=== PATIENT | male | born 1940 | race Caucasian/White ===

== ENCOUNTER → 2019-07-28 08:41 | Outpatient (BNVA) | payer MEDICARE, BC, SELFPAY | PROVIDERS: Family Provider Family Medicine; PCP Family Medicine; Visit Provider Internal Medicine Cardiovascular Disease | DX: I48.91 Unspecified atrial fibrillation (principal) | CPT/HCPCS: 85610 ==

== ENCOUNTER → 2019-08-08 10:01 | Outpatient (BNVA) | payer MEDICARE, BC, SELFPAY | PROVIDERS: Family Provider Family Medicine; PCP Family Medicine; Visit Provider Family Medicine | DX: E11.9 Type 2 diabetes mellitus without complications (principal); I10 Essential (primary) hypertension; R35.1 Nocturia; N18.9 Chronic kidney disease, unspecified | CPT/HCPCS: 80053; 80061; 84153; 85025 ==

== ENCOUNTER 2019-08-15 10:51 | Outpatient (CLI) | payer MEDICARE, BC, SELFPAY ==
[2019-08-15 13:39] VITALS: O2SAT 96
== END 2019-08-15 10:52 | disposition home or self-care (01) ==
LOC: RT 10:56
PROVIDERS: Family Provider Family Medicine; PCP Family Medicine; Visit Provider Internal Medicine Critical Care Medicine
DX: J44.9 Chronic obstructive pulmonary disease, unspecified (principal)
CPT/HCPCS: 94060; 94726; 94729

== ENCOUNTER → 2019-09-01 08:29 | Outpatient (BNVA) | payer MEDICARE, BC, SELFPAY | PROVIDERS: Family Provider Family Medicine; PCP Family Medicine; Visit Provider Internal Medicine Cardiovascular Disease | DX: I48.91 Unspecified atrial fibrillation (principal); Z79.01 Long term (current) use of anticoagulants | CPT/HCPCS: 85610 ==

== ENCOUNTER → 2019-09-08 08:39 | Outpatient (BNVA) | payer MEDICARE, BC, SELFPAY | PROVIDERS: Family Provider Family Medicine; PCP Family Medicine; Visit Provider Internal Medicine Cardiovascular Disease | DX: I48.91 Unspecified atrial fibrillation (principal) | CPT/HCPCS: 85610 ==

== ENCOUNTER → 2019-10-06 08:10 | Outpatient (BNVA) | payer MEDICARE, BC, SELFPAY | PROVIDERS: Family Provider Family Medicine; PCP Family Medicine; Visit Provider Internal Medicine Cardiovascular Disease | DX: I48.91 Unspecified atrial fibrillation (principal) | CPT/HCPCS: 85610 ==

== ENCOUNTER 2019-11-05 13:32 | Emergency (ER) | payer MEDICARE, BC, SELFPAY ==
[2019-11-05 13:42] VITALS: BP 138/90; PULSE 76; RESP 22; TEMP 36.6; O2SAT 93; BMI 28.5
--- NOTE | 2019-11-05 13:51 | XR_ITS ---
WS: [id number] PORTABLE CHEST HISTORY: dyspnea/cough COMPARISON: 05/22/2019 Improved aeration bilaterally. No residual pneumonia or atelectasis. Lungs are hyperinflated. No pleu ral effusion or pneumothorax. Cardiac size: Normal. Mediastinum/Aorta: Mild atherosclerosis aorta. No osseous abnormality seen. XR/XR chest 1V portable [id number] IMPRESSION: Resolved atelectasis in the lower lung. No pneumonia.
--- NOTE | 2019-11-05 13:54 | W.ED.SOB ---
HPI - SOB/Dyspnea General: Chief Complaint: Shortness of Breath/Dyspnea Stated Complaint: SOB Time Seen by Provider: 11/05/19 13:44 History of Present Illness: HPI Narrative: 79-year-old male comes in complaining of increased shortness of breath for the last 2 months. He normally is on oxygen at 2 L/min by nasal cannula at home is recently been increasing it up to 3 L/min. He is on oxygen due to his COPD. Additionally he has had intermittent atrial fibrillation in the past he denies any congestive heart failure. He denies any history of coronary artery disease. He does notice that the breathing becomes more difficult and wakes him up in the middle the night. He is noticed both orthopnea and PND he denies any fever. He has an increased cough with increased sputum production but no change in character of sputum. He has noted significantly improved with albuterol. He denies nausea vomiting diarrhea dysuria urgency or frequency denies hematochezia melena hematemesis coffee-ground emesis or chest pain. MD elicited complaint: shortness of breath Pertinent past history: COPD Onset (ago): day(s) (2) Timing: intermittent Severity: severe Exacerbating factors: lying flat, exertion and coughing Relieving factors: oxygen and rest Known history of: COPD Associated symptoms: Reports chest congestion, cough and orthopnea; Deny abdominal pain, chest pain, diaphoresis, dizziness, extremity pain, fever(s), hemoptysis, lightheadedness, myalgias, nausea, palpitations, paresthesias, polydipsia, polyuria, rash, sense of impending doom, syncope, vomiting or other Treatment prior to arrival: oxygen Review of Systems Const: Denies: fever or diaphoresis ENMT: Denies: throat pain, ear pain, nasal discharge or nasal congestion Card: Reports: shortness of breath when lying down; Denies: chest pain, palpitations, lightheadedness or syncope Resp: Reports: shortness of breath, productive cough (Increase in volume of sputum production but no change in character) and chest congestion; Denies: coughing up blood GI: Denies: abdominal pain, nausea or vomiting : Denies: flank pain, painful urination, urinary frequency or urinary urgency Musc: Denies: extremity pain Skin/Breast: Denies: rash or itching Neuro: Denies: dizziness Endo: Denies: excessive urination or excessive thirst PFSH ED PFSH: Medical History Atopic dermatitis, unspecified CAP (community acquired pneumonia) CKD (chronic kidney disease) COPD (chronic obstructive pulmonary disease) Dyslipidemia Edema leg Essential (primary) hypertension GERD (gastroesophageal reflux disease) Gout, unspecified Orthopnea Pain in left finger(s) Pain in right knee Type 2 diabetes mellitus without complications Unspecified atrial fibrillation Surgical History History of cholecystectomy History of prostate surgery History of total knee replacement Family History Other Cancer Social History Smoking and tobacco status: former smoker Quit status (tobacco): has quit using tobacco Year quit tobacco: 2009 - 1PPD x 50 Years Second hand smoke exposure: No Alcohol intake: current Lives independently: Yes Household members: spouse Marital status: Current occupational status: retired Current gender identity: Male Physical Exam Const: COMMON NORMALS: no apparent distress GENERAL APPEARANCE: cooperative and comfortable ORIENTATION/CONSCIOUSNESS: Yes awake, Yes oriented to person, Yes oriented to place and Yes oriented to time HENMT: COMMON NORMALS: normocephalic, head/scalp atraumatic, hearing grossly normal bilaterally, external ears normal, EAC's normal, TM's normal bilaterally, nasal mucous membranes and turbinates normal, moist oral mucous membranes and oropharynx normal HEAD & SCALP: normocephalic and atraumatic NOSE: nasal mucous membranes and turbinates normal EXTERNAL EAR: Yes external ears normal EXTERNAL AUDITORY CANAL: EAC's normal TYMPANIC MEMBRANE: TM's normal bilaterally Eye: COMMON NORMALS: PERRL, EOMs intact bilaterally, conjunctivae normal and no scleral icterus CONJUNCTIVA: Yes conjunctivae normal PUPIL: Yes PERRL Neck/C-Spine: COMMON NORMALS: full ROM, no lymphadenopathy, supple and no JVD Lymph: LYMPHATIC: no lymphadenopathy noted and no lymphedema noted Resp: AUSCULTATION: wheezes and diminished lung sounds Cardio: COMMON NORMALS: no JVD, regular rate, regular rhythm and no murmurs RATE: regular rate RHYTHM: regular rhythm GI: COMMON NORMALS: soft to palpation and no hepatosplenomegaly AUSCULTATION: Yes normoactive bowel sounds PALPATION: Yes soft, No tender, No guarding and Yes no hepatosplenomegaly Extremity: COMMON NORMALS: normal to inspection, normal capillary refill, no clubbing, cyanosis or edema, no calf tenderness and no pedal edema Neuro: SENSORIUM/ORIENTATION: Yes oriented to person, Yes oriented to place and Yes oriented to time Skin: COMMON NORMALS: no rashes or lesions noted GENERAL SKIN EXAM: no rashes or lesions noted Course Vital Signs: Vital signs: Vital Signs Temperature 97.8 F 11/05/19 13:42 Pulse Rate 78 11/05/19 16:52 Respiratory Rate 17 11/05/19 16:52 Blood Pressure 143/87 11/05/19 16:52 Pulse Oximetry 96 11/05/19 16:52 MDM - SOB/Dyspnea MDM Narrative: Medical decision making narrative: Recheck with primary care doctor within the next week. Start doxycycline and prednisone taper use albuterol as needed if worsens return Lab Data: Labs: Lab Results 11/05/19 11/05/19 11/05/19 Range/Units 14:00 14:00 14:00 WBC 16.4 H (4.0-10.0) 10^3/ uL RBC 5.52 H (4.1-5.3) 10^6/u L Hgb 16.4 (11.7-16.6) g/dL Hct 51.2 (42.0-52.0) % MCV 92.8 (80-94) fL MCH 29.7 (28.0-34.0) pg MCHC 32.0 (30.0-36.0) g/dL RDW 13.2 (12.1-15.1) % Plt Count 265 (130-400) 10^3/c mm MPV 9.5 (7.4-10.4) fL Neut % (Auto) 56.2 % Lymph % (Auto) 24.3 % [place] % (Auto) 6.9 % Eos % (Auto) 11.6 % Baso % (Auto) 0.4 % Neut # (Auto) 9.2 H (1.8-7.7) 10^3/u L Lymph # (Auto) 4.0 (0.8-4.8) 10^3/u L [place] # (Auto) 1.1 H (0.2-0.9) 10^3/u L Eos # (Auto) 1.9 H (0.0-0.8) 10^3/u L Baso # (Auto) 0.1 (0.0-0.1) 10^3/u L Nucleated RBC % (a uto) 0 % Nucleated RBCs # 0.0 /100WBC Sodium 137 (136-145) mmol/L Potassium 4.4 (3.5-5.1) mmol/L Chloride 100 (98-107) mmol/L Carbon Dioxide 25 (22-29) mmol/L Anion Gap 16.4 (5-19) BUN 21 (8-23) mg/dL Creatinine 1.3 H (0.7-1.2) mg/dL Glucose 189 H (65-115) mg/dL Calculated Osmolal ity 286 (285-295) mOsm/k g Calcium 10.1 (8.5-10.5) mg/dL Total Bilirubin 0.5 (0.15-1.2) mg/dL AST 20 (0-40) U/L ALT 25 (0-41) U/L Alkaline Phosphata se 132 H (40-130) IU/L Troponin T Baselin e 24 H (0-15) ng/mL Troponin T 120 Min [place] (0-15) ng/mL Delta Troponin T (0-10) ABS# NT-Pro-B Natriuret Pep 130 (0-450) pg/mL Total Protein 6.9 (6.6-8.7) g/dL Albumin 4.0 (3.5-5.2) g/dL Globulin 2.9 (1.3-4.6) g/dL Urine Color (Yellow) Urine Appearance (CLEAR) Urine pH (5-7) Ur Specific Gravit y (1.005-1.030) Urine Protein (Negative) Urine Glucose (UA) (Normal) Urine Ketones (Negative) Urine Blood (Negative) Urine Nitrate (Negative) Urine Bilirubin (NEGATIVE) Urine Urobilinogen (Negative) mg/dL Ur Leukocyte Joselyn ase (Negative) Urine RBC (0-2) /hpf Urine WBC (0-5) /hpf Ur Squamous Epith Cells (0-5) Urine Bacteria (NONE) 11/05/19 11/05/19 Range/Units 15:30 15:49 WBC (4.0-10.0) 10^3/ uL RBC (4.1-5.3) 10^6/u L Hgb (11.7-16.6) g/dL Hct (42.0-52.0) % MCV (80-94) fL MCH (28.0-34.0) pg MCHC (30.0-36.0) g/dL RDW (12.1-15.1) % Plt Count (130-400) 10^3/c mm MPV (7.4-10.4) fL Neut % (Auto) % Lymph % (Auto) % [place] % (Auto) % Eos % (Auto) % Baso % (Auto) % Neut # (Auto) (1.8-7.7) 10^3/u L Lymph # (Auto) (0.8-4.8) 10^3/u L [place] # (Auto) (0.2-0.9) 10^3/u L Eos # (Auto) (0.0-0.8) 10^3/u L Baso # (Auto) (0.0-0.1) 10^3/u L Nucleated RBC % (a uto) % Nucleated RBCs # /100WBC Sodium (136-145) mmol/L Potassium (3.5-5.1) mmol/L Chloride (98-107) mmol/L Carbon Dioxide (22-29) mmol/L Anion Gap (5-19) BUN (8-23) mg/dL Creatinine (0.7-1.2) mg/dL Glucose (65-115) mg/dL Calculated Osmolal ity (285-295) mOsm/k g Calcium (8.5-10.5) mg/dL Total Bilirubin (0.15-1.2) mg/dL AST (0-40) U/L ALT (0-41) U/L Alkaline Phosphata se (40-130) IU/L Troponin T Baselin e (0-15) ng/mL Troponin T 120 Min [place] 22.10 H (0-15) ng/mL Delta Troponin T -1.90 L (0-10) ABS# NT-Pro-B Natriuret Pep (0-450) pg/mL Total Protein (6.6-8.7) g/dL Albumin (3.5-5.2) g/dL Globulin (1.3-4.6) g/dL Urine Color Yellow (Yellow) Urine Appearance Clear (CLEAR) Urine pH 6 (5-7) Ur Specific Gravit y 1.010 (1.005-1.030) Urine Protein Trace (Negative) Urine Glucose (UA) Norm (Normal) Urine Ketones Negative (Negative) Urine Blood 2+ H (Negative) Urine Nitrate Negative (Negative) Urine Bilirubin Neg (NEGATIVE) Urine Urobilinogen Norm (Negative) mg/dL Ur Leukocyte Joselyn ase Negative (Negative) Urine RBC 10-15 H (0-2) /hpf Urine WBC None (0-5) /hpf Ur Squamous Epith Cells None (0-5) Urine Bacteria Trace (NONE) Discharge Plan Discharge Patient Disposition: Home, Self-Care Clinical Impression: COPD exacerbation Condition: Stable Prescriptions: New doxycycline hyclate 100 mg capsule 100 mg PO BID 10 Days Qty: 20 RF: 0 Medrol (Rashel) 4 mg tablets,dose pack See Rx Instructions .ROUTE .COMPLEX Qty: 21 RF: 0 albuterol sulfate 90 mcg/actuation HFA aerosol inhaler 2 inh INHALATION Q4H PRN (Reason: shortness of breath or wheezing) Qty: 18 RF: 0 No Action Proair Digihaler 90 mcg/actuation aero powdr breath act w/sensor 90 mcg INHALATION Q6H PRN (Reason: shortness of breath or wheezing) 90 Days Qty: 3 RF: 2 metoprolol tartrate 50 mg tablet 50 mg PO BID RF: 0 vit C,E,Zn,Wy-ydbep6-agb-zeax 250-2.5-0.5 mg capsule 1 cap PO DAILY RF: 0 hydrochlorothiazide 25 mg tablet 37.5 mg PO DAILY RF: 0 Incruse Ellipta 62.5 mcg/actuation blister with device 1 inh INHALATION DAILY Qty: 30 RF: 3 ipratropium-albuterol 0.5 mg-3 mg(2.5 mg base)/3 mL solution for nebulization 3 ml INHALATION Q6H PRN (Reason: wheezing) Qty: 360 RF: 3 allopurinol 300 mg tablet 150 mg PO DAILY Qty: 30 RF: 0 warfarin 4 mg tablet 4 mg PO DAILY 30 Days Qty: 30 RF: 6 atorvastatin [Lipitor] 20 mg tablet 20 mg PO DAILY Qty: 30 RF: 0 multivitamin Tablet 1 tab PO DAILY RF: 0 Benadryl 25 mg Capsule 25 mg PO BEDTIME RF: 0 loratadine 10 mg Tablet 10 mg PO DAILY RF: 0 amlodipine 5 mg tablet 5 mg PO DAILY RF: 0 Tradjenta 5 mg tablet 5 mg PO DAILY RF: 0 colchicine 0.6 mg Capsule 1.2 mg PO DAILY RF: 0 Discharge Orders: Discharge Order (Routine); Ordered 11/05/19 Ordered By: Tuan Cleveland Referrals: Autumn Pierre DO [Primary Care Provider] - Discharge Diet: Advance as tolerated Discharge Activity: Limit activity as instructed Activity Restrictions/Additional Instructions: Follow-up with your primary care doctor within a week. Discharge Date/Time: 11/05/19 16:54 Coding Level of Care Code ED Tipple Repairer for Clarig Fwd Exam Comprehensive
[2019-11-05 14:11] LABS: Basophils # 0.1 10^3/uL (0.0-0.1); Basophils % 0.4 %; Eosinophils # 1.9 10^3/uL (0.0-0.8); Eosinophils % 11.6 %; Hematocrit 51.2 % (42.0-52.0); Hemoglobin 16.4 g/dL (11.7-16.6); Lymphocytes % 24.3 %; Mean Corpuscular Hemoglobin 29.7 pg (28.0-34.0); Mean Corpuscular Volume 92.8 fL (80-94); Mean Platelet Volume 9.5 fL (7.4-10.4); Monocytes # 1.1 10^3/uL (0.2-0.9); Monocytes % 6.9 %; Neutrophils # 9.2 10^3/uL (1.8-7.7); Neutrophils % 56.2 %; Nucleated Red Blood Cells % 0 %; Platelet Count 265 10^3/cmm (130-400); Red Blood Count 5.52 10^6/uL (4.1-5.3); Red Cell Distribution Width 13.2 % (12.1-15.1); White Blood Count 16.4 10^3/uL (4.0-10.0)
[2019-11-05 14:45] LABS: Alanine Aminotransferase 25 U/L (0-41); Alkaline Phosphatase 132 IU/L (40-130); Anion Gap 16.4 (5-19); Aspartate Amino Transferase 20 U/L (0-40); Blood Urea Nitrogen 21 mg/dL (8-23); Calcium 10.1 mg/dL (8.5-10.5); Carbon Dioxide 25 mmol/L (22-29); Chloride 100 mmol/L (98-107); Globulin 2.9 g/dL (1.3-4.6); Glucose 189 mg/dL (65-115); NT Pro B Type Natriuretic Pept 130 pg/mL (0-450); Osmolality Calculated 286 mOsm/kg (285-295); Potassium 4.4 mmol/L (3.5-5.1); Sodium 137 mmol/L (136-145); Total Bilirubin 0.5 mg/dL (0.15-1.2); Total Protein 6.9 g/dL (6.6-8.7)
--- NOTE | 2019-11-05 15:16 | ECG_ITS ---
Measurements Intervals [place] Rate: 67 P: 80 MN: 146 QRS: 42 QRSD: 86 T: 85 QT: 355 QTc: 375 SINUS RHYTHM POSSIBLE RIGHT VENTRICULAR CONDUCTION DELAY [RSR (QR) IN V1/V2] ST DEVIATION AND MODERATE T-WAVE ABNORMALITY, CONSIDER LATERAL ISCHEMIA Compared to ECG 05/20/2019 01:22:07 Ventricular premature complex(es) no longer present Incomplete right bundle-branch block no longer present T-wave abnormality still present Possible ischemia still present Electronically Signed On 11-05-2019 19:28:41 CDT by Sparkle Paz M.D. [id number] goodman
[2019-11-05 16:12] LABS: Troponin(5th) Baseline 24 ng/mL (0-15)
[2019-11-05 16:47] LABS: Add Urine Microscopic? YES; Bilirubin Urine Neg (NEGATIVE); Blood Urine 2+ (Negative); Glucose Urine UA Norm (Normal); Ketones Urine Negative (Negative); Leukocyte Esterase Urine Negative (Negative); Nitrate Urine Negative (Negative); Protein Urine Trace (Negative); Urine Appearance Clear (CLEAR); Urine Color Yellow (Yellow); Urobilinogen Urine Norm (Negative); pH Urine 6 (5-7)
[2019-11-05 16:52] VITALS: BP 143/87; PULSE 78; RESP 17; O2SAT 96
[2019-11-05 16:52] LABS: Add Urine Culture? Yes; Bacteria Urine TRACE
--- NOTE | 2019-11-06 14:16 | DCPLANNER ---
land development project manager had message to schedule an out patient stress test for patient. land development project manager got order signed, and faxed order to centralized scheduling. land development project manager will call for appointment information.
--- NOTE | 2019-11-12 15:34 | DCPLANNER ---
Patients stress test has been cancelled.
== END 2019-11-05 16:54 | disposition home or self-care (01) ==
PROVIDERS: Emergency Provider Family Medicine; Family Provider Family Medicine; PCP Family Medicine
DX: J44.1 Chronic obstructive pulmonary disease with (acute) exacerbation (principal); Z79.01 Long term (current) use of anticoagulants; E78.5 Hyperlipidemia, unspecified; I10 Essential (primary) hypertension; K21.9 Gastro-esophageal reflux disease without esophagitis; E11.9 Type 2 diabetes mellitus without complications; I48.91 Unspecified atrial fibrillation; Z87.891 Personal history of nicotine dependence; Z79.899 Other long term (current) drug therapy
CPT/HCPCS: 12345; 36415; 71045; 80053; 81001; 83880; 84484; 85025; 87086; 93005; 99282; 99283

== ENCOUNTER → 2019-11-26 08:57 | Outpatient (BNVA) | payer MEDICARE, BC, SELFPAY | PROVIDERS: Family Provider Family Medicine; PCP Family Medicine; Visit Provider Family Medicine | DX: E78.5 Hyperlipidemia, unspecified (principal) | CPT/HCPCS: 80061 ==

== ENCOUNTER 2019-12-22 09:17 | Outpatient (CLI) | payer MEDICARE, BC, SELFPAY ==
[2019-12-22 09:59] LABS: Basophils # 0.1 10^3/uL (0.0-0.1); Basophils % 0.3 %; Eosinophils # 0.5 10^3/uL (0.0-0.8); Eosinophils % 2.7 %; Hematocrit 47.2 % (42.0-52.0); Hemoglobin 15.2 g/dL (11.7-16.6); Lymphocytes # 4.3 10^3/uL (0.8-4.8); Lymphocytes % 22.3 %; Mean Corpuscular HGB Conc 32.2 g/dL (30.0-36.0); Mean Corpuscular Hemoglobin 30.5 pg (28.0-34.0); Mean Corpuscular Volume 94.8 fL (80-94); Mean Platelet Volume 9.9 fL (7.4-10.4); Monocytes # 1.4 10^3/uL (0.2-0.9); Monocytes % 7.2 %; Neutrophils # 12.9 10^3/uL (1.8-7.7); Neutrophils % 66.6 %; Nucleated Red Blood Cells % 0 %; Platelet Count 243 10^3/cmm (130-400); Red Blood Count 4.98 10^6/uL (4.1-5.3); Red Cell Distribution Width 13.6 % (12.1-15.1); White Blood Count 19.3 10^3/uL (4.0-10.0)
[2019-12-22 10:12] LABS: Creatinine Urine, Random 108 mg/dL (39-259); Microalbumin Random Urine 12 ug/dL (0-20)
[2019-12-22 10:26] LABS: Microalbum Creatinine Ratio Ur 111 mg/dL (0-20)
[2019-12-22 10:28] LABS: 25 Hydroxy Vitamin D 26 ng/mL (30-100); Albumin Level 4.1 g/dL (3.5-5.2); Anion Gap 16.2 (5-19); Blood Urea Nitrogen 32 mg/dL (8-23); Calcium 9.8 mg/dL (8.5-10.5); Carbon Dioxide 28 mmol/L (22-29); Chloride 100 mmol/L (98-107); Glucose 137 mg/dL (65-115); Phosphorus 3.5 mg/dL (2.5-4.5); Potassium 5.2 mmol/L (3.5-5.1); Sodium 139 mmol/L (136-145)
[2019-12-22 10:45] LABS: Parathyroid Hormone 75.3 pg/mL (15-65)
== END 2019-12-22 09:18 | disposition home or self-care (01) ==
LOC: LAB 09:23
PROVIDERS: PCP Family Medicine; Visit Provider Internal Medicine Nephrology
DX: N18.3 Chronic kidney disease, stage 3 (moderate) (principal)
CPT/HCPCS: 36415; 80069; 82044; 82306; 82310; 83970; 85025

== ENCOUNTER 2020-01-25 13:41 | Emergency (ER) | payer MEDICARE, BC, SELFPAY ==
[2020-01-25] VITALS (8 sets, daily range): BP systolic 120–153; BP diastolic 75–100; PULSE 81–175; RESP 18–28; TEMP 37–37.1; O2SAT 92–97; BMI 27.9
--- NOTE | 2020-01-25 13:44 | ECG_ITS ---
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 Measurements Intervals [place] Rate: 174 P: [place]: -1 QRS: -47 QRSD: 147 T: -32 QT: 248 QTc: 423 Interpretive Statements ATRIAL FIBRILLATION WITH RAPID VENTRICULAR RESPONSE RIGHT BUNDLE BRANCH BLOCK [120+ ms QRS DURATION, UPRIGHT V1, 40+ ms S IN I/aVL/V4/V5/V6] LEFT ANTERIOR FASCICULAR BLOCK [QRS AXIS <= -45, QR IN I, RS IN II] CRITICAL TEST RESULT Compared to ECG 11/05/2019 16:22:50 Right bundle-branch block now present Left anterior fascicular block now present Sinus rhythm no longer present T-wave abnormality no longer present Possible ischemia no longer present Electronically Signed On 01-25-2020 22:03:38 CDT by Patsy Louis M.D. [id number]
--- NOTE | 2020-01-25 13:55 | XRR_ITS ---
PROCEDURE INFORMATION: Exam: XR Chest, 1 View Exam date and time: 01/25/2020 1:57 PM Age: 79 years old Clinical indication: Chest pain; Additional info: Afib TECHNIQUE: Imaging protocol: XR of the chest Views: 1 view. COMPARISON: CR XR chest 1V portable [id number] 11/05/2019 1:56 PM FINDINGS: Lungs: Unremarkable. No consolidation. Pleural space: Unremarkable. No pleural effusion. No pneumothorax. Heart/Mediastinum: Unremarkable. No cardiomegaly. Bones/joints: Unremarkable. XR/XR chest 1V portable [id number] IMPRESSION: No acute findings.
--- NOTE | 2020-01-25 13:55 | W.ED.ARRPALP ---
HPI - Arrhythmia/Palpitations General: Chief Complaint: Arrhythmia/Palpitations Stated Complaint: NECK PAIN; ELEVATED HEART RATE Time Seen by Provider: 01/25/20 13:43 Source: patient, family and old records reviewed History of Present Illness: HPI narrative: 79-year-old male with paroxysmal A. fib with neck pain for at least 24 hours he felt like there was a pop in his neck. He has had neck surgery earlier this year with a plate placed per his . He tells me he cannot move his neck from side to side and when his came home from the [place] today he was complaining of neck pain and fast heart rate. He did not take his medication including metoprolol this morning. He is also on warfarin I suspect because of his atrial fibrillation. No cough but he does feel short of breath with his racing heart. No chest pain. No known exposure to COVID-19 Associated symptoms: Deny nausea or vomiting Review of Systems General: Reports: 10 or more systems reviewed and unremarkable except in HPI and below Const: Denies: fever(s) or chills Eyes: Denies: change in vision ENMT: Reports: other (Neck pain); Denies: throat pain Card: Reports: palpitations, irregular heart rhythm, lightheadedness and dyspnea on exertion Resp: Reports: dyspnea; Denies: productive cough GI: Denies: abdominal pain, nausea, vomiting or change in bowel habits : Denies: flank pain Musc: Denies: muscle weakness Skin/Breast: Denies: rash Neuro: Denies: headache(s) Psych: Denies: hopelessness or suicidal ideation Endo: Denies: polyuria Fid[place]io/Lymph: Denies: easy bruising or easy bleeding All/Imm: Denies: urticaria PFSH ED PFSH: Medical History (Updated 01/25/20 @ 15:41 by Shruthi Tena MD) Atopic dermatitis, unspecified CAP (community acquired pneumonia) CKD (chronic kidney disease) COPD (chronic obstructive pulmonary disease) Dyslipidemia Edema leg Essential (primary) hypertension GERD (gastroesophageal reflux disease) Gout, unspecified Orthopnea Pain in left finger(s) Pain in right knee Type 2 diabetes mellitus without complications Unspecified atrial fibrillation Surgical History History of cholecystectomy History of prostate surgery History of total knee replacement Family History Other Cancer Social History Smoking and tobacco status: former smoker Quit status (tobacco): has quit using tobacco Year quit tobacco: 2009 - 1PPD x 50 Years Second hand smoke exposure: No Alcohol intake: current Lives independently: Yes Household members: spouse Marital status: Current occupational status: retired History of recent travel: No Current gender identity: Male Physical Exam Const: COMMON NORMALS: no acute distress, patient oriented x3, alert and well nourished HENMT: COMMON NORMALS: normocephalic and Normal external nose present HEAD & SCALP: normocephalic NOSE: Normal external nose present MOUTH: no trismus Eye: COMMON NORMALS: EOMs intact bilaterally and conjunctivae normal CONJUNCTIVA: Yes conjunctivae normal Neck/C-Spine: COMMON NORMALS: no lymphadenopathy and supple CERVICAL SPINE: Yes other (States he cannot move his neck from side to side and that it hurts when I touch the muscles on the sides of his neck. There is no bony tenderness midline.) Lymph: LYMPHATIC: no lymphadenopathy noted Resp: COMMON NORMALS: normal respiratory effort, No retractions, No use of accessory muscles and clear to auscultation bilaterally EFFORT & INSPECTION: Yes able to speak in complete sentences AUSCULTATION: clear to auscultation bilaterally Cardio: RATE: tachycardic OTHER: Irregularly irregular with a heart rate in the 170s GI: COMMON NORMALS: Normal to inspection, nondistended, normoactive bowel sounds present, Soft to palpation, non-tender and no masses INSPECTION: Yes normal to inspection AUSCULTATION: Yes normoactive bowel sounds PALPATION: Yes Soft to palpation, No Guarding due to palpation present (GI) and No Rigid due to palpation Back/Pelvis: OTHER: Normal range of motion Extremity: GENERAL: Yes normal exam except as noted OTHER: Trace pitting edema bilateral LE Neuro: COMMON NORMALS: patient oriented x3 and CN's II-XII intact bilaterally SENSORIUM/ORIENTATION: Yes alert SPEECH: speech normal Psych: COMMON NORMALS: mental status grossly normal Skin: COMMON NORMALS: no rashes or lesions noted GENERAL SKIN EXAM: no rashes or lesions noted Course Vital Signs: Vital signs: Vital Signs Temperature 98.7 F 01/25/20 15:16 Pulse Rate 82 01/25/20 15:41 Respiratory Rate 18 01/25/20 15:36 Blood Pressure 153/79 01/25/20 15:16 Pulse Oximetry 97 01/25/20 15:36 MDM - Arrhythmia/Palpitations MDM Narrative: Medical decision making narrative: Atrial fib with rate in the 170s now rate controlled after 2 doses of IV metoprolol 5 mg each. He is maintained a normal pulse while in the ER after that was done. I did give him Valium for muscle relaxer which only minimally helped he still had a lot of pain on the sides of his neck and was tender to touch on the sternocleidomastoids bilaterally. After IV morphine and a [place] his pain is down to a 4 out of 5. He is to call Dr. Mirza who performed his spinal surgery tomorrow for further evaluation and follow-up. Told him to return to the ER if numbness weakness or tingling in his upper extremities. But currently he has muscle spasm in his neck and this may or may not be related to herniated disc and we do not have capability to do non-emergent MRI. Lab Data: Attestation: I reviewed the patient's lab results. Labs: Lab Results 01/25/20 01/25/20 01/25/20 Range/Units 13:49 13:49 13:49 WBC 19.1 H (4.0-10.0) 10^3/ uL RBC 5.54 H (4.1-5.3) 10^6/u L Hgb 17.3 H (11.7-16.6) g/dL Hct 51.7 (42.0-52.0) % MCV 93.3 (80-94) fL MCH 31.2 (28.0-34.0) pg MCHC 33.5 (30.0-36.0) g/dL RDW 13.5 (12.1-15.1) % Plt Count 265 (130-400) 10^3/c mm MPV 9.9 (7.4-10.4) fL Neut % (Auto) 60.5 % Lymph % (Auto) 24.5 % [place] % (Auto) 11.8 % Eos % (Auto) 2.2 % Baso % (Auto) 0.3 % Neut # (Auto) 11.56 H (1.8-7.7) 10^3/u L Lymph # (Auto) 4.7 (0.8-4.8) 10^3/u L [place] # (Auto) 2.3 H (0.2-0.9) 10^3/u L Eos # (Auto) 0.4 (0.0-0.8) 10^3/u L Baso # (Auto) 0.1 (0.0-0.1) 10^3/u L Nucleated RBC % (a uto) 0 % Nucleated RBCs # 0.0 /100WBC PT 24.70 H (10.5-13.3) SECO NDS INR 2.14 H (0.8-1.2) Sodium 137 (136-145) mmol/L Potassium 4.7 (3.5-5.1) mmol/L Chloride 98 (98-107) mmol/L Carbon Dioxide 27 (22-29) mmol/L Anion Gap 16.7 (5-19) BUN 27 H (8-23) mg/dL Creatinine 1.5 H (0.7-1.2) mg/dL Glucose 157 H (65-115) mg/dL Calculated Osmolal ity 284 L (285-295) mOsm/k g Calcium 9.7 (8.5-10.5) mg/dL Total Bilirubin 0.9 (0.15-1.2) mg/dL AST 13 (0-40) U/L ALT 20 (0-41) U/L Alkaline Phosphata se 112 (40-130) IU/L Total Protein 7.0 (6.6-8.7) g/dL Albumin 4.2 (3.5-5.2) g/dL Globulin 2.8 (1.3-4.6) g/dL EKG Data^: EKG 1: Attestation: I personally reviewed and interpreted this EKG as follows: EKG interpretation date: 01/25/20 EKG interpretation time: 13:58 Interpretation: A. fib with rate of 174 left axis deviation. Other EKG comments: Chest X-Ray 01/25/20 13:55 IMPRESSION: No acute findings. Discharge Plan Discharge Patient Disposition: Home, Self-Care Clinical Impression: Neck pain, Atrial fibrillation with rapid ventricular response Condition: Stable Prescriptions: [place] 5-325 mg tablet 1 tab PO Q6H PRN (Reason: pain) Qty: 10 RF: 0 cyclobenzaprine 5 mg tablet 5 mg PO BID PRN (Reason: muscle spasm) Qty: 10 RF: 0 No Action Proair Digihaler 90 mcg/actuation aero powdr breath act w/sensor 90 mcg INHALATION Q6H PRN (Reason: shortness of breath or wheezing) 90 Days Qty: 3 RF: 2 vit C,E,Zn,Pj--wyj-zeax 250-2.5-0.5 mg capsule 1 cap PO DAILY RF: 0 hydrochlorothiazide 25 mg tablet 37.5 mg PO DAILY RF: 0 Incruse Ellipta 62.5 mcg/actuation blister with device 1 inh INHALATION DAILY Qty: 30 RF: 3 metoprolol tartrate 50 mg tablet 50 mg PO BID Qty: 60 RF: 5 atorvastatin [Lipitor] 20 mg tablet 20 mg PO DAILY Qty: 30 RF: 3 Tradjenta 5 mg tablet 5 mg PO DAILY Qty: 90 RF: 0 ipratropium-albuterol 0.5 mg-3 mg(2.5 mg base)/3 mL solution for nebulization See Rx Instructions .ROUTE .COMPLEX Qty: 360 RF: 6 fluticasone propion-salmeterol [Advair Diskus] 500-50 mcg/dose blister with device 1 inh INHALATION BID Qty: 60 RF: 3 allopurinol 300 mg tablet 150 mg PO DAILY Qty: 30 RF: 1 loratadine 10 mg Tablet 20 mg PO DAILY RF: 0 amlodipine 5 mg tablet 5 mg PO DAILY RF: 0 warfarin 4 mg tablet See Rx Instructions .ROUTE .COMPLEX RF: 0 Referrals: Autumn Pierre DO [Primary Care Provider] - Patient Instructions: Atrial Fibrillation (ED), Cervical Sprain (ED) Activity Restrictions/Additional Instructions: Be sure to take all your prescribed medications so that you do not have a recurrence of your atrial fibrillation. Ice on and off to your neck/sides of your neck for comfort today. Call Dr. Mirza's office tomorrow for follow-up and further advice on plan for neck pain. Return to the ER if numbness weakness or tingling in her upper extremities that is associated with the neck pain. Discharge Date/Time: 01/25/20 15:59 Coding Level of Care Code ED [place] Former Machine Operator for Chg Fwd Exam Comprehensive
[2020-01-25] MEDS: diazePAM 5 mg Tablet PO (14:01)
[2020-01-25] MEDS: metoprolol tartrate 1 mg/1 mL SDV 5 mL 5 MG IV ×2 (14:01→14:04)
[2020-01-25] MEDS: ondansetron 2 mg/ML SDV 2 mL 4 MG IVP (14:01)
[2020-01-25 14:18] LABS: INR 2.14 (0.8-1.2)
[2020-01-25 14:22] LABS: Alanine Aminotransferase 20 U/L (0-41); Albumin Level 4.2 g/dL (3.5-5.2); Alkaline Phosphatase 112 IU/L (40-130); Anion Gap 16.7 (5-19); Aspartate Amino Transferase 13 U/L (0-40); Blood Urea Nitrogen 27 mg/dL (8-23); Calcium 9.7 mg/dL (8.5-10.5); Carbon Dioxide 27 mmol/L (22-29); Chloride 98 mmol/L (98-107); Globulin 2.8 g/dL (1.3-4.6); Glucose 157 mg/dL (65-115); Osmolality Calculated 284 mOsm/kg (285-295); Potassium 4.7 mmol/L (3.5-5.1); Sodium 137 mmol/L (136-145); Total Bilirubin 0.9 mg/dL (0.15-1.2)
[2020-01-25 14:26] LABS: Basophils # 0.1 10^3/uL (0.0-0.1); Basophils % 0.3 %; Eosinophils # 0.4 10^3/uL (0.0-0.8); Eosinophils % 2.2 %; Hematocrit 51.7 % (42.0-52.0); Hemoglobin 17.3 g/dL (11.7-16.6); Lymphocytes # 4.7 10^3/uL (0.8-4.8); Lymphocytes % 24.5 %; Mean Corpuscular HGB Conc 33.5 g/dL (30.0-36.0); Mean Corpuscular Hemoglobin 31.2 pg (28.0-34.0); Mean Corpuscular Volume 93.3 fL (80-94); Mean Platelet Volume 9.9 fL (7.4-10.4); Monocytes # 2.3 10^3/uL (0.2-0.9); Monocytes % 11.8 %; Neutrophils # 11.56 10^3/uL (1.8-7.7); Neutrophils % 60.5 %; Nucleated Red Blood Cells % 0 %; Platelet Count 265 10^3/cmm (130-400); Red Blood Count 5.54 10^6/uL (4.1-5.3); Red Cell Distribution Width 13.5 % (12.1-15.1); White Blood Count 19.1 10^3/uL (4.0-10.0)
[2020-01-25] MEDS: HYDROcodone-acetaminophen 5-325 mg Tablet 1 TAB PO (14:47)
[2020-01-25] MEDS: morphine 4 mg/mL SDV 1 mL IVP (14:48)
[2020-01-25] MEDS: ipratropium-albuterol 3 mL Neb INHALATION (15:32)
--- NOTE | 2020-01-25 15:37 | PC.NURSE ---
RT IN ROOM FOR BREATHING TX
== END 2020-01-25 15:59 | disposition home or self-care (01) ==
PROVIDERS: Emergency Provider Emergency Medicine; PCP Family Medicine
DX: M54.2 Cervicalgia (principal); I48.20 Chronic atrial fibrillation, unspecified; Z79.01 Long term (current) use of anticoagulants; J44.9 Chronic obstructive pulmonary disease, unspecified; E78.5 Hyperlipidemia, unspecified; I10 Essential (primary) hypertension; E11.9 Type 2 diabetes mellitus without complications; Z87.891 Personal history of nicotine dependence
CPT/HCPCS: 12345; 71045; 80053; 85025; 85610; 93005; 94640; 94660; 96374; 96375; 99282; 99284; J2270; J2405; J3490

== ENCOUNTER → 2020-04-06 14:22 | Outpatient (BNVA) | payer MEDICARE, BC, SELFPAY | PROVIDERS: PCP Family Medicine; Visit Provider Family Medicine | DX: E11.9 Type 2 diabetes mellitus without complications (principal) | CPT/HCPCS: 83036 ==

== ENCOUNTER 2020-06-01 09:01 | Outpatient (CLI) | payer MEDICARE, BC, SELFPAY ==
[2020-06-01 09:40] LABS: Basophils # 0.1 10^3/uL (0.0-0.1); Basophils % 0.3 %; Eosinophils # 1.1 10^3/uL (0.0-0.8); Eosinophils % 6.3 %; Hematocrit 49.6 % (42.0-52.0); Hemoglobin 16.1 g/dL (11.7-16.6); Lymphocytes # 5.3 10^3/uL (0.8-4.8); Lymphocytes % 30.6 %; Mean Corpuscular HGB Conc 32.5 g/dL (30.0-36.0); Mean Corpuscular Hemoglobin 30.5 pg (28.0-34.0); Mean Corpuscular Volume 93.9 fL (80-94); Mean Platelet Volume 9.7 fL (7.4-10.4); Monocytes # 1.2 10^3/uL (0.2-0.9); Neutrophils # 9.47 10^3/uL (1.8-7.7); Neutrophils % 55.2 %; Nucleated Red Blood Cells % 0 %; Platelet Count 252 10^3/cmm (130-400); Red Blood Count 5.28 10^6/uL (4.1-5.3); Red Cell Distribution Width 12.6 % (12.1-15.1); White Blood Count 17.2 10^3/uL (4.0-10.0)
[2020-06-01 10:07] LABS: Creatinine Urine, Random 126 mg/dL (39-259); Microalbumin Random Urine 17 ug/dL (0-20)
[2020-06-01 10:08] LABS: Albumin Level 4.5 g/dL (3.5-5.2); Anion Gap 14.9 (5-19); Blood Urea Nitrogen 31 mg/dL (8-23); Calcium 9.9 mg/dL (8.5-10.5); Carbon Dioxide 28 mmol/L (22-29); Chloride 99 mmol/L (98-107); Glucose 142 mg/dL (65-115); Phosphorus 2.8 mg/dL (2.5-4.5); Potassium 3.9 mmol/L (3.5-5.1); Sodium 138 mmol/L (136-145)
[2020-06-01 10:12] LABS: Microalbum Creatinine Ratio Ur 135 mg/dL (0-20)
[2020-06-01 10:32] LABS: Calcium 9.8 mg/dL (8.5-10.5); Parathyroid Hormone 57.5 pg/mL (15-65)
== END 2020-06-01 09:02 | disposition home or self-care (01) ==
LOC: LAB 09:05
PROVIDERS: PCP Family Medicine; Visit Provider Internal Medicine Nephrology
DX: N18.30 Chronic kidney disease, stage 3 unspecified (principal)
CPT/HCPCS: 36415; 80069; 82044; 82310; 83970; 85025

== ENCOUNTER 2020-06-09 12:24 | Outpatient (CLI) | payer MEDICARE, BC, SELFPAY ==
--- NOTE | 2020-06-09 12:29 | XR_ITS ---
WS: [id number] Chest 2 views, 06/09/2020 Clinical Data: Shortness of breath Comparison: Portable chest, 01/25/2020. Findings: No nodules, masses or effusions are seen. The heart is normal. The pulmonary vascularity is not increased. No pneumonia or pneumothorax is seen. The diaphragms are flattened. The aortic arch a nd descending aorta show mild calcification and tortuosity. The patient has had an anterior cervical disc fusion. XR/XR chest 2V* [id number] Impression: Atherosclerosis and hyperinflation.
== END 2020-06-09 12:25 | disposition home or self-care (01) ==
PROVIDERS: PCP Family Medicine; Visit Provider Internal Medicine Critical Care Medicine
DX: J44.1 Chronic obstructive pulmonary disease with (acute) exacerbation (principal); R06.02 Shortness of breath
CPT/HCPCS: 71046

== ENCOUNTER 2020-06-29 08:00 | Outpatient (CLI) | payer MEDICARE, BC, SELFPAY ==
[2020-06-29 08:59] LABS: Albumin Level 4.1 g/dL (3.5-5.2); Anion Gap 14.4 (5-19); Blood Urea Nitrogen 32 mg/dL (8-23); Calcium 9.6 mg/dL (8.5-10.5); Carbon Dioxide 29 mmol/L (22-29); Chloride 100 mmol/L (98-107); Glucose 176 mg/dL (65-115); Phosphorus 2.5 mg/dL (2.5-4.5); Potassium 4.4 mmol/L (3.5-5.1); Sodium 139 mmol/L (136-145)
== END 2020-06-29 08:01 | disposition home or self-care (01) ==
LOC: LAB 08:06
PROVIDERS: PCP Family Medicine; Visit Provider Internal Medicine Nephrology
DX: I12.9 Hypertensive chronic kidney disease with stage 1 through stage 4 chronic kidney disease, or unspecified chronic kidney disease (principal); E11.29 Type 2 diabetes mellitus with other diabetic kidney complication; N18.32 Chronic kidney disease, stage 3b
CPT/HCPCS: 80069

== ENCOUNTER 2020-09-21 07:53 | Outpatient (CLI) | payer MEDICARE, BC, SELFPAY ==
[2020-09-21 08:33] LABS: Albumin Level 3.9 g/dL (3.5-5.2); Blood Urea Nitrogen 29 mg/dL (8-23); Calcium 9.4 mg/dL (8.5-10.5); Carbon Dioxide 27 mmol/L (22-29); Chloride 102 mmol/L (98-107); Glucose 140 mg/dL (65-115); Phosphorus 3.2 mg/dL (2.5-4.5); Sodium 140 mmol/L (136-145)
[2020-09-22 00:40] LABS: Creatinine Urine, Random 54 mg/dL (39-259); Microalbumin Random Urine 17 ug/dL (0-20)
[2020-09-22 00:42] LABS: Microalbum Creatinine Ratio Ur 315 mg/dL (0-20)
== END 2020-09-21 07:54 | disposition home or self-care (01) ==
PROVIDERS: PCP Family Medicine; Visit Provider Internal Medicine Nephrology
DX: I10 Essential (primary) hypertension (principal); E11.29 Type 2 diabetes mellitus with other diabetic kidney complication; N18.32 Chronic kidney disease, stage 3b
CPT/HCPCS: 80069; 82044

== ENCOUNTER → 2020-10-15 08:48 | Outpatient (BNVA) | payer MEDICARE, BC, SELFPAY | PROVIDERS: PCP Family Medicine; Visit Provider Family Medicine | DX: E11.9 Type 2 diabetes mellitus without complications (principal); E78.5 Hyperlipidemia, unspecified; F41.1 Generalized anxiety disorder; R45.4 Irritability and anger | CPT/HCPCS: 80061; 83036 ==

== ENCOUNTER → 2021-05-11 08:35 | Outpatient (BNVA) | payer MEDICARE, BC, SELFPAY | PROVIDERS: PCP Family Medicine; Visit Provider Family Medicine | DX: E78.5 Hyperlipidemia, unspecified (principal); N18.9 Chronic kidney disease, unspecified; E11.22 Type 2 diabetes mellitus with diabetic chronic kidney disease; Z79.899 Other long term (current) drug therapy | CPT/HCPCS: 80053; 80061; 83036; 84443; 85025 ==

== ENCOUNTER → 2021-05-16 09:19 | Outpatient (BNVA) | payer MEDICARE, BC, SELFPAY | PROVIDERS: PCP Family Medicine; Visit Provider Internal Medicine Cardiovascular Disease | DX: I48.0 Paroxysmal atrial fibrillation (principal); N18.9 Chronic kidney disease, unspecified | CPT/HCPCS: 80053; 84443 ==

== ENCOUNTER → 2021-08-26 09:12 | Outpatient (BNVA) | payer MEDICARE, BC, SELFPAY | PROVIDERS: PCP Family Medicine; Visit Provider Family Medicine | DX: R33.9 Retention of urine, unspecified (principal) | CPT/HCPCS: 81000 ==

== ENCOUNTER → 2021-09-15 09:06 | Outpatient (BNVA) | payer MEDICARE, BC, SELFPAY | PROVIDERS: PCP Family Medicine; Visit Provider Internal Medicine Cardiovascular Disease | DX: Z79.01 Long term (current) use of anticoagulants (principal) ==

== ENCOUNTER → 2021-09-20 12:16 | Outpatient (BNVA) | payer MEDICARE, BC, SELFPAY | PROVIDERS: PCP Family Medicine; Visit Provider Internal Medicine Cardiovascular Disease | DX: Z79.01 Long term (current) use of anticoagulants (principal) ==

== ENCOUNTER 2021-09-28 11:15 | Outpatient (CLI) | payer MEDICARE, BC, SELFPAY ==
[2021-09-28 11:55] LABS: Basophils # 0.1 10^3/uL (0.0-0.1); Basophils % 0.3 %; Eosinophils # 0.8 10^3/uL (0.0-0.8); Eosinophils % 4.8 %; Hematocrit 46.6 % (42.0-52.0); Hemoglobin 15.2 g/dL (11.7-16.6); Lymphocytes # 6.9 10^3/uL (0.8-4.8); Lymphocytes % 39.5 %; Mean Corpuscular HGB Conc 32.6 g/dL (30.0-36.0); Mean Corpuscular Hemoglobin 31.1 pg (28.0-34.0); Mean Corpuscular Volume 95.3 fl (80-94); Monocytes # 1.1 10^3/uL (0.2-0.9); Monocytes % 6.6 %; Neutrophils # 8.39 10^3/uL (1.8-7.7); Neutrophils % 48.2 %; Nucleated Red Blood Cells % 0 %; Platelet Count 189 10^3/cmm (130-400); Red Blood Count 4.89 10^6/uL (4.1-5.3); Red Cell Distribution Width 14.6 % (12.1-15.1); White Blood Count 17.4 10^3/uL (4.0-10.0)
[2021-09-28 12:08] LABS: Albumin Level 3.9 g/dL (3.5-5.2); Anion Gap 14.3 (5-19); Blood Urea Nitrogen 28 mg/dL (8-23); Calcium 9.5 mg/dL (8.5-10.5); Carbon Dioxide 24 mmol/L (22-29); Chloride 104 mmol/L (98-107); Glucose 78 mg/dL (65-115); Phosphorus 2.5 mg/dL (2.5-4.5); Potassium 4.3 mmol/L (3.5-5.1); Sodium 138 mmol/L (136-145)
[2021-09-28 12:24] LABS: Calcium 9.6 mg/dL (8.5-10.5)
[2021-09-28 12:31] LABS: Parathyroid Hormone 77.2 pg/mL (15-65)
[2021-09-28 12:33] LABS: Creatinine Urine, Random 118 mg/dL (39-259); Microalbumin Random Urine 26 ug/dL (0-20)
[2021-09-28 12:35] LABS: Microalbum Creatinine Ratio Ur 220 mg/dL (0-20)
== END 2021-09-28 11:16 | disposition home or self-care (01) ==
PROVIDERS: PCP Family Medicine; Visit Provider Internal Medicine Nephrology
DX: N18.31 Chronic kidney disease, stage 3a (principal)
CPT/HCPCS: 80069; 82044; 82310; 83970; 85025

== ENCOUNTER → 2021-10-04 09:21 | Outpatient (BNVA) | payer MEDICARE, BC, SELFPAY | PROVIDERS: PCP Family Medicine; Visit Provider Internal Medicine Cardiovascular Disease | DX: I48.91 Unspecified atrial fibrillation (principal); Z79.01 Long term (current) use of anticoagulants ==

== ENCOUNTER → 2021-10-14 08:41 | Outpatient (BNVA) | payer MEDICARE, BC, SELFPAY | PROVIDERS: PCP Family Medicine; Visit Provider Internal Medicine Cardiovascular Disease | DX: Z79.01 Long term (current) use of anticoagulants (principal) ==

== ENCOUNTER → 2021-10-21 13:26 | Outpatient (BNVA) | payer MEDICARE, BC, SELFPAY | PROVIDERS: PCP Family Medicine; Visit Provider Internal Medicine Cardiovascular Disease | DX: Z79.01 Long term (current) use of anticoagulants (principal) ==

== ENCOUNTER → 2021-10-25 15:12 | Outpatient (BNVA) | payer MEDICARE, BC, SELFPAY | PROVIDERS: PCP Family Medicine; Visit Provider Internal Medicine Cardiovascular Disease | DX: Z79.01 Long term (current) use of anticoagulants (principal) ==

== ENCOUNTER 2021-10-26 09:15 | Emergency (ER) | payer MEDICARE, BC, SELFPAY ==
[2021-10-26] VITALS (8 sets, daily range): BP systolic 127–146; BP diastolic 56–102; PULSE 67–93; RESP 16–24; TEMP 37.4; O2SAT 91–93; BMI 25.8
--- NOTE | 2021-10-26 09:41 | W.ED.SOB ---
HPI - SOB/Dyspnea General: Chief Complaint: Shortness of Breath/Dyspnea Stated Complaint: Sore throat, cough, fevor, throwing up Time Seen by Provider: 10/26/21 09:34 Source: patient Mode of arrival: ambulatory Limitations: no limitations History of Present Illness: HPI Narrative: 81-year-old male who presents to the emergency room complaining of cough and shortness of breath for the last 4 days. Patient has COPD uses oxygen intermittently but lately has been using it continuously. Normally he uses 2-1/2 L at night presents here with oxygen saturation around 90% on room air. He has a low-grade fever and reports increase of productive cough. He denies any hemoptysis. No chest pain. MD elicited complaint: shortness of breath and cough Pertinent past history: COPD Onset (ago): day(s) (4) Timing: constant Severity: moderate Exacerbating factors: exertion and coughing Relieving factors: oxygen, rest and bronchodilators Known history of: COPD Associated symptoms: Reports chest congestion and cough; Deny abdominal pain, chest pain, diaphoresis, dizziness, extremity pain, fever(s), hemoptysis, lightheadedness, myalgias, nausea, orthopnea, palpitations, paresthesias, polydipsia, polyuria, rash, sense of impending doom, syncope or vomiting Treatment prior to arrival: oxygen and bronchodilator Review of Systems Const: Denies: fever(s) or diaphoresis ENMT: Denies: throat pain, ear or mastoid pain, nasal discharge or nasal congestion Card: Denies: chest pain, palpitations, lightheadedness, syncope or orthopnea Resp: Reports: dyspnea, productive cough, wheezing, change in phlegm color and chest congestion; Denies: hemoptysis GI: Denies: abdominal pain, nausea or vomiting : Denies: flank pain, dysuria, urinary frequency or urinary urgency Musc: Denies: extremity pain Skin/Breast: Denies: rash or pruritus Neuro: Denies: dizziness Endo: Denies: polyuria or polydipsia PFSH ED PFSH: Medical History Atopic dermatitis, unspecified CAP (community acquired pneumonia) CKD (chronic kidney disease) COPD (chronic obstructive pulmonary disease) Dyslipidemia Edema leg Essential (primary) hypertension GERD (gastroesophageal reflux disease) Gout, unspecified Long-term (current) use of anticoagulants, INR goal 2.0-3.0 Orthopnea Pain in left finger(s) Pain in right knee Type 2 diabetes mellitus without complications Unspecified atrial fibrillation Surgical History History of cholecystectomy History of prostate surgery History of total knee replacement Family History Other Cancer Social History Smoking and tobacco status: former smoker Quit status (tobacco): has quit using tobacco Year quit tobacco: 2009 - 1PPD x 50 Years Second hand smoke exposure: No Alcohol intake: current Lives independently: Yes Household members: spouse Marital status: Current occupational status: retired History of recent travel: No Current gender identity: Male Physical Exam Const: COMMON NORMALS: no acute distress GENERAL APPEARANCE: cooperative and comfortable ORIENTATION/CONSCIOUSNESS: Yes awake, Yes oriented to person, Yes oriented to place and Yes oriented to time HENMT: COMMON NORMALS: normocephalic, atraumatic and hearing grossly normal bilaterally HEAD & SCALP: normocephalic and atraumatic Neck/C-Spine: COMMON NORMALS: no JVD Resp: COMMON NORMALS: normal respiratory effort, No retractions and No use of accessory muscles AUSCULTATION: rhonchi and wheezes Cardio: COMMON NORMALS: no JVD, regular rate, regular rhythm and No murmurs present (Cardio) RATE: regular rate RHYTHM: regular rhythm GI: COMMON NORMALS: Soft to palpation and No hepatosplenomegaly present AUSCULTATION: Yes normoactive bowel sounds PALPATION: Yes Soft to palpation, No Tenderness to palpation present (GI), No Guarding due to palpation present (GI) and Yes No hepatosplenomegaly present Extremity: COMMON NORMALS: normal to inspection, capillary refill normal, no clubbing, cyanosis or edema, no calf tenderness and no pedal edema Neuro: SENSORIUM/ORIENTATION: Yes oriented to person, Yes oriented to place and Yes oriented to time Skin: COMMON NORMALS: no rashes or lesions noted GENERAL SKIN EXAM: no rashes or lesions noted Course Vital Signs: Vital signs: Vital Signs Temperature 99.4 F 10/26/21 09:41 Pulse Rate 77 10/26/21 14:10 Respiratory Rate 20 H 10/26/21 14:10 Blood Pressure 142/72 10/26/21 12:40 Pulse Oximetry 93 10/26/21 14:10 MDM - SOB/Dyspnea Medical Decision Making Moderate exacerbation of COPD with nebulizers patient is improved. He is still requiring oxygen. We will discharge him home on antibiotics steroid taper aggressive use of beta agonist. To follow-up with his primary care doctor within the next few days return if has further problems. Medical Records I reviewed the patient's medical records. Lab Data I reviewed the patient's lab results. : 10/26/21 09:57 10/26/21 11:57 Labs/Radiology: Radiology Impressions Chest X-Ray 10/26/21 09:42 IMPRESSION: 1. Pulmonary hyperinflation and emphysematous changes. 2. No acute cardiopulmonary finding. Laboratory Results WBC 28.3 10^3/uL (4.0-10.0) H 10/26/21 09:57 RBC 4.87 10^6/uL (4.1-5.3) 10/26/21 09:57 Hgb 15.4 g/dL (11.7-16.6) 10/26/21 09:57 Hct 45.9 % (42.0-52.0) 10/26/21 09:57 MCV 94.3 fl (80-94) H 10/26/21 09:57 MCH 31.6 pg (28.0-34.0) 10/26/21 09:57 MCHC 33.6 g/dL (30.0-36.0) 10/26/21 09:57 RDW 14.6 % (12.1-15.1) 10/26/21 09:57 Plt Count 190 10^3/cmm (130-400) 10/26/21 09:57 MPV 10.0 fL (7.4-10.4) 10/26/21 09:57 Neut % (Auto) 66.1 % 10/26/21 09:57 Lymph % (Auto) 27.7 % 10/26/21 09:57 [place] % (Auto) 5.0 % 10/26/21 09:57 Eos % (Auto) 0.5 % 10/26/21 09:57 Baso % (Auto) 0.2 % 10/26/21 09:57 Neut # (Auto) 18.64 10^3/uL (1.8-7.7) H 10/26/21 09:57 Lymph # (Auto) 7.8 10^3/uL (0.8-4.8) H 10/26/21 09:57 [place] # (Auto) 1.4 10^3/uL (0.2-0.9) H 10/26/21 09:57 Eos # (Auto) 0.2 10^3/uL (0.0-0.8) 10/26/21 09:57 Baso # (Auto) 0.1 10^3/uL (0.0-0.1) 10/26/21 09:57 Nucleated RBC % (auto) 0 % 10/26/21 09:57 Nucleated RBCs # 0.0 /100WBC 10/26/21 09:57 PT 245.00 SECONDS (12.1-14.9) H 10/26/21 11:57 INR 2.10 (0.8-1.2) H 10/26/21 11:57 Specimen Type Arterial 10/26/21 09:50 Sample Site Radial, right 10/26/21 09:50 ABG pH 7.47 (7.35-7.45) H 10/26/21 09:50 ABG pCO2 32.2 mmHg (35-45) L 10/26/21 09:50 ABG pO2 62.2 mmHg (80.0-100.0) L 10/26/21 09:50 ABG HCO3 23.2 mmol/L (22-26) 10/26/21 09:50 ABG O2 Saturation 93.9 10/26/21 09:50 ABG Base Excess 0.2 mmol/L (-2.0-2.0) 10/26/21 09:50 Hema Test Pos 10/26/21 09:50 A-a O2 Gradient 14.4 mmHg (5-10) H 10/26/21 09:50 Hematocrit 47.4 % (42-52) 10/26/21 09:50 Hgb O2 Saturation 91.9 % (95-100) L 10/26/21 09:50 Carboxyhemoglobin 1.1 %THgb (0.4-20.1) 10/26/21 09:50 Methemoglobin 0.9 % (0.4-1.5) 10/26/21 09:50 Total Hemoglobin 15.5 g/dL (14-18) 10/26/21 09:50 Sodium 138.0 mmol/L (131-143) 10/26/21 09:50 Potassium 4.0 mmol/L (3.5-5.0) 10/26/21 09:50 Glucose 144.0 mg/dL (70-115) H 10/26/21 09:50 Ionized Calcium 1.2 mmol/L (1.1-1.4) 10/26/21 09:50 O2 Delivery Device Nc 10/26/21 09:50 O2 Liters/Min 2.5 % 10/26/21 09:50 FiO2 30.0 % 10/26/21 09:50 Clay Grinder ID [place] 10/26/21 09:50 Sodium 135 mmol/L (136-145) L 10/26/21 11:57 Potassium 4.1 mmol/L (3.5-5.1) 10/26/21 11:57 Chloride 100 mmol/L (98-107) 10/26/21 11:57 Carbon Dioxide 23 mmol/L (22-29) 10/26/21 11:57 Anion Gap 16.1 (5-19) 10/26/21 11:57 BUN 27 mg/dL (8-23) H 10/26/21 11:57 Creatinine 1.5 mg/dL (0.7-1.2) H 10/26/21 11:57 GFR Calculation Not Reportable 10/26/21 11:57 Glucose 159 mg/dL (65-115) H 10/26/21 11:57 Calculated Osmolality 288 mOsm/kg (285-295) 10/26/21 11:57 Calcium 9.1 mg/dL (8.5-10.5) 10/26/21 11:57 Total Bilirubin 1.4 mg/dL (0.15-1.2) H 10/26/21 11:57 AST 14 U/L (0-40) 10/26/21 11:57 ALT 23 U/L (0-41) 10/26/21 11:57 Alkaline Phosphatase 92 IU/L (40-130) 10/26/21 11:57 Total Protein 6.0 g/dL (6.6-8.7) L 10/26/21 11:57 Albumin 3.9 g/dL (3.5-5.2) 10/26/21 11:57 Globulin 2.1 g/dL (1.3-4.6) 10/26/21 11:57 Discharge Plan Discharge Patient Disposition: Home Clinical Impression: Acute exacerbation of chronic obstructive airways disease Condition: Stable Prescriptions: New ondansetron HCl 4 mg tablet 4 mg PO Q6H PRN (Reason: nausea and vomiting) Qty: 20 0RF levofloxacin 750 mg tablet 750 mg PO DAILY 10 Days 0RF albuterol sulfate 90 mcg/actuation HFA aerosol inhaler 2 inh INHALATION Q4H PRN (Reason: shortness of breath or wheezing) Qty: 18 0RF No Action PreserVision AREDS-2 250-90-40-1 mg capsule 1 tab PO DAILY 0RF metoprolol tartrate 25 mg tablet 25 mg PO DAILY PRN (Reason: tachycardia) Qty: 30 3RF Rx Instructions: For HR> 120 bpm Lipitor 20 mg tablet 20 mg PO BEDTIME 0RF amiodarone 200 mg tablet 200 mg PO BEDTIME 0RF citalopram 20 mg tablet 20 mg PO QAM 0RF Advair Diskus 500-50 mcg/dose blister with device 1 inh inhalation BID 0RF Rx Instructions: 340 B allopurinol 300 mg tablet 150 mg PO QAM 0RF hydrochlorothiazide 25 mg tablet 25 mg PO QAM 0RF albuterol sulfate 90 mcg/actuation HFA aerosol inhaler 1 puff inhalation QID PRN (Reason: Shortness Of Breath) 0RF ipratropium-albuterol 0.5 mg-3 mg(2.5 mg base)/3 mL solution for nebulization 3 ml inhalation Q6H PRN (Reason: Wheezing) 0RF tamsulosin 0.4 mg capsule 0.4 mg PO QPM 0RF Tradjenta 5 mg tablet 5 mg PO BEDTIME 0RF Incruse Ellipta 62.5 mcg/actuation blister with device 1 inh inhalation DAILY 0RF hydrocodone-acetaminophen 5-325 mg tablet 1 tab PO Q6H PRN (Reason: Pain) 0RF warfarin 3 mg tablet See Rx Instructions mg .ROUTE .COMPLEX 0RF Protocol: Dose Management Condition: Sunday Dose/Route: 3 mg Instruction: 1 x 3 mg tablet Condition: Sunday Dose/Route: 2 mg Instruction: 2 x 1 mg tablets Condition: Sunday Dose/Route: 3 mg Instruction: 1 x 3 mg tablet Condition: Sunday Dose/Route: 2 mg Instruction: 2 x 1 mg tablets Condition: Dose/Route: 3 mg Instruction: 1 x 3 mg tablet Condition: Sunday Dose/Route: 2 mg Instruction: 2 x 1 mg tablets Condition: Sunday Dose/Route: 3 mg Instruction: 1 x 3 mg tablet Protocol Text: Adjustment Start Date: Sunday10/25/21 INR Value: 2.5 INR Date: 10/24/21 Recheck Date: 11/01/21 Rx Instructions: 2mg po qam on sun,sun, and sun and 3mg po on sun,,,and sun Discharge Orders: Discharge ED (Routine); Ordered 10/26/21 Ordered By: Tuan Cleveland Referrals: Autumn Pierre DO [Primary Care Provider] - Discharge Diet: Usual diet Discharge Activity: Increase activity as tolerated Patient Instructions: Opioid Safety Activity Restrictions/Additional Instructions: Recheck with your primary care doctor within the next 2 days return if you have further problems. Coding Level of Care Code ED Engineering Inspection Assistant for 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
--- NOTE | 2021-10-26 09:42 | XR_ITS ---
WS: [id number] Exam: XR chest 1V portable [id number] Date/Time of Exam: 10/26/2021 9:43 AM Reason For Exam: dyspnea/cough Comparison 06/09/2020. The lungs are hyperinflated and clear. Cardiomediastinal silhouette is unremarkable. No pleural effus ions. Regional bony elements are intact. Fusion hardware partially visualized in the lower C-spine. XR/XR chest 1V portable [id number] IMPRESSION: 1. Pulmonary hyperinflation and emphysematous changes. 2. No acute cardiopulmonary finding.
--- NOTE | 2021-10-26 09:42 | ECG_ITS ---
[facility] Test Date: 2021-10-26 Pat Name: Jesús Cole Department: Room: Gender: Male Price Analyst: : 1940 Requested By: Tuan Sanchez Order Number: [id number] Gloria MD: Cameron Lopez M.D. Measurements Intervals [place] Rate: 93 P: 75 WV: 160 QRS: 42 QRSD: 85 T: 68 QT: 364 QTc: 455 Interpretive Statements SINUS RHYTHM WITH FREQUENT SUPRAVENTRICULAR PREMATURE COMPLEXES POSSIBLE RIGHT ATRIAL ENLARGEMENT [0.25mV P-WAVE] POSSIBLE LEFT ATRIAL ENLARGEMENT [-0.1mV P-WAVE IN V1/V2] POSSIBLE RIGHT VENTRICULAR CONDUCTION DELAY [RSR (QR) IN V1/V2] MINIMAL ST DEPRESSION [0.025+ mV ST DEPRESSION] ABNORMAL RHYTHM ECG Compared to ECG 01/25/2020 14:01:34 ST (T wave) deviation now present Atrial fibrillation no longer present Right bundle-branch block no longer present Left anterior fascicular block no longer present Electronically Signed On 10-26-2021 22:16:00 CDT by Cameron Lopez M.D. [id number]
[2021-10-26 10:02] LABS: ABG PCO2 32.2 mmHg (35-45); ABG PH Result 7.47 (7.35-7.45); Arterial Blood Gas Hematocrit 47.4 % (42-52); Base Excess ABG 0.2 mmol/L (-2.0-2.0); Blood Gas Allen Test Pos; Blood Gas Sample Type Arterial; Carboxyhemoglobin 1.1 %THgb (0.4-20.1); HCO3 ABG 23.2 mmol/L (22-26); HGB O2 Sat 91.9 % (95-100); Ionized Calcium Level - ABG 1.2 mmol/L (1.1-1.4); Methemoglobin 0.9 % (0.4-1.5); Oxygen Saturation ABG 93.9; PO2 ABG 62.2 mmHg (80.0-100.0); Total Hemoglobin 15.5 g/dL (14-18)
[2021-10-26 10:03] LABS: Alveolar-Arterial Oxygen Gradi 14.4 mmHg (5-10); Blood Gas LPM 2.5 %; Blood Gas Operator Identificat MONRO; Blood Gas Sample Site Radial, right; Oxygen Device NC
[2021-10-26] MEDS: ipratropium-albuterol 3 mL Neb INHALATION (10:05)
--- NOTE | 2021-10-26 10:11 | PC.NURSE ---
PT placed on continuous NIBP, SpO2, and CM
--- NOTE | 2021-10-26 10:12 | PC.NURSE ---
PT presented to ED with shortness of breath. Family states PT has had a fever the last few days. Pt placed on 2L/min O2 by NC. upon auscultation left lower lobe diminished with Rhonchi present. Right lower lobes and upper lobes bilat diminished.
[2021-10-26 10:28] LABS: Basophils # 0.1 10^3/uL (0.0-0.1); Basophils % 0.2 %; Eosinophils # 0.2 10^3/uL (0.0-0.8); Eosinophils % 0.5 %; Hematocrit 45.9 % (42.0-52.0); Hemoglobin 15.4 g/dL (11.7-16.6); Lymphocytes # 7.8 10^3/uL (0.8-4.8); Lymphocytes % 27.7 %; Mean Corpuscular HGB Conc 33.6 g/dL (30.0-36.0); Mean Corpuscular Hemoglobin 31.6 pg (28.0-34.0); Mean Corpuscular Volume 94.3 fl (80-94); Monocytes # 1.4 10^3/uL (0.2-0.9); Neutrophils # 18.64 10^3/uL (1.8-7.7); Neutrophils % 66.1 %; Nucleated Red Blood Cells % 0 %; Platelet Count 190 10^3/cmm (130-400); Red Blood Count 4.87 10^6/uL (4.1-5.3); Red Cell Distribution Width 14.6 % (12.1-15.1); White Blood Count 28.3 10^3/uL (4.0-10.0)
[2021-10-26 12:50] LABS: Alanine Aminotransferase 23 U/L (0-41); Albumin Level 3.9 g/dL (3.5-5.2); Alkaline Phosphatase 92 IU/L (40-130); Anion Gap 16.1 (5-19); Aspartate Amino Transferase 14 U/L (0-40); Blood Urea Nitrogen 27 mg/dL (8-23); Calcium 9.1 mg/dL (8.5-10.5); Carbon Dioxide 23 mmol/L (22-29); Chloride 100 mmol/L (98-107); Globulin 2.1 g/dL (1.3-4.6); Glucose 159 mg/dL (65-115); Osmolality Calculated 288 mOsm/kg (285-295); Potassium 4.1 mmol/L (3.5-5.1); Sodium 135 mmol/L (136-145); Total Bilirubin 1.4 mg/dL (0.15-1.2)
== END 2021-10-26 14:11 | disposition home or self-care (01) ==
PROVIDERS: Emergency Provider Family Medicine; PCP Family Medicine
DX: J44.1 Chronic obstructive pulmonary disease with (acute) exacerbation (principal); Z99.81 Dependence on supplemental oxygen; Z87.891 Personal history of nicotine dependence
CPT/HCPCS: 36415; 36600; 71045; 80051; 80053; 82330; 82805; 85025; 85610; 93005; 94640; 96374; 99284; J2930

== ENCOUNTER → 2021-11-01 10:06 | Outpatient (BNVA) | payer MEDICARE, BC, SELFPAY | PROVIDERS: PCP Family Medicine; Visit Provider Family Medicine | DX: E11.9 Type 2 diabetes mellitus without complications (principal); J44.1 Chronic obstructive pulmonary disease with (acute) exacerbation | CPT/HCPCS: 83036; 85025 ==

== ENCOUNTER → 2021-11-02 09:18 | Outpatient (BNVA) | payer MEDICARE, BC, SELFPAY | PROVIDERS: PCP Family Medicine; Visit Provider Internal Medicine Cardiovascular Disease | DX: Z79.01 Long term (current) use of anticoagulants (principal) ==

== ENCOUNTER → 2021-11-09 12:50 | Outpatient (BNVA) | payer MEDICARE, BC, SELFPAY | PROVIDERS: PCP Family Medicine; Visit Provider Internal Medicine Cardiovascular Disease | DX: Z79.01 Long term (current) use of anticoagulants (principal) ==

== ENCOUNTER 2021-11-14 09:23 | Oncology outpatient (recurring) (ONCR) | payer MEDICARE, BC, SELFPAY ==
[2021-11-14 13:15] LABS: LAB Peripheral Smear Sent for Review
[2021-11-17 09:18] LABS: Leukemia Profile (BBPL) See Report; Lymphoma Profile (BBPL) See Report
== END 2021-12-06 23:59 | disposition home or self-care (01) ==
LOC: ONCMED 09:25
PROVIDERS: PCP Family Medicine; Visit Provider Internal Medicine Hematology & Oncology
DX: D72.820 Lymphocytosis (symptomatic) (principal); J44.9 Chronic obstructive pulmonary disease, unspecified; I12.9 Hypertensive chronic kidney disease with stage 1 through stage 4 chronic kidney disease, or unspecified chronic kidney disease; E11.22 Type 2 diabetes mellitus with diabetic chronic kidney disease; N18.9 Chronic kidney disease, unspecified; K21.9 Gastro-esophageal reflux disease without esophagitis; Z79.899 Other long term (current) drug therapy; Z87.891 Personal history of nicotine dependence
CPT/HCPCS: 85025; 88184; 88185; 99204; 99999

== ENCOUNTER → 2021-11-17 08:39 | Outpatient (BNVA) | payer MEDICARE, BC, SELFPAY | PROVIDERS: PCP Family Medicine; Visit Provider Internal Medicine Cardiovascular Disease | DX: Z79.01 Long term (current) use of anticoagulants (principal) ==

== ENCOUNTER 2021-11-21 22:11 | Inpatient (IN) | payer MEDICARE, BC, SELFPAY ==
[2021-11-21 22:28] VITALS: BP 165/78; PULSE 59; RESP 16; TEMP 36.9; O2SAT 97; BMI 25.8
--- NOTE | 2021-11-21 23:34 | ED_ITS ---
Documented by User: JOAN Spears 11/22/21 15:31 HPI - Back Pain/Injury General: Chief Complaint: Back Pain/Injury Stated Complaint: FALL Time Seen by Provider: 11/21/21 23:23 History of Present Illness: Patient is a 81-year-old male that comes to the ED via EMS with left hip pain. Past medical history of type 2 diabetes, hypertension, COPD and A. fib. Patient does take warfarin. Injury occurred just prior to arrival. Patient says he was getting off his 4 vaughan today and noticed that his shoe was untied. He bent over to tie his shoe and fell forward landing on left hip. Denies any head injury, loss of consciousness, headache or neuro symptoms. He has been unable to bear any weight on left leg since injury. His had to to help him get into the house and then they called EMS out to house to bring him to the ED. Pain rated a 8 out of 10 pain. Pain worsens with any movement of left leg. Associated symptoms: Deny abdominal pain, chills, dysuria, fatigue, fever(s), hematuria, nausea or vomiting Review of Systems Const: Denies: fever(s), chills or fatigue Eyes: Denies: change in vision or eye discomfort ENMT: Denies: throat pain, odynophagia, nasal discharge or nasal congestion Card: Denies: chest pain, palpitations, edema, swelling of feet/ankles, dyspnea on exertion or orthopnea Resp: Denies: dyspnea, productive cough or non-productive cough GI: Denies: abdominal pain, nausea, vomiting, diarrhea, constipation or hematochezia : Denies: flank pain, difficulty urinating, dysuria or hematuria Musc: Reports: extremity pain (Left hip pain) and limited range of motion (Left hip); Denies: neck pain, back pain or extremity swelling Skin/Breast: Denies: rash or new lesions Neuro: Denies: headache(s), numbness in extremities or weakness in extremities PFS ED PFSH: Medical History Atopic dermatitis, unspecified CAP (community acquired pneumonia) CKD (chronic kidney disease) COPD (chronic obstructive pulmonary disease) Dyslipidemia Edema leg Essential (primary) hypertension GERD (gastroesophageal reflux disease) Gout, unspecified Long-term (current) use of anticoagulants, INR goal 2.0-3.0 Lymphocytosis Orthopnea Pain in left finger(s) Pain in right knee Type 2 diabetes mellitus without complications Unspecified atrial fibrillation Surgical History History of cholecystectomy History of prostate surgery History of total knee replacement Family History Other Cancer Social History Smoking and tobacco status: former smoker Quit status (tobacco): has quit using tobacco Year quit tobacco: 2009 1PPD x 50 Years Second hand smoke exposure: No Alcohol intake: current Lives independently: Yes Household members: spouse Marital status: Current occupational status: retired History of recent travel: No Current gender identity: Male Physical Exam Const: COMMON NORMALS: patient oriented x3 and alert GENERAL APPEARANCE: cooperative; not comfortable (Patient appears comfortable and in some pain while sitting on exam bed.) HENMT: COMMON NORMALS: normocephalic HEAD & SCALP: normocephalic MOUTH: Normal oral and palatal mucosa present THROAT: posterior oropharynx normal and uvula midline Neck/C-Spine: COMMON NORMALS: supple GENERAL: Yes normal visual inspection Resp: COMMON NORMALS: normal respiratory effort, No retractions, No use of accessory muscles and clear to auscultation bilaterally AUSCULTATION: clear to auscultation bilaterally Cardio: COMMON NORMALS: regular rate, regular rhythm, S1 normal heart sound present, S2 normal heart sound present, No gallops present (Cardio), No clicks present (Cardio), No murmurs present (Cardio) and Peripheral pulses 2+ throughout RATE: regular rate RHYTHM: regular rhythm HEART SOUNDS: S1 normal heart sound present and S2 normal heart sound present PERIPHERAL PULSES: Peripheral pulses 2+ throughout GI: COMMON NORMALS: Normal to inspection, nondistended, normoactive bowel sounds present, Soft to palpation, non-tender and no masses PALPATION: Yes Soft to palpation : COMMON NORMALS: Yes no CVA tenderness BLADDER/KIDNEY EXAM: Yes no CVA tenderness Back/Pelvis: COMMON NORMALS: no CVA tenderness Extremity: NARRATIVE EXTREMITY EXAM: Left hip?tenderness over greater trochanter. Patient's left leg does appear to be shortened but not externally rotated. Range of motion limited due to pain. Neurovascular tact. Neuro: COMMON NORMALS: patient oriented x3 and moves all extremities SENSORIUM/ORIENTATION: Yes alert Skin: GENERAL SKIN EXAM: dry skin Course Vital Signs: Vital signs: Vital Signs Temperature 95.6 F L 11/23/21 11:12 Pulse Rate 76 11/23/21 11:12 Respiratory Rate 12 11/23/21 11:12 Blood Pressure 147/55 11/23/21 11:12 Pulse Oximetry 95 11/23/21 11:12 MDM - Back Pain/Injury Medical Decision Making Patient is a 81-year-old male comes to the ED with left hip pain after fall. Patient tripped over denies any head injury, loss of consciousness, headache or any neuro symptoms. Vitals are stable. Patient appears in some pain while sitting on exam bed. Left leg appears a little shortened but not externally rotated. Neurovascular intact distally and patient has tenderness over the greater trochanter left hip. Limited range of motion due to pain. X-ray of left hip showed possible impacted femoral neck fracture, but radiologist recommended doing a CT a for further correlation. Hip CT was done and it did confirmacute impacted left femoral neck fracture. Spoke with Dr. Mckeon about patient's hip fracture and his need for admission. I contacted Dr. Harrell and left him a message about having patient admitted. Patient care was handed over to Dr. Mckeon he got patient admitted to hospital with Ortho consult. Labs I reviewed the patient's lab results. : 11/23/21 05:32 11/23/21 05:32 Radiology Impressions Hip/Pelvis X-Ray 11/21/21 23:42 IMPRESSION: Possible impacted femoral neck fracture. Correlation with CT may be helpful. Hip CT 11/22/21 01:43 IMPRESSION: 1. Acute impacted left femoral neck fracture with impaction laterally and posteriorly and some distraction medially and anteriorly. 2. Anterior and medial angulation of the impacted femoral neck fracture. Chest X-Ray 11/22/21 06:09 IMPRESSION: Chronic emphysema. No acute cardiopulmonary disease. Pelvis X-Ray 11/22/21 17:53 Impression: Left hip arthroplasty. Laboratory Results WBC 18.1 10^3/uL (4.0-10.0) H 11/22/21 03:40 RBC 4.71 10^6/uL (4.1-5.3) 11/22/21 03:40 Hgb 14.6 g/dL (11.7-16.6) 11/22/21 03:40 Hct 44.7 % (42.0-52.0) 11/22/21 03:40 MCV 94.9 fl (80-94) H 11/22/21 03:40 MCH 31.0 pg (28.0-34.0) 11/22/21 03:40 MCHC 32.7 g/dL (30.0-36.0) 11/22/21 03:40 RDW 13.3 % (12.1-15.1) 11/22/21 03:40 Plt Count 202 10^3/cmm (130-400) 11/22/21 03:40 MPV 9.9 fL (7.4-10.4) 11/22/21 03:40 Lymph % (Auto) Not Reportable 11/22/21 03:40 Terrell % (Auto) Not Reportable 11/22/21 03:40 Lymph # (Auto) Not Reportable 11/22/21 03:40 Terrell # (Auto) Not Reportable 11/22/21 03:40 Total Counted 100 (0-100) 11/22/21 03:40 Atypical Lymphs % 6.0 % (0-5) H 11/22/21 03:40 Absolute Neutrophils 9.6 10^3/cmm (1.4-6.5) H 11/22/21 03:40 Segmented Neutrophils 53 % 11/22/21 03:40 Abs Segm Neuts (Man) 9.6 10/cmm (1.6-7.1) H 11/22/21 03:40 Band Neutrophils 0.0 % 11/22/21 03:40 Abs Band Neuts (Man) 0.0 10^3/cmm (0.0-1.2) 11/22/21 03:40 Absolute Lymphocytes 7.6 10^3/cmm (1.2-3.4) H 11/22/21 03:40 Lymphocytes (Manual) 36 % 11/22/21 03:40 Monocytes (Manual) 4.0 % 11/22/21 03:40 Absolute Monocytes 0.7 10^3/cmm (0.1-0.6) H 11/22/21 03:40 Eosinophils (Manual) 1 % 11/22/21 03:40 Absolute Eosinophils 0.1 10^3/cmm (0.0-0.7) 11/22/21 03:40 Basophils (Manual) 0.0 % 11/22/21 03:40 Absolute Basophils 0.0 10^3/cmm (0.0-0.2) 11/22/21 03:40 Pathologist Review Yes 11/22/21 03:40 Smudge Cells 1+ H 11/22/21 03:40 Platelet Estimate Normal (Normal) 11/22/21 03:40 PT 28.50 SECONDS (12.1-14.9) H 11/22/21 03:40 INR 2.64 (0.8-1.2) H 11/22/21 03:40 APTT 39.7 SECONDS (23.9-36.7) H 11/22/21 03:40 Sodium 138 mmol/L (136-145) 11/22/21 03:40 Potassium 4.3 mmol/L (3.5-5.1) 11/22/21 03:40 Chloride 102 mmol/L (98-107) 11/22/21 03:40 Carbon Dioxide 25 mmol/L (22-29) 11/22/21 03:40 Anion Gap 15.3 (5-19) 11/22/21 03:40 BUN 33 mg/dL (8-23) H 11/22/21 03:40 Creatinine 1.4 mg/dL (0.7-1.2) H 11/22/21 03:40 GFR Calculation Not Reportable 11/22/21 03:40 Glucose 125 mg/dL (65-115) H 11/22/21 03:40 Calculated Osmolality 295 mOsm/kg (285-295) 11/22/21 03:40 Calcium 9.3 mg/dL (8.5-10.5) 11/22/21 03:40 Total Bilirubin 0.6 mg/dL (0.15-1.2) 11/22/21 03:40 AST 27 U/L (0-40) 11/22/21 03:40 ALT 35 U/L (0-41) 11/22/21 03:40 Alkaline Phosphatase 111 IU/L (40-130) 11/22/21 03:40 Total Protein 6.7 g/dL (6.6-8.7) 11/22/21 03:40 Albumin 4.2 g/dL (3.5-5.2) 11/22/21 03:40 Globulin 2.5 g/dL (1.3-4.6) 11/22/21 03:40 Discharge Plan Discharge Patient Disposition: Admitted As Inpatient Admit Provider: Anila Weber Clinical Impression: Closed fracture of left hip Condition: Stable Discharge Diet: Usual diet Discharge Activity: Limit activity as instructed, Use walker/crutches as instructed and As per PT/OT instructions Sign Out Sign Out Data: Patient Sign Out occurred on 11/22/21 at 03:37. Patient's care was discussed, and care was transferred from to Finesse Mckeon MD. Coding Level of Care Code ED Surgical Instrument Mechanic for Chg Fwd Exam Comprehensive Documented by User: Fniesse Mckeon MD 11/27/21 02:45 HPI - Back Pain/Injury General: Chief Complaint: Back Pain/Injury Stated Complaint: FALL Time Seen by Provider: 11/21/21 23:23 [facility] ED PFSH: Medical History Atopic dermatitis, unspecified CAP (community acquired pneumonia) CKD (chronic kidney disease) COPD (chronic obstructive pulmonary disease) Dyslipidemia Edema leg Essential (primary) hypertension GERD (gastroesophageal reflux disease) Gout, unspecified Long-term (current) use of anticoagulants, INR goal 2.0-3.0 Lymphocytosis Orthopnea Pain in left finger(s) Pain in right knee Type 2 diabetes mellitus without complications Unspecified atrial fibrillation Surgical History History of cholecystectomy History of prostate surgery History of total knee replacement Family History Other Cancer Social History Smoking and tobacco status: former smoker Quit status (tobacco): has quit using tobacco Year quit tobacco: 2010 - 1PPD x 50 Years Second hand smoke exposure: No Alcohol intake: current Lives independently: Yes Household members: spouse Marital status: Current occupational status: retired History of recent travel: No Current gender identity: Male Course Vital Signs: Vital signs: Vital Signs Temperature 95.6 F L 11/23/21 11:12 Pulse Rate 76 11/23/21 11:12 Respiratory Rate 12 11/23/21 11:12 Blood Pressure 147/55 11/23/21 11:12 Pulse Oximetry 95 11/23/21 11:12 MDM - Back Pain/Injury Medical Decision Making Patient is a 81-year-old male comes to the ED with left hip pain after fall. Patient tripped over denies any head injury, loss of consciousness, headache or any neuro symptoms. Vitals are stable. Patient appears in some pain while sitting on exam bed. Left leg appears a little shortened but not externally rotated. Neurovascular intact distally and patient has tenderness over the greater trochanter left hip. Limited range of motion due to pain. X-ray of left hip showed possible impacted femoral neck fracture, but radiologist recommended doing a CT a for further correlation. Hip CT was done and it did confirmacute impacted left femoral neck fracture. Spoke with Dr. Mckeon about patient's hip fracture and his need for admission. I contacted Dr. Harrell and left him a message about having patient admitted. Patient care was handed over to Dr. Mckeon he got patient admitted to hospital with Ortho consult. I discussed this case with JOAN Spears. I have reviewed documentation. I personally saw and evaluated the patient, I reperformed canales portions of E/M. Patient admitted for management of hip fracture. Finesse Mckeon MD Emergency Medicine Labs : 11/23/21 05:32 11/23/21 05:32 Radiology Impressions Hip/Pelvis X-Ray 11/21/21 23:42 IMPRESSION: Possible impacted femoral neck fracture. Correlation with CT may be helpful. Hip CT 11/22/21 01:43 IMPRESSION: 1. Acute impacted left femoral neck fracture with impaction laterally and posteriorly and some distraction medially and anteriorly. 2. Anterior and medial angulation of the impacted femoral neck fracture. Chest X-Ray 11/22/21 06:09
--- NOTE | 2021-11-21 23:42 | XRR_ITS ---
PROCEDURE INFORMATION: Exam: XR Left Hip Exam date and time: 11/22/2021 12:06 AM Age: 81 years old Clinical indication: Injury or trauma; Fall; Blunt trauma (contusions or hematomas); Left; Hip; Additional info: Fall injury with hip pain TECHNIQUE: Imaging protocol: XR Left hip. Views: 2 or 3 views hip with pelvis when performed. COMPARISON: US Renal Kidney Structu* [id number] 04/14/2019 8:54 AM FINDINGS: Bones/joints: Possible impacted femoral neck fracture. Correlation with CT may be helpful. Soft tissues: Unremarkable. XR/XR hip LT 2-3V wo/w pel* [id number] IMPRESSION: Possible impacted femoral neck fracture. Correlation with CT may be helpful.
[2021-11-21 23:55] VITALS: RESP 16; O2SAT 96
[2021-11-21] MEDS: morphine 4 mg/mL SDV 1 mL IM (23:55)
[2021-11-21 23:59] VITALS: BP 189/81; PULSE 78; RESP 16; O2SAT 96
[2021-11-22] VITALS (25 sets, daily range): BP systolic 95–193; BP diastolic 55–104; PULSE 61–102; RESP 10–20; TEMP 36.2–37.1; O2SAT 90–98; BMI 26.9
--- NOTE | 2021-11-22 01:43 | CTR_ITS ---
PROCEDURE INFORMATION: Exam: CT Left Lower Extremity Without Contrast, Hip Exam date and time: 11/22/2021 2:32 AM Age: 81 years old Clinical indication: Injury or trauma; Fall; Blunt trauma; Hip; Left; Additional info: Possible impacted femoral neck fracture TECHNIQUE: Imaging protocol: CT of the Left lower extremity without contrast was performed. Exam focused on the hip. Radiation optimization: All CT scans at this facility use at least one of these dose optimization techniques: automated exposure control; mA and/or kV adjustment per patient size (includes targeted exams where dose is matched to clinical indication); or iterative reconstruction. COMPARISON: CR (PELVIS, ) 11/22/2021 12:06 AM RADIATION DOSE METRICS: Total DLP (mGy-cm): 518.29 FINDINGS: Bones/joints: Acute impacted left femoral neck fracture with impaction laterally and posteriorly and some distraction medially and anteriorly. Anterior and medial angulation of the impacted femoral neck fracture. Soft tissues: Normal. Vasculature: Moderate calcified peripheral vascular disease. One or more calcified pelvic phleboliths. Bowel: Moderate descending and/or sigmoid colon diverticulosis without diverticulitis. CT/CT hip LT wo con* [id number] IMPRESSION: 1. Acute impacted left femoral neck fracture with impaction laterally and posteriorly and some distraction medially and anteriorly. 2. Anterior and medial angulation of the impacted femoral neck fracture.
[2021-11-22] MEDS: morphine 4 mg/mL SDV 1 mL IVP (03:50)
[2021-11-22] MEDS: ondansetron 2 mg/ML SDV 2 mL 4 MG IVP ×2 (03:52→07:48)
[2021-11-22 03:55] LABS: Hematocrit 44.7 % (42.0-52.0); Hemoglobin 14.6 g/dL (11.7-16.6); Mean Corpuscular HGB Conc 32.7 g/dL (30.0-36.0); Mean Corpuscular Volume 94.9 fl (80-94); Mean Platelet Volume 9.9 fL (7.4-10.4); Platelet Count 202 10^3/cmm (130-400); Red Blood Count 4.71 10^6/uL (4.1-5.3); Red Cell Distribution Width 13.3 % (12.1-15.1); White Blood Count 18.1 10^3/uL (4.0-10.0)
[2021-11-22 04:17] LABS: Alanine Aminotransferase 35 U/L (0-41); Albumin Level 4.2 g/dL (3.5-5.2); Alkaline Phosphatase 111 IU/L (40-130); Anion Gap 15.3 (5-19); Aspartate Amino Transferase 27 U/L (0-40); Blood Urea Nitrogen 33 mg/dL (8-23); Calcium 9.3 mg/dL (8.5-10.5); Carbon Dioxide 25 mmol/L (22-29); Chloride 102 mmol/L (98-107); Globulin 2.5 g/dL (1.3-4.6); Glucose 125 mg/dL (65-115); Osmolality Calculated 295 mOsm/kg (285-295); Potassium 4.3 mmol/L (3.5-5.1); Sodium 138 mmol/L (136-145); Total Bilirubin 0.6 mg/dL (0.15-1.2); Total Protein 6.7 g/dL (6.6-8.7)
[2021-11-22 04:19] LABS: INR 2.64 (0.8-1.2)
[2021-11-22 04:20] LABS: Partial Thromboplastin Time 39.7 SECONDS (23.9-36.7)
--- NOTE | 2021-11-22 05:12 | P.HP_ITS ---
Providers/Chief Complaint Primary Care Provider: Autumn Pierre DO Chief Complaint: FALL History of Present Illness the patient is a 81-year-old male who presents with chief [place] of left hip pain. He indicates that he was driving a 4 vaughan and he knows that if she was untied. He placed his foot up on the running board of the 4 vaughan to tie his shoe lost his balance and fell on his left side. He denies head trauma or loss of consciousness. He offers no other complaints at this time. He presents for further evaluation Review of Systems General: Reports: 10 or more systems reviewed and unremarkable except in HPI and below Medications/Allergies Home Medications Medication Instructions Recorded Confirmed Last Taken Type vit C 250 mg-vit E 90 mg-zinc 40 1 tab PO DAILY cap 08/19/21 11/14/21 Unknown History mg-copper 1 [id number] capsule (PreserVision AREDS-2) albuterol sulfate 90 mcg/actuation 1 puff INHALATION QID PRN 10/26/21 11/14/21 Unknown History aerosol inhaler amiodarone 200 mg tablet 200 mg PO BEDTIME 10/26/21 11/14/21 10/25/21 History atorvastatin 20 mg tablet (Lipitor) 20 mg PO BEDTIME 10/26/21 11/14/21 10/25/21 History fluticasone 500 mcg-salmeterol 50 1 inh INHALATION BID 10/26/21 11/14/21 Unknown History mcg/dose blistr powdr for inhalation (Advair Diskus) linagliptin 5 mg tablet (Tradjenta) 5 mg PO BEDTIME 10/26/21 11/14/21 10/25/21 History ondansetron HCl 4 mg tablet 4 mg PO Q6H PRN #20 tab 10/26/21 11/14/21 Unknown Rx umeclidinium 62.5 mcg/actuation 1 inh INHALATION DAILY 10/26/21 11/14/21 Unknown History blister powder for inhalation (Incruse Ellipta) warfarin 3 mg tablet See Rx Instructions .ROUTE .COMPLEX 10/26/21 11/17/21 10/25/21 History hydrochlorothiazide 25 mg tablet 25 mg PO QAM #90 tab 11/14/21 Unknown Rx ipratropium 0.5 mg-albuterol 3 mg 3 ml INHALATION Q6H PRN 11/14/21 11/14/21 Unknown History (2.5 mg base)/3 mL nebulization soln warfarin 2 mg tablet 2 mg PO DAILY tab 11/14/21 11/17/21 Unknown History citalopram 20 mg tablet 20 mg PO QAM #90 tab 11/17/21 Unknown Rx Allergies Allergy/AdvReac Type Severity Reaction Status Date / Time No Known Allergies Allergy Verified 11/14/21 11:22 PFSH Acute PFSH: Medical History Atopic dermatitis, unspecified CAP (community acquired pneumonia) CKD (chronic kidney disease) COPD (chronic obstructive pulmonary disease) Dyslipidemia Edema leg Essential (primary) hypertension GERD (gastroesophageal reflux disease) Gout, unspecified Long-term (current) use of anticoagulants, INR goal 2.0-3.0 Lymphocytosis Orthopnea Pain in left finger(s) Pain in right knee Type 2 diabetes mellitus without complications Unspecified atrial fibrillation Surgical History History of cholecystectomy History of prostate surgery History of total knee replacement Family History Other Cancer Social History Smoking and tobacco status: former smoker Quit status (tobacco): has quit using tobacco Year quit tobacco: 2009 - 1PPD x 50 Years Second hand smoke exposure: No Alcohol intake: current Lives independently: Yes Household members: spouse Marital status: Current occupational status: retired History of recent travel: No Current gender identity: Male Vitals/I&O/Wt Last Vital Signs Temp 98.5 F 11/21/21 22:28 Pulse 78 11/21/21 23:59 Resp 19 H 11/22/21 03:50 BP 189/81 11/21/21 23:59 Pulse Ox 96 11/22/21 03:50 Weight last 48 hrs Weight 81.647 kg Physical Exam Narrative: General: -Alert -No acute distress -No dyspnea -No tachypnea Head: -Atraumatic -Normocephalic Eyes: -Pupils equally round and reactive to light and accommodation -Extraocular muscles intact Neurological: -Cranial nerves II-XII intact Neck: -No jugular venous distention -No thyromegaly -No cervical lymphadenopathy Heart: -Regular rate -Regular rhythm -No murmurs -No gallops -No rubs Lungs: -No wheeze -No rhonchi -No rales ? Abdomen: -Normal bowel sounds in all four quadrants -No rebound -No guarding -No tenderness Extremities: -2/4 pulse in all four extremities -No clubbing -No cyanosis -No edema -No calf tenderness present bilaterally -Negative Carlyle?s sign bilaterally Musculoskeletal: -5/5 bilateral upper extremity strength -5/5 bilateral lower extremity strength -Sensorium of bilateral upper extremities are equal and intact -Sensorium of bilateral lower extremities are equal and intact ? Additional Details / Additional Findings / Exceptions / Miscellaneous: Data : 11/22/21 03:40 11/22/21 03:40 A&P Assessment and plan (1) Closed fracture of left hip: Status: Acute Plan left impacted femoral neck fracture. She by orthopedic surgery pending. Chest x-ray?portable pending. EKG pending. PTT pending. Nothing by mouth. IV normal sinus 75 ML's per hour. Urine analgesia. From a risk stratification standpoint, from a cardiac standpoint, the patient has known history atrial fibrillation for which she is currently being anticoagulated with an elevated INR of 2.64. He denies a history of myocardial infarction, cardiac stenting, CHF. From pulmonary standpoint, the patient has known history of COPD for which she is O2 dependent 2 L for his former smoking history. The patient denies a history of bleeding diathesis however he is on Coumadin for anticoagulation. He denies a history of adverse reaction to anesthesia. Given the after mentioned factors, the patient is great is moderate risk for surgical intervention however there appears to be no contraindications to proceeding however we will need to await the results of the after mentioned test to verify this History of vitamin D deficiency Hyperparathyroidism Chronic leukocytosis, uncertain etiology Chronic kidney disease, baseline creatinine of approximate 1.5. Will monitor creatinine intermittently. IV normal saline at 75 ML's per hour Atrial for ablation Depression COPD, O2 dependent 2 L Diabetes. Will check fasting glucose every before meals and at bedtime and provide insulin sliding scale GERD Hyper lipemia Hypertension Gout DVT Proflex is. Bilateral SCD Attestations Medical Necessity Statement*: the patient's anticipate length of stay is greater than 2 midnights for treatment of his left hip fracture Coding Level of Care Code Acute Wastewater Treatment Operator for Clarig Fwd Diagnoses Closed fracture of left hip S72.002A
[2021-11-22 05:58] LABS: Total Cells Counted 100 (0-100)
[2021-11-22 05:59] LABS: Absolute Segmented Neutrophil 9.6 10/cmm (1.6-7.1); Segmented Neutrophils 53 %
[2021-11-22 06:00] LABS: Absolute Eosinophils 0.1 10^3/cmm (0.0-0.7); Eosinophils 1 %; Lymphocytes 36 %; Lymphocytes Absolute 7.6 10^3/cmm (1.2-3.4); Monocytes Absolute 0.7 10^3/cmm (0.1-0.6)
[2021-11-22 06:01] LABS: Absolute Neutrophil 9.6 10^3/cmm (1.4-6.5); Platelet Estimate Normal (Normal)
[2021-11-22 06:02] LABS: Pathology Refferal Yes; Smudge Cells 1+
--- NOTE | 2021-11-22 06:09 | XR_ITS ---
WS: [id number] PORTABLE CHEST HISTORY: preop COMPARISON: 10/26/2021 Mild pulmonary hyperinflation from emphysema. No mass or nodule. No pneumonia. No pleural effusion or pneumothorax. Cardiac size: Normal. Mediastinum/Aorta: Normal mediastinum. Prior anterior cervical fusion. XR/XR chest 1V portable [id number] IMPRESSION: Chronic emphysema. No acute cardiopulmonary disease.
--- NOTE | 2021-11-22 06:09 | ECG_ITS ---
[facility] Test Date: 2021-11-22 Pat Name: Jesús Cole Department: Room: 278 Gender: Male Senior Advisory: : 1940 Requested By: Anila Weber Order Number: [id number] Gloria MD: Cameron Lopez M.D. Measurements Intervals [place] Rate: 61 P: 82 FL: 157 QRS: 0 QRSD: 93 T: 72 QT: 331 QTc: 336 Interpretive Statements SINUS RHYTHM POSSIBLE LEFT ATRIAL ENLARGEMENT [-0.1mV P-WAVE IN V1/V2] INCOMPLETE RIGHT BUNDLE BRANCH BLOCK [90+ ms QRS DURATION, TERMINAL R IN V1/V2, 40+ ms S IN I/aVL/V4/V5/V6] NONSPECIFIC T-WAVE ABNORMALITY Compared to ECG 10/26/2021 09:56:46 Incomplete right bundle-branch block now present T-wave abnormality now present ST (T wave) deviation no longer present Electronically Signed On 11-22-2021 17:16:40 CDT by Cameron Lopez M.D. [email or web address]
[2021-11-22] MEDS: sodium chloride 0.9% 1,000 ML 75 ML IV ×2 (07:49→20:21)
[2021-11-22] MEDS: phytonadione (ADULT) 10 MG in sodium chloride 0.9% 50 ML 153 MG IV (08:12)
--- NOTE | 2021-11-22 10:18 | P.CONIM_ITS ---
Providers/Reason For Consult Consulting Physician/Specialty*: Judi Bennett MD Reason for Consult*: Left Hip Fracture Requesting Physician: Dr. Finesse Mckeon Attending Physician: Patsy Christopher MD Primary Care Provider: Autumn Pierre DO History of Present Illness History of Present Illness Jesús Cole is a 81 year old male who presented to the emergency department late last evening. The patient was ready to get onto his tractor when he noticed that his shoe was untied. He bent over to tie his shoe and fell forward landing on his left side. Primarily, he landed on his hip and was unable to weight-bear from that period of time. His got him to the house, and they called EMS to bring him to the emergency room. Upon presentation to the emergency department, the patient was found to have a displaced subcapital left hip fracture. He was unable to weight-bear and was admitted for definitive care. He has pain with any movement of the leg. Today, he is seen prior to his surgery. Benefits and risks of each appropriate intervention are discussed including cannulated screws versus bipolar hip arthroplasty. The patient, his family, and I agree that bipolar hip arthroplasty is the best option for him. Review of Systems General: Reports: 10 or more systems reviewed and unremarkable except in HPI and below Const: Denies: fever(s), chills or fatigue Eyes: Denies: change in vision or eye discomfort ENMT: Denies: throat pain, odynophagia, nasal discharge or nasal congestion Card: Denies: chest pain, palpitations, edema, swelling of feet/ankles, dyspnea on exertion or orthopnea Resp: Denies: dyspnea, productive cough or non-productive cough GI: Denies: abdominal pain, nausea, vomiting, diarrhea, constipation or hematochezia : Denies: flank pain, difficulty urinating, dysuria or hematuria Musc: Reports: extremity pain (Left hip pain) and limited range of motion (Left hip); Denies: neck pain, back pain or extremity swelling Skin/Breast: Denies: rash or new lesions Neuro: Denies: headache(s), numbness in extremities or weakness in extremities Medications/Allergies Home Medications Medication Instructions Recorded Confirmed Last Taken Type vit C 250 mg-vit E 90 mg-zinc 40 1 tab PO DAILY cap 08/19/21 11/22/21 Unknown History mg-copper 1 [id number] capsule (PreserVision AREDS-2) albuterol sulfate 90 mcg/actuation 2 puff INHALATION Q4H PRN 10/26/21 11/22/21 Unknown History aerosol inhaler amiodarone 200 mg tablet 200 mg PO BEDTIME 10/26/21 11/22/21 10/25/21 History atorvastatin 20 mg tablet (Lipitor) 20 mg PO BEDTIME 10/26/21 11/22/21 10/25/21 History fluticasone 500 mcg-salmeterol 50 1 inh INHALATION BID 10/26/21 11/22/21 Unknown History mcg/dose blistr powdr for inhalation (Advair Diskus) linagliptin 5 mg tablet (Tradjenta) 5 mg PO BEDTIME 10/26/21 11/22/21 10/25/21 History ondansetron HCl 4 mg tablet 4 mg PO Q6H PRN #20 tab 10/26/21 11/22/21 Unknown Rx umeclidinium 62.5 mcg/actuation 1 inh INHALATION DAILY 10/26/21 11/22/21 Unknown History blister powder for inhalation (Incruse Ellipta) warfarin 3 mg tablet See Rx Instructions .ROUTE .COMPLEX 10/26/21 11/22/21 History hydrochlorothiazide 25 mg tablet 25 mg PO QAM #90 tab 11/14/21 11/22/21 Unknown Rx ipratropium 0.5 mg-albuterol 3 mg 3 ml INHALATION Q6H PRN 11/14/21 11/22/21 Unknown History (2.5 mg base)/3 mL nebulization soln citalopram 20 mg tablet 20 mg PO QAM #90 tab 11/17/21 11/22/21 Unknown Rx allopurinol 300 mg tablet 150 mg PO QAM 11/22/21 11/22/21 Unknown History metoprolol tartrate 25 mg tablet 25 mg PO DAILY PRN 11/22/21 11/22/21 Unknown History tamsulosin 0.4 mg capsule 0.4 mg PO BEDTIME 11/22/21 11/22/21 Unknown History warfarin 2 mg tablet 2 mg PO DAILY #90 tab 11/22/21 11/22/21 Unknown Rx Allergies Allergy/AdvReac Type Severity Reaction Status Date / Time No Known Allergies Allergy Verified 05/17/22 09:38 Current Medications Generic Name Dose Route Start Last Admin Trade Name Freq PRN Reason Stop Dose Admin Sodium Chloride 1,000 mls @ 75 mls/hr 11/22/21 06:09 11/22/21 07:49 Sodium Chloride 0.9% IV 75 mls/hr .[id number] MARCOS Administration Insulin Human Lispro 0 unit 11/22/21 08:00 11/22/21 08:15 Insulin Lispro 100 Unit/1 Ml SUBCUT Not Given WM&BEDTIME MARCOS Protocol Ondansetron HCl 4 mg 11/22/21 06:09 11/22/21 07:48 Ondansetron 2 Mg/Ml Sdv 2 Ml IVP 4 mg Q8H PRN Administration vomiting, or N/V if npo PFSH Acute PFSH: Medical History Atopic dermatitis, unspecified CAP (community acquired pneumonia) CKD (chronic kidney disease) COPD (chronic obstructive pulmonary disease) Dyslipidemia Edema leg Essential (primary) hypertension GERD (gastroesophageal reflux disease) Gout, unspecified Long-term (current) use of anticoagulants, INR goal 2.0-3.0 Lymphocytosis Orthopnea Pain in left finger(s) Pain in right knee Type 2 diabetes mellitus without complications Unspecified atrial fibrillation Surgical History History of cholecystectomy History of prostate surgery History of total knee replacement Family History Other Cancer Social History Smoking and tobacco status: former smoker Quit status (tobacco): has quit using tobacco Year quit tobacco: 2009 - 1PPD x 50 Years Second hand smoke exposure: No Alcohol intake: current Lives independently: Yes Household members: spouse Marital status: Current occupational status: retired History of recent travel: No Current gender identity: Male Dietary Habits: Current diet type/program: regular Caffeine: Yes Caffeine intake frequency: coffee Vitals/I&O/Wt Last Vital Signs Temp 98.1 F 11/22/21 10:05 Pulse 64 11/22/21 10:05 Resp 18 11/22/21 10:05 BP 158/71 11/22/21 10:05 Pulse Ox 90 05/17/22 08:00 11/21/21 11/22/21 11/22/21 22:59 06:59 14:59 Intake Total 0 / 0 Balance 0 / 0 Weight last 48 hrs Weight 188 lb Weight 180 lb Physical Exam Const: COMMON NORMALS: no acute distress, average body habitus, patient oriented x3 and alert GENERAL APPEARANCE: cooperative and comfortable ORIENTATION/CONSCIOUSNESS: Yes awake HENMT: COMMON NORMALS: normocephalic and atraumatic HEAD & SCALP: normocephalic and atraumatic Eye: GENERAL EYE: appearance normal, both eyes and all related structures Chest: COMMONS NORMALS: normal inspection of the chest Resp: COMMON NORMALS: normal respiratory effort EFFORT & INSPECTION: Yes able to speak in complete sentences and Yes symmetric chest movement Extremity: NARRATIVE EXTREMITY EXAM: Patient denies other lower extremity injury, but he does complain of pain in his right knee as well as pain in his left fingers. LEFT LOWER EXTREMITY: Yes hip joint (The leg is externally rotated.) Left hip: Yes inspection (No evidence of bruising.), Yes palpation (Minimal tenderness about the hip.), Yes ROM (Painful to any range of motion.) and Yes neurovascular exam (Intact distally.) Neuro: COMMON NORMALS: patient oriented x3 SENSORIUM/ORIENTATION: Yes alert Psych: COMMON NORMALS: mental status grossly normal APPEARANCE: Yes grossly normal ATTITUDE: Yes calm and Yes engaged ATTENTION/CONCENTRATION: Yes attention grossly intact Skin: COMMON NORMALS: no rashes or lesions noted GENERAL SKIN EXAM: no rashes or lesions noted Data : 11/22/21 03:40 11/22/21 03:40 Xray Ortho: My impression: I have personally reviewed imaging of the patient's left hip. Plain film demonstrates there is a subcapital hip fracture, and the lateral demonstrates significant angulation. This is difficult to see secondary to the patient's body habitus. AP demonstrates what appears to be impaction of the fracture. Other CT: My impression: My personal review of the patient's hip CT demonstrates angulation of the fracture significant enough that I do not feel cannulated screws of the vinny ropriate treatment. There is angulation with opening anteriorly and inferiorly. There is no evidence of other abnormality than the subcapital hip fracture. A&P Assessment and plan (1) Subcapital fracture of left hip: This 81-year-old gentleman was in his usual state of health when he realized his shoe was untied. His plan was to get onto his tractor, but he put his foot up on the tractor to tie his shoe at which point he fell forward and landed on his left side. This resulted in a subcapital hip fracture which is angulated. He presented to the emergency department unable to ambulate. Imaging studies including plain film and CT demonstrated the angulation at the fracture site. Discussion was had with the patient and his family regarding the benefits of bipolar hip replacement over cannulated screws. We all agree that that was the direction to go and consents were signed. Questions were further answered. The patient understood the increased risk of dislocation and infection, but agreed with the plan. The patient is chronically on Coumadin, but he was able to be appropriately reversed with a normalized INR to allow us to proceed with the surgery. Status: Acute Qualifiers: Encounter type: initial encounter Fracture type: closed Qualified Code(s): S72.012A - Unspecified intracapsular fracture of left femur, initial encounter for closed fracture Consult Attestations Medical Necessity Statement: Patient requires inpatient status for treatment of subcapital left hip fracture. Coding Level of Care Code Acute [facility] for [facility] Fwd Exam Comprehensive Diagnoses Subcapital fracture of left hip S72.012A Encounter type: initial encounter Fracture type: closed
[2021-11-22] MEDS: morphine 4 mg/mL SDV 1 mL 2 MG IVP (10:44)
[2021-11-22 11:05] LABS: INR 1.66 (0.8-1.2)
[2021-11-22 11:57] LABS: Glucose Point of Care 101 mg/dL (70-110)
--- NOTE | 2021-11-22 12:33 | PM.MISC ---
Miscellaneous Note Note: INR has been reversed with vitamin K and FFP I have talked with Dr. Vizcarra as well who is planning to take him to the OR for hip intervention Patient is not complaining after pain Very pleasant and cooperative Laying supine No active pain No signs of vascular compromise of lower extremities Abdomen soft however distended S1, S2 variable EOMI, PERRLA INR has been reversed, After his surgery he does not need bridging therapy, We can start anticoagulating agent 6 to 8 hours after the surgery N.p.o. We will follow-up with Dr. Vizcarra Plan is to take him to the OR for surgical intervention
[2021-11-22] MEDS: sodium chloride 0.9% 1,000 ML 30 ML IV (13:05)
--- NOTE | 2021-11-22 13:22 | ANES.PREANE2 ---
Pre-Anesthetic Assessment Height/Weight: Height 1.78 m Weight 85.275 kg Temp Pulse Resp BP Pulse Ox 98.7 F 69 17 175/83 94 11/22/21 12:55 11/22/21 12:55 11/22/21 12:55 11/22/21 12:55 11/22/21 12:55 Preop Diagnosis: Left subcapital hip fracture Operation Date: 11/22/21 13:25 Proposed Procedures p Hemiarthroplasty Hip(Left) - Judi Bennett MD Familial anesthetic complications: PONV Was Beta Austin taken within 24 hours: Yes Was Clonidine taken within 24 hours: N/A Social No alcohol and No tobacco (h/o smoking) Exam alert, oriented x 3 and clear to auscultation bilaterally Airway Submandibular: within normal limits Cervical ROM: within normal limits Mallampati: Class II Pulmonary Chronic Obstructive Pulmonary Disease CV/HEM Atrial Fibrillation and Hypertension Chronic Renal Insufficiency GI Gastroesophageal Reflux Disease Anesthetic Plan ASA status: 3 Anesthesia: General Medications/Allergies Home Medications Medication Instructions Recorded Confirmed Last Taken Type vit C 250 mg-vit E 90 mg-zinc 40 1 tab PO DAILY cap 08/19/21 11/22/21 Unknown History mg-copper 1 [id number] capsule (PreserVision AREDS-2) albuterol sulfate 90 mcg/actuation 2 puff INHALATION Q4H PRN 10/26/21 11/22/21 Unknown History aerosol inhaler amiodarone 200 mg tablet 200 mg PO BEDTIME 10/26/21 11/22/21 10/25/21 History atorvastatin 20 mg tablet (Lipitor) 20 mg PO BEDTIME 10/26/21 11/22/21 10/25/21 History fluticasone 500 mcg-salmeterol 50 1 inh INHALATION BID 10/26/21 11/22/21 Unknown History mcg/dose blistr powdr for inhalation (Advair Diskus) linagliptin 5 mg tablet (Tradjenta) 5 mg PO BEDTIME 10/26/21 11/22/21 10/25/21 History ondansetron HCl 4 mg tablet 4 mg PO Q6H PRN #20 tab 10/26/21 11/22/21 Unknown Rx umeclidinium 62.5 mcg/actuation 1 inh INHALATION DAILY 10/26/21 11/22/21 Unknown History blister powder for inhalation (Incruse Ellipta) warfarin 3 mg tablet See Rx Instructions .ROUTE .COMPLEX 10/26/21 11/22/21 10/25/21 History hydrochlorothiazide 25 mg tablet 25 mg PO QAM #90 tab 11/14/21 11/22/21 Unknown Rx ipratropium 0.5 mg-albuterol 3 mg 3 ml INHALATION Q6H PRN 11/14/21 11/22/21 Unknown History (2.5 mg base)/3 mL nebulization soln citalopram 20 mg tablet 20 mg PO QAM #90 tab 11/17/21 11/22/21 Unknown Rx allopurinol 300 mg tablet 150 mg PO QAM 11/22/21 11/22/21 Unknown History metoprolol tartrate 25 mg tablet 25 mg PO DAILY PRN 11/22/21 11/22/21 Unknown History tamsulosin 0.4 mg capsule 0.4 mg PO BEDTIME 11/22/21 11/22/21 Unknown History Allergies Allergy/AdvReac Type Severity Reaction Status Date / Time No Known Allergies Allergy Verified 11/22/21 09:38 Current Medications Generic Name Dose Route Start Last Admin Trade Name Freq PRN Reason Stop Dose Admin Sodium Chloride 1,000 mls @ 75 mls/hr 11/22/21 06:09 11/22/21 07:49 Sodium Chloride 0.9% IV 75 mls/hr .[id number] MARCOS Administration Sodium Chloride 1,000 mls @ 30 mls/hr 11/22/21 13:00 11/22/21 13:05 Sodium Chloride 0.9% IV 11/23/21 12:59 30 mls/hr .Q24H MARCOS Administration Insulin Human Lispro 0 unit 11/22/21 08:00 11/22/21 08:15 Insulin Lispro 100 Unit/1 Ml SUBCUT Not Given WM&BEDTIME MARCOS Protocol Morphine Sulfate 2 mg 11/22/21 06:09 11/22/21 10:44 Morphine 4 Mg/Ml Sdv 1 Ml IVP 2 mg Q4H PRN Administration SEVERE PAIN Ondansetron HCl 4 mg 11/22/21 06:09 11/22/21 07:48 Ondansetron 2 Mg/Ml Sdv 2 Ml IVP 4 mg Q8H PRN Administration vomiting, or N/V if npo PFSH Anesthesia Medical History Atopic dermatitis, unspecified CAP (community acquired pneumonia) CKD (chronic kidney disease) COPD (chronic obstructive pulmonary disease) Dyslipidemia Edema leg Essential (primary) hypertension GERD (gastroesophageal reflux disease) Gout, unspecified Long-term (current) use of anticoagulants, INR goal 2.0-3.0 Lymphocytosis Orthopnea Pain in left finger(s) Pain in right knee Type 2 diabetes mellitus without complications Unspecified atrial fibrillation Surgical History History of cholecystectomy History of prostate surgery History of total knee replacement Family History Other Cancer Social History Smoking and tobacco status: former smoker Quit status (tobacco): has quit using tobacco Year quit tobacco: 2009 - 1PPD x 50 Years Second hand smoke exposure: No Alcohol intake: current Lives independently: Yes Household members: spouse Marital status: Current occupational status: retired History of recent travel: No Current gender identity: Male Data Anesthesia : 11/22/21 03:40 11/22/21 03:40 Short CBC 11/22/21 Range/Units 03:40 WBC 18.1 H (4.0-10.0) 10^3/uL Hgb 14.6 (11.7-16.6) g/dL Hct 44.7 (42.0-52.0) % MCV 94.9 H (80-94) fl Plt Count 202 (130-400) 10^3/cmm BMP 11/22/21 03:40 Sodium 138 Potassium 4.3 Chloride 102 Carbon Dioxide 25 BUN 33 H Creatinine 1.4 H Glucose 125 H Calcium 9.3 Liver Function 11/22/21 Range/Units 03:40 Total Bilirubin 0.6 (0.15-1.2) mg/dL AST 27 (0-40) U/L ALT 35 (0-41) U/L Alkaline Phosphatase 111 (40-130) IU/L Albumin 4.2 (3.5-5.2) g/dL Blood Bank 11/22/21 08:18 Blood Type O Negative Rho(D) Type Negative Coags 11/22/21 11/22/21 03:40 10:39 PT 28.50 H INR 2.64 H 1.66 H APTT 39.7 H Cardiac Studies: No Data to Display
[2021-11-22] MEDS: CELEcoxib 200 mg Capsule 400 MG PO (13:29)
[2021-11-22] MEDS: acetaminophen 1,000 MG/100 ML PIGGYBACK 400 MG IV ×2 (13:29→20:21)
[2021-11-22] MEDS: HYDROmorphone 1 mg/mL INJ 1 mL 0.5 MG IVP (14:01)
[2021-11-22] MEDS: ceFAZolin 1,000 mg SDV 1000 MG IRRIGATION (16:22)
[2021-11-22] MEDS: vancomycin 1,000 MG SDV 1000 MG XX (16:24)
--- NOTE | 2021-11-22 17:53 | XR_ITS ---
WS: [id number] Pelvis, AP portable supine, 11/22/2021, 0619 hours Clinical Data: Status post bipolar hip arthroplasty Comparison: Left hip, 11/22/2021, 2407 hours Findings: There is a left hip arthroplasty in good position. The femoral portion of the arthroplasty is within the proximal left femoral medullary canal. XR/XR pelvis 1-2V* [id number] Impression: Left hip arthroplasty.
--- NOTE | 2021-11-22 17:55 | P.OP_ITS ---
Operative Report Date of procedure: November 22, 2021 Pre-op diagnosis: Left subcapital hip fracture Post-op diagnosis: Left subcapital hip fracture Post-op findings: Subcapital hip fracture demonstrated significant comminution. There was also displacement and instability. Procedure done: Left bipolar hip arthroplasty Implants: The Karlee total hip system with the following implants: Accolade II size 6 with 127 degree neck angle hip stem with a Columbia Bipolar Head Component size 50 mm outer diameter by 28 mm with a 28 mm V40 Femoral Head with +4 mm offset Specimens removed/disposition: Femoral head, disposed of Pathology: none sent Surgeon: Judi Bennett Lead Rider[facility] Anesthesia: General (Intubated, ASA 3) Estimated blood loss (mL): 250 IV fluids (mL): 1,300 Urine output (mL): 550 Complications: None Findings: Stable at 80 degrees of flexion with 70 degrees of internal rotation and 20 degrees of adduction, toe hang and external rotation Condition: stable Disposition: PACU (Then return to floor) Brief History: Jesús Cole is a 81 year old male who presented to the emergency department late last evening. The patient was ready to get onto his tractor when he noticed that his shoe was untied.? He bent over to tie his shoe and fell forward landing on his left side.? Primarily, he landed on his hip and was unable to weight-bear from that period of time.? His got him to the house, and they called EMS to bring him to the emergency room.? Upon presentation to the emergency department, the patient was found to have a displaced subcapital left hip fracture.? He was unable to weight-bear and was admitted for definitive care.? He has pain with any movement of the leg.? Preoperatively, the patient was on Coumadin, but we were able to effectively correct his INR to an appropriate level for surgical intervention today. Benefits and risks of each appropriate intervention are discussed including cannulated screws versus bipolar hip arthroplasty.? The patient, his family, and I agree that bipolar hip arthroplasty is the best option for him. Further questions are answered, and consents were signed preoperatively. Procedure: Patient was brought to the operating theater.? He was transferred to the operating room table and subsequently administered a general anesthetic intubated, ASA 3.? Following administration of adequate anesthesia, the patient was placed in full lateral position and held in position with a pegboard.? The patient's left lower extremity was then prepped and draped in usual fashion utilizing DuraPrep.? It was draped free.? Following prepping and draping, a surgical pause was performed. At the time of surgical pause, we identified the site and side of surgery.? We also identified the patient and preoperative surgical markings.? Confirmation was made of equipment availability.? Additionally, the patient's preoperative IV antibiotic, Ancef 2 g, was confirmed as being given in a timely fashion and being the appropriate antibiotic.? He received TXA 1 g preoperatively as well 1 g postoperatively. Following the surgical pause, an incision was made centering over the patient's greater trochanter continuing proximally and distally as necessary to allow access to the hip joint.? Dissection continued through skin and soft tissues using a scalpel, and hemostasis was obtained using electrocautery. The tensor fascia pari was identified and incised longitudinally.? Sciatic nerve was identified and protected throughout the surgical procedure.? A Charnley U retractor was placed after the tensor fascia pari had been incised longitudinally, and the sciatic nerve had been identified.? The piriformis muscle was identified and tagged. Piriformis muscle along with the remaining short external rotators were then incised from the posterior aspect of the hip joint. These were retracted posteriorly. ? The capsule was entered in a T-type fashion with the edges being tagged.? Proximal femoral osteotomy was accomplished as the construct of the fracture prohibited removal of the femoral head prior to this osteotomy. The femoral head was removed and was measured.? The acetabulum was evaluated, and the labrum was partially debrided.? Loose bony fragments were removed from it the acetabulum.? Trial femoral heads were then placed into position to determine the appropriate bipolar head size.? This was determined to be a size 50 mm outer diameter. Attention was directed to the proximal femur.? The proximal femur was lifted out of the wound with difficulty.? A canal finder was passed, and we then used the reamer to lateralize.? We then began broaching. We broached sequentially and had excellent fit and fill with the size 6 Accolade II 127 degree femoral component.? A trial reduction was accomplished with a +0 mm offset femoral head with the 50 mm universal bipolar head component once the size 6 broach was placed in position.? We then increased the femoral head offset to a +4 mm. The patient was stable with this construct, and it was not felt that we had increased his leg length.? With this in place, we had the above stabilities, and at that time, we felt that we had restored leg lengths.? We also felt that we had excellent stability noted above. Therefore, trial components were removed after the hip was dislocated.? The size 6 Accolade II 127 degree neck angle hip stem was impacted into position without difficulty and onto this was placed a 50 mm bipolar universal head component with a internal femoral head size 28 mm +4 mm offset.? With this construct, we had the above-noted stability.? The stem was noted to seat nicely prior to placement of the femoral head.? The wound was copiously irrigated with Betadine.? At this time, with all components in appropriate position, the hip was reduced.? Following reduction of the prosthesis once again, we confirmed the stability of the hip.? Leg lengths were also felt to be satisfactory. Being satisfied with the prosthesis, attention was directed to closure.? Closure was accomplished with 0 Vicryl in the capsular tissues.? Piriformis was reattached with 0 Vicryl as well.? Tensor fascia pari was closed with 0 Vicryl in an interrupted fashion.? The subcutaneous tissues were closed with 1 deeper 0 Vicryl suture followed by 2-0 Monocryl.? Vancomycin powder and a Gelfoam thrombin mixture was placed into the wound as well.? The skin was closed with 3- 0 Monocryl followed by Dermabond, Prineo, and OpSite.? The patient was placed in an abduction pillow.? He was returned the Recovery Room in a satisfactory condition and will be discharged to the floor for postoperative rehabilitation and pain management.? There were no complications. Related Problem List Diagnoses (1) Subcapital fracture of left hip:
[2021-11-22] MEDS: mupirocin oint 22 gm 1 APPLIC NASAL (20:19)
[2021-11-22] MEDS: calcium carbonate 500 mg Chew Tablet 1000 MG PO (20:19)
[2021-11-22] MEDS: chlorhexidine gluconate 0.12% Btl 473 mL 30 ML MUCOUS MEM (20:20)
[2021-11-22] MEDS: sennosides-docusate Tablet 2 TAB PO (20:20)
[2021-11-22] MEDS: iron polysaccharide complex 150 mg Capsule PO (20:20)
[2021-11-22 20:36] LABS: Glucose Point of Care 128 mg/dL (70-110)
[2021-11-23] MEDS: acetaminophen 1,000 MG/100 ML PIGGYBACK 400 MG IV ×2 (03:16→12:48)
[2021-11-23 04:00] VITALS: BP 136/63; PULSE 67; RESP 18; TEMP 36.6; O2SAT 96
[2021-11-23 05:38] VITALS: PULSE 63
[2021-11-23 05:50] LABS: Basophils % 0.3 %; Eosinophils # 0.6 10^3/uL (0.0-0.8); Eosinophils % 4.1 %; Hemoglobin 12.4 g/dL (11.7-16.6); Lymphocytes # 6.7 10^3/uL (0.8-4.8); Lymphocytes % 45.5 %; Mean Corpuscular HGB Conc 31.8 g/dL (30.0-36.0); Mean Corpuscular Hemoglobin 31.4 pg (28.0-34.0); Mean Corpuscular Volume 98.7 fl (80-94); Mean Platelet Volume 9.6 fL (7.4-10.4); Monocytes # 0.9 10^3/uL (0.2-0.9); Neutrophils # 6.42 10^3/uL (1.8-7.7); Neutrophils % 43.6 %; Nucleated Red Blood Cells % 0 %; Platelet Count 146 10^3/cmm (130-400); Red Blood Count 3.95 10^6/uL (4.1-5.3); Red Cell Distribution Width 13.3 % (12.1-15.1); White Blood Count 14.7 10^3/uL (4.0-10.0)
[2021-11-23] MEDS: sodium chloride 0.9% 1,000 ML 75 ML IV (05:56)
[2021-11-23 06:16] LABS: INR 1.16 (0.8-1.2)
[2021-11-23 06:20] LABS: Glucose Point of Care 105 mg/dL (70-110)
[2021-11-23 06:24] LABS: Anion Gap 12.5 (5-19); Blood Urea Nitrogen 36 mg/dL (8-23); Carbon Dioxide 25 mmol/L (22-29); Chloride 105 mmol/L (98-107); Glucose 101 mg/dL (65-115); Osmolality Calculated 294 mOsm/kg (285-295); Potassium 4.5 mmol/L (3.5-5.1); Sodium 138 mmol/L (136-145)
[2021-11-23 06:46] LABS: Slide Review Slide Review Perform
--- NOTE | 2021-11-23 07:51 | ANE.PACU2 ---
Inpatient post-anesthesia follow up: Airway intact: Yes Vital signs: Temperature 97.9 F Pulse Rate 63 Respiratory Rate 18 Blood Pressure 136/63 Pulse Oximetry 96 Oxygen Delivery Me thod Nasal Cannula Oxygen Flow Rate 3 Fraction of Inspir ed Oxygen Hydration adequate: Yes Nausea and vomiting: No Pain level: 2 Mental status: Baseline
[2021-11-23 08:00] VITALS: BP 143/66; PULSE 66; RESP 13; TEMP 36.6; O2SAT 96
[2021-11-23] MEDS: sennosides-docusate Tablet 2 TAB PO (08:00)
[2021-11-23] MEDS: calcium carbonate 500 mg Chew Tablet 1000 MG PO (08:00)
[2021-11-23] MEDS: multivitamin therapeutic Tablet 1 TAB PO (08:00)
[2021-11-23] MEDS: cholecalciferol (vitamin D3) 1,000 unit Tablet 1000 UNIT PO (08:00)
[2021-11-23] MEDS: iron polysaccharide complex 150 mg Capsule PO (08:00)
[2021-11-23] MEDS: CELEcoxib 200 mg Capsule PO (08:01)
[2021-11-23] MEDS: mupirocin oint 22 gm 1 APPLIC NASAL (08:01)
[2021-11-23 09:20] VITALS: PULSE 70; RESP 16; O2SAT 95
[2021-11-23] MEDS: HYDROcodone-acetaminophen 5-325 mg Tablet 1 TAB PO (09:36)
--- NOTE | 2021-11-23 11:08 | PC.CHAP ---
Pastoral Care Encounter/Spiritual Assessment Type of Contact [] Declined internal audit consultant visit [] Patient/Family/Request visit [] Outpatient visit [] Follow-up visit [] Physician referral [] Code/Alert [x] Routine visit [] Staff referral [] Actively dying [] Patient sleeping [] Family support [] [] Out of room [] Palliative care [] [] Receiving care in room [] Pre-surgical visit [] Trauma [] Long length of stay [] ICU visit [] Other: Relational/Emotional Strength x[] Patient feels connected with others/family/visitors/staff [] Distress [] Loneliness/isolation [] Abandonment Spirituality of Patient [x] Person of Shefali [] Attends Jehovah'S Witness of their Shefali [x] Believes in Prayer [] Reads Bible or Zoroastrianism materials [] There are Spiritual issues to be addressed Lead Network Engineer Interventions [x] Prayer [x] Active listening [] Non-anxious presence [] Spiritual/emotional support [] Crisis/trauma care [] Spiritual counseling [] Bereavement support [] Provided bereavement packet [] Provided Bible/devotional materials [] Provided toy/stuffed animal, coloring book to patient or family member [] Provided Communion [] Anointing/[place]ts [] Salvation [x] Completed spiritual assessment [] Other: Impact on Illness or Injury [] Angry [] Fearful [] Anxious [] Often cries [] Exhaustion [] Unable to work [] Unable to attend methodist [] Unable to walk/stand [] Unable to read [] Unable to drive [] Unable to eat/drink [] Unable to sleep [] Unable to be with family [] Patient intubated [] Other: Summary Time spent with patient
[2021-11-23 11:12] VITALS: BP 147/55; PULSE 76; RESP 12; TEMP 35.3; O2SAT 95
--- NOTE | 2021-11-23 11:15 | PM.DCS ---
Discharge Providers Date of Admission: 11/22/21 04:48 Date of Discharge: November 23, 2021 Attending Provider at Admission: Anila Weber DO Attending Provider at Discharge: Patsy Christopher MD Primary Care Provider: Autumn Pierre DO Diagnoses at Discharge Discharge Diagnosis (1) Subcapital fracture of left hip: Status: Acute Qualifiers: Encounter type: initial encounter Fracture type: closed Qualified Code(s): S72.012A - Unspecified intracapsular fracture of left femur, initial encounter for closed fracture Reason for Visit Reason for Visit: FALL Hospital Course Hospital Course Jesús Cole is a 81 year old male who presented to the emergency department late last evening. The patient was ready to get onto his tractor when he noticed that his shoe was untied.? He bent over to tie his shoe and fell forward landing on his left side.? Primarily, he landed on his hip and was unable to weight-bear from that period of time.? His got him to the house, and they called EMS to bring him to the emergency room.? Upon presentation to the emergency department, the patient was found to have a displaced subcapital left hip fracture.? He was unable to weight-bear and was admitted for definitive care. Preoperatively his INR was reversed with use of vitamin K and FFP. Dr. 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 fib, he can continue his Coumadin check INR at home, he can be safely discharged from the hospital, for his DVT prophylaxis continue Coumadin Will prescribe opioids and bowel regimen Patient and family refused SNF. Physical Exam Narrative: Patient is not complaining of pain Very pleasant and cooperative Laying supine No active pain No signs of vascular compromise of lower extremities Abdomen soft however distended S1, S2 variable EOMI, PERRLA Currently on 2 L of oxygen which is his home requirement Family at the bedside Urinary Catheter Management: Yu: Cath Placed During This Visit: yes, but has since been removed by the nurse Reason for Continuing Indwelling Catheter: Perioperative Use in Selected Surgeries Urinary Catheter Date of Insertion: 11/22/21 Urinary Catheter Time of Insertion: 15:45 Date Urinary Catheter Removed: 11/23/21 Time Urinary Catheter Discontinued: 05:38 Discharge Data Studies Completed and Pending Completed Studies During Hospitalization Category Date Time Status CT hip LT wo con* [id number] Urgent Cat Scan 11/22/21 01:43 Completed XR chest 1V portable [id number] Routine Exams 11/22/21 06:09 Completed XR hip LT 2-3V wo/w pel* [id number] Stat Exams 11/21/21 23:42 Completed XR pelvis 1-2V* [id number] Urgent Exams 11/22/21 17:53 Completed Pending at discharge Category Date Time Status Drug Screen, Urine Stat Lab 11/22/21 05:12 Uncollected Prothrombin Time INR AM LABS Lab 11/24/21 04:00 Ordered Prothrombin Time INR AM LABS Lab 11/25/21 04:00 Ordered Prothrombin Time INR AM LABS Lab 11/26/21 04:00 Ordered Radiology Impressions Hip/Pelvis X-Ray 11/21/21 23:42 IMPRESSION: Possible impacted femoral neck fracture. Correlation with CT may be helpful. Hip CT 11/22/21 01:43 IMPRESSION: 1. Acute impacted left femoral neck fracture with impaction laterally and posteriorly and some distraction medially and anteriorly. 2. Anterior and medial angulation of the impacted femoral neck fracture. Chest X-Ray 11/22/21 06:09 IMPRESSION: Chronic emphysema. No acute cardiopulmonary disease. Pelvis X-Ray 11/22/21 17:53 Impression: Left hip arthroplasty. Laboratory Results WBC 14.7 10^3/uL (4.0-10.0) H 11/23/21 05:32 RBC 3.95 10^6/uL (4.1-5.3) L 11/23/21 05:32 Hgb 12.4 g/dL (11.7-16.6) 11/23/21 05:32 Hct 39.0 % (42.0-52.0) L 11/23/21 05:32 MCV 98.7 fl (80-94) H 11/23/21 05:32 MCH 31.4 pg (28.0-34.0) 11/23/21 05:32 MCHC 31.8 g/dL (30.0-36.0) 11/23/21 05:32 RDW 13.3 % (12.1-15.1) 11/23/21 05:32 Plt Count 146 10^3/cmm (130-400) 11/23/21 05:32 MPV 9.6 fL (7.4-10.4) 11/23/21 05:32 Neut % (Auto) 43.6 % 11/23/21 05:32 Lymph % (Auto) 45.5 % 11/23/21 05:32 [place] % (Auto) 6.0 % 11/23/21 05:32 Eos % (Auto) 4.1 % 11/23/21 05:32 Baso % (Auto) 0.3 % 11/23/21 05:32 Neut # (Auto) 6.42 10^3/uL (1.8-7.7) 11/23/21 05:32 Lymph # (Auto) 6.7 10^3/uL (0.8-4.8) H 11/23/21 05:32 [place] # (Auto) 0.9 10^3/uL (0.2-0.9) 11/23/21 05:32 Eos # (Auto) 0.6 10^3/uL (0.0-0.8) 11/23/21 05:32 Baso # (Auto) 0.0 10^3/uL (0.0-0.1) 11/23/21 05:32 Nucleated RBC % (auto) 0 % 11/23/21 05:32 Total Counted 100 (0-100) 11/22/21 03:40 Atypical Lymphs % 6.0 % (0-5) H 11/22/21 03:40 Absolute Neutrophils 9.6 10^3/cmm (1.4-6.5) H 11/22/21 03:40 Segmented Neutrophils 53 % 11/22/21 03:40 Abs Segm Neuts (Man) 9.6 10/cmm (1.6-7.1) H 11/22/21 03:40 Band Neutrophils 0.0 % 11/22/21 03:40 Abs Band Neuts (Man) 0.0 10^3/cmm (0.0-1.2) 11/22/21 03:40 Absolute Lymphocytes 7.6 10^3/cmm (1.2-3.4) H 11/22/21 03:40 Lymphocytes (Manual) 36 % 11/22/21 03:40 Monocytes (Manual) 4.0 % 11/22/21 03:40 Absolute Monocytes 0.7 10^3/cmm (0.1-0.6) H 11/22/21 03:40 Eosinophils (Manual) 1 % 11/22/21 03:40 Absolute Eosinophils 0.1 10^3/cmm (0.0-0.7) 11/22/21 03:40 Basophils (Manual) 0.0 % 11/22/21 03:40 Absolute Basophils 0.0 10^3/cmm (0.0-0.2) 11/22/21 03:40 Nucleated RBCs # 0.0 /100WBC 11/23/21 05:32 Pathologist Review Yes 11/22/21 03:40 Smudge Cells 1+ H 11/22/21 03:40 Platelet Estimate Normal (Normal) 11/22/21 03:40 PT 15.10 SECONDS (12.1-14.9) H 11/23/21 05:32 INR 1.16 (0.8-1.2) 11/23/21 05:32 APTT 39.7 SECONDS (23.9-36.7) H 11/22/21 03:40 Sodium 138 mmol/L (136-145) 11/23/21 05:32 Potassium 4.5 mmol/L (3.5-5.1) 11/23/21 05:32 Chloride 105 mmol/L (98-107) 11/23/21 05:32 Carbon Dioxide 25 mmol/L (22-29) 11/23/21 05:32 Anion Gap 12.5 (5-19) 11/23/21 05:32 BUN 36 mg/dL (8-23) H 11/23/21 05:32 Creatinine 1.6 mg/dL (0.7-1.2) H 11/23/21 05:32 GFR Calculation Not Reportable 11/23/21 05:32 Glucose 101 mg/dL (65-115) 11/23/21 05:32 POC Glucose 105 mg/dL (70-110) 11/23/21 06:14 Calculated Osmolality 294 mOsm/kg (285-295) 11/23/21 05:32 Calcium 8.0 mg/dL (8.5-10.5) L 11/23/21 05:32 Total Bilirubin 0.6 mg/dL (0.15-1.2) 11/22/21 03:40 AST 27 U/L (0-40) 11/22/21 03:40 ALT 35 U/L (0-41) 11/22/21 03:40 Alkaline Phosphatase 111 IU/L (40-130) 11/22/21 03:40 Total Protein 6.7 g/dL (6.6-8.7) 11/22/21 03:40 Albumin 4.2 g/dL (3.5-5.2) 11/22/21 03:40 Globulin 2.5 g/dL (1.3-4.6) 11/22/21 03:40 Blood Type O Negative 11/22/21 08:18 Rho(D) Type Negative 11/22/21 08:18 Vitals Last Vital Signs Temp 95.6 F L 11/23/21 11:12 Pulse 76 11/23/21 11:12 Resp 12 11/23/21 11:12 BP 147/55 11/23/21 11:12 Pulse Ox 95 11/23/21 11:12 Discharge Plan Discharge Patient Disposition: Home Condition: Stable Prescriptions: New oxycodone 10 mg tablet 10 mg PO Q8H Qty: 20 0RF Senna-S 8.6-50 mg tablet 1 tab-cap PO BID Qty: 60 0RF Continued PreserVision AREDS-2 250-90-40-1 mg capsule 1 tab PO DAILY 0RF ipratropium-albuterol 0.5 mg-3 mg(2.5 mg base)/3 mL solution for nebulization 3 ml inhalation Q6H PRN (Reason: Shortness Of Breath) 0RF warfarin 2 mg tablet 2 mg PO DAILY Qty: 90 2RF Protocol: Dose Management Condition: Sunday Dose/Route: 3 mg Instruction: 1 x 3 mg tablet Condition: Sunday Dose/Route: 2 mg Instruction: 1 x 2 mg tablet Condition: Sunday Dose/Route: 3 mg Instruction: 1 x 3 mg tablet Condition: Sunday Dose/Route: 2 mg Instruction: 1 x 2 mg tablet Condition: Dose/Route: 3 mg Instruction: 1 x 3 mg tablet Condition: Sunday Dose/Route: 2 mg Instruction: 1 x 2 mg tablet Condition: Sunday Dose/Route: 3 mg Instruction: 1 x 3 mg tablet Protocol Text: Adjustment Start Date: Sunday11/22/21 INR Value: 19.90 SECONDS INR Date: 11/22/21 Recheck Date: 11/29/21 hydrochlorothiazide 25 mg tablet 25 mg PO QAM Qty: 90 0RF citalopram 20 mg tablet 20 mg PO QAM Qty: 90 1RF atorvastatin [Lipitor] 20 mg tablet 20 mg PO BEDTIME 0RF amiodarone 200 mg tablet 200 mg PO BEDTIME 0RF fluticasone propion-salmeterol [Advair Diskus] 500-50 mcg/dose blister with device 1 inh inhalation BID 0RF Rx Instructions: 340 B albuterol sulfate 90 mcg/actuation HFA aerosol inhaler 2 puff inhalation Q4H PRN (Reason: Shortness Of Breath) 0RF Tradjenta 5 mg tablet 5 mg PO BEDTIME 0RF Incruse Ellipta 62.5 mcg/actuation blister with device 1 inh inhalation DAILY 0RF warfarin 3 mg tablet See Rx Instructions mg .ROUTE .COMPLEX 0RF Protocol: Dose Management Condition: Sunday Dose/Route: 3 mg Instruction: 1 x 3 mg tablet Condition: Sunday Dose/Route: 2 mg Instruction: 1 x 2 mg tablet Condition: Sunday Dose/Route: 3 mg Instruction: 1 x 3 mg tablet Condition: Sunday Dose/Route: 2 mg Instruction: 1 x 2 mg tablet Condition: Dose/Route: 3 mg Instruction: 1 x 3 mg tablet Condition: Sunday Dose/Route: 2 mg Instruction: 1 x 2 mg tablet Condition: Sunday Dose/Route: 3 mg Instruction: 1 x 3 mg tablet Protocol Text: Adjustment Start Date: Sunday11/22/21 INR Value: 19.90 SECONDS INR Date: 11/22/21 Recheck Date: 11/29/21 Rx Instructions: 2mg po qam on sun,sun, and sun and 3mg po on sun,,,and sun ondansetron HCl 4 mg tablet 4 mg PO Q6H PRN (Reason: nausea and vomiting) Qty: 20 0RF tamsulosin 0.4 mg capsule 0.4 mg PO BEDTIME 0RF allopurinol 300 mg tablet 150 mg PO QAM 0RF metoprolol tartrate 25 mg tablet 25 mg PO DAILY PRN (Reason: heartrate) 0RF Discharge Orders: Discharge Order (Routine); Ordered 11/23/21 Ordered By: Patsy Christopher Other Ambulatory Orders: Prothrombin Time INR (Routine) Timeframe: 3 Days Facility: [facility] - Location: Lab - Main Lab Ordered By: Patsy Christopher Referrals: lab [Other] - 1-3 days (Please go to main lab located inside the hospital at the [facility] 3 days after discharge to have labs drawn. ) [facility] [place] [facility] Care ([facility]) [Outside] Judi Bennett MD [Physician] - 12/07/21 1:45 pm Autumn Pierre DO [Primary Care Provider] - 11/29/21 2:30 pm Discharge Diet: Usual diet Discharge Activity: Limit activity as instructed, Use walker/crutches as instructed and As per PT/OT instructions Patient Instructions: Hip Fracture (ED), Opioid Safety Activity Restrictions/Additional Instructions: Posterior hip precautions. Ice to left hip. Ambulate weight bearing as tolerated. Follow instructions per physical therapy for gait training and ambulation. Use a walker or crutches at all times. You may shower, but leave dressing in place. Maintain dressing until it peels off on its own. Discharge Attestations Time Spent in Discharge Care*: less than 30 min Quality Metrics Clinical Quality Measures [ No reported AMI, CVA or VTE this stay] Coding Level of Care Code Acute [facility] note Diagnoses Subcapital fracture of left hip S72.012A Encounter type: initial encounter Fracture type: closed
[2021-11-23 11:40] LABS: Glucose Point of Care 109 mg/dL (70-110)
--- NOTE | 2021-11-23 13:02 | P.PN_ITS ---
Subjective Subjective: Patient was seen earlier this morning. Patient underwent bipolar hip arthroplasty last evening. The surgery was well-tolerated. He is doing well this morning. He will work with physical therapy today. Medications: Reviewed: Yes Vitals/I&O/Wt Last Vital Signs Temp 95.6 F L 11/23/21 11:12 Pulse 76 11/23/21 11:12 Resp 12 11/23/21 11:12 BP 147/55 11/23/21 11:12 Pulse Ox 95 11/23/21 11:12 11/22/21 11/23/21 11/23/21 22:59 06:59 14:59 Intake Total 1650 / 1801 878.75 / 2679.75 300 / 300 Output Total 1150 / 1350 620 / 1970 Balance 500 / 451 258.75 / 709.75 300 / 300 Weight last 48 hrs Weight 188 lb Weight 180 lb Physical Exam Const: COMMON NORMALS: no acute distress, average body habitus, patient oriented x3 and alert GENERAL APPEARANCE: cooperative and comfortable LUISITO ENTATION/CONSCIOUSNESS: Yes awake HENMT: COMMON NORMALS: normocephalic and atraumatic HEAD & SCALP: normoce phalic and atraumatic Eye: GENERAL EYE: appearance normal, both eyes and all related structures Chest: COMMONS NORMALS: normal inspection of the chest Resp: COMMON NORMALS: normal respiratory effort EFFORT & INSPECTION: Yes able to speak in complete sentences and Yes symmetric chest movement Extremity: NARRATIVE EXTREMITY EXAM: Patient denies other lower extremity injury, but he does complain of pain in his right knee as well as pain in his left fingers. LEFT LOWER EXTREMITY: Yes hip joint (Dressing is dry and intact without drainage.) Left hip: Yes inspection (Minimal to no ecchymosis.), Yes palpation (Minimal tenderness), Yes ROM (Not evaluated.) and Yes neurovascular exam (Intact with no evidence of DVT) Neuro: COMMON NORMALS: patient oriented x3 SENSORIUM/ORIENTATION: Yes alert Psych: COMMON NORMALS: mental status grossly normal APPEARANCE: Yes grossly normal ATTITUDE: Yes calm and Yes engaged ATTENTION/CONCENTRATION: Yes attention grossly intact Skin: COMMON NORMALS: no rashes or lesions noted GENERAL SKIN EXAM: no rashes or lesions noted Urinary Catheter Management: Yu: Cath Placed During This Visit: yes, but has since been removed by the nurse Reason for Continuing Indwelling Catheter: Perioperative Use in Selected Surgeries Urinary Catheter Date of Insertion: 11/22/21 Urinary Catheter Time of Insertion: 15:45 Date Urinary Catheter Removed: 11/23/21 Time Urinary Catheter Discontinued: 05:38 Data : 11/23/21 05:32 11/23/21 05:32 A&P Assessment and plan (1) Subcapital fracture of left hip: Patient underwent uneventful bipolar hip arthroplasty late yesterday afternoon. Today, he was doing well and is ready to participate with physical therapy. Plans were made for his discharge to home unless he has issues with his physical therapy. He is comfortable with this plan. He may be weightbearing as tolerated with posterior hip precautions. He will follow-up with me in approximately 2 weeks. Status: Acute Qualifiers: Encounter type: initial encounter Fracture type: closed Qualified Code(s): S72.012A - Unspecified intracapsular fracture of left femur, initial encounter for closed fracture Attestations Medical Necessity Statement*: Patient requires hospitalization which was anticipated to be greater than 2 midnights for treatment of left hip fracture. Coding Level of Care Code Acute Clerical Manager for 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 Diagnoses Subcapital fracture of left hip S72.012A Encounter type: initial encounter Fracture type: closed
[2021-11-23] MEDS: warfarin 2 mg Tablet PO ×2 (14:00)
== END 2021-11-23 14:25 | disposition home health service (06) | DRG 522 ==
LOC: ER 11-22 04:47 → MEDSURG 11-22 05:15
PROVIDERS: Physician Assistant; Specialist; Admitting Provider Internal Medicine; Emergency Provider Emergency Medicine; PCP Family Medicine; Visit Provider Internal Medicine
PROC: 0SRS0JZ Replacement of Left Hip Joint, Femoral Surface with Synthetic Substitute, Open Approach (ICD-10-PCS; CPT 27125; principal; 2021-11-22 13:05)
DX: S72.012A Unspecified intracapsular fracture of left femur, initial encounter for closed fracture (principal); W01.0XXA Fall on same level from slipping, tripping and stumbling without subsequent striking against object, initial encounter; E11.22 Type 2 diabetes mellitus with diabetic chronic kidney disease; I12.9 Hypertensive chronic kidney disease with stage 1 through stage 4 chronic kidney disease, or unspecified chronic kidney disease; N18.9 Chronic kidney disease, unspecified; J43.9 Emphysema, unspecified; I48.91 Unspecified atrial fibrillation; Z79.01 Long term (current) use of anticoagulants; K21.9 Gastro-esophageal reflux disease without esophagitis; Z87.891 Personal history of nicotine dependence; E21.3 Hyperparathyroidism, unspecified; M10.9 Gout, unspecified; E78.5 Hyperlipidemia, unspecified; Z79.51 Long term (current) use of inhaled steroids; Z79.84 Long term (current) use of oral hypoglycemic drugs
CPT/HCPCS: 36415; 36416; 36430; 51702; 71045; 72170; 73502; 73700; 80048; 80053; 80503; 82962; 85007; 85025; 85610; 85730; 86900; 86927; 93005; 96372; 96374; 96375; 97110; 97116; 97161; 97165; 99285; C1776; J0690; J1170; J2270; J2370; J2405; J2704; J2710; J3010; J3370; J3430; J3490; J7030; P9017

== ENCOUNTER 2021-11-25 08:07 | Outpatient (CLI) | payer MEDICARE, BC, SELFPAY ==
[2021-11-25 08:27] LABS: Basophils % 0.1 %; Eosinophils # 0.4 10^3/uL (0.0-0.8); Eosinophils % 2.4 %; Hematocrit 38.4 % (42.0-52.0); Lymphocytes # 5.6 10^3/uL (0.8-4.8); Lymphocytes % 36.4 %; Mean Corpuscular HGB Conc 31.3 g/dL (30.0-36.0); Mean Corpuscular Hemoglobin 31.2 pg (28.0-34.0); Mean Corpuscular Volume 99.7 fl (80-94); Mean Platelet Volume 9.8 fL (7.4-10.4); Monocytes # 1.1 10^3/uL (0.2-0.9); Monocytes % 7.3 %; Neutrophils # 8.15 10^3/uL (1.8-7.7); Neutrophils % 53.3 %; Nucleated Red Blood Cells % 0 %; Platelet Count 144 10^3/cmm (130-400); Red Blood Count 3.85 10^6/uL (4.1-5.3); Red Cell Distribution Width 13.4 % (12.1-15.1); White Blood Count 15.3 10^3/uL (4.0-10.0)
[2021-11-25 08:44] LABS: INR 1.14 (0.8-1.2)
[2021-11-25 08:52] LABS: Slide Review Slide Review Perform
== END 2021-11-25 08:08 | disposition home or self-care (01) ==
LOC: RAD 08:09 → LAB 08:11
PROVIDERS: Internal Medicine Hematology & Oncology; PCP Family Medicine; Visit Provider Internal Medicine
DX: S72.002A Fracture of unspecified part of neck of left femur, initial encounter for closed fracture (principal); S72.012A Unspecified intracapsular fracture of left femur, initial encounter for closed fracture; D72.829 Elevated white blood cell count, unspecified
CPT/HCPCS: 85025; 85610

== ENCOUNTER → 2021-12-01 12:48 | Outpatient (BNVA) | payer MEDICARE, BC, SELFPAY | PROVIDERS: PCP Family Medicine; Visit Provider Internal Medicine Cardiovascular Disease | DX: Z79.01 Long term (current) use of anticoagulants (principal) ==

== ENCOUNTER → 2021-12-07 13:18 | Outpatient (BNVA) | payer MEDICARE, BC, SELFPAY | PROVIDERS: PCP Family Medicine; Visit Provider Specialist | DX: Z96.642 Presence of left artificial hip joint (principal); X58.XXXA Exposure to other specified factors, initial encounter; S72.012A Unspecified intracapsular fracture of left femur, initial encounter for closed fracture | CPT/HCPCS: 73502 ==

== ENCOUNTER → 2021-12-09 09:33 | Outpatient (BNVA) | payer MEDICARE, BC, SELFPAY | PROVIDERS: PCP Family Medicine; Visit Provider Internal Medicine Cardiovascular Disease | DX: Z79.01 Long term (current) use of anticoagulants (principal) ==

== ENCOUNTER → 2021-12-14 08:06 | Outpatient (BNVA) | payer MEDICARE, BC, SELFPAY | PROVIDERS: PCP Family Medicine; Visit Provider Internal Medicine Cardiovascular Disease | DX: Z79.01 Long term (current) use of anticoagulants (principal) ==

== ENCOUNTER → 2021-12-21 09:36 | Outpatient (BNVA) | payer MEDICARE, BC, SELFPAY | PROVIDERS: PCP Family Medicine; Visit Provider Internal Medicine Cardiovascular Disease | DX: Z79.01 Long term (current) use of anticoagulants (principal) ==

== ENCOUNTER → 2021-12-26 11:21 | Outpatient (BNVA) | payer MEDICARE, BC, SELFPAY | PROVIDERS: PCP Family Medicine; Visit Provider Family Medicine | DX: Z53.9 Procedure and treatment not carried out, unspecified reason (principal) | CPT/HCPCS: 99999 ==

== ENCOUNTER → 2021-12-28 10:56 | Outpatient (BNVA) | payer MEDICARE, BC, SELFPAY | PROVIDERS: PCP Family Medicine; Visit Provider Internal Medicine Cardiovascular Disease | DX: Z79.01 Long term (current) use of anticoagulants (principal) ==

== ENCOUNTER → 2022-01-05 10:38 | Outpatient (BNVA) | payer MEDICARE, BC, SELFPAY | PROVIDERS: PCP Family Medicine; Visit Provider Internal Medicine Cardiovascular Disease | DX: Z79.01 Long term (current) use of anticoagulants (principal) ==

== ENCOUNTER → 2022-01-12 08:18 | Outpatient (BNVA) | payer MEDICARE, BC, SELFPAY | PROVIDERS: PCP Family Medicine; Visit Provider Internal Medicine Cardiovascular Disease | DX: Z79.01 Long term (current) use of anticoagulants (principal) ==

== ENCOUNTER → 2022-01-18 08:57 | Outpatient (BNVA) | payer MEDICARE, BC, SELFPAY | PROVIDERS: PCP Family Medicine; Visit Provider Internal Medicine Cardiovascular Disease | DX: Z79.01 Long term (current) use of anticoagulants (principal) ==

== ENCOUNTER → 2022-01-25 09:15 | Outpatient (BNVA) | payer MEDICARE, BC, SELFPAY | PROVIDERS: PCP Family Medicine; Visit Provider Internal Medicine Cardiovascular Disease | DX: Z79.01 Long term (current) use of anticoagulants (principal) ==

== ENCOUNTER 2022-01-29 08:57 | Inpatient (IN) | payer MEDICARE, BC, SELFPAY ==
[2022-01-29] VITALS (16 sets, daily range): BP systolic 109–129; BP diastolic 50–72; PULSE 67–124; RESP 16–24; TEMP 36.8–37.7; O2SAT 91–100; BMI 25.7; BMI 26.2
--- NOTE | 2022-01-29 09:53 | ECG_ITS ---
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 Measurements Intervals Roundup Rate: 120 P: SD: QRS: -16 QRSD: 91 T: 65 QT: 341 QTc: 482 Interpretive Statements ATRIAL FLUTTER/TACHYCARDIA WITH RAPID VENTRICULAR RESPONSE INCOMPLETE RIGHT BUNDLE BRANCH BLOCK [90+ ms QRS DURATION, TERMINAL R IN V1/V2, 40+ ms S IN I/aVL/V4/V5/V6] ABNORMAL RHYTHM ECG Compared to ECG 11/22/2021 07:32:50 Sinus rhythm no longer present T-wave abnormality no longer present Electronically Signed On 01-29-2022 20:59:45 CDT by Rudi Briscoe M.D. [email or web address]
--- NOTE | 2022-01-29 09:53 | CTR_ITS ---
PROCEDURE INFORMATION: Exam: CT Head Without Contrast Exam date and time: 01/29/2022 11:04 AM Age: 81 years old Clinical indication: Altered mental status/memory loss; Confusion or disorientation; Additional info: Stroke symptoms TECHNIQUE: Imaging protocol: Computed tomography of the head without contrast. Radiation optimization: All CT scans at this facility use at least one of these dose optimization techniques: automated exposure control; mA and/or kV adjustment per patient size (includes targeted exams where dose is matched to clinical indication); or iterative reconstruction. COMPARISON: No relevant prior studies available. RADIATION DOSE METRICS: Total DLP (mGy-cm): 1053.88 FINDINGS: Brain: Mild central and cortical atrophy and small vessel ischemic disease. No evidence of intracranial blood. Cerebral ventricles: No ventriculomegaly. Paranasal sinuses: Minimal sinus disease with possible prior ethmoidal air cell surgery. Mastoid air cells: Visualized mastoid air cells are well aerated. Bones/joints: Unremarkable. No acute fracture. Soft tissues: Unremarkable. CT/CT head wo con* [id number] IMPRESSION: No acute intracranial abnormality.
--- NOTE | 2022-01-29 09:55 | XRR_ITS ---
PROCEDURE INFORMATION: Exam: XR Chest Exam date and time: 01/29/2022 10:53 AM Age: 81 years old Clinical indication: Cough and shortness of breath TECHNIQUE: Imaging protocol: Radiologic exam of the chest. Views: 2 views. COMPARISON: CR XR chest 1V portable [id number] 11/22/2021 6:17 AM FINDINGS: Lungs: Bibasilar infiltrates. Increased in the left new on the right. Pleural spaces: Unremarkable. No pleural effusion. No pneumothorax. Heart/Mediastinum: Unremarkable. No cardiomegaly. Bones/joints: Stable spinal fixation. XR/XR chest 2V* [id number] IMPRESSION: Bibasilar infiltrates.
--- NOTE | 2022-01-29 09:57 | W.ED.WEAKNES ---
HPI - Weakness General: Chief complaint: Weakness Stated complaint: having problems with lungs and walking Time Seen by Provider: 01/29/22 09:45 History of Present Illness: Patient comes in with multiple concerns including increased phlegm production and shortness of breath over the past couple of days. Also states for the past few days he has been unsteady on his feet with nausea. States this came on suddenly. Denies fever, vomiting, or diarrhea. States that he does not feel dizzy he just feels unsteady and when he walks he wobbles. Associated symptoms: Reports nausea; Denies chest pain, dysuria, fever(s), headache(s) or vomiting Review of Systems Const: Reports: body aches; Denies: fever(s) Eyes: Denies: change in vision or blurry vision ENMT: Denies: throat pain or odynophagia Card: Denies: chest pain or palpitations Resp: Reports: productive cough; Denies: dyspnea GI: Reports: nausea; Denies: abdominal pain or vomiting : Denies: flank pain or dysuria Musc: Denies: neck pain or back pain Skin/Breast: Denies: rash or pruritus Neuro: Denies: headache(s) or numbness in extremities Psych: Denies: anxiety or change in appetite Endo: Denies: polyuria or excessive sweating PFSH ED PFSH: Medical History Atopic dermatitis, unspecified CAP (community acquired pneumonia) CKD (chronic kidney disease) COPD (chronic obstructive pulmonary disease) Dyslipidemia Edema leg Essential (primary) hypertension GERD (gastroesophageal reflux disease) Gout, unspecified Long-term (current) use of anticoagulants, INR goal 2.0-3.0 Lymphocytosis Orthopnea Pain in left finger(s) Pain in right knee Type 2 diabetes mellitus without complications Unspecified atrial fibrillation Surgical History History of cholecystectomy History of prostate surgery History of total knee replacement Family History Other Cancer Social History Smoking and tobacco status: former smoker Quit status (tobacco): has quit using tobacco Year quit tobacco: 2010 - 1PPD x 50 Years Second hand smoke exposure: No Alcohol intake: current Lives independently: Yes Household members: spouse Marital status: Current occupational status: retired History of recent travel: No Current gender identity: Male Physical Exam Const: COMMON NORMALS: no acute distress, patient oriented x3, healthy appearing and alert HENMT: COMMON NORMALS: normocephalic and atraumatic HEAD & SCALP: normocephalic and atraumatic Eye: COMMON NORMALS: Equal, round and reactive pupils present and EOMs intact bilaterally PUPIL: Yes Equal, round and reactive pupils present Neck/C-Spine: COMMON NORMALS: full ROM and supple Resp: COMMON NORMALS: normal respiratory effort, No retractions and No use of accessory muscles Cardio: OTHER: Tachycardia with an irregular rhythm GI: COMMON NORMALS: Normal to inspection, nondistended, normoactive bowel sounds present, Soft to palpation and non-tender PALPATION: Yes Soft to palpation Back/Pelvis: COMMON NORMALS: thoracic and lumbar spine normal to inspection and no thoracic nor lumbar tenderness Extremity: COMMON NORMALS: normal to inspection and full ROM Neuro: COMMON NORMALS: patient oriented x3 SENSORIUM/ORIENTATION: Yes alert OTHER: Abnormal gait Psych: COMMON NORMALS: mental status grossly normal and cooperative Skin: COMMON NORMALS: no rashes or lesions noted and no wounds GENERAL SKIN EXAM: no rashes or lesions noted Course Vital Signs: Vital signs: Vital Signs Temperature 98.5 F 01/29/22 09:18 Pulse Rate 119 H 01/29/22 12:30 Respiratory Rate 16 01/29/22 12:30 Blood Pressure 128/68 01/29/22 12:30 Pulse Oximetry 96 01/29/22 12:00 MDM - Weakness Medical Decision Making Patient comes in with multiple concerns including increased phlegm production and shortness of breath over the past couple of days. Also states for the past few days he has been unsteady on his feet with nausea. States this came on suddenly. Denies fever, vomiting, or diarrhea. States that he does not feel dizzy he just feels unsteady and when he walks he wobbles. On physical exam his neuro exam is grossly normal except his gait which is off. Will check labs, x-ray, CT, EKG, and reassess. On reassessment I talked to the patient about the test results. I did get the patient up to walk him and he is unsteady on his feet. I discussed the case with the hospitalist. We will start antibiotics for pneumonia, and admit for further work-up and treatment. His heart rate has improved significantly on the diltiazem drip. Lab Data : 01/29/22 10:40 01/29/22 12:[address] 01/29/22 09:53 IMPRESSION: No acute intracranial abnormality. Laboratory Results WBC 37.2 10^3/uL (4.0-10.0) H* 01/29/22 10:40 RBC 4.37 10^6/uL (4.1-5.3) 01/29/22 10:40 Hgb 13.4 g/dL (11.7-16.6) 01/29/22 10:40 Hct 41.7 % (42.0-52.0) L 01/29/22 10:40 MCV 95.4 fl (80-94) H 01/29/22 10:40 MCH 30.7 pg (28.0-34.0) 01/29/22 10:40 MCHC 32.1 g/dL (30.0-36.0) 01/29/22 10:40 RDW 13.9 % (12.1-15.1) 01/29/22 10:40 Plt Count 234 10^3/cmm (130-400) 01/29/22 10:40 MPV 10.8 fL (7.4-10.4) H 01/29/22 10:40 Neut % (Auto) 66.8 % 01/29/22 10:40 Lymph % (Auto) 27.3 % 01/29/22 10:40 Rice % (Auto) 4.3 % 01/29/22 10:40 Eos % (Auto) 0.5 % 01/29/22 10:40 Baso % (Auto) 0.2 % 01/29/22 10:40 Neut # (Auto) 24.89 10^3/uL (1.8-7.7) H 01/29/22 10:40 Lymph # (Auto) 10.1 10^3/uL (0.8-4.8) H 01/29/22 10:40 Rice # (Auto) 1.6 10^3/uL (0.2-0.9) H 01/29/22 10:40 Eos # (Auto) 0.2 10^3/uL (0.0-0.8) 01/29/22 10:40 Baso # (Auto) 0.1 10^3/uL (0.0-0.1) 01/29/22 10:40 Nucleated RBC % (auto) 0 % 01/29/22 10:40 Nucleated RBCs # 0.0 /100WBC 01/29/22 10:40 PT 20.90 SECONDS (12.1-14.9) H 01/29/22 10:40 INR 1.76 (0.8-1.2) H 01/29/22 10:40 Specimen Type Arterial 01/29/22 10:01 Sample Site Radial, left 01/29/22 10:01 ABG pH 7.46 (7.35-7.45) H 01/29/22 10:01 ABG pCO2 37.1 mmHg (35-45) 01/29/22 10:01 ABG pO2 66.7 mmHg (80.0-100.0) L 01/29/22 10:01 ABG HCO3 26.1 mmol/L (22-26) H 01/29/22 10:01 ABG Base Excess 2.2 mmol/L (-2.0-2.0) H 01/29/22 10:01 Hema Test Pos 01/29/22 10:01 Hematocrit 42.3 % (42-52) 01/29/22 10:01 O2 Delivery Device Nc 01/29/22 10:01 O2 Liters/Min 2.0 % 01/29/22 10:01 FiO2 28.0 % 01/29/22 10:01 Packaging Inspector ID Ed 01/29/22 10:01 Sodium Cancelled 01/29/22 10:40 Potassium Cancelled 01/29/22 10:40 Chloride Cancelled 01/29/22 10:40 Carbon Dioxide Cancelled 01/29/22 10:40 Anion Gap Cancelled 01/29/22 10:40 BUN Cancelled 01/29/22 10:40 Creatinine Cancelled 01/29/22 10:40 GFR Calculation Cancelled 01/29/22 10:40 Glucose Cancelled 01/29/22 10:40 Calculated Osmolality Cancelled 01/29/22 10:40 Lactate 0.8 mmol/L (0.5-2.2) 01/29/22 12:34 Calcium Cancelled 01/29/22 10:40 Magnesium Cancelled 01/29/22 10:40 Total Bilirubin Cancelled 01/29/22 10:40 AST Cancelled 01/29/22 10:40 ALT Cancelled 01/29/22 10:40 Alkaline Phosphatase Cancelled 01/29/22 10:40 Troponin T Baseline Cancelled 01/29/22 10:40 NT-Pro-B Natriuret Pep Cancelled 01/29/22 10:40 Total Protein Cancelled 01/29/22 10:40 Albumin Cancelled 01/29/22 10:40 Globulin Cancelled 01/29/22 10:40 Ethyl Alcohol Cancelled 01/29/22 10:40 Discharge Plan Discharge Patient Disposition: Admitted As Inpatient Clinical Impression: Atrial flutter with rapid ventricular response, Pneumonia Condition: Stable Prescriptions: No Action PreserVision AREDS-2 250-90-40-1 mg capsule 1 tab PO DAILY 0RF ipratropium-albuterol 0.5 mg-3 mg(2.5 mg base)/3 mL solution for nebulization 3 ml inhalation Q6H PRN (Reason: Shortness Of Breath) 0RF warfarin 2 mg tablet 2 mg PO DAILY Qty: 90 2RF Protocol: Dose Management Condition: Sunday Dose/Route: 3 mg Instruction: 1 x 3 mg tablet Condition: Sunday Dose/Route: 2 mg Instruction: 1 x 2 mg tablet Condition: Sunday Dose/Route: 3 mg Instruction: 1 x 3 mg tablet Condition: Sunday Dose/Route: 2 mg Instruction: 1 x 2 mg tablet Condition: Dose/Route: 3 mg Instruction: 1 x 3 mg tablet Condition: Sunday Dose/Route: 2 mg Instruction: 1 x 2 mg tablet Condition: Sunday Dose/Route: 3 mg Instruction: 1 x 3 mg tablet Protocol Text: Adjustment Start Date: Sunday01/25/22 INR Value: 2.4 INR Date: 01/23/22 Recheck Date: 02/01/22 hydrochlorothiazide 25 mg tablet 25 mg PO QAM Qty: 90 0RF citalopram 20 mg tablet 20 mg PO QAM Qty: 90 1RF allopurinol 300 mg tablet 150 mg PO QAM Qty: 90 0RF (DME) front wheeled walker See Rx Instructions .Route .MEDSUPPLY Qty: 1 0RF Rx Instructions: As directed Incruse Ellipta 62.5 mcg/actuation blister with device 1 inh inhalation DAILY Qty: 30 0RF atorvastatin [Lipitor] 20 mg tablet 20 mg PO BEDTIME 0RF amiodarone 200 mg tablet 200 mg PO BEDTIME 0RF fluticasone propion-salmeterol [Advair Diskus] 500-50 mcg/dose blister with device 1 inh inhalation BID 0RF Rx Instructions: 340 B albuterol sulfate 90 mcg/actuation HFA aerosol inhaler 2 puff inhalation Q4H PRN (Reason: Shortness Of Breath) 0RF Tradjenta 5 mg tablet 5 mg PO BEDTIME 0RF warfarin 3 mg tablet See Rx Instructions mg .ROUTE .COMPLEX 0RF Protocol: Dose Management Condition: Sunday Dose/Route: 3 mg Instruction: 1 x 3 mg tablet Condition: Sunday Dose/Route: 2 mg Instruction: 1 x 2 mg tablet Condition: Sunday Dose/Route: 3 mg Instruction: 1 x 3 mg tablet Condition: Sunday Dose/Route: 2 mg Instruction: 1 x 2 mg tablet Condition: Dose/Route: 3 mg Instruction: 1 x 3 mg tablet Condition: Sunday Dose/Route: 2 mg Instruction: 1 x 2 mg tablet Condition: Sunday Dose/Route: 3 mg Instruction: 1 x 3 mg tablet Protocol Text: Adjustment Start Date: Sunday01/25/22 INR Value: 2.4 INR Date: 01/23/22 Recheck Date: 02/01/22 Rx Instructions: 2mg po qam on sun,sun, and sun and 3mg po on sun,,,and sun ondansetron HCl 4 mg tablet 4 mg PO Q6H PRN (Reason: nausea and vomiting) Qty: 20 0RF tamsulosin 0.4 mg capsule 0.4 mg PO BEDTIME 0RF metoprolol tartrate 25 mg tablet 25 mg PO DAILY PRN (Reason: heartrate) 0RF oxycodone 10 mg tablet 10 mg PO Q8H Qty: 20 0RF Senna-S 8.6-50 mg tablet 1 tab-cap PO BID Qty: 60 0RF Referrals: Autumn Pierre DO [Primary Care Provider] - Coding Level of Care Code ED Field Adjuster for Chg Fwd Exam Comprehensive
[2022-01-29 10:11] LABS: ABG PCO2 37.1 mmHg (35-45); ABG PH Result 7.46 (7.35-7.45); Arterial Blood Gas Hematocrit 42.3 % (42-52); Base Excess ABG 2.2 mmol/L (-2.0-2.0); Blood Gas Allen Test Pos; Blood Gas Operator Identificat ED; Blood Gas Sample Site Radial, left; Blood Gas Sample Type Arterial; HCO3 ABG 26.1 mmol/L (22-26); Oxygen Device NC; PO2 ABG 66.7 mmHg (80.0-100.0)
[2022-01-29 10:50] LABS: Basophils # 0.1 10^3/uL (0.0-0.1); Basophils % 0.2 %; Eosinophils # 0.2 10^3/uL (0.0-0.8); Eosinophils % 0.5 %; Hematocrit 41.7 % (42.0-52.0); Hemoglobin 13.4 g/dL (11.7-16.6); Lymphocytes # 10.1 10^3/uL (0.8-4.8); Lymphocytes % 27.3 %; Mean Corpuscular HGB Conc 32.1 g/dL (30.0-36.0); Mean Corpuscular Hemoglobin 30.7 pg (28.0-34.0); Mean Corpuscular Volume 95.4 fl (80-94); Mean Platelet Volume 10.8 fL (7.4-10.4); Monocytes # 1.6 10^3/uL (0.2-0.9); Monocytes % 4.3 %; Neutrophils # 24.89 10^3/uL (1.8-7.7); Neutrophils % 66.8 %; Nucleated Red Blood Cells % 0 %; Platelet Count 234 10^3/cmm (130-400); Red Blood Count 4.37 10^6/uL (4.1-5.3); Red Cell Distribution Width 13.9 % (12.1-15.1)
[2022-01-29 11:15] LABS: Slide Review Slide Review Perform
[2022-01-29 11:17] LABS: White Blood Count 37.2 10^3/uL (4.0-10.0)
[2022-01-29] MEDS: dilTIAZem 5 mg/mL SDV 5 mL 10 MG IVP (11:28)
[2022-01-29] MEDS: calcium gluconate 0.9% NaCL 1 GM/50 ML PREMIX IV (11:30)
[2022-01-29] MEDS: sodium chloride 0.9% 500 ML 999 ML IV (11:31)
[2022-01-29 11:50] LABS: INR 1.76 (0.8-1.2)
--- NOTE | 2022-01-29 12:52 | P.HP_ITS ---
Providers/Chief Complaint Primary Care Provider: Autumn Pierre DO Chief Complaint: having problems with lungs and walking History of Present Illness Jesús Cole is a 81 year old male Medications/Allergies Home Medications Medication Instructions Recorded Confirmed Last Taken Type vit C 250 mg-vit E 90 mg-zinc 40 1 tab PO DAILY cap 08/19/21 12/07/21 Unknown History mg-copper 1 [id number] capsule (PreserVision AREDS-2) albuterol sulfate 90 mcg/actuation 2 puff INHALATION Q4H PRN 10/26/21 12/07/21 Unknown History aerosol inhaler amiodarone 200 mg tablet 200 mg PO BEDTIME 10/26/21 12/07/21 10/25/21 History atorvastatin 20 mg tablet (Lipitor) 20 mg PO BEDTIME 10/26/21 12/07/21 10/25/21 History fluticasone 500 mcg-salmeterol 50 1 inh INHALATION BID 10/26/21 12/07/21 Unknown History mcg/dose blistr powdr for inhalation (Advair Diskus) linagliptin 5 mg tablet (Tradjenta) 5 mg PO BEDTIME 10/26/21 12/07/21 10/25/21 History ondansetron HCl 4 mg tablet 4 mg PO Q6H PRN #20 tab 10/26/21 12/07/21 Unknown Rx warfarin 3 mg tablet See Rx Instructions .ROUTE .COMPLEX 10/26/21 01/25/22 10/25/21 History hydrochlorothiazide 25 mg tablet 25 mg PO QAM #90 tab 11/14/21 12/07/21 Unknown Rx ipratropium 0.5 mg-albuterol 3 mg 3 ml INHALATION Q6H PRN 11/14/21 12/07/21 Unknown History (2.5 mg base)/3 mL nebulization soln citalopram 20 mg tablet 20 mg PO QAM #90 tab 11/17/21 12/07/21 Unknown Rx metoprolol tartrate 25 mg tablet 25 mg PO DAILY PRN 11/22/21 12/07/21 Unknown History tamsulosin 0.4 mg capsule 0.4 mg PO BEDTIME 11/22/21 12/07/21 Unknown History warfarin 2 mg tablet 2 mg PO DAILY #90 tab 11/22/21 01/25/22 Unknown Rx oxycodone 10 mg tablet 10 mg PO Q8H #20 tab 11/23/21 12/07/21 Unknown Rx sennosides 8.6 mg-docusate sodium 1 tab-cap PO BID #60 tab 11/23/21 12/07/21 Unknown Rx 50 mg tablet (Senna-S) allopurinol 300 mg tablet 150 mg PO QAM #90 tab 11/25/21 12/07/21 Unknown Rx front wheeled walker #1 ea 11/25/21 12/07/21 Unknown Rx umeclidinium 62.5 mcg/actuation 1 inh INHALATION DAILY #30 ea 01/26/22 Unknown Rx blister powder for inhalation (Incruse Ellipta) Allergies Allergy/AdvReac Type Severity Reaction Status Date / Time No Known Allergies Allergy Verified 12/07/21 13:37 PFSH Acute PFSH: Medical History Atopic dermatitis, unspecified CAP (community acquired pneumonia) CKD (chronic kidney disease) COPD (chronic obstructive pulmonary disease) Dyslipidemia Edema leg Essential (primary) hypertension GERD (gastroesophageal reflux disease) Gout, unspecified Long-term (current) use of anticoagulants, INR goal 2.0-3.0 Lymphocytosis Orthopnea Pain in left finger(s) Pain in right knee Type 2 diabetes mellitus without complications Unspecified atrial fibrillation Surgical History History of cholecystectomy History of prostate surgery History of total knee replacement Family History Other Cancer Social History Smoking and tobacco status: former smoker Quit status (tobacco): has quit using tobacco Year quit tobacco: 2009 - 1PPD x 50 Years Second hand smoke exposure: No Alcohol intake: current Lives independently: Yes Household members: spouse Marital status: Current occupational status: retired History of recent travel: No Current gender identity: Male Vitals/I&O/Wt Last Vital Signs Temp 98.5 F 01/29/22 09:18 Pulse 119 H 01/29/22 12:30 Resp 16 01/29/22 12:30 BP 128/68 01/29/22 12:30 Pulse Ox 96 01/29/22 12:00 Weight last 48 hrs Weight 81.193 kg Data : 01/29/22 10:40 01/29/22 12:34 Coding Level of Care Code Acute Social Research Assistant for Clarig Amadeo
[2022-01-29 12:58] LABS: Lactate (Lactic Acid level) 0.8 mmol/L (0.5-2.2)
[2022-01-29 13:06] LABS: Troponin(5th) Baseline 30 ng/L (0-15)
[2022-01-29 13:13] LABS: Alanine Aminotransferase 23 U/L (0-41); Albumin Level 3.3 g/dL (3.5-5.2); Alkaline Phosphatase 112 IU/L (40-130); Anion Gap 14.4 (5-19); Aspartate Amino Transferase 17 U/L (0-40); Blood Urea Nitrogen 32 mg/dL (8-23); Calcium 9.1 mg/dL (8.5-10.5); Carbon Dioxide 25 mmol/L (22-29); Chloride 99 mmol/L (98-107); Globulin 2.6 g/dL (1.3-4.6); Glucose 112 mg/dL (65-115); Magnesium 1.7 mg/dL (1.7-2.3); NT Pro B Type Natriuretic Pept 1201 pg/mL (0-450); Osmolality Calculated 286 mOsm/kg (285-295); Potassium 4.4 mmol/L (3.5-5.1); Sodium 134 mmol/L (136-145); Total Bilirubin 0.7 mg/dL (0.15-1.2); Total Protein 5.9 g/dL (6.6-8.7)
[2022-01-29 13:23] LABS: Alcohol Level < 10 mg/dL (0-10)
--- NOTE | 2022-01-29 14:18 | USCV_ITS ---
Jesús Cole Age: 81 Gender: M : 1940 Exam Date: 01/29/2022 20:58 Ordering Phys: Jeni Garcia MD Technologist: Hayes Hollis Exam Location: [facility] – [place] Indication: congestive heart failure BP: 126 / 63 HR: 81 Rhythm: Other Technical Quality: Adequate MEASUREMENTS (Male / Female) Normal Values 2D ECHO LV Diastolic Diameter PLAX 3.9 cm 4.2 - 5.9 / 3.9 - 5.3 cm LV Systolic Diameter PLAX 2.8 cm IVS Diastolic Thickness 1.6 cm 0.6 - 1.0 / 0.6 - 0.9 cm IVS Systolic Thickness 1.6 cm LVPW Diastolic Thickness 1.3 cm 0.6 - 1.0 / 0.6 - 0.9 cm LVPW Systolic Thickness 1.8 cm LVOT Diameter 2.2 cm LV Ejection Fraction 2D Teich 47.3 % LV Ejection Fraction MOD 2C 28.7 % LV Ejection Fraction 2C AL 25.9 % LA Diameter 3.5 cm LA Width 5.4 cm LA Height 5.1 cm RA Width 5.2 cm RA Height 5.0 cm Aorta at Sinotubular Diameter 2.6 cm IVC Diameter 1.6 cm M-MODE Aortic Annulus Diameter 3.3 cm LA Ao Ratio MM 1.2 MV E Point Septal Separation 0.4 cm DOPPLER AV Peak Velocity 139.4 cm/s LVOT Peak Velocity 87.0 cm/s AV Area Cont Eq vti 2.2 cm squared AV Area Cont Eq pk 2.3 cm squared MV Area PHT 5.0 cm squared Mitral E to A Ratio 0.8 MV E' Velocity 34.0 cm/s Mitral E to MV E' Ratio 8.7 Mitral E to LV E' Lateral Ratio 8.6 Mitral E to LV E' Septal Ratio 8.8 TR Peak Velocity 114.9 cm/s TR Peak Gradient 5.3 mmHg TR Mean Velocity 68.0 cm/s TR Mean Gradient 2.3 mmHg TR Velocity Time Integral 19.3 cm Right Atrial Pressure 8.0 mmHg Pulmonary Artery Systolic Pressu 13.3 mmHg PV Peak Velocity 105.7 cm/s FINDINGS Left Ventricle Normal left ventricular size and systolic function, EF 50 %. Diffuse hypokinesis of the septum and anteroseptal segments. Because of the frequent supraventricular ectopics in the form of bigeminy, segmental wall motion is somewhat difficult Right Ventricle The right ventricle is normal in size and function. Right Atrium The right atrium is normal in size. Left Atrium The left atrium is normal in size. Mitral Valve Thickened mitral valve. Aortic Valve Thickened aortic valve. Tricuspid Valve No gross abnormalities noted Pulmonic Valve Pulmonic valve not well visualized. Pericardium Normal pericardium without effusion. Aorta Normal aortic annulus size. IVC Normal inferior vena cava. CONCLUSIONS Normal left ventricular size and systolic function, EF around 50 %. Diffuse hypokinesis of the septum and anteroseptal segments. Because of the frequent supraventricular ectopics in the form of bigeminy, segmental wall motion is somewhat difficult. Thickened aortic and mitral valves. There is no pericardial effusion. There are no intracardiac masses. Compared to the study from 02/04/2019, the ejection fraction appears to have decreased. This could be misleading because of the frequent arrhythmia Dr Rudi Briscoe MD FACC (Electronically Signed) Final Date: 30 January 2022 13:30 S
[2022-01-29] MEDS: famotidine 20 mg/2 mL INJ IVP (14:44)
[2022-01-29] MEDS: vancomycin 1,000 MG in sodium chloride 0.9% 250 ML 250 MG IV (14:44)
[2022-01-29 15:03] LABS: Chol HDL Ratio 2.15 mg/dL (1.0-5.00); Cholesterol 99 mg/dL (0-200); HDL Cholesterol 46 mg/dL (60-100); LDL Cholesterol Calculated 39 mg/dL (50-129); LDL HDL Ratio 0.85 RATIO (0.00-3.22); Thyroid Stimulating Hormone 1.74 uIU/mL (0.27-4.20); Triglycerides 70 mg/dL (0-150)
--- NOTE | 2022-01-29 15:09 | PM.HP ---
Providers/Chief Complaint Admitting Physician: Jeni Garcia MD Primary Care Provider: Autumn Pierre DO Chief Complaint: having problems with lungs and walking History of Present Illness Jesús Cole is a 81 year old male who was discharged on 11/23 after left bipolar hip arthroplasty by Dr. Bennett when he fell from his tractor presented to the hospital with chief complaint of worsening shortness of breath. At baseline he uses 3 L of oxygen for his underlying COPD. For last 2 weeks he has been experiencing productive cough, yellow sputum production, he has not noticed any fever, diarrhea, chest pain, orthopnea or PND however shortness of breath has worsened in the last 2 weeks. He is vaccinated for COVID-19. The main concern for today's ER visit was worsening shortness of breath. He is extremely weak and unstable on his feet. Patient is stating that he is very fidgety he does not take anything for his restless leg syndrome or akathisia. He has not noticed any strokelike features, no aspiration or choking on food. No extremity weakness or numbness. Diagnostic work-up in the ER revealed severe leukocytosis white count 37,000, please note Dr. Mahoney has evaluated him in the past for chronic leukocytosis peripheral smear did not show any malignant cells as per the pathology report, patient is stating that Dr. Mahoney wanted to manage him conservatively and told him to not worry about his leukocytosis. He has bilateral infiltrate right middle lobe pneumonia he is afebrile no signs of sepsis he is currently saturating 97% on 2 L nasal cannula He is very fidgety, endorsing akathisia We have started him on vancomycin and Zosyn, requested CT chest abdomen pelvis to rule out etiology for severe leukocytosis other than pneumonia Propanolol added, reduce the dose of amiodarone, metoprolol discontinued In the ER he has received ceftriaxone, azithromycin and diltiazem for A. fib RVR. He is on chronic anticoagulation with Coumadin and takes amiodarone, metoprolol for his A. fib. Review of Systems Const: Reports: chills, body aches and change in appetite Eyes: Denies: change in vision ENMT: Denies: throat pain Card: Reports: palpitations, irregular heart rhythm and dyspnea on exertion Resp: Reports: dyspnea, productive cough and change in phlegm color GI: Reports: abdominal pain, nausea, bloating and GI cramping : Denies: flank pain Musc: Denies: neck pain Skin/Breast: Denies: rash Neuro: Denies: headache(s) Psych: Reports: anxiety Endo: Denies: polyuria Fidencio/Lymph: Denies: easy bruising All/Imm: Denies: urticaria Medications/Allergies Home Medications Medication Instructions Recorded Confirmed Last Taken Type vit C 250 mg-vit E 90 mg-zinc 40 1 tab PO DAILY cap 08/19/21 01/29/22 01/28/22 History mg-copper 1 [id number] capsule (PreserVision AREDS-2) albuterol sulfate 90 mcg/actuation 2 puff INHALATION Q4H PRN 10/26/21 01/29/22 Unknown History aerosol inhaler amiodarone 200 mg tablet 200 mg PO BEDTIME 10/26/21 01/29/22 01/28/22 History atorvastatin 20 mg tablet (Lipitor) 20 mg PO BEDTIME 10/26/21 01/29/22 01/28/22 History fluticasone 500 mcg-salmeterol 50 1 inh INHALATION BID 10/26/21 01/29/22 01/28/22 History mcg/dose blistr powdr for inhalation (Advair Diskus) linagliptin 5 mg tablet (Tradjenta) 5 mg PO BEDTIME 10/26/21 01/29/22 01/28/22 History warfarin 3 mg tablet See Rx Instructions .ROUTE .COMPLEX 10/26/21 01/29/22 01/28/22 History hydrochlorothiazide 25 mg tablet 25 mg PO QAM #90 tab 11/14/21 01/29/22 01/28/22 Rx ipratropium 0.5 mg-albuterol 3 mg 3 ml INHALATION Q6H PRN 11/14/21 01/29/22 Unknown History (2.5 mg base)/3 mL nebulization soln citalopram 20 mg tablet 20 mg PO QAM #90 tab 11/17/21 01/29/22 01/28/22 Rx metoprolol tartrate 25 mg tablet 25 mg PO DAILY PRN 11/22/21 01/29/22 Unknown History tamsulosin 0.4 mg capsule 0.4 mg PO BEDTIME 11/22/21 01/29/22 01/28/22 History warfarin 2 mg tablet 2 mg PO DAILY #90 tab 11/22/21 01/29/22 01/27/22 Rx sennosides 8.6 mg-docusate sodium 1 tab-cap PO BID #60 tab 11/23/21 01/29/22 01/28/22 Rx 50 mg tablet (Senna-S) allopurinol 300 mg tablet 150 mg PO QAM #90 tab 11/25/21 01/29/22 01/28/22 Rx front wheeled walker #1 ea 11/25/21 01/29/22 Unknown Rx umeclidinium 62.5 mcg/actuation 1 inh INHALATION DAILY #30 ea 01/26/22 01/29/22 01/28/22 Rx blister powder for inhalation (Incruse Ellipta) oxycodone 10 mg tablet 10 mg PO Q8H PRN 01/29/22 01/29/22 Unknown History Allergies Allergy/AdvReac Type Severity Reaction Status Date / Time No Known Allergies Allergy Verified 12/07/21 13:37 PFSH Acute PFSH: Medical History Atopic dermatitis, unspecified CAP (community acquired pneumonia) CKD (chronic kidney disease) COPD (chronic obstructive pulmonary disease) Dyslipidemia Edema leg Essential (primary) hypertension GERD (gastroesophageal reflux disease) Gout, unspecified Long-term (current) use of anticoagulants, INR goal 2.0-3.0 Lymphocytosis Orthopnea Pain in left finger(s) Pain in right knee Type 2 diabetes mellitus without complications Unspecified atrial fibrillation Surgical History History of cholecystectomy History of prostate surgery History of total knee replacement Family History Other Cancer Social History Smoking and tobacco status: former smoker Quit status (tobacco): has quit using tobacco Year quit tobacco: 2009 - 1PPD x 50 Years Second hand smoke exposure: No Alcohol intake: current Lives independently: Yes Household members: spouse Marital status: Current occupational status: retired History of recent travel: No Current gender identity: Male Vitals/I&O/Wt Last Vital Signs Temp 98.5 F 01/29/22 09:18 Pulse 99 01/29/22 14:00 Resp 17 01/29/22 14:00 BP 119/71 01/29/22 14:00 Pulse Ox 92 01/29/22 14:22 Weight last 48 hrs Weight 81.193 kg Physical Exam Narrative: Very pleasant elderly male Currently looks euvolemic Mildly tachypneic Currently saturating well at 90% on 2 L nasal cannula I did not appreciate any adventitious rhonchi or crackles on anterior auscultation however posterior lung auscultation did reveal crackles bibasilar Abdomen soft No signs of edema EOMI, PERRLA Nonfocal neuro exam Nonpurposeful movement of arms and legs Akathisia is at the bedside Data : 01/29/22 10:40 01/29/22 12:34 A&P Assessment and plan (1) Atrial flutter with rapid ventricular response: Status: Acute (2) Pneumonia: Status: Acute (3) Behavior-irritability: Status: Acute (4) Dyslipidemia: Status: Chronic (5) COPD exacerbation: Status: Acute (6) Type 2 diabetes mellitus without complications: Status: Chronic Qualifiers: Diabetes mellitus intermediate manager insulin use: without long-term use Qualified Code(s): E11.9 - Type 2 diabetes mellitus without complications (7) Nocturia: Status: Chronic (8) COPD (chronic obstructive pulmonary disease): Status: Chronic (9) Acute kidney injury superimposed on chronic kidney disease: Status: Acute Plan Community-acquired pneumonia Considering leukocytosis he will be given vancomycin and Zosyn Requested a culture, urine antigen for Will request CT chest abdomen pelvis to rule out any underlying cancer Previous visit also showed persistent leukocytosis he has seen Dr. Mahoney outpatient as well, no signs of blast cells on peripheral smear He is afebrile Currently doing well on 2 L nasal cannula I will give him as needed BiPAP for tonight Budesonide twice a day DuoNeb every 4 as needed I would avoid IV steroids because of his persistent leukocytosis Acute on chronic kidney disease Baseline creatinine seems from around 1. 4-1.6 Clinically does not look fluid overloaded Check BNP Avoid IV fluids for now Akathisia restless I have added propanolol 10 mg twice daily low-dose as he is elderly, I have reduced the dose of amiodarone and discontinue metoprolol A. fib without RVR Continue Coumadin Check INR Continue amiodarone Patient is full code Cardiac diet He follows up with Dr. Zhong outpatient for his COPD and Dr. Mendoza for A. 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
[2022-01-29 15:12] LABS: Estmated Average Glucose 111; Hemoglobin A1C 5.5 % (4.0-6.0)
--- NOTE | 2022-01-29 15:12 | CTR_ITS ---
PROCEDURE INFORMATION: Exam: CT Chest Without Contrast; Diagnostic Exam date and time: 01/29/2022 4:59 PM Age: 81 years old Clinical indication: Other: Weakness; Shortness of breath; Prior surgery; Surgery type: Gb; Additional info: Wbc [id number], R/O infection TECHNIQUE: Imaging protocol: Diagnostic computed tomography of the chest without contrast. Radiation optimization: All CT scans at this facility use at least one of these dose optimization techniques: automated exposure control; mA and/or kV adjustment per patient size (includes targeted exams where dose is matched to clinical indication); or iterative reconstruction. COMPARISON: CT chest w con* [id number] 09/28/2018 5:27 AM RADIATION DOSE METRICS: Total DLP (mGy-cm): 133 FINDINGS: Lungs: Mild centrilobular emphysema. [id number] bilateral lower lobe pneumonia with some airspace disease. Pleural spaces: Unremarkable. No pneumothorax. No pleural effusion. Heart: Unremarkable. No cardiomegaly. No pericardial effusion. Lymph nodes: Unremarkable. No enlarged lymph nodes. Vasculature: Unremarkable. No aortic aneurysm. Bones/joints: Severe thoracic spondylosis. Soft tissues: Unremarkable. PROCEDURE INFORMATION: Exam: CT Abdomen And Pelvis Without Contrast Exam date and time: 01/29/2022 4:59 PM Age: 81 years old Clinical indication: Other: Weakness; Shortness of breath; Prior surgery; Surgery type: Gb; Additional info: Wbc [id number], R/O infection TECHNIQUE: Imaging protocol: Computed tomography of the abdomen and pelvis without contrast. Radiation optimization: All CT scans at this facility use at least one of these dose optimization techniques: automated exposure control; mA and/or kV adjustment per patient size (includes targeted exams where dose is matched to clinical indication); or iterative reconstruction. COMPARISON: CR XR hip LT 2-3V wo/w pel* [id number] 12/07/2021 1:26 PM RADIATION DOSE METRICS: Total DLP (mGy-cm): 1339.69 FINDINGS: Liver: Normal. No mass. Gallbladder and bile ducts: Stable cholecystectomy. Pancreas: Normal. No ductal dilation. Spleen: Normal. No splenomegaly. Adrenal glands: Normal. No mass. Kidneys and ureters: Normal. No hydronephrosis. Stomach and bowel: Mild descending and/or sigmoid colon diverticulosis without diverticulitis. Appendix: No evidence of appendicitis. Intraperitoneal space: Unremarkable. No free air. No significant fluid collection. Vasculature: Calcification of the abdominal aorta and/or iliac arteries consistent with atherosclerotic vessel disease. Lymph nodes: Unremarkable. No enlarged lymph nodes. Urinary bladder: Unremarkable as visualized. Reproductive: Unremarkable as visualized. Bones/joints: Left total hip replacement with metallic artifact partially obscuring the pelvic anatomy. Moderate to severe multilevel spine degenerative changes including degenerative disc disease, spondylosis and facet degenerative changes. Soft tissues: Unremarkable. CT/[place] [id number] IMPRESSION: 1. Mild centrilobular emphysema. 2. [id number] bilateral lower lobe pneumonia with some airspace disease. IMPRESSION: No acute findings.
[2022-01-29 15:16] LABS: Procalcitonin 0.78 ng/mL (0-0.5)
[2022-01-29] MEDS: propranolol 20 mg Tablet 10 MG PO (15:18)
[2022-01-29] MEDS: warfarin 3 mg Tablet PO (15:19)
[2022-01-29 16:06] LABS: Lactic Sepsis W/Reflex 0.9 mmol/L (0.5-2.2)
--- NOTE | 2022-01-29 16:10 | PC.NURSE ---
received into room 277-2 from er via stretcher.report received.pt is alert and awake x 4.denies pain at present.on cardizem drip for afib/flutter w/rvr.rate controlled.oriented to room environment.instructed to notify staff for any sob,cp or for any concerns at all.pt verb understanding of instructions
[2022-01-29 16:17] LABS: Troponin 5 2HR 9.67 ng/L (0-15)
[2022-01-29] MEDS: ipratropium-albuterol 3 mL Neb INHALATION ×2 (16:36→20:02)
[2022-01-29] MEDS: piperacillin-tazobactam 3.375 GM in sodium chloride 0.9% (plus) 50 ML IV ×2 (16:38→23:33)
[2022-01-29 16:57] LABS: Amphetamines Screen Urine Negative (Negative); Barbiturates Screen Urine Negative (Negative); Benzodiazepines Screen Urine Negative (Negative); Cocaine Screen Urine Negative (Negative); Opiate Screen Urine Positive (Negative); PCP Screen Urine Negative (Negative); THC Screen Urine Negative (Negative)
[2022-01-29] MEDS: sennosides-docusate Tablet 1 TAB PO (17:33)
[2022-01-29 17:53] LABS: Glucose Point of Care 134 mg/dL (70-110)
[2022-01-29 19:05] LABS: Troponin 5 6HR 27.77 ng/L (0-15)
[2022-01-29 19:07] LABS: Troponin 5 6HR Delta -2.23 ng/L (0-12)
[2022-01-29] MEDS: budesonide 0.5 mg/2 mL Neb INHALATION (20:01)
[2022-01-29] MEDS: atorvastatin 40 mg Tablet 20 MG PO (20:19)
[2022-01-29] MEDS: ALPRAZolam 0.5 mg Tablet PO (20:19)
[2022-01-29] MEDS: tamsulosin 0.4 mg Capsule PO (20:21)
[2022-01-29] MEDS: amiodarone 200 mg Tablet 100 MG PO (20:21)
[2022-01-29 20:46] LABS: Glucose Point of Care 122 mg/dL (70-110)
[2022-01-30] VITALS (16 sets, daily range): BP systolic 110–127; BP diastolic 58–81; PULSE 44–83; RESP 16–22; TEMP 36.1–37.1; O2SAT 93–99
[2022-01-30] MEDS: famotidine 20 mg/2 mL INJ IVP ×2 (01:50→15:31)
[2022-01-30 04:46] LABS: Hematocrit 38.6 % (42.0-52.0); Hemoglobin 12.2 g/dL (11.7-16.6); Mean Corpuscular HGB Conc 31.6 g/dL (30.0-36.0); Mean Corpuscular Hemoglobin 30.7 pg (28.0-34.0); Mean Corpuscular Volume 97.2 fl (80-94); Mean Platelet Volume 9.8 fL (7.4-10.4); Platelet Count 207 10^3/cmm (130-400); Red Blood Count 3.97 10^6/uL (4.1-5.3); Red Cell Distribution Width 13.5 % (12.1-15.1); White Blood Count 27.9 10^3/uL (4.0-10.0)
[2022-01-30 04:54] LABS: INR 1.97 (0.8-1.2)
[2022-01-30 05:11] LABS: Anion Gap 12.3 (5-19); Blood Urea Nitrogen 38 mg/dL (8-23); Calcium 8.4 mg/dL (8.5-10.5); Carbon Dioxide 27 mmol/L (22-29); Chloride 102 mmol/L (98-107); Glucose 130 mg/dL (65-115); Magnesium 1.8 mg/dL (1.7-2.3); Osmolality Calculated 295 mOsm/kg (285-295); Phosphorus 2.9 mg/dL (2.5-4.5); Potassium 4.3 mmol/L (3.5-5.1); Sodium 137 mmol/L (136-145)
[2022-01-30] MEDS: allopurinol 300 mg Tablet 150 MG PO (05:16)
[2022-01-30] MEDS: citalopram 20 mg Tablet PO (05:17)
[2022-01-30 05:58] LABS: Absolute Eosinophils 1.3 10^3/cmm (0.0-0.7); Absolute Neutrophil 16.2 10^3/cmm (1.4-6.5); Absolute Segmented Neutrophil 16.2 10/cmm (1.6-7.1); Eosinophils 5 %; Lymphocytes 30 %; Lymphocytes Absolute 9.5 10^3/cmm (1.2-3.4); Monocytes Absolute 0.8 10^3/cmm (0.1-0.6); Platelet Estimate Normal (Normal); Segmented Neutrophils 58 %; Smudge Cells Trace; Total Cells Counted 100 (0-100)
[2022-01-30 06:28] LABS: Glucose Point of Care 105 mg/dL (70-110)
[2022-01-30] MEDS: budesonide 0.5 mg/2 mL Neb INHALATION ×2 (07:57→20:32)
[2022-01-30] MEDS: ipratropium-albuterol 3 mL Neb INHALATION ×4 (07:57→20:32)
[2022-01-30] MEDS: piperacillin-tazobactam 3.375 GM in sodium chloride 0.9% (plus) 50 ML IV ×3 (08:15→23:37)
[2022-01-30] MEDS: propranolol 20 mg Tablet 10 MG PO ×2 (08:22→17:29)
[2022-01-30] MEDS: sennosides-docusate Tablet 1 TAB PO ×2 (08:22→17:27)
--- NOTE | 2022-01-30 09:56 | PC.CHAP ---
Pastoral Care Encounter/Spiritual Assessment Type of Contact [] Declined finance analyst visit [] Patient/Family/Request visit [] Outpatient visit [] Follow-up visit [] Physician referral [] Code/Alert [x] Routine visit [] Staff referral [] Actively dying [x] Patient sleeping [] Family support [] [] Out of room [] Palliative care [] [] Receiving care in room [] Pre-surgical visit [] Trauma [] Long length of stay [] ICU visit [] Other: Relational/Emotional Strength [] Patient feels connected with others/family/visitors/staff [] Distress [] Loneliness/isolation [] Abandonment Spirituality of Patient [] Person of Shefali [] Attends Synagogue of their Shefali [] Believes in Prayer [] Reads Bible or Cheondoism materials [] There are Spiritual issues to be addressed Malted Milk Mixer Interventions [] Prayer [] Active listening [] Non-anxious presence [] Spiritual/emotional support [] Crisis/trauma care [] Spiritual counseling [] Bereavement support [] Provided bereavement packet [] Provided Bible/devotional materials [] Provided toy/stuffed animal, coloring book to patient or family member [] Provided Communion [] Anointing/Bells [] Salvation [] Completed spiritual assessment [] Other: Impact on Illness or Injury [] Angry [] Fearful [] Anxious [] Often cries [] Exhaustion [] Unable to work [] Unable to attend methodist [] Unable to walk/stand [] Unable to read [] Unable to drive [] Unable to eat/drink [] Unable to sleep [] Unable to be with family [] Patient intubated [] Other: Summary Time spent with patient
--- NOTE | 2022-01-30 10:31 | USCV_ITS ---
Jesús Cole Age: 81 Gender: M : 1940 Exam Date: 01/30/2022 11:21 Ordering Phys: Je Rodriguez MD Technologist: Bayron Lobato [place]am [place] [facility] [place] Indication: bilat edema PROCEDURES: The venous duplex Doppler examination of both lower extremities was performed in the standard fashion. The following venous structures were evaluated: common femoral vein, profunda vein, proximal portion of the greater saphenous vein, superficial femoral vein, and the popliteal vein. In addition, the posterior tibial and peroneal trunk were evaluated. FINDINGS: Normal 2-D Doppler and augmentation and compressibility throughout the lower extremity venous structures. Additional imaging through the proximal calf veins also reveals no thrombus. Limited evaluation of the greater saphenous vein is patent with no thrombus. CONCLUSIONS No DVT bilateral lower extremities. Dr. Ana Chen DO (Electronically Signed) Final Date: 30 January 2022 13:15 S
[2022-01-30] MEDS: insulin lispro 100 unit/1 mL SUBCUT ×3 (12:01→20:34)
[2022-01-30 12:35] LABS: Add Urine Microscopic? NO; Charge for UA Resulting for Rev
[2022-01-30 12:54] LABS: Bilirubin Urine Neg (Negative); Blood Urine Neg (Negative); Glucose Urine UA Norm (Normal); Ketones Urine Negative (Negative); Leukocyte Esterase Urine Negative (Negative); Nitrate Urine Negative (Negative); Protein Urine Neg (Negative); Specific Gravity, Urine 1.005 (1.005-1.030); Urine Appearance Clear (CLEAR); Urine Color Colorless (Yellow); Urobilinogen Urine Norm (Negative); pH Urine 7 (5-7)
--- NOTE | 2022-01-30 13:05 | P.PN_ITS ---
Subjective Subjective: Patient was seen this morning at bedside, he does complain of persistent wheezing, shortness of breath, no fevers overnight, has a cough, Vitals/I&O/Wt Last Vital Signs Temp 97.7 F 01/30/22 04:00 Pulse 71 01/30/22 11:19 Resp 20 H 01/30/22 11:15 BP 127/81 01/30/22 08:00 Pulse Ox 94 01/30/22 11:15 01/29/22 01/30/22 01/30/22 22:59 06:59 14:59 Intake Total 1476.875 / 1476.875 50 / 1526.875 410 / 410 Output Total 100 / 100 350 / 450 Balance 1376.875 / 1376.875 -300 / 1076.875 410 / 410 Weight last 48 hrs Weight 82.809 kg Weight 81.193 kg Physical Exam Const: COMMON NORMALS: no acute distress and patient oriented x3 Resp: COMMON NORMALS: normal respiratory effort, No retractions and No use of accessory muscles AUSCULTATION: wheezes Cardio: COMMON NORMALS: regular rate, regular rhythm, S1 normal heart sound present and S2 normal heart sound present RATE: regular rate RHYTHM: r egular rhythm HEART SOUNDS: S1 normal heart sound present and S2 normal heart sound present GI: COMMON NORMALS: Normal to inspection, nondistended, normoactive bowel sounds present, Soft to palpation and non-tender PALPATION: Yes Soft to palpation Extremity: COMMON NORMALS: no pedal edema Neuro: COMMON NORMALS: patient oriented x3 Data : 01/30/22 04:20 01/30/22 04:20 Micro: Microbiology 01/29/22 16:30 Legionella Urinary Antigen - Final Urine,Voided Bacterial Antigens - Final 01/29/22 15:29 Blood Culture - Preliminary Blood SPECIMEN COLLECTED 01/29/22 15:25 Blood Culture - Preliminary Blood SPECIMEN COLLECTED A&P Assessment and plan (1) Atrial flutter with rapid ventricular response: Status: Acute (2) Pneumonia: Status: Acute (3) Behavior-irritability: Status: Acute (4) Dyslipidemia: Status: Chronic (5) COPD exacerbation: Status: Acute (6) Type 2 diabetes mellitus without complications: Status: Chronic Qualifiers: Diabetes mellitus care home insulin use: without principal automation engineer use Qualified Code(s): E11.9 - Type 2 diabetes mellitus without complications (7) Nocturia: Status: Chronic (8) COPD (chronic obstructive pulmonary disease): Status: Chronic (9) Acute kidney injury superimposed on chronic kidney disease: Status: Acute Plan Community-acquired pneumonia Continue vancomycin and Zosyn Requested a culture, urine bacterial antigens CT chest shows mild to moderate bilateral lower lobe pneumonia with some airspace disease Previous visit also showed persistent leukocytosis he has seen Dr. Mahoney outpatient as well, no signs of blast cells on peripheral smear He is afebrile Currently on 1 L nasal cannula I will give him as needed BiPAP for tonight Budesonide twice a day DuoNeb every 4 as needed Given persistent wheezing, will give him 1 dose of steroids today Order venous ultrasound for possible DVT, although is on anticoagulation, current INR 1.97 Acute on chronic kidney disease Baseline creatinine seems from around 1. 4-1.6 Clinically does not look fluid overloaded BNP 1201 Avoid IV fluids for now Akathisia restless I have added propanolol 10 mg twice daily low-dose as he is elderly, I have reduced the dose of amiodarone and discontinue metoprolol A. fib without RVR, resolved Continue Coumadin 1.97 Continue amiodarone Patient is full code Cardiac diet He follows up with Dr. Zhong outpatient for his COPD and Dr. Mendoza for A. fib Attestations Medical Necessity Statement*: Patient requires hospitalization for community- acquired pneumonia, requiring IV antibiotics, and also central lobar emphysema, will give steroids Coding Level of Care Code Acute Spring Former Hand for [facility] Fwd Diagnoses Atrial flutter with rapid ventricular response I48.92 Pneumonia J18.9 Behavior-irritability R45.4 Dyslipidemia E78.5 COPD exacerbation J44.1 Type 2 diabetes mellitus without complications E11.9 Diabetes mellitus care home insulin use: without care home use Nocturia R35.1 COPD (chronic obstructive pulmonary disease) J44.9 Acute kidney injury superimposed on chronic kidney disease N17.9; N18.9
[2022-01-30 13:11] LABS: Glucose Point of Care 161 mg/dL (70-110)
[2022-01-30] MEDS: warfarin 2 mg Tablet PO (15:25)
[2022-01-30] MEDS: vancomycin 1,000 MG in sodium chloride 0.9% 250 ML 250 MG IV (15:27)
[2022-01-30 16:14] LABS: ABG PCO2 40.9 mmHg (35-45); ABG PH Result 7.38 (7.35-7.45); Arterial Blood Gas Hematocrit 37.8 % (42-52); Base Excess ABG -0.7 mmol/L (-2.0-2.0); Blood Gas Allen Test Pos; Blood Gas Operator Identificat MONRO; Blood Gas Sample Site Radial, left; Blood Gas Sample Type Arterial; HCO3 ABG 24.4 mmol/L (22-26); Oxygen Device NC; PO2 ABG 89.9 mmHg (80.0-100.0)
[2022-01-30 17:09] LABS: Glucose Point of Care 167 mg/dL (70-110)
[2022-01-30] MEDS: aspirin 81 mg EC Tablet PO (17:27)
[2022-01-30 20:15] LABS: Glucose Point of Care 276 mg/dL (70-110)
[2022-01-30] MEDS: amiodarone 200 mg Tablet 100 MG PO (20:34)
[2022-01-30] MEDS: atorvastatin 40 mg Tablet 20 MG PO (20:35)
[2022-01-30] MEDS: tamsulosin 0.4 mg Capsule PO (20:35)
[2022-01-31] VITALS (16 sets, daily range): BP systolic 123–140; BP diastolic 64–92; PULSE 47–82; RESP 14–23; TEMP 36.3–36.7; O2SAT 92–98
[2022-01-31] MEDS: citalopram 20 mg Tablet PO (03:43)
[2022-01-31] MEDS: allopurinol 300 mg Tablet 150 MG PO (03:43)
[2022-01-31] MEDS: famotidine 20 mg/2 mL INJ IVP ×2 (03:43→14:42)
[2022-01-31] MEDS: ipratropium-albuterol 3 mL Neb INHALATION ×6 (04:22→23:38)
[2022-01-31] MEDS: budesonide 0.5 mg/2 mL Neb INHALATION ×2 (08:12→20:28)
[2022-01-31] MEDS: propranolol 20 mg Tablet 10 MG PO ×2 (09:06→18:08)
[2022-01-31] MEDS: piperacillin-tazobactam 3.375 GM in sodium chloride 0.9% (plus) 50 ML IV ×3 (09:06→23:37)
[2022-01-31] MEDS: aspirin 81 mg EC Tablet PO (09:07)
[2022-01-31] MEDS: sennosides-docusate Tablet 1 TAB PO ×2 (09:07→18:08)
[2022-01-31] MEDS: ALPRAZolam 0.5 mg Tablet PO (10:19)
[2022-01-31 10:37] LABS: Hemoglobin 13.2 g/dL (11.7-16.6); Mean Corpuscular Hemoglobin 30.7 pg (28.0-34.0); Mean Platelet Volume 10.1 fL (7.4-10.4); Platelet Count 240 10^3/cmm (130-400); Red Cell Distribution Width 13.2 % (12.1-15.1); White Blood Count 28.9 10^3/uL (4.0-10.0)
[2022-01-31 10:46] LABS: INR 2.36 (0.8-1.2)
[2022-01-31 10:54] LABS: Anion Gap 16.5 (5-19); Blood Urea Nitrogen 53 mg/dL (8-23); Calcium 9.1 mg/dL (8.5-10.5); Carbon Dioxide 22 mmol/L (22-29); Chloride 101 mmol/L (98-107); Glucose 226 mg/dL (65-115); Osmolality Calculated 301 mOsm/kg (285-295); Potassium 4.5 mmol/L (3.5-5.1); Sodium 135 mmol/L (136-145)
[2022-01-31 11:08] LABS: Absolute Segmented Neutrophil 16.8 10/cmm (1.6-7.1); Band Neutrophils Absolute 0.3 10^3/cmm (0.0-1.2); Segmented Neutrophils 58 %; Total Cells Counted 100 (0-100)
[2022-01-31 11:09] LABS: Absolute Neutrophil 17.1 10^3/cmm (1.4-6.5); Lymphocytes 40 %; Microcytosis Trace; Monocytes Absolute 0.3 10^3/cmm (0.1-0.6); Platelet Estimate Normal (Normal); Smudge Cells Trace
[2022-01-31] MEDS: vancomycin 1,000 MG in sodium chloride 0.9% 250 ML 250 MG IV (14:40)
[2022-01-31] MEDS: warfarin 3 mg Tablet PO (14:42)
--- NOTE | 2022-01-31 16:31 | PM.PN ---
Subjective Subjective: Patient was seen this morning, he tells me that his wheezing has improved, he still remains quite sleepy during the day but overall improved, he is wondering if physical therapy will get up and walk him because he is only got up to the side of the bed or into a chair, no fevers overnight Vitals/I&O/Wt Last Vital Signs Temp 97.5 F L 01/31/22 16:00 Pulse 82 01/31/22 16:00 Resp 16 01/31/22 16:00 BP 129/92 01/31/22 16:00 Pulse Ox 98 01/31/22 16:00 01/31/22 01/31/22 01/31/22 06:59 14:59 22:59 Intake Total 170 / 1300 290 / 290 250 / 540 Balance 170 / 1100 290 / 290 250 / 540 Physical Exam Const: COMMON NORMALS: no acute distress and patient oriented x3 Resp: COMMON NORMALS: normal respiratory effort, No retractions, No use of accessory muscles and clear to auscultation bilaterally AUSCULTATION: clear to auscultation bilaterally Cardio: COMMON NORMALS: regular rate, regular rhythm, S1 normal heart sound present and S2 normal heart sound present RATE: regular rate RHYTHM: regular rhythm HEART SOUNDS: S1 normal heart sound present and S2 normal heart sound present GI: COMMON NORMALS: Normal to inspection, nondistended, normoactive bowel sounds present, Soft to palpation and non-tender PALPATION: Yes Soft to palpation Extremity: COMMON NORMALS: no pedal edema Neuro: COMMON NORMALS: patient oriented x3 Psych: COMMON NORMALS: mental status grossly normal Data : 01/31/22 10:15 01/31/22 10:15 Micro: Microbiology 01/31/22 08:35 Gram Stain - Final Sputum - Expectorated Sputum 01/29/22 15:29 Blood Culture - Preliminary Blood NEGATIVE TO DATE 01/29/22 15:25 Blood Culture - Preliminary Blood NEGATIVE TO DATE 01/29/22 15:45 MRSA Culture - Final Nose A&P Assessment and plan (1) Atrial flutter with rapid ventricular response: Status: Acute (2) Pneumonia: Status: Acute (3) Behavior-irritability: Status: Acute (4) Dyslipidemia: Status: Chronic (5) COPD exacerbation: Status: Acute (6) Type 2 diabetes mellitus without complications: Status: Chronic Qualifiers: Diabetes mellitus ferry terminal supervisor insulin use: without ferry terminal supervisor use Qualified Code(s): E11.9 - Type 2 diabetes mellitus without complications (7) Nocturia: Status: Chronic (8) COPD (chronic obstructive pulmonary disease): Status: Chronic (9) Acute kidney injury superimposed on chronic kidney disease: Status: Acute Plan Community-acquired pneumonia Continue vancomycin and Zosyn Requested a culture, urine bacterial antigens CT chest shows mild to moderate bilateral lower lobe pneumonia with some airspace disease Previous visit also showed persistent leukocytosis he has seen Dr. Mahoney outpatient as well, no signs of blast cells on peripheral smear He is afebrile Currently on 1 L nasal cannula I will give him as needed BiPAP Budesonide twice a day DuoNeb every 4 as needed Given persistent wheezing, continue steroids Venous ultrasound negative for DVT, although is on anticoagulation, monitor INR Acute on chronic kidney disease Baseline creatinine seems from around 1. 4-1.6 Clinically does not look fluid overloaded Avoid IV fluids for now Akathisia restless I have added propanolol 10 mg twice daily low-dose as he is elderly, I have reduced the dose of amiodarone and discontinue metoprolol A. fib without RVR, resolved Continue Coumadin Continue amiodarone Patient is full code Cardiac diet He follows up with Dr. Zhong outpatient for his COPD and Dr. Mendoza for A. 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
[2022-01-31] MEDS: insulin lispro 100 unit/1 mL SUBCUT ×2 (18:08→21:01)
[2022-01-31] MEDS: amiodarone 200 mg Tablet 100 MG PO (21:00)
[2022-01-31] MEDS: tamsulosin 0.4 mg Capsule PO (21:00)
[2022-01-31] MEDS: atorvastatin 40 mg Tablet 20 MG PO (21:00)
[2022-02-01] VITALS (11 sets, daily range): BP systolic 118–141; BP diastolic 79–87; PULSE 63–81; RESP 13–18; TEMP 36.4–36.7; O2SAT 93–97
[2022-02-01] MEDS: allopurinol 300 mg Tablet 150 MG PO (02:42)
[2022-02-01] MEDS: citalopram 20 mg Tablet PO (02:42)
[2022-02-01] MEDS: famotidine 20 mg/2 mL INJ IVP (02:42)
[2022-02-01 02:52] LABS: Basophils % 0.1 %; Hematocrit 38.8 % (42.0-52.0); Hemoglobin 12.4 g/dL (11.7-16.6); Lymphocytes # 8.3 10^3/uL (0.8-4.8); Lymphocytes % 30.1 %; Mean Corpuscular Hemoglobin 30.5 pg (28.0-34.0); Mean Corpuscular Volume 95.3 fl (80-94); Mean Platelet Volume 10.2 fL (7.4-10.4); Monocytes # 0.7 10^3/uL (0.2-0.9); Monocytes % 2.6 %; Neutrophils # 18.21 10^3/uL (1.8-7.7); Neutrophils % 66.4 %; Nucleated Red Blood Cells % 0 %; Platelet Count 247 10^3/cmm (130-400); Red Blood Count 4.07 10^6/uL (4.1-5.3); Red Cell Distribution Width 13.1 % (12.1-15.1); White Blood Count 27.4 10^3/uL (4.0-10.0)
[2022-02-01 04:32] LABS: INR 2.98 (0.8-1.2)
[2022-02-01 04:37] LABS: Anion Gap 13.7 (5-19); Blood Urea Nitrogen 51 mg/dL (8-23); Calcium 8.9 mg/dL (8.5-10.5); Carbon Dioxide 25 mmol/L (22-29); Chloride 101 mmol/L (98-107); Glucose 151 mg/dL (65-115); Osmolality Calculated 297 mOsm/kg (285-295); Potassium 4.7 mmol/L (3.5-5.1); Sodium 135 mmol/L (136-145)
[2022-02-01 05:47] LABS: Slide Review Slide Review Perform
[2022-02-01 07:16] LABS: Glucose Point of Care 233 mg/dL (70-110)
[2022-02-01 07:16] LABS: Glucose Point of Care 203 mg/dL (70-110)
[2022-02-01 07:16] LABS: Glucose Point of Care 267 mg/dL (70-110)
[2022-02-01 07:16] LABS: Glucose Point of Care 157 mg/dL (70-110)
[2022-02-01 07:16] LABS: Glucose Point of Care 221 mg/dL (70-110)
[2022-02-01] MEDS: budesonide 0.5 mg/2 mL Neb INHALATION (07:57)
[2022-02-01] MEDS: ipratropium-albuterol 3 mL Neb INHALATION ×2 (07:57→11:26)
[2022-02-01] MEDS: piperacillin-tazobactam 3.375 GM in sodium chloride 0.9% (plus) 50 ML IV (09:13)
[2022-02-01] MEDS: aspirin 81 mg EC Tablet PO (09:13)
[2022-02-01] MEDS: propranolol 20 mg Tablet 10 MG PO (09:13)
[2022-02-01] MEDS: sennosides-docusate Tablet 1 TAB PO (09:14)
[2022-02-01] MEDS: insulin lispro 100 unit/1 mL SUBCUT ×2 (09:14→12:49)
[2022-02-01 11:25] LABS: Glucose Point of Care 239 mg/dL (70-110)
--- NOTE | 2022-02-01 12:28 | PC.SOCIAL ---
IMM UPdate Copy of page 2 updated with patient and left at bedside. Patient verbalized understanding. Chart updated, initialed, dated and timed.
--- NOTE | 2022-02-01 12:46 | P.DS_ITS ---
Discharge Providers Date of Admission: 01/29/22 12:53 Date of Discharge: February 01, 2022 Attending Provider at Admission: Jeni Garcia MD Attending Provider at Discharge: Je Rodriguez MD Primary Care Provider: Autumn Pierre DO Diagnoses at Discharge Discharge Diagnosis (1) Atrial flutter with rapid ventricular response: Status: Acute (2) Pneumonia: Status: Acute (3) Behavior-irritability: Status: Acute (4) Dyslipidemia: Status: Chronic (5) COPD exacerbation: Status: Acute (6) Type 2 diabetes mellitus without complications: Status: Chronic Qualifiers: Diabetes mellitus correction insulin use: without correction use Qualified Code(s): E11.9 - Type 2 diabetes mellitus without complications (7) Nocturia: Status: Chronic (8) COPD (chronic obstructive pulmonary disease): Status: Chronic (9) Acute kidney injury superimposed on chronic kidney disease: Status: Acute Reason for Visit Reason for Visit: having problems with lungs and walking Hospital Course Hospital Course This is a 81-year-old male with a history of recent left bipolar hip arthroplasty, COPD, who presents [facility] due to complaints for shortness of breath Patient was noted to [facility] for community-acquired pneumonia, COPD exacerbation treated with broad-spectrum antibiotic therapy, steroid therapy, inhaler therapy, clinically monitored. Patient clinically improved, discharged with doxycycline, prednisone burst, with close follow-up with primary care provider as outpatient Patient INR on discharge 2.8, follow-up with primary care provider on Sunday for recheck INR Physical Exam Const: COMMON NORMALS: no acute distress and patient oriented x3 Resp: COMMON NORMALS: normal respiratory effort, No retractions, No use of accessory muscles and clear to auscultation bilaterally AUSCULTATION: clear to auscultation bilaterally Cardio: COMMON NORMALS: regular rate, regular rhythm, S1 normal heart sound present and S2 normal heart sound present RATE: regular rate RHYTHM: regular rhythm HEART SOUNDS: S1 normal heart sound present and S2 normal heart sound present GI: COMMON NORMALS: Normal to inspection, nondistended, normoactive bowel sounds present, Soft to palpation and non-tender PALPATION: Yes Soft to palpation Extremity: COMMON NORMALS: no pedal edema Neuro: COMMON NORMALS: patient oriented x3 Psych: COMMON NORMALS: mental status grossly normal Discharge Data Studies Completed and Pending Completed Studies During Hospitalization Category Date Time Status CT chest abdomen pelvis [[place] [id number] Cat Scan 01/29/22 15:12 Completed ] Urgent CT head wo con* [id number] Urgent Cat Scan 01/29/22 09:53 Completed XR chest 2V* [id number] Urgent Exams 01/29/22 09:55 [place] [id number] Stat Ultrasound 01/30/22 10:31 Completed CV. echo complete* [id number] Routine Ultrasound 01/29/22 14:18 Completed Pending at discharge Category Date Time Status Blood Culture Routine Lab 01/29/22 15:29 Results Sputum Culture and Gram Stain Stat Lab 01/31/22 08:35 Results Vancomycin Trough Timed Lab 02/01/22 14:00 Ordered Radiology Impressions Head CT 01/29/22 09:53 IMPRESSION: No acute intracranial abnormality. Chest X-Ray 01/29/22 09:55 IMPRESSION: Bibasilar infiltrates. Chest/Abdomen/Pelvis CT 01/29/22 15:12 IMPRESSION: 1. Mild centrilobular emphysema. 2. Dynm-hm-wmfftyoa bilateral lower lobe pneumonia with some airspace disease. IMPRESSION: No acute findings. Laboratory Results WBC 27.4 10^3/uL (4.0-10.0) H 02/01/22 02:22 RBC 4.07 10^6/uL (4.1-5.3) L 02/01/22 02:22 Hgb 12.4 g/dL (11.7-16.6) 02/01/22 02:22 Hct 38.8 % (42.0-52.0) L 02/01/22 02:22 MCV 95.3 fl (80-94) H 02/01/22 02:22 MCH 30.5 pg (28.0-34.0) 02/01/22 02:22 MCHC 32.0 g/dL (30.0-36.0) 02/01/22 02:22 RDW 13.1 % (12.1-15.1) 02/01/22 02:22 Plt Count 247 10^3/cmm (130-400) 02/01/22 02:22 MPV 10.2 fL (7.4-10.4) 02/01/22 02:22 Neut % (Auto) 66.4 % 02/01/22 02:22 Lymph % (Auto) 30.1 % 02/01/22 02:22 [place] % (Auto) 2.6 % 02/01/22 02:22 Eos % (Auto) 0.0 % 02/01/22 02:22 Baso % (Auto) 0.1 % 02/01/22 02:22 Neut # (Auto) 18.21 10^3/uL (1.8-7.7) H 02/01/22 02:22 Lymph # (Auto) 8.3 10^3/uL (0.8-4.8) H 02/01/22 02:22 [place] # (Auto) 0.7 10^3/uL (0.2-0.9) 02/01/22 02:22 Eos # (Auto) 0.0 10^3/uL (0.0-0.8) 02/01/22 02:22 Baso # (Auto) 0.0 10^3/uL (0.0-0.1) 02/01/22 02:22 Nucleated RBC % (auto) 0 % 02/01/22 02:22 Total Counted 100 (0-100) 01/31/22 10:15 Atypical Lymphs % Not Reportable 01/31/22 10:15 Absolute Neutrophils 17.1 10^3/cmm (1.4-6.5) H 01/31/22 10:15 Segmented Neutrophils 58 % 01/31/22 10:15 Abs Segm Neuts (Man) 16.8 10/cmm (1.6-7.1) H 01/31/22 10:15 Band Neutrophils 1.0 % 01/31/22 10:15 Abs Band Neuts (Man) 0.3 10^3/cmm (0.0-1.2) 01/31/22 10:15 Absolute Lymphocytes 9.5 10^3/cmm (1.2-3.4) H 01/30/22 04:20 Lymphocytes (Manual) 40 % 01/31/22 10:15 Monocytes (Manual) 1.0 % 01/31/22 10:15 Absolute Monocytes 0.3 10^3/cmm (0.1-0.6) 01/31/22 10:15 Eosinophils (Manual) Not Reportable 01/31/22 10:15 Absolute Eosinophils 1.3 10^3/cmm (0.0-0.7) H 01/30/22 04:20 Basophils (Manual) Not Reportable 01/31/22 10:15 Absolute Basophils 0.0 10^3/cmm (0.0-0.2) 01/30/22 04:20 Nucleated RBCs # 0.0 /100WBC 02/01/22 02:22 Smudge Cells Trace 01/31/22 10:15 Platelet Estimate Normal (Normal) 01/31/22 10:15 Microcytosis Trace 01/31/22 10:15 PT 31.30 SECONDS (12.1-14.9) H 02/01/22 02:22 INR 2.98 (0.8-1.2) H 02/01/22 02:22 Specimen Type Arterial 01/30/22 16:02 Sample Site Radial, left 01/30/22 16:02 ABG pH 7.38 (7.35-7.45) 01/30/22 16:02 ABG pCO2 40.9 mmHg (35-45) 01/30/22 16:02 ABG pO2 89.9 mmHg (80.0-100.0) 01/30/22 16:02 ABG HCO3 24.4 mmol/L (22-26) 01/30/22 16:02 ABG Base Excess -0.7 mmol/L (-2.0-2.0) 01/30/22 16:02 Hema Test Pos 01/30/22 16:02 Hematocrit 37.8 % (42-52) L 01/30/22 16:02 O2 Delivery Device Nc 01/30/22 16:02 O2 Liters/Min 3.0 % 01/30/22 16:02 FiO2 32.0 % 01/30/22 16:02 Inbound Customer Service Representative ID Haroonro 01/30/22 16:02 Sodium 135 mmol/L (136-145) L 02/01/22 02:22 Potassium 4.7 mmol/L (3.5-5.1) 02/01/22 02:22 Chloride 101 mmol/L (98-107) 02/01/22 02:22 Carbon Dioxide 25 mmol/L (22-29) 02/01/22 02:22 Anion Gap 13.7 (5-19) 02/01/22 02:22 BUN 51 mg/dL (8-23) H 02/01/22 02:22 Creatinine 1.5 mg/dL (0.7-1.2) H 02/01/22 02:22 GFR Calculation Not Reportable 02/01/22 02:22 Glucose 151 mg/dL (65-115) H 02/01/22 02:22 POC Glucose 239 mg/dL (70-110) H 02/01/22 11:17 Estimat Average Glucose 111 01/29/22 10:40 Hemoglobin A1c 5.5 % (4.0-6.0) 01/29/22 10:40 Calculated Osmolality 297 mOsm/kg (285-295) H 02/01/22 02:22 Lactic Acid 0.9 mmol/L (0.5-2.2) 01/29/22 15:25 Lactate 0.8 mmol/L (0.5-2.2) 01/29/22 12:34 Calcium 8.9 mg/dL (8.5-10.5) 02/01/22 02:22 Phosphorus 2.9 mg/dL (2.5-4.5) 01/30/22 04:20 Magnesium 2.0 mg/dL (1.7-2.3) 02/01/22 02:22 Total Bilirubin 0.7 mg/dL (0.15-1.2) 01/29/22 12:34 AST 17 U/L (0-40) 01/29/22 12:34 ALT 23 U/L (0-41) 01/29/22 12:34 Alkaline Phosphatase 112 IU/L (40-130) 01/29/22 12:34 Troponin T Baseline 30 ng/L (0-15) H 01/29/22 12:34 Troponin T 120 Minute 9.67 ng/L (0-15) 01/29/22 15:25 Delta Troponin T -20.33 ABS# (0-10) L 01/29/22 15:25 Troponin T Hi Sens 6Hr 27.77 ng/L (0-15) H 01/29/22 18:29 Troponin T Hi Sens 6Hr Delta -2.23 ng/L (0-12) L 01/29/22 18:29 NT-Pro-B Natriuret Pep 1201 pg/mL (0-450) H 01/29/22 12:34 NT-Pro-B Natriuret Pep Cancelled 01/29/22 12:34 Total Protein 5.9 g/dL (6.6-8.7) L 01/29/22 12:34 Albumin 3.3 g/dL (3.5-5.2) L 01/29/22 12:34 Globulin 2.6 g/dL (1.3-4.6) 01/29/22 12:34 Triglycerides 70 mg/dL (0-150) 01/29/22 12:34 Cholesterol 99 mg/dL (0-200) 01/29/22 12:34 LDL Cholesterol, Calc 39 mg/dL (50-129) L 01/29/22 12:34 HDL Cholesterol 46 mg/dL (60-100) L 01/29/22 12:34 LDL/HDL Ratio 0.85 RATIO (0.00-3.22) 01/29/22 12:34 Cholesterol/HDL Ratio 2.15 mg/dL (1.0-5.00) 01/29/22 12:34 Procalcitonin 0.78 ng/mL (0-0.5) H 01/29/22 12:34 TSH 1.74 uIU/mL (0.27-4.20) 01/29/22 12:34 Urine Color Colorless (Yellow) 01/30/22 12:10 Urine Appearance Clear (CLEAR) 01/30/22 12:10 Urine pH 7 (5-7) 01/30/22 12:10 Ur Specific [place] 1.005 (1.005-1.030) 01/30/22 12:10 Urine Protein Neg (Negative) 01/30/22 12:10 Urine Glucose (UA) Norm (Normal) 01/30/22 12:10 Urine Ketones Negative (Negative) 01/30/22 12:10 Urine Blood Neg (Negative) 01/30/22 12:10 Urine Nitrate Negative (Negative) 01/30/22 12:10 Urine Bilirubin Neg (Negative) 01/30/22 12:10 Urine Urobilinogen Norm mg/dL (Negative) 01/30/22 12:10 Ur Leukocyte Esterase Negative (Negative) 01/30/22 12:10 Urine Opiates Screen Positive ng/mL (Negative) H 01/29/22 16:30 Ur Barbiturates Screen Negative ng/mL (Negative) 01/29/22 16:30 Ur Phencyclidine Scrn Negative ng/mL (Negative) 01/29/22 16:30 Ur Amphetamines Screen Negative ng/mL (Negative) 01/29/22 16:30 U Benzodiazepines Scrn Negative ng/mL (Negative) 01/29/22 16:30 Urine Cocaine Screen Negative ng/mL (Negative) 01/29/22 16:30 U Marijuana (THC) Screen Negative ng/mL (Negative) 01/29/22 16:30 Ethyl Alcohol < 10 mg/dL (0-10) 01/29/22 12:34 Vitals Last Vital Signs Temp 98.1 F 02/01/22 07:33 Pulse 76 02/01/22 11:33 Resp 18 02/01/22 11:29 BP 141/85 02/01/22 11:29 Pulse Ox 94 02/01/22 11:29 O2 Del Method 02/01/22 11:26 O2 Flow Rate 3 01/30/22 15:04 Discharge Plan Discharge Patient Disposition: Home Condition: Stable Prescriptions: New doxycycline hyclate 100 mg tablet 100 mg PO BID 7 Days Qty: 14 0RF prednisone 20 mg tablet 20 mg PO BID 5 Days Qty: 10 0RF Continued PreserVision AREDS-2 250-90-40-1 mg capsule 1 tab PO DAILY ipratropium-albuterol 0.5 mg-3 mg(2.5 mg base)/3 mL solution for nebulization 3 ml inhalation Q6H PRN (Reason: Shortness Of Breath) warfarin 2 mg tablet 2 mg PO DAILY Qty: 90 2RF Protocol: Dose Management Condition: Sunday Dose/Route: 3 mg Instruction: 1 x 3 mg tablet Condition: Sunday Dose/Route: 2 mg Instruction: 1 x 2 mg tablet Condition: Sunday Dose/Route: 3 mg Instruction: 1 x 3 mg tablet Condition: Sunday Dose/Route: 2 mg Instruction: 1 x 2 mg tablet Condition: Dose/Route: 3 mg Instruction: 1 x 3 mg tablet Condition: Sunday Dose/Route: 2 mg Instruction: 1 x 2 mg tablet Condition: Sunday Dose/Route: 3 mg Instruction: 1 x 3 mg tablet Protocol Text: Adjustment Start Date: Sunday01/25/22 INR Value: 2.4 INR Date: 01/23/22 Recheck Date: 02/01/22 citalopram 20 mg tablet 20 mg PO QAM Qty: 90 1RF allopurinol 300 mg tablet 150 mg PO QAM Qty: 90 0RF (DME) front wheeled walker See Rx Instructions .Route .MEDSUPPLY Qty: 1 0RF Rx Instructions: As directed Incruse Ellipta 62.5 mcg/actuation blister with device 1 inh inhalation DAILY Qty: 30 0RF atorvastatin [Lipitor] 20 mg tablet 20 mg PO BEDTIME fluticasone propion-salmeterol [Advair Diskus] 500-50 mcg/dose blister with device 1 inh inhalation BID Rx Instructions: 340 B albuterol sulfate 90 mcg/actuation HFA aerosol inhaler 2 puff inhalation Q4H PRN (Reason: Shortness Of Breath) Tradjenta 5 mg tablet 5 mg PO BEDTIME warfarin 3 mg tablet See Rx Instructions .ROUTE .COMPLEX Protocol: Dose Management Condition: Sunday Dose/Route: 3 mg Instruction: 1 x 3 mg tablet Condition: Sunday Dose/Route: 2 mg Instruction: 1 x 2 mg tablet Condition: Sunday Dose/Route: 3 mg Instruction: 1 x 3 mg tablet Condition: Sunday Dose/Route: 2 mg Instruction: 1 x 2 mg tablet Condition: Dose/Route: 3 mg Instruction: 1 x 3 mg tablet Condition: Sunday Dose/Route: 2 mg Instruction: 1 x 2 mg tablet Condition: Sunday Dose/Route: 3 mg Instruction: 1 x 3 mg tablet Protocol Text: Adjustment Start Date: Sunday01/25/22 INR Value: 2.4 INR Date: 01/23/22 Recheck Date: 02/01/22 Rx Instructions: 2mg po qam on sun,sun, and sun and 3mg po on sun,,,and sun tamsulosin 0.4 mg capsule 0.4 mg PO BEDTIME metoprolol tartrate 25 mg tablet 25 mg PO DAILY PRN (Reason: heartrate) sennosides-docusate sodium [Senna-S] 8.6-50 mg tablet 1 tab-cap PO BID Qty: 60 0RF oxycodone 10 mg tablet 10 mg PO Q8H PRN (Reason: Pain) Changed amiodarone 200 mg tablet 100 mg PO BEDTIME 30 Days Qty: 0 0RF Discontinued hydrochlorothiazide 25 mg tablet 25 mg PO QAM Qty: 90 0RF Discharge Orders: Discharge Order (Routine); Ordered 02/01/22 Ordered By: Je Rodriguez Other Ambulatory Orders: DME: Karl (Order) Location: None Selected Ordered By: Je Rodriguez Referrals: Autumn Pierre DO [Primary Care Provider] - 1-3 days (Recheck INR) Patient Instructions: Opioid Safety Activity Restrictions/Additional Instructions: - Please take steroids and antibiotics as prescribed -Please follow-up with primary care on Sunday -Please continue to ambulate -Please have Dr. Pierre recheck your INR in on Sunday Discharge Attestations Time Spent in Discharge Care*: less than 30 min Quality Metrics Clinical Quality Measures [ No reported AMI, CVA or VTE this stay] Coding Level of Care Code Acute Chg FW DC note Diagnoses Atrial flutter with rapid ventricular response I48.92 Pneumonia J18.9 Behavior-irritability R45.4 Dyslipidemia E78.5 COPD exacerbation J44.1 Type 2 diabetes mellitus without complications E11.9 Diabetes mellitus correction insulin use: without special services agent use Nocturia R35.1 COPD (chronic obstructive pulmonary disease) J44.9 Acute kidney injury superimposed on chronic kidney disease N17.9; N18.9
--- NOTE | 2022-02-01 14:49 | PC.NURSE ---
dc'd pts piv and tele. discharge instructions given to pt and spouse. verbalized understanding. medications waiting at the [facility] pharmacy. no further questions. pt left via wc to private vehicle. walker delivered to bedside and taken with patient
[2022-02-01 15:27] LABS: Vancomycin Trough 10.2 ug/mL (10-15)
== END 2022-02-01 14:49 | disposition home health service (06) | DRG 190 ==
LOC: ER 13:04 → MEDSURG 13:13
PROVIDERS: Physician Assistant; Admitting Provider Internal Medicine; Emergency Provider Emergency Medicine; PCP Family Medicine; Visit Provider Family Medicine
DX: J44.0 Chronic obstructive pulmonary disease with (acute) lower respiratory infection (principal); J18.9 Pneumonia, unspecified organism; N17.9 Acute kidney failure, unspecified; J44.1 Chronic obstructive pulmonary disease with (acute) exacerbation; Z99.81 Dependence on supplemental oxygen; I48.91 Unspecified atrial fibrillation; E11.22 Type 2 diabetes mellitus with diabetic chronic kidney disease; I12.9 Hypertensive chronic kidney disease with stage 1 through stage 4 chronic kidney disease, or unspecified chronic kidney disease; N18.9 Chronic kidney disease, unspecified; E78.5 Hyperlipidemia, unspecified; K21.9 Gastro-esophageal reflux disease without esophagitis; M10.9 Gout, unspecified; Z87.891 Personal history of nicotine dependence; R45.4 Irritability and anger; R35.1 Nocturia; Z96.642 Presence of left artificial hip joint; Z79.01 Long term (current) use of anticoagulants; Z79.51 Long term (current) use of inhaled steroids; Z79.891 Long term (current) use of opiate analgesic; Z79.84 Long term (current) use of oral hypoglycemic drugs
CPT/HCPCS: 36415; 36416; 36600; 70450; 71046; 71250; 74176; 80048; 80053; 80061; 80202; 80306; 80307; 81003; 82803; 82962; 83036; 83605; 83735; 83880; 84100; 84145; 84443; 84484; 85007; 85025; 85610; 86403; 87040; 87070; 87205; 87449; 87641; 93005; 93306; 93970; 94640; 94664; 96365; 96367; 96372; 96375; 97110; 97116; 97161; 97165; 99285; J0610; J1815; J2543; J2920; J2930; J3370; J3490; J7040; J7050; J7626

== ENCOUNTER → 2022-02-03 09:49 | Outpatient (BNVA) | payer MEDICARE, BC, SELFPAY | PROVIDERS: PCP Family Medicine; Visit Provider Internal Medicine Critical Care Medicine | DX: J44.9 Chronic obstructive pulmonary disease, unspecified (principal); I50.30 Unspecified diastolic (congestive) heart failure; I48.0 Paroxysmal atrial fibrillation; Z79.01 Long term (current) use of anticoagulants; N18.9 Chronic kidney disease, unspecified; Z87.891 Personal history of nicotine dependence; I13.0 Hypertensive heart and chronic kidney disease with heart failure and stage 1 through stage 4 chronic kidney disease, or unspecified chronic kidney disease | CPT/HCPCS: 99214 ==

== ENCOUNTER 2022-02-06 12:51 | Oncology outpatient (recurring) (ONCR) | payer MEDICARE, BC, SELFPAY ==
[2022-02-06 13:35] LABS: Basophils # 0.1 10^3/uL (0.0-0.1); Basophils % 0.2 %; Eosinophils % 0.1 %; Hematocrit 43.4 % (42.0-52.0); Hemoglobin 13.9 g/dL (11.7-16.6); Lymphocytes # 12.7 10^3/uL (0.8-4.8); Lymphocytes % 34.8 %; Mean Corpuscular Hemoglobin 30.4 pg (28.0-34.0); Mean Platelet Volume 9.8 fL (7.4-10.4); Monocytes # 1.3 10^3/uL (0.2-0.9); Monocytes % 3.5 %; Neutrophils # 21.28 10^3/uL (1.8-7.7); Neutrophils % 58.3 %; Nucleated Red Blood Cells % 0 %; Platelet Count 375 10^3/cmm (130-400); Red Blood Count 4.57 10^6/uL (4.1-5.3); Red Cell Distribution Width 13.9 % (12.1-15.1)
[2022-02-06 13:40] LABS: INR 4.61 (0.83-1.21); Prothrombin Time (Patient) 43.8 Seconds (12.0-15.1)
[2022-02-06 14:31] LABS: Slide Review Slide Review Perform
[2022-02-06 14:33] LABS: White Blood Count 36.5 10^3/uL (4.0-10.0)
[2022-02-07 13:14] LABS: Alanine Aminotransferase 27 U/L (0-41); Albumin Level 3.3 g/dL (3.5-5.2); Alkaline Phosphatase 114 IU/L (40-130); Anion Gap 13.8 (5-19); Aspartate Amino Transferase 11 U/L (0-40); Blood Urea Nitrogen 43 mg/dL (8-23); Calcium 9.1 mg/dL (8.5-10.5); Carbon Dioxide 30 mmol/L (22-29); Chloride 98 mmol/L (98-107); Globulin 2.4 g/dL (1.3-4.6); Glucose 201 mg/dL (65-115); Lactate Dehydrogenase 188 U/L (135-225); Magnesium 1.9 mg/dL (1.7-2.3); NT Pro B Type Natriuretic Pept 1004 pg/mL (0-450); Osmolality Calculated 301 mOsm/kg (285-295); Potassium 4.8 mmol/L (3.5-5.1); Sodium 137 mmol/L (136-145); Total Bilirubin 0.4 mg/dL (0.15-1.2); Total Protein 5.7 g/dL (6.6-8.7)
== END 2022-03-08 23:59 | disposition home or self-care (01) ==
PROVIDERS: Internal Medicine Cardiovascular Disease; PCP Family Medicine; Visit Provider Internal Medicine Hematology & Oncology
DX: D72.820 Lymphocytosis (symptomatic) (principal); J44.9 Chronic obstructive pulmonary disease, unspecified; J18.9 Pneumonia, unspecified organism; Z79.52 Long term (current) use of systemic steroids; Z87.891 Personal history of nicotine dependence; Z79.01 Long term (current) use of anticoagulants; I48.0 Paroxysmal atrial fibrillation
CPT/HCPCS: 36415; 80048; 80053; 83615; 83735; 83880; 85025; 85610; 99214

== ENCOUNTER → 2022-02-21 15:15 | Outpatient (BNVA) | payer MEDICARE, BC, SELFPAY | PROVIDERS: PCP Family Medicine; Visit Provider Podiatrist Foot & Ankle Surgery | DX: M19.071 Primary osteoarthritis, right ankle and foot (principal); M25.571 Pain in right ankle and joints of right foot | CPT/HCPCS: 20600; 73610; 99204; J1100; J3301; J3490 ==

== ENCOUNTER 2022-03-09 11:55 | Oncology outpatient (recurring) (ONCR) | payer MEDICARE, BC, SELFPAY ==
[2022-03-09 12:40] LABS: Basophils # 0.1 10^3/uL (0.0-0.1); Basophils % 0.3 %; Eosinophils # 0.8 10^3/uL (0.0-0.8); Eosinophils % 4.5 %; Hematocrit 44.3 % (42.0-52.0); Hemoglobin 13.8 g/dL (11.7-16.6); Lymphocytes # 7.1 10^3/uL (0.8-4.8); Lymphocytes % 39.5 %; Mean Corpuscular HGB Conc 31.2 g/dL (30.0-36.0); Mean Corpuscular Hemoglobin 30.2 pg (28.0-34.0); Mean Corpuscular Volume 96.9 fl (80-94); Mean Platelet Volume 9.6 fL (7.4-10.4); Monocytes # 1.1 10^3/uL (0.2-0.9); Monocytes % 6.1 %; Neutrophils # 8.86 10^3/uL (1.8-7.7); Neutrophils % 48.9 %; Nucleated Red Blood Cells % 0 %; Platelet Count 245 10^3/cmm (130-400); Red Blood Count 4.57 10^6/uL (4.1-5.3); Red Cell Distribution Width 14.4 % (12.1-15.1); White Blood Count 18.1 10^3/uL (4.0-10.0)
[2022-03-09 13:03] LABS: Alanine Aminotransferase 19 U/L (0-41); Albumin Level 3.7 g/dL (3.5-5.2); Alkaline Phosphatase 122 U/L (40-130); Anion Gap 12.5 (5-19); Aspartate Amino Transferase 13 U/L (0-40); Blood Urea Nitrogen 31 mg/dL (8-23); Carbon Dioxide 29 mmol/L (22-29); Chloride 104 mmol/L (98-107); Globulin 2.4 g/dL (1.3-4.6); Glucose 123 mg/dL (65-115); Lactate Dehydrogenase 170 U/L (135-225); Osmolality Calculated 300 mOsm/kg (285-295); Potassium 4.5 mmol/L (3.5-5.1); Sodium 141 mmol/L (136-145); Total Bilirubin 0.4 mg/dL (0.15-1.2); Total Protein 6.1 g/dL (6.6-8.7)
[2022-03-09 13:19] LABS: Slide Review Slide Review Perform
[2022-03-21 10:04] LABS: CLL Prognostic Panel (BBPL) See Report
== END 2022-04-07 23:59 | disposition home or self-care (01) ==
PROVIDERS: PCP Family Medicine; Visit Provider Internal Medicine Hematology & Oncology
DX: C91.10 Chronic lymphocytic leukemia of B-cell type not having achieved remission (principal); J44.1 Chronic obstructive pulmonary disease with (acute) exacerbation; Z87.891 Personal history of nicotine dependence; Z86.16 Personal history of COVID-19; Z79.2 Long term (current) use of antibiotics
CPT/HCPCS: 80053; 81263; 82232; 83615; 85025; 88185; 88264; 88271; 88367; 88374; 99214

== ENCOUNTER → 2022-03-17 09:45 | Outpatient (BNVA) | payer MEDICARE, BC, SELFPAY | PROVIDERS: PCP Family Medicine; Visit Provider Nurse Practitioner Family | DX: I13.0 Hypertensive heart and chronic kidney disease with heart failure and stage 1 through stage 4 chronic kidney disease, or unspecified chronic kidney disease (principal); I50.30 Unspecified diastolic (congestive) heart failure; E11.22 Type 2 diabetes mellitus with diabetic chronic kidney disease; N18.9 Chronic kidney disease, unspecified; Z87.891 Personal history of nicotine dependence; Z79.84 Long term (current) use of oral hypoglycemic drugs; I48.92 Unspecified atrial flutter | CPT/HCPCS: 99214 ==

== ENCOUNTER → 2022-03-22 13:19 | Outpatient (BNVA) | payer MEDICARE, BC, SELFPAY | PROVIDERS: PCP Family Medicine; Visit Provider Nurse Practitioner Family | DX: Z96.642 Presence of left artificial hip joint (principal); X58.XXXA Exposure to other specified factors, initial encounter; S72.002A Fracture of unspecified part of neck of left femur, initial encounter for closed fracture | CPT/HCPCS: 73502; 99214 ==

== ENCOUNTER → 2022-04-06 08:22 | Outpatient (BNVA) | payer MEDICARE, BC, SELFPAY | PROVIDERS: PCP Family Medicine; Visit Provider Internal Medicine Critical Care Medicine | DX: J44.9 Chronic obstructive pulmonary disease, unspecified (principal); I50.30 Unspecified diastolic (congestive) heart failure; Z87.891 Personal history of nicotine dependence; N18.9 Chronic kidney disease, unspecified; I48.0 Paroxysmal atrial fibrillation; Z79.01 Long term (current) use of anticoagulants | CPT/HCPCS: 99214 ==

== ENCOUNTER 2022-05-17 15:12 | Inpatient (IN) | payer MEDICARE, BC, SELFPAY ==
[2022-05-17] VITALS (26 sets, daily range): BP systolic 96–196; BP diastolic 64–107; PULSE 74–144; RESP 12–38; TEMP 36.8–37.7; O2SAT 89–98
--- NOTE | 2022-05-17 15:14 | ECG_ITS ---
[facility] Test Date: 2022-05-17 Pat Name: Jesús Cole Department: Room: Gender: Male Defect Cutter: : 1940 Requested By: Finesse Mckeon Order Number: [id number] Gloria MD: Sparkle Paz M.D. Measurements Intervals [place] Rate: 137 P: [place]: QRS: -68 QRSD: 79 T: 65 QT: 296 QTc: 447 Interpretive Statements ATRIAL FLUTTER WITH RAPID VENTRICULAR RESPONSE LEFT AXIS DEVIATION [QRS AXIS < -30] POSSIBLE RIGHT VENTRICULAR CONDUCTION DELAY [RSR (QR) IN V1/V2] ST DEPRESSION, CONSIDER SUBENDOCARDIAL INJURY [0.1+ mV ST DEPRESSION] Compared to ECG 01/29/2022 10:03:15 Left-axis deviation now present ST (T wave) deviation now present Incomplete right bundle-branch block no longer present Electronically Signed On 05-18-2022 5:28:48 UKE OPERATOR by Sparkle Paz M.D. [id number]
--- NOTE | 2022-05-17 15:18 | W.ED.SOB ---
HPI - SOB/Dyspnea General: Chief Complaint: Shortness of Breath/Dyspnea Stated Complaint: SOB Time Seen by Provider: 05/17/22 15:18 History of Present Illness: HPI Narrative: Mr. Cole is an 82-year-old gentleman with significant past medical history of CLL, CKD, hypertension, diabetes, COPD, heart failure, anticoagulation with warfarin presenting to the emergency department due to shortness of breath. Onset of symptoms was 2 to 3 days ago and gradual. He endorses associated shortness of breath with worsening cough and concerned that he has pneumonia. Symptoms are worse with exertion and have become severe. No other specific changes in health, exacerbating, or alleviating factors identified. Onset (ago): day(s) Timing: progressively worsening Severity: severe Exacerbating factors: exertion and coughing Known history of: COPD, congestive heart failure and diabetes Associated symptoms: Reports cough and other Review of Systems General: Reports: 10 or more systems reviewed and unremarkable except in HPI and below PFSH ED PFSH: Medical History Atopic dermatitis, unspecified CAP (community acquired pneumonia) CKD (chronic kidney disease) CLL (chronic lymphocytic leukemia) COPD (chronic obstructive pulmonary disease) Dyslipidemia Edema leg Essential (primary) hypertension GERD (gastroesophageal reflux disease) Gout, unspecified Long-term (current) use of anticoagulants, INR goal 2.0-3.0 Lymphocytosis Orthopnea Pain in left finger(s) Pain in right knee Type 2 diabetes mellitus without complications Unspecified atrial fibrillation Surgical History History of cholecystectomy History of prostate surgery History of total knee replacement Family History Other Cancer Hypertension Lung disease Denies family history of Diabetes CAD (coronary artery disease) Clotting disorder Dementia Hyperlipidemia Psychiatric illness Chronic kidney disease (CKD) Suicide Anesthesia complication Bleeding disorder Stroke Social History Smoking and tobacco status: former smoker (13 years ago) Quit status (tobacco): has quit using tobacco Year quit tobacco: 2009 - 1PPD x 50 Years Second hand smoke exposure: No Alcohol intake: current Lives independently: Yes Household members: spouse Marital status: Current occupational status: retired History of recent travel: No Current gender identity: Male Physical Exam Const: COMMON NORMALS: alert GENERAL APPEARANCE: cooperative, well developed and ill appearing (Somewhat) HENMT: COMMON NORMALS: normocephalic and atraumatic HEAD & SCALP: normocephalic and atraumatic THROAT: posterior oropharynx normal Eye: COMMON NORMALS: conjunctivae normal CONJUNCTIVA: Yes conjunctivae normal SCLERA: sclerae normal Neck/C-Spine: COMMON NORMALS: supple GENERAL: Yes trachea midline Resp: EFFORT & INSPECTION: Yes tachypneic AUSCULTATION: diminished lung sounds Cardio: COMMON NORMALS: regular rhythm RATE: tachycardic RHYTHM: regular rhythm GI: COMMON NORMALS: Soft to palpation PALPATION: Yes Soft to palpation and No Tenderness to palpation present (GI) Extremity: GENERAL: Yes normal exam except as noted and No edema Neuro: COMMON NORMALS: moves all extremities SENSORIUM/ORIENTATION: Yes alert and No Orientation impaired Psych: COMMON NORMALS: mental status grossly normal and Normal thought process present THOUGHT PROCESS: Normal thought process present Course Vital Signs: Vital signs: Vital Signs Temperature 97.8 F 05/20/22 04:28 Pulse Rate 90 05/20/22 15:42 Respiratory Rate 18 05/20/22 14:00 Blood Pressure 123/62 05/20/22 15:42 Pulse Oximetry 92 05/20/22 14:00 Oxygen Delivery Me thod 05/20/22 09:00 Oxygen Flow Rate 3 05/20/22 13:05 Fraction of Inspir ed Oxygen 40 05/18/22 20:00 MDM - SOB/Dyspnea Medical Decision Making 82-year-old gentleman presenting with respiratory symptoms and shortness of breath found to be in A. fib with RVR. Patient somewhat ill in appearance and required supplemental oxygen. BiPAP ordered. EKG shows atrial fibrillation with RVR, nonspecific ST segment abnormalities, no STEMI. Labs notable for leukocytosis, normal hemoglobin. Metabolic panel with normal electrolytes with exception magnesium which is low. BNP mildly elevated. Urinalysis pending. Chest x-ray concerning for right-sided pneumonia, no pneumothorax. Patient treated with albuterol treatment, Cardizem, small fluid bolus, and antibiotics. Upon reassessment patient somewhat improved though still requiring BiPAP. Most likely etiology of patient's symptoms is pneumonia complicated by atrial fibrillation with rapid ventricular response. The results of ED evaluation were discussed with the patient including plan for admission due to requirement for level of care not available if discharged to prevent significant worsening/deterioration. Patient agreeable with plan. Discussed with hospitalist service who was agreeable to admit patient. Medical Records I reviewed the patient's medical records. Lab Data I reviewed the patient's lab results. 05/20/22 04:25 05/20/22 04:25 Labs/Radiology: Radiology Impressions Chest X-Ray 05/17/22 15:23 IMPRESSION: Increase in pneumonia at the right lung base compared with 01/29/[address] 05/19/22 09:46 IMPRESSION: Worsening bilateral basilar infiltrates with small bilateral pleural effusions. Bronchiectasis and emphysema. Laboratory Results WBC 27.3 10^3/uL (4.0-10.0) H 05/17/22 15:45 RBC 4.85 10^6/uL (4.1-5.3) 05/17/22 15:45 Hgb 14.8 g/dL (11.7-16.6) 05/17/22 15:45 Hct 45.8 % (42.0-52.0) 05/17/22 15:45 MCV 94.4 fl (80-94) H 05/17/22 15:45 MCH 30.5 pg (28.0-34.0) 05/17/22 15:45 MCHC 32.3 g/dL (30.0-36.0) 05/17/22 15:45 RDW 14.0 % (12.1-15.1) 05/17/22 15:45 Plt Count 242 10^3/cmm (130-400) 05/17/22 15:45 MPV 9.9 fL (7.4-10.4) 05/17/22 15:45 Neut % (Auto) 69.0 % 05/17/22 15:45 Lymph % (Auto) 25.0 % 05/17/22 15:45 [place] % (Auto) 4.9 % 05/17/22 15:45 Eos % (Auto) 0.3 % 05/17/22 15:45 Baso % (Auto) 0.3 % 05/17/22 15:45 Neut # (Auto) 18.87 10^3/uL (1.8-7.7) H 05/17/22 15:45 Lymph # (Auto) 6.8 10^3/uL (0.8-4.8) H 05/17/22 15:45 [place] # (Auto) 1.3 10^3/uL (0.2-0.9) H 05/17/22 15:45 Eos # (Auto) 0.1 10^3/uL (0.0-0.8) 05/17/22 15:45 Baso # (Auto) 0.1 10^3/uL (0.0-0.1) 05/17/22 15:45 Nucleated RBC % (auto) 0 % 05/17/22 15:45 Nucleated RBCs # 0.0 /100WBC 05/17/22 15:45 PT 29.20 SECONDS (12.1-14.9) H 05/17/22 15:45 INR 2.73 (0.8-1.2) H 05/17/22 15:45 APTT 40.2 SECONDS (23.9-36.7) H 05/17/22 15:45 Specimen Type Arterial 05/17/22 15:35 Sample Site Brachial, left 05/17/22 15:35 ABG pH 7.47 (7.35-7.45) H 05/17/22 15:35 ABG pCO2 33.2 mmHg (35-45) L 05/17/22 15:35 ABG pO2 50.3 mmHg (80.0-100.0) L 05/17/22 15:35 ABG HCO3 24.1 mmol/L (22-26) 05/17/22 15:35 ABG Base Excess 1.1 mmol/L (-2.0-2.0) 05/17/22 15:35 Hema Test N/a 05/17/22 15:35 Hematocrit 46.5 % (42-52) 05/17/22 15:35 O2 Delivery Device Nc 05/17/22 15:35 O2 Liters/Min 4.0 % 05/17/22 15:35 FiO2 36.0 % 05/17/22 15:35 Dental Therapist ID Amh 05/17/22 15:35 Sodium 137 mmol/L (136-145) 05/17/22 15:45 Potassium 4.2 mmol/L (3.5-5.1) 05/17/22 15:45 Chloride 100 mmol/L (98-107) 05/17/22 15:45 Carbon Dioxide 23 mmol/L (22-29) 05/17/22 15:45 Anion Gap 18.2 (5-19) 05/17/22 15:45 BUN 22 mg/dL (8-23) 05/17/22 15:45 Creatinine 1.3 mg/dL (0.7-1.2) H 05/17/22 15:45 GFR Calculation Not Reportable 05/17/22 15:45 Glucose 117 mg/dL (65-115) H 05/17/22 15:45 Calculated Osmolality 288 mOsm/kg (285-295) 05/17/22 15:45 Lactic Acid 1.2 mmol/L (0.5-2.2) 05/17/22 15:45 Calcium 9.1 mg/dL (8.5-10.5) 05/17/22 15:45 Magnesium 1.4 mg/dL (1.7-2.3) L 05/17/22 15:45 Total Bilirubin 1.0 mg/dL (0.15-1.2) 05/17/22 15:45 AST 18 U/L (0-40) 05/17/22 15:45 ALT 24 U/L (0-41) 05/17/22 15:45 Alkaline Phosphatase 115 U/L (40-130) 05/17/22 15:45 C-Reactive Protein 113.8 mg/L (0.0-4.9) H 05/17/22 15:45 NT-Pro-B Natriuret Pep 1143 pg/mL (0-450) H 05/17/22 15:45 Total Protein 6.7 g/dL (6.6-8.7) 05/17/22 15:45 Albumin 3.9 g/dL (3.5-5.2) 05/17/22 15:45 Globulin 2.8 g/dL (1.3-4.6) 05/17/22 15:45 Procalcitonin 0.26 ng/mL (0-0.5) 05/17/22 15:45 TSH 1.38 uIU/mL (0.27-4.20) 05/17/22 15:45 Critical Care Time Critical Care Time: Critical Care Time: Yes Total Critical Care Time: 45 Attestation: Due to a high probability of clinically significant, possibly life threatening deterioration, the patient required my highest level of attention and preparedness to intervene emergently and I personally spent this critical care time directly and personally managing the patient. This critical care time included obtaining a history; examining the patient; pulse oximetry; ordering and review of laboratory and imaging studies; arranging urgent treatment with development of a management plan; evaluation of patient's response to treatment; frequent reassessment; and, discussions with other providers as applicable. It was exclusive of separately billable procedures. Primary system involved is cardiopulmonary Discharge Plan Discharge Patient Disposition: Admitted As Inpatient Admit Provider: Patsy Christopher Clinical Impression: Pneumonia, Atrial fibrillation with rapid ventricular response, Acute and chronic respiratory failure with hypoxia Condition: Stable Discharge Diet: Cardiac Discharge Activity: Increase activity as tolerated Coding Level of Care Code ED Wealth Management Manager for Dorene Fwd Exam Comprehensive
--- NOTE | 2022-05-17 15:23 | XRR_ITS ---
PROCEDURE INFORMATION: Exam: XR Chest Exam date and time: 05/17/2022 5:11 PM Age: 82 years old Clinical indication: Shortness of breath; Prior surgery; Surgery type: Gb; Additional info: SOB TECHNIQUE: Imaging protocol: Radiologic exam of the chest. Views: 1 view. COMPARISON: 1. [place] [id number] 01/29/2022 4:59 PM 2. CR XR chest 2V* [id number] 01/29/2022 10:53 AM FINDINGS: Lungs: There is increasing infiltrate at the right lung base worrisome for pneumonia. Infiltrate at the left lung base is improved compared with 01/29/2022. Pleural spaces: Unremarkable. No pleural effusion. No pneumothorax. Heart/Mediastinum: Heart is within normal limits of size. Bones/joints: There are degenerative changes in the thoracic spine. XR/XR chest 1V portable [id number] IMPRESSION: Increase in pneumonia at the right lung base compared with 01/29/2022
[2022-05-17] MEDS: ipratropium-albuterol 3 mL Neb INHALATION (15:32)
[2022-05-17 15:47] LABS: ABG PCO2 33.2 mmHg (35-45); ABG PH Result 7.47 (7.35-7.45); Arterial Blood Gas Hematocrit 46.5 % (42-52); Base Excess ABG 1.1 mmol/L (-2.0-2.0); Blood Gas Operator Identificat AMH; Blood Gas Sample Site Brachial, left; Blood Gas Sample Type Arterial; HCO3 ABG 24.1 mmol/L (22-26); Oxygen Device NC; PO2 ABG 50.3 mmHg (80.0-100.0)
[2022-05-17] MEDS: dilTIAZem 5 mg/mL SDV 5 mL 20 MG IVP ×2 (15:48→16:07)
[2022-05-17] MEDS: sodium chloride 0.9% 500 ML IV (15:48)
[2022-05-17 16:19] LABS: Basophils # 0.1 10^3/uL (0.0-0.1); Basophils % 0.3 %; Eosinophils # 0.1 10^3/uL (0.0-0.8); Eosinophils % 0.3 %; Hematocrit 45.8 % (42.0-52.0); Hemoglobin 14.8 g/dL (11.7-16.6); Lymphocytes # 6.8 10^3/uL (0.8-4.8); Mean Corpuscular HGB Conc 32.3 g/dL (30.0-36.0); Mean Corpuscular Hemoglobin 30.5 pg (28.0-34.0); Mean Corpuscular Volume 94.4 fl (80-94); Mean Platelet Volume 9.9 fL (7.4-10.4); Monocytes # 1.3 10^3/uL (0.2-0.9); Monocytes % 4.9 %; Neutrophils # 18.87 10^3/uL (1.8-7.7); Nucleated Red Blood Cells % 0 %; Platelet Count 242 10^3/cmm (130-400); Red Blood Count 4.85 10^6/uL (4.1-5.3); White Blood Count 27.3 10^3/uL (4.0-10.0)
[2022-05-17] MEDS: dilTIAZem 100 MG in sodium chloride 0.9% (add-van) 100 ML IV (16:21)
--- NOTE | 2022-05-17 16:41 | PC.NURSE ---
Pt is jerking his arms, says this is common for him, it makes it very hard to get a blood pressure on him, he can not sit still long enough to get one/hear one
[2022-05-17 16:42] LABS: INR 2.73 (0.8-1.2); Lactic Sepsis W/Reflex 1.2 mmol/L (0.5-2.2); Partial Thromboplastin Time 40.2 SECONDS (23.9-36.7)
--- NOTE | 2022-05-17 16:56 | PC.NURSE ---
Pts took him off the bipap and hooked up to medical air, when i entered the room pt was PO was 75%, i asked her why she took it off and she said he did not want it on anymore. RT was called to place bipap back on and pt was taken off the medical air
[2022-05-17 17:01] LABS: NT Pro B Type Natriuretic Pept 1143 pg/mL (0-450); Procalcitonin 0.26 ng/mL (0-0.5); Thyroid Stimulating Hormone 1.38 uIU/mL (0.27-4.20)
[2022-05-17 17:12] LABS: Alanine Aminotransferase 24 U/L (0-41); Albumin Level 3.9 g/dL (3.5-5.2); Alkaline Phosphatase 115 U/L (40-130); Anion Gap 18.2 (5-19); Aspartate Amino Transferase 18 U/L (0-40); Blood Urea Nitrogen 22 mg/dL (8-23); C Reactive Protein 113.8 mg/L (0.0-4.9); Calcium 9.1 mg/dL (8.5-10.5); Carbon Dioxide 23 mmol/L (22-29); Chloride 100 mmol/L (98-107); Globulin 2.8 g/dL (1.3-4.6); Glucose 117 mg/dL (65-115); Magnesium 1.4 mg/dL (1.7-2.3); Osmolality Calculated 288 mOsm/kg (285-295); Potassium 4.2 mmol/L (3.5-5.1); Sodium 137 mmol/L (136-145); Total Protein 6.7 g/dL (6.6-8.7)
--- NOTE | 2022-05-17 17:42 | PM.HP ---
Providers/Chief Complaint Primary Care Provider: Autumn Pierre DO Chief Complaint: SOB History of Present Illness Jesús Cole is a 82 year old male who carries history of CLL presented today for worsening of shortness of breath. is at the bedside stating that whenever he gets sick he gets very anxious and restless. is stating that for last 3 days he has been very fatigued and lethargic and today he was drowsy that prompted her visit to the ER. At baseline uses 3 L, she noticed fever 100.1, he has been experiencing productive cough with yellow sputum In the ER he has been diagnosed with pneumonia, his leukocytosis 27,000 with underlying CLL he is hypoxic requiring 4 L of oxygen, chronic kidney disease without acute worsening He is in A. fib RVR with tachypnea Review of Systems Const: Reports: chills, body aches and fatigue Eyes: Denies: change in vision ENMT: Denies: throat pain Card: Reports: irregular heart rhythm, swelling of feet/ankles, dyspnea on exertion and orthopnea; Denies: chest pain Resp: Reports: dyspnea GI: Denies: abdominal pain : Denies: flank pain Musc: Denies: neck pain Skin/Breast: Denies: rash Neuro: Denies: headache(s) Psych: Reports: anxiety Endo: Denies: polyuria Fidencio/Lymph: Denies: easy bruising All/Imm: Denies: urticaria Medications/Allergies Home Medications Medication Instructions Recorded Confirmed Last Taken Type vit C 250 mg-vit E 90 mg-zinc 40 1 tab PO DAILY 08/19/21 05/17/22 05/16/22 History mg-copper 1 [id number] capsule (PreserVision AREDS-2) citalopram 20 mg tablet 20 mg PO QAM #90 tabs 11/17/21 05/17/22 05/16/22 Rx metoprolol tartrate 25 mg tablet 25 mg PO DAILY PRN heartrate 11/22/21 05/17/22 Unknown History sennosides 8.6 mg-docusate sodium 1 tab-cap PO BID constipation #60 11/23/21 05/17/22 05/16/22 Rx 50 mg tablet (Senna-S) tabs front wheeled walker #1 ea 11/25/21 05/17/22 Unknown Rx potassium chloride 10 mEq 10 meq PO DAILY PRN Take with 02/03/22 05/17/22 Unknown Rx tablet,extended release fureosemide as needed #90 tabs amiodarone 200 mg tablet 100 mg PO BEDTIME #45 tabs 02/20/22 05/17/22 05/16/22 Rx furosemide 20 mg tablet 10 mg PO DAILY #90 tabs 03/17/22 05/17/22 05/16/22 Rx albuterol sulfate 90 mcg/actuation 2 puff inhalation Q4H PRN 04/06/22 05/17/22 05/17/22 Rx aerosol inhaler Shortness Of Breath #8.5 grams fluticasone 500 mcg-salmeterol 50 1 inh inhalation BID #60 ea 04/06/22 05/17/22 05/16/22 Rx mcg/dose blistr powdr for inhalation (Advair Diskus) umeclidinium 62.5 mcg/actuation 1 inh inhalation DAILY #30 ea 04/06/22 05/17/22 05/17/22 Rx blister powder for inhalation (Incruse Ellipta) linagliptin 5 mg tablet (Tradjenta) 5 mg PO BEDTIME #90 tabs 04/12/22 05/17/22 05/16/22 Rx ipratropium 0.5 mg-albuterol 3 mg 3 ml inhalation Q6H PRN Shortness 05/16/22 05/17/22 05/17/22 Rx (2.5 mg base)/3 mL nebulization Of Breath #180 mL soln allopurinol 300 mg tablet 150 mg PO DAILY 05/17/22 05/17/22 05/16/22 History atorvastatin 20 mg tablet 20 mg PO DAILY 05/17/22 05/17/22 05/16/22 History tamsulosin 0.4 mg capsule 0.4 mg PO BEDTIME 05/17/22 05/17/22 05/16/22 History warfarin 2 mg tablet See Rx Instructions .Route .COMPLEX 05/17/22 05/17/22 05/14/22 History warfarin 3 mg tablet See Rx Instructions .Route .COMPLEX 05/17/22 05/17/22 05/16/22 History Allergies Allergy/AdvReac Type Severity Reaction Status Date / Time No Known Allergies Allergy Verified 05/17/22 16:26 PFSH Acute PFSH: Medical History Atopic dermatitis, unspecified CAP (community acquired pneumonia) CKD (chronic kidney disease) CLL (chronic lymphocytic leukemia) COPD (chronic obstructive pulmonary disease) Dyslipidemia Edema leg Essential (primary) hypertension GERD (gastroesophageal reflux disease) Gout, unspecified Long-term (current) use of anticoagulants, INR goal 2.0-3.0 Lymphocytosis Orthopnea Pain in left finger(s) Pain in right knee Type 2 diabetes mellitus without complications Unspecified atrial fibrillation Surgical History History of cholecystectomy History of prostate surgery History of total knee replacement Family History Other Cancer Hypertension Lung disease Denies family history of Diabetes CAD (coronary artery disease) Clotting disorder Dementia Hyperlipidemia Psychiatric illness Chronic kidney disease (CKD) Suicide Anesthesia complication Bleeding disorder Stroke Social History Smoking and tobacco status: former smoker (13 years ago) Quit status (tobacco): has quit using tobacco Year quit tobacco: 2009 - 1PPD x 50 Years Second hand smoke exposure: No Alcohol intake: current Lives independently: Yes Household members: spouse Marital status: Current occupational status: retired History of recent travel: No Current gender identity: Male Vitals/I&O/Wt Last Vital Signs Temp 98.2 F 05/17/22 15:23 Pulse 139 H 05/17/22 15:52 Resp 26 H 05/17/22 15:52 BP 160/101 05/17/22 15:28 Pulse Ox 93 05/17/22 15:52 O2 Del Method 05/17/22 15:52 O2 Flow Rate 4 05/17/22 15:23 FiO2 40 05/17/22 15:52 Weight last 48 hrs Weight 80.286 kg Physical Exam Narrative: Patient is very restless 40% FiO2 Nonpurposeful movements of arms Answer my question appropriately Nonfocal neuro exam Currently on BiPAP Abdomen soft No signs of edema of legs EOMI, PERRLA Nonfocal neuro exam S1, S2 rate A. fib RVR Data : 05/18/22 04:16 05/18/22 04:16 Micro: Microbiology 05/17/22 15:45 Blood Culture - Preliminary Blood SPECIMEN COLLECTED 05/17/22 16:00 Blood Culture - Preliminary Blood SPECIMEN COLLECTED A&P Assessment and plan (1) Pneumonia: (2) Atrial fibrillation with rapid ventricular response: (3) Acute and chronic respiratory failure with hypoxia: (4) CLL (chronic lymphocytic leukemia): (5) CAP (community acquired pneumonia): Plan History of CLL Tardive dyskinesia Restless Acute on chronic hypoxia related to community-acquired pneumonia Patient does not meet sepsis criteria I will start him on ceftriaxone and azithromycin I do believe his infiltrates are chronic which are being read as pneumonia he had similar admission in the past as well I will put him on BiPAP He might need Precedex for his agitation For now I will give him a dose of morphine Is full code Cardiac diet DVT prophylaxis advised with Coumadin A. fib RVR continue Cardizem drip resume home meds along anticoagulating agent Attestations Medical Necessity Statement*: anticipating more than 2 midnights Time Spent in Patient Care: 40 Coding Level of Care Code Acute Screen And Cyclone Repairer for [facility] Fwd Diagnoses Pneumonia J18.9 Atrial fibrillation with rapid ventricular response I48.91 Acute and chronic respiratory failure with hypoxia J96.21 CLL (chronic lymphocytic leukemia) C91.10 CAP (community acquired pneumonia) J18.9
--- NOTE | 2022-05-17 18:39 | ECG_ITS ---
[facility] Test Date: 2022-05-17 Pat Name: Jesús Cole Department: Room: 101 Gender: Male Telecasting Technician: : 1940 Requested By: Finesse Mckeon Order Number: [id number] Gloria MD: Sparkle Paz M.D. Measurements Intervals [place] Rate: 128 P: GA: QRS: 36 QRSD: 87 T: 76 QT: 344 QTc: 503 Interpretive Statements ATRIAL FLUTTER WITH RAPID VENTRICULAR RESPONSE INDETERMINATE AXIS POSSIBLE RIGHT VENTRICULAR CONDUCTION DELAY [RSR (QR) IN V1/V2] MINIMAL ST DEPRESSION [0.025+ mV ST DEPRESSION] Compared to ECG 05/17/2022 15:19:24 Indeterminate axis now present Left-axis deviation no longer present ST (T wave) deviation still present Electronically Signed On 05-18-2022 11:40:39 SPECIAL POLICE OFFICER by Sparkle Paz M.D. [id number]
[2022-05-17 20:08] LABS: Adenovirus Not Detected (NOT DETECT); Chlamydia Pneumoniae Not Detected (NOT DETECT); Coronavirus 229E,HKU1,NL63,OC4 Not Detected (NOT DETECT); Human Metapneumovirus Not Detected (NOT DETECT); Human Rhinovirus/Enterovirus Not Detected (NOT DETECT); Influenza A Not Detected (NOT DETECT); Influenza A H1 Not Detected (NOT DETECT); Influenza A H1-2009 Not Detected (NOT DETECT); Influenza A H3 Not Detected (NOT DETECT); Influenza B Not Detected (NOT DETECT); Mycoplasma Pneumoniae Not Detected (NOT DETECT); Parainfluenza Virus Type 1 Not Detected (NOT DETECT); Parainfluenza Virus Type 2 Not Detected (NOT DETECT); Parainfluenza Virus Type 3 Not Detected (NOT DETECT); Parainfluenza Virus Type 4 Not Detected (NOT DETECT); Respiratory Syncytial Virus A Not Detected (NOT DETECT); Respiratory Syncytial Virus B Not Detected (NOT DETECT); SARS-COV-2 Not Detected (NOT DETECT)
[2022-05-17] MEDS: diphenhydrAMINE 50 mg/mL SDV 1mL 12.5 MG IVP (20:24)
[2022-05-17] MEDS: amiodarone 200 mg Tablet 100 MG PO (20:25)
[2022-05-17] MEDS: tamsulosin 0.4 mg Capsule PO (20:25)
[2022-05-17] MEDS: sennosides-docusate Tablet 1 TAB PO (20:26)
[2022-05-17 21:03] LABS: Glucose Point of Care 112 mg/dL (70-110)
--- NOTE | 2022-05-17 21:14 | ECG_ITS ---
[facility] Test Date: 2022-05-17 Pat Name: Jesús Cole Department: Room: 101 Gender: Male Freelance Copywriter: : 1940 Requested By: Finesse Mckeon Order Number: [id number] Gloria MD: Andrew Antonio M.D. Measurements Intervals [place] Rate: 120 P: DE: QRS: -43 QRSD: 86 T: 7 QT: 379 QTc: 536 Interpretive Statements Atrial fibrillation or flutter with significant baseline artifact LEFT AXIS DEVIATION [QRS AXIS < -30] POSSIBLE RIGHT VENTRICULAR CONDUCTION DELAY [RSR (QR) IN V1/V2] MODERATE T-WAVE ABNORMALITY, CONSIDER INFERIOR ISCHEMIA [-0.1+ mV T-WAVE IN II/aVF] Compared to ECG 05/17/2022 18:39:39 Aberrant conduction of supraventricular beat(s) now present Left-axis deviation now present Indeterminate axis no longer present ST (T wave) deviation no longer present Electronically Signed On 05-18-2022 15:04:55 WATER TREATMENT OPERATOR by Andrew Antonio M.D. [id number]
[2022-05-17] MEDS: warfarin 3 mg Tablet PO (21:28)
[2022-05-17 22:19] LABS: Add Urine Microscopic? YES; Bilirubin Urine 1+ (Negative); Blood Urine 3+ (Negative); Glucose Urine UA Norm (Normal); Ketones Urine 1+ (Negative); Leukocyte Esterase Urine Negative (Negative); Nitrate Urine Negative (Negative); Protein Urine 3+ (Negative); Urine Appearance Clear (CLEAR); Urine Color Amber (Yellow); Urobilinogen Urine Norm (Negative); pH Urine 5 (5-7)
[2022-05-17 22:21] LABS: Add Urine Culture? No; Amorphous Sediment Urine 1+ /hpf; Bacteria Urine TRACE /hpf; Coarse Granular Casts Urine 0-2 /lpf; Hyaline Casts Urine 0-4 /lpf; Mucus Urine 1+ /hpf; RBC Urine 80-100 /hpf (0-2); Squamous Epithelial Cell Urine 0-4 /hpf (0-5); WBC Urine 0-4 /hpf (0-5)
[2022-05-18] VITALS (63 sets, daily range): BP systolic 109–160; BP diastolic 53–83; PULSE 62–123; RESP 17–32; TEMP 37.1–38.9; O2SAT 82–97
[2022-05-18] MEDS: acetaminophen 325 mg Tablet 650 MG PO (00:06)
[2022-05-18] MEDS: magnesium sulfate premix 2 GM/50 ML PIGGYBACK IV (00:07)
[2022-05-18] MEDS: dilTIAZem 100 MG in sodium chloride 0.9% (add-van) 100 ML 15 MG IV (00:32)
--- NOTE | 2022-05-18 03:51 | PC.NURSE ---
converted from atrial flutter, to NSR around 0050. Cardizem drip was titrated down per SEP and initially continued. Discussed use with hospitalist, placed on hold at 0325. Patient continues to be NSR rate 67 at this time.
[2022-05-18 05:22] LABS: Basophils # 0.1 10^3/uL (0.0-0.1); Basophils % 0.2 %; Hemoglobin 13.8 g/dL (11.7-16.6); Lymphocytes # 7.9 10^3/uL (0.8-4.8); Lymphocytes % 31.7 %; Mean Corpuscular HGB Conc 31.4 g/dL (30.0-36.0); Mean Corpuscular Hemoglobin 30.2 pg (28.0-34.0); Mean Corpuscular Volume 96.3 fl (80-94); Mean Platelet Volume 9.7 fL (7.4-10.4); Monocytes # 1.5 10^3/uL (0.2-0.9); Neutrophils # 15.23 10^3/uL (1.8-7.7); Neutrophils % 61.5 %; Nucleated Red Blood Cells % 0 %; Platelet Count 220 10^3/cmm (130-400); Red Blood Count 4.57 10^6/uL (4.1-5.3); White Blood Count 24.8 10^3/uL (4.0-10.0)
[2022-05-18 05:36] LABS: INR 2.65 (0.8-1.2)
[2022-05-18] MEDS: citalopram 20 mg Tablet PO (05:45)
[2022-05-18 05:47] LABS: Anion Gap 16.3 (5-19); Blood Urea Nitrogen 26 mg/dL (8-23); C Reactive Protein 194.2 mg/L (0.0-4.9); Calcium 8.8 mg/dL (8.5-10.5); Carbon Dioxide 21 mmol/L (22-29); Chloride 103 mmol/L (98-107); Glucose 99 mg/dL (65-115); Osmolality Calculated 287 mOsm/kg (285-295); Potassium 4.3 mmol/L (3.5-5.1); Sodium 136 mmol/L (136-145)
[2022-05-18 05:52] LABS: Creatinine Clr Calc Pharmacy 42.1747
[2022-05-18 06:47] LABS: Glucose Point of Care 102 mg/dL (70-110)
[2022-05-18] MEDS: FUROsemide 20 mg Tablet 10 MG PO (08:41)
[2022-05-18] MEDS: dilTIAZem 30 mg Tablet PO ×4 (08:41→20:35)
[2022-05-18] MEDS: allopurinol 100 mg Tablet 150 MG PO (08:41)
[2022-05-18] MEDS: sennosides-docusate Tablet 1 TAB PO ×2 (08:41→17:57)
[2022-05-18] MEDS: cefTRIAXone 1,000 MG in sodium chloride 0.9% (plus) 50 ML 100 MG IV (08:42)
[2022-05-18] MEDS: azithromycin 250 mg Tablet 500 MG PO (08:42)
[2022-05-18] MEDS: ipratropium-albuterol 3 mL Neb INHALATION ×2 (08:46→14:07)
--- NOTE | 2022-05-18 10:12 | PC.CHAP ---
Pastoral Care Encounter/Spiritual Assessment Type of Contact [] Declined agriscience technology instructor visit [] Patient/Family/Request visit [] Outpatient visit [] Follow-up visit [] Physician referral [] Code/Alert [x] Routine visit [] Staff referral [] Actively dying [] Patient sleeping [] Family support [] [] Out of room [] Palliative care [] [x] Receiving care in room [] Pre-surgical visit [] Trauma [x] Long length of stay [] ICU visit [] Other: Relational/Emotional Strength [x] Patient feels connected with others/family/visitors/staff [] Distress [] Loneliness/isolation [] Abandonment Spirituality of Patient [x] Person of Shefali [] Attends Caodaism of their Shefali [x] Believes in Prayer [] Reads Bible or Mandaen materials [] There are Spiritual issues to be addressed Food Service Agent Interventions [x] Prayer [x] Active listening [x] Non-anxious presence [x] Spiritual/emotional support [] Crisis/trauma care [x] Spiritual counseling [] Bereavement support [] Provided bereavement packet [] Provided Bible/devotional materials [] Provided toy/stuffed animal, coloring book to patient or family member [] Provided Communion [] Anointing/[facility] [] Salvation [x] Completed spiritual assessment [] Other: Impact on Illness or Injury [] Angry [] Fearful [x] Anxious [] Often cries [] Exhaustion [] Unable to work [] Unable to attend scientology [] Unable to walk/stand [] Unable to read [] Unable to drive [] Unable to eat/drink [] Unable to sleep [] Unable to be with family [] Patient intubated [] Other: Summary SOS heart negative not sure when he will be able to go home at some point Time spent with patient 10 mins
--- NOTE | 2022-05-18 11:54 | PM.PN ---
Subjective Subjective: Patient is endorsing feeling slightly better Happy with his progress Patient started having fever last night around midnight Vitals/I&O/Wt Last Vital Signs Temp 99.3 F 05/18/22 05:00 Pulse 78 05/18/22 11:31 Resp 22 H 05/18/22 11:31 BP 133/64 05/18/22 05:00 Pulse Ox 93 05/18/22 11:31 O2 Del Method 05/18/22 11:31 O2 Flow Rate 6 05/18/22 11:31 FiO2 40 05/18/22 07:15 05/17/22 05/18/22 05/18/22 22:59 06:59 14:59 Intake Total 1169.5 / 1169.5 242.333 / 1411.833 50 / 50 Output Total 300 / 300 Balance 869.5 / 869.5 242.333 / 1111.833 50 / 50 Weight last 48 hrs Weight 80.286 kg Physical Exam Narrative: Patient is awake and alert Feeling better Currently on 6 L nasal cannula Bilateral breath sound with rhonchi and in mild crackles Wheezing improved Abdomen soft Awake and alert Less restless today at the bedside Nonfocal neuro exam Data : 05/18/22 04:16 05/18/22 04:16 Micro: Microbiology 05/17/22 15:45 Blood Culture - Preliminary Blood SPECIMEN COLLECTED 05/17/22 16:00 Blood Culture - Preliminary Blood SPECIMEN COLLECTED A&P Assessment and plan (1) Pneumonia: (2) Atrial fibrillation with rapid ventricular response: (3) Acute and chronic respiratory failure with hypoxia: (4) CLL (chronic lymphocytic leukemia): Plan Febrile event related to pneumonia I have escalated antibiotics to vancomycin and Zosyn Requested urine and sputum cultures Acute on chronic hypoxia patient currently doing well 6 L A. fib RVR: Improved switch to p.o. regimen Persistent leukocytosis with underlying CLL For tardive dyskinesia I gave him Benadryl and continued clonazepam Full code DVT prophylaxis sufficed with Coumadin Congestive heart failure without acute exacerbation continue low-dose Lasix Attestations Medical Necessity Statement*: Continue medical management Time Spent in Patient Care: 30 Coding Level of Care Code Acute Electrical Accessories Ii Assembler for [facility] Fwd Diagnoses Pneumonia J18.9 Atrial fibrillation with rapid ventricular response I48.91 Acute and chronic respiratory failure with hypoxia J96.21 CLL (chronic lymphocytic leukemia) C91.10
[2022-05-18 12:10] LABS: Glucose Point of Care 137 mg/dL (70-110)
[2022-05-18] MEDS: piperacillin-tazobactam 3.375 GM in sodium chloride 0.9% (plus) 50 ML IV ×2 (13:50→20:01)
[2022-05-18] MEDS: ondansetron 2 mg/ML SDV 2 mL 4 MG IVP (14:27)
[2022-05-18] MEDS: CLONazepam 0.5 mg Tablet 0.25 MG PO ×2 (16:02→21:19)
[2022-05-18] MEDS: vancomycin 1,000 MG in sodium chloride 0.9% 250 ML 250 MG IV (16:26)
[2022-05-18 17:06] LABS: Glucose Point of Care 154 mg/dL (70-110)
[2022-05-18] MEDS: insulin lispro 100 unit/1 mL SUBCUT (17:51)
[2022-05-18] MEDS: warfarin 3 mg Tablet PO (20:01)
[2022-05-18 20:11] LABS: Glucose Point of Care 95 mg/dL (70-110)
[2022-05-18] MEDS: tamsulosin 0.4 mg Capsule PO (20:35)
[2022-05-18] MEDS: amiodarone 200 mg Tablet 100 MG PO (20:35)
[2022-05-19] VITALS (9 sets, daily range): BP systolic 103–136; BP diastolic 56–61; PULSE 60–112; RESP 16–32; TEMP 37–37.5; O2SAT 86–100
[2022-05-19 02:09] LABS: Basophils % 0.2 %; Eosinophils # 0.2 10^3/uL (0.0-0.8); Eosinophils % 1.2 %; Hematocrit 39.5 % (42.0-52.0); Hemoglobin 12.5 g/dL (11.7-16.6); Lymphocytes # 6.2 10^3/uL (0.8-4.8); Mean Corpuscular HGB Conc 31.6 g/dL (30.0-36.0); Mean Corpuscular Hemoglobin 30.3 pg (28.0-34.0); Mean Corpuscular Volume 95.6 fl (80-94); Monocytes # 1.4 10^3/uL (0.2-0.9); Monocytes % 7.2 %; Neutrophils # 10.69 10^3/uL (1.8-7.7); Neutrophils % 57.4 %; Nucleated Red Blood Cells % 0 %; Platelet Count 204 10^3/cmm (130-400); Red Blood Count 4.13 10^6/uL (4.1-5.3); Red Cell Distribution Width 13.8 % (12.1-15.1); White Blood Count 18.7 10^3/uL (4.0-10.0)
[2022-05-19 02:24] LABS: INR 3.36 (0.8-1.2)
[2022-05-19 02:31] LABS: Anion Gap 13.1 (5-19); Blood Urea Nitrogen 37 mg/dL (8-23); Calcium 8.6 mg/dL (8.5-10.5); Carbon Dioxide 25 mmol/L (22-29); Chloride 101 mmol/L (98-107); Glucose 129 mg/dL (65-115); Osmolality Calculated 290 mOsm/kg (285-295); Potassium 4.1 mmol/L (3.5-5.1); Sodium 135 mmol/L (136-145)
--- NOTE | 2022-05-19 02:42 | PC.NURSE ---
Patient attempted to urinate a second time this evening without success. Patient c/o lower abdominal discomfort with palpation. Performed bladder scan with retained urine volumes of [id number].Contacted night hospitalist regarding patient's urinary retention. Order received for mckeon catheter with the provision that if the immediate return is 200ml or greater to leave mckeon in place.
[2022-05-19] MEDS: piperacillin-tazobactam 3.375 GM in sodium chloride 0.9% (plus) 50 ML IV ×3 (04:18→23:05)
[2022-05-19] MEDS: citalopram 20 mg Tablet PO (05:44)
[2022-05-19 06:36] LABS: Glucose Point of Care 115 mg/dL (70-110)
[2022-05-19] MEDS: dilTIAZem 30 mg Tablet PO (08:55)
[2022-05-19] MEDS: allopurinol 100 mg Tablet 150 MG PO (08:55)
[2022-05-19] MEDS: sennosides-docusate Tablet 1 TAB PO ×2 (08:55→18:46)
--- NOTE | 2022-05-19 09:16 | PC.NURSE ---
Bedside report received from Sharon Peck RN. Patient stable.
--- NOTE | 2022-05-19 09:46 | PM.PN ---
Subjective Subjective: Patient is stating that he is feeling better Afebrile Leukocytosis trending down he is almost at baseline as compared to his CLL Vitals/I&O/Wt Last Vital Signs Temp 99.4 F 05/19/22 04:30 Pulse 74 05/19/22 09:14 Resp 23 H 05/19/22 09:14 BP 110/58 05/19/22 04:30 Pulse Ox 93 05/19/22 09:14 O2 Del Method 05/19/22 00:00 O2 Flow Rate 5 05/19/22 00:00 FiO2 40 05/18/22 20:00 05/18/22 05/19/22 05/19/22 22:59 06:59 14:59 Intake Total 780 / 1070 290 / 1360 530 / 530 Output Total 520 / 520 Balance 780 / 1070 -230 / 840 530 / 530 Weight last 48 hrs Weight 80.286 kg Physical Exam Narrative: Patient is resting comfortably No respite distress He is not restless Awake and alert S1, S2 variable Currently on 5 L nasal cannula Abdomen soft Productive cough Nonfocal neuro exam Urinary Catheter Management: Yu: Cath Placed During This Visit: yes Reason for Continuing Indwelling Catheter: Acute Urinary Retention or Obstruction Urinary Catheter Date of Insertion: 05/19/22 Urinary Catheter Time of Insertion: 03:30 Data : 05/19/22 01:46 05/19/22 01:46 Micro: Microbiology 05/17/22 16:00 Blood Culture - Preliminary Blood NEGATIVE TO DATE 05/17/22 15:45 Blood Culture - Preliminary Blood NEGATIVE TO DATE 05/18/22 13:45 Legionella Urinary Antigen - Final Urine,Voided A&P Assessment and plan (1) Pneumonia: (2) Atrial fibrillation with rapid ventricular response: (3) Acute and chronic respiratory failure with hypoxia: (4) CLL (chronic lymphocytic leukemia): (5) CAP (community acquired pneumonia): Plan Acute on chronic hypoxia related to pneumonia Patient clinically is doing better Currently on 5 L nasal cannula He is not restless No respiratory distress Dyskinesia improved with Klonopin A. fib without RVR switched to Cardizem 120 mg daily, continue anticoagulating agent Continue amiodarone along metoprolol Continue IV antibiotics Coumadin on board Currently patient is euvolemic No active CHF exacerbation Plan to discharge him over the weekend Attestations Medical Necessity Statement*: Discharge over the weekend Time Spent in Patient Care: 30 Coding Level of Care Code Acute Mechanical Engineering Specialist for [facility] Fwd Diagnoses Pneumonia J18.9 Atrial fibrillation with rapid ventricular response I48.91 Acute and chronic respiratory failure with hypoxia J96.21 CLL (chronic lymphocytic leukemia) C91.10 CAP (community acquired pneumonia) J18.9
--- NOTE | 2022-05-19 09:46 | CTR_ITS ---
PROCEDURE INFORMATION: Exam: CT Chest Without Contrast; Diagnostic Exam date and time: 05/19/2022 12:57 PM Age: 82 years old Clinical indication: Condition or disease; Lung condition and disease; Pneumonia; Viral; Additional info: Pna TECHNIQUE: Imaging protocol: Diagnostic computed tomography of the chest without contrast. Radiation optimization: All CT scans at this facility use at least one of these dose optimization techniques: automated exposure control; mA and/or kV adjustment per patient size (includes targeted exams where dose is matched to clinical indication); or iterative reconstruction. COMPARISON: [place] [id number] 01/29/2022 4:59 PM RADIATION DOSE METRICS: Total DLP (mGy-cm): 480.81 FINDINGS: Lungs: Bilateral basilar infiltrates have increased. Stable bibasilar bronchiectasis. Pleural spaces: Small bilateral pleural effusions. This is new on the right and slightly increased on the left. Heart: Extensive stable coronary artery calcifications. Lymph nodes: Unremarkable. No enlarged lymph nodes. Vasculature: Unremarkable. No aortic aneurysm. Gallbladder and bile ducts: Stable cholecystectomy clips. Bones/joints: Stable spinal spurring. Stable spinal fixation. Soft tissues: Unremarkable. Other findings: Stable emphysema. CT/CT chest wo con [id number] IMPRESSION: Worsening bilateral basilar infiltrates with small bilateral pleural effusions. Bronchiectasis and emphysema.
[2022-05-19] MEDS: acetaminophen 325 mg Tablet 650 MG PO (09:55)
[2022-05-19 11:38] LABS: Glucose Point of Care 173 mg/dL (70-110)
[2022-05-19] MEDS: insulin lispro 100 unit/1 mL SUBCUT ×2 (12:00→18:46)
[2022-05-19] MEDS: vancomycin 1,000 MG in sodium chloride 0.9% 250 ML 250 MG IV (18:22)
[2022-05-19 18:36] LABS: Glucose Point of Care 158 mg/dL (70-110)
[2022-05-19 20:08] LABS: Glucose Point of Care 150 mg/dL (70-110)
[2022-05-19] MEDS: amiodarone 200 mg Tablet 100 MG PO (20:27)
[2022-05-19] MEDS: tamsulosin 0.4 mg Capsule PO (20:27)
[2022-05-19] MEDS: warfarin 3 mg Tablet PO (20:28)
[2022-05-20] VITALS (8 sets, daily range): BP systolic 111–123; BP diastolic 58–62; PULSE 64–90; RESP 18–22; TEMP 36.6; O2SAT 88–97
[2022-05-20] MEDS: guaiFENesin 100 mg/5 mL UDC 10 mL 200 MG PO (03:16)
[2022-05-20] MEDS: piperacillin-tazobactam 3.375 GM in sodium chloride 0.9% (plus) 50 ML IV (03:59)
[2022-05-20] MEDS: citalopram 20 mg Tablet PO (05:09)
[2022-05-20 05:56] LABS: Basophils % 0.1 %; Eosinophils # 0.5 10^3/uL (0.0-0.8); Eosinophils % 2.9 %; Hematocrit 37.2 % (42.0-52.0); Hemoglobin 11.8 g/dL (11.7-16.6); Lymphocytes # 4.3 10^3/uL (0.8-4.8); Lymphocytes % 27.4 %; Mean Corpuscular HGB Conc 31.7 g/dL (30.0-36.0); Mean Corpuscular Hemoglobin 30.4 pg (28.0-34.0); Mean Corpuscular Volume 95.9 fl (80-94); Mean Platelet Volume 10.1 fL (7.4-10.4); Monocytes # 1.1 10^3/uL (0.2-0.9); Monocytes % 7.2 %; Neutrophils # 9.63 10^3/uL (1.8-7.7); Neutrophils % 61.9 %; Nucleated Red Blood Cells % 0 %; Platelet Count 198 10^3/cmm (130-400); Red Blood Count 3.88 10^6/uL (4.1-5.3); Red Cell Distribution Width 13.9 % (12.1-15.1); White Blood Count 15.6 10^3/uL (4.0-10.0)
[2022-05-20 06:13] LABS: INR 3.79 (0.8-1.2)
[2022-05-20 06:18] LABS: Anion Gap 12.2 (5-19); Blood Urea Nitrogen 41 mg/dL (8-23); Calcium 8.3 mg/dL (8.5-10.5); Carbon Dioxide 25 mmol/L (22-29); Chloride 101 mmol/L (98-107); Glucose 144 mg/dL (65-115); Osmolality Calculated 291 mOsm/kg (285-295); Potassium 4.2 mmol/L (3.5-5.1); Sodium 134 mmol/L (136-145)
[2022-05-20 06:40] LABS: Glucose Point of Care 130 mg/dL (70-110)
[2022-05-20] MEDS: sennosides-docusate Tablet 1 TAB PO (09:15)
[2022-05-20] MEDS: dilTIAZem ER (24HR) 120 mg Capsule PO (09:15)
[2022-05-20] MEDS: allopurinol 100 mg Tablet 150 MG PO (09:15)
--- NOTE | 2022-05-20 09:36 | PM.DCS ---
Discharge Providers Date of Admission: 05/17/22 17:44 Date of Discharge: May 20, 2022 Attending Provider at Admission: Patsy Christopher MD Attending Provider at Discharge: Patsy Christopher MD Primary Care Provider: Autumn Pierre DO Diagnoses at Discharge Discharge Diagnosis (1) Pneumonia: Status: Acute (2) Atrial fibrillation with rapid ventricular response: Status: Acute (3) Acute and chronic respiratory failure with hypoxia: Status: Acute (4) CLL (chronic lymphocytic leukemia): Status: Acute (5) CAP (community acquired pneumonia): Status: Acute Reason for Visit Reason for Visit: SOB Hospital Course Hospital Course 82-year-old male who has history of CLL presented to the hospital for worsening of shortness of breath at home requires 3 L of oxygen, he has history of A. fib uses Coumadin, he was admitted and put on BiPAP to decrease work of breathing, akathisia improved when I started him on Klonopin, his leukocytosis improved, he remained afebrile after initial antibiotic regimen, now requiring 4 to 5 L of oxygen, patient is stating that he feels improved and much better he wants to go home, she had has been made to discharge him home after new home oxygen evaluation and give him Augmentin and doxycycline 10-day regimen CT scan does show bilateral infiltrate, COVID-19 negative, I have asked him to continue his Lasix along potassium supplement and hold Coumadin because his INR is above 3.5, hold Coumadin until Sunday. Previous MRSA nares negative. Patient is eating breakfast, happy with his progress. Blood cultures negative. He remains full code Physical Exam Narrative: Awake and alert Currently on 4 L Eating breakfast Wheezing and crackles improved Clinically looks euvolemic S1, S2 variable Hemodynamically stable Nonfocal neuro exam Urinary Catheter Management: Yu: Cath Placed During This Visit: yes Reason for Continuing Indwelling Catheter: Acute Urinary Retention or Obstruction Urinary Catheter Date of Insertion: 05/19/22 Urinary Catheter Time of Insertion: 03:30 Discharge Data Studies Completed and Pending Completed Studies During Hospitalization Category Date Time Status CT chest wo con [id number] Routine Cat Scan 05/19/22 09:46 Completed XR chest 1V portable [id number] Stat Exams 05/17/22 15:23 Completed Pending at discharge Category Date Time Status Blood Culture Stat Lab 05/17/22 15:45 Results Sputum Culture and Gram Stain Routine Lab 05/18/22 17:39 Ordered Radiology Impressions Chest X-Ray 05/17/22 15:23 IMPRESSION: Increase in pneumonia at the right lung base compared with 01/29/[address] 05/19/22 09:46 IMPRESSION: Worsening bilateral basilar infiltrates with small bilateral pleural effusions. Bronchiectasis and emphysema. Laboratory Results WBC 15.6 10^3/uL (4.0-10.0) H 05/20/22 04:25 RBC 3.88 10^6/uL (4.1-5.3) L 05/20/22 04:25 Hgb 11.8 g/dL (11.7-16.6) 05/20/22 04:25 Hct 37.2 % (42.0-52.0) L 05/20/22 04:25 MCV 95.9 fl (80-94) H 05/20/22 04:25 MCH 30.4 pg (28.0-34.0) 05/20/22 04:25 MCHC 31.7 g/dL (30.0-36.0) 05/20/22 04:25 RDW 13.9 % (12.1-15.1) 05/20/22 04:25 Plt Count 198 10^3/cmm (130-400) 05/20/22 04:25 MPV 10.1 fL (7.4-10.4) 05/20/22 04:25 Neut % (Auto) 61.9 % 05/20/22 04:25 Lymph % (Auto) 27.4 % 05/20/22 04:25 [place] % (Auto) 7.2 % 05/20/22 04:25 Eos % (Auto) 2.9 % 05/20/22 04:25 Baso % (Auto) 0.1 % 05/20/22 04:25 Neut # (Auto) 9.63 10^3/uL (1.8-7.7) H 05/20/22 04:25 Lymph # (Auto) 4.3 10^3/uL (0.8-4.8) 05/20/22 04:25 [place] # (Auto) 1.1 10^3/uL (0.2-0.9) H 05/20/22 04:25 Eos # (Auto) 0.5 10^3/uL (0.0-0.8) 05/20/22 04:25 Baso # (Auto) 0.0 10^3/uL (0.0-0.1) 05/20/22 04:25 Nucleated RBC % (auto) 0 % 05/20/22 04:25 Nucleated RBCs # 0.0 /100WBC 05/20/22 04:25 PT 37.60 SECONDS (12.1-14.9) H 05/20/22 04:25 INR 3.79 (0.8-1.2) H 05/20/22 04:25 APTT 40.2 SECONDS (23.9-36.7) H 05/17/22 15:45 Specimen Type Arterial 05/17/22 15:35 Sample Site Brachial, left 05/17/22 15:35 ABG pH 7.47 (7.35-7.45) H 05/17/22 15:35 ABG pCO2 33.2 mmHg (35-45) L 05/17/22 15:35 ABG pO2 50.3 mmHg (80.0-100.0) L 05/17/22 15:35 ABG HCO3 24.1 mmol/L (22-26) 05/17/22 15:35 ABG Base Excess 1.1 mmol/L (-2.0-2.0) 05/17/22 15:35 Hema Test N/a 05/17/22 15:35 Hematocrit 46.5 % (42-52) 05/17/22 15:35 O2 Delivery Device Nc 05/17/22 15:35 O2 Liters/Min 4.0 % 05/17/22 15:35 FiO2 36.0 % 05/17/22 15:35 Requirements Engineer ID [email or web address] 05/17/22 15:35 Sodium 134 mmol/L (136-145) L 05/20/22 04:25 Potassium 4.2 mmol/L (3.5-5.1) 05/20/22 04:25 Chloride 101 mmol/L (98-107) 05/20/22 04:25 Carbon Dioxide 25 mmol/L (22-29) 05/20/22 04:25 Anion Gap 12.2 (5-19) 05/20/22 04:25 BUN 41 mg/dL (8-23) H 05/20/22 04:25 Creatinine 2.0 mg/dL (0.7-1.2) H 05/20/22 04:25 GFR Calculation Not Reportable 05/20/22 04:25 Glucose 144 mg/dL (65-115) H 05/20/22 04:25 POC Glucose 130 mg/dL (70-110) H 05/20/22 06:26 Calculated Osmolality 291 mOsm/kg (285-295) 05/20/22 04:25 Lactic Acid 1.2 mmol/L (0.5-2.2) 05/17/22 15:45 Calcium 8.3 mg/dL (8.5-10.5) L 05/20/22 04:25 Magnesium 2.0 mg/dL (1.7-2.3) 05/18/22 04:16 Total Bilirubin 1.0 mg/dL (0.15-1.2) 05/17/22 15:45 AST 18 U/L (0-40) 05/17/22 15:45 ALT 24 U/L (0-41) 05/17/22 15:45 Alkaline Phosphatase 115 U/L (40-130) 05/17/22 15:45 C-Reactive Protein 194.2 mg/L (0.0-4.9) H 05/18/22 04:16 NT-Pro-B Natriuret Pep 1143 pg/mL (0-450) H 05/17/22 15:45 Total Protein 6.7 g/dL (6.6-8.7) 05/17/22 15:45 Albumin 3.9 g/dL (3.5-5.2) 05/17/22 15:45 Globulin 2.8 g/dL (1.3-4.6) 05/17/22 15:45 Procalcitonin 0.26 ng/mL (0-0.5) 05/17/22 15:45 TSH 1.38 uIU/mL (0.27-4.20) 05/17/22 15:45 Urine Color Fidelia (Yellow) 05/17/22 21:20 Urine Appearance Clear (CLEAR) 05/17/22 21:20 Urine pH 5 (5-7) 05/17/22 21:20 Ur Specific [place] 1.020 (1.005-1.030) 05/17/22 21:20 Urine Protein 3+ (Negative) H 11/09/22 21:20 Urine Glucose (UA) Norm (Normal) 05/17/22 21:20 Urine Ketones 1+ (Negative) H 05/17/22 21:20 Urine Blood 3+ (Negative) H 05/17/22 21:20 Urine Nitrate Negative (Negative) 05/17/22 21:20 Urine Bilirubin 1+ (Negative) H 05/17/22 21:20 Urine Urobilinogen Norm mg/dL (Negative) 05/17/22 21:20 Ur Leukocyte Esterase Negative (Negative) 05/17/22 21:20 Urine RBC 80-100 /hpf (0-2) H 05/17/22 21:20 Urine WBC 0-4 /hpf (0-5) H 05/17/22 21:20 Ur Squamous Epith Cells 0-4 /hpf (0-5) H 05/17/22 21:20 Amorphous Sediment 1+ /hpf 05/17/22 21:20 Urine Bacteria Trace /hpf (NONE) 05/17/22 21:20 Hyaline Casts 0-4 /lpf H 05/17/22 21:20 Coarse Granular Casts 0-2 /lpf 05/17/22 21:20 Urine Mucus 1+ /hpf 05/17/22 21:20 Coronavirus 229E (PCR) Not detected (NOT DETECT) 05/17/22 18:01 SARS-CoV-2 (PCR) Not detected (NOT DETECT) 05/17/22 18:01 Vitals Last Vital Signs Temp 97.8 F 05/20/22 04:28 Pulse 75 05/20/22 09:00 Resp 18 05/20/22 09:00 BP 111/58 05/20/22 04:28 Pulse Ox 92 05/20/22 09:00 O2 Del Method 05/20/22 09:00 O2 Flow Rate 5 05/20/22 09:00 FiO2 40 05/18/22 20:00 Discharge Plan Discharge Patient Disposition: Home Condition: Stable Prescriptions: New clonazepam 0.5 mg Tablet 0.25 mg PO TID PRN (Reason: agitation) Qty: 30 0RF diltiazem HCl 120 mg Capsule,Extended Release 24hr 120 mg PO DAILY Qty: 60 2RF amoxicillin-pot clavulanate 875-125 mg tablet 1 tab PO BID Qty: 20 0RF doxycycline hyclate 100 mg tablet 100 mg PO BID 10 Days Qty: 20 0RF Continued PreserVision AREDS-2 250-90-40-1 mg capsule 1 tab PO DAILY potassium chloride 10 mEq tablet extended release 10 meq PO DAILY PRN (Reason: Take with fureosemide as needed) Qty: 90 1RF albuterol sulfate 90 mcg/actuation HFA aerosol inhaler 2 puff inhalation Q4H PRN (Reason: Shortness Of Breath) Qty: 8.5 6RF fluticasone propion-salmeterol [Advair Diskus] 500-50 mcg/dose blister with device 1 inh inhalation BID Qty: 60 6RF Rx Instructions: 340 B Incruse Ellipta 62.5 mcg/actuation blister with device 1 inh inhalation DAILY Qty: 30 6RF furosemide 20 mg tablet 10 mg PO DAILY Qty: 90 1RF citalopram 20 mg tablet 20 mg PO QAM Qty: 90 1RF (DME) front wheeled walker See Rx Instructions .Route .MEDSUPPLY Qty: 1 0RF Rx Instructions: As directed amiodarone 200 mg tablet 100 mg PO BEDTIME Qty: 45 1RF Tradjenta 5 mg tablet 5 mg PO BEDTIME Qty: 90 1RF ipratropium-albuterol 0.5 mg-3 mg(2.5 mg base)/3 mL solution for nebulization 3 ml inhalation Q6H PRN (Reason: Shortness Of Breath) Qty: 180 3RF metoprolol tartrate 25 mg tablet 25 mg PO DAILY PRN (Reason: heartrate) sennosides-docusate sodium [Senna-S] 8.6-50 mg tablet 1 tab-cap PO BID Qty: 60 0RF atorvastatin 20 mg tablet 20 mg PO DAILY tamsulosin 0.4 mg capsule 0.4 mg PO BEDTIME allopurinol 300 mg tablet 150 mg PO DAILY Held warfarin 3 mg tablet See Rx Instructions .ROUTE .COMPLEX Hold Instructions: Resume on 05/22/22. Rx Instructions: 3 mg orally SUNDAY - SUNDAY warfarin 2 mg tablet See Rx Instructions .ROUTE .COMPLEX Hold Instructions: Resume on 05/22/22. Rx Instructions: 2 mg PO ON SUNDAY AND SUNDAY Discharge Orders: Discharge Order (Routine); Ordered 05/20/22 Ordered By: Patsy Christopher Referrals: Autumn Pierre DO [Primary Care Provider] - 4-7 days Discharge Diet: Cardiac Discharge Activity: Increase activity as tolerated Patient Instructions: Opioid Safety Discharge Attestations Time Spent in Discharge Care*: less than 30 min Quality Metrics Clinical Quality Measures [ No reported AMI, CVA or VTE this stay] Coding Level of Care Code Acute Chg FW DC note Diagnoses Pneumonia J18.9 Atrial fibrillation with rapid ventricular response I48.91 Acute and chronic respiratory failure with hypoxia J96.21 CLL (chronic lymphocytic leukemia) C91.10 CAP (community acquired pneumonia) J18.9
--- NOTE | 2022-05-20 10:20 | PC.SOCIAL ---
IMM update IMM updated with patient and at bedside. Verbalized an understanding. Copy Pg 2 provided. Initialled, dated, timed, and placed in chart.
--- NOTE | 2022-05-20 13:00 | PC.NURSE ---
Pt ambulated down hallways with RT Pt use walker. Pt tolerated very good the walk down hallways.
--- NOTE | 2022-05-20 14:00 | PC.NURSE ---
Discharge to home pt and stated they don't need any services at home. brought pt's portable tank in their car. pt was up w/walker and walking down hallways this morning. discharge papers provided to pt and .
== END 2022-05-20 14:19 | disposition home or self-care (01) | DRG 193 ==
LOC: ER 18:03 → CSU 18:12
PROVIDERS: Admitting Provider Internal Medicine; Emergency Provider Emergency Medicine; PCP Family Medicine; Visit Provider Internal Medicine
DX: J18.9 Pneumonia, unspecified organism (principal); J96.21 Acute and chronic respiratory failure with hypoxia; C91.10 Chronic lymphocytic leukemia of B-cell type not having achieved remission; I13.0 Hypertensive heart and chronic kidney disease with heart failure and stage 1 through stage 4 chronic kidney disease, or unspecified chronic kidney disease; J43.9 Emphysema, unspecified; E11.22 Type 2 diabetes mellitus with diabetic chronic kidney disease; N18.9 Chronic kidney disease, unspecified; I50.9 Heart failure, unspecified; I48.91 Unspecified atrial fibrillation; E78.5 Hyperlipidemia, unspecified; K21.9 Gastro-esophageal reflux disease without esophagitis; Z87.891 Personal history of nicotine dependence; G24.01 Drug induced subacute dyskinesia; R45.1 Restlessness and agitation; Z79.51 Long term (current) use of inhaled steroids; Z79.84 Long term (current) use of oral hypoglycemic drugs
CPT/HCPCS: 36415; 36416; 36600; 51702; 71045; 71250; 80048; 80053; 81001; 82803; 82962; 83605; 83735; 83880; 84145; 84443; 85025; 85610; 85730; 86140; 86403; 87040; 87449; 87635; 93005; 94640; 94660; 94760; 96365; 96367; 96372; 96375; 99291; J0696; J1200; J1815; J2405; J2543; J3370; J3475; J3490; J7040; J7050; Q0144

== ENCOUNTER → 2022-08-24 12:00 | Outpatient (BNVA) | payer MEDICARE, BC, SELFPAY | PROVIDERS: PCP Family Medicine; Visit Provider Internal Medicine Cardiovascular Disease | DX: I13.0 Hypertensive heart and chronic kidney disease with heart failure and stage 1 through stage 4 chronic kidney disease, or unspecified chronic kidney disease (principal); E11.22 Type 2 diabetes mellitus with diabetic chronic kidney disease; N18.9 Chronic kidney disease, unspecified; I50.30 Unspecified diastolic (congestive) heart failure; Z87.891 Personal history of nicotine dependence; Z79.84 Long term (current) use of oral hypoglycemic drugs; I48.92 Unspecified atrial flutter; J44.9 Chronic obstructive pulmonary disease, unspecified; Z79.01 Long term (current) use of anticoagulants | CPT/HCPCS: 99213 ==

== ENCOUNTER → 2022-08-28 12:15 | Outpatient (BNVA) | payer MEDICARE, BC, SELFPAY | PROVIDERS: PCP Family Medicine; Visit Provider Family Medicine | DX: E11.9 Type 2 diabetes mellitus without complications (principal) | CPT/HCPCS: 20605; 80053; 83036 ==

== ENCOUNTER 2022-08-31 12:05 | Oncology outpatient (recurring) (ONCR) | payer MEDICARE, BC, SELFPAY ==
[2022-08-31 12:32] LABS: Basophils % 0.1 %; Eosinophils % 0.1 %; Hematocrit 47.3 % (42.0-52.0); Hemoglobin 14.8 g/dL (11.7-16.6); Lymphocytes # 5.7 10^3/uL (0.8-4.8); Lymphocytes % 29.5 %; Mean Corpuscular HGB Conc 31.3 g/dL (30.0-36.0); Mean Corpuscular Hemoglobin 30.1 pg (28.0-34.0); Mean Corpuscular Volume 96.1 fl (80-94); Mean Platelet Volume 9.6 fL (7.4-10.4); Monocytes # 0.8 10^3/uL (0.2-0.9); Monocytes % 3.9 %; Neutrophils # 12.73 10^3/uL (1.8-7.7); Neutrophils % 65.5 %; Nucleated Red Blood Cells % 0 %; Platelet Count 247 10^3/cmm (130-400); Red Blood Count 4.92 10^6/uL (4.1-5.3); Red Cell Distribution Width 14.3 % (12.1-15.1); White Blood Count 19.4 10^3/uL (4.0-10.0)
[2022-08-31 12:54] LABS: Alanine Aminotransferase 17 U/L (0-41); Albumin Level 4.1 g/dL (3.5-5.2); Alkaline Phosphatase 114 U/L (40-130); Anion Gap 16.3 (5-19); Aspartate Amino Transferase 15 U/L (0-40); Blood Urea Nitrogen 46 mg/dL (8-23); Calcium 9.4 mg/dL (8.5-10.5); Carbon Dioxide 24 mmol/L (22-29); Chloride 103 mmol/L (98-107); Globulin 2.7 g/dL (1.3-4.6); Glucose 173 mg/dL (65-115); Lactate Dehydrogenase 184 U/L (135-225); Osmolality Calculated 304 mOsm/kg (285-295); Potassium 4.3 mmol/L (3.5-5.1); Sodium 139 mmol/L (136-145); Total Bilirubin 0.3 mg/dL (0.15-1.2); Total Protein 6.8 g/dL (6.6-8.7)
[2022-08-31 13:39] LABS: Slide Review Slide Review Perform
== END 2022-09-05 23:59 | disposition home or self-care (01) ==
PROVIDERS: PCP Family Medicine; Visit Provider Internal Medicine Hematology & Oncology
DX: C91.10 Chronic lymphocytic leukemia of B-cell type not having achieved remission (principal); N28.89 Other specified disorders of kidney and ureter; Z87.891 Personal history of nicotine dependence
CPT/HCPCS: 36415; 80053; 83615; 85025

== ENCOUNTER 2022-09-21 04:02 | Inpatient (IN) | payer MEDICARE, BC, SELFPAY ==
[2022-09-21] VITALS (32 sets, daily range): BP systolic 107–187; BP diastolic 69–81; PULSE 60–77; RESP 16–30; TEMP 36.5–37; O2SAT 91–99; BMI 25.8
--- NOTE | 2022-09-21 04:07 | XRR_ITS ---
PROCEDURE INFORMATION: Exam: XR Chest Exam date and time: 09/21/2022 4:12 AM Age: 82 years old Clinical indication: Cough and shortness of breath; Prior surgery; Surgery type: Cervical fusion. Gb; Patient HX: Cough with SOB. Copd. TECHNIQUE: Imaging protocol: Radiologic exam of the chest. Views: 1 view. COMPARISON: CT chest wo con [id number] 05/19/2022 12:57 PM FINDINGS: Lungs: The lungs are somewhat hyperinflated with increased interstitial markings, likely representing COPD. There is streaky airspace opacities in the lower lungs, right greater than left, concerning for superimposed pneumonia. Pleural spaces: Unremarkable. No pleural effusion. No pneumothorax. Heart/Mediastinum: Stable cardiomediastinal silhouette. Bones/joints: Cervical spine fusion hardware noted. Degenerative changes of the spine seen. XR/XR chest 1V portable [id number] IMPRESSION: Imaging findings concerning for bilateral lower lobe pneumonia, involving mainly the right lower lobe. Clinical correlation is recommended. COPD changes.
--- NOTE | 2022-09-21 04:08 | W.ED.SOB ---
HPI - SOB/Dyspnea General: Chief Complaint: Shortness of Breath/Dyspnea Stated Complaint: SOB Time Seen by Provider: 09/21/22 04:05 Source: patient and EMS Mode of arrival: EMS Limitations: no limitations History of Present Illness: HPI Narrative: 82-year-old male has a history of COPD along with CHF he states over the last 2 to 3 days he has had cough along with low-grade fever. He wears 2 to 3 L of oxygen at baseline EMS states they have had him on 4 L does have some wheezing here he did not receive any steroids or breathing treatments he denies any pain denies any worsening proving factors. Associated symptoms: Reports fever(s); Deny abdominal pain, chest pain, nausea or vomiting Review of Systems Const: Reports: fever(s) Eyes: Denies: blurry vision or eye discomfort ENMT: Denies: throat pain or dental pain Card: Denies: chest pain Resp: Reports: dyspnea and productive cough GI: Denies: abdominal pain, nausea, vomiting or diarrhea : Denies: dysuria Musc: Denies: neck pain or back pain Skin/Breast: Denies: rash Neuro: Denies: headache(s) Psych: Denies: depression Fidencio/Lymph: Denies: easy bruising All/Imm: Denies: urticaria PFSH ED PFSH: Medical History Acute and chronic respiratory failure with hypoxia Atopic dermatitis, unspecified Atrial fibrillation with rapid ventricular response CAP (community acquired pneumonia) CKD (chronic kidney disease) CKD (chronic kidney disease), stage IV CLL (chronic lymphocytic leukemia) COPD (chronic obstructive pulmonary disease) Dyslipidemia Edema leg Essential (primary) hypertension GERD (gastroesophageal reflux disease) Gout, unspecified Long-term (current) use of anticoagulants, INR goal 2.0-3.0 Lymphocytosis Orthopnea Pain in left finger(s) Pain in right knee Pneumonia Type 2 diabetes mellitus without complications Unspecified atrial fibrillation Surgical History History of cholecystectomy History of left hip replacement Dr. Bennett - 11/2021 at [place], [place] History of prostate surgery History of total knee replacement Family History Other Cancer Hypertension Lung disease Denies family history of Diabetes CAD (coronary artery disease) Clotting disorder Dementia Hyperlipidemia Psychiatric illness Chronic kidney disease (CKD) Suicide Anesthesia complication Bleeding disorder Stroke Social History Smoking and tobacco status: former smoker Quit status (tobacco): has quit using tobacco Year quit tobacco: 2009 - 1PPD x 50 Years Second hand smoke exposure: No Alcohol intake: current Lives independently: Yes Household members: spouse Marital status: Current occupational status: retired Current gender identity: Male Physical Exam Const: COMMON NORMALS: patient oriented x3 HENMT: COMMON NORMALS: normocephalic and atraumatic HEAD & SCALP: normocephalic and atraumatic Eye: COMMON NORMALS: Equal, round and reactive pupils present and EOMs intact bilaterally PUPIL: Yes Equal, round and reactive pupils present Neck/C-Spine: COMMON NORMALS: full ROM and supple Chest: COMMONS NORMALS: normal inspection of the chest and normal palpation of entire chest wall Resp: COMMON NORMALS: No retractions and No use of accessory muscles AUSCULTATION: wheezes Cardio: COMMON NORMALS: regular rate, regular rhythm and No murmurs present (Cardio) RATE: regular rate RHYTHM: regular rhythm GI: COMMON NORMALS: Normal to inspection, nondistended, normoactive bowel sounds present, Soft to palpation, non-tender and no masses PALPATION: Yes Soft to palpation Extremity: COMMON NORMALS: normal to inspection and full ROM Neuro: COMMON NORMALS: patient oriented x3, moves all extremities and no focal motor deficits Psych: COMMON NORMALS: mental status grossly normal, Normal thought process present and cooperative THOUGHT PROCESS: Normal thought process present Skin: COMMON NORMALS: no rashes or lesions noted and no wounds GENERAL SKIN EXAM: no rashes or lesions noted Course Vital Signs: Vital signs: Vital Signs Temperature 98.6 F 09/21/22 04:03 Pulse Rate 66 09/21/22 04:45 Respiratory Rate 21 H 09/21/22 04:45 Blood Pressure 107/81 09/21/22 04:32 Pulse Oximetry 95 09/21/22 04:45 Oxygen Delivery Me thod 09/21/22 04:03 Oxygen Flow Rate 4 09/21/22 04:03 MDM - SOB/Dyspnea Medical Decision Making Patient presents here with cough dyspnea along with low-grade fever patient have a slight right lower lobe pneumonia he is requiring 4 L of oxygen here he typically wears 2 spoke to the hospitalist and will admit at this time. Lab Data 09/21/22 04:45 09/21/22 04:45 Labs/Radiology: Laboratory Results WBC 20.3 10^3/uL (4.0-10.0) H 09/21/22 04:45 RBC 4.65 10^6/uL (4.1-5.3) 09/21/22 04:45 Hgb 14.5 g/dL (11.7-16.6) 09/21/22 04:45 Hct 44.4 % (42.0-52.0) 09/21/22 04:45 MCV 95.5 fl (80-94) H 09/21/22 04:45 MCH 31.2 pg (28.0-34.0) 09/21/22 04:45 MCHC 32.7 g/dL (30.0-36.0) 09/21/22 04:45 RDW 13.9 % (12.1-15.1) 09/21/22 04:45 Plt Count 169 10^3/cmm (130-400) 09/21/22 04:45 MPV 9.7 fL (7.4-10.4) 09/21/22 04:45 Lymph % (Auto) Not Reportable 09/21/22 04:45 [place] % (Auto) Not Reportable 09/21/22 04:45 Lymph # (Auto) Not Reportable 09/21/22 04:45 [place] # (Auto) Not Reportable 09/21/22 04:45 Total Counted 100 (0-100) 09/21/22 04:45 Atypical Lymphs % 2.0 % (0-5) 09/21/22 04:45 Absolute Neutrophils 10.2 10^3/cmm (1.4-6.5) H 09/21/22 04:45 Segmented Neutrophils 49 % 09/21/22 04:45 Abs Segm Neuts (Man) 9.9 10/cmm (1.6-7.1) H 09/21/22 04:45 Band Neutrophils 1.0 % 09/21/22 04:45 Abs Band Neuts (Man) 0.2 10^3/cmm (0.0-1.2) 09/21/22 04:45 Absolute Lymphocytes 9.1 10^3/cmm (1.2-3.4) H 09/21/22 04:45 Lymphocytes (Manual) 43 % 09/21/22 04:45 Monocytes (Manual) 4.0 % 09/21/22 04:45 Absolute Monocytes 0.8 10^3/cmm (0.1-0.6) H 09/21/22 04:45 Eosinophils (Manual) 0 % 09/21/22 04:45 Absolute Eosinophils 0.0 10^3/cmm (0.0-0.7) 09/21/22 04:45 Basophils (Manual) 0.0 % 09/21/22 04:45 Absolute Basophils 0.0 10^3/cmm (0.0-0.2) 09/21/22 04:45 Metamyelocytes 1.0 % 09/21/22 04:45 Platelet Estimate Normal (Normal) 09/21/22 04:45 Macrocytosis 2+ H 09/21/22 04:45 PT 29.80 SECONDS (12.1-14.9) H 09/21/22 04:45 INR 2.71 (0.8-1.2) H 09/21/22 04:45 Specimen Type Arterial 09/21/22 04:32 Sample Site Radial, left 09/21/22 04:32 ABG pH 7.44 (7.35-7.45) 09/21/22 04:32 ABG pCO2 39.9 mmHg (35-45) 09/21/22 04:32 ABG pO2 77.0 mmHg (80.0-100.0) L 09/21/22 04:32 ABG HCO3 26.8 mmol/L (22-26) H 09/21/22 04:32 ABG Base Excess 2.4 mmol/L (-2.0-2.0) H 09/21/22 04:32 Hema Test Pos 09/21/22 04:32 Hematocrit 46.3 % (42-52) 09/21/22 04:32 Hgb O2 Saturation 94.9 % (95-100) L 09/21/22 04:32 Carboxyhemoglobin 1.3 %THgb (0.4-20.1) 09/21/22 04:32 Methemoglobin 0.3 % (0.4-1.5) L 09/21/22 04:32 Total Hemoglobin 15.1 g/dL (14-18) 09/21/22 04:32 O2 Delivery Device Nc 09/21/22 04:32 O2 Liters/Min 4.0 % 09/21/22 04:32 Trauma Doctor ID [email or web address] 09/21/22 04:32 Sodium 138 mmol/L (136-145) 09/21/22 04:45 Potassium 4.6 mmol/L (3.5-5.1) 09/21/22 04:45 Chloride 102 mmol/L (98-107) 09/21/22 04:45 Carbon Dioxide 28 mmol/L (22-29) 09/21/22 04:45 Anion Gap 12.6 (5-19) 09/21/22 04:45 BUN 28 mg/dL (8-23) H 09/21/22 04:45 Creatinine 1.3 mg/dL (0.7-1.2) H 09/21/22 04:45 GFR Calculation Not Reportable 09/21/22 04:45 Glucose 115 mg/dL (65-115) 09/21/22 04:45 Calculated Osmolality 292 mOsm/kg (285-295) 09/21/22 04:45 Calcium 8.9 mg/dL (8.5-10.5) 09/21/22 04:45 Total Bilirubin 0.7 mg/dL (0.15-1.2) 09/21/22 04:45 AST 12 U/L (0-40) 09/21/22 04:45 ALT 19 U/L (0-41) 09/21/22 04:45 Alkaline Phosphatase 99 U/L (40-130) 09/21/22 04:45 NT-Pro-B Natriuret Pep 1037 pg/mL (0-450) H 09/21/22 04:45 Total Protein 6.5 g/dL (6.6-8.7) L 09/21/22 04:45 Albumin 3.8 g/dL (3.5-5.2) 09/21/22 04:45 Globulin 2.7 g/dL (1.3-4.6) 09/21/22 04:45 Influenza Type A Ag negative (Negative) 09/21/22 04:20 Influenza Type B Ag negative (Negative) 09/21/22 04:20 SARS-CoV-2 Ag (Rapid) negative (Negative) 09/21/22 04:20 EKG Data EKG 1: I personally reviewed and interpreted this EKG as follows: EKG Interpretation Date: 09/21/22 EKG interpretation time: 04:25 Interpretation: nsr hr [address] or t wave abnormalities qrs 88 qtc 410 Discharge Plan Discharge Patient Disposition: Admitted As Inpatient Clinical Impression: Acute exacerbation of chronic obstructive airways disease, Community acquired pneumonia Condition: Stable Coding Level of Care Code ED Business Intelligence Consultant for 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
--- NOTE | 2022-09-21 04:25 | ECG_ITS ---
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1940 Requested By: Selene Bryson Order Number: [id number] Reading MD: RAAD STANLEY Measurements Intervals [place] Rate: 66 P: 73 SD: 156 QRS: -19 QRSD: 88 T: 67 QT: 397 QTc: 416 Interpretive Statements SINUS RHYTHM POSSIBLE LEFT ATRIAL ENLARGEMENT [-0.1mV P-WAVE IN V1/V2] POSSIBLE RIGHT VENTRICULAR CONDUCTION DELAY [RSR (QR) IN V1/V2] SEPTAL MYOCARDIAL INFARCTION , OF INDETERMINATE AGE [40+ ms Q WAVE IN V1/V2] Compared to ECG 05/17/2022 22:01:25 Myocardial infarct finding now present Atrial fibrillation no longer present Left-axis deviation no longer present T-wave abnormality no longer present Possible ischemia no longer present Electronically Signed On 09-23-2022 23:41:25 CDT by RAAD STANLEY [id number]
[2022-09-21 04:44] LABS: Blood Gas Allen Test Pos; Blood Gas Sample Site Radial, left; Blood Gas Sample Type Arterial
[2022-09-21 04:48] LABS: Influenza A by IFA negative (Negative); Influenza B by IFA negative (Negative); SARS Covid-2 Antigen negative (Negative)
[2022-09-21 04:49] LABS: Hematocrit 44.4 % (42.0-52.0); Hemoglobin 14.5 g/dL (11.7-16.6); Mean Corpuscular HGB Conc 32.7 g/dL (30.0-36.0); Mean Corpuscular Hemoglobin 31.2 pg (28.0-34.0); Mean Corpuscular Volume 95.5 fl (80-94); Mean Platelet Volume 9.7 fL (7.4-10.4); Platelet Count 169 10^3/cmm (130-400); Red Blood Count 4.65 10^6/uL (4.1-5.3); Red Cell Distribution Width 13.9 % (12.1-15.1); White Blood Count 20.3 10^3/uL (4.0-10.0)
[2022-09-21 04:59] LABS: INR 2.71 (0.8-1.2)
[2022-09-21 05:00] LABS: Total Cells Counted 100 (0-100)
[2022-09-21 05:04] LABS: Absolute Segmented Neutrophil 9.9 10/cmm (1.6-7.1); Band Neutrophils Absolute 0.2 10^3/cmm (0.0-1.2); Lymphocytes 43 %; Monocytes Absolute 0.8 10^3/cmm (0.1-0.6); Segmented Neutrophils 49 %
[2022-09-21 05:05] LABS: Absolute Neutrophil 10.2 10^3/cmm (1.4-6.5); Eosinophils 0 %; Lymphocytes Absolute 9.1 10^3/cmm (1.2-3.4); Platelet Estimate Normal (Normal)
[2022-09-21 05:06] LABS: Macrocytosis 2+
[2022-09-21 05:14] LABS: Alanine Aminotransferase 19 U/L (0-41); Albumin Level 3.8 g/dL (3.5-5.2); Alkaline Phosphatase 99 U/L (40-130); Anion Gap 12.6 (5-19); Aspartate Amino Transferase 12 U/L (0-40); Blood Urea Nitrogen 28 mg/dL (8-23); Calcium 8.9 mg/dL (8.5-10.5); Carbon Dioxide 28 mmol/L (22-29); Chloride 102 mmol/L (98-107); Globulin 2.7 g/dL (1.3-4.6); Glucose 115 mg/dL (65-115); NT Pro B Type Natriuretic Pept 1037 pg/mL (0-450); Osmolality Calculated 292 mOsm/kg (285-295); Potassium 4.6 mmol/L (3.5-5.1); Sodium 138 mmol/L (136-145); Total Bilirubin 0.7 mg/dL (0.15-1.2); Total Protein 6.5 g/dL (6.6-8.7)
[2022-09-21] MEDS: cefTRIAXone 1,000 MG in sodium chloride 0.9% (plus) 50 ML 100 MG IV (05:42)
[2022-09-21] MEDS: albuterol 2.5 mg/3 mL Neb INHALATION (06:03)
[2022-09-21] MEDS: ipratropium 0.5 mg/2.5 mL Neb INHALATION (06:03)
[2022-09-21] MEDS: azithromycin 500 MG in sodium chloride 0.9% 250 ML 250 MG IV (06:18)
--- NOTE | 2022-09-21 06:40 | P.HP_ITS ---
Providers/Chief Complaint Admitting Physician: Aamir Silverio Primary Care Provider: Autumn Pierre DO Chief Complaint: SOB History of Present Illness Pleasant 82-year-old gentleman with history of COPD, normally on 2 L of oxygen, has a nebulizer at home, last 2 3 days has been significantly more short of breath, coughing up copious yellow phlegm. States I could fill buckets with it . In ER he is found to have findings concerning for bilateral lower lobe pneumonia, mainly right lower lobe. Review of Systems Const: Denies: fever(s), chills, body aches or malaise Eyes: Denies: change in vision, eye discomfort or eye redness ENMT: Denies: throat pain, oral sores or ear or mastoid pain Card: Denies: chest pain, edema, pre-syncope or dyspnea on exertion Resp: Reports: dyspnea, productive cough and change in phlegm color; Denies: hemoptysis GI: Denies: abdominal pain, nausea, vomiting, diarrhea, constipation, hematochezia or melena : Denies: flank pain, difficulty urinating, urinary frequency or hematuria Musc: Denies: back pain, joint swelling or joint redness Skin/Breast: Denies: rash or new lesions Neuro: Denies: headache(s), numbness in extremities, weakness in extremities, dizziness, confusion or seizure-like activity Endo: Denies: polyuria or polydipsia Fidencio/Lymph: Denies: easy bleeding or tender lymph nodes All/Imm: Denies: urticaria or tongue swelling Medications/Allergies Home Medications Medication Instructions Recorded Confirmed Last Taken Type vit C 250 mg-vit E 90 mg-zinc 40 1 tab PO DAILY 08/19/21 09/01/22 05/16/22 History mg-copper 1 [id number] capsule (PreserVision AREDS-2) metoprolol tartrate 25 mg tablet 25 mg PO DAILY PRN heartrate 11/22/21 09/01/22 Unknown History sennosides 8.6 mg-docusate sodium 1 tab-cap PO BID constipation #60 11/23/21 09/01/22 05/16/22 Rx 50 mg tablet (Senna-S) tabs potassium chloride 10 mEq 10 meq PO DAILY PRN Take with 02/03/22 09/01/22 Unknown Rx tablet,extended release fureosemide as needed #90 tabs fluticasone 500 mcg-salmeterol 50 1 inh inhalation BID #60 ea 04/06/22 09/01/22 05/16/22 Rx mcg/dose blistr powdr for inhalation (Advair Diskus) umeclidinium 62.5 mcg/actuation 1 inh inhalation DAILY #30 ea 04/06/22 09/01/22 05/17/22 Rx blister powder for inhalation (Incruse Ellipta) ipratropium 0.5 mg-albuterol 3 mg 3 ml inhalation Q6H PRN Shortness 05/16/22 09/01/22 05/17/22 Rx (2.5 mg base)/3 mL nebulization Of Breath #180 mL soln allopurinol 300 mg tablet 150 mg PO DAILY 05/17/22 09/01/22 05/16/22 History warfarin 2 mg tablet See Rx Instructions .Route .COMPLEX 05/17/22 09/13/22 05/14/22 History warfarin 3 mg tablet See Rx Instructions .Route .COMPLEX 05/17/22 09/13/22 05/16/22 History clonazepam 0.5 mg tablet 0.25 mg PO TID PRN agitation #30 05/20/22 09/01/22 Unknown Rx tabs amiodarone 200 mg tablet 100 mg PO BEDTIME #45 tabs 07/17/22 09/01/22 Unknown Rx albuterol sulfate 90 mcg/actuation 2 puff inhalation Q4H PRN 07/21/22 09/01/22 Unknown Rx aerosol inhaler Shortness Of Breath #8.5 grams furosemide 20 mg tablet 10 mg PO DAILY #45 tabs 07/24/22 09/01/22 Unknown Rx tamsulosin 0.4 mg capsule See Rx Instructions .Route 08/04/22 09/01/22 Unknown Rx .COMPLEX #90 caps atorvastatin 20 mg tablet See Rx Instructions .Route 08/14/22 09/01/22 Unknown Rx .COMPLEX #90 tabs levofloxacin 500 mg tablet 500 mg PO DAILY 7 days #7 tabs 08/28/22 09/01/22 Unknown Rx linagliptin 5 mg tablet (Tradjenta) 5 mg PO DAILY #90 tabs 08/28/22 09/01/22 Unknown Rx prednisone 20 mg tablet 40 mg PO DAILY #10 tabs 08/28/22 09/01/22 Unknown Rx citalopram 20 mg tablet See Rx Instructions .Route 09/04/22 Unknown Rx .COMPLEX #90 tabs albuterol sulfate 2.5 mg/3 mL 2.5 mg (3 mL) inhalation Q6H PRN 09/06/22 Unknown Rx (0.083 %) solution for nebulization shortness of breath or wheezing #360 mL Allergies Allergy/AdvReac Type Severity Reaction Status Date / Time No Known Allergies Allergy Verified 08/31/22 13:30 PFSH Acute PFSH: Medical History Acute and chronic respiratory failure with hypoxia Atopic dermatitis, unspecified Atrial fibrillation with rapid ventricular response CAP (community acquired pneumonia) CKD (chronic kidney disease) CKD (chronic kidney disease), stage IV CLL (chronic lymphocytic leukemia) COPD (chronic obstructive pulmonary disease) Dyslipidemia Edema leg Essential (primary) hypertension GERD (gastroesophageal reflux disease) Gout, unspecified Long-term (current) use of anticoagulants, INR goal 2.0-3.0 Lymphocytosis Orthopnea Pain in left finger(s) Pain in right knee Pneumonia Type 2 diabetes mellitus without complications Unspecified atrial fibrillation Surgical History History of cholecystectomy History of left hip replacement Dr. Bennett - 11/2021 at [place], [place] History of prostate surgery History of total knee replacement Family History Other Cancer Hypertension Lung disease Denies family history of Diabetes CAD (coronary artery disease) Clotting disorder Dementia Hyperlipidemia Psychiatric illness Chronic kidney disease (CKD) Suicide Anesthesia complication Bleeding disorder Stroke Social History Smoking and tobacco status: former smoker Quit status (tobacco): has quit using tobacco Year quit tobacco: 2009 - 1PPD x 50 Years Second hand smoke exposure: No Alcohol intake: current Lives independently: Yes Household members: spouse Marital status: Current occupational status: retired Current gender identity: Male Vitals/I&O/Wt Last Vital Signs Temp 98.6 F 09/21/22 04:03 Pulse 67 03/16/23 06:19 Resp 20 H 09/21/22 06:19 BP 166/76 09/21/22 06:19 Pulse Ox 92 09/21/22 06:19 O2 Del Method 09/21/22 06:04 O2 Flow Rate 4 09/21/22 06:04 09/20/22 09/20/22 09/21/22 14:59 22:59 06:59 Intake Total 50 / 50 Balance 50 / 50 Weight last 48 hrs Weight 81.647 kg Physical Exam Narrative: Accompanied by his Const: COMMON NORMALS: patient oriented x3 and alert GENERAL APPEARANCE: cooperative ORIENTATION/CONSCIOUSNESS: Yes awake HENMT: COMMON NORMALS: oropharynx normal Neck/C-Spine: COMMON NORMALS: no JVD Resp: COMMON NORMALS: normal respiratory effort and clear to auscultation bilaterally AUSCULTATION: rhonchi, wheezes (L) and diminished lung sounds Cardio: COMMON NORMALS: no JVD, regular rhythm, S1 normal heart sound present, S2 normal heart sound present and No murmurs present (Cardio) RHYTHM: regular rhythm HEART SOUNDS: S1 normal heart sound present and S2 normal heart sound present GI: COMMON NORMALS: Normal to inspection, nondistended, normoactive bowel sounds present, Soft to palpation and non-tender PALPATION: Yes Soft to palpation Extremity: COMMON NORMALS: no joint enlargement and no pedal edema Neuro: COMMON NORMALS: patient oriented x3 and moves all extremities SENSORIUM/ORIENTATION: Yes alert Skin: COMMON NORMALS: no rashes or lesions noted GENERAL SKIN EXAM: no rashes or lesions noted Data 09/21/22 04:45 09/21/22 04:45 Micro: Microbiology 09/21/22 06:03 Blood Culture - Preliminary Blood SPECIMEN COLLECTED 09/21/22 06:00 Blood Culture - Preliminary Blood SPECIMEN COLLECTED A&P Assessment and plan (1) Community acquired pneumonia: Worsening hypoxia, requiring 4 L as opposed to usual 2, not improving respirato ry symptoms with cough, productive of yellow sputum. Noted possible bilateral pneumonia worse in the right lower lobe. Chest x-ray results appreciated. Collect sputum culture. Continue oxygen support, wean down as tolerating. RT to assess and treat. Ceftriaxone, azithromycin. Flutter valve, I-S. Moderate risk group by curb 65, risk class IV by PSI, manage in the hospital. (2) Acute exacerbation of chronic obstructive airways disease: Severe COPD exacerbation with dyspnea, worsening hypoxia, productive cough of purulent yellow sputum. As above. Additionally continue Solu-Medrol, antibiotics as above, DuoNebs Plan CLL, under expectant management A-fib, on warfarin INR noted therapeutic. Follow up INR requested. CKD: Creatinine appears at baseline HLD HTN GERD Gout DM2: SSI, Accu-Cheks requested. CC diet. Other medical problems. Please reconcile medications once they are confirmed. Discussed with ER physician, ER documentation reviewed. Attestations 2 Medical Necessity Statement*: Admission of over 2 midnights is anticipated for assessment of management of community-acquired pneumonia, moderate risk for, ris k class for PSI, severe COPD exacerbation with underlying CLL, CKD, DM2 and additional comorbidities as above. Diagnoses Community acquired pneumonia J18.9 Acute exacerbation of chronic obstructive airways disease J44.1
[2022-09-21 07:09] LABS: Methemoglobin 0.3 % (0.4-1.5)
[2022-09-21 08:03] LABS: Glucose Point of Care 178 mg/dL (70-110)
[2022-09-21] MEDS: insulin lispro 100 unit/1 mL SUBCUT ×3 (08:03→17:21)
[2022-09-21] MEDS: citalopram 20 mg Tablet PO (08:03)
[2022-09-21] MEDS: allopurinol 300 mg Tablet 150 MG PO (08:03)
[2022-09-21] MEDS: sennosides-docusate Tablet 1 TAB PO ×2 (08:03→17:21)
[2022-09-21] MEDS: FUROsemide 20 mg Tablet 10 MG PO (08:04)
[2022-09-21] MEDS: ipratropium-albuterol 3 mL Neb INHALATION ×2 (08:12→14:00)
[2022-09-21 10:23] LABS: ABG PCO2 39.9 mmHg (35-45); ABG PH Result 7.44 (7.35-7.45); Arterial Blood Gas Hematocrit 46.3 % (42-52); Base Excess ABG 2.4 mmol/L (-2.0-2.0); Carboxyhemoglobin 1.3 %THgb (0.4-20.1); HCO3 ABG 26.8 mmol/L (22-26); HGB O2 Sat 94.9 % (95-100); Oxygen Device NC; Total Hemoglobin 15.1 g/dL (14-18)
[2022-09-21 10:32] LABS: Glucose Point of Care 193 mg/dL (70-110)
[2022-09-21] MEDS: warfarin 3 mg Tablet PO (14:21)
[2022-09-21 17:15] LABS: Glucose Point of Care 225 mg/dL (70-110)
[2022-09-21] MEDS: atorvastatin 40 mg Tablet 20 MG PO (21:08)
[2022-09-21] MEDS: tamsulosin 0.4 mg Capsule PO (21:09)
[2022-09-21 23:28] LABS: Glucose Point of Care 170 mg/dL (70-110)
[2022-09-22] VITALS (11 sets, daily range): BP systolic 150–176; BP diastolic 68–78; PULSE 55–88; RESP 16–28; TEMP 36.4–36.7; O2SAT 94–98
[2022-09-22 05:07] LABS: Basophils % 0.1 %; Hemoglobin 14.2 g/dL (11.7-16.6); Lymphocytes # 7.2 10^3/uL (0.8-4.8); Lymphocytes % 33.7 %; Mean Corpuscular HGB Conc 32.3 g/dL (30.0-36.0); Mean Corpuscular Hemoglobin 30.6 pg (28.0-34.0); Mean Corpuscular Volume 94.8 fl (80-94); Mean Platelet Volume 9.8 fL (7.4-10.4); Monocytes # 0.6 10^3/uL (0.2-0.9); Monocytes % 2.7 %; Neutrophils # 13.47 10^3/uL (1.8-7.7); Neutrophils % 62.9 %; Nucleated Red Blood Cells % 0 %; Platelet Count 174 10^3/cmm (130-400); Red Blood Count 4.64 10^6/uL (4.1-5.3); Red Cell Distribution Width 13.4 % (12.1-15.1); White Blood Count 21.4 10^3/uL (4.0-10.0)
[2022-09-22 05:19] LABS: INR 2.74 (0.8-1.2)
[2022-09-22] MEDS: azithromycin 500 MG in sodium chloride 0.9% 250 ML 250 MG IV (05:31)
[2022-09-22 05:38] LABS: Slide Review Slide Review Perform
[2022-09-22 05:43] LABS: Alanine Aminotransferase 16 U/L (0-41); Albumin Level 3.3 g/dL (3.5-5.2); Alkaline Phosphatase 85 U/L (40-130); Anion Gap 14.8 (5-19); Aspartate Amino Transferase 9 U/L (0-40); Blood Urea Nitrogen 37 mg/dL (8-23); Calcium 9.1 mg/dL (8.5-10.5); Carbon Dioxide 24 mmol/L (22-29); Chloride 106 mmol/L (98-107); Globulin 2.6 g/dL (1.3-4.6); Glucose 162 mg/dL (65-115); Osmolality Calculated 302 mOsm/kg (285-295); Potassium 4.8 mmol/L (3.5-5.1); Sodium 140 mmol/L (136-145); Total Bilirubin 0.4 mg/dL (0.15-1.2); Total Protein 5.9 g/dL (6.6-8.7)
[2022-09-22 06:43] LABS: Glucose Point of Care 245 mg/dL (70-110)
[2022-09-22] MEDS: cefTRIAXone 1,000 MG in sodium chloride 0.9% (plus) 50 ML 100 MG IV (07:00)
--- NOTE | 2022-09-22 11:35 | CTR_ITS ---
PROCEDURE INFORMATION: Exam: CT Chest Without Contrast; Diagnostic Exam date and time: 09/22/2022 12:09 PM Age: 82 years old Clinical indication: Shortness of breath; Additional info: SOB TECHNIQUE: Imaging protocol: Diagnostic computed tomography of the chest without contrast. Radiation optimization: All CT scans at this facility use at least one of these dose optimization techniques: automated exposure control; mA and/or kV adjustment per patient size (includes targeted exams where dose is matched to clinical indication); or iterative reconstruction. REPORTING DATA: Count of CT and Cardiac NM exams in prior 12 months: This patient has received 4 known CTs and 0 known cardiac nuclear medicine studies in the 12 months prior to the current study. COMPARISON: CT chest wo con [id number] 05/19/2022 12:57 PM RADIATION DOSE METRICS: Total DLP (mGy-cm): 501.34 FINDINGS: Lungs: Lingular and bibasilar right greater and left subsegmental atelectasis versus minimal infiltrate which appears somewhat localized in the right lower lobe, short-term 1 month follow-up exam advised to assess for resolution. Emphysematous changes. Bibasilar bronchiectasis. Pleural spaces: Trace right pleural effusion. Heart: Unremarkable. No cardiomegaly. No pericardial effusion. Coronary arteries: Coronary artery atherosclerotic calcifications. Lymph nodes: Scattered prominent subcentimeter short axis mediastinal lymph nodes, nonspecific. Vasculature: Ascending thoracic aorta somewhat prominent at 3.5 cm. Gallbladder and bile ducts: Cholecystectomy. Stomach and bowel: Constipation. Bones/joints: Unremarkable. No acute fracture. Soft tissues: Right kidney cyst suspected. CT/CT chest wo con [id number] IMPRESSION: 1. Lingular and bibasilar right greater than left subsegmental atelectasis versus minimal infiltrate which appears somewhat localized in the right lower lobe, short-term 1 month follow-up exam advised to assess for resolution. 2. Scattered prominent subcentimeter short axis mediastinal lymph nodes, nonspecific. 3. Constipation. 4. Ascending thoracic aorta somewhat prominent at 3.5 cm. 5. Coronary artery atherosclerotic calcifications. 6. Cholecystectomy. 7. Emphysematous changes. 8. Trace right pleural effusion. 9. Right kidney cyst suspected. 10. Bibasilar bronchiectasis.
[2022-09-22] MEDS: sennosides-docusate Tablet 1 TAB PO ×2 (12:31→18:43)
[2022-09-22] MEDS: citalopram 20 mg Tablet PO (12:32)
[2022-09-22] MEDS: allopurinol 300 mg Tablet 150 MG PO (12:32)
[2022-09-22] MEDS: FUROsemide 20 mg Tablet 10 MG PO (12:32)
[2022-09-22 12:46] LABS: Glucose Point of Care 242 mg/dL (70-110)
[2022-09-22] MEDS: ipratropium-albuterol 3 mL Neb INHALATION ×2 (13:16→20:40)
[2022-09-22] MEDS: insulin lispro 100 unit/1 mL SUBCUT ×3 (13:18→22:43)
[2022-09-22] MEDS: warfarin 3 mg Tablet PO (15:49)
--- NOTE | 2022-09-22 16:46 | P.PN_ITS ---
Subjective Subjective: Patient was seen this morning, continues to complain of shortness of breath with exertion, denies any fevers or chills Vitals/I&O/Wt Last Vital Signs Temp 98.0 F 09/22/22 12:00 Pulse 76 09/22/22 13:19 Resp 16 09/22/22 13:18 BP 158/74 09/22/22 12:00 Pulse Ox 94 09/22/22 13:18 O2 Del Method 09/22/22 13:18 O2 Flow Rate 2 09/22/22 04:00 09/22/22 09/22/22 09/22/22 06:59 14:59 22:59 Intake Total 350 / 1100 50 / 50 Balance 350 / 1100 50 / 50 Weight last 48 hrs Weight 81.647 kg Physical Exam Const: COMMON NORMALS: no acute distress and patient oriented x3 Resp: COMMON NORMALS: normal respiratory effort, No retractions and No use of accessory muscles AUSCULTATION: wheezes Cardio: COMMON NORMALS: regular rate, regular rhythm, S1 normal heart sound present and S2 normal heart sound present RATE: regular rate RHYTHM: regular rhythm HEART SOUNDS: S1 normal heart sound present and S2 normal heart sound present GI: COMMON NORMALS: Normal to inspection, nondistended, normoactive bowel so unds present and non-tender Extremity: COMMON NORMALS: no pedal edema Neuro: COMMON NORMALS: patient oriented x3 Psych: COMMON NORMALS: mental status grossly normal Data 09/22/22 04:28 09/22/22 04:28 Micro: Microbiology 09/21/22 10:25 Gram Stain - Final Sputum - Expectorated Sputum Sputum Culture - Preliminary 09/21/22 06:03 Blood Culture - Preliminary Blood NEGATIVE TO DATE 09/21/22 06:00 Blood Culture - Preliminary Blood NEGATIVE TO DATE A&P Assessment and plan (1) Community acquired pneumonia: Chest CT 1. ? Lingular and bibasilar right greater than left subsegmental atelectasis versus minimal infiltrate which appears somewhat localized in the right lower lobe, short-term 1 month follow-up exam advised to assess for resolution. 2. ? Scattered prominent subcentimeter short axis mediastinal lymph nodes, nonspecific. 3. ? Constipation. 4. ? Ascending thoracic aorta somewhat prominent at 3.5 cm. 5. ? Coronary artery atherosclerotic calcifications. 6. ? Cholecystectomy. 7. ? Emphysematous changes. 8.? Trace right pleural effusion. 9.? Right kidney cyst suspected. 10.? Bibasilar bronchiectasis.? -Continue Rocephin -Continue azithromycin (2) Acute exacerbation of chronic obstructive airways disease: Severe COPD exacerbation with dyspnea, worsening hypoxia, productive cough of purulent yellow sputum. As above. -Continue Solu-Medrol -Continue DuoNeb Plan CLL, under expectant management A-fib, on warfarin INR noted therapeutic. Follow up INR requested. CKD: Creatinine appears at baseline HLD HTN GERD Gout DM2: SSI, Accu-Cheks requested. CC diet. Other medical problems. Please reconcile medications once they are confirmed. Discussed with ER physician, ER documentation reviewed. Attestations Medical Necessity Statement*: Patient requires hospitalization for pneumonia Diagnoses Community acquired pneumonia J18.9 Acute exacerbation of chronic obstructive airways disease J44.1
[2022-09-22 17:19] LABS: Glucose Point of Care 189 mg/dL (70-110)
[2022-09-22] MEDS: guaiFENesin 600 mg Tablet PO (18:43)
[2022-09-22] MEDS: budesonide 0.5 mg/2 mL Neb INHALATION (20:40)
[2022-09-22] MEDS: tamsulosin 0.4 mg Capsule PO (21:11)
[2022-09-22] MEDS: atorvastatin 40 mg Tablet 20 MG PO (21:11)
[2022-09-22 21:20] LABS: Glucose Point of Care 219 mg/dL (70-110)
[2022-09-23] VITALS: BP 166/77; PULSE 64; RESP 19; TEMP 36.6; O2SAT 97
[2022-09-23 02:00] VITALS: PULSE 67; RESP 18; O2SAT 97
[2022-09-23 04:00] VITALS: BP 160/66; PULSE 68; RESP 15; TEMP 36.8; O2SAT 95
[2022-09-23 04:25] LABS: Basophils % 0.2 %; Hematocrit 43.4 % (42.0-52.0); Lymphocytes # 7.1 10^3/uL (0.8-4.8); Lymphocytes % 29.7 %; Mean Corpuscular HGB Conc 32.3 g/dL (30.0-36.0); Mean Corpuscular Hemoglobin 30.5 pg (28.0-34.0); Mean Corpuscular Volume 94.6 fl (80-94); Mean Platelet Volume 10.5 fL (7.4-10.4); Monocytes # 0.6 10^3/uL (0.2-0.9); Monocytes % 2.6 %; Neutrophils # 15.88 10^3/uL (1.8-7.7); Neutrophils % 66.6 %; Nucleated Red Blood Cells % 0 %; Platelet Count 195 10^3/cmm (130-400); Red Blood Count 4.59 10^6/uL (4.1-5.3); Red Cell Distribution Width 13.3 % (12.1-15.1); White Blood Count 23.8 10^3/uL (4.0-10.0)
[2022-09-23 04:54] LABS: NT Pro B Type Natriuretic Pept 1051 pg/mL (0-450); Procalcitonin 0.14 ng/mL (0-0.5)
[2022-09-23 04:56] LABS: Slide Review Slide Review Perform
[2022-09-23 05:07] LABS: Alanine Aminotransferase 15 U/L (0-41); Albumin Level 3.4 g/dL (3.5-5.2); Alkaline Phosphatase 93 U/L (40-130); Anion Gap 15.7 (5-19); Aspartate Amino Transferase 9 U/L (0-40); Blood Urea Nitrogen 52 mg/dL (8-23); C Reactive Protein 42.2 mg/L (0.0-4.9); Carbon Dioxide 24 mmol/L (22-29); Chloride 104 mmol/L (98-107); Globulin 2.5 g/dL (1.3-4.6); Glucose 156 mg/dL (65-115); Osmolality Calculated 305 mOsm/kg (285-295); Potassium 4.7 mmol/L (3.5-5.1); Sodium 139 mmol/L (136-145); Total Bilirubin 0.3 mg/dL (0.15-1.2); Total Protein 5.9 g/dL (6.6-8.7)
[2022-09-23 06:23] LABS: Glucose Point of Care 225 mg/dL (70-110)
[2022-09-23] MEDS: azithromycin 500 MG in sodium chloride 0.9% 250 ML 250 MG IV (06:35)
[2022-09-23 08:00] VITALS: BP 175/74; PULSE 64; PULSE 65; RESP 16; RESP 18; O2SAT 95; O2SAT 96
[2022-09-23] MEDS: budesonide 0.5 mg/2 mL Neb INHALATION (08:35)
[2022-09-23] MEDS: ipratropium-albuterol 3 mL Neb INHALATION (08:35)
[2022-09-23] MEDS: guaiFENesin 600 mg Tablet PO (08:51)
[2022-09-23] MEDS: sennosides-docusate Tablet 1 TAB PO (08:51)
[2022-09-23] MEDS: allopurinol 300 mg Tablet 150 MG PO (08:51)
[2022-09-23] MEDS: insulin lispro 100 unit/1 mL SUBCUT (08:51)
[2022-09-23] MEDS: citalopram 20 mg Tablet PO (08:51)
[2022-09-23] MEDS: FUROsemide 20 mg Tablet 10 MG PO (08:52)
--- NOTE | 2022-09-23 09:40 | PM.DCS ---
Discharge Providers Date of Admission: 09/21/22 05:21 Date of Discharge: September 23, 2022 Attending Provider at Admission: Aamir Silverio Attending Provider at Discharge: Je Rodriguez MD Primary Care Provider: Autumn Pierre DO Diagnoses at Discharge Discharge Diagnosis (1) Community acquired pneumonia: Status: Acute (2) Acute exacerbation of chronic obstructive airways disease: Status: Acute Reason for Visit Reason for Visit: SOB Hospital Course Hospital Course Pleasant 82-year-old gentleman with history of COPD, normally on 2 L of oxygen, has a nebulizer at home, last 2 3 days has been significantly more short of breath, coughing up copious yellow phlegm. This is a 82-year-old male who presents [facility] for complaints of shortness of breath, admitted to [facility] for COPD exacerbation, pneumonia. Received broad-spectrum antibiotic therapy, oxygen therapy, steroid therapy, clinically monitored. Overall patient clinically improved, discharged home on the present burst, with Levaquin with close follow-up with primary care provider as outpatient. Recheck INR on Sunday In terms of his chest CT 1. ? Lingular and bibasilar right greater than left subsegmental atelectasis versus minimal infiltrate which appears somewhat localized in the right lower lobe, short-term 1 month follow-up exam advised to assess for resolution. 2. ? Scattered prominent subcentimeter short axis mediastinal lymph nodes, -Patient was advised to follow-up with pulmonary in 1 month, he does have a history of smoking, quit over 14 years ago, this is his third episode of pneumonia in the last 6 months, Physical Exam Const: COMMON NORMALS: no acute distress and patient oriented x3 Resp: COMMON NORMALS: normal respiratory effort, No retractions, No use of accessory muscles and clear to auscultation bilaterally AUSCULTATION: clear to auscultation bilaterally Cardio: COMMON NORMALS: regular rate, regular rhythm, S1 normal heart sound present and S2 normal heart sound present RATE: regular rate RHYTHM: regular rhythm HEART SOUNDS: S1 normal heart sound present and S2 normal heart sound present GI: COMMON NORMALS: Normal to inspection, nondistended, normoactive bowel sounds present and non-tender Extremity: COMMON NORMALS: no pedal edema Neuro: COMMON NORMALS: patient oriented x3 Psych: COMMON NORMALS: mental status grossly normal Discharge Data Studies Completed and Pending Completed Studies During Hospitalization Category Date Time Status CT chest wo con [id number] Routine Cat Scan 09/22/22 11:35 Completed XR chest 1V portable [id number] Stat Exams 09/21/22 04:07 Completed Pending at discharge Category Date Time Status Bacterial Antigen Stat Lab 09/22/22 11:35 Ordered Blood Culture Stat Lab 09/21/22 06:03 Results C Reactive Protein AM LABS Lab 09/24/22 04:00 Ordered C Reactive Protein AM LABS Lab 09/25/22 04:00 Ordered Complete Blood Count w/Auto AM LABS Lab 09/24/22 04:00 Ordered Comprehensive Metabolic Panel AM LABS Lab 09/24/22 04:00 Ordered NT Pro B Type Natriuretic Pept QAM Lab 09/24/22 06:00 Ordered NT Pro B Type Natriuretic Pept QAM Lab 09/25/22 06:00 Ordered Procalcitonin AM LABS Lab 09/24/22 04:00 Ordered Procalcitonin AM LABS Lab 09/25/22 04:00 Ordered Sputum Culture and Gram Stain Routine Lab 09/21/22 10:25 Results Sputum Culture and Gram Stain Stat Lab 09/22/22 11:35 Ordered Radiology Impressions Chest X-Ray 09/21/22 04:07 IMPRESSION: Imaging findings concerning for bilateral lower lobe pneumonia, involving mainly the right lower lobe. Clinical correlation is recommended. COPD changes. Chest CT 09/22/22 11:35 IMPRESSION: 1. Lingular and bibasilar right greater than left subsegmental atelectasis versus minimal infiltrate which appears somewhat localized in the right lower lobe, short-term 1 month follow-up exam advised to assess for resolution. 2. Scattered prominent subcentimeter short axis mediastinal lymph nodes, nonspecific. 3. Constipation. 4. Ascending thoracic aorta somewhat prominent at 3.5 cm. 5. Coronary artery atherosclerotic calcifications. 6. Cholecystectomy. 7. Emphysematous changes. 8. Trace right pleural effusion. 9. Right kidney cyst suspected. 10. Bibasilar bronchiectasis. Laboratory Results WBC 23.8 10^3/uL (4.0-10.0) H 09/23/22 03:22 RBC 4.59 10^6/uL (4.1-5.3) 09/23/22 03:22 Hgb 14.0 g/dL (11.7-16.6) 09/23/22 03:22 Hct 43.4 % (42.0-52.0) 09/23/22 03:22 MCV 94.6 fl (80-94) H 09/23/22 03:22 MCH 30.5 pg (28.0-34.0) 09/23/22 03:22 MCHC 32.3 g/dL (30.0-36.0) 09/23/22 03:22 RDW 13.3 % (12.1-15.1) 09/23/22 03:22 Plt Count 195 10^3/cmm (130-400) 09/23/22 03:22 MPV 10.5 fL (7.4-10.4) H 09/23/22 03:22 Neut % (Auto) 66.6 % 09/23/22 03:22 Lymph % (Auto) 29.7 % 09/23/22 03:22 Sharkey % (Auto) 2.6 % 09/23/22 03:22 Eos % (Auto) 0.0 % 09/23/22 03:22 Baso % (Auto) 0.2 % 09/23/22 03:22 Neut # (Auto) 15.88 10^3/uL (1.8-7.7) H 09/23/22 03:22 Lymph # (Auto) 7.1 10^3/uL (0.8-4.8) H 09/23/22 03:22 Sharkey # (Auto) 0.6 10^3/uL (0.2-0.9) 09/23/22 03:22 Eos # (Auto) 0.0 10^3/uL (0.0-0.8) 09/23/22 03:22 Baso # (Auto) 0.0 10^3/uL (0.0-0.1) 09/23/22 03:22 Nucleated RBC % (auto) 0 % 09/23/22 03:22 Total Counted 100 (0-100) 09/21/22 04:45 Atypical Lymphs % 2.0 % (0-5) 09/21/22 04:45 Absolute Neutrophils 10.2 10^3/cmm (1.4-6.5) H 09/21/22 04:45 Segmented Neutrophils 49 % 09/21/22 04:45 Abs Segm Neuts (Man) 9.9 10/cmm (1.6-7.1) H 09/21/22 04:45 Band Neutrophils 1.0 % 09/21/22 04:45 Abs Band Neuts (Man) 0.2 10^3/cmm (0.0-1.2) 09/21/22 04:45 Absolute Lymphocytes 9.1 10^3/cmm (1.2-3.4) H 09/21/22 04:45 Lymphocytes (Manual) 43 % 09/21/22 04:45 Monocytes (Manual) 4.0 % 09/21/22 04:45 Absolute Monocytes 0.8 10^3/cmm (0.1-0.6) H 09/21/22 04:45 Eosinophils (Manual) 0 % 09/21/22 04:45 Absolute Eosinophils 0.0 10^3/cmm (0.0-0.7) 09/21/22 04:45 Basophils (Manual) 0.0 % 09/21/22 04:45 Absolute Basophils 0.0 10^3/cmm (0.0-0.2) 09/21/22 04:45 Metamyelocytes 1.0 % 09/21/22 04:45 Nucleated RBCs # 0.0 /100WBC 09/23/22 03:22 Platelet Estimate Normal (Normal) 09/21/22 04:45 Macrocytosis 2+ H 09/21/22 04:45 PT 30.00 SECONDS (12.1-14.9) H 09/22/22 04:28 INR 2.74 (0.8-1.2) H 09/22/22 04:28 Specimen Type Arterial 09/21/22 04:32 Sample Site Radial, left 09/21/22 04:32 ABG pH 7.44 (7.35-7.45) 09/21/22 04:32 ABG pCO2 39.9 mmHg (35-45) 09/21/22 04:32 ABG pO2 77.0 mmHg (80.0-100.0) L 09/21/22 04:32 ABG HCO3 26.8 mmol/L (22-26) H 09/21/22 04:32 ABG Base Excess 2.4 mmol/L (-2.0-2.0) H 09/21/22 04:32 Hema Test Pos 09/21/22 04:32 Hematocrit 46.3 % (42-52) 09/21/22 04:32 Hgb O2 Saturation 94.9 % (95-100) L 09/21/22 04:32 Carboxyhemoglobin 1.3 %THgb (0.4-20.1) 09/21/22 04:32 Methemoglobin 0.3 % (0.4-1.5) L 09/21/22 04:32 Total Hemoglobin 15.1 g/dL (14-18) 09/21/22 04:32 O2 Delivery Device Nc 09/21/22 04:32 O2 Liters/Min 4.0 % 09/21/22 04:32 Sap Hana Developer ID [email or web address] 09/21/22 04:32 Sodium 139 mmol/L (136-145) 09/23/22 03:22 Potassium 4.7 mmol/L (3.5-5.1) 09/23/22 03:22 Chloride 104 mmol/L (98-107) 09/23/22 03:22 Carbon Dioxide 24 mmol/L (22-29) 09/23/22 03:22 Anion Gap 15.7 (5-19) 09/23/22 03:22 BUN 52 mg/dL (8-23) H 09/23/22 03:22 Creatinine 1.4 mg/dL (0.7-1.2) H 09/23/22 03:22 GFR Calculation Not Reportable 09/23/22 03:22 Glucose 156 mg/dL (65-115) H 09/23/22 03:22 POC Glucose 225 mg/dL (70-110) H 09/23/22 06:05 Calculated Osmolality 305 mOsm/kg (285-295) H 09/23/22 03:22 Calcium 9.0 mg/dL (8.5-10.5) 09/23/22 03:22 Total Bilirubin 0.3 mg/dL (0.15-1.2) 09/23/22 03:22 AST 9 U/L (0-40) 09/23/22 03:22 ALT 15 U/L (0-41) 09/23/22 03:22 Alkaline Phosphatase 93 U/L (40-130) 09/23/22 03:22 C-Reactive Protein 42.2 mg/L (0.0-4.9) H 09/23/22 03:22 NT-Pro-B Natriuret Pep 1051 pg/mL (0-450) H 09/23/22 03:22 Total Protein 5.9 g/dL (6.6-8.7) L 09/23/22 03:22 Albumin 3.4 g/dL (3.5-5.2) L 09/23/22 03:22 Globulin 2.5 g/dL (1.3-4.6) 09/23/22 03:22 Procalcitonin 0.14 ng/mL (0-0.5) 09/23/22 03:22 Influenza Type A Ag negative (Negative) 09/21/22 04:20 Influenza Type B Ag negative (Negative) 09/21/22 04:20 SARS-CoV-2 Ag (Rapid) negative (Negative) 09/21/22 04:20 Vitals Last Vital Signs Temp 98.3 F 09/23/22 04:00 Pulse 64 09/23/22 08:00 Resp 16 09/23/22 08:00 BP 175/74 09/23/22 08:00 Pulse Ox 96 09/23/22 08:00 O2 Del Method 09/23/22 08:00 O2 Flow Rate 0 09/23/22 08:00 Discharge Plan Discharge Patient Disposition: Home Condition: Stable Prescriptions: New warfarin 2 mg Tablet 2 mg PO SuSa@1400 30 Days Qty: 9 0RF warfarin [Jantoven] 3 mg Tablet 3 mg PO MoTuWeThFr@1400 30 Days Qty: 22 0RF prednisone 20 mg tablet 20 mg PO BID 5 Days Qty: 10 0RF guaifenesin [Mucinex] 600 mg Tablet Extended Release 12hr 600 mg PO BID PRN (Reason: congestion) 30 Days Qty: 30 0RF levofloxacin 750 mg tablet 750 mg PO DAILY 5 Days Qty: 5 0RF Continued PreserVision AREDS-2 250-90-40-1 mg capsule 1 tab PO DAILY potassium chloride 10 mEq tablet extended release 10 meq PO DAILY PRN (Reason: Take with fureosemide as needed) Qty: 90 1RF Tradjenta 5 mg tablet 5 mg PO DAILY Qty: 90 1RF fluticasone propion-salmeterol [Advair Diskus] 500-50 mcg/dose blister with device 1 inh inhalation BID Qty: 60 6RF Rx Instructions: 340 B Incruse Ellipta 62.5 mcg/actuation blister with device 1 inh inhalation DAILY Qty: 30 6RF ipratropium-albuterol 0.5 mg-3 mg(2.5 mg base)/3 mL solution for nebulization 3 ml inhalation Q6H PRN (Reason: Shortness Of Breath) Qty: 180 3RF amiodarone 200 mg tablet 100 mg PO BEDTIME Qty: 45 1RF albuterol sulfate 90 mcg/actuation HFA aerosol inhaler 2 puff inhalation Q4H PRN (Reason: Shortness Of Breath) Qty: 8.5 6RF furosemide 20 mg tablet 10 mg PO DAILY Qty: 45 1RF tamsulosin 0.4 mg capsule See Rx Instructions .ROUTE .COMPLEX Qty: 90 0RF Dose Instruction: TAKE 1 CAPSULE BY MOUTH IN THE EVENING Rx Instructions: TAKE 1 CAPSULE BY MOUTH IN THE EVENING atorvastatin 20 mg tablet See Rx Instructions .ROUTE .COMPLEX Qty: 90 0RF Dose Instruction: Take 1 tablet by mouth once daily Rx Instructions: Take 1 tablet by mouth once daily citalopram 20 mg tablet See Rx Instructions .ROUTE .COMPLEX Qty: 90 0RF Dose Instruction: TAKE 1 TABLET BY MOUTH ONCE DAILY IN THE MORNING Rx Instructions: TAKE 1 TABLET BY MOUTH ONCE DAILY IN THE MORNING albuterol sulfate 2.5 mg /3 mL (0.083 %) solution for nebulization 2.5 mg inhalation Q6H PRN (Reason: shortness of breath or wheezing) Qty: 360 1RF metoprolol tartrate 25 mg tablet 25 mg PO DAILY PRN (Reason: heartrate) sennosides-docusate sodium [Senna-S] 8.6-50 mg tablet 1 tab-cap PO BID Qty: 60 0RF allopurinol 300 mg tablet 150 mg PO DAILY Discontinued warfarin 3 mg tablet 3 mg PO DAILY Protocol: Dose Management Condition: Sunday Dose/Route: 3 mg Instruction: 1 x 3 mg tablet Condition: Sunday Dose/Route: 3 mg Instruction: 1 x 3 mg tablet Condition: Sunday Dose/Route: 3 mg Instruction: 1 x 3 mg tablet Condition: Sunday Dose/Route: 3 mg Instruction: 1 x 3 mg tablet Condition: Dose/Route: 3 mg Instruction: 1 x 3 mg tablet Condition: Sunday Dose/Route: 3 mg Instruction: 1 x 3 mg tablet Condition: Sunday Dose/Route: 3 mg Instruction: 1 x 3 mg tablet Protocol Text: Adjustment Start Date: 09/21/22 INR Value: 29.80 SECONDS INR Date: 09/21/22 Recheck Date: 09/28/22 Discharge Orders: Discharge Order (Routine); Ordered 09/23/22 Ordered By: Je Rodriguez Referrals: Fredrick Asif MD [Physician] - 1 month Autumn Pierre DO [Primary Care Provider] - 1-3 days Discharge Diet: Cardiac Discharge Activity: Resume usual activity Patient Instructions: Opioid Safety Activity Restrictions/Additional Instructions: - Please see your [facility] care provider, on Sunday, for recheck INR -Take antibiotics as prescribed -Take steroids as prescribed -Follow-up with pulmonary in 1 month Discharge Attestations Time Spent in Discharge Care*: greater than 30 min Quality Metrics Clinical Quality Measures [ No reported AMI, CVA or VTE this stay] Coding Level of Care Code 30584 Total time (in minutes) for Discharge: 40 Diagnoses Community acquired pneumonia J18.9 Acute exacerbation of chronic obstructive airways disease J44.1
[2022-09-23 11:09] VITALS: BP 175/74; PULSE 64; RESP 16; O2SAT 96
== END 2022-09-23 10:30 | disposition home or self-care (01) | DRG 190 ==
LOC: ER 05:21 → MEDSURG 06:14
PROVIDERS: Internal Medicine; Admitting Provider Internal Medicine; Emergency Provider Emergency Medicine; PCP Family Medicine; Visit Provider Family Medicine
DX: J44.1 Chronic obstructive pulmonary disease with (acute) exacerbation (principal); J18.9 Pneumonia, unspecified organism; J96.11 Chronic respiratory failure with hypoxia; N18.4 Chronic kidney disease, stage 4 (severe); C91.10 Chronic lymphocytic leukemia of B-cell type not having achieved remission; J44.0 Chronic obstructive pulmonary disease with (acute) lower respiratory infection; Z99.81 Dependence on supplemental oxygen; I48.91 Unspecified atrial fibrillation; I12.9 Hypertensive chronic kidney disease with stage 1 through stage 4 chronic kidney disease, or unspecified chronic kidney disease; E78.5 Hyperlipidemia, unspecified; K21.9 Gastro-esophageal reflux disease without esophagitis; M10.9 Gout, unspecified; Z96.642 Presence of left artificial hip joint; Z87.891 Personal history of nicotine dependence; E11.22 Type 2 diabetes mellitus with diabetic chronic kidney disease
CPT/HCPCS: 36415; 36416; 36600; 71045; 71250; 80048; 80053; 82805; 82962; 83880; 84145; 85007; 85025; 85610; 86140; 87040; 87070; 87205; 87426; 87804; 93005; 94640; 94664; 96365; 96367; 96372; 96375; 99285; J0456; J0696; J1815; J2920; J2930; J7050; J7613; J7626; J7644

== ENCOUNTER → 2022-10-16 15:42 | Outpatient (BNVA) | payer MEDICARE, BC, SELFPAY | PROVIDERS: PCP Family Medicine; Visit Provider Internal Medicine Pulmonary Disease | DX: J44.9 Chronic obstructive pulmonary disease, unspecified (principal); Z87.891 Personal history of nicotine dependence; I50.30 Unspecified diastolic (congestive) heart failure; N18.9 Chronic kidney disease, unspecified; I48.0 Paroxysmal atrial fibrillation; Z79.01 Long term (current) use of anticoagulants | CPT/HCPCS: 99214 ==

== ENCOUNTER 2022-10-24 09:02 | Outpatient (CLI) | payer MEDICARE, BC, SELFPAY ==
[2022-10-24 10:24] LABS: Hematocrit 46.5 % (42.0-52.0); Hemoglobin 15.1 g/dL (11.7-16.6); Mean Corpuscular HGB Conc 32.5 g/dL (30.0-36.0); Mean Corpuscular Hemoglobin 31.3 pg (28.0-34.0); Mean Corpuscular Volume 96.5 fl (80-94); Mean Platelet Volume 9.1 fL (7.4-10.4); Platelet Count 169 10^3/cmm (130-400); Red Blood Count 4.82 10^6/uL (4.1-5.3); Red Cell Distribution Width 13.2 % (12.1-15.1); White Blood Count 15.6 10^3/uL (4.0-10.0)
[2022-10-24 10:46] LABS: Albumin Level 3.9 g/dL (3.5-5.2); Anion Gap 11.7 (5-19); Blood Urea Nitrogen 30 mg/dL (8-23); Calcium 8.7 mg/dL (8.5-10.5); Carbon Dioxide 27 mmol/L (22-29); Chloride 104 mmol/L (98-107); Glucose 117 mg/dL (65-115); Phosphorus 2.9 mg/dL (2.5-4.5); Potassium 4.7 mmol/L (3.5-5.1); Sodium 138 mmol/L (136-145)
[2022-10-24 10:50] LABS: Creatinine Urine, Random 148 mg/dL (39-259)
[2022-10-24 10:53] LABS: Calcium 8.8 mg/dL (8.5-10.5)
[2022-10-24 11:01] LABS: Parathyroid Hormone 69.2 pg/mL (15-65); Slide Review Slide Review Perform
[2022-10-24 11:02] LABS: Absolute Eosinophils 0.3 10^3/cmm (0.0-0.7); Absolute Neutrophil 8.1 10^3/cmm (1.4-6.5); Absolute Segmented Neutrophil 7.8 10/cmm (1.6-7.1); Band Neutrophils Absolute 0.3 10^3/cmm (0.0-1.2); Eosinophils 2 %; Lymphocytes 28 %; Lymphocytes Absolute 6.2 10^3/cmm (1.2-3.4); Monocytes Absolute 0.9 10^3/cmm (0.1-0.6); Platelet Estimate Decreased (Normal); Segmented Neutrophils 50 %; Total Cells Counted 100 (0-100)
[2022-10-24 11:05] LABS: Microalbum Creatinine Ratio Ur 385 mg/dL (0-20); Microalbumin Random Urine 57 ug/dL (0-20)
== END 2022-10-24 09:03 | disposition home or self-care (01) ==
PROVIDERS: PCP Family Medicine; Visit Provider Internal Medicine Nephrology
DX: N18.31 Chronic kidney disease, stage 3a (principal)
CPT/HCPCS: 36415; 80069; 82044; 82310; 83970; 85007; 85025

== ENCOUNTER 2022-11-07 09:41 | Outpatient (CLI) | payer MEDICARE, BC, SELFPAY ==
[2022-11-07 10:24] LABS: Basophils # 0.1 10^3/uL (0.0-0.1); Basophils % 0.3 %; Eosinophils # 0.6 10^3/uL (0.0-0.8); Eosinophils % 3.8 %; Hematocrit 45.3 % (42.0-52.0); Hemoglobin 14.7 g/dL (11.7-16.6); Lymphocytes # 7.1 10^3/uL (0.8-4.8); Lymphocytes % 46.6 %; Mean Corpuscular HGB Conc 32.5 g/dL (30.0-36.0); Mean Corpuscular Hemoglobin 31.4 pg (28.0-34.0); Mean Corpuscular Volume 96.8 fl (80-94); Mean Platelet Volume 9.2 fL (7.4-10.4); Monocytes # 0.7 10^3/uL (0.2-0.9); Monocytes % 4.4 %; Neutrophils # 6.74 10^3/uL (1.8-7.7); Neutrophils % 44.3 %; Nucleated Red Blood Cells % 0 %; Platelet Count 178 10^3/cmm (130-400); Red Blood Count 4.68 10^6/uL (4.1-5.3); Red Cell Distribution Width 13.4 % (12.1-15.1); White Blood Count 15.2 10^3/uL (4.0-10.0)
[2022-11-07 10:43] LABS: Albumin Level 3.7 g/dL (3.5-5.2); Anion Gap 13.7 (5-19); Blood Urea Nitrogen 37 mg/dL (8-23); Carbon Dioxide 27 mmol/L (22-29); Chloride 104 mmol/L (98-107); Glucose 171 mg/dL (65-115); Potassium 4.7 mmol/L (3.5-5.1); Sodium 140 mmol/L (136-145)
[2022-11-07 11:02] LABS: Creatinine Urine, Random 169 mg/dL (39-259)
[2022-11-07 11:17] LABS: Microalbum Creatinine Ratio Ur 260 mg/dL (0-20); Microalbumin Random Urine 44 ug/dL (0-20)
[2022-11-07 16:45] LABS: Calcium 9.1 mg/dL (8.5-10.5)
[2022-11-07 16:50] LABS: Parathyroid Hormone 71.5 pg/mL (15-65)
== END 2022-11-07 09:42 | disposition home or self-care (01) ==
LOC: LAB 09:45
PROVIDERS: PCP Family Medicine; Visit Provider Registered Nurse
DX: N18.31 Chronic kidney disease, stage 3a (principal)
CPT/HCPCS: 36415; 80069; 82044; 82310; 83970; 85025

== ENCOUNTER 2022-11-11 09:20 | Outpatient (CLI) | payer MEDICARE, BC, SELFPAY ==
--- NOTE | 2022-11-11 09:45 | CT_ITS ---
WS: [id number] CT CHEST TECHNIQUE: Noncontrast CT of the chest with coronal and sagittal reformatted images. CLINICAL INFORMATION: Follow Up COMPARISON: CT chest September 22, 2022 DLP: 305.[address] scans at [facility] use at least one of these dose optimization techniques: automated e xposure control; mA and/or kV adjustment per patient size (includes targeted exams where dose is matc hed to clinical indication); or iterative reconstruction. FINDINGS: Moderate chronic emphysematous changes. No acute pulmonary infiltrates. Subsegmental atelectasis in t he lingula. No focal pneumonia or pleural fluid. Previously described patchy infiltrate in RIGHT lowe r lobe has resolved. Slight bilateral lower lobe bronchiectasis unchanged. Tiny noncalcified nodule R IGHT lower lobe laterally measuring 4 mm unchanged. Ascending thoracic aorta measures 3.4 cm unchanged. Normal caliber descending thoracic aorta. Aortic calcification. Coronary calcification. No mediastinal or hilar lymphadenopathy. No axillary lymphaden opathy. Cholecystectomy clips. Adrenal glands are normal. Fatty atrophy of the pancreas. Tiny esophageal hiat al hernia. Noncontrast spleen is normal. Hypertrophic changes thoracic spine. CT/CT chest wo con [id number] IMPRESSION: 1. Previously described infiltrate RIGHT lower lobe has resolved. Trace residu al subsegmental atelectasis in the RIGHT lower lobe and lingula. 2. No new or progressed or infiltrates. No pleural fluid. 3. Stable bibasilar bronchiectasis. 4. Stable ascending thoracic aorta measuring 3.4 CCM. 5. Mild aortic and coronary calcification. 6. No mediastinal or hilar lymphadenopathy. 7. Prior cholecystectomy.
== END 2022-11-11 09:21 | disposition home or self-care (01) ==
LOC: RAD 09:23
PROVIDERS: PCP Family Medicine; Visit Provider Internal Medicine Pulmonary Disease
DX: J44.9 Chronic obstructive pulmonary disease, unspecified (principal); Z87.891 Personal history of nicotine dependence
CPT/HCPCS: 71250

== ENCOUNTER 2023-01-01 18:58 | Inpatient (IN) | payer MEDICARE, BC, SELFPAY ==
[2023-01-01] VITALS (7 sets, daily range): BP systolic 130–173; BP diastolic 70–88; PULSE 58–76; RESP 16–18; TEMP 36.5–37.3; O2SAT 88–93; BMI 25.8
--- NOTE | 2023-01-01 19:07 | XRR_ITS ---
PROCEDURE INFORMATION: Exam: XR Chest Exam date and time: 01/01/2023 7:11 PM Age: 82 years old Clinical indication: Injury or trauma; Fall; Blunt trauma (contusions or hematomas); Patient HX: PT fell today; C/O pain RT hip; FX RT hip TECHNIQUE: Imaging protocol: Radiologic exam of the chest. Views: 1 view. COMPARISON: CT chest con [id number] 11/11/2022 9:31 AM FINDINGS: Lungs: Unremarkable. No consolidation. Pleural spaces: Unremarkable. No pleural effusion. No pneumothorax. Heart/Mediastinum: Unremarkable. No cardiomegaly. Bones/joints: Stable postoperative metallic fixation of the cervical spine with or without metallic artifact. Mild dextroscoliosis. XR/XR chest 1V portable [id number] IMPRESSION: No acute findings.
--- NOTE | 2023-01-01 19:07 | ECG_ITS ---
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 Measurements Intervals [place] Rate: 57 P: 74 DE: 161 QRS: -9 QRSD: 91 T: 76 QT: 435 QTc: 424 Interpretive Statements SINUS BRADYCARDIA POSSIBLE LEFT ATRIAL ENLARGEMENT [-0.1mV P-WAVE IN V1/V2] INCOMPLETE RIGHT BUNDLE BRANCH BLOCK [90+ ms QRS DURATION, TERMINAL R IN V1/V2, 40+ ms S IN I/aVL/V4/V5/V6] NONSPECIFIC T-WAVE ABNORMALITY Compared to ECG 09/21/2022 04:25:02 Incomplete right bundle-branch block now present T-wave abnormality now present Sinus rhythm no longer present Myocardial infarct finding no longer present Electronically Signed On 01-01-2023 23:18:57 CDT by Cameron Lopez M.D. [email or web address]
--- NOTE | 2023-01-01 19:07 | XRR_ITS ---
PROCEDURE INFORMATION: Exam: XR Right Hip Exam date and time: 01/01/2023 7:13 PM Age: 82 years old Clinical indication: Injury or trauma; Blunt trauma (contusions or hematomas); Right; Patient HX: Fall today; C/O RT hip pain and RT foot is externally rotated TECHNIQUE: Imaging protocol: Radiologic exam of the right hip. Views: 1 view hip with pelvis when performed. COMPARISON: [place] [id number] 01/29/2022 4:59 PM FINDINGS: Bones/joints: Interval impacted right femoral neck fracture with angulation. Soft tissues: Unremarkable. Vasculature: Mild calcified peripheral vascular disease. XR/XR hip RT 2-3V wo/w pel* [id number] IMPRESSION: Interval impacted right femoral neck fracture with angulation.
--- NOTE | 2023-01-01 19:08 | W.ED.FALL ---
HPI - Fall General: Chief Complaint: Fall Stated Complaint: fall Time Seen by Provider: 01/01/23 18:59 Source: patient and EMS Mode of arrival: EMS Limitations: no limitations History of Present Illness: 82-year-old male states that his horse knocked him over roughly 30 minutes ago he states he landed on his buttocks and right side he had right hip pain since fall unable to stand on that hip rates pain 8 out of 10 he denies any other injuries denies any his head denies any chest or abdominal pain. Associated symptoms-after fall: Denies abdominal pain, chest pain, headache(s) or neck pain Review of Systems Const: Denies: fever(s) or chills ENMT: Denies: throat pain or dental pain Card: Denies: chest pain Resp: Denies: dyspnea GI: Denies: abdominal pain, nausea, vomiting or diarrhea : Denies: dysuria Musc: Reports: extremity pain; Denies: neck pain or back pain Skin/Breast: Denies: rash Neuro: Denies: headache(s) PFSH ED PFSH: Medical History Acute and chronic respiratory failure with hypoxia Atopic dermatitis, unspecified Atrial fibrillation with rapid ventricular response CAP (community acquired pneumonia) CKD (chronic kidney disease) CKD (chronic kidney disease), stage IV CLL (chronic lymphocytic leukemia) COPD (chronic obstructive pulmonary disease) Dyslipidemia Edema leg Essential (primary) hypertension GERD (gastroesophageal reflux disease) Gout, unspecified Long-term (current) use of anticoagulants, INR goal 2.0-3.0 Lymphocytosis Orthopnea Pain in left finger(s) Pain in right knee Pneumonia Type 2 diabetes mellitus without complications Unspecified atrial fibrillation Surgical History History of cholecystectomy History of left hip replacement Dr. Bennett - 11/2021 at [place], [place] History of prostate surgery History of total knee replacement Family History Other Cancer Hypertension Lung disease Denies family history of Diabetes CAD (coronary artery disease) Clotting disorder Dementia Hyperlipidemia Psychiatric illness Chronic kidney disease (CKD) Suicide Anesthesia complication Bleeding disorder Stroke Social History Smoking and tobacco status: former smoker Quit status (tobacco): has quit using tobacco Year quit tobacco: 2010 - 1PPD x 50 Years Second hand smoke exposure: No Alcohol intake: current Substance/Drug Use: never Lives independently: Yes Household members: spouse Marital status: Current occupational status: retired Do you think of yourself as: Straight/Heterosexual Current gender identity: Male Physical Exam Const: COMMON NORMALS: patient oriented x3 HENMT: COMMON NORMALS: normocephalic and atraumatic HEAD & SCALP: normocephalic and atraumatic Eye: COMMON NORMALS: EOMs intact bilaterally and conjunctivae normal CONJUNCTIVA: Yes conjunctivae normal Neck/C-Spine: COMMON NORMALS: supple CERVICAL SPINE: Yes cervical ROM normal and No Cervical spine tenderness Chest: COMMONS NORMALS: normal inspection of the chest and normal palpation of entire chest wall Resp: COMMON NORMALS: normal respiratory effort and clear to auscultation bilaterally AUSCULTATION: clear to auscultation bilaterally Cardio: COMMON NORMALS: regular rate and regular rhythm RATE: regular rate RHYTHM: regular rhythm GI: COMMON NORMALS: Normal to inspection, nondistended, normoactive bowel sounds present, Soft to palpation and non-tender PALPATION: Yes Soft to palpation Extremity: OTHER: Tenderness to right hip Neuro: COMMON NORMALS: patient oriented x3 Psych: COMMON NORMALS: mental status grossly normal Skin: COMMON NORMALS: no rashes or lesions noted GENERAL SKIN EXAM: no rashes or lesions noted Course Vital Signs: Vital signs: Vital Signs Temperature 98.4 F 01/01/23 19:00 Pulse Rate 58 L 01/01/23 19:31 Respiratory Rate 16 01/01/23 19:42 Blood Pressure 130/88 01/01/23 19:31 Pulse Oximetry 93 01/01/23 19:31 Oxygen Delivery Me thod Nasal Cannula 01/01/23 19:31 Oxygen Flow Rate 2 01/01/23 19:31 MDM - Fall Medical Decision Making Patient presents here with a right hip fracture he has no other injuries noted I spoke to the hospitalist along with orthopedist and will admit at this time. Medical Records I reviewed the patient's medical records. Lab Data I reviewed the patient's lab results. 01/01/23 19:08 01/01/23 19:08 Laboratory Results WBC 16.3 10^3/uL (4.0-10.0) H 01/01/23 19:08 RBC 4.85 10^6/uL (4.1-5.3) 01/01/23 19:08 Hgb 14.8 g/dL (11.7-16.6) 01/01/23 19:08 Hct 46.4 % (42.0-52.0) 01/01/23 19:08 MCV 95.7 fl (80-94) H 01/01/23 19:08 MCH 30.5 pg (28.0-34.0) 01/01/23 19:08 MCHC 31.9 g/dL (30.0-36.0) 01/01/23 19:08 RDW 13.2 % (12.1-15.1) 01/01/23 19:08 Plt Count 179 10^3/cmm (130-400) 01/01/23 19:08 MPV 9.5 fL (7.4-10.4) 01/01/23 19:08 Neut % (Auto) 48.2 % 01/01/23 19:08 Lymph % (Auto) 41.7 % 01/01/23 19:08 [place] % (Auto) 5.2 % 01/01/23 19:08 Eos % (Auto) 3.3 % 01/01/23 19:08 Baso % (Auto) 0.3 % 01/01/23 19:08 Neut # (Auto) 7.87 10^3/uL (1.8-7.7) H 01/01/23 19:08 Lymph # (Auto) 6.8 10^3/uL (0.8-4.8) H 01/01/23 19:08 [place] # (Auto) 0.9 10^3/uL (0.2-0.9) 01/01/23 19:08 Eos # (Auto) 0.5 10^3/uL (0.0-0.8) 01/01/23 19:08 Baso # (Auto) 0.1 10^3/uL (0.0-0.1) 01/01/23 19:08 Nucleated RBC % (auto) 0 % 01/01/23 19:08 Nucleated RBCs # 0.0 /100WBC 01/01/23 19:08 PT 30.60 SECONDS (12.1-14.9) H 01/01/23 19:08 INR 2.80 (0.8-1.2) H 01/01/23 19:08 Sodium 141 mmol/L (136-145) 01/01/23 19:08 Potassium 4.9 mmol/L (3.5-5.1) 01/01/23 19:08 Chloride 105 mmol/L (98-107) 01/01/23 19:08 Carbon Dioxide 25 mmol/L (22-29) 01/01/23 19:08 Anion Gap 15.9 (5-19) 01/01/23 19:08 BUN 27 mg/dL (8-23) H 01/01/23 19:08 Creatinine 1.5 mg/dL (0.7-1.2) H 01/01/23 19:08 GFR Calculation Not Reportable 01/01/23 19:08 Glucose 109 mg/dL (65-115) 01/01/23 19:08 Calculated Osmolality 298 mOsm/kg (285-295) H 01/01/23 19:08 Calcium 8.7 mg/dL (8.5-10.5) 01/01/23 19:08 Total Bilirubin 0.3 mg/dL (0.15-1.2) 01/01/23 19:08 AST 29 U/L (0-40) 01/01/23 19:08 ALT 36 U/L (0-41) 01/01/23 19:08 Alkaline Phosphatase 98 U/L (40-130) 01/01/23 19:08 Total Protein 6.0 g/dL (6.6-8.7) L 01/01/23 19:08 Albumin 3.9 g/dL (3.5-5.2) 01/01/23 19:08 Globulin 2.1 g/dL (1.3-4.6) 01/01/23 19:08 Discharge Plan Discharge Patient Disposition: Admitted As Inpatient Clinical Impression: Closed fracture of right hip Condition: Stable Prescriptions: No Action PreserVision AREDS-2 250-90-40-1 mg capsule 1 tab PO DAILY potassium chloride 10 mEq tablet extended release 10 meq PO DAILY PRN (Reason: Take with fureosemide as needed) Qty: 90 1RF Tradjenta 5 mg tablet 5 mg PO DAILY Qty: 90 1RF fluticasone propion-salmeterol [Advair Diskus] 500-50 mcg/dose blister with device 1 inh inhalation BID Qty: 60 6RF Rx Instructions: 340 B Incruse Ellipta 62.5 mcg/actuation blister with device 1 inh inhalation DAILY Qty: 30 6RF warfarin 3 mg tablet 3 mg PO DIRECTED Qty: 90 0RF Protocol: Dose Management Condition: Sunday Dose/Route: 3 mg Instruction: 1 x 3 mg tablet Condition: Sunday Dose/Route: 3 mg Instruction: 1 x 3 mg tablet Condition: Sunday Dose/Route: 3 mg Instruction: 1 x 3 mg tablet Condition: Sunday Dose/Route: 3 mg Instruction: 1 x 3 mg tablet Condition: Dose/Route: 3 mg Instruction: 1 x 3 mg tablet Condition: Sunday Dose/Route: 3 mg Instruction: 1 x 3 mg tablet Condition: Sunday Dose/Route: 3 mg Instruction: 1 x 3 mg tablet Protocol Text: Adjustment Start Date: Sunday01/01/23 INR Value: 2.4 INR Date: 01/01/23 Recheck Date: 01/08/23 Rx Instructions: Take 1 tab on Sun, , Sun and Sun amiodarone 200 mg tablet 100 mg PO BEDTIME Qty: 45 1RF albuterol sulfate 90 mcg/actuation HFA aerosol inhaler 2 puff inhalation Q4H PRN (Reason: Shortness Of Breath) Qty: 8.5 6RF furosemide 20 mg tablet 10 mg PO DAILY Qty: 45 1RF albuterol sulfate 2.5 mg /3 mL (0.083 %) solution for nebulization 2.5 mg inhalation Q6H PRN (Reason: shortness of breath or wheezing) Qty: 360 1RF citalopram 20 mg tablet See Rx Instructions .ROUTE .COMPLEX Qty: 90 1RF Dose Instruction: TAKE 1 TABLET BY MOUTH ONCE DAILY IN THE MORNING Rx Instructions: TAKE 1 TABLET BY MOUTH ONCE DAILY IN THE MORNING metoprolol tartrate 25 mg tablet 25 mg PO BID PRN (Reason: heartrate) Qty: 180 3RF atorvastatin 20 mg tablet See Rx Instructions .ROUTE .COMPLEX Qty: 90 0RF Dose Instruction: Take 1 tablet by mouth once daily Rx Instructions: Take 1 tablet by mouth once daily tamsulosin 0.4 mg capsule See Rx Instructions .ROUTE .COMPLEX Qty: 90 0RF Dose Instruction: TAKE 1 CAPSULE BY MOUTH IN THE EVENING Rx Instructions: TAKE 1 CAPSULE BY MOUTH IN THE EVENING citalopram 10 mg tablet See Rx Instructions .ROUTE .COMPLEX Qty: 90 0RF Dose Instruction: TAKE 1 TABLET BY MOUTH ONCE DAILY ( TAKE WITH 20 MG) Rx Instructions: TAKE 1 TABLET BY MOUTH ONCE DAILY ( TAKE WITH 20 MG) warfarin 2 mg tablet 2 mg PO DIRECTED Qty: 90 0RF Protocol: Dose Management Condition: Sunday Dose/Route: 3 mg Instruction: 1 x 3 mg tablet Condition: Sunday Dose/Route: 3 mg Instruction: 1 x 3 mg tablet Condition: Sunday Dose/Route: 3 mg Instruction: 1 x 3 mg tablet Condition: Sunday Dose/Route: 3 mg Instruction: 1 x 3 mg tablet Condition: Dose/Route: 3 mg Instruction: 1 x 3 mg tablet Condition: Sunday Dose/Route: 3 mg Instruction: 1 x 3 mg tablet Condition: Sunday Dose/Route: 3 mg Instruction: 1 x 3 mg tablet Protocol Text: Adjustment Start Date: Sunday01/01/23 INR Value: 2.4 INR Date: 01/01/23 Recheck Date: 01/08/23 Rx Instructions: take 1 tab on Sunday, Sun, and Sunday ipratropium-albuterol 0.5 mg-3 mg(2.5 mg base)/3 mL solution for nebulization 3 ml inhalation Q6H PRN (Reason: Shortness Of Breath) Qty: 180 3RF sennosides-docusate sodium [Senna-S] 8.6-50 mg tablet 1 tab-cap PO BID Qty: 60 0RF allopurinol 300 mg tablet 150 mg PO DAILY Referrals: Autumn Pierre DO [Primary Care Provider] - Coding Level of Care Code ED Teacher [employer]oc[employer] for 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
[2023-01-01 19:13] LABS: Basophils # 0.1 10^3/uL (0.0-0.1); Basophils % 0.3 %; Eosinophils # 0.5 10^3/uL (0.0-0.8); Eosinophils % 3.3 %; Hematocrit 46.4 % (42.0-52.0); Hemoglobin 14.8 g/dL (11.7-16.6); Lymphocytes # 6.8 10^3/uL (0.8-4.8); Lymphocytes % 41.7 %; Mean Corpuscular HGB Conc 31.9 g/dL (30.0-36.0); Mean Corpuscular Hemoglobin 30.5 pg (28.0-34.0); Mean Corpuscular Volume 95.7 fl (80-94); Mean Platelet Volume 9.5 fL (7.4-10.4); Monocytes # 0.9 10^3/uL (0.2-0.9); Monocytes % 5.2 %; Neutrophils # 7.87 10^3/uL (1.8-7.7); Neutrophils % 48.2 %; Nucleated Red Blood Cells % 0 %; Platelet Count 179 10^3/cmm (130-400); Red Blood Count 4.85 10^6/uL (4.1-5.3); Red Cell Distribution Width 13.2 % (12.1-15.1); White Blood Count 16.3 10^3/uL (4.0-10.0)
--- NOTE | 2023-01-01 19:31 | XRR_ITS ---
PROCEDURE INFORMATION: Exam: XR Right Knee Exam date and time: 01/01/2023 7:56 PM Age: 82 years old Clinical indication: Injury or trauma; Fall; Blunt trauma; Knee; Right; Patient HX: PT fell today; C/O RT hip pain-rt hip FX TECHNIQUE: Imaging protocol: Radiologic exam of the right knee. Views: 3 views. COMPARISON: No relevant prior studies available. FINDINGS: Bones/joints: Right total knee replacement. Soft tissues: Normal. Vasculature: [id number] calcified peripheral vascular disease. XR/XR knee RT 3V* [id number] IMPRESSION: Right total knee replacement.
--- NOTE | 2023-01-01 19:31 | XRR_ITS ---
PROCEDURE INFORMATION: Exam: XR Pelvis Exam date and time: 01/01/2023 7:56 PM Age: 82 years old Clinical indication: Injury or trauma; Fall; Blunt trauma (contusions or hematomas); Right; Prior surgery; Surgery date: 6+ months; Surgery type: Lt hip replacement; Patient HX: PT fell today; C/O RT hip pain-rt hip FX TECHNIQUE: Imaging protocol: Radiologic exam of the pelvis. Views: 1 or 2 view. COMPARISON: CR (PELVIS, ) 01/01/2023 7:13 PM FINDINGS: Bones/joints: Total left hip replacement. Impacted angulated right femoral neck fracture. Soft tissues: Unremarkable. XR/XR pelvis 1-2V* [id number] IMPRESSION: Impacted angulated right femoral neck fracture.
--- NOTE | 2023-01-01 19:31 | XRR_ITS ---
PROCEDURE INFORMATION: Exam: XR Right Femur Exam date and time: 01/01/2023 7:56 PM Age: 82 years old Clinical indication: Injury or trauma; Fall; Blunt trauma; Thigh or upper leg; Right; Patient HX: PT fell today; C/O RT hip pain; RT hip FX TECHNIQUE: Imaging protocol: Radiologic exam of the right femur. Views: 2 views. COMPARISON: CR (PELVIS, ) 01/01/2023 7:13 PM FINDINGS: Bones/joints: Impacted angulated right femoral neck fracture with impaction inferior medially and distraction superior laterally. Right total knee replacement. Soft tissues: Unremarkable. Vasculature: Mild calcified peripheral vascular disease. XR/XR femur RT min 2V* [id number] IMPRESSION: Impacted angulated right femoral neck fracture with impaction inferior medially and distraction superior laterally.
[2023-01-01 19:36] LABS: Alanine Aminotransferase 36 U/L (0-41); Albumin Level 3.9 g/dL (3.5-5.2); Alkaline Phosphatase 98 U/L (40-130); Anion Gap 15.9 (5-19); Aspartate Amino Transferase 29 U/L (0-40); Blood Urea Nitrogen 27 mg/dL (8-23); Calcium 8.7 mg/dL (8.5-10.5); Carbon Dioxide 25 mmol/L (22-29); Chloride 105 mmol/L (98-107); Globulin 2.1 g/dL (1.3-4.6); Glucose 109 mg/dL (65-115); Osmolality Calculated 298 mOsm/kg (285-295); Potassium 4.9 mmol/L (3.5-5.1); Sodium 141 mmol/L (136-145); Total Bilirubin 0.3 mg/dL (0.15-1.2)
[2023-01-01] MEDS: morphine 4 mg/mL SDV 1 mL IVP ×2 (19:42→22:19)
[2023-01-01] MEDS: ondansetron 2 mg/ML SDV 2 mL 4 MG IVP (19:42)
[2023-01-01 19:45] LABS: Slide Review Slide Review Perform
[2023-01-01] MEDS: phytonadione (ADULT) 10 MG in sodium chloride 0.9% 50 ML 153 MG IV (19:46)
[2023-01-01 20:41] LABS: Glucose Point of Care 117 mg/dL (70-110)
--- NOTE | 2023-01-01 22:12 | P.HP_ITS ---
Providers/Chief Complaint Admitting Physician: [facility] DO Primary Care Provider: Autumn Pierre DO Chief Complaint: fall History of Present Illness Jesús Cole is a 82 year old male who was placing his 3-year-old grandson on the horse when the horse moved and knocked him over on accident. Unfortunately, he fell onto his right hip and was unable to move. He was found to have a right hip fracture. Interestingly, this happened approximately 1 year ago to his left hip when he was trying to tie his shoes. Review of Systems Const: Denies: fever(s) or chills Eyes: Denies: change in vision ENMT: Denies: throat pain or nasal congestion Card: Denies: chest pain or palpitations Resp: Denies: productive cough GI: Denies: abdominal pain, nausea, vomiting or change in stool character : Denies: difficulty urinating or dysuria Musc: Denies: back pain or extremity pain Skin/Breast: Denies: rash or lesions Neuro: Denies: headache(s) or dizziness Psych: Denies: anxiety or depression Fidencio/Lymph: Denies: easy bruising or easy bleeding Medications/Allergies Home Medications Medication Instructions Recorded Confirmed Last Taken Type vit C 250 mg-vit E 90 mg-zinc 40 1 tab PO DAILY 08/19/21 10/16/22 05/16/22 History mg-copper 1 [id number] capsule (PreserVision AREDS-2) sennosides 8.6 mg-docusate sodium 1 tab-cap PO BID constipation #60 11/23/21 10/16/22 05/16/22 Rx 50 mg tablet (Senna-S) tabs potassium chloride 10 mEq 10 meq PO DAILY PRN Take with 02/03/22 09/28/22 Unknown Rx tablet,extended release fureosemide as needed #90 tabs fluticasone 500 mcg-salmeterol 50 1 inh inhalation BID #60 ea 04/06/22 10/16/22 05/16/22 Rx mcg/dose blistr powdr for inhalation (Advair Diskus) umeclidinium 62.5 mcg/actuation 1 inh inhalation DAILY #30 ea 04/06/22 10/16/22 05/17/22 Rx blister powder for inhalation (Incruse Ellipta) allopurinol 300 mg tablet 150 mg PO DAILY 05/17/22 10/16/22 05/16/22 History amiodarone 200 mg tablet 100 mg PO BEDTIME #45 tabs 07/17/22 10/16/22 Unknown Rx albuterol sulfate 90 mcg/actuation 2 puff inhalation Q4H PRN 07/21/22 10/16/22 Unknown Rx aerosol inhaler Shortness Of Breath #8.5 grams furosemide 20 mg tablet 10 mg PO DAILY #45 tabs 07/24/22 10/16/22 Unknown Rx linagliptin 5 mg tablet (Tradjenta) 5 mg PO DAILY #90 tabs 08/28/22 10/16/22 Unknown Rx albuterol sulfate 2.5 mg/3 mL 2.5 mg (3 mL) inhalation Q6H PRN 09/06/22 10/16/22 Unknown Rx (0.083 %) solution for nebulization shortness of breath or wheezing #360 mL citalopram 20 mg tablet See Rx Instructions .Route 09/28/22 10/16/22 Unknown Rx .COMPLEX #90 tabs metoprolol tartrate 25 mg tablet 25 mg PO BID PRN heartrate #180 10/06/22 10/16/22 Unknown Rx tabs warfarin 3 mg tablet 3 mg PO DIRECTED #90 tabs 10/25/22 01/01/23 Unknown Rx atorvastatin 20 mg tablet See Rx Instructions .Route 11/06/22 Unknown Rx .COMPLEX #90 tabs tamsulosin 0.4 mg capsule See Rx Instructions .Route 11/06/22 Unknown Rx .COMPLEX #90 caps citalopram 10 mg tablet See Rx Instructions .Route 12/20/22 Unknown Rx .COMPLEX #90 tabs warfarin 2 mg tablet 2 mg PO DIRECTED #90 tabs 12/25/22 01/01/23 Unknown Rx ipratropium 0.5 mg-albuterol 3 mg 3 ml inhalation Q6H PRN Shortness 12/28/22 Unknown Rx (2.5 mg base)/3 mL nebulization Of Breath #180 mL soln Allergies Allergy/AdvReac Type Severity Reaction Status Date / Time No Known Allergies Allergy Verified 01/01/23 19:09 PFSH Acute PFSH: Medical History Acute and chronic respiratory failure with hypoxia Atopic dermatitis, unspecified Atrial fibrillation with rapid ventricular response CAP (community acquired pneumonia) CKD (chronic kidney disease) CKD (chronic kidney disease), stage IV CLL (chronic lymphocytic leukemia) COPD (chronic obstructive pulmonary disease) Dyslipidemia Edema leg Essential (primary) hypertension GERD (gastroesophageal reflux disease) Gout, unspecified Long-term (current) use of anticoagulants, INR goal 2.0-3.0 Lymphocytosis Orthopnea Pain in left finger(s) Pain in right knee Pneumonia Type 2 diabetes mellitus without complications Unspecified atrial fibrillation Surgical History History of cholecystectomy History of left hip replacement Dr. Bennett - 11/2021 at [place], [place] History of prostate surgery History of total knee replacement Family History Other Cancer Hypertension Lung disease Denies family history of Diabetes CAD (coronary artery disease) Clotting disorder Dementia Hyperlipidemia Psychiatric illness Chronic kidney disease (CKD) Suicide Anesthesia complication Bleeding disorder Stroke Social History Smoking and tobacco status: former smoker Quit status (tobacco): has quit using tobacco Year quit tobacco: 2009 - 1PPD x 50 Years Second hand smoke exposure: No Alcohol intake: current Substance/Drug Use: never Lives independently: Yes Household members: spouse Marital status: Current occupational status: retired Do you think of yourself as: Straight/Heterosexual Current gender identity: Male Vitals/I&O/Wt Last Vital Signs Temp 97.7 F 01/01/23 21:04 Pulse 66 01/01/23 21:04 Resp 18 01/01/23 21:04 BP 163/72 01/01/23 21:04 Pulse Ox 90 01/01/23 21:04 O2 Del Method Nasal Cannula 01/01/23 19:31 O2 Flow Rate 2 01/01/23 19:31 01/01/23 01/01/23 01/01/23 06:59 14:59 22:59 Intake Total Balance / Weight last 48 hrs Weight 81.647 kg Physical Exam Narrative: Patient is alert and oriented x3. No focal deficit other than inability to move the right leg. Constitution: Patient is well-developed well-nourished well-hydrated. HEENT ENT: Head is normocephalic atraumatic goals round reactive to light and accommodation extraocular muscles are intact. Nasopharyngeal mucosa moist and pink. Neck: Supple no JVD carotid bruits or lymphadenopathy. Lungs. Expiratory wheezing noted anteriorly as a posterior exam was unable to be accomplished due to pain. Heart: Regular rate and rhythm normal S1-S2 without loud murmur auscultated. Abdomen: Soft nontender nondistended positive bowel sounds no hepatosplenomegaly. Skin: No lesions or rashes noted. extremities: No clubbing cyanosis or edema. The right lower extremity has a external rotation at rest. Data 01/01/23 19:08 01/01/23 19:08 Xray Ortho: My impression: Right hip fracture Radiologist's impression: FINDINGS: Bones/joints: Total left hip replacement. Impacted angulated right femoral neck fracture. Soft tissues: Unremarkable. CXR: My impression: Hyperinflated lungs Radiologist's impression: No acute finding. EKG 1: My Interpretation: Sinus bradycardia Logistics Research Engineer Interpretation: Sinus bradycardia, possible left atrial enlargement, incomplete right bundle branch block, nonspecific T wave abnormality A&P Assessment and plan (1) Closed fracture of right hip: Per ER physician, the orthopedic surgeon was hopeful to complete surgery tomorrow. It was requested that the patient's Coumadin be reversed with vitamin K. This was administered in the ER. (2) CKD (chronic kidney disease), stage IV: Stable (3) Bradycardia: Stable (4) Type 2 diabetes mellitus without complications: Qualifiers: Diabetes mellitus rodent exterminator insulin use: without rodent exterminator use Qualified Code(s): E11.9 - Type 2 diabetes mellitus without complications (5) COPD (chronic obstructive pulmonary disease): (6) Acute exacerbation of chronic obstructive airways disease: Patient with current active wheezing on exam. Plan Patient is admitted for surgical intervention of the right hip fracture. Patient is on Coumadin which will need to be reversed prior to this intervention. Also patient appears to have acute exacerbation of COPD. We will start steroids and nebs. Attestations Medical Necessity Statement*: Patient is unable to walk, requiring IV pain medications and requiring surgical intervention for a right hip fracture. Care is expected to cross 2 midnights Coding Level of Care Code 13657 Diagnoses Closed fracture of right hip S72.001A CKD (chronic kidney disease), stage IV N18.4 Bradycardia R00.1 Type 2 diabetes mellitus without complications E11.9 Diabetes mellitus long-term insulin use: without rodent exterminator use COPD (chronic obstructive pulmonary disease) J44.9 Acute exacerbation of chronic obstructive airways disease J44.1
--- NOTE | 2023-01-01 22:14 | PC.NURSE ---
Patient is unknown of when his last pneumonia vaccine was, he states he would like to receive one but will confirm with his in the morning when the last dose was.
[2023-01-01] MEDS: dextrose 5%-sod chloride 0.45% 1,000 ML 75 ML IV (23:11)
[2023-01-01] MEDS: amiodarone 200 mg Tablet 100 MG PO (23:12)
[2023-01-01] MEDS: atorvastatin 40 mg Tablet PO (23:12)
[2023-01-01] MEDS: docusate sodium 100 mg Capsule PO (23:13)
--- NOTE | 2023-01-01 23:48 | PM.CONSULT ---
Providers/Reason For Consult Consulting Physician/Specialty*: Yonas Chairez DO/orthopedic surgery Reason for Consult*: Right displaced femoral neck fracture Requesting Physician: Dr. Selene Bryson Attending Physician: Orion House DO Primary Care Provider: Autumn Pierre DO History of Present Illness History of Present Illness Jesús Cole is a 82 year old male who was placing his 3-year-old grandson on the horse when the horse moved and knocked him over on accident.? Unfortunately, he fell onto his right hip and was unable to move.? He was found to have a right hip fracture. Brought to the emergency department and findings consistent with right femoral neck fracture internal medicine was consulted and admitted patient as primary orthopedics consulted for treatment recommendations. History reveals has had a left hip hemiarthroplasty by my partner Dr. Bennett on 11/22/2021. Patient denies any chest pain or shortness of breath, denies any fevers or chills. History of A-fib and on Coumadin INR upon admission was 2.8 After vitamin K reversal by internal medicine team down to 1.45 Internal medicine submitted patient and patient is now medically optimized for surgical intervention. Review of Systems General: Reports: 10 or more systems reviewed and unremarkable except in HPI and below Medications/Allergies Home Medications Medication Instructions Recorded Confirmed Last Taken Type vit C 250 mg-vit E 90 mg-zinc 40 1 tab PO DAILY 08/19/21 01/02/23 05/16/22 History mg-copper 1 [id number] capsule (PreserVision AREDS-2) sennosides 8.6 mg-docusate sodium 1 tab-cap PO BID constipation #60 11/23/21 01/02/23 05/16/22 Rx 50 mg tablet (Senna-S) tabs potassium chloride 10 mEq 10 meq PO DAILY PRN Take with 02/03/22 01/02/23 Unknown Rx tablet,extended release fureosemide as needed #90 tabs fluticasone 500 mcg-salmeterol 50 1 inh inhalation BID #60 ea 04/06/22 01/02/23 05/16/22 Rx mcg/dose blistr powdr for inhalation (Advair Diskus) umeclidinium 62.5 mcg/actuation 1 inh inhalation DAILY #30 ea 04/06/22 01/02/23 05/17/22 Rx blister powder for inhalation (Incruse Ellipta) allopurinol 300 mg tablet 150 mg PO DAILY 05/17/22 01/02/23 05/16/22 History amiodarone 200 mg tablet 100 mg PO BEDTIME #45 tabs 07/17/22 01/02/23 Unknown Rx albuterol sulfate 90 mcg/actuation 2 puff inhalation Q4H PRN 07/21/22 01/02/23 Unknown Rx aerosol inhaler Shortness Of Breath #8.5 grams furosemide 20 mg tablet 10 mg PO DAILY #45 tabs 07/24/22 01/02/23 Unknown Rx linagliptin 5 mg tablet (Tradjenta) 5 mg PO DAILY #90 tabs 08/28/22 01/02/23 Unknown Rx albuterol sulfate 2.5 mg/3 mL 2.5 mg (3 mL) inhalation Q6H PRN 09/06/22 01/02/23 Unknown Rx (0.083 %) solution for nebulization shortness of breath or wheezing #360 mL citalopram 20 mg tablet See Rx Instructions .Route 09/28/22 01/02/23 Unknown Rx .COMPLEX #90 tabs metoprolol tartrate 25 mg tablet 25 mg PO BID PRN heartrate #180 10/06/22 01/02/23 Unknown Rx tabs warfarin 3 mg tablet 3 mg PO DIRECTED #90 tabs 10/25/22 01/02/23 Unknown Rx atorvastatin 20 mg tablet See Rx Instructions .Route 11/06/22 01/02/23 Unknown Rx .COMPLEX #90 tabs tamsulosin 0.4 mg capsule See Rx Instructions .Route 11/06/22 01/02/23 Unknown Rx .COMPLEX #90 caps citalopram 10 mg tablet See Rx Instructions .Route 12/20/22 01/02/23 Unknown Rx .COMPLEX #90 tabs warfarin 2 mg tablet 2 mg PO DIRECTED #90 tabs 12/25/22 01/02/23 Unknown Rx ipratropium 0.5 mg-albuterol 3 mg 3 ml inhalation Q6H PRN Shortness 12/28/22 01/02/23 Unknown Rx (2.5 mg base)/3 mL nebulization Of Breath #180 mL soln olmesartan 5 mg tablet 5 mg PO DAILY 01/02/23 01/02/23 Unknown History Allergies Allergy/AdvReac Type Severity Reaction Status Date / Time No Known Allergies Allergy Verified 01/01/23 19:09 Current Medications Generic Name Dose Route Start Last Admin Trade Name Sundayq PRN Reason Stop Dose Admin Amiodarone HCl 100 mg 01/01/23 22:45 01/01/23 23:12 Amiodarone 200 Mg Tablet PO 100 mg BEDTIME MARCOS Administration Atorvastatin Calcium 40 mg 01/01/23 23:00 01/01/23 23:12 Atorvastatin 40 Mg Tablet PO 40 mg BEDTIME MARCOS Administration Docusate Sodium 100 mg 01/01/23 22:35 01/01/23 23:13 Docusate Sodium 100 Mg Capsule PO 100 mg BID MARCOS Administration Dextrose/Sodium Chloride 1,000 mls @ 75 mls/hr 01/01/23 22:30 01/01/23 23:11 Dextrose 5%-Sod Chloride 0.45% IV 75 mls/hr .[id number] MARCOS Administration Morphine Sulfate 4 mg 01/01/23 22:00 01/01/23 22:19 Morphine 4 Mg/Ml Sdv 1 Ml IVP 4 mg Q3H PRN Administration SEVERE PAIN PFSH Acute PFSH: Medical History Acute and chronic respiratory failure with hypoxia Atopic dermatitis, unspecified Atrial fibrillation with rapid ventricular response CAP (community acquired pneumonia) CKD (chronic kidney disease) CKD (chronic kidney disease), stage IV CLL (chronic lymphocytic leukemia) COPD (chronic obstructive pulmonary disease) Dyslipidemia Edema leg Essential (primary) hypertension GERD (gastroesophageal reflux disease) Gout, unspecified Long-term (current) use of anticoagulants, INR goal 2.0-3.0 Lymphocytosis Orthopnea Pain in left finger(s) Pain in right knee Pneumonia Type 2 diabetes mellitus without complications Unspecified atrial fibrillation Surgical History History of cholecystectomy History of left hip replacement Dr. Bennett - 11/2021 at [place], [place] History of prostate surgery History of total knee replacement Family History Other Cancer Hypertension Lung disease Denies family history of Diabetes CAD (coronary artery disease) Clotting disorder Dementia Hyperlipidemia Psychiatric illness Chronic kidney disease (CKD) Suicide Anesthesia complication Bleeding disorder Stroke Social History Smoking and tobacco status: former smoker Quit status (tobacco): has quit using tobacco Year quit tobacco: 2009 - 1PPD x 50 Years Second hand smoke exposure: No Alcohol intake: current Substance/Drug Use: never Lives independently: Yes Household members: spouse Marital status: Current occupational status: retired Do you think of yourself as: Straight/Heterosexual Current gender identity: Male Vitals/I&O/Wt Last Vital Signs Temp 97.7 F 01/01/23 21:04 Pulse 66 01/01/23 21:04 Resp 16 01/01/23 22:19 BP 163/72 01/01/23 21:04 Pulse Ox 90 01/01/23 21:04 O2 Del Method Nasal Cannula 01/01/23 20:47 O2 Flow Rate 2 01/01/23 19:31 01/01/23 01/01/23 01/02/23 14:59 22:59 06:59 Intake Total 51 / 51 Balance 51 / 51 Weight last 48 hrs Weight 180 lb Physical Exam Narrative: Orthopedic examination: Examination of the right hip demonstrates right lower extremity shortened and externally rotated. Patient's distal pulses are palpable toes warm well-perfused brisk cap refill less than 2 seconds. Patient has pain with logroll examination unable to perform Stinchfield secondary to pain and discomfort. Patient has tenderness palpation about the right hip with mild swelling noted. Patient sensations intact to light touch to the right lower extremity. Patient is able to plantarflex and dorsiflex ankle as well as wiggle toes to the right lower extremity. Secondary survey examination: No pain on pelvic compression, no tenderness to palpation of the bilateral upper extremity joints of the shoulders elbows wrist and hands with normal range of motion and no pain or discomfort. Distal pulses are palpable gross motor and sensory intact. Left lower extremity has a negative logroll examination healed postoperative left hip incision. Patient is able to wiggle toes to the left lower extremity plantarflex and dorsiflex ankle. Const: COMMON NORMALS: no acute distress, average body habitus, patient oriented x3 and alert HENMT: COMMON NORMALS: normocephalic and atraumatic HEAD & SCALP: normocephalic and atraumatic Resp: COMMON NORMALS: normal respiratory effort and No retractions Cardio: COMMON NORMALS: Peripheral pulses 2+ throughout PERIPHERAL PULSES: Peripheral pulses 2+ throughout Neuro: COMMON NORMALS: patient oriented x3 SENSORIUM/ORIENTATION: Yes alert Data 01/02/23 03:36 01/02/23 13:15 Xray Ortho: My impression: X-rays multiple views of the pelvis right knee as well as right femur and right hip demonstrate a displaced and impacted right femoral neck fracture. No other periprosthetic fracture or dislocation patient does have a history and stable hardware of a left hip hemiarthroplasty on the left side. Stable right total knee arthroplasty to the right knee. A&P Assessment and plan (1) Displaced fracture of right femoral neck: (2) Hyperkalemia: Plan N.p.o. since midnight imaging reviewed Labs reviewed INR this morning after vitamin K reversal down to 1.45 okay for surgery Hyperkalemia this morning treated by medicine and down to 4.8 prior to surgery Discussed with internal medicine patient has been medically optimized and is cleared to proceed with surgical intervention of the right hip hemiarthroplasty Plan to proceed with right hip hemiarthroplasty today Patient will return to the floor postoperatively MDM: Jesús is a pleasant 82-year-old gentleman who presents yesterday from a ground-level fall and was hit by a horse and patient was landed on his right hip and had inability to bear weight. He was brought to emergency department found to have a right hip displaced femoral neck fracture. History reveals in 2021 he had a left hip femoral neck fracture as well as treated by my partner with a left hip hemiarthroplasty and he has done well postoperatively from that. At this point time we talked about his treatment options as far as nonoperative and operative intervention. At this point time would recommend surgical intervention of the right hip hemiarthroplasty for earlier mobilization as well as for pain control. They understand the risk benefits complication alternatives with surgery the ins and outs of the procedure. Risk of surgery include not limited to make it better, make it worse, injury to nerves vessels or tendons, instability/dislocation, infection, leg length discrepancies, blood clot, heart attack, stroke, on table. Understanding these risks with surgery patient elects to proceed with surgical intervention all questions answered we will proceed with right hip hemiarthroplasty. Patient has been medically optimized as his INR is 1.45 and patient's hyperkalemia has been corrected by internal medicine and cleared to proceed with surgical intervention. Questions answered. Consult Attestations Medical Necessity Statement: Ongoing care for right displaced femoral neck fracture with plan for right hip hemiarthroplasty Coding Level of Care Code Acute Code for Chg Fwd Diagnoses Displaced fracture of right femoral neck S72.001A Hyperkalemia E87.5 Time Spent (min) 45
[2023-01-02] VITALS (31 sets, daily range): BP systolic 108–192; BP diastolic 57–85; PULSE 74–98; RESP 14–26; TEMP 35.9–37.1; O2SAT 91–99
[2023-01-02] MEDS: morphine 4 mg/mL SDV 1 mL IVP ×4 (01:28→16:03)
[2023-01-02] MEDS: albuterol 2.5 mg/3 mL Neb INHALATION (01:49)
[2023-01-02] MEDS: ondansetron 2 mg/ML SDV 2 mL 4 MG IVP ×2 (01:50→09:44)
[2023-01-02 04:11] LABS: Anion Gap 11.8 (5-19); Blood Urea Nitrogen 31 mg/dL (8-23); Calcium 8.8 mg/dL (8.5-10.5); Carbon Dioxide 29 mmol/L (22-29); Chloride 104 mmol/L (98-107); Glucose 161 mg/dL (65-115); Osmolality Calculated 298 mOsm/kg (285-295); Potassium 5.8 mmol/L (3.5-5.1); Sodium 139 mmol/L (136-145)
[2023-01-02 04:27] LABS: 25 Hydroxy Vitamin D 21 ng/mL (30-100)
[2023-01-02 04:44] LABS: INR 1.45 (0.8-1.2)
[2023-01-02 06:40] LABS: Glucose Point of Care 154 mg/dL (70-110)
[2023-01-02] MEDS: ipratropium-albuterol 3 mL Neb INHALATION ×3 (08:05→16:47)
[2023-01-02] MEDS: budesonide 0.5 mg/2 mL Neb INHALATION (08:05)
[2023-01-02] MEDS: calcium gluconate 0.1 gm/mL 10% SDV 10mL 1 GM IVP (08:50)
[2023-01-02] MEDS: docusate sodium 100 mg Capsule PO (08:51)
[2023-01-02] MEDS: pneumococcal (23 valent) SDV 0.5 mL IM (08:51)
[2023-01-02] MEDS: citalopram 20 mg Tablet PO (08:51)
--- NOTE | 2023-01-02 09:25 | PC.PHAR ---
PTS STS PT IS CURRENTLY TAKING 3 MG OF WARFARIN EVERYDAY
--- NOTE | 2023-01-02 10:01 | PC.CHAP ---
Pastoral Care Encounter/Spiritual Assessment Type of Contact [] Declined line service attendant visit [] Patient/Family/Request visit [] Outpatient visit [] Follow-up visit [] Physician referral [] Code/Alert [x] Routine visit [] Staff referral [] Actively dying [] Patient sleeping [] Family support [] [] Out of room [] Palliative care [] [] Receiving care in room [] Pre-surgical visit [] Trauma [] Long length of stay [] ICU visit [] Other: Relational/Emotional Strength [x] Patient feels connected with others/family/visitors/staff [] Distress [] Loneliness/isolation [] Abandonment Spirituality of Patient [x] Person of Shefali [] Attends Buddhist of their Shefali [x] Believes in Prayer [] Reads Bible or Mormon materials [] There are Spiritual issues to be addressed Credit Product Analyst Interventions [x] Prayer [x] Active listening [] Non-anxious presence [x] Spiritual/emotional support [] Crisis/trauma care [] Spiritual counseling [] Bereavement support [] Provided bereavement packet [] Provided Bible/devotional materials [] Provided toy/stuffed animal, coloring book to patient or family member [] Provided Communion [] Anointing/Harvey [] Salvation [] Completed spiritual assessment [] Other: Impact on Illness or Injury [] Angry [] Fearful [] Anxious [] Often cries [] Exhaustion [] Unable to work [] Unable to attend orthodoxy [] Unable to walk/stand [] Unable to read [] Unable to drive [] Unable to eat/drink [] Unable to sleep [] Unable to be with family [] Patient intubated [] Other: Summary Time spent with patient 5 min
--- NOTE | 2023-01-02 10:02 | CTR_ITS ---
PROCEDURE INFORMATION: Exam: CT Chest Without Contrast; Diagnostic Exam date and time: 01/02/2023 11:40 AM Age: 82 years old Clinical indication: Vomiting; Fever; Prior surgery; Surgery date: 6+ months; Surgery type: RT hip, gb; Additional info: Hematemesis. TECHNIQUE: Imaging protocol: Diagnostic computed tomography of the chest without contrast. Radiation optimization: All CT scans at this facility use at least one of these dose optimization techniques: automated exposure control; mA and/or kV adjustment per patient size (includes targeted exams where dose is matched to clinical indication); or iterative reconstruction. Other technique: Axial images are available with sagittal and coronal reconstruction views. Automated dose exposure control is utilized. The DLP is 901.56. REPORTING DATA: Count of CT and Cardiac NM exams in prior 12 months: This patient has received 5 known CTs and 0 known cardiac nuclear medicine studies in the 12 months prior to the current study. COMPARISON: 1. CT chest wo con [id number] 11/11/2022 9:31 AM 2. CR (CHEST, ) 01/01/2023 7:11 PM RADIATION DOSE METRICS: Total DLP (mGy-cm): 901.56 FINDINGS: Trachea: There appear to be some minimal secretions at the carinal level with the central airways overall grossly patent. Lungs: There is chronic air trapping and centrilobular emphysematous type appearance similar overall along with some fissure thickening and subpleural scarring.No lobar consolidation is appreciated. There also appear to be some secretions for example subsegmental left lower lobe and could also be seen with some mucoid or aspiration related sequela. There are some minimal blebs present. There is some patchy ground-glass attenuation left upper lobe. Pleural spaces: No significant pleural effusion is appreciated. No interval pneumothorax is appreciated. Heart: No significant pericardial fluid collection is appreciated. Mediastinal space: There is some overall esophageal wall thickening and stranding demonstrated throughout the thoracic esophagus extending to the GE junction with some luminal air and fluid. No definite adjacent extraluminal air or pneumomediastinum is currently appreciated. There is however some stranding demonstrated for example at the right lateral distal esophageal margin. There is some coronary arterial calcifications present as well as at the aortic root. Lymph nodes: There are some borderline reactive appearing mediastinal and hilar lymph nodes relatively similar overall. Vasculature: No aneurysmal dilatation is appreciated. Intraperitoneal space: The intraperitoneal space abdominal findings correlates with the dedicated CT abdomen description same day. Bones/joints: There is some flowing thoracic spondylosis similar overall. Soft tissues: No radiopaque foreign body or subcutaneous emphysema is appreciated. Other findings: There is some motion artifact present. No other significant interval changes are appreciated. PROCEDURE INFORMATION: Exam: CT Abdomen And Pelvis Without Contrast Exam date and time: 01/02/2023 11:40 AM Age: 82 years old Clinical indication: Vomiting; Fever; Prior surgery; Surgery date: 6+ months; Surgery type: RT hip, gb; Additional info: Hematemesis. TECHNIQUE: Imaging protocol: Computed tomography of the abdomen and pelvis without contrast. 500image(s) are provided. Radiation optimization: All CT scans at this facility use at least one of these dose optimization techniques: automated exposure control; mA and/or kV adjustment per patient size (includes targeted exams where dose is matched to clinical indication); or iterative reconstruction. Other technique: Axial images are available with sagittal and coronal reconstruction views. Automated dose exposure control is utilized. The DLP is 901.56. REPORTING DATA: Count of CT and Cardiac NM exams in prior 12 months: This patient has received 5 known CTs and 0 known cardiac nuclear medicine studies in the 12 months prior to the current study. COMPARISON: [place] [id number] 01/29/2022 4:59 PM 2. CR (PELVIS, ) 01/01/2023 7:56 PM RADIATION DOSE METRICS: Total DLP (mGy-cm): 901.56 FINDINGS: Tubes, catheters and devices: There is a bladder catheter present. Liver: There appears to be some marginal hepatic steatosis. Gallbladder and bile ducts: Cholecystectomy clips are present. Pancreas: No interval pancreatic ductal dilatation or calcification is appreciated with some fatty replacement appearance similar overall. Spleen: Unremarkable. Adrenal glands: There is some slight adrenal hypertrophy similar. Kidneys and ureters: No interval radiopaque obstructive renal calculus or hydronephrosis is appreciated with some nonspecific perinephric stranding similar overall. There is some fluid dense renal cystic type appearance similar for example right posteriorly. Stomach and bowel: There is thickening and stranding of the GE junction corresponding with the CT chest description. There is a small sliding-type hiatal hernia demonstrated with slight gastroesophageal fold thickening. There is some duodenal C-loop diverticular change present similar overall. There appears to be some ingested calcific type debris within the stomach. Some aspects of the colon are undistended. This may also be peristaltic related.There is abundant stool present limiting mucosal detail evaluation.The bowel gas pattern appears nonobstructive.There are subcentimeter predominant para-aortic and mesenteric lymph nodes overall present. Appendix: No evidence of appendicitis. Intraperitoneal space: No free air or free fluid collections are appreciated. Vasculature: There is similar atherosclerotic and marginally ectatic appearance of the infrarenal aorta similar overall. Lymph nodes: There are subcentimeter predominant para-aortic and mesenteric lymph nodes overall present. Urinary bladder: The bladder is incompletely fluid filled for evaluation which may exagerate the wall thickness. This can also be seen with post inflammation sequela. There is some bladder air. Reproductive: There is some prostate hypertrophy. Bones/joints: There is slightly decreased bone mineralization overall. There is similar alignment of the left hip hardware. There is history of a right femoral neck fracture similar overall with maintained acetabular alignment currently. There is some lumbar spondylosis and posterior element hypertrophy present contributing to some osseous neural foraminal narrowing with lumbosacral junction predominance. Soft tissues: No radiopaque foreign body or subcutaneous emphysema is appreciated. There is some periumbilical omental level soft tissue and calcific appearance unchanged significantly overall. Other findings: There is some motion artifact present. No other significant interval changes are appreciated. CT/[place] [id number] IMPRESSION: 1. In the interval there is diffuse esophageal wall thickening along with stranding of the adjacent. This could be seen with processes including esophagitis as well as esophageal injury. No free air is currently appreciated. Direct visualization is recommended. 2. There is some patchy subsegmental atelectasis versus early inflammation of the lung bases left more so than right with otherwise chronic air trapping appearance. IMPRESSION: 1. There is history of a complete right femoral neck fracture similar overall. 2. There is gastroesophageal wall thickening corresponding with the CT chest description. Direct visualization is recommended. 3. No interval abdominal fluid collections or acute interval inflammatory stranding changes are appreciated. COMMENTS: Consistent with the [employer]'s Incidental Findings Committee white paper (J Am Ethan Radiol 2018): Any incidental renal lesion less than 1 cm or classified as too small to characterize, or any incidental cystic renal lesion characterized as simple-appearing, is likely benign. No follow-up imaging is recommended for these lesions per consensus recommendations based on imaging criteria.
--- NOTE | 2023-01-02 10:05 | PC.NURSE ---
Pt had blood tinged emesis, notified Ashwin. CT of abdomen ordered. Pt and aware.
[2023-01-02] MEDS: pantoprazole 40 mg SDV IVP ×2 (10:09→22:59)
--- NOTE | 2023-01-02 11:27 | P.PN_ITS ---
Subjective Subjective: is stating that her heart rate has been in low 40s sometimes especially in the morning when he wakes up I will put patient on nitriles lab technician For hyperkalemia given insulin D50 and bicarb repeat BMP before procedure Afebrile patient is endorsing feeling hot Vitals/I&O/Wt Last Vital Signs Temp 98.3 F 01/02/23 11:16 Pulse 79 01/02/23 11:16 Resp 18 01/02/23 11:16 BP 190/85 01/02/23 11:16 Pulse Ox 91 01/02/23 11:16 O2 Del Method Nasal Cannula 01/02/23 11:16 O2 Flow Rate 2 01/02/23 08:02 01/01/23 01/02/23 01/02/23 22:59 06:59 14:59 Intake Total Output Total 325 / 325 Balance -325 / -274 Weight last 48 hrs Weight 81.647 kg Physical Exam Narrative: GCS 15 Nonfocal neuro exam Skin flushed No signs of meningitis Awake and alert Conjunctivitis is chronic as per the Abdomen soft Right leg rotated outwards and short Yu catheter in place concentrated urine S1, S2 Urinary Catheter Management: Yu: Cath Placed During This Visit: yes Reason for Continuing Indwelling Catheter: Perioperative Use in Selected Surgeries Urinary Catheter Date of Insertion: 01/02/23 Urinary Catheter Time of Insertion: 01:30 Data 01/01/23 19:08 01/02/23 03:36 A&P Assessment and plan (1) Closed fracture of right hip: (2) CKD (chronic kidney disease), stage IV: (3) Viral upper respiratory infection: (4) Bradycardia: (5) CKD (chronic kidney disease): Qualifiers: Chronic kidney disease stage: unspecified stage Qualified Code(s): N18.9 - Chronic kidney disease, unspecified (6) Type 2 diabetes mellitus without complications: Qualifiers: Diabetes mellitus marine oil terminal superintendent insulin use: without marine oil terminal superintendent use Qualified Code(s): E11.9 - Type 2 diabetes mellitus without complications (7) COPD (chronic obstructive pulmonary disease): (8) Hyperkalemia: Plan Hyperkalemia Received bicarb, insulin and D50 along calcium gluconate Repeat BMP before procedure History of bradycardia, underlying A-fib Currently heart rate is okay We will treat patient on diagnostic cardiac sonographer Coumadin on hold INR reversed with FFP Right hip fracture after sustaining a mechanical fall N.p.o. Planning for surgery today after correction of hyperkalemia Nausea, vomiting Blood-tinged emesis Hemoglobin stable No hemodynamic instability Start patient on Protonix Requested CT abdomen pelvis on stat basis Patient lives with his N.p.o. She was taking Coumadin at home which is on hold Full code Patient wanting to go home with home health after surgery We will request PT after surgery Continue IV fluids Spoke with anesthesiologist about high potassium Attestations Medical Necessity Statement*: Surgery today Diagnoses Closed fracture of right hip S72.001A CKD (chronic kidney disease), stage IV N18.4 Viral upper respiratory infection J06.9 Bradycardia R00.1 CKD (chronic kidney disease) N18.9 Chronic kidney disease stage: unspecified stage Type 2 diabetes mellitus without complications E11.9 Diabetes mellitus marine oil terminal superintendent insulin use: without marine oil terminal superintendent use COPD (chronic obstructive pulmonary disease) J44.9 Hyperkalemia E87.5
[2023-01-02] MEDS: dextrose 5%-sod chloride 0.45% 1,000 ML 75 ML IV (11:56)
[2023-01-02 12:03] LABS: Glucose Point of Care 163 mg/dL (70-110)
[2023-01-02] MEDS: insulin regular-human 10 UNIT in SYRINGE 1 EACH IVP (13:31)
[2023-01-02] MEDS: sodium bicarbonate 1 mEq/mL SDV 50mL 100 MEQ IVP (13:32)
[2023-01-02 13:50] LABS: Anion Gap 12.8 (5-19); Blood Urea Nitrogen 31 mg/dL (8-23); Calcium 8.7 mg/dL (8.5-10.5); Carbon Dioxide 27 mmol/L (22-29); Chloride 105 mmol/L (98-107); Glucose 142 mg/dL (65-115); Osmolality Calculated 299 mOsm/kg (285-295); Potassium 4.8 mmol/L (3.5-5.1); Sodium 140 mmol/L (136-145)
--- NOTE | 2023-01-02 14:31 | P.ANESASSM_ITS ---
Pre-Anesthetic Assessment Height/Weight: Height 1.78 m Weight 81.647 kg Temp Pulse Resp BP Pulse Ox O2 Del Method O2 Flow Rate 98.3 F 74 16 190/85 94 Nasal Cannula 2 01/02/23 11:16 01/02/23 12:43 01/02/23 12:43 01/02/23 11:16 01/02/23 12:43 01/02/23 12:43 01/02/23 12:43 Operation Date: 01/02/23 14:00 Proposed Procedures p Hemiarthroplasty Hip(Right) - Yonas Chairez, Last intake: Intake Last Liquid Date 01/01/23 Last Liquid Time 23:00 Last Solid Date 12/31/22 Last Solid Time 20:00 Social No alcohol and No tobacco Exam alert, oriented x 3, clear to auscultation bilaterally and regular rate & rhythm Airway Mallampati: Class II Dentition: other (missing) Pulmonary Chronic Obstructive Pulmonary Disease CV/HEM Atrial Fibrillation and Hypertension Ef 50%, hypokinesis of septum and anteralateral semgents Chronic Renal Insufficiency GI Gastroesophageal Reflux Disease Metabolic Diabetes Mellitus CLL Anesthetic Plan ASA status: 3 Anesthesia: General Other: Previous anesthesia record states DL w/ MAC 3.5 revealed grade III view d/t limited neck extension. A glidescope 4 was used with a grade II view and patient was intubated with ease. Risk of > 500 ml blood loss (7ml/kg in children): No Medications/Allergies Home Medications Medication Instructions Recorded Confirmed Last Taken Type vit C 250 mg-vit E 90 mg-zinc 40 1 tab PO DAILY 08/19/21 01/02/23 05/16/22 History mg-copper 1 [id number] capsule (PreserVision AREDS-2) sennosides 8.6 mg-docusate sodium 1 tab-cap PO BID constipation #60 11/23/21 01/02/23 05/16/22 Rx 50 mg tablet (Senna-S) tabs potassium chloride 10 mEq 10 meq PO DAILY PRN Take with 02/03/22 01/02/23 Unknown Rx tablet,extended release fureosemide as needed #90 tabs fluticasone 500 mcg-salmeterol 50 1 inh inhalation BID #60 ea 04/06/22 01/02/23 05/16/22 Rx mcg/dose blistr powdr for inhalation (Advair Diskus) umeclidinium 62.5 mcg/actuation 1 inh inhalation DAILY #30 ea 04/06/22 01/02/23 05/17/22 Rx blister powder for inhalation (Incruse Ellipta) allopurinol 300 mg tablet 150 mg PO DAILY 05/17/22 01/02/23 05/16/22 History amiodarone 200 mg tablet 100 mg PO BEDTIME #45 tabs 07/17/22 01/02/23 Unknown Rx albuterol sulfate 90 mcg/actuation 2 puff inhalation Q4H PRN 07/21/22 01/02/23 Unknown Rx aerosol inhaler Shortness Of Breath #8.5 grams furosemide 20 mg tablet 10 mg PO DAILY #45 tabs 07/24/22 01/02/23 Unknown Rx linagliptin 5 mg tablet (Tradjenta) 5 mg PO DAILY #90 tabs 08/28/22 01/02/23 Unknown Rx albuterol sulfate 2.5 mg/3 mL 2.5 mg (3 mL) inhalation Q6H PRN 09/06/22 01/02/23 Unknown Rx (0.083 %) solution for nebulization shortness of breath or wheezing #360 mL citalopram 20 mg tablet See Rx Instructions .Route 09/28/22 01/02/23 Unknown Rx .COMPLEX #90 tabs metoprolol tartrate 25 mg tablet 25 mg PO BID PRN heartrate #180 10/06/22 01/02/23 Unknown Rx tabs warfarin 3 mg tablet 3 mg PO DIRECTED #90 tabs 10/25/22 01/02/23 Unknown Rx atorvastatin 20 mg tablet See Rx Instructions .Route 11/06/22 01/02/23 Unknown Rx .COMPLEX #90 tabs tamsulosin 0.4 mg capsule See Rx Instructions .Route 11/06/22 01/02/23 Unknown Rx .COMPLEX #90 caps citalopram 10 mg tablet See Rx Instructions .Route 12/20/22 01/02/23 Unknown Rx .COMPLEX #90 tabs warfarin 2 mg tablet 2 mg PO DIRECTED #90 tabs 12/25/22 01/02/23 Unknown Rx ipratropium 0.5 mg-albuterol 3 mg 3 ml inhalation Q6H PRN Shortness 12/28/22 01/02/23 Unknown Rx (2.5 mg base)/3 mL nebulization Of Breath #180 mL soln olmesartan 5 mg tablet 5 mg PO DAILY 01/02/23 01/02/23 Unknown History Allergies Allergy/AdvReac Type Severity Reaction Status Date / Time No Known Allergies Allergy Verified 01/01/23 19:09 Current Medications Generic Name Dose Route Start Last Admin Trade Name Freq PRN Reason Stop Dose Admin Albuterol/Ipratropium 3 ml 01/02/23 08:00 01/02/23 11:08 Ipratropium-Albuterol 3 Ml Neb INHALATION 3 ml QID.RESPIRATORY MARCOS Administration Amiodarone HCl 100 mg 01/01/23 22:45 01/01/23 23:12 Amiodarone 200 Mg Tablet PO 100 mg BEDTIME MARCOS Administration Atorvastatin Calcium 40 mg 01/01/23 23:00 01/01/23 23:12 Atorvastatin 40 Mg Tablet PO 40 mg BEDTIME MARCOS Administration Budesonide 0.5 mg 01/02/23 08:00 01/02/23 08:05 Budesonide 0.5 Mg/2 Ml Neb INHALATION 0.5 mg BID.RESPIRATORY MARCOS Administration Citalopram Hydrobromide 20 mg 01/02/23 09:00 01/02/23 08:51 Citalopram 20 Mg Tablet PO 20 mg DAILY MARCOS Administration Docusate Sodium 100 mg 01/01/23 22:35 01/02/23 08:51 Docusate Sodium 100 Mg Capsule PO 100 mg BID MARCOS Administration Dextrose/Sodium Chloride 1,000 mls @ 75 mls/hr 01/01/23 22:30 01/02/23 11:56 Dextrose 5%-Sod Chloride 0.45% IV 75 mls/hr .[id number] MARCOS Administration Morphine Sulfate 4 mg 01/01/23 22:00 01/02/23 11:54 Morphine 4 Mg/Ml Sdv 1 Ml IVP 4 mg Q3H PRN Administration SEVERE PAIN Ondansetron HCl 4 mg 01/01/23 22:28 01/02/23 09:44 Ondansetron 2 Mg/Ml Sdv 2 Ml IVP 4 mg Q8H PRN Administration vomiting, or N/V if npo Pantoprazole Sodium 40 mg 01/02/23 10:30 01/02/23 10:09 Pantoprazole 40 Mg Sdv IVP 40 mg Q12H MARCOS Administration PFSH Anesthesia Medical History Acute and chronic respiratory failure with hypoxia Atopic dermatitis, unspecified Atrial fibrillation with rapid ventricular response CAP (community acquired pneumonia) CKD (chronic kidney disease) CKD (chronic kidney disease), stage IV CLL (chronic lymphocytic leukemia) COPD (chronic obstructive pulmonary disease) Dyslipidemia Edema leg Essential (primary) hypertension GERD (gastroesophageal reflux disease) Gout, unspecified Long-term (current) use of anticoagulants, INR goal 2.0-3.0 Lymphocytosis Orthopnea Pain in left finger(s) Pain in right knee Pneumonia Type 2 diabetes mellitus without complications Unspecified atrial fibrillation Surgical History History of cholecystectomy History of left hip replacement Dr. Bennett - 11/2021 at [place], [place] History of prostate surgery History of total knee replacement Family History Other Cancer Hypertension Lung disease Denies family history of Diabetes CAD (coronary artery disease) Clotting disorder Dementia Hyperlipidemia Psychiatric illness Chronic kidney disease (CKD) Suicide Anesthesia complication Bleeding disorder Stroke Social History Smoking and tobacco status: former smoker Quit status (tobacco): has quit using tobacco Year quit tobacco: 2009 - 1PPD x 50 Years Second hand smoke exposure: No Alcohol intake: current Substance/Drug Use: never Lives independently: Yes Household members: spouse Marital status: Current occupational status: retired Do you think of yourself as: Straight/Heterosexual Current gender identity: Male Data Anesthesia 01/02/23 03:36 01/02/23 13:15 Short CBC 01/01/23 Range/Units 19:08 WBC 16.3 H (4.0-10.0) 10^3/uL Hgb 14.8 (11.7-16.6) g/dL Hct 46.4 (42.0-52.0) % MCV 95.7 H (80-94) fl Plt Count 179 (130-400) 10^3/cmm Neut % (Auto) 48.2 % Neut # (Auto) 7.87 H (1.8-7.7) 10^3/uL BMP 01/01/23 01/02/23 01/02/23 19:08 03:36 12:29 Sodium 141 139 Cancelled Potassium 4.9 5.8 H Cancelled Chloride 105 104 Cancelled Carbon Dioxide 25 29 Cancelled BUN 27 H 31 H Cancelled Creatinine 1.5 H 1.7 H Cancelled Glucose 109 161 H Cancelled Calcium 8.7 8.8 Cancelled 01/02/23 13:15 Sodium 140 Potassium 4.8 Chloride 105 Carbon Dioxide 27 BUN 31 H Creatinine 1.4 H Glucose 142 H Calcium 8.7 Liver Function 01/01/23 Range/Units 19:08 Total Bilirubin 0.3 (0.15-1.2) mg/dL AST 29 (0-40) U/L ALT 36 (0-41) U/L Alkaline Phosphatase 98 (40-130) U/L Albumin 3.9 (3.5-5.2) g/dL Coags 01/01/23 01/02/23 19:08 03:36 PT 30.60 H 18.10 H D INR 2.80 H 1.45 H Cardiac Studies: Echocardiogram 01/29/22
[2023-01-02] MEDS: hyDRALAzine 20 mg/mL INJ 1 mL 5 MG IVP (15:10)
[2023-01-02 15:23] LABS: Hematocrit 48.8 % (42.0-52.0); Hemoglobin 15.4 g/dL (11.7-16.6)
[2023-01-02] MEDS: scopolamine 1.5 Patch 1 PATCH TRANSDERMA (18:28)
[2023-01-02] MEDS: ketorolac 30 mg/mL INJ IVP (18:31)
[2023-01-02] MEDS: acetaminophen 1,000 MG/100 ML PIGGYBACK 400 MG IV ×2 (18:35→23:05)
[2023-01-02] MEDS: ceFAZolin 2,000 MG in sodium chloride 0.9% (plus) 50 ML 100 MG IV ×2 (19:15→23:03)
--- NOTE | 2023-01-02 19:23 | W.PM.OPSUD ---
Surgery/Procedure H&P Update DATE OF PROCEDURE: January 02, 2023 DATE H&P PERFORMED: 01/02/23 CHANGES TO PREVIOUS DOCUMENTATION: None. Plan to proceed with right hip hemiarthroplasty. Patient's been medically optimized per primary team. PREOP DIAGNOSIS: Right femoral neck fracture PRIMARY INDICATION FOR PROCEDURE: Right displaced femoral neck fracture PLANNED PROCEDURE: Operation Date: 01/02/23 14:00 Proposed Procedures p Hemiarthroplasty Hip(Right) - Yonas Chairez DO
[2023-01-02] MEDS: tranexamic acid 1,000 mg/10mL SDV 1000 MG IV (19:54)
[2023-01-02] MEDS: vancomycin 1,000 MG SDV 1000 MG XX (20:10)
--- NOTE | 2023-01-02 21:22 | XRR_ITS ---
PROCEDURE INFORMATION: Exam: XR Right Hip Exam date and time: 01/02/2023 8:27 PM Age: 82 years old Clinical indication: Device placement; Prior surgery; Surgery date: Post-operative (0-2 days); Surgery type: Total RT hip; Additional info: Post op gilles, do in pacu TECHNIQUE: Imaging protocol: Radiologic exam of the right hip. Views: 1 view hip with pelvis when performed. COMPARISON: [place] [id number] 01/02/2023 11:40 AM FINDINGS: Bones/joints: Left hip arthroplasty changes in place. Soft tissues: Right hip arthroplasty changes with postsurgical soft tissue findings. XR/XR hip RT 2-3V wo/w pel* [id number] IMPRESSION: 1. Right hip arthroplasty changes with postsurgical soft tissue findings. 2. Left hip arthroplasty changes in place.
--- NOTE | 2023-01-02 21:23 | PM.OP2 ---
Brief Operative Note Date of procedure: 01/02/23 Pre-op diagnosis: Right hip displaced femoral neck fracture Post-op diagnosis: same Procedure Done: Right hip hemiarthroplasty Surgeon: Yonas Chairez Estimated blood loss (mL): 125 Complications: None Post-op Plan: Patient taken to PACU in stable condition, recovering well. Will be returning back to the floor. Patient tolerated the procedure without complications. Patient will be weightbearing as tolerated to the right lower extremity. Posterior hip precautions. Change Silverlon dressing as needed if becomes saturated. Internal medicine on board as primary. Postoperative pain control DVT prophylaxis postoperative TXA and postoperative antibiotics. Orthopedics will continue to follow on the floor. PT/OT. Condition: stable Disposition: floor Coding Level of Care Code Acute Code for 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
--- NOTE | 2023-01-02 21:25 | PM.PACU ---
PACU note Narrative: Patient taken to PACU in stable condition. Abduction pillow on in place. Distal pulses are palpable. Toes warm well-perfused brisk capillary refill less than 2 seconds. Dressings on in place and is clean dry and intact. Patient is able to wiggle toes, plantarflex and dorsiflex ankle. Sensation intact to light touch distally Exam: awake Disposition: back to floor
--- NOTE | 2023-01-02 21:26 | PM.OP ---
Operative Report Date of procedure: January 02, 2023 Pre-op diagnosis: Preop Diagnosis Right femoral neck fracture Procedure: Post-op diagnosis: Same Procedure done: Right hip hemiarthroplasty, cemented Implants: Franklin Accolade C 127 degree femoral stem size 5 Bipolar head 50 mm Femoral head +0 mm offset 8mm distal cement spacer Surgeon: Yonas Chairez DO Estimated blood loss: 125 mL IV fluids: See anesthesia record Urine output: See anesthesia record Complications: None Findings: See operative report Condition: stable Disposition: floor Brief History: Patient was seen in the emergency department and subsequently admitted after fall.? Patient sustained a right displaced femoral neck fracture.? Patient was subsequently admitted by the hospitalist team for medical management and preoperative clearance and optimization and the orthopedic surgery team was consulted for evaluation and treatment recommendations.? At that point time discussed with patient? treatment options.? We talked about nonoperative versus operative intervention talked about the risk benefits complication alternatives to surgical nonsurgical treatment options.? Risks of surgery were discussed and she understands and agrees to proceed with procedure.? At this point time would recommend a right hip hemiarthroplasty.? This will offer patient pain control as well as early weightbearing.? Patient was medically optimized and cleared by the primary team she was then taken to the OR.? Patient understands risk benefits complication alternatives with surgical nonsurgical treatment options.? At this point time elects to proceed with right hip hemiarthroplasty.? All questions answered.? Patient understands agrees with current plan.? All questions answered. Procedure: Patient seen evaluated the preoperative holding area.? Consent was reviewed and signed with patient.?? Pt was seen evaluated by the anesthesia department.? Once cleared for surgery patient patient was taken back to the operative suite.? Patient was then transported onto the OR table.? pt underwent anesthesia per the anesthesia department.? Once appropriately anesthetized patient was then positioned in lateral decubitus position with the right hip up.? Patient was placed on a pegboard appropriately secured to the bed all bony prominences well-padded.? Next the right lower extremity was then prepped and draped in sterile orthopedic fashion.? Final timeout performed.? Patient received appropriate preoperative antibiotics. A standard posterolateral approach was then made over the lateral aspect of the hip.? Sharp scalpel incision was made through skin and subcutaneous tissue I then utilized a Mayes elevator to mobilize over the fascia.? The fascia was then split longitudinally with electrocautery.? Next a bursectomy was then performed.? I then placed Hohmann underneath the abductors.? The hip was placed under tension with internal rotation.? I then utilizing electrocautery performed a full-thickness release of the short external rotators and capsule in 1 full thick sleeve for lateral repair.? This was then taken down to the lesser trochanter.? Immediately on capsulotomy hematoma was noticed and displaced femoral neck fracture appreciated.? I then placed a Hohmann above and below the neck.? I then utilized an oscillating saw to freshen the cut this was roughly half of a fingerbreadth above the lesser as patient did fracture slightly lower on the neck.? Once this was performed this access was removed with rongeur.? I then utilized a corkscrew to remove the head.? This was then subsequently sized and measured to be a 50 mm head size.? I then thoroughly irrigated the acetabulum.? A Hohmann was placed anteriorly and thorough inspection of the acetabulum no significant arthritic changes were noted.? I then utilized a rongeur and Bovie to remove the pulvinar.? Once this was performed I then subsequently took my trial 50 mm head and trialed this which had excellent fit and appropriate suction fit noted. This was then subsequently removed. Once this was performed I irrigated the socket and then turned my attention towards the femoral preparation.? I utilized Bovie and rongeur to remove the soft tissue off of the saddle.? Once this was done a box osteotome followed by a canal finder and lateralizing rattail rasp was used to appropriately lateralized in the canal.? Next I then subsequently broached to a size 5 Accolade C. Franklin femoral stem which had appropriate fixation.? I was able to trial with this and this appeared to be appropriate length with ability to add slight offset if needed once cemented.? Once this was done I then removed the size 5femoral stem and then subsequently proceeded with standard cementation technique.? Cement was mixed on the back table the final implant was opened and appropriately measurement on distal cement plug to accommodate the cement mantle and femoral stem.? This was set and impacted in place to appropriate depth.? Next I utilized the cement brush thoroughly irrigated the canal and then dry the canal tampon.? Once cement was appropriately mixed and ready for cementation informed anesthesia and they optimize patient's oxygenation cement was then impacted using cement gun and then was subsequently pressurized.? The femoral stem size 5 was then impacted in place with appropriate anteversion and held into place and all excess cement was removed and allowed to cure once cured I then trialed a standard size head which at that point there was which had excellent leg lengths as well as appropriate shuck, and excellent stability in all planes of motion with no evidence of instability.? At this point this was determined to being my final femoral head size.? This was subsequently dislocated the trial head was then removed the final implant of bipolar head 50 mm with a +0 mm offset was then opened.? The trunnion was then cleaned and dried and this was impacted in place with excellent fixation.? I then reduced the hip this had excellent stability and appropriate leg lengths.? The wound bed was then thoroughly irrigated.? I then utilizing #5 Ethibond suture performed my repair of the capsule and short external rotators through bone tunnels. ? Wound bed was then thoroughly irrigated,1 gram vanco powder placed in wound bed. IT band was closed with strata fix suture and the deep subcutaneous and subcutaneous layers were closed with 0 strata fix and 2-0 strata fix.? Skin was then closed reapproximated with [place].? Silverlon dressing applied.? Patient placed in abduction pillow posterior hip precautions.? pt? was awakened from anesthesia and taken to PACU in stable condition Disposition: Patient taken to PACU in stable condition will receive appropriate discharge directions as well as pain medication DVT prophylaxis postoperatively.? Patient will return to the floor postoperatively.? Patient will be weightbearing as tolerated to the right lower extremity.? Posterior hip precautions. Abduction pillow in place.? DVT prophylaxis, pain medication, postoperative antibiotics and TXA.? Patient will work with PT/OT and discharge services for discharge planning.? Patient understands agrees with current plan.? All questions answered.?? patient will? see me in the office in 2 weeks.
--- NOTE | 2023-01-02 21:45 | ANE.PACU2 ---
Inpatient post-anesthesia follow up: Airway intact: Yes Vital signs: Temperature 98 F Pulse Rate 66 Respiratory Rate 16 Blood Pressure 159/61 Pulse Oximetry 95 Oxygen Delivery Me thod Nasal Cannula Oxygen Flow Rate 3 Fraction of Inspir ed Oxygen Hydration adequate: Yes Nausea and vomiting: No Pain level: 1 Mental status: Baseline
[2023-01-03] VITALS (20 sets, daily range): BP systolic 117–159; BP diastolic 50–78; PULSE 60–144; RESP 16–22; TEMP 36.6–37.2; O2SAT 87–98
[2023-01-03 04:45] LABS: Basophils % 0.2 %; Hemoglobin 13.9 g/dL (11.7-16.6); Lymphocytes # 7.4 10^3/uL (0.8-4.8); Lymphocytes % 31.3 %; Mean Corpuscular HGB Conc 30.9 g/dL (30.0-36.0); Mean Corpuscular Hemoglobin 30.5 pg (28.0-34.0); Mean Corpuscular Volume 98.9 fl (80-94); Mean Platelet Volume 9.8 fL (7.4-10.4); Monocytes # 0.7 10^3/uL (0.2-0.9); Monocytes % 2.8 %; Neutrophils # 15.34 10^3/uL (1.8-7.7); Neutrophils % 65.2 %; Nucleated Red Blood Cells % 0 %; Platelet Count 136 10^3/cmm (130-400); Red Blood Count 4.55 10^6/uL (4.1-5.3); Red Cell Distribution Width 13.1 % (12.1-15.1); White Blood Count 23.5 10^3/uL (4.0-10.0)
[2023-01-03 04:57] LABS: INR 1.09 (0.8-1.2)
[2023-01-03 05:05] LABS: Slide Review Slide Review Perform
[2023-01-03 05:07] LABS: Anion Gap 12.6 (5-19); Blood Urea Nitrogen 34 mg/dL (8-23); Calcium 8.3 mg/dL (8.5-10.5); Carbon Dioxide 26 mmol/L (22-29); Chloride 104 mmol/L (98-107); Glucose 213 mg/dL (65-115); Osmolality Calculated 298 mOsm/kg (285-295); Potassium 5.6 mmol/L (3.5-5.1); Sodium 137 mmol/L (136-145)
[2023-01-03 05:41] LABS: Glucose Point of Care 119 mg/dL (70-110)
[2023-01-03] MEDS: acetaminophen 1,000 MG/100 ML PIGGYBACK 400 MG IV ×2 (05:46→15:39)
[2023-01-03] MEDS: ceFAZolin 2,000 MG in sodium chloride 0.9% (plus) 50 ML 100 MG IV ×2 (05:46→16:20)
[2023-01-03] MEDS: dextrose 5%-sod chloride 0.45% 1,000 ML 75 ML IV (05:47)
[2023-01-03] MEDS: sodium polystyrene sulfonate 15 gm/60 mL Btl PO (06:38)
[2023-01-03] MEDS: ipratropium-albuterol 3 mL Neb INHALATION ×3 (07:50→16:24)
[2023-01-03] MEDS: budesonide 0.5 mg/2 mL Neb INHALATION (07:50)
[2023-01-03] MEDS: chlorhexidine gluconate 0.12% UDC 15 mL 30 ML MUCOUS MEM ×4 (09:28→21:48)
[2023-01-03] MEDS: docusate sodium 100 mg Capsule PO ×2 (09:28→17:32)
[2023-01-03] MEDS: calcium carb-vit d 600mg/400unit 1 Tablet 1 EACH PO ×2 (09:28→17:32)
[2023-01-03] MEDS: multivitamin therapeutic Tablet 1 TAB PO (09:28)
[2023-01-03] MEDS: iron polysaccharide complex 150 mg Capsule PO ×2 (09:28→17:32)
[2023-01-03] MEDS: apixaban 5 mg Tablet PO (09:28)
[2023-01-03] MEDS: citalopram 20 mg Tablet PO (09:28)
[2023-01-03] MEDS: mupirocin oint 22 gm 1 APPLIC NASAL ×2 (09:31→17:32)
[2023-01-03] MEDS: pantoprazole 40 mg SDV IVP ×2 (09:31→23:10)
[2023-01-03] MEDS: morphine 4 mg/mL SDV 1 mL IVP (10:51)
[2023-01-03 13:06] LABS: ABG PCO2 47.8 mmHg (35-45); ABG PH Result 7.33 (7.35-7.45); Arterial Blood Gas Hematocrit 42.7 % (42-52); Base Excess ABG -0.9 mmol/L (-2.0-2.0); Blood Gas Allen Test Pos; Blood Gas Operator Identificat AMH; Blood Gas Sample Site Radial, left; Blood Gas Sample Type Arterial; Carboxyhemoglobin 1.9 %THgb (0.4-20.1); HCO3 ABG 25.5 mmol/L (22-26); HGB O2 Sat 85.7 % (95-100); Ionized Calcium Level - ABG 1.2 mmol/L (1.1-1.4); Methemoglobin 0.6 % (0.4-1.5); Oxygen Device ROOM AIR; Oxygen Saturation ABG 87.9; PO2 ABG 52.5 mmHg (80.0-100.0); Potassium Level - ABG 4.5 mmol/L (3.5-5.0); Total Hemoglobin 13.9 g/dL (14-18)
[2023-01-03] MEDS: lactulose oral liq 20 gm/30 mL UDC PO (13:13)
[2023-01-03 13:20] LABS: Add Urine Microscopic? YES; Bilirubin Urine Neg (Negative); Blood Urine 2+ (Negative); Glucose Urine UA Norm (Normal); Ketones Urine 1+ (Negative); Leukocyte Esterase Urine Negative (Negative); Nitrate Urine Negative (Negative); Protein Urine Trace (Negative); Specific Gravity, Urine 1.025 (1.005-1.030); Urine Appearance Clear (CLEAR); Urine Color Amber (Yellow); Urobilinogen Urine Norm (Negative); pH Urine 5 (5-7)
[2023-01-03 13:33] LABS: Add Urine Culture? Yes; Bacteria Urine 3+ /hpf; Mucus Urine TRACE /hpf; RBC Urine 0-4 /hpf (0-2); Squamous Epithelial Cell Urine 0-4 /hpf (0-5); WBC Urine 0-4 /hpf (0-5)
--- NOTE | 2023-01-03 14:00 | PM.PN ---
Subjective Subjective: Patient seen and examined. Patient just returned from CT as per patient was having some difficulty in finding words and appeared slightly confused from his baseline. This is noted on my evaluation. He is able to follow simple commands. He was sitting in wheelchair after he returned from CT scan. Vitals/I&O/Wt Last Vital Signs Temp 98.4 F 01/03/23 11:32 Pulse 78 01/03/23 13:11 Resp 20 H 01/03/23 13:11 BP 117/50 01/03/23 11:32 Pulse Ox 95 01/03/23 13:11 O2 Del Method Nasal Cannula 01/03/23 13:11 O2 Flow Rate 3 01/03/23 13:11 01/02/23 01/03/23 01/03/23 22:59 06:59 14:59 Intake Total 1075 / 2081.35 1410 / 3491.35 600 / 600 Output Total 525 / 525 200 / 725 Balance 550 / 1556.35 1210 / 2766.35 600 / 600 Weight last 48 hrs Weight 180 lb Physical Exam Narrative: Patient the right hip: Examination of the right hip demonstrates Silverlon dressings on in place is clean dry and intact. Normal postoperative swelling and ecchymosis around the right hip. No appreciable drainage. Thigh compartments are soft and compressible. He is able to wiggle toes plantarflex and dorsiflex ankle patient endorses sensations intact light touch distally. Distal pulses are palpable lower right lower extremity is warm well perfused Urinary Catheter Management: Yu: Cath Placed During This Visit: yes, but has since been removed by the nurse Reason for Continuing Indwelling Catheter: Decision to DC Catheter Urinary Catheter Date of Insertion: 01/02/23 Urinary Catheter Time of Insertion: 01:30 Date Urinary Catheter Removed: 01/03/23 Time Urinary Catheter Discontinued: 06:00 Data 01/05/23 04:26 01/05/23 04:26 Other Labs: Labs a.m. 01/03/2023-WBC 23.5, hemoglobin 13.9 Xray Ortho: My impression: X-rays of the right demonstrate stable right hip hemiarthroplasty cemented with appropriate cement mantle appropriate leg lengths. No periprosthetic fracture or dislocation noted. A&P Assessment and plan (1) Displaced fracture of right femoral neck: (2) Word finding difficulty: Plan Weightbearing as tolerated right lower extremity PT/OT Resume DVT prophylaxis at home Coumadin-defer to primary for resuming Coumadin Posterior hip precautions Postoperative antibiotics Internal medicine on board as primary Patient returning from CT scan for word finding difficulty and confusion?defer to primary for management Encourage incentive spirometry Maintain dressing as needed, change if saturated Follow-up in the orthopedic office in 2 weeks orthopedics Orthopedics will follow along tomorrow A.m. labs reviewed Postoperative x-rays reviewed Attestations Medical Necessity Statement*: Operative ongoing care of right hip hemiarthroplasty Coding Level of Care Code Acute Code for Chg Fwd Diagnoses Displaced fracture of right femoral neck S72.001A Word finding difficulty R47.89 Time Spent (min) 20
--- NOTE | 2023-01-03 14:05 | CT_ITS ---
WS: [id number] CT HEAD TECHNIQUE: Noncontrast CT of the head obtained from the skullbase to the vertex. CLINICAL INFORMATION: confusion COMPARISON: CT January 29, 2022 DLP: 1114.[address] scans at [facility] use at least one of these dose optimization techniques: automated e xposure control; mA and/or kV adjustment per patient size (includes targeted exams where dose is matc hed to clinical indication); or iterative reconstruction. FINDINGS: No evidence of intracranial hemorrhage or mass effect. Ventricular system and basal cisterns are smith nt. Moderate small vessel changes with moderate parenchymal volume loss. No extra-axial fluid collect ions. No evidence of mass or mass effect. Mild mucosal thickening in the paranasal sinuses. Mastoid air cells well aerated. Normal posterior na sopharynx. Intracranial vascular calcification. CT/CT head wo con* [id number] IMPRESSION: 1. No evidence of intracranial hemorrhage or mass effect. 2. Moderate small vessel changes with moderate parenchymal volume loss worse i n the frontal lobes. 3. Intracranial vascular calcification. 4. Mild mucosal thickening in the paranasal sinuses. 5. No acute intracranial findings.
--- NOTE | 2023-01-03 14:47 | P.PN_ITS ---
Subjective Subjective: As per the patient experiencing word finding difficulty Patient is able to communicate very well Answer my question appropriate Nonfocal neuro exam He is not endorsing any pain He is able to void urine Requested ABG urinalysis and CT head Plan is to discharge home with home PT personal service workers updated Nurse notified No more episode of emesis or drop in hemoglobin noted Vitals/I&O/Wt Last Vital Signs Temp 98.4 F 01/03/23 11:32 Pulse 78 01/03/23 13:11 Resp 20 H 01/03/23 13:11 BP 117/50 01/03/23 11:32 Pulse Ox 95 01/03/23 13:11 O2 Del Method Nasal Cannula 01/03/23 13:11 O2 Flow Rate 3 01/03/23 13:11 01/02/23 01/03/23 01/03/23 22:59 06:59 14:59 Intake Total 1075 / 2081.35 1410 / 3491.35 600 / 600 Output Total 525 / 525 200 / 725 Balance 550 / 1556.35 1210 / 2766.35 600 / 600 Weight last 48 hrs Weight 81.647 kg Physical Exam Narrative: Patient sitting in a recliner GCS 15 Nonfocal neuro exam Answer my question appropriately I do not appreciate any word finding difficulty S1, S2 Currently patient is on room air Abdomen distended however soft flushed skin appearance has improved Urinary Catheter Management: Yu: Cath Placed During This Visit: yes, but has since been removed by the nurse Reason for Continuing Indwelling Catheter: Decision to DC Catheter Urinary Catheter Date of Insertion: 01/02/23 Urinary Catheter Time of Insertion: 01:30 Date Urinary Catheter Removed: 01/03/23 Time Urinary Catheter Discontinued: 06:00 Data 01/03/23 03:50 01/03/23 03:50 A&P Assessment and plan (1) Displaced fracture of right femoral neck: (2) Hyperkalemia: (3) Acute exacerbation of chronic obstructive airways disease: (4) Depression: Qualifiers: Depression Type: reactive depression Qualified Code(s): F32.9 - Major depressive disorder, single episode, unspecified (5) CKD (chronic kidney disease), stage IV: (6) GERD (gastroesophageal reflux disease): (7) Word finding difficulty: Plan Word finding difficulty Requested CT head without contrast no signs of stroke Requested UA and ABG Hip fracture status post intervention Plan to discharge home with home health History of GERD: Esophagitis noted continue Protonix No more episode of hematemesis Hemoglobin stable A-fib Patient does not want to use Eliquis, transition back to Coumadin Full code Cardiac diet Continue PT Attestations Medical Necessity Statement*: Discharge in next 24 hours if stable Diagnoses Displaced fracture of right femoral neck S72.001A Hyperkalemia E87.5 Acute exacerbation of chronic obstructive airways disease J44.1 Depression F32.9 Depression Type: reactive depression CKD (chronic kidney disease), stage IV N18.4 GERD (gastroesophageal reflux disease) K21.9 Word finding difficulty R47.89
[2023-01-03] MEDS: warfarin 3 mg Tablet PO (16:23)
[2023-01-03] MEDS: tamsulosin 0.4 mg Capsule PO (17:32)
[2023-01-03] MEDS: HYDROmorphone 1 mg/mL INJ 1 mL 0.2 MG IVP (20:02)
[2023-01-03] MEDS: amiodarone 200 mg Tablet 100 MG PO (20:54)
[2023-01-03] MEDS: atorvastatin 40 mg Tablet PO (20:54)
[2023-01-03] MEDS: TRAMadol 50 mg Tablet PO (20:56)
[2023-01-04] VITALS (17 sets, daily range): BP systolic 95–143; BP diastolic 55–75; PULSE 52–146; RESP 16–24; TEMP 36.6–37.2; O2SAT 84–96
[2023-01-04] MEDS: metoprolol tartrate 25 mg Tablet PO ×3 (00:35→20:45)
[2023-01-04] MEDS: oxyCODONE 5 mg IR Tab/Cap PO ×3 (04:13→13:00)
--- NOTE | 2023-01-04 04:42 | PC.NURSE ---
pt hr remains elevated despite metoprolot at 0035, Dr. Paul notified and order received to give Cardizem 10 mg IVP once, change metoprolol times to 6Am and 6Pm, order to insert mckeon receieved due to pt having difficulty voiding, last bladder scan showed 380ml but pt only voided 100 ml
--- NOTE | 2023-01-04 04:58 | PC.NURSE ---
mckeon inserted, 300 ml out
[2023-01-04] MEDS: dilTIAZem 5 mg/mL SDV 5 mL 10 MG IVP (05:17)
[2023-01-04 05:31] LABS: Basophils % 0.1 %; Eosinophils # 0.1 10^3/uL (0.0-0.8); Eosinophils % 0.6 %; Hemoglobin 13.2 g/dL (11.7-16.6); Lymphocytes # 5.7 10^3/uL (0.8-4.8); Lymphocytes % 26.1 %; Mean Corpuscular HGB Conc 32.2 g/dL (30.0-36.0); Mean Corpuscular Hemoglobin 31.3 pg (28.0-34.0); Mean Corpuscular Volume 97.2 fl (80-94); Monocytes # 1.5 10^3/uL (0.2-0.9); Neutrophils # 14.28 10^3/uL (1.8-7.7); Neutrophils % 65.6 %; Nucleated Red Blood Cells % 0 %; Platelet Count 141 10^3/cmm (130-400); Red Blood Count 4.22 10^6/uL (4.1-5.3); Red Cell Distribution Width 13.2 % (12.1-15.1); White Blood Count 21.8 10^3/uL (4.0-10.0)
[2023-01-04 05:45] LABS: INR 1.15 (0.8-1.2)
[2023-01-04 05:48] LABS: Anion Gap 14.2 (5-19); Blood Urea Nitrogen 44 mg/dL (8-23); Calcium 8.6 mg/dL (8.5-10.5); Carbon Dioxide 27 mmol/L (22-29); Chloride 104 mmol/L (98-107); Glucose 161 mg/dL (65-115); Osmolality Calculated 307 mOsm/kg (285-295); Potassium 4.2 mmol/L (3.5-5.1); Sodium 141 mmol/L (136-145)
[2023-01-04 05:50] LABS: Slide Review Slide Review Perform
[2023-01-04 06:40] LABS: Glucose Point of Care 158 mg/dL (70-110)
[2023-01-04] MEDS: cefTRIAXone 1,000 MG in sodium chloride 0.9% (plus) 50 ML 100 MG IV (08:36)
[2023-01-04] MEDS: chlorhexidine gluconate 0.12% UDC 15 mL 30 ML MUCOUS MEM ×2 (08:37→13:00)
[2023-01-04] MEDS: citalopram 20 mg Tablet PO (08:37)
[2023-01-04] MEDS: multivitamin therapeutic Tablet 1 TAB PO (08:38)
[2023-01-04] MEDS: iron polysaccharide complex 150 mg Capsule PO (08:38)
[2023-01-04] MEDS: docusate sodium 100 mg Capsule PO (08:38)
[2023-01-04] MEDS: calcium carb-vit d 600mg/400unit 1 Tablet 1 EACH PO (08:38)
[2023-01-04] MEDS: mupirocin oint 22 gm 1 APPLIC NASAL ×2 (08:44→17:52)
--- NOTE | 2023-01-04 08:54 | PM.PN ---
Subjective Subjective: Bacteriuria, urine retention, patient is delirious Agitated Irritable However answer question appropriate Short attention span Akathisia Afebrile Had a bowel movement, Vitals/I&O/Wt Last Vital Signs Temp 98.2 F 01/04/23 08:00 Pulse 136 H 01/04/23 08:00 Resp 18 01/04/23 08:37 BP 143/74 01/04/23 08:00 Pulse Ox 94 01/04/23 08:00 O2 Del Method Nasal Cannula 01/04/23 08:00 O2 Flow Rate 2 01/04/23 08:00 01/03/23 01/04/23 01/04/23 22:59 06:59 14:59 Intake Total 1492.5 / 2092.5 Balance 1492.5 / 2092.5 Physical Exam Narrative: Patient on 2 L Abdomen soft Pleasant and cooperative Short attention span Able to move extremities GCS 15 Akathisia A-fib RVR Hypertensive Abdomen soft Urinary Catheter Management: Yu: Cath Placed During This Visit: yes, but has since been removed by the nurse Reason for Continuing Indwelling Catheter: Acute Urinary Retention or Obstruction Urinary Catheter Date of Insertion: 01/04/23 Urinary Catheter Time of Insertion: 04:58 Date Urinary Catheter Removed: 01/03/23 Time Urinary Catheter Discontinued: 06:00 Data 01/04/23 04:43 01/04/23 04:43 A&P Assessment and plan (1) Word finding difficulty: (2) Displaced fracture of right femoral neck: (3) Hyperkalemia: (4) CKD (chronic kidney disease), stage IV: (5) Frontal lobe dementia: (6) Delirium: Plan Acute delirium related to hospitalization and possible UTI Bacteriuria noted Started patient antibiotics Leukocytosis trending down Afebrile Head CT showing frontal lobe dementia Urine retention: Yu catheter in place Voiding trial before discharge Hip fracture status post intervention A-fib RVR started metoprolol continue amiodarone Patient to get Coumadin INR target 2-3 Chronic hypoxia required 2 L Full code Cardiac diet Continue PT Discharge tomorrow with home health Attestations Medical Necessity Statement*: Possibly tomorrow with home health Diagnoses Word finding difficulty R47.89 Displaced fracture of right femoral neck S72.001A Hyperkalemia E87.5 CKD (chronic kidney disease), stage IV N18.4 Frontal lobe dementia G31.09; F02.80 Delirium R41.0
[2023-01-04] MEDS: ipratropium-albuterol 3 mL Neb INHALATION ×3 (09:52→20:30)
[2023-01-04] MEDS: budesonide 0.5 mg/2 mL Neb INHALATION ×2 (09:52→20:30)
[2023-01-04 09:57] LABS: Vitamin B12 408 pg/mL (232-1245)
--- NOTE | 2023-01-04 10:31 | PC.SOCIAL ---
IMM UPDATED IMM dated and initialed and copy put in chart and given to patient
[2023-01-04 10:59] LABS: Glucose Point of Care 159 mg/dL (70-110)
[2023-01-04] MEDS: OLANZapine 10 mg VIAL IM (11:18)
[2023-01-04] MEDS: pantoprazole 40 mg SDV IVP ×2 (11:18→23:52)
--- NOTE | 2023-01-04 12:15 | PM.PN ---
Subjective Subjective: Patient seen and examined. Patient still has some confusion. He is able to however to follow simple commands. No other issues overnight. CT shows frontal lobe dementia. Internal medicine on board and managing as primary appreciate their management. Vitals/I&O/Wt Last Vital Signs Temp 98.4 F 01/05/23 07:34 Pulse 64 01/05/23 11:03 Resp 18 01/05/23 11:03 BP 144/80 01/05/23 07:34 Pulse Ox 93 01/05/23 11:03 O2 Del Method Nasal Cannula 01/05/23 11:03 O2 Flow Rate 3 01/05/23 11:03 01/04/23 01/05/23 01/05/23 22:59 06:59 14:59 Intake Total 50 / 50 Output Total 600 / 600 300 / 900 Balance -600 / -310 -300 / -610 50 / 50 Physical Exam Narrative: Patient the right hip: Examination of the right hip demonstrates Silverlon dressings on in place is clean dry and intact. Normal postoperative swelling and ecchymosis around the right hip. No appreciable drainage. Thigh compartments are soft and compressible. He is able to wiggle toes plantarflex and dorsiflex ankle patient endorses sensations intact light touch distally. Distal pulses are palpable lower right lower extremity is warm well perfused Urinary Catheter Management: Yu: Cath Placed During This Visit: yes, but has since been removed by the nurse Reason for Continuing Indwelling Catheter: Decision to DC Catheter Urinary Catheter Date of Insertion: 01/04/23 Urinary Catheter Time of Insertion: 04:58 Date Urinary Catheter Removed: 01/05/23 Time Urinary Catheter Discontinued: 09:45 Data 01/05/23 04:26 01/05/23 04:26 Other Labs: A.m. labs 01/04/2023: WBC downtrending 21.8, hemoglobin 13.2 Micro: Microbiology 01/03/23 13:07 Urine Culture - Preliminary Urine,Clean Catch A&P Assessment and plan (1) Displaced fracture of right femoral neck: (2) Word finding difficulty: Plan Weightbearing as tolerated right lower extremity PT/OT Resume DVT prophylaxis at home Coumadin-defer to primary for resuming Coumadin Posterior hip precautions Internal medicine on board as primary CT scan shows frontal lobe dementia?internal medicine on board and managing Encourage incentive spirometry Maintain dressing as needed, change if saturated Follow-up in the orthopedic office in 2 weeks orthopedics A.m. labs reviewed Patient stable from orthopedic standpoint. No further orthopedic surgical intervention required at this time. Patient's discharge instructions as well as pain medication and chart we will defer to primary for resuming home Coumadin as this will be patient's DVT prophylaxis. No further intervention required at this time orthopedic surgery team will sign off patient and follow peripherally. If there is any questions pertaining to patient's care for free to contact myself Dr. Chairez for any questions or concerns. We will have him follow-up with us in the office in 2 weeks. Appreciate allow me to partake in the care of this patient. Attestations Medical Necessity Statement*: Ongoing care postop right hip hemiarthroplasty Coding Level of Care Code Acute Code for Chg Fwd Diagnoses Displaced fracture of right femoral neck S72.001A Word finding difficulty R47.89 Time Spent (min) 25
[2023-01-04] MEDS: warfarin 3 mg Tablet PO (13:00)
--- NOTE | 2023-01-04 16:09 | PC.OT ---
OT tx attempted at this time. Pt was sleeping soundly and nursing requested pt not be disturbed. OT tx to be withheld today and reattempted again tomorrow.
[2023-01-04 16:42] LABS: Glucose Point of Care 141 mg/dL (70-110)
[2023-01-04] MEDS: amiodarone 200 mg Tablet 100 MG PO (20:44)
[2023-01-04] MEDS: atorvastatin 40 mg Tablet PO (20:45)
[2023-01-04] MEDS: quetiapine 25 mg Tablet 50 MG PO (20:46)
[2023-01-04 22:06] LABS: Glucose Point of Care 114 mg/dL (70-110)
[2023-01-05] VITALS (8 sets, daily range): BP systolic 122–144; BP diastolic 66–80; PULSE 58–90; RESP 16–22; TEMP 36.7–36.9; O2SAT 93–96
[2023-01-05 04:46] LABS: Basophils % 0.1 %; Eosinophils # 1.1 10^3/uL (0.0-0.8); Eosinophils % 6.5 %; Hematocrit 38.5 % (42.0-52.0); Hemoglobin 12.2 g/dL (11.7-16.6); Lymphocytes # 5.1 10^3/uL (0.8-4.8); Lymphocytes % 31.4 %; Mean Corpuscular HGB Conc 31.7 g/dL (30.0-36.0); Mean Corpuscular Hemoglobin 31.4 pg (28.0-34.0); Mean Corpuscular Volume 99.2 fl (80-94); Monocytes # 1.3 10^3/uL (0.2-0.9); Monocytes % 8.2 %; Neutrophils # 8.61 10^3/uL (1.8-7.7); Neutrophils % 53.2 %; Nucleated Red Blood Cells % 0 %; Platelet Count 126 10^3/cmm (130-400); Red Blood Count 3.88 10^6/uL (4.1-5.3); Red Cell Distribution Width 13.2 % (12.1-15.1); White Blood Count 16.2 10^3/uL (4.0-10.0)
[2023-01-05 05:02] LABS: INR 1.36 (0.8-1.2)
[2023-01-05 05:09] LABS: Anion Gap 11.7 (5-19); Blood Urea Nitrogen 50 mg/dL (8-23); Calcium 8.3 mg/dL (8.5-10.5); Carbon Dioxide 29 mmol/L (22-29); Chloride 107 mmol/L (98-107); Glucose 114 mg/dL (65-115); Osmolality Calculated 310 mOsm/kg (285-295); Potassium 4.7 mmol/L (3.5-5.1); Sodium 143 mmol/L (136-145)
[2023-01-05 06:31] LABS: Glucose Point of Care 119 mg/dL (70-110)
[2023-01-05] MEDS: budesonide 0.5 mg/2 mL Neb INHALATION (08:22)
[2023-01-05] MEDS: ipratropium-albuterol 3 mL Neb INHALATION ×2 (08:22→11:03)
[2023-01-05] MEDS: multivitamin therapeutic Tablet 1 TAB PO (08:36)
[2023-01-05] MEDS: iron polysaccharide complex 150 mg Capsule PO (08:36)
[2023-01-05] MEDS: calcium carb-vit d 600mg/400unit 1 Tablet 1 EACH PO (08:36)
[2023-01-05] MEDS: metoprolol tartrate 25 mg Tablet PO (08:37)
[2023-01-05] MEDS: citalopram 20 mg Tablet PO (08:37)
[2023-01-05] MEDS: docusate sodium 100 mg Capsule PO (08:37)
[2023-01-05] MEDS: mupirocin oint 22 gm 1 APPLIC NASAL (08:38)
[2023-01-05] MEDS: chlorhexidine gluconate 0.12% UDC 15 mL 30 ML MUCOUS MEM (08:38)
[2023-01-05] MEDS: cefTRIAXone 1,000 MG in sodium chloride 0.9% (plus) 50 ML 100 MG IV (08:38)
[2023-01-05] MEDS: pantoprazole DR 40 mg Tablet PO (10:10)
--- NOTE | 2023-01-05 10:16 | PM.DCS ---
Discharge Providers Date of Admission: 01/01/23 20:00 Date of Discharge: January 05, 2023 Attending Provider at Admission: Orion House DO Attending Provider at Discharge: Patsy Christopher MD Primary Care Provider: Autumn Pierre DO Diagnoses at Discharge Discharge Diagnosis (1) Word finding difficulty: Status: Acute (2) Displaced fracture of right femoral neck: Status: Acute (3) Hyperkalemia: Status: Acute (4) CKD (chronic kidney disease), stage IV: Status: Chronic (5) Frontal lobe dementia: Status: Acute (6) Delirium: Status: Acute Reason for Visit Reason for Visit: fall Hospital Course Hospital Course 82-year-old male, with history of A-fib, takes Coumadin, presented after 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 Chairez 01/02, postoperatively patient became confused, CT head was requested which is showing frontal lobe dementia, patient suffered with UTI as well however remained afebrile, requires 2 to 4 L of oxygen on ambulation, of note patient experienced 1 episode of hematemesis before the procedure which was related to diffuse esophagitis he was put on Protonix 40 mg IV twice daily, he never experienced recurrence of symptoms, hemoglobin remained stable he remained hemodynamically stable. He will need outpatient EGD. Cultures remain negative. Patient will resume his Coumadin, family does not want to use Eliquis because of the cost and financial aspect. Patient is agreeable to go to SNF for short-term rehab. I did tell the family that with frontal lobe dementia you might see a change in personality and agitation which is anticipated with this subtype of dementia. Physical Exam Narrative: Awake and alert GCS 15 Abdomen soft Able to answer simple questions Short attention span Inner restlessness/akathisia Currently on 4 L No active wheezing Urinary Catheter Management: Yu: Cath Placed During This Visit: yes, but has since been removed by the nurse Reason for Continuing Indwelling Catheter: Decision to DC Catheter Urinary Catheter Date of Insertion: 01/04/23 Urinary Catheter Time of Insertion: 04:58 Date Urinary Catheter Removed: 01/05/23 Time Urinary Catheter Discontinued: 09:45 Discharge Data Studies Completed and Pending Completed Studies During Hospitalization Category Date Time Status CT chest abdomen pelvis [[place] [id number] Cat Scan 01/02/23 10:02 Completed ] Stat CT head wo con* [id number] Routine Cat Scan 01/03/23 14:05 Completed XR chest 1V portable [id number] Stat Exams 01/01/23 19:07 Completed XR femur RT min 2V* [id number] Stat Exams 01/01/23 19:31 Completed XR hip RT 2-3V wo/w pel* [id number] Routine Exams 01/02/23 21:22 Completed XR hip RT 2-3V wo/w pel* [id number] Stat Exams 01/01/23 19:07 Completed XR knee RT 3V* [id number] Stat Exams 01/01/23 19:31 Completed XR pelvis 1-2V* [id number] Stat Exams 01/01/23 19:31 Completed Pending at discharge Category Date Time Status Urine Culture Routine Lab 01/03/23 13:07 Results Radiology Impressions Chest X-Ray 01/01/23 19:07 IMPRESSION: No acute findings. Femur X-Ray 01/01/23 19:31 IMPRESSION: Impacted angulated right femoral neck fracture with impaction inferior medially and distraction superior laterally. Knee X-Ray 01/01/23 19:31 IMPRESSION: Right total knee replacement. Pelvis X-Ray 01/01/23 19:31 IMPRESSION: Impacted angulated right femoral neck fracture. Chest/Abdomen/Pelvis CT 01/02/23 10:02 IMPRESSION: 1. In the interval there is diffuse esophageal wall thickening along with stranding of the adjacent. This could be seen with processes including esophagitis as well as esophageal injury. No free air is currently appreciated. Direct visualization is recommended. 2. There is some patchy subsegmental atelectasis versus early inflammation of the lung bases left more so than right with otherwise chronic air trapping appearance. IMPRESSION: 1. There is history of a complete right femoral neck fracture similar overall. 2. There is gastroesophageal wall thickening corresponding with the CT chest description. Direct visualization is recommended. 3. No interval abdominal fluid collections or acute interval inflammatory stranding changes are appreciated. COMMENTS: Consistent with the [employer]'s Incidental Findings Committee white paper (J Am Ethan Radiol 2018): Any incidental renal lesion less than 1 cm or classified as too small to characterize, or any incidental cystic renal lesion characterized as simple-appearing, is likely benign. No follow-up imaging is recommended for these lesions per consensus recommendations based on imaging criteria. Hip/Pelvis X-Ray 01/02/23 21:22 IMPRESSION: 1. Right hip arthroplasty changes with postsurgical soft tissue findings. 2. Left hip arthroplasty changes in place. Head CT 01/03/23 14:05 IMPRESSION: 1. No evidence of intracranial hemorrhage or mass effect. 2. Moderate small vessel changes with moderate parenchymal volume loss worse in the frontal lobes. 3. Intracranial vascular calcification. 4. Mild mucosal thickening in the paranasal sinuses. 5. No acute intracranial findings. Laboratory Results WBC 16.2 10^3/uL (4.0-10.0) H 01/05/23 04:26 RBC 3.88 10^6/uL (4.1-5.3) L 01/05/23 04:26 Hgb 12.2 g/dL (11.7-16.6) 01/05/23 04:26 Hct 38.5 % (42.0-52.0) L 01/05/23 04:26 MCV 99.2 fl (80-94) H 01/05/23 04:26 MCH 31.4 pg (28.0-34.0) 01/05/23 04:26 MCHC 31.7 g/dL (30.0-36.0) 01/05/23 04:26 RDW 13.2 % (12.1-15.1) 01/05/23 04:26 Plt Count 126 10^3/cmm (130-400) L 01/05/23 04:26 MPV 10.0 fL (7.4-10.4) 01/05/23 04:26 Neut % (Auto) 53.2 % 01/05/23 04:26 Lymph % (Auto) 31.4 % 01/05/23 04:26 [place] % (Auto) 8.2 % 01/05/23 04:26 Eos % (Auto) 6.5 % 01/05/23 04:26 Baso % (Auto) 0.1 % 01/05/23 04:26 Neut # (Auto) 8.61 10^3/uL (1.8-7.7) H 01/05/23 04:26 Lymph # (Auto) 5.1 10^3/uL (0.8-4.8) H 01/05/23 04:26 [place] # (Auto) 1.3 10^3/uL (0.2-0.9) H 01/05/23 04:26 Eos # (Auto) 1.1 10^3/uL (0.0-0.8) H 01/05/23 04:26 Baso # (Auto) 0.0 10^3/uL (0.0-0.1) 01/05/23 04:26 Nucleated RBC % (auto) 0 % 01/05/23 04:26 Nucleated RBCs # 0.0 /100WBC 01/05/23 04:26 PT 17.20 SECONDS (12.1-14.9) H 01/05/23 04:26 INR 1.36 (0.8-1.2) H 01/05/23 04:26 Specimen Type Arterial 01/03/23 12:55 Sample Site Radial, left 01/03/23 12:55 ABG pH 7.33 (7.35-7.45) L 01/03/23 12:55 ABG pCO2 47.8 mmHg (35-45) H 01/03/23 12:55 ABG pO2 52.5 mmHg (80.0-100.0) L 01/03/23 12:55 ABG HCO3 25.5 mmol/L (22-26) 01/03/23 12:55 ABG O2 Saturation 87.9 01/03/23 12:55 ABG Base Excess -0.9 mmol/L (-2.0-2.0) 01/03/23 12:55 Hema Test Pos 01/03/23 12:55 A-a O2 Gradient 5.0 mmHg (5-10) 01/03/23 12:55 Hematocrit 42.7 % (42-52) 01/03/23 12:55 Hgb O2 Saturation 85.7 % (95-100) L 01/03/23 12:55 Carboxyhemoglobin 1.9 %THgb (0.4-20.1) 01/03/23 12:55 Methemoglobin 0.6 % (0.4-1.5) 01/03/23 12:55 Total Hemoglobin 13.9 g/dL (14-18) L 01/03/23 12:55 Sodium 138.0 mmol/L (131-143) 01/03/23 12:55 Potassium 4.5 mmol/L (3.5-5.0) 01/03/23 12:55 Glucose 195.0 mg/dL (70-115) H 01/03/23 12:55 Ionized Calcium 1.2 mmol/L (1.1-1.4) 01/03/23 12:55 O2 Delivery Device Room air 01/03/23 12:55 FiO2 21.0 % 01/03/23 12:55 Preparole Counseling Aide ID Amh 01/03/23 12:55 Sodium 143 mmol/L (136-145) 01/05/23 04:26 Potassium 4.7 mmol/L (3.5-5.1) 01/05/23 04:26 Chloride 107 mmol/L (98-107) 01/05/23 04:26 Carbon Dioxide 29 mmol/L (22-29) 01/05/23 04:26 Anion Gap 11.7 (5-19) 01/05/23 04:26 BUN 50 mg/dL (8-23) H 01/05/23 04:26 Creatinine 1.5 mg/dL (0.7-1.2) H 01/05/23 04:26 GFR Calculation Not Reportable 01/05/23 04:26 Glucose 114 mg/dL (65-115) 01/05/23 04:26 POC Glucose 119 mg/dL (70-110) H 01/05/23 06:26 Calculated Osmolality 310 mOsm/kg (285-295) H 01/05/23 04:26 Calcium 8.3 mg/dL (8.5-10.5) L 01/05/23 04:26 Total Bilirubin 0.3 mg/dL (0.15-1.2) 01/01/23 19:08 AST 29 U/L (0-40) 01/01/23 19:08 ALT 36 U/L (0-41) 01/01/23 19:08 Alkaline Phosphatase 98 U/L (40-130) 01/01/23 19:08 Total Protein 6.0 g/dL (6.6-8.7) L 01/01/23 19:08 Albumin 3.9 g/dL (3.5-5.2) 01/01/23 19:08 Globulin 2.1 g/dL (1.3-4.6) 01/01/23 19:08 Vitamin B12 408 pg/mL (232-1245) 01/04/23 04:43 25-OH Vitamin D Total 21 ng/mL (30-100) L 01/02/23 03:36 Urine Color Fidelia (Yellow) 01/03/23 13:07 Urine Appearance Clear (CLEAR) 01/03/23 13:07 Urine pH 5 (5-7) 01/03/23 13:07 Ur Specific [place] 1.025 (1.005-1.030) 01/03/23 13:07 Urine Protein Trace (Negative) 01/03/23 13:07 Urine Glucose (UA) Norm (Normal) 01/03/23 13:07 Urine Ketones 1+ (Negative) H 01/03/23 13:07 Urine Blood 2+ (Negative) H 01/03/23 13:07 Urine Nitrate Negative (Negative) 01/03/23 13:07 Urine Bilirubin Neg (Negative) 01/03/23 13:07 Urine Urobilinogen Norm mg/dL (Negative) 01/03/23 13:07 Ur Leukocyte Esterase Negative (Negative) 01/03/23 13:07 Urine RBC 0-4 /hpf (0-2) H 01/03/23 13:07 Urine WBC 0-4 /hpf (0-5) H 01/03/23 13:07 Ur Squamous Epith Cells 0-4 /hpf (0-5) H 01/03/23 13:07 Amorphous Sediment Not Reportable 01/03/23 13:07 Urine Bacteria 3+ /hpf (NONE) H 01/03/23 13:07 Urine Mucus Trace /hpf 01/03/23 13:07 Blood Type O Negative 01/02/23 17:38 Rho(D) Type Negative 01/02/23 17:38 Antibody Screen Negative 01/02/23 17:38 Vitals Last Vital Signs Temp 98.4 F 01/05/23 07:34 Pulse 90 01/05/23 08:33 Resp 22 H 01/05/23 08:24 BP 144/80 01/05/23 07:34 Pulse Ox 93 01/05/23 08:24 O2 Del Method Nasal Cannula 01/05/23 08:24 O2 Flow Rate 3 01/05/23 08:24 Discharge Plan Discharge Patient Disposition: Xfer SNF Condition: Stable Prescriptions: New oxycodone 5 mg tablet 5 mg PO Q6H PRN (Reason: pain) 7 Days Qty: 28 0RF calcium carbonate-vitamin D3 600 mg-10 mcg (400 unit) Tablet 1 tab PO BID 30 Days Qty: 60 0RF levofloxacin 750 mg tablet 750 mg PO DAILY 7 Days Qty: 7 0RF quetiapine [Seroquel] 25 mg tablet 25 mg PO BEDTIME PRN (Reason: insomnia) Qty: 14 0RF ondansetron 4 mg tablet,disintegrating 4 mg PO DAILY 5 Days Qty: 5 0RF Continued PreserVision AREDS-2 250-90-40-1 mg capsule 1 tab PO DAILY Tradjenta 5 mg tablet 5 mg PO DAILY Qty: 90 1RF fluticasone propion-salmeterol [Advair Diskus] 500-50 mcg/dose blister with device 1 inh inhalation BID Qty: 60 6RF Rx Instructions: 340 B Incruse Ellipta 62.5 mcg/actuation blister with device 1 inh inhalation DAILY Qty: 30 6RF warfarin 3 mg tablet 3 mg PO DIRECTED Qty: 90 0RF Protocol: Dose Management Condition: Sunday Dose/Route: 3 mg Instruction: 1 x 3 mg tablet Condition: Sunday Dose/Route: 3 mg Instruction: 1 x 3 mg tablet Condition: Sunday Dose/Route: 3 mg Instruction: 1 x 3 mg tablet Condition: Sunday Dose/Route: 3 mg Instruction: 1 x 3 mg tablet Condition: Dose/Route: 3 mg Instruction: 1 x 3 mg tablet Condition: Sunday Dose/Route: 3 mg Instruction: 1 x 3 mg tablet Condition: Sunday Dose/Route: 3 mg Instruction: 1 x 3 mg tablet Protocol Text: Adjustment Start Date: Sunday01/01/23 INR Value: 2.4 INR Date: 01/01/23 Recheck Date: 01/08/23 Rx Instructions: 3 MG DAILY amiodarone 200 mg tablet 100 mg PO BEDTIME Qty: 45 1RF albuterol sulfate 90 mcg/actuation HFA aerosol inhaler 2 puff inhalation Q4H PRN (Reason: Shortness Of Breath) Qty: 8.5 6RF albuterol sulfate 2.5 mg /3 mL (0.083 %) solution for nebulization 2.5 mg inhalation Q6H PRN (Reason: shortness of breath or wheezing) Qty: 360 1RF citalopram 20 mg tablet See Rx Instructions .ROUTE .COMPLEX Qty: 90 1RF Dose Instruction: TAKE 1 TABLET BY MOUTH ONCE DAILY IN THE MORNING Rx Instructions: TAKE 1 TABLET BY MOUTH ONCE DAILY IN THE MORNING metoprolol tartrate 25 mg tablet 25 mg PO BID PRN (Reason: heartrate) Qty: 180 3RF atorvastatin 20 mg tablet See Rx Instructions .ROUTE .COMPLEX Qty: 90 0RF Dose Instruction: Take 1 tablet by mouth once daily Rx Instructions: Take 1 tablet by mouth once daily tamsulosin 0.4 mg capsule See Rx Instructions .ROUTE .COMPLEX Qty: 90 0RF Dose Instruction: TAKE 1 CAPSULE BY MOUTH IN THE EVENING Rx Instructions: TAKE 1 CAPSULE BY MOUTH IN THE EVENING citalopram 10 mg tablet See Rx Instructions .ROUTE .COMPLEX Qty: 90 0RF Dose Instruction: TAKE 1 TABLET BY MOUTH ONCE DAILY ( TAKE WITH 20 MG) Rx Instructions: TAKE 1 TABLET BY MOUTH ONCE DAILY ( TAKE WITH 20 MG) warfarin 2 mg tablet 2 mg PO DIRECTED Qty: 90 0RF Protocol: Dose Management Condition: Sunday Dose/Route: 3 mg Instruction: 1 x 3 mg tablet Condition: Sunday Dose/Route: 3 mg Instruction: 1 x 3 mg tablet Condition: Sunday Dose/Route: 3 mg Instruction: 1 x 3 mg tablet Condition: Sunday Dose/Route: 3 mg Instruction: 1 x 3 mg tablet Condition: Dose/Route: 3 mg Instruction: 1 x 3 mg tablet Condition: Sunday Dose/Route: 3 mg Instruction: 1 x 3 mg tablet Condition: Sunday Dose/Route: 3 mg Instruction: 1 x 3 mg tablet Protocol Text: Adjustment Start Date: Sunday01/01/23 INR Value: 2.4 INR Date: 01/01/23 Recheck Date: 01/08/23 Rx Instructions: take 1 tab on Sunday, Sun, and Sunday ipratropium-albuterol 0.5 mg-3 mg(2.5 mg base)/3 mL solution for nebulization 3 ml inhalation Q6H PRN (Reason: Shortness Of Breath) Qty: 180 3RF sennosides-docusate sodium [Senna-S] 8.6-50 mg tablet 1 tab-cap PO BID Qty: 60 0RF allopurinol 300 mg tablet 150 mg PO DAILY olmesartan 5 mg tablet 5 mg PO DAILY Held potassium chloride 10 mEq tablet extended release 10 meq PO DAILY PRN (Reason: Take with fureosemide as needed) Qty: 90 1RF Hold Instructions: Resume on 01/12/23. furosemide 20 mg tablet 10 mg PO DAILY Qty: 45 1RF Hold Instructions: Resume on 01/12/23. Discharge Orders: Discharge Order (Routine); Ordered 01/05/23 Ordered By: Patsy Christopher Referrals: [facility] [place] Home Care ([facility]) [Outside] Autumn Pierre DO [Primary Care Provider] - Yonas Chairez DO [Physician] - 2 weeks Discharge Diet: Advance as tolerated Discharge Activity: Increase activity as tolerated, Use walker/crutches as instructed and As per PT/OT instructions Activity Restrictions/Additional Instructions: Orthopedic discharge instructions: Patient may weight-bear as tolerated to the operative lower extremity Posterior hip precautions (avoid excess excessive hip flexion past 90 degrees and internal rotation) Resume home Coumadin for DVT prophylaxis Take pain medication as prescribed Take antinausea medication as needed Supplement with Citracal vitamin D for bone health and healing Ice as needed for pain and swelling Leave Silverlon bandage dressing on for 7 days after that may remove, rinse incision with warm soapy water/shower pat dry keep clean dry and intact and redress with a clean dry dressing. No baths or soap Follow-up in the orthopedic office in 2 weeks from date of surgery Contact the office for any questions or concerns per (fevers, increased drainage or redness around the incision site etc.) Discharge Attestations Time Spent in Discharge Care*: greater than 30 min Quality Metrics Clinical Quality Measures [ No reported AMI, CVA or VTE this stay] Coding Level of Care Code Acute Code for Chg Fwd Diagnoses Word finding difficulty R47.89 Displaced fracture of right femoral neck S72.001A Hyperkalemia E87.5 CKD (chronic kidney disease), stage IV N18.4 Frontal lobe dementia G31.09; F02.80 Delirium R41.0
--- NOTE | 2023-01-05 10:24 | PM.PN ---
Subjective Subjective: Patient is feeling better today Yu catheter can be removed Currently on 3 L nasal cannula GCS 15 No overnight significant event Patient was able to sleep better last night Vitals/I&O/Wt Last Vital Signs Temp 98.4 F 01/05/23 07:34 Pulse 90 01/05/23 08:33 Resp 22 H 01/05/23 08:24 BP 144/80 01/05/23 07:34 Pulse Ox 93 01/05/23 08:24 O2 Del Method Nasal Cannula 01/05/23 08:24 O2 Flow Rate 3 01/05/23 08:24 01/04/23 01/05/23 01/05/23 22:59 06:59 14:59 Intake Total 50 / 50 Output Total 600 / 600 300 / 900 Balance -600 / -310 -300 / -610 50 / 50 Physical Exam Narrative: GCS 15 NIH 0 Awake and alert Short attention span Disorganized thinking No active signs of stroke Family at the bedside Patient looks dehydrated S1, S2 variable Abdomen soft Urinary Catheter Management: Yu: Cath Placed During This Visit: yes, but has since been removed by the nurse Reason for Continuing Indwelling Catheter: Decision to DC Catheter Urinary Catheter Date of Insertion: 01/04/23 Urinary Catheter Time of Insertion: 04:58 Date Urinary Catheter Removed: 01/05/23 Time Urinary Catheter Discontinued: 09:45 Data 01/05/23 04:26 01/05/23 04:26 Micro: Microbiology 01/03/23 13:07 Urine Culture - Preliminary Urine,Clean Catch A&P Assessment and plan (1) Delirium: (2) Frontal lobe dementia: (3) Word finding difficulty: (4) Displaced fracture of right femoral neck: (5) Hyperkalemia: (6) Acute exacerbation of chronic obstructive airways disease: (7) Depression: Qualifiers: Depression Type: reactive depression Qualified Code(s): F32.9 - Major depressive disorder, single episode, unspecified Plan Discontinue Yu catheter Patient slept well last night with Seroquel Continue ceftriaxone Continue Protonix Hemoglobin stable Hemodynamically stable COPD exacerbation requiring 3 to 4 L of oxygen, no active wheeze Awaiting placement Full code Agitation improving No signs of stroke Frontal lobe dementia evident on CT head Attestations Medical Necessity Statement*: Awaiting placement Coding Diagnoses Delirium R41.0 Frontal lobe dementia G31.09; F02.80 Word finding difficulty R47.89 Displaced fracture of right femoral neck S72.001A Hyperkalemia E87.5 Acute exacerbation of chronic obstructive airways disease J44.1 Depression F32.9 Depression Type: reactive depression
[2023-01-05 10:57] LABS: Glucose Point of Care 206 mg/dL (70-110)
[2023-01-05] MEDS: TRAMadol 50 mg Tablet PO (12:57)
[2023-01-05] MEDS: chlorhexidine gluconate 0.12% Btl 473 mL 30 ML MUCOUS MEM (14:02)
[2023-01-05] MEDS: warfarin 5 mg Tablet PO (14:02)
[2023-01-05 14:46] LABS: SARS Covid-2 Antigen negative (Negative)
== END 2023-01-05 15:45 | disposition skilled nursing facility (03) | DRG 522 ==
LOC: ER 19:49 → MEDSURG 20:00
PROVIDERS: Student in an Organized Health Care Education/Training Program; Admitting Provider Internal Medicine; Emergency Provider Emergency Medicine; PCP Family Medicine; Visit Provider Internal Medicine
PROC: 0SRR0J9 Replacement of Right Hip Joint, Femoral Surface with Synthetic Substitute, Cemented, Open Approach (ICD-10-PCS; CPT 27125; principal; 2023-01-02 14:00)
DX: S72.001A Fracture of unspecified part of neck of right femur, initial encounter for closed fracture (principal); C91.10 Chronic lymphocytic leukemia of B-cell type not having achieved remission; F05 Delirium due to known physiological condition; J44.1 Chronic obstructive pulmonary disease with (acute) exacerbation; N18.4 Chronic kidney disease, stage 4 (severe); N39.0 Urinary tract infection, site not specified; E11.22 Type 2 diabetes mellitus with diabetic chronic kidney disease; I12.9 Hypertensive chronic kidney disease with stage 1 through stage 4 chronic kidney disease, or unspecified chronic kidney disease; Z87.891 Personal history of nicotine dependence; E78.5 Hyperlipidemia, unspecified; K21.00 Gastro-esophageal reflux disease with esophagitis, without bleeding; I48.91 Unspecified atrial fibrillation; Z79.01 Long term (current) use of anticoagulants; Z96.642 Presence of left artificial hip joint; Z96.651 Presence of right artificial knee joint; R00.1 Bradycardia, unspecified; E87.5 Hyperkalemia; J06.9 Acute upper respiratory infection, unspecified; F32.9 Major depressive disorder, single episode, unspecified; G31.09 Other frontotemporal neurocognitive disorder; F02.80 Dementia in other diseases classified elsewhere, unspecified severity, without behavioral disturbance, psychotic disturbance, mood disturbance, and anxiety; R33.9 Retention of urine, unspecified; Y93.52 Activity, horseback riding; Y92.89 Other specified places as the place of occurrence of the external cause; W55.12XA Struck by horse, initial encounter; R47.89 Other speech disturbances
CPT/HCPCS: 36415; 36416; 36600; 51702; 70450; 71045; 71250; 72170; 73502; 73552; 73562; 74176; 80048; 80051; 80053; 81001; 82306; 82330; 82607; 82805; 82962; 85014; 85018; 85025; 85610; 86850; 86900; 87086; 87426; 90471; 90732; 93005; 94640; 94664; 96372; 96374; 97110; 97116; 97161; 97167; 97530; 97535; 99285; A9281; C1713; C1776; C9113; J0131; J0360; J0612; J0690; J0696; J1100; J1170; J1815; J1885; J2270; J2405; J2704; J2710; J3010; J3370; J3430; J3490; J7613; J7626; J7799

== ENCOUNTER → 2023-01-25 15:34 | Outpatient (BNVA) | payer MEDICARE, BC, SELFPAY | PROVIDERS: PCP Family Medicine; Visit Provider Student in an Organized Health Care Education/Training Program | DX: S72.012A Unspecified intracapsular fracture of left femur, initial encounter for closed fracture (principal); X58.XXXA Exposure to other specified factors, initial encounter; Z96.641 Presence of right artificial hip joint | CPT/HCPCS: 73502; 99024 ==

== ENCOUNTER 2023-02-01 12:01 | Outpatient (CLI) | payer MEDICARE, BC, SELFPAY ==
[2023-02-01 12:22] LABS: Bilirubin Urine Neg (Negative); Blood Urine Neg (Negative); Glucose Urine UA Norm (Normal); Ketones Urine Negative (Negative); Nitrate Urine Negative (Negative); Protein Urine 1+ (Negative); Specific Gravity, Urine 1.015 (1.005-1.030); Urine Appearance Clear (CLEAR); Urine Color Yellow (Yellow); Urobilinogen Urine 1 mg/dL (Negative); pH Urine 6.5 (5-7)
[2023-02-01 12:23] LABS: Add Urine Culture? No; Add Urine Microscopic? YES; Bacteria Urine TRACE /hpf; Leukocyte Esterase Urine Trace (Negative); Mucus Urine 2+ /hpf; RBC Urine 0-4 /hpf (0-2); Squamous Epithelial Cell Urine 0-4 /hpf (0-5)
== END 2023-02-01 12:02 | disposition home or self-care (01) ==
PROVIDERS: PCP Family Medicine; Visit Provider Family Medicine
DX: R33.9 Retention of urine, unspecified (principal); R35.0 Frequency of micturition
CPT/HCPCS: 81001; 87086

== ENCOUNTER → 2023-02-08 07:48 | Outpatient (BNVA) | payer MEDICARE, BC, SELFPAY | PROVIDERS: PCP Family Medicine; Visit Provider Student in an Organized Health Care Education/Training Program | DX: Z96.641 Presence of right artificial hip joint (principal) | CPT/HCPCS: 73502; 99024 ==

== ENCOUNTER → 2023-02-22 10:43 | Outpatient (BNVA) | payer MEDICARE, BC, SELFPAY | PROVIDERS: PCP Family Medicine; Visit Provider Internal Medicine Cardiovascular Disease | DX: I48.92 Unspecified atrial flutter (principal); E78.5 Hyperlipidemia, unspecified; I12.9 Hypertensive chronic kidney disease with stage 1 through stage 4 chronic kidney disease, or unspecified chronic kidney disease; E11.22 Type 2 diabetes mellitus with diabetic chronic kidney disease; N18.4 Chronic kidney disease, stage 4 (severe); Z87.891 Personal history of nicotine dependence; Z79.84 Long term (current) use of oral hypoglycemic drugs; Z79.01 Long term (current) use of anticoagulants | CPT/HCPCS: 99213 ==

== ENCOUNTER 2023-04-05 10:53 | Oncology outpatient (recurring) (ONCR) | payer MEDICARE, BC, SELFPAY ==
[2023-04-05 11:05] VITALS: PULSE 60; RESP 16; TEMP 36; O2SAT 94
[2023-04-05 11:12] LABS: Basophils # 0.1 10^3/uL (0.0-0.1); Basophils % 0.3 %; Hematocrit 42.6 % (37-53); Lymphocytes # 7.7 10^3/uL (0.8-4.8); Lymphocytes % 39.8 %; Mean Corpuscular HGB Conc 32.4 g/dL (30-55); Mean Corpuscular Hemoglobin 30.5 pg (27-33); Mean Platelet Volume 8.9 fL (7.4-10.4); Monocytes % 5.1 %; Neutrophils # 9.52 10^3/uL (1.8-7.7); Neutrophils % 49.4 %; Nucleated Red Blood Cells % 0 %; Platelet Count 208 10^3/cmm (157-399); Red Blood Count 4.53 10^6/uL (3.85-5.65); Red Cell Distribution Width 14.7 % (12.1-15.1)
[2023-04-05 11:34] LABS: Alanine Aminotransferase 10 U/L (0-41); Albumin Level 3.9 g/dL (3.5-5.2); Alkaline Phosphatase 134 U/L (40-130); Anion Gap 15.2 (5-19); Aspartate Amino Transferase 16 U/L (0-40); Blood Urea Nitrogen 22 mg/dL (8-23); Calcium 9.3 mg/dL (8.5-10.5); Carbon Dioxide 27 mmol/L (22-29); Chloride 103 mmol/L (98-107); Glucose 131 mg/dL (65-115); Lactate Dehydrogenase 192 U/L (135-225); Osmolality Calculated 295 mOsm/kg (285-295); Potassium 5.2 mmol/L (3.5-5.1); Sodium 140 mmol/L (136-145); Total Bilirubin 0.4 mg/dL (0.15-1.2); Total Protein 6.9 g/dL (6.6-8.7)
== END 2023-04-07 23:59 | disposition home or self-care (01) ==
PROVIDERS: Internal Medicine Medical Oncology; PCP Family Medicine; Visit Provider Internal Medicine Hematology & Oncology
DX: C91.10 Chronic lymphocytic leukemia of B-cell type not having achieved remission (principal); Z79.899 Other long term (current) drug therapy; Z53.9 Procedure and treatment not carried out, unspecified reason
CPT/HCPCS: 36415; 73502; 80053; 83615; 85025; 99213; 99214

== ENCOUNTER → 2023-04-18 13:17 | Outpatient (BNVA) | payer MEDICARE, BC, SELFPAY | PROVIDERS: PCP Family Medicine; Visit Provider Internal Medicine Pulmonary Disease | DX: R06.09 Other forms of dyspnea (principal); I10 Essential (primary) hypertension; Z09 Encounter for follow-up examination after completed treatment for conditions other than malignant neoplasm; J44.9 Chronic obstructive pulmonary disease, unspecified; I50.30 Unspecified diastolic (congestive) heart failure; Z87.891 Personal history of nicotine dependence; Z99.3 Dependence on wheelchair; Z79.01 Long term (current) use of anticoagulants | CPT/HCPCS: 36415; 71046; 83880; 85378; 99214 ==

== ENCOUNTER 2023-05-16 18:36 | Inpatient (IN) | payer MEDICARE, BC, SELFPAY ==
[2023-05-16] VITALS (14 sets, daily range): BP systolic 96–129; BP diastolic 51–81; PULSE 76–154; RESP 16–20; TEMP 36.8; O2SAT 92–100; BMI 25.8
--- NOTE | 2023-05-16 18:46 | XRR_ITS ---
PROCEDURE INFORMATION: Exam: XR Chest Exam date and time: 05/16/2023 6:48 PM Age: 83 years old Clinical indication: Dyspnea and tachypnea; Additional info: Tachycardia dyspnea TECHNIQUE: Imaging protocol: Radiologic exam of the chest. Views: 1 view. COMPARISON: CR XR chest 2V* [id number] 04/18/2023 1:36 PM FINDINGS: Lungs: Unremarkable. No consolidation. Pleural spaces: Unremarkable. No pleural effusion. No pneumothorax. Heart/Mediastinum: Unremarkable. No cardiomegaly. Bones/joints: Partially visualized ACDF hardware in the cervical spine. XR/XR chest 1V portable [id number] IMPRESSION: No acute findings.
--- NOTE | 2023-05-16 18:46 | ECG_ITS ---
[facility] Test Date: 2023-05-16 Pat Name: Jesús Cole Department: Room: [facility] Gender: Male Inspector Multifocal Lens: : 1940 Requested By: Bk Perez Order Number: [id number] Gloria MD: Rudi Briscoe M.D. Measurements Intervals [place] Rate: 150 P: 0 TN: 0 QRS: -52 QRSD: 130 T: 24 QT: 255 QTc: 403 Interpretive Statements ATRIAL FLUTTER/TACHYCARDIA WITH RAPID VENTRICULAR RESPONSE LEFT AXIS DEVIATION [QRS AXIS < -30] RIGHT BUNDLE BRANCH BLOCK [120+ ms QRS DURATION, UPRIGHT V1, 40+ ms S IN I/aVL/V4/V5/V6] CRITICAL TEST RESULT Compared to ECG 01/01/2023 19:38:15 Left-axis deviation now present Right bundle-branch block now present Sinus bradycardia no longer present Incomplete right bundle-branch block no longer present T-wave abnormality no longer present Electronically Signed On 05-17-2023 0:45:22 EVALUATION ANALYST by Rudi Briscoe M.D. [id number] goodman
--- NOTE | 2023-05-16 18:49 | ED_ITS ---
HPI - Arrhythmia/Palpitations General: Chief Complaint: Arrhythmia/Palpitations Stated Complaint: Resp Distress Time Seen by Provider: 05/16/23 18:46 History of Present Illness: Patient presents to the ER with respiratory distress and tachycardia. Patient has a history of COPD and A-fib. Patient wears 3 L of oxygen at home at all times. Patient states he this is been getting worse for last 3 weeks and his finally made him come in today patient is on Coumadin and has a history of CLL Review of Systems General: Reports: 10 or more systems reviewed and unremarkable except in HPI and below PFSH ED PFSH: Medical History Acute and chronic respiratory failure with hypoxia Acute exacerbation of chronic obstructive airways disease Atopic dermatitis, unspecified Atrial fibrillation with rapid ventricular response Bradycardia CAP (community acquired pneumonia) CKD (chronic kidney disease) CKD (chronic kidney disease), stage IV CLL (chronic lymphocytic leukemia) Closed fracture of right hip COPD (chronic obstructive pulmonary disease) Delirium Depression Displaced fracture of right femoral neck Dyslipidemia Edema leg Essential (primary) hypertension Frontal lobe dementia GERD (gastroesophageal reflux disease) Gout, unspecified Hyperkalemia Long-term (current) use of anticoagulants, INR goal 2.0-3.0 Lymphocytosis Orthopnea Pain in left finger(s) Pain in right knee Pneumonia Type 2 diabetes mellitus without complications Unspecified atrial fibrillation Viral upper respiratory infection Word finding difficulty Surgical History History of cholecystectomy History of left hip replacement Dr. Bennett - 11/2021 at [place], [place] History of prostate surgery History of total knee replacement Family History Other Cancer Hypertension Lung disease Denies family history of Diabetes CAD (coronary artery disease) Clotting disorder Dementia Hyperlipidemia Psychiatric illness Chronic kidney disease (CKD) Suicide Anesthesia complication Bleeding disorder Stroke Social History Smoking and tobacco/nicotine status: former use of tobacco/nicotine Quit status (tobacco/nicotine): has quit using Year quit tobacco: 2009 - 1PPD x 50 Years Second hand smoke exposure: No Alcohol intake: current Substance/Drug Use: never Lives independently: Yes Household members: spouse Marital status: Current occupational status: retired Do you think of yourself as: Straight/Heterosexual Current gender identity: Male Physical Exam Const: COMMON NORMALS: no acute distress, average body habitus, patient orien kiko x3, no limitations, healthy appearing, alert and well nourished HENMT: COMMON NORMALS: normocephalic, atraumatic, hearing grossly normal bilat erally, external ears normal, Normal external nose present, moist oral mucous membranes and oropharynx normal HEAD & SCALP: normocephalic and atraumatic NOSE: Normal external nose present EXTERNAL EAR: Yes external ears normal Neck/C-Spine: COMMON NORMALS: full ROM, no lymphadenopathy, supple, no meningeal signs, no JVD and Thyroid normal THYROID: Thyroid normal Chest: COMMONS NORMALS: normal inspection of the chest and normal palpation of entire chest wall Resp: COMMON NORMALS: normal respiratory effort, No retractions and No use of accessory muscles; negative for clear to auscultation bilaterally (Diffuse wheezing) AUSCULTATION: not clear to auscultation bilaterally (Diffuse wheezing) Cardio: COMMON NORMALS: no JVD; negative for regular rate and negative for regular rhythm (Irregular irregular tachycardic) RATE: abnormal rate RHYTHM: abnormal rhythm (Irregular irregular tachycardic) GI: COMMON NORMALS: Normal to inspection, nondistended, normoactive bowel sounds present, Soft to palpation, non-tender, No hepatosplenomegaly present and no masses PALPATION: Yes Soft to palpation and Yes No hepatosplenomegaly present : COMMON NORMALS: Yes no CVA tenderness BLADDER/KIDNEY EXAM: Yes no CVA tenderness Back/Pelvis: COMMON NORMALS: no CVA tenderness Neuro: COMMON NORMALS: patient oriented x3 SENSORIUM/ORIENTATION: Yes alert MENINGEAL SIGNS: Yes no meningeal signs Course Vital Signs: Vital signs: Vital Signs Temperature 98.2 F 05/16/23 18:42 Pulse Rate 95 05/16/23 21:54 Respiratory Rate 16 05/16/23 21:54 Blood Pressure 107/73 05/16/23 21:54 Pulse Oximetry 97 05/16/23 21:54 Oxygen Delivery Me thod Nasal Cannula 05/16/23 19:35 Oxygen Flow Rate 3 05/16/23 19:35 MDM - Arrhythmia/Palpitations Medical Decision Making Patient presented to the ER he was complaining of being short of breath and having a fast heart rate. He was in A-fib with RVR at a rate about 150 beats a minute. Patient was given 10 mg Cardizem which slowed his heart rate down for short period of time then patient was given 20 mg Cardizem and put on a Cardizem drip which slowed his heart rate down to the 80s. Patient's blood pressure stayed stable. Lab work was obtained which showed a white count of 28.41 but patient does have CLL and elevated BUN/creatinine consistent with patient's kidney disease of 30 and 1.7. Elevated BNP of approximate 1100. Troponin was stable at 33 and 33.4 with a delta of 0.4. Patient is not complaining of chest pain. Dr. Silverio was consulted who agreed to place patient in CSU. Differential Diagnosis Likely artial flutter; Unlikely palpitations, anxiety, sinus tachycardia, ventricular premature beats, supraventricular tachycardia, ventricular tachycardia or WPW Medical Records I reviewed the patient's medical records. Lab Data I reviewed the patient's lab results. 05/16/23 19:02 05/16/23 19:02 Radiology Impressions Chest X-Ray 05/16/23 18:46 IMPRESSION: No acute findings. Laboratory Results WBC 28.41 10^3/uL (3.29-11.43) H 05/16/23 19: RBC 4.96 10^6/uL (3.85-5.65) 05/16/23 19:02 Hgb 15.00 g/dL (11.27-16.99) 05/16/23 19:02 Hct 45.7 % (37-53) 05/16/23 19:02 MCV 92.1 fl (82-101) 05/16/23 19:02 MCH 30.2 pg (27-33) 05/16/23 19:02 MCHC 32.8 g/dL (30-55) 05/16/23 19:02 RDW 13.6 % (12.1-15.1) 05/16/23 19:02 Plt Count 267 10^3/cmm (157-399) 05/16/23 19:02 MPV 9.3 fL (7.4-10.4) 05/16/23 19:02 Neut % (Auto) 64.6 % 05/16/23 19:02 Lymph % (Auto) 26.9 % 05/16/23 19:02 [place] % (Auto) 6.5 % 05/16/23 19:02 Eos % (Auto) 1.1 % 05/16/23 19:02 Baso % (Auto) 0.2 % 05/16/23 19:02 Neut # (Auto) 18.35 10^3/uL (1.8-7.7) H 05/16/23 19:02 Lymph # (Auto) 7.6 10^3/uL (0.8-4.8) H 05/16/23 19:02 [place] # (Auto) 1.9 10^3/uL (0.2-0.9) H 05/16/23 19:02 Eos # (Auto) 0.3 10^3/uL (0.0-0.8) 05/16/23 19:02 Baso # (Auto) 0.1 10^3/uL (0.0-0.1) 05/16/23 19:02 Nucleated RBC % (auto) 0 % 05/16/23 19:02 Nucleated RBCs # 0.0 /100WBC 05/16/23 19:02 PT 29.40 SECONDS (12.1-14.9) H 05/16/23 19:02 INR 2.67 (0.8-1.2) H 05/16/23 19:02 Sodium 138 mmol/L (136-145) 05/16/23 19:02 Potassium 5.2 mmol/L (3.5-5.1) H 05/16/23 19:02 Chloride 100 mmol/L (98-107) 05/16/23 19:02 Carbon Dioxide 25 mmol/L (22-29) 05/16/23 19:02 Anion Gap 18.2 (5-19) 05/16/23 19:02 BUN 30 mg/dL (8-23) H 05/16/23 19:02 Creatinine 1.7 mg/dL (0.7-1.2) H 05/16/23 19:02 GFR Calculation Not Reportable 05/16/23 19:02 Glucose 150 mg/dL (65-115) H 05/16/23 19:02 Calculated Osmolality 295 mOsm/kg (285-295) 05/16/23 19:02 Calcium 9.0 mg/dL (8.5-10.5) 05/16/23 19:02 Magnesium 1.9 mg/dL (1.7-2.3) 05/16/23 19:02 Total Bilirubin 0.7 mg/dL (0.15-1.2) 05/16/23 19:02 AST 10 U/L (0-40) 05/16/23 19:02 ALT 9 U/L (0-41) 05/16/23 19:02 Alkaline Phosphatase 120 U/L (40-130) 05/16/23 19:02 Troponin T Baseline 33 ng/L (0-15) H 05/16/23 19:02 Troponin T 120 Minute 33.45 ng/L (0-15) H 05/16/23 21:17 Delta Troponin T 0.45 ABS# (0-10) 05/16/23 21:17 NT-Pro-B Natriuret Pep 1122 pg/mL (0-450) H 05/16/23 19:02 Total Protein 6.9 g/dL (6.6-8.7) 05/16/23 19:02 Albumin 3.6 g/dL (3.5-5.2) 05/16/23 19:02 Globulin 3.3 g/dL (1.3-4.6) 05/16/23 19:02 TSH 1.95 uIU/mL (0.27-4.20) 05/16/23 19:02 All radiology interpretation(s) finalized by discharge EKG Data EKG 1: I personally reviewed and interpreted this EKG as follows: EKG interpretation date: 05/16/23 EKG interpretation time: 18:38 Prior EKG tracings: available for review Interpretation: EKG shows ventricular rate 150 beats a minute, QRS duration 130, QTc of 340, atrial flutter/tachycardia with RVR, left axis deviation, right bundle branch block Other EKG comments: Chest X-Ray 05/16/23 18:46 IMPRESSION: No acute findings. EKG 2: I personally reviewed and interpreted this EKG as follows: EKG interpretation date: 05/16/23 EKG interpretation time: 20:48 Prior EKG tracings: available for review Interpretation: EKG showed ventricular rate 85 bpm, QRS duration 81, QTc of 381, atrial fibrillation, possible right ventricular conduction delay Other EKG comments: Chest X-Ray 05/16/23 18:46 IMPRESSION: No acute findings. Discharge Plan Discharge Patient Disposition: Admitted As Inpatient Clinical Impression: Atrial flutter with rapid ventricular response, Chronic lymphocytic leukemia, COPD (chronic obstructive pulmonary disease) Condition: Stable Coding Level of Care Code ED Ride Attendant for 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
[2023-05-16] MEDS: dilTIAZem 5 mg/mL SDV 5 mL 10 MG IVP (18:54)
[2023-05-16 19:10] LABS: Basophils # 0.1 10^3/uL (0.0-0.1); Basophils % 0.2 %; Eosinophils # 0.3 10^3/uL (0.0-0.8); Eosinophils % 1.1 %; Hematocrit 45.7 % (37-53); Lymphocytes # 7.6 10^3/uL (0.8-4.8); Lymphocytes % 26.9 %; Mean Corpuscular HGB Conc 32.8 g/dL (30-55); Mean Corpuscular Hemoglobin 30.2 pg (27-33); Mean Corpuscular Volume 92.1 fl (82-101); Mean Platelet Volume 9.3 fL (7.4-10.4); Monocytes # 1.9 10^3/uL (0.2-0.9); Monocytes % 6.5 %; Neutrophils # 18.35 10^3/uL (1.8-7.7); Neutrophils % 64.6 %; Nucleated Red Blood Cells % 0 %; Platelet Count 267 10^3/cmm (157-399); Red Blood Count 4.96 10^6/uL (3.85-5.65); Red Cell Distribution Width 13.6 % (12.1-15.1); White Blood Count 28.41 10^3/uL (3.29-11.43)
[2023-05-16 19:26] LABS: INR 2.67 (0.8-1.2); Slide Review Slide Review Perform
[2023-05-16 19:32] LABS: Troponin(5th) Baseline 33 ng/L (0-15)
[2023-05-16] MEDS: dilTIAZem 100 MG in sodium chloride 0.9% (add-van) 100 ML IV (19:33)
[2023-05-16 19:42] LABS: Alanine Aminotransferase 9 U/L (0-41); Albumin Level 3.6 g/dL (3.5-5.2); Alkaline Phosphatase 120 U/L (40-130); Aspartate Amino Transferase 10 U/L (0-40); Blood Urea Nitrogen 30 mg/dL (8-23); Carbon Dioxide 25 mmol/L (22-29); Globulin 3.3 g/dL (1.3-4.6); Glucose 150 mg/dL (65-115); Magnesium 1.9 mg/dL (1.7-2.3); NT Pro B Type Natriuretic Pept 1122 pg/mL (0-450); Thyroid Stimulating Hormone 1.95 uIU/mL (0.27-4.20); Total Bilirubin 0.7 mg/dL (0.15-1.2); Total Protein 6.9 g/dL (6.6-8.7)
--- NOTE | 2023-05-16 20:48 | ECG_ITS ---
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 Measurements Intervals [place] Rate: 85 P: 0 MS: 0 QRS: 24 QRSD: 81 T: 76 QT: 339 QTc: 404 Interpretive Statements ATRIAL FIBRILLATION with intermittent sinus beats POSSIBLE RIGHT VENTRICULAR CONDUCTION DELAY [RSR (QR) IN V1/V2] ABNORMAL RHYTHM ECG Compared to ECG 01/01/2023 19:38:15 Sinus bradycardia no longer present Incomplete right bundle-branch block no longer present T-wave abnormality no longer present Electronically Signed On 05-17-2023 0:49:17 INFORMATION SECURITY SYSTEMS INSTRUCTOR by Rudi Briscoe M.D. [id number]
[2023-05-16 21:30] LABS: Anion Gap 18.2 (5-19); Chloride 100 mmol/L (98-107); Osmolality Calculated 295 mOsm/kg (285-295); Potassium 5.2 mmol/L (3.5-5.1); Sodium 138 mmol/L (136-145)
[2023-05-16 21:47] LABS: Troponin 5 2HR 33.45 ng/L (0-15)
[2023-05-16 21:49] LABS: Troponin 5 2HR Delta 0.45 ABS# (0-10)
--- NOTE | 2023-05-16 23:05 | PM.HP ---
Providers/Chief Complaint Primary Care Provider: Autumn Pierre DO Chief Complaint: Resp Distress History of Present Illness Very pleasant, slightly hard of hearing gentleman presented to the hospital due to dyspnea, copious phlegm production, easy fatigability, tachycardia, in ER noted to be in atrial fibrillation with RVR, heart rates into the 150s, received Cardizem push, started on Cardizem drip. He has been wheezing, coughing up quite a bit of phlegm. Chest x-ray without pneumonia. Endorses history of COPD. Has been using his inhaler but without improvement. On review of systems reports that he had an episode of vomiting this morning. Review of Systems Const: Reports: fatigue; Denies: fever(s), chills or body aches ENMT: Denies: throat pain Card: Reports: dyspnea on exertion; Denies: chest pain, edema or pre-syncope Resp: Reports: dyspnea and productive cough; Denies: hemoptysis GI: Reports: vomiting; Denies: abdominal pain, nausea, diarrhea, constipation, hematochezia or melena : Denies: flank pain, difficulty urinating, urinary frequency or hematuria Musc: Denies: back pain, joint swelling or joint redness Skin/Breast: Denies: rash or new lesions Neuro: Denies: headache(s), numbness in extremities, weakness in extremities, dizziness, confusion or seizure-like activity Medications/Allergies Home Medications Medication Instructions Recorded Confirmed Last Taken Type vit C 250 mg-vit E 90 mg-zinc 40 1 tab PO DAILY 08/19/21 04/18/23 05/16/22 History mg-copper 1 [id number]-newhjc capsule (PreserVision AREDS-2) sennosides 8.6 mg-docusate sodium 1 tab-cap PO BID constipation #60 11/23/21 04/18/23 05/16/22 Rx 50 mg tablet (Senna-S) tabs potassium chloride 10 mEq 10 meq PO DAILY PRN Take with 02/03/22 04/18/23 Unknown Rx tablet,extended release fureosemide as needed #90 tabs fluticasone 500 mcg-salmeterol 50 1 inh inhalation BID #60 ea 04/06/22 04/18/23 05/16/22 Rx mcg/dose blistr powdr for inhalation (Advair Diskus) umeclidinium 62.5 mcg/actuation 1 inh inhalation DAILY #30 ea 04/06/22 04/18/23 05/17/22 Rx blister powder for inhalation (Incruse Ellipta) allopurinol 300 mg tablet 150 mg PO DAILY 05/17/22 04/18/23 05/16/22 History furosemide 20 mg tablet 10 mg PO DAILY #45 tabs 07/24/22 04/18/23 Unknown Rx linagliptin 5 mg tablet (Tradjenta) 5 mg PO DAILY #90 tabs 08/28/22 04/18/23 Unknown Rx albuterol sulfate 2.5 mg/3 mL 2.5 mg (3 mL) inhalation Q6H PRN 09/06/22 04/18/23 Unknown Rx (0.083 %) solution for nebulization shortness of breath or wheezing #360 mL citalopram 20 mg tablet See Rx Instructions .Route 09/28/22 04/18/23 Unknown Rx .COMPLEX #90 tabs warfarin 3 mg tablet 3 mg PO DIRECTED #90 tabs 10/25/22 04/18/23 Unknown Rx olmesartan 5 mg tablet 5 mg PO DAILY 01/02/23 04/18/23 Unknown History nystatin 100,000 unit/gram topical See Rx Instructions .Route 02/19/23 04/18/23 Unknown Rx cream .COMPLEX #30 grams warfarin 2 mg tablet 2 mg PO DIRECTED #90 tabs 02/26/23 04/18/23 Unknown Rx warfarin 4 mg tablet 4 mg PO DIRECTED #90 tabs 02/26/23 04/18/23 Unknown Rx oxycodone 5 mg tablet 5 mg PO Q6H PRN pain 7 days #28 03/10/23 04/18/23 Unknown Rx tabs citalopram 10 mg tablet See Rx Instructions .Route 04/02/23 04/18/23 Unknown Rx .COMPLEX #90 tabs tamsulosin 0.4 mg capsule See Rx Instructions .Route 04/02/23 04/18/23 Unknown Rx .COMPLEX #90 caps amiodarone 200 mg tablet 100 mg PO BEDTIME #45 tabs 04/06/23 04/18/23 Unknown Rx atorvastatin 20 mg tablet See Rx Instructions .Route 04/09/23 04/18/23 Unknown Rx .COMPLEX #90 tabs budesonide 0.5 mg/2 mL suspension 0.5 mg (2 mL) inhalation BID COPD 04/18/23 04/18/23 Unknown Rx for nebulization J44.9 #120 mL revefenacin 175 mcg/3 mL solution 175 mcg (3 mL) inhalation DAILY 04/18/23 04/18/23 Unknown Rx for nebulization (Yupelri) COPD J44.9 #90 mL formoterol fumarate 20 mcg/2 mL 2 ml inhalation BID COPD J44.9 04/24/23 Unknown Rx solution for nebulization #120 mL (Perforomist) ipratropium 0.5 mg-albuterol 3 mg 3 ml inhalation Q6H PRN COPD J44.9 04/24/23 Unknown Rx (2.5 mg base)/3 mL nebulization #180 mL soln albuterol sulfate 90 mcg/actuation 2 puff inhalation Q4H PRN 05/07/23 Unknown Rx aerosol inhaler Shortness Of Breath #8.5 grams Allergies Allergy/AdvReac Type Severity Reaction Status Date / Time No Known Allergies Allergy Verified 04/18/23 11: PFSH Acute PFSH: Medical History Acute and chronic respiratory failure with hypoxia Acute exacerbation of chronic obstructive airways disease Atopic dermatitis, unspecified Atrial fibrillation with rapid ventricular response Bradycardia CAP (community acquired pneumonia) CKD (chronic kidney disease) CKD (chronic kidney disease), stage IV CLL (chronic lymphocytic leukemia) Closed fracture of right hip COPD (chronic obstructive pulmonary disease) Delirium Depression Displaced fracture of right femoral neck Dyslipidemia Edema leg Essential (primary) hypertension Frontal lobe dementia GERD (gastroesophageal reflux disease) Gout, unspecified Hyperkalemia Long-term (current) use of anticoagulants, INR goal 2.0-3.0 Lymphocytosis Orthopnea Pain in left finger(s) Pain in right knee Pneumonia Type 2 diabetes mellitus without complications Unspecified atrial fibrillation Viral upper respiratory infection Word finding difficulty Surgical History History of cholecystectomy History of left hip replacement Dr. Bennett - 11/2021 at [place], [place] History of prostate surgery History of total knee replacement Family History Other Cancer Hypertension Lung disease Denies family history of Diabetes CAD (coronary artery disease) Clotting disorder Dementia Hyperlipidemia Psychiatric illness Chronic kidney disease (CKD) Suicide Anesthesia complication Bleeding disorder Stroke Social History Smoking and tobacco/nicotine status: former use of tobacco/nicotine Quit status (tobacco/nicotine): has quit using Year quit tobacco: 2010 - 1PPD x 50 Years Second hand smoke exposure: No Alcohol intake: current Substance/Drug Use: never Lives independently: Yes Household members: spouse Marital status: Current occupational status: retired Do you think of yourself as: Straight/Heterosexual Current gender identity: Male Vitals/I&O/Wt Last Vital Signs Temp 98.2 F 05/16/23 18:42 Pulse 86 05/16/23 22:43 Resp 16 05/16/23 22:43 BP 113/81 05/16/23 22:43 Pulse Ox 95 05/16/23 22:43 O2 Del Method Nasal Cannula 05/16/23 19:35 O2 Flow Rate 3 05/16/23 19:35 05/16/23 05/16/23 05/17/23 14:59 22:59 06:59 Intake Total 7.375 / 7.375 Balance 7.375 / 7.375 Weight last 48 hrs Weight 81.647 kg Physical Exam Narrative: Accompanied by his . Const: COMMON NORMALS: patient oriented x3 and alert GENERAL APPEARANCE: cooperative ORIENTATION/CONSCIOUSNESS: Yes awake HENMT: COMMON NORMALS: oropharynx normal Neck/C-Spine: COMMON NORMALS: no JVD Resp: COMMON NORMALS: normal respiratory effort and clear to auscultation bilaterally AUSCULTATION: rhonchi, wheezes and diminished lung sounds Cardio: COMMON NORMALS: no JVD, regular rhythm, S1 normal heart sound present, S2 normal heart sound present and No murmurs present (Cardio) RATE: tachycardic RHYTHM: abnormal rhythm irregularly irregular HEART SOUNDS: S1 normal heart sound present and S2 normal heart sound present GI: COMMON NORMALS: Normal to inspection, nondistended, normoactive bowel sounds present, Soft to palpation and non-tender PALPATION: Yes Soft to palpation Extremity: COMMON NORMALS: no joint enlargement and no pedal edema Neuro: COMMON NORMALS: patient oriented x3 and moves all extremities SENSORIUM/ORIENTATION: Yes alert Skin: COMMON NORMALS: no rashes or lesions noted GENERAL SKIN EXAM: no rashes or lesions noted Data 05/16/23 19:02 05/16/23 19:02 A&P Assessment and plan (1) Paroxysmal atrial fibrillation with RVR: Suspect likely triggered by COPD exacerbation. A-fib with RVR. Vitals reviewed, heart rates noted into 150s. Discussed with ER physician, ER documentation reviewed. Received Cardizem, started on Cardizem drip due to lack of response. At risk of hypotension, monitor vitals. Monitor on telemetry. Reviewed CBC, noted chronic leukocytosis, although somewhat worse than usual, chest x-ray without obvious pneumonia. Reviewed TSH, WNL. Reviewed electrolytes, noted mild hyperkalemia 5.2. Hold potassium, hold olmesartan. Follow-up chemistry requested. Reviewed magnesium, noted 1.9. Follow-up magnesium level. Reviewed troponin, noted mild elevation 33-33.45. He has not had any chest pain or pressure. Reviewed EKG, noted atrial flutter. On my interpretation without suggestion of acute NC. Incomplete RBBB. Continue amiodarone. Continue warfarin, noted as of 05/14 started on new regimen with 4 mg warfarin daily except for 2 mg on Tuesdays and . Reviewed INR, noted 2.67. Follow-up INR. (2) COPD exacerbation: Severe exacerbation of COPD, with dyspnea, purulent sputum, diminished air entry, rhonchi, wheezing. Hypoxia. Discussed with him treatment with ceftriaxone, Solu-Medrol. DuoNebs. Collect sputum culture. Respiratory viral panel. Flutter valve. Oxygen support as needed. (3) Chronic lymphocytic leukemia: With chronically elevated WBC. (4) Physical deconditioning: He is significantly, dyspnea on exertion. Suspect combination of COPD dissipation, A-fib with RVR. Has been having more difficulties with mobility. Will obtain PT assessment. Plan DM2: Requesting Accu-Cheks. Sliding scale insulin. Consistent carb diet. CKD: Creatinine reviewed, slightly worsened recently at 1.7. BUN noted 30. Hold olmesartan. Noted mild hyperkalemia. Hold potassium supplement. Reassess renal function. GERD: PPI Multiple other medical problems. Attestations Medical Necessity Statement*: Admission of over 2 midnights anticipated for assessment management of atrial fibrillation with RVR, severe exacerbation of COPD. Diagnoses Paroxysmal atrial fibrillation with RVR I48.0 COPD exacerbation J44.1 Chronic lymphocytic leukemia C91.10 Physical deconditioning R53.81
[2023-05-17] VITALS (116 sets, daily range): BP systolic 77–159; BP diastolic 47–84; PULSE 48–104; RESP 14–35; TEMP 36.4–37; O2SAT 80–99
--- NOTE | 2023-05-17 00:42 | USCV_ITS ---
Marieedison Jesús Age: 83 Gender: M : 1940 Exam Date: 05/17/2023 01:31 Ordering Phys: Aamir Silverio MD Technologist: JUSTYNA [place] [facility] [place]ication: dyspnea on exertion, history of COPD, O2 dependent 3L, history of atrial fibrillation BP: 132 / 82 HR: 81 Rhythm: atrial fibrillation with some strings of sinus rhythm Technical Quality: Fair MEASUREMENTS (Male / Female) Normal Values 2D ECHO LV Diastolic Diameter PLAX 3.7 cm 4.2 - 5.9 / 3.9 - 5.3 cm LV Systolic Diameter PLAX 2.9 cm IVS Diastolic Thickness 1.3 cm 0.6 - 1.0 / 0.6 - 0.9 cm IVS Systolic Thickness 2.0 cm LVPW Diastolic Thickness 1.4 cm 0.6 - 1.0 / 0.6 - 0.9 cm LVPW Systolic Thickness 1.4 cm LVOT Diameter 2.0 cm LV Ejection Fraction 2D Teich 45.8 % LV Ejection Fraction MOD 2C 58.9 % LV Ejection Fraction 2C AL 61.8 % LA Diameter 3.4 cm LA Width 2.9 cm LA Height 4.8 cm RA Width 3.2 cm RA Height 3.9 cm Aorta at Sinotubular Diameter 3.2 cm IVC Diameter 2.4 cm M-MODE Aortic Annulus Diameter 3.5 cm LA Ao Ratio MM 1.0 MV E Point Septal Separation 0.5 cm DOPPLER AV Peak Velocity 188.0 cm/s LVOT Peak Velocity 30.0 cm/s AV Area Cont Eq vti 0.6 cm squared AV Area Cont Eq pk 0.5 cm squared MV Area PHT 5.0 cm squared Mitral E to A Ratio 196.7 MV E' Velocity 64.5 cm/s Mitral E to MV E' Ratio 9.5 Mitral E to LV E' Lateral Ratio 10.5 Mitral E to LV E' Septal Ratio 8.7 TR Peak Velocity 218.0 cm/s TR Peak Gradient 19.0 mmHg TV Peak E Velocity 66.0 cm/s Right Atrial Pressure 5.0 mmHg Pulmonary Artery Systolic Pressu 24.0 mmHg PV Peak Velocity 142.0 cm/s RV Acceleration Time 0.1 s RV Ejection Time 0.3 s RV AcT/ET 0.3 FINDINGS Left Ventricle Left ventricle is normal in size. LV systolic function is normal with EF of 55-60%. No regional wall motion abnormalities are seen. Right Ventricle Normal in size and function Right Atrium Normal in size Left Atrium Normal in size Mitral Valve Grossly normal Aortic Valve Grossly aortic valve is thickened. Mean gradient across aortic valve is normal Tricuspid Valve Mild tricuspid regurgitation. Insufficient TR jet to calculate RVSP. Pulmonic Valve Trace pulmonic regurgitation Pericardium Normal Aorta Normal in size IVC Dilated CONCLUSIONS Technically limited quality echocardiogram. LV systolic function is normal with EF of 55 to 60%. Aortic valve is thickened. Trace tricuspid regurgitation Trace pulmonic regurgitation IVC is dilated. Compared to prior echocardiogram from 01/29/2022, no significant changes are seen Cameron Lopez MD (Electronically Signed) Final Date: 17 May 2023 10:46 S
[2023-05-17 00:59] LABS: Troponin 5 6HR 33.03 ng/L (0-15)
[2023-05-17 01:00] LABS: Troponin 5 6HR Delta 0.03 ng/L (0-12)
[2023-05-17] MEDS: cefTRIAXone 1,000 MG in sodium chloride 0.9% (plus) 50 ML 100 MG IV (01:44)
[2023-05-17] MEDS: amiodarone 200 mg Tablet 100 MG PO (01:45)
[2023-05-17] MEDS: dilTIAZem 100 MG in sodium chloride 0.9% (add-van) 100 ML 15 MG IV (01:57)
[2023-05-17] MEDS: ipratropium-albuterol 3 mL Neb INHALATION ×5 (02:22→19:58)
[2023-05-17] MEDS: methylPREDNISolone sod succ 40 mg/mL INJ IVP ×4 (02:25→19:35)
--- NOTE | 2023-05-17 02:41 | ECG_ITS ---
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 Measurements Intervals [place] Rate: 88 P: 0 CT: 0 QRS: 55 QRSD: 89 T: 81 QT: 292 QTc: 354 Interpretive Statements ATRIAL FIBRILLATION POSSIBLE RIGHT VENTRICULAR CONDUCTION DELAY [RSR (QR) IN V1/V2] SEPTAL MYOCARDIAL INFARCTION , PROBABLY OLD [40+ ms Q WAVE IN V1/V2] Compared to ECG 05/16/2023 20:48:42 Myocardial infarct finding now present Electronically Signed On 05-17-2023 11:13:35 COP[employer] AND PR[employer] ASSOCIATE by Cameron Lopez M.D. [id number]
[2023-05-17 03:28] LABS: Adenovirus Not Detected (NOT DETECT); Chlamydia Pneumoniae Not Detected (NOT DETECT); Coronavirus 229E,HKU1,NL63,OC4 Not Detected (NOT DETECT); Human Metapneumovirus Not Detected (NOT DETECT); Human Rhinovirus/Enterovirus Not Detected (NOT DETECT); Influenza A Not Detected (NOT DETECT); Influenza A H1 Not Detected (NOT DETECT); Influenza A H1-2009 Not Detected (NOT DETECT); Influenza A H3 Not Detected (NOT DETECT); Influenza B Not Detected (NOT DETECT); Mycoplasma Pneumoniae Not Detected (NOT DETECT); Parainfluenza Virus Type 1 Not Detected (NOT DETECT); Parainfluenza Virus Type 2 Not Detected (NOT DETECT); Parainfluenza Virus Type 3 Not Detected (NOT DETECT); Parainfluenza Virus Type 4 Not Detected (NOT DETECT); Respiratory Syncytial Virus A Not Detected (NOT DETECT); Respiratory Syncytial Virus B Not Detected (NOT DETECT); SARS-COV-2 Not Detected (NOT DETECT)
[2023-05-17] MEDS: LORazepam 2 mg/mL INJ 1 mL 0.5 MG IVP (03:35)
[2023-05-17 04:53] LABS: Basophils # 0.1 10^3/uL (0.0-0.1); Basophils % 0.2 %; Eosinophils # 0.2 10^3/uL (0.0-0.8); Eosinophils % 0.6 %; Hematocrit 43.9 % (37-53); Lymphocytes # 7.7 10^3/uL (0.8-4.8); Lymphocytes % 29.8 %; Mean Corpuscular HGB Conc 31.4 g/dL (30-55); Mean Corpuscular Hemoglobin 30.1 pg (27-33); Mean Corpuscular Volume 95.6 fl (82-101); Mean Platelet Volume 9.5 fL (7.4-10.4); Monocytes % 3.9 %; Neutrophils # 16.62 10^3/uL (1.8-7.7); Neutrophils % 64.8 %; Nucleated Red Blood Cells % 0 %; Platelet Count 239 10^3/cmm (157-399); Red Blood Count 4.59 10^6/uL (3.85-5.65); Red Cell Distribution Width 13.9 % (12.1-15.1); White Blood Count 25.67 10^3/uL (3.29-11.43)
[2023-05-17 05:04] LABS: INR 3.12 (0.8-1.2)
[2023-05-17 05:16] LABS: Anion Gap 14.2 (5-19); Blood Urea Nitrogen 33 mg/dL (8-23); Calcium 9.1 mg/dL (8.5-10.5); Carbon Dioxide 26 mmol/L (22-29); Chloride 101 mmol/L (98-107); Creatinine Clr Calc Pharmacy 34.8076; Glucose 151 mg/dL (65-115); Magnesium 2.2 mg/dL (1.7-2.3); Osmolality Calculated 292 mOsm/kg (285-295); Potassium 5.2 mmol/L (3.5-5.1); Sodium 136 mmol/L (136-145)
[2023-05-17 05:18] LABS: Slide Review Slide Review Perform
--- NOTE | 2023-05-17 05:24 | PC.NURSE ---
Patient arrived on unit with chief complaint of SOB, reports generalized weakness for past 2-3 weeks. Aflutter on arrival from ED however it is intermittent between flutter, fib, and sinus. Cardizem drip titrated down throughout shift per protocol.
[2023-05-17 05:48] LABS: ABG PCO2 41.6 mmHg (35-45); ABG PH Result 7.43 (7.35-7.45); Alveolar-Arterial Oxygen Gradi 3.2 mmHg (5-10); Arterial Blood Gas Hematocrit 47.9 % (42-52); Base Excess ABG 2.8 mmol/L (-2.0-2.0); Blood Gas Allen Test Pos; Blood Gas LPM 2.5 %; Blood Gas Operator Identificat JB; Blood Gas Sample Site Radial, left; Blood Gas Sample Type Arterial; Carboxyhemoglobin 1.3 %THgb (0.4-20.1); HCO3 ABG 27.5 mmol/L (22-26); HGB O2 Sat 94.4 % (95-100); Ionized Calcium Level - ABG 1.2 mmol/L (1.1-1.4); Methemoglobin 0.5 % (0.4-1.5); Oxygen Device NC; Oxygen Saturation ABG 96.1; PO2 ABG 73.8 mmHg (80.0-100.0); Total Hemoglobin 15.6 g/dL (14-18)
[2023-05-17] MEDS: azithromycin 500 MG in sodium chloride 0.9% 250 ML 250 MG IV (08:55)
[2023-05-17] MEDS: insulin lispro 100 unit/1 mL SUBCUT ×4 (08:56→21:30)
[2023-05-17] MEDS: FUROsemide 10 mg/mL SDV 4mL 40 MG IVP (08:56)
[2023-05-17] MEDS: dilTIAZem 30 mg Tablet PO ×3 (08:56→21:29)
[2023-05-17 09:17] LABS: Procalcitonin 0.22 ng/mL (0-0.5)
[2023-05-17 11:44] LABS: Add Urine Microscopic? YES; Bilirubin Urine Neg (Negative); Blood Urine 2+ (Negative); Glucose Urine UA Norm (Normal); Ketones Urine 1+ (Negative); Leukocyte Esterase Urine Negative (Negative); Nitrate Urine Negative (Negative); Protein Urine Trace (Negative); Urine Appearance Clear (CLEAR); Urine Color Yellow (Yellow); Urobilinogen Urine Norm (Negative); pH Urine 5 (5-7)
[2023-05-17 12:27] LABS: Glucose Point of Care 229 mg/dL (70-110)
[2023-05-17 12:43] LABS: Add Urine Culture? No; Mucus Urine 1+ /hpf; RBC Urine 0-4 /hpf (0-2); Squamous Epithelial Cell Urine 0-4 /hpf (0-5); WBC Urine 0-4 /hpf (0-5)
[2023-05-17] MEDS: warfarin 2 mg Tablet PO (14:24)
--- NOTE | 2023-05-17 15:47 | PC.NURSE ---
Sinus hugo/A Flutter Dr. Rodriguez notified that patient is switching from sinus hugo in the 40s and Atrial flutter. Cardizem adjusted. Strip placed in chart.
--- NOTE | 2023-05-17 15:49 | PM.PN ---
Subjective Subjective: Patient was seen this morning, he is sitting up in a chair, he denies any chest pain, no palpitations, currently he is in sinus rhythm, but comes in and out of sinus rhythm to his atrial flutter, rates well controlled currently in the 70s, he does report a cough, sinus congestion, is receiving antibiotic therapy, denies any lightheadedness, dizziness Vitals/I&O/Wt Last Vital Signs Temp 98.6 F 05/17/23 00:48 Pulse 77 05/17/23 14:11 Resp 22 H 05/17/23 14:00 BP 111/66 05/17/23 12:15 Pulse Ox 97 05/17/23 14:00 O2 Del Method Nasal Cannula 05/17/23 14:00 O2 Flow Rate 2 05/17/23 14:00 05/17/23 05/17/23 05/17/23 06:59 14:59 22:59 Intake Total 124.875 / 138.708 796 / 796 Output Total 175 / 175 600 / 600 Balance -50.125 / -36.292 196 / 196 Weight last 48 hrs Weight 81.647 kg Physical Exam Const: COMMON NORMALS: no acute distress and patient oriented x3 Resp: COMMON NORMALS: normal respiratory effort, No retractions, No use of accessory muscles and clear to auscultation bilaterally AUSCULTATION: clear to auscultation bilaterally Cardio: COMMON NORMALS: regular rate, regular rhythm, S1 normal heart sound present and S2 normal heart sound present RATE: regular rate RHYTHM: regular rhythm HEART SOUNDS: S1 normal heart sound present and S2 normal heart sound present GI: COMMON NORMALS: Normal to inspection, nondistended, normoactive bowel sounds present and non-tender Extremity: COMMON NORMALS: no pedal edema Neuro: COMMON NORMALS: patient oriented x3 Psych: COMMON NORMALS: mental status grossly normal Data 05/17/23 04:00 05/17/23 04:00 Micro: Microbiology 05/17/23 09:08 Blood Culture - Preliminary Blood SPECIMEN COLLECTED 05/17/23 09:07 Blood Culture - Preliminary Blood SPECIMEN COLLECTED A&P Assessment and plan (1) Paroxysmal atrial fibrillation with RVR: Currently on Cardizem drip at 5, wean off, p.o. Cardizem 30 every 6 hours, ? Continue Coumadin, ? Monitor INR CONCLUSIONS ?Technically limited quality echocardiogram. ?LV systolic function is normal with EF of 55 to 60%. ?Aortic valve is thickened. ?Trace tricuspid regurgitation ?Trace pulmonic regurgitation ?IVC is dilated. ?Compared to prior echocardiogram from 01/29/2022, no significant ?changes are seen (2) COPD exacerbation: Severe exacerbation of COPD, with dyspnea, purulent sputum, diminished air entry, rhonchi, wheezing. Hypoxia. Discussed with him treatment with ceftriaxone, Solu-Medrol. DuoNebs. Collect sputum culture. Respiratory viral panel. Flutter valve. Oxygen support as needed. ? Continue Rocephin, azithromycin (3) Chronic lymphocytic leukemia: With chronically elevated WBC. (4) Physical deconditioning: He is significantly, dyspnea on exertion. Suspect combination of COPD dissipation, A-fib with RVR. Has been having more difficulties with mobility. Will obtain PT assessment. Plan DM2: Requesting Accu-Cheks. Sliding scale insulin. Consistent carb diet. CKD: Creatinine reviewed, slightly worsened recently at 1.7. BUN noted 30. Hold olmesartan. Noted mild hyperkalemia. Hold potassium supplement. Reassess renal function. GERD: PPI Multiple other medical problems. Attestations Medical Necessity Statement*: Patient requires hospitalization for A-fib with RVR, requiring Cardizem drip, respiratory tract infection COPD exacerbation requiring antibiotics, elevated BNP, 1 dose of Lasix today, for fluid overload, Diagnoses Paroxysmal atrial fibrillation with RVR I48.0 COPD exacerbation J44.1 Chronic lymphocytic leukemia C91.10 Physical deconditioning R53.81
[2023-05-17] MEDS: atorvastatin 40 mg Tablet 20 MG PO (17:46)
[2023-05-17] MEDS: tamsulosin 0.4 mg Capsule PO (17:46)
[2023-05-17 19:05] LABS: Glucose Point of Care 179 mg/dL (70-110)
[2023-05-17 19:05] LABS: Glucose Point of Care 206 mg/dL (70-110)
[2023-05-17] MEDS: budesonide 0.5 mg/2 mL Neb INHALATION (19:58)
[2023-05-17 21:15] LABS: Glucose Point of Care 218 mg/dL (70-110)
[2023-05-18] VITALS (53 sets, daily range): BP systolic 103–142; BP diastolic 52–78; PULSE 51–115; RESP 15–28; TEMP 36.4–36.5; O2SAT 93–98
[2023-05-18] MEDS: cefTRIAXone 1,000 MG in sodium chloride 0.9% (plus) 50 ML 100 MG IV (02:11)
[2023-05-18] MEDS: methylPREDNISolone sod succ 40 mg/mL INJ IVP ×3 (02:11→22:03)
[2023-05-18] MEDS: ipratropium-albuterol 3 mL Neb INHALATION ×3 (02:53→13:21)
[2023-05-18 05:57] LABS: Basophils # 0.1 10^3/uL (0.0-0.1); Basophils % 0.2 %; Hematocrit 39.4 % (37-53); Lymphocytes # 7.4 10^3/uL (0.8-4.8); Lymphocytes % 22.9 %; Mean Corpuscular HGB Conc 32.5 g/dL (30-55); Mean Corpuscular Hemoglobin 30.3 pg (27-33); Mean Corpuscular Volume 93.4 fl (82-101); Mean Platelet Volume 9.9 fL (7.4-10.4); Monocytes # 0.7 10^3/uL (0.2-0.9); Monocytes % 2.3 %; Neutrophils # 23.86 10^3/uL (1.8-7.7); Neutrophils % 73.8 %; Nucleated Red Blood Cells % 0 %; Platelet Count 226 10^3/cmm (157-399); Red Blood Count 4.22 10^6/uL (3.85-5.65); Red Cell Distribution Width 13.5 % (12.1-15.1)
[2023-05-18 06:09] LABS: INR 3.65 (0.8-1.2)
[2023-05-18 06:16] LABS: Anion Gap 14.6 (5-19); Blood Urea Nitrogen 59 mg/dL (8-23); Carbon Dioxide 25 mmol/L (22-29); Chloride 100 mmol/L (98-107); Glucose 247 mg/dL (65-115); Osmolality Calculated 305 mOsm/kg (285-295); Potassium 4.6 mmol/L (3.5-5.1); Sodium 135 mmol/L (136-145)
[2023-05-18 06:17] LABS: C Reactive Protein 106.7 mg/L (0.0-4.9)
[2023-05-18 06:23] LABS: Slide Review Slide Review Perform
[2023-05-18 06:25] LABS: White Blood Count 32.32 10^3/uL (3.29-11.43)
[2023-05-18 06:28] LABS: NT Pro B Type Natriuretic Pept 1245 pg/mL (0-450); Procalcitonin 0.27 ng/mL (0-0.5)
[2023-05-18] MEDS: allopurinol 300 mg Tablet 150 MG PO (06:46)
[2023-05-18 06:59] LABS: Glucose Point of Care 230 mg/dL (70-110)
[2023-05-18] MEDS: azithromycin 500 MG in sodium chloride 0.9% 250 ML 250 MG IV (07:59)
[2023-05-18] MEDS: insulin lispro 100 unit/1 mL SUBCUT ×4 (08:00→22:04)
[2023-05-18] MEDS: dilTIAZem 30 mg Tablet PO ×4 (08:01→22:04)
[2023-05-18] MEDS: citalopram 20 mg Tablet 30 MG PO (08:02)
--- NOTE | 2023-05-18 08:37 | P.CONIM_ITS ---
Providers/Reason For Consult Consulting Physician/Specialty*: Dr. Wooten Reason for Consult*: A-fib/arrhythmia Attending Physician: Je Rodriguez MD Primary Care Provider: Autumn Pierre DO History of Present Illness History of Present Illness Jesús Cole is a 83 year old male with history of paroxysmal atrial fibrillation, hypertension, COPD, diabetes, CLL and hyperlipidemia. Patient was admitted to the hospital with increased cough and phlegm production. Patient was found to be in a flutter with RVR. Patient was started on IV amiodarone with subsequent conversion to normal sinus rhythm. Telemetry strip revealed normal sinus rhythm with PACs no high-grade AV block seen. Short pause from conversion to sinus rhythm from atrial fibrillation. Currently doing well without any chest pain or shortness of breath. Heart rate is 75. Review of Systems Const: Denies: fever(s) or chills Eyes: Denies: change in vision Card: Reports: chest pain (occasional); Denies: swelling of feet/ankles, lightheadedness, dyspnea on exertion or orthopnea Resp: Denies: dyspnea, productive cough or non-productive cough GI: Denies: abdominal pain, nausea or vomiting Musc: Reports: neck pain, back pain and joint pain Neuro: Denies: headache(s) or dizziness Psych: Denies: anxiety or depression Fidencoi/Lymph: Denies: easy bruising or easy bleeding Medications/Allergies Home Medications Medication Instructions Recorded Confirmed Last Taken Type vit C 250 mg-vit E 90 mg-zinc 40 1 tab PO DAILY 08/19/21 05/17/23 05/16/23 History mg-copper 1 [id number] capsule (PreserVision AREDS-2) sennosides 8.6 mg-docusate sodium 1 tab-cap PO BID constipation #60 11/23/21 05/17/23 05/16/22 Rx 50 mg tablet (Senna-S) tabs fluticasone 500 mcg-salmeterol 50 1 inh inhalation BID #60 ea 04/06/22 05/17/23 05/16/23 Rx mcg/dose blistr powdr for inhalation (Advair Diskus) umeclidinium 62.5 mcg/actuation 1 inh inhalation DAILY #30 ea 04/06/22 05/17/23 05/16/23 Rx blister powder for inhalation (Incruse Ellipta) allopurinol 300 mg tablet 150 mg PO QAM 05/17/22 05/17/23 05/16/23 History citalopram 20 mg tablet See Rx Instructions .Route 09/28/22 05/17/23 05/16/23 Rx .COMPLEX #90 tabs olmesartan 5 mg tablet 5 mg PO QAM 01/02/23 05/17/23 05/16/23 History warfarin 2 mg tablet 2 mg PO DIRECTED #90 tabs 02/26/23 05/17/23 05/16/23 Rx warfarin 4 mg tablet 4 mg PO DIRECTED #90 tabs 02/26/23 05/17/23 05/16/23 Rx citalopram 10 mg tablet See Rx Instructions .Route 04/02/23 05/17/23 05/16/23 Rx .COMPLEX #90 tabs amiodarone 200 mg tablet 100 mg PO BEDTIME #45 tabs 04/06/23 05/17/23 05/15/23 Rx revefenacin 175 mcg/3 mL solution 175 mcg (3 mL) inhalation DAILY 04/18/23 05/17/23 05/16/23 Rx for nebulization (Rosie) COPD J44.9 #90 mL albuterol sulfate 90 mcg/actuation 2 puff inhalation Q4H PRN 05/07/23 05/17/23 Unknown Rx aerosol inhaler Shortness Of Breath #8.5 grams atorvastatin 20 mg tablet 20 mg PO QPM 05/17/23 05/17/23 05/15/23 History calcium carbonate 600 mg-vitamin 1 tab PO QAM 05/17/23 05/17/23 05/16/23 History D3 5 mcg (200 unit) tablet furosemide 20 mg tablet 10 mg PO QAM 05/17/23 05/17/23 05/16/23 History linagliptin 5 mg tablet (Tradjenta) 5 mg PO QPM 05/17/23 05/17/23 05/15/23 History potassium chloride 10 mEq 10 meq PO DAILY PRN Edema 05/17/23 05/17/23 05/16/23 History tablet,extended release tamsulosin 0.4 mg capsule 0.4 mg PO QPM 05/17/23 05/17/23 05/15/23 History Allergies Allergy/AdvReac Type Severity Reaction Status Date / Time No Known Allergies Allergy Verified 04/18/23 11:23 Current Medications Generic Name Dose Route Start Last Admin Trade Name Freq PRN Reason Stop Dose Admin Albuterol/Ipratropium 3 ml 05/17/23 02:00 05/18/23 02:53 Ipratropium-Albuterol 3 Ml Neb INHALATION 3 ml Q6H.RESP MARCOS Administration Albuterol/Ipratropium 3 ml 05/17/23 00:42 05/17/23 03:32 Ipratropium-Albuterol 3 Ml Neb INHALATION 3 ml Q6H PRN Administration SHORTNESS OF BREATH Allopurinol 150 mg 05/18/23 06:00 05/18/23 06:46 Allopurinol 300 Mg Tablet PO 150 mg QAM MARCOS Administration Atorvastatin Calcium 20 mg 05/17/23 18:00 05/17/23 17:46 Atorvastatin 40 Mg Tablet PO 20 mg QPM MARCOS Administration Budesonide 0.5 mg 05/17/23 20:00 05/17/23 19:58 Budesonide 0.5 Mg/2 Ml Neb INHALATION 0.5 mg BID.RESPIRATORY MARCOS Administration Citalopram Hydrobromide 30 mg 05/18/23 09:00 05/18/23 08:02 Citalopram 20 Mg Tablet PO 30 mg DAILY MARCOS Administration Diltiazem HCl 30 mg 05/17/23 09:00 05/18/23 08:01 Diltiazem 30 Mg Tablet PO 30 mg QID MARCOS Administration Diltiazem HCl 100 mg/ Sodium 100 mls @ 0 mls/hr 05/16/23 19:15 05/17/23 09:30 Chloride IV 0 mg/hr .Q0M MARCOS 0 mls/hr Titration Protocol Per Protocol Ceftriaxone Sodium 1,000 mg/ 50 mls @ 100 mls/hr 05/17/23 02:00 05/18/23 07:55 Sodium Chloride IV Infused Q24H MARCOS Infusion Protocol Azithromycin 500 mg/ Sodium 250 mls @ 250 mls/hr 05/17/23 08:30 05/18/23 07:59 Chloride IV 250 mls/hr Q24H MARCOS Administration Protocol Insulin Human Lispro 0 unit 05/17/23 08:00 05/18/23 08:00 Insulin Lispro 100 Unit/1 Ml SUBCUT 6 unit WM&BEDTIME MARCOS Administration Protocol Lorazepam 0.5 mg 05/17/23 03:20 05/17/23 03:35 Lorazepam 2 Mg/Ml Inj 1 Ml IVP 05/19/23 03:19 0.5 mg Q4H PRN Administration ANXIETY Methylprednisolone Sodium Succinate 40 mg 05/18/23 08:00 05/18/23 08:17 Methylprednisolone Sod Succ 40 Mg/Ml Inj IVP Not Given Q12H MARCOS Tamsulosin HCl 0.4 mg 05/17/23 18:00 05/17/23 17:46 Tamsulosin 0.4 Mg Capsule PO 0.4 mg QPM MARCOS Administration Warfarin Sodium 2 mg 05/17/23 14:00 05/17/23 14:24 Warfarin 2 Mg Tablet PO 2 mg TuTh@1400 MARCOS Administration PFSH Acute PFSH: Medical History Acute and chronic respiratory failure with hypoxia Acute exacerbation of chronic obstructive airways disease Atopic dermatitis, unspecified Atrial fibrillation with rapid ventricular response Bradycardia CAP (community acquired pneumonia) CKD (chronic kidney disease) CKD (chronic kidney disease), stage IV CLL (chronic lymphocytic leukemia) Closed fracture of right hip COPD (chronic obstructive pulmonary disease) Delirium Depression Displaced fracture of right femoral neck Dyslipidemia Edema leg Essential (primary) hypertension Frontal lobe dementia GERD (gastroesophageal reflux disease) Gout, unspecified Hyperkalemia Long-term (current) use of anticoagulants, INR goal 2.0-3.0 Lymphocytosis Orthopnea Pain in left finger(s) Pain in right knee Pneumonia Type 2 diabetes mellitus without complications Unspecified atrial fibrillation Viral upper respiratory infection Word finding difficulty Surgical History History of cholecystectomy History of left hip replacement Dr. Bennett - 11/2021 at [place], [place] History of prostate surgery History of total knee replacement Family History Other Cancer Hypertension Lung disease Denies family history of Diabetes CAD (coronary artery disease) Clotting disorder Dementia Hyperlipidemia Psychiatric illness Chronic kidney disease (CKD) Suicide Anesthesia complication Bleeding disorder Stroke Social History Smoking and tobacco/nicotine status: former use of tobacco/nicotine Quit status (tobacco/nicotine): has quit using Year quit tobacco: 2010 - 1PPD x 50 Years Second hand smoke exposure: No Alcohol intake: current Substance/Drug Use: never Lives independently: Yes Household members: spouse Marital status: Current occupational status: retired Do you think of yourself as: Straight/Heterosexual Current gender identity: Male Dietary Habits: Current diet type/program: regular Caffeine: Yes Caffeine intake frequency: coffee Vitals/I&O/Wt Last Vital Signs Temp 97.5 F L 05/17/23 19:00 Pulse 82 05/18/23 06:45 Resp 17 05/18/23 06:45 BP 133/63 05/18/23 06:45 Pulse Ox 95 05/18/23 06:45 O2 Del Method Nasal Cannula 05/18/23 02:54 O2 Flow Rate 2 05/18/23 02:54 05/17/23 05/18/23 05/18/23 22:59 06:59 14:59 Intake Total 240 / 1036 300 / 1336 50 / 50 Output Total 250 / 850 Balance -10 / 186 300 / 486 50 / 50 Weight last 48 hrs Weight 180 lb Physical Exam Const: COMMON NORMALS: no acute distress, patient oriented x3, no limitations, alert and well nourished HENMT: COMMON NORMALS: normocephalic, atraumatic, hearing grossly normal bilaterally and gingiva normal HEAD & SCALP: normocephalic and atraumatic Eye: COMMON NORMALS: Equal, round and reactive pupils present and EOMs intact bilaterally GENERAL EYE: appearance normal, both eyes and all related structures PUPIL: Yes Equal, round and reactive pupils present Neck/C-Spine: COMMON NORMALS: no JVD GENERAL: Yes normal visual inspection CAROTIDS: Yes normal carotid upstroke Chest: COMMONS NORMALS: normal inspection of the chest CHEST: Yes Symmetrical chest wall rise Resp: COMMON NORMALS: normal respiratory effort, No retractions, clear to auscultation bilaterally and percussion normal EFFORT & INSPECTION: Yes symmetric chest movement AUSCULTATION: clear to auscultation bilaterally PERCUSSION: percussion normal Cardio: COMMON NORMALS: no JVD, regular rate, regular rhythm, S1 normal heart sound present, S2 normal heart sound present, No gallops present (Cardio), No clicks present (Cardio), No murmurs present (Cardio) and No rub (Cardio) RATE: regular rate RHYTHM: regular rhythm HEART SOUNDS: S1 normal heart sound present and S2 normal heart sound present GI: COMMON NORMALS: Normal to inspection, nondistended, normoactive bowel sounds present, Soft to palpation and non-tender PALPATION: Yes Soft to palpation : COMMON NORMALS: Yes no CVA tenderness BLADDER/KIDNEY EXAM: Yes no CVA tenderness Back/Pelvis: COMMON NORMALS: no CVA tenderness Extremity: COMMON NORMALS: normal to inspection, full ROM, no joint enlargement, no clubbing, cyanosis or edema, no calf tenderness and no pedal edema (Mild pedal edema bilaterally.) Neuro: COMMON NORMALS: patient oriented x3, moves all extremities, no focal motor deficits and no sensory deficits noted SENSORIUM/ORIENTATION: Yes alert GAIT: Yes Normal gait present Psych: COMMON NORMALS: mental status grossly normal APPEARANCE: Yes grossly normal Skin: COMMON NORMALS: no rashes or lesions noted GENERAL SKIN EXAM: no rashes or lesions noted Data 05/18/23 05:00 05/18/23 05:00 Micro: Microbiology 05/17/23 09:08 Blood Culture - Preliminary Blood SPECIMEN COLLECTED 05/17/23 09:07 Blood Culture - Preliminary Blood SPECIMEN COLLECTED A&P Assessment and plan (1) Paroxysmal atrial fibrillation with RVR: Currently stable in sinus rhythm no evidence of high-grade AV block or significant pauses. Echocardiogram revealed normal LV function with no significant valvular disease. Patient to continue p.o. Cardizem and anticoagulation with Coumadin target INR between 2 and 3. Patient to follow-up with Dr. Ceballos upon discharge in a couple weeks (2) Essential (primary) hypertension: Adequately controlled continue olmesartan. Encouraged to stay on low-salt diet (3) Dyslipidemia: Continue on statin target LDL less than 100. (4) COPD exacerbation: On treatment managed by hospitalist. Plan See above Coding Level of Care Code 78664 Diagnoses Paroxysmal atrial fibrillation with RVR I48.0 Essential (primary) hypertension I10 Dyslipidemia E78.5 COPD exacerbation J44.1
[2023-05-18] MEDS: budesonide 0.5 mg/2 mL Neb INHALATION ×2 (09:06→21:16)
[2023-05-18 12:41] LABS: Glucose Point of Care 258 mg/dL (70-110)
--- NOTE | 2023-05-18 12:59 | PC.PHAR ---
PHA WARFARIN CONSULT - holding one dose today after another increase in INR (3.65) pt is on other medication that can increase INR. Will watch labs and continue to monitor.
[2023-05-18] MEDS: warfarin 4 mg Tablet PO (13:02)
--- NOTE | 2023-05-18 14:52 | XRR_ITS ---
PROCEDURE INFORMATION: Exam: XR Chest Exam date and time: 05/18/2023 4:10 PM Age: 83 years old Clinical indication: Shortness of breath TECHNIQUE: Imaging protocol: Radiologic exam of the chest. Views: 1 view. COMPARISON: CR (CHEST, ) 05/16/2023 6:48 PM FINDINGS: Tubes, catheters and devices: Overlying monitor leads. Lungs: Hyperinflation or emphysematous change, as noted with prior exam. Minimal increased interstitial markings right lung base and consider minimal infiltrate. No consolidation. Pleural spaces: No pleural effusion or pneumothorax. Heart/Mediastinum: Unremarkable. No cardiomegaly. Bones/joints: Postsurgical hardware lower cervical spine. XR/XR chest 1V portable [id number] IMPRESSION: Emphysematous change. Minimal increased interstitial markings right lung base with today's exam and consider minimal infiltrate. No consolidation.
--- NOTE | 2023-05-18 15:19 | PM.PN ---
Subjective Subjective: Patient was examined this morning, he is enjoying breakfast, denies any chest pain, no palpitations, we discussed his atrial fibrillation, we will continue to monitor, his INR is elevated, will monitor, continues to have a productive cough Vitals/I&O/Wt Last Vital Signs Temp 97.5 F L 05/17/23 19:00 Pulse 89 05/18/23 14:00 Resp 20 H 05/18/23 13:15 BP 140/78 05/18/23 13:00 Pulse Ox 95 05/18/23 13:15 O2 Del Method Nasal Cannula 05/18/23 13:15 O2 Flow Rate 2 05/18/23 13:15 05/18/23 05/18/23 05/18/23 06:59 14:59 22:59 Intake Total 300 / 1336 900 / 900 Balance 300 / 486 900 / 900 Weight last 48 hrs Weight 81.647 kg Physical Exam Const: COMMON NORMALS: no acute distress and patient oriented x3 Resp: COMMON NORMALS: normal respiratory effort, No retractions, No use of accessory muscles and clear to auscultation bilaterally AUSCULTATION: clear to auscultation bilaterally Cardio: COMMON NORMALS: regular rate, regular rhythm, S1 normal heart sound present and S2 normal heart sound present RATE: regular rate RHYTHM: regular rhythm HEART SOUNDS: S1 normal heart sound present and S2 normal heart sound present GI: COMMON NORMALS: Normal to inspection, nondistended, normoactive bowel sounds present and non-tender Extremity: COMMON NORMALS: no pedal edema Neuro: COMMON NORMALS: patient oriented x3 Psych: COMMON NORMALS: mental status grossly normal Data 05/18/23 05:00 05/18/23 05:00 Micro: Microbiology 05/17/23 09:08 Blood Culture - Preliminary Blood NEGATIVE TO DATE 05/17/23 09:07 Blood Culture - Preliminary Blood NEGATIVE TO DATE 05/17/23 21:15 Gram Stain - Final Sputum - Expectorated Sputum A&P Assessment and plan (1) Paroxysmal atrial fibrillation with RVR: Continue. Cardizem 30 every 6 hours, ? Continue Coumadin, ? Monitor INR CONCLUSIONS ?Technically limited quality echocardiogram. ?LV systolic function is normal with EF of 55 to 60%. ?Aortic valve is thickened. ?Trace tricuspid regurgitation ?Trace pulmonic regurgitation ?IVC is dilated. ?Compared to prior echocardiogram from 01/29/2022, no significant ?changes are seen (2) COPD exacerbation: Severe exacerbation of COPD, with dyspnea, purulent sputum, diminished air entry, rhonchi, wheezing. Hypoxia. Discussed with him treatment with ceftriaxone, Solu-Medrol. DuoNebs. Collect sputum culture. Respiratory viral panel. Flutter valve. Oxygen support as needed. ? Continue Rocephin, azithromycin (3) Chronic lymphocytic leukemia: With chronically elevated WBC. (4) Physical deconditioning: He is significantly, dyspnea on exertion. Suspect combination of COPD dissipation, A-fib with RVR. Has been having more difficulties with mobility. Will obtain PT assessment. Plan DM2: Requesting Accu-Cheks. Sliding scale insulin. Consistent carb diet. CKD: Creatinine reviewed, slightly worsened recently at 1.7. BUN noted 30. Hold olmesartan. Noted mild hyperkalemia. Hold potassium supplement. Reassess renal function. GERD: PPI Multiple other medical problems. Leukocytosis, 32,000 neutrophilic lymphocytic subcortical related to CLL some component related to steroids, continue antibiotics, monitor heart rates we will move to CSU, INR elevated at 3.24, Coumadin will be held, monitor heart rate, comes in and out of atrial fibrillation, consult cardiology as there is concerns for possible secondary AV block Attestations Medical Necessity Statement*: Patient requires hospitalization for atrial fibrillation, leukocytosis, elevated INR and concerns for secondary AV block, consult cardiology Diagnoses Paroxysmal atrial fibrillation with RVR I48.0 COPD exacerbation J44.1 Chronic lymphocytic leukemia C91.10 Physical deconditioning R53.81
[2023-05-18 15:45] LABS: Anion Gap 15.7 (5-19); Blood Urea Nitrogen 62 mg/dL (8-23); Calcium 9.1 mg/dL (8.5-10.5); Carbon Dioxide 25 mmol/L (22-29); Chloride 99 mmol/L (98-107); Glucose 263 mg/dL (65-115); NT Pro B Type Natriuretic Pept 1095 pg/mL (0-450); Osmolality Calculated 307 mOsm/kg (285-295); Potassium 4.7 mmol/L (3.5-5.1); Sodium 135 mmol/L (136-145)
[2023-05-18 15:46] LABS: Creatinine Clr Calc Pharmacy 34.8076
[2023-05-18 17:10] LABS: Glucose Point of Care 237 mg/dL (70-110)
[2023-05-18] MEDS: tamsulosin 0.4 mg Capsule PO (17:29)
[2023-05-18] MEDS: atorvastatin 40 mg Tablet 20 MG PO (17:30)
--- NOTE | 2023-05-18 18:12 | PC.NURSE ---
Patient and belongings taken to room 107-1, belongings with patient. Bedside report given to NIALL Felton. Patient's called and notified of transfer.
[2023-05-18 21:17] LABS: Glucose Point of Care 223 mg/dL (70-110)
[2023-05-19] VITALS (63 sets, daily range): BP systolic 112–154; BP diastolic 56–73; PULSE 60–109; RESP 15–28; TEMP 36.5–36.8; O2SAT 90–97
[2023-05-19] MEDS: cefTRIAXone 1,000 MG in sodium chloride 0.9% (plus) 50 ML 100 MG IV (01:12)
[2023-05-19] MEDS: ipratropium-albuterol 3 mL Neb INHALATION ×4 (02:04→20:38)
[2023-05-19 05:13] LABS: Basophils # 0.1 10^3/uL (0.0-0.1); Basophils % 0.2 %; Hematocrit 38.9 % (37-53); Mean Corpuscular HGB Conc 32.6 g/dL (30-55); Mean Corpuscular Hemoglobin 30.2 pg (27-33); Mean Corpuscular Volume 92.4 fl (82-101); Mean Platelet Volume 9.6 fL (7.4-10.4); Monocytes # 0.7 10^3/uL (0.2-0.9); Monocytes % 2.2 %; Neutrophils # 25.21 10^3/uL (1.8-7.7); Neutrophils % 75.3 %; Nucleated Red Blood Cells % 0 %; Platelet Count 266 10^3/cmm (157-399); Red Blood Count 4.21 10^6/uL (3.85-5.65); Red Cell Distribution Width 13.7 % (12.1-15.1)
[2023-05-19 05:28] LABS: INR 3.28 (0.8-1.2)
[2023-05-19 05:30] LABS: C Reactive Protein 51.9 mg/L (0.0-4.9)
[2023-05-19 05:31] LABS: Anion Gap 17.6 (5-19); Blood Urea Nitrogen 61 mg/dL (8-23); Calcium 8.6 mg/dL (8.5-10.5); Carbon Dioxide 22 mmol/L (22-29); Chloride 102 mmol/L (98-107); Glucose 183 mg/dL (65-115); Osmolality Calculated 306 mOsm/kg (285-295); Potassium 4.6 mmol/L (3.5-5.1); Sodium 137 mmol/L (136-145)
[2023-05-19 05:33] LABS: Creatinine Clr Calc Pharmacy 34.8076
[2023-05-19 05:41] LABS: NT Pro B Type Natriuretic Pept 841 pg/mL (0-450); Procalcitonin 0.21 ng/mL (0-0.5)
[2023-05-19] MEDS: allopurinol 300 mg Tablet 150 MG PO (06:23)
[2023-05-19 06:29] LABS: Glucose Point of Care 233 mg/dL (70-110)
[2023-05-19 06:34] LABS: Slide Review Slide Review Perform; White Blood Count 33.48 10^3/uL (3.29-11.43)
[2023-05-19] MEDS: budesonide 0.5 mg/2 mL Neb INHALATION ×2 (07:20→20:38)
[2023-05-19] MEDS: azithromycin 500 MG in sodium chloride 0.9% 250 ML 250 MG IV (07:39)
[2023-05-19] MEDS: insulin lispro 100 unit/1 mL SUBCUT ×4 (07:43→21:32)
[2023-05-19] MEDS: methylPREDNISolone sod succ 40 mg/mL INJ IVP ×2 (07:43→21:00)
[2023-05-19] MEDS: citalopram 20 mg Tablet 30 MG PO (09:19)
[2023-05-19] MEDS: dilTIAZem 30 mg Tablet PO ×4 (09:19→21:03)
[2023-05-19 11:01] LABS: Glucose Point of Care 277 mg/dL (70-110)
--- NOTE | 2023-05-19 11:02 | PC.PHAR ---
INR 3.28, patient scheduled for 4mg dose today. Will give 2mg instead and reevaluate tomorrow. Thank you, Geovanna Ellis [facility]
--- NOTE | 2023-05-19 12:40 | P.PN_ITS ---
Subjective Subjective: Patient was seen this morning, he continues to complain of shortness of breath and had a cough, no chest pain, no palpitations, Vitals/I&O/Wt Last Vital Signs Temp 98.2 F 05/19/23 08:00 Pulse 69 05/19/23 08:00 Resp 19 H 05/19/23 08:00 BP 132/61 05/19/23 08:00 Pulse Ox 96 05/19/23 08:00 O2 Del Method Nasal Cannula 05/19/23 08:00 O2 Flow Rate 3 05/19/23 08:00 05/18/23 05/19/23 05/19/23 22:59 06:59 14:59 Intake Total 240 / 1140 450 / 1590 368 / 368 Output Total 375 / 375 300 / 675 Balance -135 / 765 150 / 915 368 / 368 Physical Exam Const: COMMON NORMALS: no acute distress and patient oriented x3 Resp: COMMON NORMALS: normal respiratory effort, No retractions and No use of accessory muscles AUSCULTATION: wheezes Cardio: COMMON NORMALS: regular rate, regular rhythm, S1 normal heart sound present and S2 normal heart sound present RATE: regular rate RHYTHM: regular rhythm HEART SOUNDS: S1 normal heart sound present and S2 normal heart sound present GI: COMMON NORMALS: Normal to inspection, nondistended, normoactive bowel sounds present and non-tender Extremity: COMMON NORMALS: no pedal edema Neuro: COMMON NORMALS: patient oriented x3 Psych: COMMON NORMALS: mental status grossly normal Data 05/19/23 04:45 05/19/23 04:45 Micro: Microbiology 05/17/23 09:08 Blood Culture - Preliminary Blood NEGATIVE TO DATE 05/17/23 09:07 Blood Culture - Preliminary Blood NEGATIVE TO DATE 05/17/23 21:15 Gram Stain - Final Sputum - Expectorated Sputum A&P Assessment and plan (1) Paroxysmal atrial fibrillation with RVR: Continue. Cardizem 30 every 6 hours, ? Continue Coumadin, ? Monitor INR CONCLUSIONS ?Technically limited quality echocardiogram. ?LV systolic function is normal with EF of 55 to 60%. ?Aortic valve is thickened. ?Trace tricuspid regurgitation ?Trace pulmonic regurgitation ?IVC is dilated. ?Compared to prior echocardiogram from 01/29/2022, no significant ?changes are seen (2) COPD exacerbation: Severe exacerbation of COPD, with dyspnea, purulent sputum, diminished air entry, rhonchi, wheezing. Hypoxia. Discussed with him treatment with ceftriaxone, Solu-Medrol. DuoNebs. Collect sputum culture. Respiratory viral panel. Flutter valve. Oxygen support as needed. ? Continue Rocephin, azithromycin (3) Chronic lymphocytic leukemia: With chronically elevated WBC. (4) Physical deconditioning: He is significantly, dyspnea on exertion. Suspect combination of COPD dissipation, A-fib with RVR. Has been having more difficulties with mobility. Will obtain PT assessment. Plan DM2: Requesting Accu-Cheks. Sliding scale insulin. Consistent carb diet. CKD: Creatinine reviewed, slightly worsened recently at 1.7. BUN noted 30. Hold olmesartan. Noted mild hyperkalemia. Hold potassium supplement. Reassess renal function. GERD: PPI Multiple other medical problems. Leukocytosis, 32,000 neutrophilic lymphocytic subcortical related to CLL some component related to steroids, continue antibiotics, monitor heart rates Attestations Medical Necessity Statement*: Patient requires hospitalization for COPD exacerbation with persistent wheezing requiring continued antibiotic therapy, does have leukocytosis likely secondary to CLL, will consider Lasix based on clinical progress creatinine 1.8 Coding Level of Care Code 87157 Moderate MDM includes number and complexity of problems actively addressed during encounter, amount and/or complexity of data reviewed/ordered and described risk of complication, morbidity or mortality of management as doc umented Diagnoses Paroxysmal atrial fibrillation with RVR I48.0 COPD exacerbation J44.1 Chronic lymphocytic leukemia C91.10 Physical deconditioning R53.81
[2023-05-19] MEDS: warfarin 2 mg Tablet PO (13:18)
[2023-05-19] MEDS: atorvastatin 40 mg Tablet 20 MG PO (16:57)
[2023-05-19] MEDS: tamsulosin 0.4 mg Capsule PO (16:59)
[2023-05-19 17:11] LABS: Glucose Point of Care 277 mg/dL (70-110)
[2023-05-19 21:13] LABS: Glucose Point of Care 229 mg/dL (70-110)
[2023-05-20] VITALS (14 sets, daily range): BP systolic 132–169; BP diastolic 63–99; PULSE 57–108; RESP 17–26; TEMP 36.3–36.6; O2SAT 91–97
[2023-05-20] MEDS: ipratropium-albuterol 3 mL Neb INHALATION ×3 (02:15→20:12)
[2023-05-20] MEDS: cefTRIAXone 1,000 MG in sodium chloride 0.9% (plus) 50 ML 100 MG IV (02:45)
[2023-05-20 04:46] LABS: Basophils % 0.1 %; Hematocrit 36.5 % (37-53); Lymphocytes # 4.9 10^3/uL (0.8-4.8); Lymphocytes % 19.4 %; Mean Corpuscular HGB Conc 32.1 g/dL (30-55); Mean Corpuscular Hemoglobin 29.6 pg (27-33); Mean Corpuscular Volume 92.4 fl (82-101); Mean Platelet Volume 9.9 fL (7.4-10.4); Monocytes # 0.6 10^3/uL (0.2-0.9); Monocytes % 2.4 %; Neutrophils % 77.3 %; Nucleated Red Blood Cells % 0 %; Platelet Count 264 10^3/cmm (157-399); Red Blood Count 3.95 10^6/uL (3.85-5.65); Red Cell Distribution Width 13.8 % (12.1-15.1); White Blood Count 25.35 10^3/uL (3.29-11.43)
[2023-05-20 05:01] LABS: INR 3.98 (0.8-1.2)
[2023-05-20 05:10] LABS: C Reactive Protein 24.9 mg/L (0.0-4.9)
[2023-05-20 05:19] LABS: NT Pro B Type Natriuretic Pept 1359 pg/mL (0-450); Procalcitonin 0.15 ng/mL (0-0.5)
[2023-05-20 05:23] LABS: Alanine Aminotransferase 11 U/L (0-41); Albumin Level 3.1 g/dL (3.5-5.2); Alkaline Phosphatase 101 U/L (40-130); Anion Gap 13.9 (5-19); Aspartate Amino Transferase 7 U/L (0-40); Blood Urea Nitrogen 62 mg/dL (8-23); Calcium 8.5 mg/dL (8.5-10.5); Carbon Dioxide 25 mmol/L (22-29); Chloride 104 mmol/L (98-107); Globulin 2.1 g/dL (1.3-4.6); Glucose 256 mg/dL (65-115); Osmolality Calculated 312 mOsm/kg (285-295); Potassium 4.9 mmol/L (3.5-5.1); Sodium 138 mmol/L (136-145); Total Bilirubin 0.2 mg/dL (0.15-1.2); Total Protein 5.2 g/dL (6.6-8.7)
[2023-05-20 06:29] LABS: Glucose Point of Care 211 mg/dL (70-110)
[2023-05-20] MEDS: allopurinol 300 mg Tablet 150 MG PO (06:30)
[2023-05-20] MEDS: budesonide 0.5 mg/2 mL Neb INHALATION ×2 (08:07→20:12)
[2023-05-20] MEDS: insulin lispro 100 unit/1 mL SUBCUT ×4 (09:41→22:03)
[2023-05-20] MEDS: dilTIAZem 30 mg Tablet PO ×2 (09:42→12:20)
[2023-05-20] MEDS: citalopram 20 mg Tablet 30 MG PO (09:42)
[2023-05-20] MEDS: methylPREDNISolone sod succ 40 mg/mL INJ IVP ×2 (09:42→21:31)
[2023-05-20] MEDS: azithromycin 500 MG in sodium chloride 0.9% 250 ML 250 MG IV (09:43)
--- NOTE | 2023-05-20 10:08 | XRR_ITS ---
PROCEDURE INFORMATION: Exam: XR Chest Exam date and time: 05/20/2023 12:24 PM Age: 83 years old Clinical indication: Shortness of breath and wheezing; Patient HX: SOB; Wheezing; Low o2 sat; Ex smoker; HX copd, afib TECHNIQUE: Imaging protocol: Radiologic exam of the chest. Views: 1 view. COMPARISON: CR (CHEST, ) 05/18/2023 4:10 PM FINDINGS: Lungs: Mild pulmonary hyperinflation seen previously. Unchanged appearance of possible cavity right upper lung zone in comparison to chest x-ray 05/18/2023. This was possibly present on chest x-ray from 05/16/2023. This was clearly not present on chest radiograph from 04/18/[address] chest[address] Minor subsegmental atelectasis in the left base. Pleural spaces: Unremarkable. No pleural effusion. No pneumothorax. Heart/Mediastinum: Unremarkable. No cardiomegaly. Bones/joints: Unremarkable. XR/XR chest 1V portable [id number] IMPRESSION: Minor subsegmental atelectasis in the left base. Underlying emphysema. Possible 3 cm cavity right upper lung zone which was present on chest radiograph from 2 days ago but not older imaging tests. Would direct attention to this region follow-up radiographs chain two-view chest when patient can tolerate it.
--- NOTE | 2023-05-20 10:09 | PC.NURSE ---
Provider verbally gave an order for a chest x-ray and for lasix 20mg IVP once. Orders entered.
[2023-05-20] MEDS: FUROsemide 10 mg/mL SDV 2mL 20 MG IVP (11:13)
[2023-05-20 11:25] LABS: Glucose Point of Care 314 mg/dL (70-110)
--- NOTE | 2023-05-20 12:33 | P.DS_ITS ---
Discharge Providers Date of Admission: 05/16/23 23:09 Date of Discharge: May 20, 2023 Attending Provider at Admission: Aamir Silverio Attending Provider at Discharge: Je Rodriguez MD Primary Care Provider: Autumn Pierre DO Diagnoses at Discharge Discharge Diagnosis (1) Paroxysmal atrial fibrillation with RVR: Status: Acute (2) COPD exacerbation: Status: Acute (3) Chronic lymphocytic leukemia: Status: Acute (4) Physical deconditioning: Status: Acute Reason for Visit Reason for Visit: Resp Distress Hospital Course Hospital Course Very pleasant, slightly hard of hearing gentleman presented to the hospital due to dyspnea, copious phlegm production, easy fatigability, tachycardia, in ER noted to be in atrial fibrillation with RVR, heart rates into the 150s, received Cardizem push, started on Cardizem drip.? He has been wheezing, coughing up quite a bit of phlegm.? Chest x-ray without pneumonia.? Endorses history of COPD.? Has been using his inhaler but without improvement. On review of systems reports that he had an episode of vomiting this morning., Patient was admitted to [facility] for paroxysmal atrial fibrillation, managed with Cardizem, due to persistent tachycardia with exertion, Cardizem was increased to 240 mg once daily, will be discharged with close follow-up with cardiology as outpatient. Patient had elevated INR during his hospitalization, likely second antibiotics, Coumadin has been held for the last 48 hours, continue to hold today, hold tomorrow, recheck INR tomorrow, call Dr. Paz office with the result tomorrow for further instructions. INR at discharge 4.0 For his COPD exacerbation, with productive cough, managed with steroids, antibiotics, will be discharged on a prednisone taper, doxycycline, with a close follow-up with primary care provider as outpatient For his Pseudomonas pneumonia, discharged on 7 days of p.o. Levaquin Patient's respiratory cultures showing Achromobacter, discharged on Levaquin as above For patient's chest CT Emphysema.? Development of somewhat irregularly walled cavity in the right upper lobe since prior CT from 01/02/2023.? This may represent sequela of interval infection or progression of emphysematous change. No infiltrate. ? Had extensive discussion about the walled cavity in the right upper lobe, could be related to Pseudomonas pneumonia, have discharged on 7 days of Levaquin ? No significant TB risk factors, no significant TB symptoms, nonetheless I have ordered a quant to Farren gold ? Have ordered fungal studies, please follow with pulmonary as outpatient, for consideration of PET scanning Chronic leukocytosis, component related to Pseudomonas pneumonia, some component related to patient's CLL Physical Exam Const: COMMON NORMALS: no acute distress and patient oriented x3 Resp: COMMON NORMALS: normal respiratory effort, No retractions, No use of accessory muscles and clear to auscultation bilaterally AUSCULTATION: clear to auscultation bilaterally Cardio: COMMON NORMALS: regular rate, regular rhythm, S1 normal heart sound present and S2 normal heart sound present RATE: regular rate RHYTHM: regular rhythm HEART SOUNDS: S1 normal heart sound present and S2 normal heart sound present GI: COMMON NORMALS: Normal to inspection, nondistended, normoactive bowel sounds present and non-tender Extremity: COMMON NORMALS: no pedal edema Neuro: COMMON NORMALS: patient oriented x3 Psych: COMMON NORMALS: mental status grossly normal Discharge Data Studies Completed and Pending Completed Studies During Hospitalization Category Date Time Status XR chest 1V portable [id number] Routine Exams 05/20/23 10:08 Completed XR chest 1V portable [id number] Stat Exams 05/16/23 18:46 Completed XR chest 1V portable [id number] Stat Exams 05/18/23 14:52 Completed CV. echo complete* [id number] Routine Ultrasound 05/17/23 00:42 Completed Pending at discharge Category Date Time Status Blood Culture Stat Lab 05/17/23 09:08 Results Complete Blood Count w/Auto AM LABS Lab 05/21/23 04:00 Ordered Complete Blood Count w/Auto AM LABS Lab 05/22/23 04:00 Ordered Comprehensive Metabolic Panel AM LABS Lab 05/21/23 04:00 Ordered Comprehensive Metabolic Panel AM LABS Lab 05/22/23 04:00 Ordered Sputum Culture and Gram Stain Routine Lab 05/17/23 21:15 Results Radiology Impressions Chest X-Ray 05/20/23 10:08 IMPRESSION: Minor subsegmental atelectasis in the left base. Underlying emphysema. Possible 3 cm cavity right upper lung zone which was present on chest radiograph from 2 days ago but not older imaging tests. Would direct attention to this region follow-up radiographs chain two-view chest when patient can tolerate it. ADDENDUM: 05/20/23 0747 The final sentence of impression should read: Would direct attention to this region on follow-up radiograph and obtain two-view chest when patient can tolerate it. Laboratory Results WBC 25.35 10^3/uL (3.29-11.43) H 05/20/23 03:48 RBC 3.95 10^6/uL (3.85-5.65) 05/20/23 03:48 Hgb 11.70 g/dL (11.27-16.99) 05/20/23 03:48 Hct 36.5 % (37-53) L 05/20/23 03:48 MCV 92.4 fl (82-101) 05/20/23 03:48 MCH 29.6 pg (27-33) 05/20/23 03:48 MCHC 32.1 g/dL (30-55) 05/20/23 03:48 RDW 13.8 % (12.1-15.1) 05/20/23 03:48 Plt Count 264 10^3/cmm (157-399) 05/20/23 03:48 MPV 9.9 fL (7.4-10.4) 05/20/23 03:48 Neut % (Auto) 77.3 % 05/20/23 03:48 Lymph % (Auto) 19.4 % 05/20/23 03:48 [place] % (Auto) 2.4 % 05/20/23 03:48 Eos % (Auto) 0.0 % 05/20/23 03:48 Baso % (Auto) 0.1 % 05/20/23 03:48 Neut # (Auto) 19.60 10^3/uL (1.8-7.7) H 05/20/23 03:48 Lymph # (Auto) 4.9 10^3/uL (0.8-4.8) H 05/20/23 03:48 [place] # (Auto) 0.6 10^3/uL (0.2-0.9) 05/20/23 03:48 Eos # (Auto) 0.0 10^3/uL (0.0-0.8) 05/20/23 03:48 Baso # (Auto) 0.0 10^3/uL (0.0-0.1) 05/20/23 03:48 Nucleated RBC % (auto) 0 % 05/20/23 03:48 Nucleated RBCs # 0.0 /100WBC 05/20/23 03:48 PT 40.40 SECONDS (12.1-14.9) H 05/20/23 03:48 INR 3.98 (0.8-1.2) H 05/20/23 03:48 Specimen Type Arterial 05/17/23 05:15 Sample Site Radial, left 05/17/23 05:15 ABG pH 7.43 (7.35-7.45) 05/17/23 05:15 ABG pCO2 41.6 mmHg (35-45) 05/17/23 05:15 ABG pO2 73.8 mmHg (80.0-100.0) L 05/17/23 05:15 ABG HCO3 27.5 mmol/L (22-26) H 05/17/23 05:15 ABG O2 Saturation 96.1 05/17/23 05:15 ABG Base Excess 2.8 mmol/L (-2.0-2.0) H 05/17/23 05:15 Hema Test Pos 05/17/23 05:15 A-a O2 Gradient 3.2 mmHg (5-10) L 05/17/23 05:15 Hematocrit 47.9 % (42-52) 05/17/23 05:15 Hgb O2 Saturation 94.4 % (95-100) L 05/17/23 05:15 Carboxyhemoglobin 1.3 %THgb (0.4-20.1) 05/17/23 05:15 Methemoglobin 0.5 % (0.4-1.5) 05/17/23 05:15 Total Hemoglobin 15.6 g/dL (14-18) 05/17/23 05:15 Sodium 135.0 mmol/L (131-143) 05/17/23 05:15 Potassium 5.0 mmol/L (3.5-5.0) 05/17/23 05:15 Glucose 148.0 mg/dL (70-115) H 05/17/23 05:15 Ionized Calcium 1.2 mmol/L (1.1-1.4) 05/17/23 05:15 O2 Delivery Device Nc 05/17/23 05:15 O2 Liters/Min 2.5 % 05/17/23 05:15 Salesperson Driver ID Mati 05/17/23 05:15 Sodium 138 mmol/L (136-145) 05/20/23 03:48 Potassium 4.9 mmol/L (3.5-5.1) 05/20/23 03:48 Chloride 104 mmol/L (98-107) 05/20/23 03:48 Carbon Dioxide 25 mmol/L (22-29) 05/20/23 03:48 Anion Gap 13.9 (5-19) 05/20/23 03:48 BUN 62 mg/dL (8-23) H 05/20/23 03:48 Creatinine 1.6 mg/dL (0.7-1.2) H 05/20/23 03:48 GFR Calculation Not Reportable 05/20/23 03:48 Glucose 256 mg/dL (65-115) H 05/20/23 03:48 POC Glucose 314 mg/dL (70-110) H 05/20/23 11:14 Calculated Osmolality 312 mOsm/kg (285-295) H 05/20/23 03:48 Calcium 8.5 mg/dL (8.5-10.5) 05/20/23 03:48 Magnesium 2.2 mg/dL (1.7-2.3) 05/17/23 04:00 Total Bilirubin 0.2 mg/dL (0.15-1.2) 05/20/23 03:48 AST 7 U/L (0-40) 05/20/23 03:48 ALT 11 U/L (0-41) 05/20/23 03:48 Alkaline Phosphatase 101 U/L (40-130) 05/20/23 03:48 Troponin T Baseline 33 ng/L (0-15) H 05/16/23 19:02 Troponin T 120 Minute 33.45 ng/L (0-15) H 05/16/23 21:17 Delta Troponin T 0.45 ABS# (0-10) 05/16/23 21:17 Troponin T Hi Sens 6Hr 33.03 ng/L (0-15) H 05/17/23 00:28 Troponin T Hi Sens 6Hr Delta 0.03 ng/L (0-12) 05/17/23 00:28 C-Reactive Protein 24.9 mg/L (0.0-4.9) H 05/20/23 03:48 NT-Pro-B Natriuret Pep 1359 pg/mL (0-450) H 05/20/23 03:48 Total Protein 5.2 g/dL (6.6-8.7) L 05/20/23 03:48 Albumin 3.1 g/dL (3.5-5.2) L 05/20/23 03:48 Globulin 2.1 g/dL (1.3-4.6) 05/20/23 03:48 Procalcitonin 0.15 ng/mL (0-0.5) 05/20/23 03:48 TSH 1.95 uIU/mL (0.27-4.20) 05/16/23 19:02 Urine Color Yellow (Yellow) 05/17/23 11:20 Urine Appearance Clear (CLEAR) 05/17/23 11:20 Urine pH 5 (5-7) 05/17/23 11:20 Ur Specific [place] 1.010 (1.005-1.030) 05/17/23 11:20 Urine Protein Trace (Negative) 05/17/23 11:20 Urine Glucose (UA) Norm (Normal) 05/17/23 11:20 Urine Ketones 1+ (Negative) H 05/17/23 11:20 Urine Blood 2+ (Negative) H 05/17/23 11:20 Urine Nitrate Negative (Negative) 05/17/23 11:20 Urine Bilirubin Neg (Negative) 05/17/23 11:20 Urine Urobilinogen Norm mg/dL (Negative) 05/17/23 11:20 Ur Leukocyte Esterase Negative (Negative) 05/17/23 11:20 Urine RBC 0-4 /hpf (0-2) H 05/17/23 11:20 Urine WBC 0-4 /hpf (0-5) H 05/17/23 11:20 Ur Squamous Epith Cells 0-4 /hpf (0-5) H 05/17/23 11:20 Amorphous Sediment Not Reportable 05/17/23 11:20 Urine Bacteria None /hpf (NONE) 05/17/23 11:20 Hyaline Casts 5-10 /lpf H 05/17/23 11:20 Urine Mucus 1+ /hpf 05/17/23 11:20 Nasal Influ A H1 2008 PCR Not detected (NOT DETECT) 05/17/23 01:10 Adenovirus (PCR) Not detected (NOT DETECT) 05/17/23 01:10 C. pneumoniae DNA (PCR) Not detected (NOT DETECT) 05/17/23 01:10 Coronavirus 229E (PCR) Not detected (NOT DETECT) 05/17/23 01:10 Human Metapneumovir PCR Not detected (NOT DETECT) 05/17/23 01:10 Influenza A (H1) PCR Not detected (NOT DETECT) 05/17/23 01:10 Influenza A (H3) PCR Not detected (NOT DETECT) 05/17/23 01:10 Influenza Type A (PCR) Not detected (NOT DETECT) 05/17/23 01:10 Influenza Type B (PCR) Not detected (NOT DETECT) 05/17/23 01:10 M. pneumoniae (PCR) Not detected (NOT DETECT) 05/17/23 01:10 Parainfluenza 1 (PCR) Not detected (NOT DETECT) 05/17/23 01:10 Parainfluenza 2 (PCR) Not detected (NOT DETECT) 05/17/23 01:10 Parainfluenza 3 (PCR) Not detected (NOT DETECT) 05/17/23 01:10 Parainfluenza 4 (PCR) Not detected (NOT DETECT) 05/17/23 01:10 RSV Type A (PCR) Not detected (NOT DETECT) 05/17/23 01:10 RSV Type B (PCR) Not detected (NOT DETECT) 05/17/23 01:10 Entero/Rhino (PCR) Not detected (NOT DETECT) 05/17/23 01:10 SARS-CoV-2 (PCR) Not detected (NOT DETECT) 05/17/23 01:10 Vitals Last Vital Signs Temp 97.8 F 05/20/23 07:54 Pulse 75 05/20/23 08:10 Resp 18 05/20/23 08:10 BP 159/99 05/20/23 07:54 Pulse Ox 95 05/20/23 08:10 O2 Del Method Nasal Cannula 05/20/23 08:10 O2 Flow Rate 3 05/20/23 08:10 Discharge Plan Discharge Patient Disposition: Home Condition: Stable Prescriptions: New prednisone 10 mg tablet 10 mg PO DIRECTED Qty: 53 0RF Rx Instructions: 4 tabs for 5 days, 3 tabs for 5 days, 2 tabs for 5 days, 1 tab for 5 days, half a tab for 5 days diltiazem HCl 240 mg capsule,extended release 24 hr 240 mg PO DAILY 30 Days Qty: 30 0RF levofloxacin 750 mg tablet 750 mg PO DAILY 7 Days Qty: 7 0RF Continued PreserVision AREDS-2 250-90-40-1 mg capsule 1 tab PO DAILY Yupelri 175 mcg/3 mL solution for nebulization 175 mcg inhalation DAILY Qty: 90 6RF fluticasone propion-salmeterol [Advair Diskus] 500-50 mcg/dose blister with device 1 inh inhalation BID Qty: 60 6RF Rx Instructions: 340 B Incruse Ellipta 62.5 mcg/actuation blister with device 1 inh inhalation DAILY Qty: 30 6RF citalopram 10 mg tablet See Rx Instructions .ROUTE .COMPLEX Qty: 90 0RF Dose Instruction: TAKE 1 TABLET BY MOUTH ONCE DAILY ( TAKE WITH 20 MG) Rx Instructions: TAKE 1 TABLET BY MOUTH ONCE DAILY (TAKE WITH 20 MG) albuterol sulfate 90 mcg/actuation HFA aerosol inhaler 2 puff inhalation Q4H PRN (Reason: Shortness Of Breath) Qty: 8.5 6RF sennosides-docusate sodium [Senna-S] 8.6-50 mg tablet 1 tab-cap PO BID Qty: 60 0RF allopurinol 300 mg tablet 150 mg PO QAM olmesartan 5 mg tablet 5 mg PO QAM calcium carbonate-vitamin D3 600 mg-5 mcg (200 unit) Tablet 1 tab PO QAM atorvastatin 20 mg tablet 20 mg PO QPM potassium chloride 10 mEq tablet extended release 10 meq PO DAILY PRN (Reason: Edema) tamsulosin 0.4 mg capsule 0.4 mg PO QPM furosemide 20 mg tablet 10 mg PO QAM Tradjenta 5 mg tablet 5 mg PO QPM citalopram 20 mg tablet See Rx Instructions .ROUTE .COMPLEX Qty: 90 1RF Dose Instruction: TAKE 1 TABLET BY MOUTH ONCE DAILY IN THE MORNING Rx Instructions: TAKE 1 TABLET BY MOUTH ONCE DAILY IN THE MORNING. TAKE WITH 10 MG) Held warfarin 2 mg tablet 2 mg PO DIRECTED Qty: 90 3RF Hold Instructions: Resume on 05/22/23. Protocol: Dose Management Condition: Sunday Dose/Route: 4 mg Instruction: 1 x 4 mg tablet Condition: Sunday Dose/Route: 4 mg Instruction: 1 x 4 mg tablet Condition: Sunday Dose/Route: 2 mg Instruction: 1 x 2 mg tablet Condition: Sunday Dose/Route: 4 mg Instruction: 1 x 4 mg tablet Condition: Dose/Route: 2 mg Instruction: 1 x 2 mg tablet Condition: Sunday Dose/Route: 4 mg Instruction: 1 x 4 mg tablet Condition: Sunday Dose/Route: 4 mg Instruction: 1 x 4 mg tablet Protocol Text: Adjustment Start Date: Sunday05/14/23 INR Value: 3.0 INR Date: 05/14/23 Recheck Date: 05/21/23 Rx Instructions: take 1 tab on , , and Sunday warfarin 4 mg tablet 4 mg PO DIRECTED Qty: 90 3RF Hold Instructions: Resume on 05/22/23. Protocol: Dose Management Condition: Sunday Dose/Route: 4 mg Instruction: 1 x 4 mg tablet Condition: Sunday Dose/Route: 4 mg Instruction: 1 x 4 mg tablet Condition: Sunday Dose/Route: 2 mg Instruction: 1 x 2 mg tablet Condition: Sunday Dose/Route: 4 mg Instruction: 1 x 4 mg tablet Condition: Dose/Route: 2 mg Instruction: 1 x 2 mg tablet Condition: Sunday Dose/Route: 4 mg Instruction: 1 x 4 mg tablet Condition: Sunday Dose/Route: 4 mg Instruction: 1 x 4 mg tablet Protocol Text: Adjustment Start Date: Sunday05/14/23 INR Value: 3.0 INR Date: 05/14/23 Recheck Date: 05/21/23 Rx Instructions: take 1 tab on Sun,Sun,Sun,Sun amiodarone 200 mg tablet 100 mg PO BEDTIME Qty: 45 3RF Discharge Orders: Discharge Order (Routine); Ordered 05/22/23 Ordered By: Je Rodriguez Referrals: Fredrick Asif MD [Physician] - 7-10 days Autumn Pierre DO [Primary Care Provider] - 06/08/23 2:00 pm () Sparkle Paz MD [Physician] - 05/25/23 11:30 am () Discharge Diet: Cardiac Discharge Activity: Resume usual activity Patient Instructions: Diltiazem (By mouth) (Cardizem, Cardizem CD, Cardizem LA, Cardizem SR), Doxycycline (By mouth), Prednisone (By mouth) (predniSONE Intensol, Prednicot, Deltasone, Stefani), Heart Failure (DC), A-fib (Atrial Fibrillation) (DC), COPD (Chronic Obstructive Pulmonary Disease) (DC), CHF Stoplight, Opioid Safety Activity Restrictions/Additional Instructions: - For your atrial fibrillation, please take Cardizem as prescribed ? Please Hold Coumadin for Today, Tomorrow, Call Dr. Paz Office tommorow , Recheck INR Tomorrow, Further Dosing Based on What Your INR Is, INR 05/22/2023 is 4 -Take antibiotics as prescribed, ? Follow-up cardiology next week, ? Take steroids as prescribed, Discharge Attestations Time Spent in Discharge Care*: greater than 30 min Quality Metrics Clinical Quality Measures [ No reported AMI, CVA or VTE this stay] Coding Level of Care Code 29291 Total time (in minutes) for Discharge: 45 Diagnoses Paroxysmal atrial fibrillation with RVR I48.0 COPD exacerbation J44.1 Chronic lymphocytic leukemia C91.10 Physical deconditioning R53.81
--- NOTE | 2023-05-20 12:33 | PC.NURSE ---
Gave patient cardizem 30mg at 1233. Provider entered a on time dose of cardizem 30mg for 1233.
--- NOTE | 2023-05-20 15:54 | CTR_ITS ---
PROCEDURE INFORMATION: Exam: CT Chest Without Contrast; Diagnostic Exam date and time: 05/20/2023 4:11 PM Age: 83 years old Clinical indication: Shortness of breath; Additional info: SOB TECHNIQUE: Imaging protocol: Diagnostic computed tomography of the chest without contrast. Radiation optimization: All CT scans at this facility use at least one of these dose optimization techniques: automated exposure control; mA and/or kV adjustment per patient size (includes targeted exams where dose is matched to clinical indication); or iterative reconstruction. REPORTING DATA: Count of CT and Cardiac NM exams in prior 12 months: This patient has received 4 known CTs and 0 known cardiac nuclear medicine studies in the 12 months prior to the current study. COMPARISON: [place] [id number] 01/02/2023 11:40 AM RADIATION DOSE METRICS: Total DLP (mGy-cm): 457.47 FINDINGS: Lungs: Emphysematous changes. Development of right upper lobe cavity with thick wall that was not present on prior exam. Minimal bibasilar scarring. No focal airspace disease. Pleural spaces: Unremarkable. No pneumothorax. No pleural effusion. Heart: Unremarkable. No cardiomegaly. No pericardial effusion. Coronary arteries: Coronary artery calcifications. Lymph nodes: Unremarkable. No enlarged lymph nodes. Vasculature: Unremarkable. No aortic aneurysm. Gallbladder and bile ducts: Previous cholecystectomy. Pancreas: Mild fatty atrophy of the pancreas. Kidneys and ureters: Mild bilateral perinephric stranding. Bones/joints: Unremarkable. No acute fracture. Soft tissues: Unremarkable. CT/CT chest wo con [id number] IMPRESSION: Emphysema. Development of somewhat irregularly walled cavity in the right upper lobe since prior CT from 01/02/2023. This may represent sequela of interval infection or progression of emphysematous change. No infiltrate.
[2023-05-20 16:52] LABS: Glucose Point of Care 240 mg/dL (70-110)
--- NOTE | 2023-05-20 17:20 | P.PN_ITS ---
Subjective Subjective: Patient was examined multiple times throughout the morning, and into the evening, he continues to have A-fib events heart rates in the 140s upon exertion, Cardizem dose has been increased to 60 every 6, he continues to complain of cough, wheezing, will do CT of the chest continues to monitor as i npatient, due to persistent shortness of breath, atrial fibrillation Vitals/I&O/Wt Last Vital Signs Temp 97.8 F 05/20/23 16:00 Pulse 65 05/20/23 16:00 Resp 19 H 05/20/23 16:00 BP 137/69 05/20/23 16:00 Pulse Ox 96 05/20/23 16:00 O2 Del Method Nasal Cannula 05/20/23 16:00 O2 Flow Rate 3 05/20/23 08:10 05/20/23 05/20/23 05/20/23 06:59 14:59 22:59 Intake Total 450 / 2114 250 / 250 Output Total 700 / 900 650 / 650 Balance -250 / 1214 -400 / -400 Physical Exam Const: COMMON NORMALS: no acute distress and patient oriented x3 Resp: COMMON NORMALS: normal respiratory effort, No retractions and No use of accessory muscles AUSCULTATION: wheezes Cardio: COMMON NORMALS: S1 normal heart sound present and S2 normal heart sound present RATE: tachycardic HEART SOUNDS: S1 normal heart sound present and S2 normal heart sound present GI: COMMON NORMALS: Normal to inspection, nondistended, normoactive bowel sounds present, Soft to palpation, non-tender and no bruits PALPATION: Yes Soft to palpation Extremity: COMMON NORMALS: no pedal edema Neuro: COMMON NORMALS: patient oriented x3 Psych: COMMON NORMALS: mental status grossly normal Data 05/20/23 03:48 05/20/23 03:48 Micro: Microbiology 05/17/23 21:15 Gram Stain - Final Sputum - Expectorated Sputum Sputum Culture - Preliminary Gram Negative Rods A&P Assessment and plan (1) Paroxysmal atrial fibrillation with RVR: Increase Cardizem to 60 every 6 ? Continue Coumadin, ? Monitor INR CONCLUSIONS ?Technically limited quality echocardiogram. ?LV systolic function is normal with EF of 55 to 60%. ?Aortic valve is thickened. ?Trace tricuspid regurgitation ?Trace pulmonic regurgitation ?IVC is dilated. ?Compared to prior echocardiogram from 01/29/2022, no significant ?changes are seen (2) COPD exacerbation: Severe exacerbation of COPD, with dyspnea, purulent sputum, diminished air entry, rhonchi, wheezing. Hypoxia. Discussed with him treatment with ceftriaxone, Solu-Medrol. DuoNebs. Collect sputum culture. Respiratory viral panel. Flutter valve. Oxygen support as needed. ? Continue Rocephin, azithromycin (3) Chronic lymphocytic leukemia: With chronically elevated WBC. (4) Physical deconditioning: He is significantly, dyspnea on exertion. Suspect combination of COPD dissipation, A-fib with RVR. Has been having more difficulties with mobility. Will obtain PT assessment. Plan DM2: Requesting Accu-Cheks. Sliding scale insulin. Consistent carb diet. CKD: Creatinine reviewed, slightly worsened recently at 1.7. BUN noted 30. Hold olmesartan. Noted mild hyperkalemia. Hold potassium supplement. Reassess renal function. GERD: PPI Multiple other medical problems. Leukocytosis, persists, CT of the chest shows cavitary right upper lobe lesion, concerning for progression of infection broaden antibiotic coverage to Zosyn and vancomycin, monitor clinically here follow sputum cultures, Attestations Medical Necessity Statement*: Patient requires hospitalization for right upper lobe cavitary lesion, pneumonia, respiratory failure, A-fib Diagnoses Paroxysmal atrial fibrillation with RVR I48.0 COPD exacerbation J44.1 Chronic lymphocytic leukemia C91.10 Physical deconditioning R53.81
[2023-05-20] MEDS: atorvastatin 40 mg Tablet 20 MG PO (17:38)
[2023-05-20] MEDS: dilTIAZem 60 mg Tablet PO ×2 (17:38→23:46)
[2023-05-20] MEDS: tamsulosin 0.4 mg Capsule PO (17:38)
--- NOTE | 2023-05-20 17:38 | PC.PHAR ---
Pharmacokinetic dosing service Date: 05/20/23 Time: 1737 Objective: Patient: Jesús Cole Floor: 107-1 Age: 83 yo Serum creatinine: 1.6 mg/dL Height: 70.0 Inches Weight (kg): 81.647 Diagnosis: Relevant medical/social history: Cultures and sensitivities: Other labs: Assessment: IBW (kg): 73.00 Dosing wt(kg): 81.647 Estimated Creatinine clearance (ml/min): 37.4 CRCL method: Cockcroft and Gault using ibw(default). Drug selected: Vancomycin Loading dose (mg): 0 Vd (liters): 73.5 (factor used: 0.9 L/kg) Balta (hr-1): 0.035 Half life (hrs): 19.80 Recommended dose: 1500 mg Interval: 24 hrs Infusion time (hrs): 1.5 Predicted peak (mcg/mL): 35.0 Predicted trough (mcg/mL): 15.92 Total body weight is being used for vancomycin dosing. Renal function is stable [ ] /unstable [ ] Recommendations: Give Vancomycin 1500 mg q 24 hrs with an expected Cpeak of 35.0 mcg/ml and an expected Ctrough of 15.92 mcg/ml Renal dosing of other antibiotics (review renal dosing of other medications and list guidelines here): Thank you for the consult, will continue to follow. Signature: Geovanna Ellis [facility]
[2023-05-20] MEDS: vancomycin 1,500 MG/300 ML PIGGYBACK 200 MG IV (17:55)
[2023-05-20 20:58] LABS: Glucose Point of Care 392 mg/dL (70-110)
[2023-05-20] MEDS: piperacillin-tazobactam 3.375 GM in sodium chloride 0.9% (plus) 50 ML IV (21:30)
[2023-05-21] VITALS (18 sets, daily range): BP systolic 110–146; BP diastolic 57–75; PULSE 50–82; RESP 15–23; TEMP 36.4–36.7; O2SAT 88–98
[2023-05-21] MEDS: ipratropium-albuterol 3 mL Neb INHALATION ×4 (02:30→21:41)
[2023-05-21] MEDS: piperacillin-tazobactam 3.375 GM in sodium chloride 0.9% (plus) 50 ML IV ×3 (03:58→20:39)
[2023-05-21 05:31] LABS: Basophils % 0.1 %; Hematocrit 39.8 % (37-53); Lymphocytes # 4.1 10^3/uL (0.8-4.8); Lymphocytes % 17.5 %; Mean Corpuscular HGB Conc 30.7 g/dL (30-55); Mean Corpuscular Hemoglobin 29.9 pg (27-33); Mean Corpuscular Volume 97.5 fl (82-101); Mean Platelet Volume 10.5 fL (7.4-10.4); Monocytes # 0.6 10^3/uL (0.2-0.9); Monocytes % 2.3 %; Neutrophils # 18.57 10^3/uL (1.8-7.7); Neutrophils % 79.4 %; Nucleated Red Blood Cells % 0 %; Platelet Count 232 10^3/cmm (157-399); Red Blood Count 4.08 10^6/uL (3.85-5.65); Red Cell Distribution Width 14.1 % (12.1-15.1); White Blood Count 23.43 10^3/uL (3.29-11.43)
[2023-05-21 05:54] LABS: Alanine Aminotransferase 14 U/L (0-41); Albumin Level 3.3 g/dL (3.5-5.2); Alkaline Phosphatase 94 U/L (40-130); Anion Gap 13.9 (5-19); Aspartate Amino Transferase 9 U/L (0-40); Blood Urea Nitrogen 54 mg/dL (8-23); Calcium 8.6 mg/dL (8.5-10.5); Carbon Dioxide 27 mmol/L (22-29); Chloride 105 mmol/L (98-107); Globulin 2.2 g/dL (1.3-4.6); Glucose 212 mg/dL (65-115); Osmolality Calculated 313 mOsm/kg (285-295); Potassium 4.9 mmol/L (3.5-5.1); Sodium 141 mmol/L (136-145); Total Bilirubin 0.3 mg/dL (0.15-1.2); Total Protein 5.5 g/dL (6.6-8.7)
[2023-05-21] MEDS: dilTIAZem 60 mg Tablet PO ×3 (06:06→17:52)
[2023-05-21] MEDS: allopurinol 300 mg Tablet 150 MG PO (06:06)
[2023-05-21 06:08] LABS: Glucose Point of Care 208 mg/dL (70-110)
[2023-05-21] MEDS: budesonide 0.5 mg/2 mL Neb INHALATION ×2 (07:21→21:41)
[2023-05-21] MEDS: insulin lispro 100 unit/1 mL SUBCUT ×4 (08:11→21:50)
[2023-05-21] MEDS: methylPREDNISolone sod succ 40 mg/mL INJ IVP ×2 (08:11→20:39)
[2023-05-21] MEDS: citalopram 20 mg Tablet 30 MG PO (08:11)
[2023-05-21] MEDS: guaiFENesin 600 mg Tablet PO ×2 (09:47→17:53)
[2023-05-21 10:35] LABS: INR 3.88 (0.8-1.2)
[2023-05-21 11:59] LABS: Glucose Point of Care 331 mg/dL (70-110)
--- NOTE | 2023-05-21 12:42 | PC.SOCIAL ---
IMM Updated Updated pt on IMM. No questions voiced. Provided pt a copy. Initialed, dated, & timed copy in chart.
[2023-05-21 16:19] LABS: Glucose Point of Care 325 mg/dL (70-110)
--- NOTE | 2023-05-21 17:36 | P.PN_ITS ---
Subjective Subjective: Patient was seen this morning, he is resting comfortably in bed, white blood cell count 23,000 he is afebrile, he does report shortness of breath on exertion, we discussed his CT scan findings, I discussed with cardiothoracic surgery, there is a multitude of things it could be, however recommended continue antibiotic therapy as his white count is improving, sputum cultures are showing Pseudomonas, likely pneumonia, it could be aspiration pneumonia, could be Pseudomonas pneumonia, the other thought is it could be fungal infection, although is no risk factors no risk factors for tuberculosis, denies exposure to TB or prior history of TB, no history of fungal infection or history of immunoco mpromise state, no history of smoking, the question is is that could this be underlying malignancy, it certainly possible, but we discussed if he clinically improves, we can discharge him home with outpatient follow-up with pulmonary, consideration of bronchoscopy, or PET scanning, he voiced understanding, all Qs answered, agreed to proceed I advised him to continue ambulating, will monitor his respiratory respiratory status, Vitals/I&O/Wt Last Vital Signs Temp 97.9 F 05/21/23 15:46 Pulse 78 05/21/23 15:46 Resp 22 H 05/21/23 15:46 BP 145/75 05/21/23 15:46 Pulse Ox 96 05/21/23 15:46 O2 Del Method Nasal Cannula 05/21/23 15:46 O2 Flow Rate 3 05/21/23 13:20 05/21/23 05/21/23 05/21/23 06:59 14:59 22:59 Intake Total 50 / 1080 650 / 650 Output Total 175 / 1075 300 / 300 Balance -125 / 5 350 / 350 Physical Exam Const: COMMON NORMALS: no acute distress and patient oriented x3 HENMT: COMMON NORMALS: normocephalic HEAD & SCALP: normocephalic Resp: OTHER: Scattered wheezing on examination Cardio: COMMON NORMALS: regular rate, regular rhythm, S1 normal heart sound present and S2 normal heart sound present RATE: regular rate RHYTHM: regular rhythm HEART SOUNDS: S1 normal heart sound present and S2 normal heart sound present GI: COMMON NORMALS: Normal to inspection, nondistended, normoactive bowel sounds present and non-tender Extremity: COMMON NORMALS: no pedal edema Neuro: COMMON NORMALS: patient oriented x3 Psych: COMMON NORMALS: mental status grossly normal Data 11/13/23 04:55 05/21/23 04:55 Micro: Microbiology 05/17/23 21:15 Gram Stain - Final Sputum - Expectorated Sputum Sputum Culture - Preliminary Pseudomonas aeruginosa A&P Assessment and plan (1) Paroxysmal atrial fibrillation with RVR: Increase Cardizem to 60 every 6 hours ? Continue Coumadin currently on hold, given INR 3.88, ? Monitor INR CONCLUSIONS ?Technically limited quality echocardiogram. ?LV systolic function is normal with EF of 55 to 60%. ?Aortic valve is thickened. ?Trace tricuspid regurgitation ?Trace pulmonic regurgitation ?IVC is dilated. ?Compared to prior echocardiogram from 01/29/2022, no significant ?changes are seen (2) COPD exacerbation: Severe exacerbation of COPD, with dyspnea, purulent sputum, diminished air entry, rhonchi, wheezing. Hypoxia. Discussed with him treatment with ceftriaxone, Solu-Medrol. DuoNebs. Collect sputum culture. Respiratory viral panel. Flutter valve. Oxygen support as needed. -Continue oxygen therapy, nebulizer therapy, steroid therapy (3) Chronic lymphocytic leukemia: With chronically elevated WBC. (4) Physical deconditioning: He is significantly, dyspnea on exertion. Suspect combination of COPD dissipation, A-fib with RVR. Has been having more difficulties with mobility. Will obtain PT assessment. (5) Pseudomonas pneumonia: ? Sputum culture showing Pseudomonas species, continue Zosyn ? We will de-escalate off vancomycin, ? Monitor respiratory status closely, (6) Pneumonia with cavity of lung: Emphysema.? Development of somewhat irregularly walled cavity in the right upper lobe since prior CT from 01/02/2023.? This may represent sequela of interval infection or progression of emphysematous change. No infiltrate.? ?-Continue Zosyn, ? Monitor respiratory status closely, -tuberculosis skin test, AFB smear, ? Fungitell, ? Aspergillosis, ? Coccidioides, blasto, histo tests ? We will have patient follow-up with pulmonary as outpatient Plan DM2: Requesting Accu-Cheks. Sliding scale insulin. Consistent carb diet. CKD: Creatinine reviewed, slightly worsened recently at 1.7. BUN noted 30. Hold olmesartan. Noted mild hyperkalemia. Hold potassium supplement. Reassess renal function. GERD: PPI Multiple other medical problems. Patient requires hospitalization for Pseudomonas pneumonia, cavitary lesion of lung, COPD exacerbation, atrial fibrillation, Attestations Medical Necessity Statement*: Patient requires hospitalization for Pseudomonas pneumonia, cavitary lesion right lung, COPD, atrial fibrillation, requiring inpatient mission, IV antibiotics, clinical monitoring, likely discharge in 24 hours Diagnoses Paroxysmal atrial fibrillation with RVR I48.0 COPD exacerbation J44.1 Chronic lymphocytic leukemia C91.10 Physical deconditioning R53.81 Pseudomonas pneumonia J15.1 Pneumonia with cavity of lung J18.9; J98.4
[2023-05-21] MEDS: atorvastatin 40 mg Tablet 20 MG PO (17:53)
[2023-05-21] MEDS: vancomycin 1,500 MG/300 ML PIGGYBACK 200 MG IV (17:53)
[2023-05-21] MEDS: tamsulosin 0.4 mg Capsule PO (18:17)
[2023-05-21 21:02] LABS: Glucose Point of Care 277 mg/dL (70-110)
--- NOTE | 2023-05-21 23:44 | PC.NURSE ---
Patient has 60 mg cardizem due @ 0000, HR at 54, dr notified and was instructed to give med.
[2023-05-22] VITALS (8 sets, daily range): BP systolic 125–149; BP diastolic 64–74; PULSE 59–63; RESP 16–20; TEMP 36.6–36.7; O2SAT 94–96
[2023-05-22] MEDS: dilTIAZem 60 mg Tablet PO ×2 (00:07→06:41)
[2023-05-22] MEDS: ipratropium-albuterol 3 mL Neb INHALATION ×2 (02:34→07:39)
[2023-05-22] MEDS: piperacillin-tazobactam 3.375 GM in sodium chloride 0.9% (plus) 50 ML IV (04:10)
[2023-05-22 04:56] LABS: Basophils % 0.1 %; Hematocrit 37.7 % (37-53); Lymphocytes # 3.7 10^3/uL (0.8-4.8); Lymphocytes % 15.9 %; Mean Corpuscular HGB Conc 31.6 g/dL (30-55); Mean Corpuscular Hemoglobin 29.9 pg (27-33); Mean Corpuscular Volume 94.7 fl (82-101); Mean Platelet Volume 9.7 fL (7.4-10.4); Monocytes # 0.6 10^3/uL (0.2-0.9); Monocytes % 2.7 %; Neutrophils # 18.59 10^3/uL (1.8-7.7); Neutrophils % 80.6 %; Nucleated Red Blood Cells % 0 %; Platelet Count 246 10^3/cmm (157-399); Red Blood Count 3.98 10^6/uL (3.85-5.65); White Blood Count 23.07 10^3/uL (3.29-11.43)
[2023-05-22 05:10] LABS: INR 4.02 (0.8-1.2)
[2023-05-22 05:23] LABS: Alanine Aminotransferase 29 U/L (0-41); Albumin Level 2.9 g/dL (3.5-5.2); Alkaline Phosphatase 86 U/L (40-130); Anion Gap 13.9 (5-19); Aspartate Amino Transferase 15 U/L (0-40); Blood Urea Nitrogen 54 mg/dL (8-23); Calcium 8.7 mg/dL (8.5-10.5); Carbon Dioxide 24 mmol/L (22-29); Chloride 106 mmol/L (98-107); Globulin 2.5 g/dL (1.3-4.6); Glucose 215 mg/dL (65-115); Osmolality Calculated 309 mOsm/kg (285-295); Potassium 4.9 mmol/L (3.5-5.1); Sodium 139 mmol/L (136-145); Total Bilirubin 0.2 mg/dL (0.15-1.2); Total Protein 5.4 g/dL (6.6-8.7)
[2023-05-22] MEDS: allopurinol 300 mg Tablet 150 MG PO (06:42)
[2023-05-22 06:55] LABS: Glucose Point of Care 213 mg/dL (70-110)
[2023-05-22] MEDS: budesonide 0.5 mg/2 mL Neb INHALATION (07:39)
[2023-05-22] MEDS: methylPREDNISolone sod succ 40 mg/mL INJ IVP (07:56)
[2023-05-22] MEDS: insulin lispro 100 unit/1 mL SUBCUT (07:56)
[2023-05-22] MEDS: citalopram 20 mg Tablet 30 MG PO (08:09)
[2023-05-22] MEDS: guaiFENesin 600 mg Tablet PO (08:09)
[2023-05-22 10:48] LABS: Glucose Point of Care 279 mg/dL (70-110)
[2023-05-24 16:30] LABS: Quantiferon Mitogen 4.57 IU/mL; Quantiferon Nil 0.01 IU/mL; Quantiferon Plus TB2 0.01 IU/mL; Quantiferon TB Gold NEGATIVE (NEGATIVE)
[2023-05-26 18:59] LABS: Fungitell 1-3-B Glucan Assay <31 pg/mL; Interpretation NEGATIVE
[2023-05-27 16:29] LABS: Aspergillus AG,EIA,Serum NOT DETECTED; Aspergillus Galactomannan Inde <0.50
== END 2023-05-22 12:58 | disposition home or self-care (01) | DRG 308 ==
LOC: ER 22:45 → ICU 23:09 → CSU 05-18 18:04
PROVIDERS: Admitting Provider Internal Medicine; Emergency Provider Emergency Medicine; PCP Family Medicine; Visit Provider Family Medicine
DX: I48.0 Paroxysmal atrial fibrillation (principal); J15.1 Pneumonia due to Pseudomonas; C91.10 Chronic lymphocytic leukemia of B-cell type not having achieved remission; N18.4 Chronic kidney disease, stage 4 (severe); J43.9 Emphysema, unspecified; Z99.81 Dependence on supplemental oxygen; Z87.891 Personal history of nicotine dependence; I12.9 Hypertensive chronic kidney disease with stage 1 through stage 4 chronic kidney disease, or unspecified chronic kidney disease; E11.22 Type 2 diabetes mellitus with diabetic chronic kidney disease; K21.9 Gastro-esophageal reflux disease without esophagitis; M10.9 Gout, unspecified; H91.90 Unspecified hearing loss, unspecified ear; R09.02 Hypoxemia; I48.92 Unspecified atrial flutter; E87.5 Hyperkalemia; G31.09 Other frontotemporal neurocognitive disorder; F02.80 Dementia in other diseases classified elsewhere, unspecified severity, without behavioral disturbance, psychotic disturbance, mood disturbance, and anxiety
CPT/HCPCS: 36415; 36416; 71045; 71250; 80048; 80051; 80053; 81001; 82330; 82805; 82962; 83735; 83880; 84145; 84443; 84484; 85025; 85610; 86140; 86480; 87040; 87070; 87077; 87186; 87205; 87305; 87449; 87486; 87581; 87633; 93005; 93306; 94640; 96365; 96366; 96372; 96375; 96376; 97110; 97116; 97161; 99291; J0456; J0696; J1815; J1940; J2060; J2543; J2920; J3370; J3490; J7050; J7626

== ENCOUNTER 2023-06-25 14:20 | Outpatient (CLI) | payer MEDICARE, BC, SELFPAY ==
[2023-06-25 14:54] LABS: Prothrombin Time (Patient) 53.9 Seconds (12.0-15.1)
[2023-06-25 20:33] LABS: INR 5.72 (0.83-1.21)
== END 2023-06-25 14:21 | disposition home or self-care (01) ==
LOC: LAB 14:21
PROVIDERS: Internal Medicine Cardiovascular Disease; PCP Family Medicine; Visit Provider Internal Medicine Pulmonary Disease
DX: I48.0 Paroxysmal atrial fibrillation (principal)
CPT/HCPCS: 36415; 85610; 99214

== ENCOUNTER 2023-07-20 12:27 | Emergency (ER) | payer MEDICARE, SELFPAY ==
[2023-07-20 12:28] VITALS: BP 123/51; PULSE 80; RESP 24; TEMP 36.6; O2SAT 93
--- NOTE | 2023-07-20 12:28 | XR_ITS ---
WS: [id number] XR chest 1V portable [id number] REASON FOR EXAM: CXP FINDINGS: Minimal tortuosity of the thoracic aorta with normal heart size. Calcified granulomas disease in both hemithoraces and chronic reticular interstitial lung opacities i n both lung bases. Irregular density in the right lung apex related to previous lung cavity with inflammatory changes. P resumably scar. No acute chest abnormality is identified. IMPRESSION: No acute chest abnormality.
--- NOTE | 2023-07-20 12:28 | ECG_ITS ---
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 Measurements Intervals [place] Rate: 76 P: 83 [place]: 158 QRS: 69 QRSD: 86 T: 78 QT: 377 QTc: 424 Interpretive Statements SINUS RHYTHM POSSIBLE RIGHT VENTRICULAR CONDUCTION DELAY [RSR (QR) IN V1/V2] NONSPECIFIC T-WAVE ABNORMALITY Compared to ECG 05/17/2023 02:41:42 T-wave abnormality now present Atrial fibrillation no longer present Myocardial infarct finding no longer present Electronically Signed On 07-20-2023 13:44:35 CHEMICAL PROCESS ENGINEER by Rudi Briscoe M.D. [id number]
--- NOTE | 2023-07-20 12:28 | W.ED.CHESTPA ---
HPI - Chest Pain General: Chief Complaint: Chest Pain Stated Complaint: dr lazar, chest pain, sob Time Seen by Provider: 07/20/23 12:28 History of Present Illness: 83-year-old male presents to the emergency department after seeing the urgent care. He states he has a history of COPD and CHF. He states he is actively having substernal chest pain that is a 4 out of 10. He does have lower leg swelling he states that is much worse since yesterday. He states for the previous month he has had intermittent shortness of breath and chest pain on exertion. He states his chest pain has now become constant and is he having difficulty breathing. He states he has been unable to lie flat when attempting to sleep because he becomes short of breath and feels like he is having difficulty breathing during that time. He states he has had to sit up in order to sleep. Associated symptoms: Reports dyspnea Review of Systems General: Reports: 10 or more systems reviewed and unremarkable except in HPI and below Card: Reports: chest pain, edema and swelling of feet/ankles Resp: Reports: dyspnea, non-productive cough and wheezing [facility] ED PFSH: Medical History Type 2 diabetes mellitus without complications Delirium Frontal lobe dementia Word finding difficulty Displaced fracture of right femoral neck Hyperkalemia Closed fracture of right hip Depression Acute exacerbation of chronic obstructive airways disease CKD (chronic kidney disease), stage IV Viral upper respiratory infection Acute and chronic respiratory failure with hypoxia Atrial fibrillation with rapid ventricular response Pneumonia CLL (chronic lymphocytic leukemia) Lymphocytosis Bradycardia Long-term (current) use of anticoagulants, INR goal 2.0-3.0 Dyslipidemia Edema leg COPD (chronic obstructive pulmonary disease) CKD (chronic kidney disease) Pain in right knee GERD (gastroesophageal reflux disease) Atopic dermatitis, unspecified Gout, unspecified CAP (community acquired pneumonia) Orthopnea Unspecified atrial fibrillation Essential (primary) hypertension Pain in left finger(s) Surgical History History of left hip replacement Dr. Bennett - 11/2021 at [place], [place] History of prostate surgery History of total knee replacement History of cholecystectomy Family History Other Cancer Hypertension Lung disease Denies family history of Diabetes CAD (coronary artery disease) Clotting disorder Dementia Hyperlipidemia Psychiatric illness Chronic kidney disease (CKD) Suicide Anesthesia complication Bleeding disorder Stroke Social History Smoking and tobacco/nicotine status: former use of tobacco/nicotine Quit status (tobacco/nicotine): has quit using Year quit tobacco: 2010 - 1PPD x 50 Years Second hand smoke exposure: No Alcohol intake: current Substance/Drug Use: never Lives independently: Yes Household members: spouse Marital status: Current occupational status: retired Do you think of yourself as: Straight/Heterosexual Current gender identity: Male Physical Exam Narrative: EXAM NARRATIVE: Constitutional: the patient appears well nourished and with normal development. Vital signs reviewed as documented. HENMT: Normocephalic, atraumatic. Extermal ears with normal appearance without drainage. Nose without drainage, normal appearance. Mucus membranes moist. Neck is supple, No jugular venous distension, trachea is midline, no appreciable carotid bruits. No lymphadenopathy. No meningeal signs. Flexion, extension and lateral rotation is without pain. Eyes: Pupils are equal, round, reactive to light and accommodation. No scleral icterus. Extra-ocular movement are intact. Thorax is symmetrical and with equal rise and fall with respirations. Resp: Coarse sounding, bilateral expiratory wheezes noted. Obvious increased work of breathing. Cardio: Regular rate and rhythm. Positive S1, S2. No appreciable murmurs, rubs or gallops. GI: Abdominal exam reveals normal bowel sounds to all quadrants. No organomegaly. No obvious palpable masses noted. No hepatomegally appreciated. Soft, nontender to palpation. Extremity: Extremities are 3+ bilateral lower extremity pitting edema and both femoral and pedal pulses are 2+ and equal bilaterally. Moves all extremities well, sensation in all extremities. Neuro: Alert and oriented x4, person, place, time and situation. Cranial nerves II through XII are grossly intact, there is no focal neurological deficits that I can appreciate at present. Motor strength in the upper and lower extremities are equal and bilateral 5/5. Psych: Cooperative, calm, normal thought process, appropriate judgment. Skin: No lesions, rashes. No gross abnormalities noted. Back: Symmetrical, no obvious deformity, No CVA tenderness Course Reevaluation(s): Reevaluation #1: Reevaluation of the patient he states he is doing much better. He states he is not short of breath he is currently on 2 L nasal cannula he does not wear home oxygen at night I did advise him to continue the 2 L nasal cannula and to increase his Lasix dose for the next 3 days and then follow-up with his primary care provider to discuss additional evaluation and cardiology referral. I will provide the patient Ariannasalon Perles for his cough as well as Mucinex to help with some of his upper respiratory congestion. I did discuss the patient's elevated white blood cell count and given his history of CHF and COPD I will provide him azithromycin and attempt to prevent any development of pneumonia. Time: 15:53 Vital Signs: Vital signs: Vital Signs Temperature 97.9 F 07/20/23 12:28 Pulse Rate 80 07/20/23 12:28 Respiratory Rate 24 H 07/20/23 12:28 Blood Pressure 123/51 07/20/23 12:28 Pulse Oximetry 93 07/20/23 12:28 Oxygen Delivery Me thod Room Air 07/20/23 12:28 MDM - Chest Pain Medical Decision Making 83-year-old male presents with complaints of active chest pain and worsening shortness of breath as well as edema with a history of COPD and CHF. Worsening dyspnea on exertion for the previous 24 hours. We will provide him cardiac evaluation to include twelve-lead EKG, cardiac dose aspirin, CBC CMP serial troponins chest x-ray and continued evaluation. Medical Records I reviewed the patient's medical records. Lab Data I reviewed the patient's lab results. 07/20/23 12:53 07/20/23 12:53 Laboratory Results WBC 18.19 10^3/uL (3.29-11.43) H 07/20/23 12:53 RBC 4.13 10^6/uL (3.85-5.65) 07/20/23 12:53 Hgb 12.50 g/dL (11.27-16.99) 07/20/23 12:53 Hct 39.3 % (37-53) 07/20/23 12:53 MCV 95.2 fl (82-101) 07/20/23 12:53 MCH 30.3 pg (27-33) 07/20/23 12:53 MCHC 31.8 g/dL (30-55) 07/20/23 12:53 RDW 15.3 % (12.1-15.1) H 07/20/23 12:53 Plt Count 225 10^3/cmm (157-399) 07/20/23 12:53 MPV 9.0 fL (7.4-10.4) 07/20/23 12:53 Neut % (Auto) 62.0 % 07/20/23 12:53 Lymph % (Auto) 23.6 % 07/20/23 12:53 Woodward % (Auto) 5.5 % 07/20/23 12:53 Eos % (Auto) 7.9 % 07/20/23 12:53 Baso % (Auto) 0.4 % 07/20/23 12:53 Neut # (Auto) 11.28 10^3/uL (1.8-7.7) H 07/20/23 12:53 Lymph # (Auto) 4.3 10^3/uL (0.8-4.8) 07/20/23 12:53 Woodward # (Auto) 1.0 10^3/uL (0.2-0.9) H 07/20/23 12:53 Eos # (Auto) 1.4 10^3/uL (0.0-0.8) H 07/20/23 12:53 Baso # (Auto) 0.1 10^3/uL (0.0-0.1) 07/20/23 12:53 Nucleated RBC % (auto) 0 % 07/20/23 12:53 Nucleated RBCs # 0.0 /100WBC 07/20/23 12:53 PT 20.00 SECONDS (12.1-14.9) H 07/20/23 12:53 INR 1.64 (0.8-1.2) H 07/20/23 12:53 APTT 30.5 SECONDS (23.9-36.7) 07/20/23 12:53 Sodium 142 mmol/L (136-145) 07/20/23 12:53 Potassium 4.6 mmol/L (3.5-5.1) 07/20/23 12:53 Chloride 105 mmol/L (98-107) 07/20/23 12:53 Carbon Dioxide 25 mmol/L (22-29) 07/20/23 12:53 Anion Gap 16.6 (5-19) 07/20/23 12:53 BUN 32 mg/dL (8-23) H 07/20/23 12:53 Creatinine 1.3 mg/dL (0.7-1.2) H 07/20/23 12:53 GFR Calculation Not Reportable 07/20/23 12:53 Glucose 110 mg/dL (65-115) 07/20/23 12:53 Calculated Osmolality 302 mOsm/kg (285-295) H 07/20/23 12:53 Lactic Acid 2.4 mmol/L (0.5-2.2) H 07/20/23 12:53 Lactic Acid (Sepsis) 1.5 mmol/L (0.5-2.2) 07/20/23 14:39 Calcium 9.7 mg/dL (8.5-10.5) 07/20/23 12:53 Total Bilirubin 0.5 mg/dL (0.15-1.2) 07/20/23 12:53 AST 15 U/L (0-40) 07/20/23 12:53 ALT 15 U/L (0-41) 07/20/23 12:53 Alkaline Phosphatase 142 U/L (40-130) H 07/20/23 12:53 Troponin T Baseline 40 ng/L (0-15) H 07/20/23 12:53 Troponin T 120 Minute 35.09 ng/L (0-15) H 07/20/23 15:12 Delta Troponin T -4.91 ABS# (0-10) L 07/20/23 15:12 NT-Pro-B Natriuret Pep 254 pg/mL (0-450) 07/20/23 12:53 Total Protein 6.4 g/dL (6.6-8.7) L 07/20/23 12:53 Albumin 3.9 g/dL (3.5-5.2) 07/20/23 12:53 Globulin 2.5 g/dL (1.3-4.6) 07/20/23 12:53 Procalcitonin 0.13 ng/mL (0-0.5) 07/20/23 12:53 Influenza Type A Ag negative (Negative) 07/20/23 13:30 Influenza Type B Ag negative (Negative) 07/20/23 13:30 SARS-CoV-2 Ag (Rapid) negative (Negative) 07/20/23 13:30 All radiology interpretation(s) finalized by discharge EKG Data EKG 1: Interpretation: Twelve-lead EKG obtained at 1232 and reviewed at 1234 demonstrates sinus rhythm with a ventricular rate of 76 bpm. GA interval 158, QRS duration 86 QT 377 QTc [address] elevation or depression to demonstrate acute ischemia or infarction at present. EKG 2: Interpretation: Twelve-lead EKG obtained at 1459 and reviewed at 1500 demonstrates sinus bradycardia with occasional unifocal PVC. Ventricular rate 59 bpm, GA interval 156, QRS duration 89, QT 433 and QTc 433. There is no ST elevation or depression to demonstrate acute ischemia or infarction at present. Discharge Plan Discharge Patient Disposition: Home Clinical Impression: Respiratory illness, COPD exacerbation, Cough Condition: Stable Prescriptions: New azithromycin [Zithromax] 500 mg tablet See Rx Instructions .ROUTE .COMPLEX Qty: 3 0RF Rx Instructions: For 500 mg dose pack: take 500 mg once daily for 3 days benzonatate 200 mg capsule 200 mg PO TID Qty: 30 0RF guaifenesin 1,200 mg tablet extended release 12hr 1,200 mg PO BID Qty: 14 0RF No Action PreserVision AREDS-2 250-90-40-1 mg capsule 1 tab PO DAILY Yupelri 175 mcg/3 mL solution for nebulization 175 mcg inhalation DAILY Qty: 90 6RF formoterol fumarate [Perforomist] 20 mcg/2 mL solution for nebulization 2 ml inhalation BID Qty: 120 6RF Tradjenta 5 mg tablet 5 mg PO QPM Qty: 90 1RF warfarin 2 mg tablet 2 mg PO DIRECTED Qty: 90 3RF Hold Instructions: Resume on 05/22/23. Protocol: Dose Management Condition: Sunday Dose/Route: 2 mg Instruction: 1 x 2 mg tablet Condition: Sunday Dose/Route: 2 mg Instruction: 1 x 2 mg tablet Condition: Sunday Dose/Route: 3 mg Instruction: 1.5 x 2 mg tablets Condition: Sunday Dose/Route: 3 mg Instruction: 1.5 x 2 mg tablets Condition: Dose/Route: 2 mg Instruction: 1 x 2 mg tablet Condition: Sunday Dose/Route: 2 mg Instruction: 1 x 2 mg tablet Condition: Sunday Dose/Route: 2 mg Instruction: 1 x 2 mg tablet Protocol Text: Adjustment Start Date: Sunday07/16/23 INR Value: 1.6 INR Date: 07/16/23 Recheck Date: 07/23/23 Rx Instructions: Take 1 tablet on Sun, , Sunday, Sat, and Sun. albuterol sulfate 90 mcg/actuation HFA aerosol inhaler 2 puff inhalation Q4H PRN (Reason: Shortness Of Breath) Qty: 8.5 6RF citalopram 10 mg tablet See Rx Instructions .ROUTE .COMPLEX Qty: 90 0RF Dose Instruction: TAKE 1 TABLET BY MOUTH ONCE DAILY ( TAKE WITH 20 MG) Rx Instructions: TAKE 1 TABLET BY MOUTH ONCE DAILY (TAKE WITH 20 MG) diltiazem HCl 240 mg capsule,extended release 24 hr 240 mg PO DAILY 30 Days Qty: 30 2RF warfarin 3 mg tablet See Rx Instructions .ROUTE .COMPLEX Rx Instructions: Take 1 tablet by mouth on Sun and tamsulosin 0.4 mg capsule 0.4 mg PO QPM allopurinol 300 mg tablet 150 mg PO QAM Advair Diskus 500-50 mcg/dose blister with device 1 inh INHALATION BID Incruse Ellipta 62.5 mcg/actuation blister with device 1 inh INHALATION DAILY olmesartan 5 mg tablet 5 mg PO QAM calcium carbonate-vitamin D3 600 mg-5 mcg (200 unit) Tablet 1 tab PO QAM atorvastatin 20 mg tablet 20 mg PO QPM potassium chloride 10 mEq tablet extended release 10 meq PO DAILY PRN (Reason: Edema) furosemide 20 mg tablet 10 mg PO QAM citalopram 20 mg tablet See Rx Instructions .ROUTE .COMPLEX Qty: 90 1RF Dose Instruction: TAKE 1 TABLET BY MOUTH ONCE DAILY IN THE MORNING Rx Instructions: TAKE 1 TABLET BY MOUTH ONCE DAILY IN THE MORNING. TAKE WITH 10 MG) Discharge Orders: Discharge ED (Routine); Ordered 07/20/23 Ordered By: Arnulfo Clark Referrals: Autumn Pierre DO [Primary Care Provider] - Discharge Diet: Advance as tolerated Discharge Activity: Resume usual activity Patient Instructions: Opioid Safety, Pain Management Activity Restrictions/Additional Instructions: Activity Restrictions/Additional Instructions: Thank you for choosing [facility] for your healthcare needs today. Please realize that you were seen in the Emergency Department and that we are providing you with an emergency medical screening exam and this may not be a complete and all inclusive of all the testing and or medical work-up that you may need to determine your ailment or severity of your illness. It is very important that you follow-up as instructed with your Primary care provider or Specialist for additional evaluation and to discuss your medical treatment plan. You may return to the Emergency Department should you have concerns or if your condition changes or worsens in any way. Coding Level of Care Code ED 2Nd Pressman for 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
[2023-07-20 13:03] LABS: Basophils # 0.1 10^3/uL (0.0-0.1); Basophils % 0.4 %; Eosinophils # 1.4 10^3/uL (0.0-0.8); Eosinophils % 7.9 %; Hematocrit 39.3 % (37-53); Lymphocytes # 4.3 10^3/uL (0.8-4.8); Lymphocytes % 23.6 %; Mean Corpuscular HGB Conc 31.8 g/dL (30-55); Mean Corpuscular Hemoglobin 30.3 pg (27-33); Mean Corpuscular Volume 95.2 fl (82-101); Monocytes % 5.5 %; Neutrophils # 11.28 10^3/uL (1.8-7.7); Nucleated Red Blood Cells % 0 %; Platelet Count 225 10^3/cmm (157-399); Red Blood Count 4.13 10^6/uL (3.85-5.65); Red Cell Distribution Width 15.3 % (12.1-15.1); White Blood Count 18.19 10^3/uL (3.29-11.43)
[2023-07-20 13:13] LABS: INR 1.64 (0.8-1.2)
[2023-07-20 13:14] LABS: Partial Thromboplastin Time 30.5 SECONDS (23.9-36.7)
[2023-07-20 13:20] LABS: Troponin(5th) Baseline 40 ng/L (0-15)
[2023-07-20 13:28] LABS: Alanine Aminotransferase 15 U/L (0-41); Albumin Level 3.9 g/dL (3.5-5.2); Alkaline Phosphatase 142 U/L (40-130); Aspartate Amino Transferase 15 U/L (0-40); Blood Urea Nitrogen 32 mg/dL (8-23); Calcium 9.7 mg/dL (8.5-10.5); Carbon Dioxide 25 mmol/L (22-29); Chloride 105 mmol/L (98-107); Globulin 2.5 g/dL (1.3-4.6); Glucose 110 mg/dL (65-115); NT Pro B Type Natriuretic Pept 254 pg/mL (0-450); Osmolality Calculated 302 mOsm/kg (285-295); Sodium 142 mmol/L (136-145); Total Bilirubin 0.5 mg/dL (0.15-1.2); Total Protein 6.4 g/dL (6.6-8.7)
[2023-07-20] MEDS: aspirin 81 mg Chew Tablet 324 MG PO (13:29)
[2023-07-20 13:32] LABS: Anion Gap 16.6 (5-19); Potassium 4.6 mmol/L (3.5-5.1)
[2023-07-20 14:24] LABS: Influenza A by IFA negative (Negative); Influenza B by IFA negative (Negative); SARS Covid-2 Antigen negative (Negative)
--- NOTE | 2023-07-20 14:28 | ECG_ITS ---
[facility] Test Date: 2023-07-20 Pat Name: Jesús Cole Department: Room: Gender: Male Chief Nurse: : 1940 Requested By: Arnulfo Clark Order Number: [id number] Gloria MD: Rudi Briscoe M.D. Measurements Intervals [place] Rate: 59 P: 77 OR: 156 QRS: 60 QRSD: 89 T: 89 QT: 433 QTc: 432 Interpretive Statements SINUS BRADYCARDIA WITH OCCASIONAL VENTRICULAR PREMATURE COMPLEXES POSSIBLE RIGHT VENTRICULAR CONDUCTION DELAY [RSR (QR) IN V1/V2] NONSPECIFIC ST & T-WAVE ABNORMALITY Compared to ECG 07/20/2023 12:32:46 Ventricular premature complex(es) now present Sinus rhythm no longer present T-wave abnormality still present Electronically Signed On 07-20-2023 18:13:42 SUPERVISOR RESIDENTIAL by Rudi Briscoe M.D. [id number]
[2023-07-20 14:50] LABS: Lactic Sepsis W/Reflex 2.4 mmol/L (0.5-2.2)
[2023-07-20 14:58] LABS: Procalcitonin 0.13 ng/mL (0-0.5)
[2023-07-20 15:24] LABS: Reflex Lactate Order REFLEX LACTIC ORDERD
[2023-07-20 15:35] LABS: Troponin 5 2HR 35.09 ng/L (0-15)
[2023-07-20 15:37] LABS: Lactic Acid level (Lactate) 1.5 mmol/L (0.5-2.2)
[2023-07-20 15:37] LABS: Troponin 5 2HR Delta -4.91 ABS# (0-10)
== END 2023-07-20 16:29 | disposition home or self-care (01) ==
PROVIDERS: Emergency Provider Internal Medicine; PCP Family Medicine
DX: J44.1 Chronic obstructive pulmonary disease with (acute) exacerbation (principal); J98.9 Respiratory disorder, unspecified; Z11.52 Encounter for screening for COVID-19; Z79.01 Long term (current) use of anticoagulants; Z87.891 Personal history of nicotine dependence; E11.22 Type 2 diabetes mellitus with diabetic chronic kidney disease; I12.9 Hypertensive chronic kidney disease with stage 1 through stage 4 chronic kidney disease, or unspecified chronic kidney disease; N18.4 Chronic kidney disease, stage 4 (severe); Z85.6 Personal history of leukemia; E78.5 Hyperlipidemia, unspecified
CPT/HCPCS: 36415; 71045; 80053; 83605; 83880; 84145; 84484; 85025; 85610; 85730; 87040; 87426; 87804; 93005; 99285

== ENCOUNTER → 2023-08-23 11:28 | Outpatient (BNVA) | payer MEDICARE, BC, SELFPAY | PROVIDERS: PCP Family Medicine; Visit Provider Internal Medicine Cardiovascular Disease | DX: I13.0 Hypertensive heart and chronic kidney disease with heart failure and stage 1 through stage 4 chronic kidney disease, or unspecified chronic kidney disease (principal); E11.22 Type 2 diabetes mellitus with diabetic chronic kidney disease; N18.4 Chronic kidney disease, stage 4 (severe); Z87.891 Personal history of nicotine dependence; Z79.84 Long term (current) use of oral hypoglycemic drugs; I50.33 Acute on chronic diastolic (congestive) heart failure; E78.5 Hyperlipidemia, unspecified; R06.09 Other forms of dyspnea; I48.0 Paroxysmal atrial fibrillation; C91.10 Chronic lymphocytic leukemia of B-cell type not having achieved remission; J44.9 Chronic obstructive pulmonary disease, unspecified; J40 Bronchitis, not specified as acute or chronic | CPT/HCPCS: 99214 ==

== ENCOUNTER 2023-08-30 14:07 | Inpatient (IN) | payer MEDICARE, BC, SELFPAY ==
[2023-08-30] VITALS (16 sets, daily range): BP systolic 102–164; BP diastolic 46–81; PULSE 58–134; RESP 18–22; TEMP 36.6–36.9; O2SAT 88–96; BMI 25.8
--- NOTE | 2023-08-30 14:20 | ECG_ITS ---
[facility] Test Date: 2023-08-30 Pat Name: Jesús Cole Department: Room: Gender: Male Signwriter: : 1940 Requested By: Bk Perez Order Number: [id number] Gloria MD: Rudi Briscoe M.D. Measurements Intervals [place] Rate: 109 P: 73 IA: 143 QRS: 31 QRSD: 84 T: 80 QT: 338 QTc: 456 Interpretive Statements SINUS TACHYCARDIA WITH OCCASIONAL SUPRAVENTRICULAR PREMATURE COMPLEXES INDETERMINATE AXIS POSSIBLE RIGHT VENTRICULAR CONDUCTION DELAY [RSR (QR) IN V1/V2] MODERATE ST DEPRESSION [0.05+ mV ST DEPRESSION] Compared to ECG 07/20/2023 14:59:20 Indeterminate axis now present ST (T wave) deviation now present Sinus bradycardia no longer present Ventricular premature complex(es) no longer present T-wave abnormality no longer present Electronically Signed On 08-30-2023 20:05:11 SAFETY SEALER by Rudi Briscoe M.D. [id number] f
--- NOTE | 2023-08-30 14:20 | XR_ITS ---
WS: [id number] Examination: XR chest 1V portable [id number] Reason for Exam: dyspnea Date: 08/30/2023 Comparison: July 20, 2023 Findings: Heart is not enlarged. The mediastinum not widened. The codey are prominent. The lungs are hyperinflated. The previously identified right upper lobe infiltrate has near completely cleared. There is new bibas ilar infiltrate identified There is no failure or effusion. Previous surgical tire changer the lower cervical spine is noted. Impression: Chronic changes are present There are new bilateral basilar infiltrates. The right upper lobe infiltrate has near completely cleared.
[2023-08-30 14:38] LABS: Basophils # 0.1 10^3/uL (0.0-0.1); Basophils % 0.2 %; Eosinophils # 0.1 10^3/uL (0.0-0.8); Eosinophils % 0.1 %; Lymphocytes # 4.5 10^3/uL (0.8-4.8); Lymphocytes % 12.5 %; Mean Corpuscular HGB Conc 32.4 g/dL (30-55); Mean Corpuscular Hemoglobin 30.2 pg (27-33); Mean Corpuscular Volume 93.2 fl (82-101); Mean Platelet Volume 8.8 fL (7.4-10.4); Monocytes # 1.5 10^3/uL (0.2-0.9); Monocytes % 4.1 %; Neutrophils # 29.41 10^3/uL (1.8-7.7); Neutrophils % 82.4 %; Nucleated Red Blood Cells % 0 %; Platelet Count 273 10^3/cmm (157-399); Red Cell Distribution Width 13.5 % (12.1-15.1)
[2023-08-30 14:55] LABS: INR 1.29 (0.8-1.2)
[2023-08-30 14:56] LABS: Troponin(5th) Baseline 55 ng/L (0-15)
[2023-08-30 15:14] LABS: White Blood Count 35.71 10^3/uL (3.29-11.43)
[2023-08-30 15:16] LABS: Alanine Aminotransferase 12 U/L (0-41); Albumin Level 3.7 g/dL (3.5-5.2); Alkaline Phosphatase 122 U/L (40-130); Anion Gap 15.7 (5-19); Aspartate Amino Transferase 14 U/L (0-40); Blood Urea Nitrogen 31 mg/dL (8-23); Calcium 8.9 mg/dL (8.5-10.5); Carbon Dioxide 22 mmol/L (22-29); Chloride 103 mmol/L (98-107); Creatinine Clr Calc Pharmacy 48.1952; Globulin 2.4 g/dL (1.3-4.6); Glucose 137 mg/dL (65-115); NT Pro B Type Natriuretic Pept 1258 pg/mL (0-450); Osmolality Calculated 291 mOsm/kg (285-295); Potassium 4.7 mmol/L (3.5-5.1); Sodium 136 mmol/L (136-145); Total Bilirubin 0.9 mg/dL (0.15-1.2); Total Protein 6.1 g/dL (6.6-8.7)
[2023-08-30] MEDS: ipratropium-albuterol 3 mL Neb INHALATION ×2 (15:17→23:15)
--- NOTE | 2023-08-30 15:19 | ED_ITS ---
HPI - SOB/Dyspnea 2 General: Chief Complaint: Shortness of Breath/Dyspnea Stated Complaint: resp distress Time Seen by Provider: 08/30/23 14:19 History of Present Illness: HPI Narrative: Patient presents to the ER with worsening shortness of breath, fever, emesis, patient states he wears 2 L oxygen at home most of the time. Patient was feeling okay yesterday but started getting worsening shortness of breath fever chills and emesis secondary to coughing up so much phlegm this morning. Patient states the phlegm feels down deep in his lungs. Patient does have a history of COPD and is on multiple nebulizers. Patient also has a history of atrial fibrillation, CHF, patient is on warfarin. Patient has history of CLL Review of Systems 2 General: Reports: 10 or more systems reviewed and unremarkable except in HPI and below PFSH ED 2 PFSH: Medical History Bronchitis Type 2 diabetes mellitus without complications Delirium Frontal lobe dementia Word finding difficulty Displaced fracture of right femoral neck Hyperkalemia Closed fracture of right hip Depression Acute exacerbation of chronic obstructive airways disease CKD (chronic kidney disease), stage IV Viral upper respiratory infection Acute and chronic respiratory failure with hypoxia Atrial fibrillation with rapid ventricular response Pneumonia CLL (chronic lymphocytic leukemia) Lymphocytosis Bradycardia Long-term (current) use of anticoagulants, INR goal 2.0-3.0 Dyslipidemia Edema leg COPD (chronic obstructive pulmonary disease) CKD (chronic kidney disease) Pain in right knee GERD (gastroesophageal reflux disease) Atopic dermatitis, unspecified Gout, unspecified CAP (community acquired pneumonia) Orthopnea Unspecified atrial fibrillation Essential (primary) hypertension Pain in left finger(s) Surgical History History of left hip replacement Dr. Bennett - 11/2021 at [place], [place] History of prostate surgery History of total knee replacement History of cholecystectomy Family History Other Cancer Hypertension Lung disease Denies family history of Diabetes CAD (coronary artery disease) Clotting disorder Dementia Hyperlipidemia Psychiatric illness Chronic kidney disease (CKD) Suicide Anesthesia complication Bleeding disorder Stroke Social History Smoking and tobacco/nicotine status: former use of tobacco/nicotine Quit status (tobacco/nicotine): has quit using Year quit tobacco: 2010 - 1PPD x 50 Years Second hand smoke exposure: No Alcohol intake: current Substance/Drug Use: never Lives independently: Yes Household members: spouse Marital status: Current occupational status: retired Do you think of yourself as: Straight/Heterosexual Current gender identity: Male Physical Exam 2 Const: COMMON NORMALS: no acute distress, average body habitus, patient oriented x3, no limitations, healthy appearing, alert and well nourished HENMT: COMMON NORMALS: normocephalic, atraumatic, hearing grossly normal bilaterally, external ears normal, Normal external nose present, moist oral mucous membranes and oropharynx normal HEAD & SCALP: normocephalic and atraumatic NOSE: Normal external nose present EXTERNAL EAR: Yes external ears normal Neck/C-Spine: COMMON NORMALS: no JVD Chest: COMMONS NORMALS: normal inspection of the chest and normal palpation of entire chest wall Resp: COMMON NORMALS: normal respiratory effort, No retractions, No use of accessory muscles and clear to auscultation bilaterally AUSCULTATION: clear to auscultation bilaterally Cardio: COMMON NORMALS: no JVD, regular rate, regular rhythm, S1 normal heart sound present, S2 normal heart sound present, No gallops present (Cardio), No clicks present (Cardio), No murmurs present (Cardio) and No rub (Cardio) R ATE: regular rate RHYTHM: regular rhythm HEART SOUNDS: S1 normal heart sound present and S2 normal heart sound present GI: COMMON NORMALS: Normal to inspection, nondistended, normoactive bowel sounds present, Soft to palpation, non-tender, No hepatosplenomegaly present and no masses PALPATION: Yes Soft to palpation and Yes No hepatosplenomegaly present Neuro: COMMON NORMALS: patient oriented x3 SENSORIUM/ORIENTATION: Yes alert Course 2 Vital Signs: Vital signs: Vital Signs Temperature 98.4 F 08/30/23 20:27 Pulse Rate 71 08/30/23 20:27 Respiratory Rate 20 H 08/30/23 20:27 Blood Pressure 118/58 08/30/23 20:27 Pulse Oximetry 95 08/30/23 20:27 Oxygen Delivery Me thod Nasal Cannula 08/30/23 18:26 Oxygen Flow Rate 2 08/30/23 17:00 MDM - SOB/Dyspnea Medical Decision Making Patient presents to the ER with complaints of shortness of breath lab work was obtained as well as chest x-ray, chest x-ray showed bilateral pneumonia, patient does have CLL his white count is normally in the 20s however today was 35, blood cultures was obtained. Patient was given azithromycin and Rocephin in ER. Hospitalist was consulted who agreed to place patient inpatient for further evaluation and treatment. Differential Diagnosis Likely community acquired pneumonia; Unlikely acute exacerbation of chronic obstructive airways disease, congestive heart failure, asthma with exacerbation or pulmonary embolism Medical Records I reviewed the patient's medical records. Lab Data I reviewed the patient's lab results. 08/30/23 14:30 08/30/23 14:30 Labs/Radiology: Laboratory Results WBC 35.71 10^3/uL (3.29-11.43) H* 08/30/23 14:30 RBC 4.40 10^6/uL (3.85-5.65) 08/30/23 14:30 Hgb 13.30 g/dL (11.27-16.99) 08/30/23 14:30 Hct 41.0 % (37-53) 08/30/23 14:30 MCV 93.2 fl (82-101) 08/30/23 14:30 MCH 30.2 pg (27-33) 08/30/23 14:30 MCHC 32.4 g/dL (30-55) 08/30/23 14:30 RDW 13.5 % (12.1-15.1) 08/30/23 14:30 Plt Count 273 10^3/cmm (157-399) 08/30/23 14:30 MPV 8.8 fL (7.4-10.4) 08/30/23 14:30 Neut % (Auto) 82.4 % 08/30/23 14:30 Lymph % (Auto) 12.5 % 08/30/23 14:30 [place] % (Auto) 4.1 % 08/30/23 14:30 Eos % (Auto) 0.1 % 08/30/23 14:30 Baso % (Auto) 0.2 % 08/30/23 14:30 Neut # (Auto) 29.41 10^3/uL (1.8-7.7) H 08/30/23 14:30 Lymph # (Auto) 4.5 10^3/uL (0.8-4.8) 08/30/23 14:30 [place] # (Auto) 1.5 10^3/uL (0.2-0.9) H 08/30/23 14:30 Eos # (Auto) 0.1 10^3/uL (0.0-0.8) 08/30/23 14:30 Baso # (Auto) 0.1 10^3/uL (0.0-0.1) 08/30/23 14:30 Nucleated RBC % (auto) 0 % 08/30/23 14:30 Nucleated RBCs # 0.0 /100WBC 08/30/23 14:30 PT 16.60 SECONDS (12.1-14.9) H 08/30/23 14:30 INR 1.29 (0.8-1.2) H 08/30/23 14:30 Sodium 136 mmol/L (136-145) 08/30/23 14:30 Potassium 4.7 mmol/L (3.5-5.1) 08/30/23 14:30 Chloride 103 mmol/L (98-107) 08/30/23 14:30 Carbon Dioxide 22 mmol/L (22-29) 08/30/23 14:30 Anion Gap 15.7 (5-19) 08/30/23 14:30 BUN 31 mg/dL (8-23) H 08/30/23 14:30 Creatinine 1.3 mg/dL (0.7-1.2) H 08/30/23 14:30 GFR Calculation Not Reportable 08/30/23 14:30 Glucose 137 mg/dL (65-115) H 08/30/23 14:30 Calculated Osmolality 291 mOsm/kg (285-295) 08/30/23 14:30 Lactic Acid 1.1 mmol/L (0.5-2.2) 08/30/23 14:30 Calcium 8.9 mg/dL (8.5-10.5) 08/30/23 14:30 Total Bilirubin 0.9 mg/dL (0.15-1.2) 08/30/23 14:30 AST 14 U/L (0-40) 08/30/23 14:30 ALT 12 U/L (0-41) 08/30/23 14:30 Alkaline Phosphatase 122 U/L (40-130) 08/30/23 14:30 Troponin T Baseline 55 ng/L (0-15) H 08/30/23 14:30 Troponin T 120 Minute 54.90 ng/L (0-15) H 08/30/23 16:43 Delta Troponin T -0.10 ABS# (0-10) L 08/30/23 16:43 NT-Pro-B Natriuret Pep 1258 pg/mL (0-450) H 08/30/23 14:30 Total Protein 6.1 g/dL (6.6-8.7) L 08/30/23 14:30 Albumin 3.7 g/dL (3.5-5.2) 08/30/23 14:30 Globulin 2.4 g/dL (1.3-4.6) 08/30/23 14:30 Influenza Type A Ag Negative (Negative) 08/30/23 15:00 Influenza Type B Ag Negative (Negative) 08/30/23 15:00 SARS-CoV-2 Ag (Rapid) negative (Negative) 08/30/23 15:00 All radiology interpretation(s) finalized by discharge EKG Data EKG 1: I personally reviewed and interpreted this EKG as follows: EKG Interpretation Date: 08/30/23 EKG interpretation time: 14:13 Prior EKG tracings: not available for review Interpretation: EKG shows ventricular rate 109, [place] interval 143, QRS duration 84, QTc of 402, sinus tachycardia with occasional PVC, EKG 2: I personally reviewed and interpreted this EKG as follows: EKG Interpretation Date: 08/30/23 EKG interpretation time: 16:22 Prior EKG tracings: available for review Interpretation: Ventricular rate 91 bpm, [place] interval 150, QRS duration 86, QTc of 408, sinus rhythm with occasional PVC, Discharge Plan Discharge Patient Disposition: Admitted As Inpatient Admit Provider: Laurie Engel Clinical Impression: Bilateral pneumonia Condition: Stable Coding Level of Care Code ED Wearing Apparel Shaker for 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
[2023-08-30 15:37] LABS: SARS Covid-2 Antigen negative (Negative)
[2023-08-30 15:40] LABS: Lactic Sepsis W/Reflex 1.1 mmol/L (0.5-2.2)
[2023-08-30 15:53] LABS: Influenza A by IFA Negative (Negative); Influenza B by IFA Negative (Negative)
[2023-08-30] MEDS: cefTRIAXone 1,000 MG in sodium chloride 0.9% (plus) 50 ML 100 MG IV (16:06)
--- NOTE | 2023-08-30 16:20 | ECG_ITS ---
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 Measurements Intervals [place] Rate: 91 P: 67 AR: 150 QRS: -3 QRSD: 86 T: 70 QT: 359 QTc: 443 Interpretive Statements SINUS RHYTHM WITH OCCASIONAL SUPRAVENTRICULAR PREMATURE COMPLEXES POSSIBLE LEFT ATRIAL ENLARGEMENT [-0.1mV P-WAVE IN V1/V2] POSSIBLE RIGHT VENTRICULAR CONDUCTION DELAY [RSR (QR) IN V1/V2] SEPTAL MYOCARDIAL INFARCTION , OF INDETERMINATE AGE [40+ ms Q WAVE IN V1/V2] Compared to ECG 08/30/2023 14:13:44 Myocardial infarct finding now present Sinus tachycardia no longer present Indeterminate axis no longer present ST (T wave) deviation no longer present Electronically Signed On 08-30-2023 20:20:59 SHOPPER by Rudi Briscoe M.D. [id number]
[2023-08-30] MEDS: azithromycin 500 MG in sodium chloride 0.9% 250 ML 250 MG IV (16:32)
--- NOTE | 2023-08-30 17:49 | PC.NURSE ---
PT PLACED ON 2L O2 VIA NC D/T O2 DROPPING TO 88%. O2 IS NOW AT 96% VIA NC 2L.
--- NOTE | 2023-08-30 18:22 | PC.NURSE ---
This nurse assumed care of pt at 1820 from ER.
--- NOTE | 2023-08-30 20:49 | ECG_ITS ---
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 Measurements Intervals [place] Rate: 66 P: 74 [place]: 154 QRS: 31 QRSD: 86 T: 75 QT: 410 QTc: 431 Interpretive Statements SINUS RHYTHM POSSIBLE RIGHT VENTRICULAR CONDUCTION DELAY [RSR (QR) IN V1/V2] NONSPECIFIC T-WAVE ABNORMALITY Compared to ECG 08/30/2023 16:22:10 T-wave abnormality now present Myocardial infarct finding no longer present Electronically Signed On 08-31-2023 10:48:35 ADVANCED PRACTICE NURSE PSYCHOTHERAPIST by Cameron Lopez M.D. [id number]
--- NOTE | 2023-08-30 22:17 | P.HP_ITS ---
Providers/Chief Complaint 2 Admitting Physician: Laurie Engel MD Primary Care Provider: Autumn Pierre DO Chief Complaint: resp distress History of Present Illness Jesús Cole is a 83 yo man w/ CLL, HTN, HLD, DM2, Paroxysmal Afib on Warfarin, CKD, chronic hypoxic respiratory failure on 2L at night and prn, who presented to the ED on 08/30/2023 with complaints of worsening dyspnea. The patient states that he does not sleep a lot because The patient states that he has been having rapid breathing, increased dyspnea, and productive cough of clear sputum for the last 3-4 days, but did not want to come to the hospital despite his 's urging. He does not think that he slept last night. The patient woke up this AM, w/ dyspnea, copius clear productive sputum, and vomiting a lot of phlegm so his recommended that he come to the hospital. He endorses f/c, malaise, fatigue, myalgias, chest pain from coughing. Per chart review, he saw his Scaleman on 08/23/2023, who started him on a 10day course of Amoxicillin for bronchitis. In the ED, he was tachycardic to 134, and tachypneic to 22. His baseline WBC has ranged from 15.2-28.4 in the past, but it was 35.7. His lactic acid was 1. His EKG showed sinus tachycardia w/ no ST changes and a QTc of 456. His Trop T was mildly elevated to 55 but steadily decreased. He had an ProBNP of 1258. A CXR was done that showed new b/l basilar infiltrates and a RUL infiltrate that has nearly completely cleared. BCx were done, and he was given 1 g of ceftriaxone and 500 mg of azithromycin prior to admission. On admission, a UA was ordered. #Acute on chronic hypoxic respiratory failure: On 4L. #Sepsis: - Likely due to bilateral pneumonia. - F/u BCx, UA. Start #Gram negative b/l pneumonia: R/o aspiration - Given that he was on Amoxicillin, start Vanc, Cefepime and Azithromycin. #Acute COPD exacerbation: #Acute on chronic HFpEF: Will hold on giving Lasix today. Will start diuresis on 08/31/2023 #CLL: Continue to monitor #HTN: Monitor BP. #HLD: Resume as appropriate #DM2: Start daily Insulin glargine with low dose sliding scale insulin during the day and night. #Paroxysmal Afib on Warfarin: Start full dose lovenox. Monitor daily INRs. Resumed Diltiazem ER. #Gout: Resume Allopurinol. #Depression: Resume medication as appropriate #Chronic constipation: Laxative prn. #GERD: Resumed PPI #BPH: Resumed tamsulosin #Likely CKDIII: Monitor renal fxn DVT ppx: Full dose lovenox. GI ppx: PPI Review of Systems 2 Const: Reports: fever(s), chills, change in appetite (poor appetite) and malaise Eyes: Denies: change in vision ENMT: Reports: nasal discharge and other (positive sore throat, no dysphagia); Denies: odynophagia, ear or mastoid pain, ear discharge or nasal congestion Card: Reports: chest pain; Denies: palpitations or lightheadedness Resp: Reports: dyspnea, productive cough and wheezing GI: Reports: nausea, vomiting and constipation (chronic); Denies: abdominal pain or diarrhea : Denies: difficulty urinating, dysuria, urinary frequency, urinary urgency or hematuria Musc: Reports: other; Denies: joint pain Skin/Breast: Denies: rash, sores or new lesions Neuro: Reports: other (no LOC); Denies: headache(s), dizziness or seizure-like activity Psych: Denies: anxiety, depression, suicidal ideation or homicidal ideation Endo: Denies: cold intolerance or heat intolerance Fidencio/Lymph: Reports: easy bruising and easy bleeding All/Imm: Denies: food intolerance Medications/Allergies Home Medications Medication Instructions Recorded Confirmed Last Taken Type vit C 250 mg-vit E 90 mg-zinc 40 1 tab PO DAILY 08/19/21 08/30/23 08/30/23 History mg-copper 1 af-fwukhd-esvsaj capsule (PreserVision AREDS-2) olmesartan 5 mg tablet 5 mg PO QAM 01/02/23 08/30/23 08/30/23 History warfarin 2 mg tablet 2 mg PO DIRECTED #90 tabs 02/26/23 08/30/23 07/20/23 Rx revefenacin 175 mcg/3 mL solution 175 mcg (3 mL) inhalation DAILY 04/18/23 08/30/2308/30/24 Rx for nebulization (Rosie) COPD J44.9 #90 mL furosemide 20 mg tablet 10 mg PO QAM 05/17/23 08/30/23 08/30/23 History potassium chloride 10 mEq 10 meq PO DAILY PRN Edema 05/17/23 08/30/23 05/16/23 History tablet,extended release citalopram 20 mg tablet See Rx Instructions .Route 05/20/23 08/30/23 08/30/23 Rx .COMPLEX #90 tabs linagliptin 5 mg tablet (Tradjenta) 5 mg PO QPM #90 tabs 06/08/23 08/30/23 08/29/23 Rx citalopram 10 mg tablet See Rx Instructions .Route 06/11/23 08/30/23 08/30/23 Rx .COMPLEX #90 tabs formoterol fumarate 20 mcg/2 mL 2 ml inhalation BID #120 mL 06/25/23 08/30/23 08/30/23 Rx solution for nebulization (Perforomist) diltiazem HCl 240 mg capsule,24 240 mg PO DAILY 30 days #30 caps 07/19/23 08/30/23 08/30/23 Rx hr,extended release allopurinol 300 mg tablet 150 mg PO QAM 07/20/23 08/30/23 08/30/23 History tamsulosin 0.4 mg capsule 0.4 mg PO QPM 07/20/23 08/30/23 08/29/23 History warfarin 3 mg tablet 3 mg PO DAILY 07/20/23 08/30/23 08/30/23 History albuterol sulfate 90 mcg/actuation 2 puff inhalation Q4H PRN 07/27/23 08/30/23 08/30/23 Rx aerosol inhaler Shortness Of Breath #8.5 grams amoxicillin 250 mg capsule 250 mg PO Q8H #30 caps 08/23/23 08/30/23 08/30/23 Rx atorvastatin 20 mg tablet 20 mg PO DAILY 08/30/23 08/30/23 08/30/23 History calcium carbonate 500 mg calcium 500 mg PO BID 08/30/23 08/30/23 08/30/23 History (1,250 mg) chewable tablet (Calcium 500) Allergies Allergy/AdvReac Type Severity Reaction Status Date / Time No Known Allergies Allergy Verified 08/30/23 14:13 PFSH Acute 2 PFSH: Medical History (Updated 08/31/23 @ 16:35 by Laurie Engel MD) Acute and chronic respiratory failure with hypoxia CLL (chronic lymphocytic leukemia) GERD (gastroesophageal reflux disease) Bronchitis Type 2 diabetes mellitus without complications Delirium Frontal lobe dementia Word finding difficulty Displaced fracture of right femoral neck Hyperkalemia Closed fracture of right hip Depression Acute exacerbation of chronic obstructive airways disease CKD (chronic kidney disease), stage IV Viral upper respiratory infection Atrial fibrillation with rapid ventricular response Pneumonia Lymphocytosis Bradycardia Long-term (current) use of anticoagulants, INR goal 2.0-3.0 Dyslipidemia Edema leg COPD (chronic obstructive pulmonary disease) CKD (chronic kidney disease) Pain in right knee Atopic dermatitis, unspecified Gout, unspecified CAP (community acquired pneumonia) Orthopnea Unspecified atrial fibrillation Essential (primary) hypertension Pain in left finger(s) Surgical History (Updated 08/30/23 @ 23:08 by Laurie Engel MD) History of right hip replacement History of left hip replacement Dr. Bennett - 11/2021 at [place], [place] History of prostate surgery History of total knee replacement bilateral History of cholecystectomy Family History Other Cancer Hypertension Lung disease Denies family history of Diabetes CAD (coronary artery disease) Clotting disorder Dementia Hyperlipidemia Psychiatric illness Chronic kidney disease (CKD) Suicide Anesthesia complication Bleeding disorder Stroke Social History Smoking and tobacco/nicotine status: former use of tobacco/nicotine Quit status (tobacco/nicotine): has quit using Year quit tobacco: 2009 - 1PPD x 50 Years Second hand smoke exposure: No Alcohol intake: current Substance/Drug Use: never Lives independently: Yes Household members: spouse Marital status: Current occupational status: retired Do you think of yourself as: Straight/Heterosexual Current gender identity: Male Vitals/I&O/Wt Last Vital Signs Temp 98.4 F 08/30/23 20:27 Pulse 71 08/30/23 20:27 Resp 20 H 08/30/23 20:27 BP 118/58 08/30/23 20:27 Pulse Ox 95 08/30/23 20:27 O2 Del Method Nasal Cannula 08/30/23 18:26 O2 Flow Rate 2 08/30/23 17:00 08/30/23 08/30/23 08/30/23 06:59 14:59 22:59 Intake Total 300 / 300 Balance 300 / 300 Weight last 48 hrs Weight 81.647 kg Weight 81.647 kg Physical Exam 2 Const: GENERAL APPEARANCE: cooperative; not comfortable ORIENTATION/CONSCIOUSNESS: Yes awake, Yes oriented to person, Yes oriented to place and Yes oriented to time HENMT: HEAD & SCALP: normocephalic and atraumatic NOSE: Normal external nose present EXTERNAL EAR: Yes external ears normal MOUTH: Normal oral and palatal mucosa present THROAT: posterior oropharynx normal Eye: GENERAL EYE: appearance normal, both eyes and all related structures C ONJUNCTIVA: Yes conjunctivae normal PUPIL: Yes Equal, round and reactive pupils present EOM: No EOM abnormal Neck/C-Spine: GENERAL: Yes normal visual inspection and Yes trachea midline THYROID: Thyroid normal CAROTIDS: No bruit CERVICAL SPINE: Yes cervical ROM normal Lymph: LYMPHATIC: No lymphadenopathy Resp: OTHER: b/l expiratory wheezes in all lung hopson. crackles from bilateral to mid to lower lung hopson. Cardio: OTHER: RRR, no m/r/g/clicks. No carotid bruits b/l. 2+ radial and DP pulses appreciated b/l GI: OTHER: BS+, nontender, nondistended, no rigidity, no guarding, no rebound tenderness, no organomegaly. Extremity: GENERAL: No clubbing, No cyanosis and No edema Neuro: CRANIAL NERVES: Yes CN normal except as noted SPEECH: speech normal (but breathless) SENSORY EXAM: No sensory level loss detected MOTOR EXAM: 5/5 motor strength present throughout and Normal motor muscle tone present throughout Psych: APPEARANCE: Yes grossly normal ATTITUDE: Yes calm and Yes engaged ACTIVITY/MOTOR BEHAVIOR: Yes appropriate eye contact SPEECH: Yes normal speech (normal but breathless) MOOD & AFFECT: Yes euthymic mood THOUGHT PROCESS: Normal thought process present THOUGHT CONTENT: Yes Normal thought content present ATTENTION/CONCENTRATION: Yes attention grossly intact Skin: GENERAL SKIN EXAM: no rashes or lesions noted Data 08/31/23 04:58 08/31/23 04:58 Micro: Microbiology 08/30/23 15:27 Blood Culture - Preliminary Blood SPECIMEN COLLECTED 08/30/23 15:32 Blood Culture - Preliminary Blood SPECIMEN COLLECTED A&P Assessment and plan (1) Acute on chronic heart failure with preserved ejection fraction (HFpEF): (2) COPD with acute exacerbation: (3) Sepsis: Qualifiers: Sepsis type: sepsis due to unspecified organism Sepsis acute organ dysfunction status: without acute organ dysfunction Qualified Code(s): A41.9 - Sepsis, unspecified organism (4) Bilateral pneumonia: Qualifiers: Lung location: lower lobe of lung Pneumonia type: due to unspecified organism Qualified Code(s): J18.9 - Pneumonia, unspecified organism (5) Type 2 diabetes mellitus without complications: Qualifiers: Diabetes mellitus [facility] insulin use: without intermediate manager use Qualified Code(s): E11.9 - Type 2 diabetes mellitus without complications (6) Essential (primary) hypertension: (7) Mixed hyperlipidemia: (8) GERD (gastroesophageal reflux disease): Qualifiers: Esophagitis presence: esophagitis presence not specified Qualified Code(s): K21.9 - Gastro-esophageal reflux disease without esophagitis Plan Jesús Cole is a 83 yo man w/ CLL, HTN, HLD, DM2, Paroxysmal Afib on Warfarin, CKD, chronic hypoxic respiratory failure on 2L at night and prn, who presented to the ED on 08/30/2023 with complaints of worsening dyspnea and increased productive cough of clear sputum for the last 3-4 days. Per chart review, he saw his Scaleman on 08/23/2023, who started him on a 10day course of Amoxicillin for bronchitis. In the ED, he was tachycardic to 134, and tachypneic to 22. His baseline WBC has ranged from 15.2-28.4 in the past, but it was 35.7. His lactic acid was 1. His EKG showed sinus tachycardia w/ no ST changes and a QTc of 456. His Trop T was mildly elevated to 55 but steadily decreased. He had an ProBNP of 1258. A CXR was done that showed new b/l basilar infiltrates and a RUL infiltrate that has nearly completely cleared. BCx were done, and he was given 1 g of ceftriaxone and 500 mg of azithromycin prior to admission. On admission, a UA was ordered. #Acute on chronic hypoxic respiratory failure: On 4L. #Sepsis: - Likely due to bilateral pneumonia. - F/u BCx, UA. Start #Gram negative b/l pneumonia: R/o aspiration - Given that he was on Amoxicillin, start Vanc, Cefepime and Azithromycin. #Acute COPD exacerbation: #Acute on chronic HFpEF: Will hold on giving Lasix today. Will start diuresis on 08/31/2023 #CLL: Continue to monitor #HTN: Monitor BP. #HLD: Resume as appropriate #DM2: Start daily Insulin glargine with low dose sliding scale insulin during the day and night. #Paroxysmal Afib on Warfarin: Start full dose lovenox. Monitor daily INRs. Resumed Diltiazem ER. #Gout: Resume Allopurinol. #Depression: Resume medication as appropriate #Chronic constipation: Laxative prn. #GERD: Resumed PPI #BPH: Resumed tamsulosin #Likely CKDIII: Monitor renal fxn DVT ppx: Full dose lovenox. GI ppx: PPI Attestations 2 Medical Necessity Statement*: Patient will be hospitalized for greater than 2 midnights. Coding Level of Care Code Acute Code for Chg Fwd Diagnoses Acute on chronic heart failure with preserved ejection fraction (HFpEF) I50.33 COPD with acute exacerbation J44.1 Sepsis without acute organ dysfunction, due to unspecified organism A41.9 Sepsis type: sepsis due to unspecified organism Sepsis acute organ dysfunction status: without acute organ dysfunction Bilateral pneumonia J18.9 Lung location: lower lobe of lung Pneumonia type: due to unspecified organism Type 2 diabetes mellitus without complication, without long-term current use of insulin E11.9 Diabetes mellitus [facility] insulin use: without [facility] use Essential (primary) hypertension I10 Mixed hyperlipidemia E78.2 Gastroesophageal reflux disease, unspecified whether esophagitis present K21.9 Esophagitis presence: esophagitis presence not specified
[2023-08-31] VITALS (17 sets, daily range): BP systolic 113–137; BP diastolic 58–67; PULSE 62–76; RESP 16–22; TEMP 36.3–36.6; O2SAT 93–96
[2023-08-31] MEDS: enoxaparin 80 mg/0.8 mL Syringe SUBCUT ×3 (00:09→23:45)
[2023-08-31] MEDS: methylPREDNISolone sod succ 125 mg/2 mL INJ IVP (00:18)
[2023-08-31] MEDS: pantoprazole 40 mg SDV IVP (00:18)
[2023-08-31] MEDS: cefepime 1,000 MG in sodium chloride 0.9% (plus) 50 ML 100 MG IV ×4 (01:41→23:46)
[2023-08-31] MEDS: vancomycin 1,000 MG in sodium chloride 0.9% 250 ML 250 MG IV ×2 (02:09→18:39)
[2023-08-31] MEDS: ipratropium-albuterol 3 mL Neb INHALATION ×5 (03:06→23:28)
[2023-08-31 05:04] LABS: Basophils # 0.1 10^3/uL (0.0-0.1); Basophils % 0.2 %; Eosinophils % 0.1 %; Hematocrit 36.9 % (37-53); Lymphocytes # 4.6 10^3/uL (0.8-4.8); Lymphocytes % 19.1 %; Mean Corpuscular HGB Conc 32.2 g/dL (30-55); Mean Corpuscular Hemoglobin 30.5 pg (27-33); Mean Corpuscular Volume 94.6 fl (82-101); Mean Platelet Volume 8.7 fL (7.4-10.4); Monocytes # 0.2 10^3/uL (0.2-0.9); Monocytes % 0.7 %; Neutrophils # 18.97 10^3/uL (1.8-7.7); Neutrophils % 79.3 %; Nucleated Red Blood Cells % 0 %; Platelet Count 251 10^3/cmm (157-399); Red Cell Distribution Width 13.7 % (12.1-15.1); White Blood Count 23.92 10^3/uL (3.29-11.43)
[2023-08-31 05:16] LABS: INR 1.42 (0.8-1.2)
[2023-08-31 05:18] LABS: Partial Thromboplastin Time 49.1 SECONDS (23.9-36.7)
[2023-08-31 05:37] LABS: Alanine Aminotransferase 10 U/L (0-41); Albumin Level 3.3 g/dL (3.5-5.2); Alkaline Phosphatase 123 U/L (40-130); Aspartate Amino Transferase 11 U/L (0-40); Blood Urea Nitrogen 37 mg/dL (8-23); Calcium 8.9 mg/dL (8.5-10.5); Carbon Dioxide 22 mmol/L (22-29); Chloride 105 mmol/L (98-107); Creatinine Clr Calc Pharmacy 46.1649; Globulin 3.1 g/dL (1.3-4.6); Glucose 139 mg/dL (65-115); Magnesium 1.9 mg/dL (1.7-2.3); Osmolality Calculated 299 mOsm/kg (285-295); Sodium 139 mmol/L (136-145); Thyroid Stimulating Hormone 0.86 uIU/mL (0.27-4.20); Total Bilirubin 0.7 mg/dL (0.15-1.2); Total Protein 6.4 g/dL (6.6-8.7)
[2023-08-31] MEDS: pantoprazole DR 40 mg Tablet PO (06:09)
[2023-08-31] MEDS: allopurinol 300 mg Tablet 150 MG PO (06:09)
--- NOTE | 2023-08-31 06:42 | PC.PHAR ---
Pharmacy to dose Vancomycin dosed by Telepharmacy Vanco Initial Dosing Patient Information Sex 83 M/F Last Name FLORES AGE 83 years First Name GAGANDEEP Ht 70 inches : 1940 ABW 87.679 kg Location: [facility] IBW 68.5 kg If loading dose given: DW 87.679 kg Loading DOSE: 1000 mg SCr 1.4 mg/dl This Dose = 11.4 mg/kg CrCl 43.6 ml/min 1st dose Cmax: 14.9 mcg/ml Vd 65.88888 liters Time elapsed: 18.0 hrs Ke 0.041 hrs-1 Serum Conc. = 7.2 mcg/ml t1/2 17 hrs Hrs until 20 mcg/ml -6.2 hrs Hrs until 15 mcg/ml 0.8 hours Hrs until 10 mcg/ml 10.8 hours Dose Tau (Freq) Levels expected Standard 1000 18 Cmax 28.2 Targets 11.41 25.6 Cpeak 27.0 25 to 40 mg/kg hours Cmin 14.7 10 to 20
[2023-08-31 06:48] LABS: Glucose Point of Care 148 mg/dL (70-110)
[2023-08-31] MEDS: methylPREDNISolone sod succ 125 mg/2 mL INJ 60 MG IVP (08:41)
[2023-08-31] MEDS: FUROsemide 10 mg/mL SDV 4mL 40 MG IVP (08:42)
[2023-08-31] MEDS: azithromycin 500 MG in sodium chloride 0.9% 250 ML 250 MG IV (08:42)
[2023-08-31] MEDS: insulin lispro 100 unit/1 mL SUBCUT ×4 (08:43→21:18)
[2023-08-31] MEDS: insulin glargine 100 units/1 mL 10 UNIT SUBCUT (08:44)
[2023-08-31 10:24] LABS: Add Urine Culture? No; Add Urine Microscopic? YES; Bacteria Urine TRACE /hpf; Bilirubin Urine Neg (Negative); Blood Urine Neg (Negative); Glucose Urine UA Norm (Normal); Hyaline Casts Urine 0-4 /lpf; Ketones Urine 1+ (Negative); Leukocyte Esterase Urine Trace (Negative); Mucus Urine 2+ /hpf; Nitrate Urine Negative (Negative); Protein Urine 1+ (Negative); Squamous Epithelial Cell Urine 0-4 /hpf (0-5); Urine Appearance Clear (CLEAR); Urine Color Yellow (Yellow); Urobilinogen Urine Norm (Negative); WBC Urine 0-4 /hpf (0-5); pH Urine 5 (5-7)
[2023-08-31 11:25] LABS: Glucose Point of Care 295 mg/dL (70-110)
--- NOTE | 2023-08-31 16:36 | P.PN_ITS ---
Subjective 2 Subjective: Patient states that his coughing improved today. He endorses dyspnea, but it is less than today. He was weaned to 2L O2 NC today. He denies CP, palpitations, dizziness, GI or sxs. Vitals/I&O/Wt Last Vital Signs Temp 97.4 F L 08/31/23 16:13 Pulse 70 08/31/23 16:13 Resp 18 08/31/23 16:13 BP 127/65 08/31/23 16:13 Pulse Ox 95 08/31/23 16:13 O2 Del Method Nasal Cannula 08/31/23 16:13 O2 Flow Rate 2 08/31/23 15:25 08/31/23 08/31/23 08/31/23 06:59 14:59 22:59 Intake Total 300 / 1500 540 / 540 Output Total 400 / 400 Balance 300 / 1500 140 / 140 Weight last 48 hrs Weight 87.634 kg Weight 87.679 kg Weight 81.647 kg Weight 81.647 kg Physical Exam 2 Const: GENERAL APPEARANCE: cooperative; not comfortable ORIENTATION/CONSCIOUSNESS: Yes awake, Yes oriented to person, Yes oriented to place and Yes oriented to time HENMT: COMMON NORMALS: normocephalic, atraumatic, external ears normal and Normal external nose present HEAD & SCALP: normocephalic and atraumatic N OSE: Normal external nose present EXTERNAL EAR: Yes external ears normal M OUTH: Normal oral and palatal mucosa present THROAT: posterior oropharynx normal Eye: COMMON NORMALS: Equal, round and reactive pupils present and conjunctivae normal GENERAL EYE: appearance normal, both eyes and all related structures CONJUNCTIVA: Yes conjunctivae normal PUPIL: Yes Equal, round and reactive pupils present EOM: No EOM abnormal Neck/C-Spine: COMMON NORMALS: Thyroid normal GENERAL: Yes normal visual inspection and Yes trachea midline THYROID: Thyroid normal CAROTIDS: No bruit CERVICAL SPINE: Yes cervical ROM normal Lymph: LYMPHATIC: No lymphadenopathy Resp: OTHER: he no longer had b/l expiratory wheezes in all lung hopson but he still has crackles from bilateral to mid to lower lung hopson. Cardio: OTHER: RRR, no m/r/g/clicks. No carotid bruits b/l. 2+ radial and DP pulses appreciated b/l GI: OTHER: BS+, nontender, nondistended, no rigidity, no guarding, no rebound tenderness, no organomegaly. Extremity: GENERAL: No clubbing, No cyanosis and No edema Neuro: SENSORIUM/ORIENTATION: Yes oriented to person, Yes oriented to place and Yes oriented to time CRANIAL NERVES: Yes CN normal except as noted S PEECH: speech normal (but breathless) SENSORY EXAM: No sensory level loss detected MOTOR EXAM: 5/5 motor strength present throughout and Normal motor muscle tone present throughout Psych: COMMON NORMALS: Normal thought process present and speech normal (normal but breathless) APPEARANCE: Yes grossly normal ATTITUDE: Yes calm and Yes engaged ACTIVITY/MOTOR BEHAVIOR: Yes appropriate eye contact S PEECH: Yes normal speech (normal but breathless) MOOD & AFFECT: Yes euthymic mood THOUGHT PROCESS: Normal thought process present THOUGHT CONTENT: Yes Normal thought content present ATTENTION/CONCENTRATION: Yes attention grossly intact Skin: COMMON NORMALS: no rashes or lesions noted GENERAL SKIN EXAM: no rashes or lesions noted Data 09/01/23 02:48 09/01/23 02:48 Micro: Microbiology 08/30/23 15:27 Blood Culture - Preliminary Blood NEGATIVE TO DATE 08/30/23 15:32 Blood Culture - Preliminary Blood NEGATIVE TO DATE A&P Assessment and plan (1) Acute on chronic heart failure with preserved ejection fraction (HFpEF): (2) COPD with acute exacerbation: (3) Sepsis: Qualifiers: Sepsis acute organ dysfunction status: without acute organ dysfunction Sepsis type: sepsis due to unspecified organism Qualified Code(s): A41.9 - Sepsis, unspecified organism (4) Bilateral pneumonia: Qualifiers: Lung location: lower lobe of lung Pneumonia type: due to unspecified organism Qualified Code(s): J18.9 - Pneumonia, unspecified organism (5) Type 2 diabetes mellitus without complications: Qualifiers: Diabetes mellitus group home insulin use: without terminal superintendent use Qualified Code(s): E11.9 - Type 2 diabetes mellitus without complications (6) Essential (primary) hypertension: (7) Mixed hyperlipidemia: (8) GERD (gastroesophageal reflux disease): Qualifiers: Esophagitis presence: esophagitis presence not specified Qualified Code(s): K21.9 - Gastro-esophageal reflux disease without esophagitis Plan Jesús Cole is a 83 yo man w/ CLL, HTN, HLD, DM2, Paroxysmal Afib on Warfarin, CKD, chronic hypoxic respiratory failure on 2L at night and prn, who presented to the ED on 08/30/2023 with complaints of worsening dyspnea and increased productive cough of clear sputum for the last 3-4 days. Per chart review, he saw his Country Printer Apprentice on 08/23/2023, who started him on a 10day course of Amoxicillin for bronchitis. In the ED, he was tachycardic to 134, and tachypneic to 22. His baseline WBC has ranged from 15.2-28.4 in the past, but it was 35.7. His lactic acid was 1. His EKG showed sinus tachycardia w/ no ST changes and a QTc of 456. His Trop T was mildly elevated to 55 but steadily decreased. He had an ProBNP of 1258. A CXR was done that showed new b/l basilar infiltrates and a RUL infiltrate that has nearly completely cleared. BCx were done, and he was given 1 g of ceftriaxone and 500 mg of azithromycin prior to admission. On admission, a UA was ordered. #Acute on chronic hypoxic respiratory failure: On 4L. #Sepsis: - Likely due to bilateral pneumonia. - F/u BCx, UA. #Gram negative b/l pneumonia: R/o aspiration - Given that he was on Amoxicillin shortly before admission started Vanc, Cefepime and Azithromycin. #Acute COPD exacerbation: #Acute on chronic HFpEF: Held on giving Lasix on admission - Gave Lasix 40mg IVP and albumin on 08/31/2023. Ordered another dose for 09/01/2023. Will start diuresis on 08/31/2023 #CLL: Continue to monitor #HTN: Monitor BP. #HLD: Resume as appropriate #Steroid induced hyperglycemia: Increase Insulin glargine. #DM2: On Insulin glargine with low dose sliding scale insulin during the day and night. #Paroxysmal Afib on Warfarin: Start full dose lovenox. Monitor daily INRs. Resumed Diltiazem ER. #Gout: Resume Allopurinol. #Depression: Resume medication as appropriate #Chronic constipation: Laxative prn. #GERD: Resumed PPI #BPH: Resumed tamsulosin #Likely CKDIII: Monitor renal fxn DVT ppx: Full dose lovenox. GI ppx: PPI Attestations 2 Medical Necessity Statement*: Patient remains hospitalized for bilateral pneumonia, HFpEF, and acute copd exacerbation. Coding Level of Care Code 67320 Diagnoses Acute on chronic heart failure with preserved ejection fraction (HFpEF) I50.33 COPD with acute exacerbation J44.1 Sepsis without acute organ dysfunction, due to unspecified organism A41.9 Sepsis acute organ dysfunction status: without acute organ dysfunction Sepsis type: sepsis due to unspecified organism Bilateral pneumonia J18.9 Lung location: lower lobe of lung Pneumonia type: due to unspecified organism Type 2 diabetes mellitus without complication, without long-term current use of insulin E11.9 Diabetes mellitus terminal superintendent insulin use: without terminal superintendent use Essential (primary) hypertension I10 Mixed hyperlipidemia E78.2 Gastroesophageal reflux disease, unspecified whether esophagitis present K21.9 Esophagitis presence: esophagitis presence not specified
[2023-08-31 16:45] LABS: Glucose Point of Care 257 mg/dL (70-110)
[2023-08-31] MEDS: dilTIAZem ER (24HR) 240 mg Capsule PO (16:59)
[2023-08-31] MEDS: tamsulosin 0.4 mg Capsule 0.400000000000000022 MG PO (17:28)
[2023-08-31 20:50] LABS: Glucose Point of Care 355 mg/dL (70-110)
[2023-08-31] MEDS: insulin glargine 100 units/1 mL 15 UNIT SUBCUT (23:45)
[2023-09-01] VITALS (17 sets, daily range): BP systolic 108–141; BP diastolic 53–63; PULSE 63–104; RESP 17–19; TEMP 36.4–36.6; O2SAT 92–96
[2023-09-01] MEDS: ipratropium-albuterol 3 mL Neb INHALATION ×5 (03:11→19:26)
[2023-09-01 03:15] LABS: Basophils # 0.1 10^3/uL (0.0-0.1); Basophils % 0.2 %; Hematocrit 34.2 % (37-53); Lymphocytes # 3.5 10^3/uL (0.8-4.8); Lymphocytes % 12.5 %; Mean Corpuscular HGB Conc 32.5 g/dL (30-55); Mean Corpuscular Hemoglobin 30.8 pg (27-33); Mean Platelet Volume 9.1 fL (7.4-10.4); Monocytes # 0.7 10^3/uL (0.2-0.9); Monocytes % 2.3 %; Neutrophils # 23.47 10^3/uL (1.8-7.7); Nucleated Red Blood Cells % 0 %; Platelet Count 239 10^3/cmm (157-399); Red Cell Distribution Width 13.4 % (12.1-15.1); White Blood Count 27.95 10^3/uL (3.29-11.43)
[2023-09-01 03:28] LABS: INR 1.71 (0.8-1.2)
[2023-09-01 03:29] LABS: Partial Thromboplastin Time 60.5 SECONDS (23.9-36.7)
[2023-09-01 03:36] LABS: Glucose 348 mg/dL (65-115)
[2023-09-01 03:42] LABS: Alanine Aminotransferase 10 U/L (0-41); Albumin Level 3.3 g/dL (3.5-5.2); Alkaline Phosphatase 111 U/L (40-130); Aspartate Amino Transferase 11 U/L (0-40); Blood Urea Nitrogen 57 mg/dL (8-23); Calcium 8.7 mg/dL (8.5-10.5); Carbon Dioxide 21 mmol/L (22-29); Chloride 106 mmol/L (98-107); Creatinine Clr Calc Pharmacy 38.0095; Globulin 2.1 g/dL (1.3-4.6); Glucose 340 mg/dL (65-115); Magnesium 1.9 mg/dL (1.7-2.3); Osmolality Calculated 319 mOsm/kg (285-295); Phosphorus 2.3 mg/dL (2.5-4.5); Sodium 140 mmol/L (136-145); Total Bilirubin 0.2 mg/dL (0.15-1.2); Total Protein 5.4 g/dL (6.6-8.7)
[2023-09-01] MEDS: allopurinol 300 mg Tablet 150 MG PO (06:08)
[2023-09-01] MEDS: pantoprazole DR 40 mg Tablet PO (06:08)
[2023-09-01 06:49] LABS: Glucose Point of Care 263 mg/dL (70-110)
[2023-09-01] MEDS: insulin lispro 100 unit/1 mL SUBCUT ×4 (07:49→21:51)
[2023-09-01] MEDS: azithromycin 500 MG in sodium chloride 0.9% 250 ML 250 MG IV (08:14)
[2023-09-01] MEDS: cefepime 1,000 MG in sodium chloride 0.9% (plus) 50 ML 100 MG IV ×2 (08:14→17:23)
[2023-09-01] MEDS: methylPREDNISolone sod succ 125 mg/2 mL INJ 60 MG IVP (08:15)
[2023-09-01] MEDS: FUROsemide 10 mg/mL SDV 10mL 60 MG IVP (08:15)
[2023-09-01] MEDS: metOLazone 5 MG Tablet PO (08:16)
[2023-09-01] MEDS: atorvastatin 40 mg Tablet PO (08:16)
[2023-09-01] MEDS: dilTIAZem ER (24HR) 240 mg Capsule PO (08:16)
[2023-09-01] MEDS: insulin glargine 100 units/1 mL 20 UNIT SUBCUT (08:17)
[2023-09-01 11:02] LABS: Glucose Point of Care 282 mg/dL (70-110)
[2023-09-01] MEDS: enoxaparin 80 mg/0.8 mL Syringe SUBCUT (12:24)
[2023-09-01] MEDS: insulin glargine 100 units/1 mL 15 UNIT SUBCUT (13:25)
[2023-09-01] MEDS: vancomycin 1,000 MG in sodium chloride 0.9% 250 ML 250 MG IV (13:26)
--- NOTE | 2023-09-01 14:59 | P.PN_ITS ---
Subjective 2 Subjective: His BG is uncontrolled. He is developing an ZONIA, but he has already received Lasix 40mg IVP x 1. The patient's is at bedside. She states she brought the patient to the hospital when she noticed that he had a Tmax (forehead) of 100.7F. The patient states that he has urinated 3 times today, and per the patient and his . Patient states that his coughing improved today. He endorses dyspnea, but it is less than today. He was weaned to 2L O2 NC today. He had a BM yesterday, but not today. He tends to go every other day. He denies fever, chills, CP, palpitations, dizziness, GI or sxs. The patient's states that the patient's Left leg started swelling more than the R. leg intermittently in the last 3 months, so much so that she would increase the patient's lasix intermittently when his L. leg swells more than usual. The patient is lying in bed. He is weaned off O2 by the nurse today, but he is using his shoulder for respirations and he has abdominal respirations although he states that he is not uncomfortable and he does not feel as if he is working hard to breathe. After being off O2 for 1.5hrs, RT came to give him a breathing treatment. She checked his pulse Ox and it was 93% on RA. Medications: Reviewed: Yes Vitals/I&O/Wt Last Vital Signs Temp 97.7 F 09/01/23 12:00 Pulse 74 09/01/23 13:00 Resp 18 09/01/23 12:50 BP 108/63 09/01/23 12:00 Pulse Ox 94 09/01/23 12:50 O2 Del Method Room Air 09/01/23 12:50 O2 Flow Rate 2 09/01/23 07:43 08/31/23 09/01/23 09/01/23 22:59 06:59 14:59 Intake Total 1020 / 1560 50 / 1610 910 / 910 Output Total 400 / 800 700 / 1500 475 / 475 Balance 620 / 760 -650 / 110 435 / 435 Weight last 48 hrs Weight 87.679 kg Weight 87.634 kg Weight 87.679 kg Weight 81.647 kg Physical Exam 2 Const: GENERAL APPEARANCE: cooperative; not comfortable ORIENTATION/CONSCIOUSNESS: Yes awake, Yes oriented to person, Yes oriented to place and Yes oriented to time HENMT: COMMON NORMALS: normocephalic, atraumatic, external ears normal and Normal external nose present HEAD & SCALP: normocephalic and atraumatic N OSE: Normal external nose present EXTERNAL EAR: Yes external ears normal M OUTH: Normal oral and palatal mucosa present THROAT: posterior oropharynx normal Eye: COMMON NORMALS: Equal, round and reactive pupils present and conjunctivae normal GENERAL EYE: appearance normal, both eyes and all related structures CONJUNCTIVA: Yes conjunctivae normal PUPIL: Yes Equal, round and reactive pupils present EOM: No EOM abnormal Neck/C-Spine: COMMON NORMALS: Thyroid normal GENERAL: Yes normal visual inspection and Yes trachea midline THYROID: Thyroid normal CAROTIDS: No bruit CERVICAL SPINE: Yes cervical ROM normal Lymph: LYMPHATIC: No lymphadenopathy Resp: OTHER: He has crackles from mid to lower lung hopson on the L. lung hopson and R. Cardio: OTHER: RRR, no m/r/g/clicks. No carotid bruits b/l. 2+ radial and DP pulses appreciated b/l GI: OTHER: BS+, nontender, nondistended, no rigidity, no guarding, no rebound tenderness, no organomegaly. Extremity: GENERAL: No clubbing, No cyanosis and No edema Neuro: SENSORIUM/ORIENTATION: Yes oriented to person, Yes oriented to place and Yes oriented to time CRANIAL NERVES: Yes CN normal except as noted S PEECH: speech normal (but breathless) SENSORY EXAM: No sensory level loss detected MOTOR EXAM: 5/5 motor strength present throughout and Normal motor muscle tone present throughout Psych: COMMON NORMALS: Normal thought process present and speech normal (normal but breathless) APPEARANCE: Yes grossly normal ATTITUDE: Yes calm and Yes engaged ACTIVITY/MOTOR BEHAVIOR: Yes appropriate eye contact S PEECH: Yes normal speech (normal but breathless) MOOD & AFFECT: Yes euthymic mood THOUGHT PROCESS: Normal thought process present THOUGHT CONTENT: Yes Normal thought content present ATTENTION/CONCENTRATION: Yes attention grossly intact Skin: COMMON NORMALS: no rashes or lesions noted GENERAL SKIN EXAM: no rashes or lesions noted Data 09/02/23 03:19 09/02/23 03:19 Micro: Microbiology 08/31/23 09:50 Urine Culture - Preliminary Urine,Clean Catch 08/30/23 15:27 Blood Culture - Preliminary Blood NEGATIVE TO DATE 08/30/23 15:32 Blood Culture - Preliminary Blood NEGATIVE TO DATE A&P Assessment and plan (1) Acute on chronic heart failure with preserved ejection fraction (HFpEF): (2) COPD with acute exacerbation: (3) Sepsis: Qualifiers: Sepsis acute organ dysfunction status: without acute organ dysfunction Sepsis type: sepsis due to unspecified organism Qualified Code(s): A41.9 - Sepsis, unspecified organism (4) Bilateral pneumonia: Qualifiers: Lung location: lower lobe of lung Pneumonia type: due to unspecified organism Qualified Code(s): J18.9 - Pneumonia, unspecified organism (5) Type 2 diabetes mellitus without complications: Qualifiers: Diabetes mellitus intermodal dispatcher insulin use: without penitentiary use Qualified Code(s): E11.9 - Type 2 diabetes mellitus without complications (6) Essential (primary) hypertension: (7) Mixed hyperlipidemia: (8) GERD (gastroesophageal reflux disease): Qualifiers: Esophagitis presence: esophagitis presence not specified Qualified Code(s): K21.9 - Gastro-esophageal reflux disease without esophagitis Plan Jesús Cole is a 83 yo man w/ CLL, HTN, HLD, DM2, Paroxysmal Afib on Warfarin, CKD, chronic hypoxic respiratory failure on 2L at night and prn, who presented to the ED on 08/30/2023 with complaints of worsening dyspnea and increased productive cough of clear sputum for the last 3-4 days. Per chart review, he saw his Audit Clerks Supervisor on 08/23/2023, who started him on a 10day course of Amoxicillin for bronchitis. In the ED, he was tachycardic to 134, and tachypneic to 22. His baseline WBC has ranged from 15.2-28.4 in the past, but it was 35.7. His lactic acid was 1. His EKG showed sinus tachycardia w/ no ST changes and a QTc of 456. His Trop T was mildly elevated to 55 but steadily decreased. He had an ProBNP of 1258. A CXR was done that showed new b/l basilar infiltrates and a RUL infiltrate that has nearly completely cleared. BCx were done, and he was given 1 g of ceftriaxone and 500 mg of azithromycin prior to admission. On admission, a UA was ordered. #Acute on chronic hypoxic respiratory failure: On 4L. #Sepsis: - Likely due to bilateral pneumonia. - F/u BCx, UA. #Gram negative b/l pneumonia: R/o aspiration - Given that he was on Amoxicillin shortly before admission started Vanc, Cefepime and Azithromycin. #Acute COPD exacerbation: #Acute on chronic HFpEF: Held on giving Lasix on admission - Gave Lasix 40mg IVP and albumin on 08/31/2023. Ordered another dose for 09/01/2023. Will start diuresis on 08/31/2023 #ZONIA on CKD: Monitor renal function. #Steroid induced hyperglycemia: Increase Insulin glargine. #DM2: On Insulin glargine with low dose sliding scale insulin during the day and night. #CLL: Continue to monitor #HTN: Monitor BP. #HLD: Resume as appropriate #Paroxysmal Afib on Warfarin: Start full dose lovenox. Monitor daily INRs. Resumed Diltiazem ER. #Gout: Resume Allopurinol. #Depression: Resume medication as appropriate #Chronic constipation: Laxative prn. #GERD: Resumed PPI #BPH: Resumed tamsulosin #Likely CKDIII: Monitor renal fxn DVT ppx: Full dose lovenox. GI ppx: PPI Attestations 2 Medical Necessity Statement*: Patient remains hospitalized for respiratory failure, b/l pneumonia, ZONIA Coding Level of Care Code 70723 Diagnoses Acute on chronic heart failure with preserved ejection fraction (HFpEF) I50.33 COPD with acute exacerbation J44.1 Sepsis without acute organ dysfunction, due to unspecified organism A41.9 Sepsis acute organ dysfunction status: without acute organ dysfunction Sepsis type: sepsis due to unspecified organism Bilateral pneumonia J18.9 Lung location: lower lobe of lung Pneumonia type: due to unspecified organism Type 2 diabetes mellitus without complication, without long-term current use of insulin E11.9 Diabetes mellitus intermodal dispatcher insulin use: without intermodal dispatcher use Essential (primary) hypertension I10 Mixed hyperlipidemia E78.2 Gastroesophageal reflux disease, unspecified whether esophagitis present K21.9 Esophagitis presence: esophagitis presence not specified
--- NOTE | 2023-09-01 15:22 | USR_ITS ---
PROCEDURE INFORMATION: Exam: US Duplex Lower Extremity Veins, Bilateral Exam date and time: 09/01/2023 5:29 PM Age: 83 years old Clinical indication: Edema, localized; Lower extremity, bilateral; Additional info: B/l l>r lower extremity swelling TECHNIQUE: Imaging protocol: Real-time duplex ultrasound of the bilateral extremities with 2-D damon scale, color Doppler flow and spectral waveform analysis including responses to compression and other maneuvers (when performed) with image documentation. Complete exam focused on the lower extremity veins. COMPARISON: CT hip LT wo con* [id number] 11/22/2021 2:32 AM FINDINGS: Right deep veins: Unremarkable. The common femoral, femoral, proximal profunda femoral, popliteal, posterior tibial and peroneal veins are patent without thrombus. Normal Doppler waveforms. Normal compressibility and/or augmentation response. Left deep veins: Unremarkable. The common femoral, femoral, proximal profunda femoral, popliteal, posterior tibial and peroneal veins are patent without thrombus. Normal Doppler waveforms. Normal compressibility and/or augmentation response. Superficial veins: Greater saphenous veins at the saphenofemoral junctions are patent bilaterally without thrombus. Soft tissues: Unremarkable. US/[place] [id number] IMPRESSION: No sonographic evidence of deep vein thrombosis.
[2023-09-01 16:21] LABS: Lactate (Lactic Acid level) 3.6 mmol/L (0.5-2.2)
[2023-09-01 17:10] LABS: Glucose Point of Care 284 mg/dL (70-110)
[2023-09-01] MEDS: tamsulosin 0.4 mg Capsule 0.400000000000000022 MG PO (17:21)
[2023-09-01] MEDS: albumin 25 G/100 ML BAG 60 G IV (20:35)
--- NOTE | 2023-09-01 21:43 | PC.NURSE ---
[employer] machine not downloading. Patient's blood sugar for 9 pm was 242. Giving patient 3 units of insulin.
[2023-09-01 23:47] LABS: Glucose Point of Care 242 mg/dL (70-110)
[2023-09-02] VITALS (17 sets, daily range): BP systolic 119–135; BP diastolic 61–71; PULSE 57–98; RESP 16–24; TEMP 36.4–36.9; O2SAT 92–96
[2023-09-02] MEDS: ipratropium-albuterol 3 mL Neb INHALATION ×5 (00:06→20:07)
[2023-09-02] MEDS: enoxaparin 80 mg/0.8 mL Syringe SUBCUT ×2 (00:19→11:08)
[2023-09-02] MEDS: cefepime 1,000 MG in sodium chloride 0.9% (plus) 50 ML 100 MG IV ×3 (00:20→16:59)
[2023-09-02] MEDS: insulin glargine 100 units/1 mL 7 UNIT SUBCUT (00:54)
[2023-09-02 03:35] LABS: Basophils % 0.1 %; Hematocrit 32.7 % (37-53); Lymphocytes % 10.3 %; Mean Corpuscular HGB Conc 32.4 g/dL (30-55); Mean Corpuscular Hemoglobin 30.3 pg (27-33); Mean Corpuscular Volume 93.4 fl (82-101); Mean Platelet Volume 9.1 fL (7.4-10.4); Monocytes # 0.8 10^3/uL (0.2-0.9); Monocytes % 2.9 %; Neutrophils % 85.4 %; Nucleated Red Blood Cells % 0 %; Platelet Count 252 10^3/cmm (157-399); Red Cell Distribution Width 13.6 % (12.1-15.1); White Blood Count 28.77 10^3/uL (3.29-11.43)
[2023-09-02 03:44] LABS: INR 1.55 (0.8-1.2)
[2023-09-02 03:45] LABS: Partial Thromboplastin Time 47.3 SECONDS (23.9-36.7)
[2023-09-02 03:57] LABS: Alanine Aminotransferase 11 U/L (0-41); Albumin Level 3.6 g/dL (3.5-5.2); Alkaline Phosphatase 96 U/L (40-130); Anion Gap 13.8 (5-19); Aspartate Amino Transferase 11 U/L (0-40); Blood Urea Nitrogen 68 mg/dL (8-23); Calcium 9.4 mg/dL (8.5-10.5); Carbon Dioxide 23 mmol/L (22-29); Chloride 102 mmol/L (98-107); Creatinine Clr Calc Pharmacy 30.7766; Globulin 2.5 g/dL (1.3-4.6); Glucose 208 mg/dL (65-115); Magnesium 1.8 mg/dL (1.7-2.3); Osmolality Calculated 306 mOsm/kg (285-295); Phosphorus 3.1 mg/dL (2.5-4.5); Potassium 3.8 mmol/L (3.5-5.1); Sodium 135 mmol/L (136-145); Total Bilirubin 0.2 mg/dL (0.15-1.2); Total Protein 6.1 g/dL (6.6-8.7)
[2023-09-02 06:30] LABS: Vancomycin Trough 21.6 ug/mL (10-15)
[2023-09-02 06:54] LABS: Glucose Point of Care 167 mg/dL (70-110)
[2023-09-02] MEDS: allopurinol 300 mg Tablet 150 MG PO (06:54)
[2023-09-02] MEDS: pantoprazole DR 40 mg Tablet PO (06:54)
--- NOTE | 2023-09-02 07:36 | PC.PHAR ---
Pharmacy to Dose Vancomycin, high trough requested Trough resulted in 21.6 with 1 gm q18h, will change dose to 1250mg q24h Use this page to adjust dose, Tinf, or tau when only a TROUGH is taken. Junior Business Analyst VANCOMYCIN or AMINOGLYCOSIDE: VANCO mg/kg Last Name Kelsey Calculated Dose(mg) 1000 11.29 First Name Jesús LEON Tinf (hrs) 1 hrs : 42 Tau=freq (hrs) 18 hrs Location: [facility] Cmax (calculated) 36.1 mcg/ml Cpeak (calculated) 35.1 mcg/ml Sex (M/F) M Cmin (trough): 21.6 mcg/ml AGE (yrs) 83 Calculated Vd: 66.4 liters Ht (inches) 70.0 Calculated Ke: 0.029 hrs-1 ABW (Kg) 88.5 Calculated T1/2: 23.58 hrs IBW (Kg) 73.0 mg/kg DW (Kg) 88.5 NEW Dose (mg) 1250 14.12 NEW Tinf (hrs) 1 NEW Tau (hrs) 24 VANCO GENT TARGETS Expected Cmax: 36.7 Targets Standard Dosing High Dose Expected Cpeak: 35.6 25 to 40 6 - 12 mcg/ml 20 - 24 mcg/ml Expected Cmin: 18.6 10 to 20 0.5 - 2 mcg/ml < 1 mcg/ml WHEN DO I GIVE THE NEXT DOSE? When will the Blood Conc. Be Equal to my New Expected Cmin? If Dose was HELD If Dose was GIVEN Give Next Dose In: (From time trough drawn) 5 hrs 23 hrs Where will the Conc. Be if I wait : 12.7 mcg/ml 21.6 mcg/ml 18 hrs
[2023-09-02] MEDS: insulin glargine 100 units/1 mL 40 UNIT SUBCUT (08:27)
[2023-09-02] MEDS: azithromycin 500 MG in sodium chloride 0.9% 250 ML 250 MG IV (08:27)
[2023-09-02] MEDS: atorvastatin 40 mg Tablet PO (08:27)
[2023-09-02] MEDS: dilTIAZem ER (24HR) 240 mg Capsule PO (08:27)
[2023-09-02] MEDS: insulin lispro 100 unit/1 mL SUBCUT ×4 (08:29→21:06)
[2023-09-02] MEDS: methylPREDNISolone sod succ 125 mg/2 mL INJ 60 MG IVP (08:49)
[2023-09-02 10:39] LABS: Glucose Point of Care 285 mg/dL (70-110)
[2023-09-02] MEDS: vancomycin 1,250 MG/250 ML PIGGYBACK 250 MG IV (11:08)
--- NOTE | 2023-09-02 13:45 | P.PN_ITS ---
Subjective 2 Subjective: He is back on 2.5L. Family and friends were visiting when he was seen. He is still visibly dyspneic and using accessory muscles, but less so compared to the previous day. Per , putting on his clothes today made him tired. He complains did not sleep well. He denies fever, chills, CP, palpitations, dizziness, GI or sxs Medications: Reviewed: Yes Vitals/I&O/Wt Last Vital Signs Temp 97.7 F 09/02/23 11:50 Pulse 75 09/02/23 11:50 Resp 18 09/02/23 11:50 BP 125/71 09/02/23 11:50 Pulse Ox 92 09/02/23 11:50 O2 Del Method Room Air 09/02/23 11:50 O2 Flow Rate 2.5 09/02/23 08:00 09/01/23 09/02/23 09/02/23 22:59 06:59 14:59 Intake Total 390 / 1300 50 / 1350 780 / 780 Output Total 350 / 825 300 / 1125 Balance 40 / 475 -250 / 225 780 / 780 Weight last 48 hrs Weight 88.536 kg Weight 87.679 kg Physical Exam 2 Const: GENERAL APPEARANCE: cooperative; not comfortable ORIENTATION/CONSCIOUSNESS: Yes awake, Yes oriented to person, Yes oriented to place and Yes oriented to time HENMT: COMMON NORMALS: normocephalic, atraumatic, external ears normal and Normal external nose present HEAD & SCALP: normocephalic and atraumatic N OSE: Normal external nose present EXTERNAL EAR: Yes external ears normal M OUTH: Normal oral and palatal mucosa present THROAT: posterior oropharynx normal Eye: COMMON NORMALS: Equal, round and reactive pupils present and conjunctivae normal GENERAL EYE: appearance normal, both eyes and all related structures CONJUNCTIVA: Yes conjunctivae normal PUPIL: Yes Equal, round and reactive pupils present EOM: No EOM abnormal Neck/C-Spine: COMMON NORMALS: Thyroid normal GENERAL: Yes normal visual inspection and Yes trachea midline THYROID: Thyroid normal CAROTIDS: No bruit CERVICAL SPINE: Yes cervical ROM normal Lymph: LYMPHATIC: No lymphadenopathy Resp: OTHER: He has crackles from mid to lower lung hopson on the L. lung hopson and R. Cardio: OTHER: RRR, no m/r/g/clicks. No carotid bruits b/l. 2+ radial and DP pulses appreciated b/l GI: OTHER: BS+, nontender, nondistended, no rigidity, no guarding, no rebound tenderness, no organomegaly. Extremity: GENERAL: No clubbing, No cyanosis and No edema Neuro: SENSORIUM/ORIENTATION: Yes oriented to person, Yes oriented to place and Yes oriented to time CRANIAL NERVES: Yes CN normal except as noted S PEECH: speech normal (but breathless) SENSORY EXAM: No sensory level loss detected MOTOR EXAM: 5/5 motor strength present throughout and Normal motor muscle tone present throughout Psych: COMMON NORMALS: Normal thought process present and speech normal (normal but breathless) APPEARANCE: Yes grossly normal ATTITUDE: Yes calm and Yes engaged ACTIVITY/MOTOR BEHAVIOR: Yes appropriate eye contact S PEECH: Yes normal speech (normal but breathless) MOOD & AFFECT: Yes euthymic mood THOUGHT PROCESS: Normal thought process present THOUGHT CONTENT: Yes Normal thought content present ATTENTION/CONCENTRATION: Yes attention grossly intact Skin: COMMON NORMALS: no rashes or lesions noted GENERAL SKIN EXAM: no rashes or lesions noted Data 09/02/23 03:19 09/02/23 03:19 Micro: Microbiology 08/31/23 09:50 Urine Culture - Final Urine,Clean Catch A&P Assessment and plan (1) Acute on chronic heart failure with preserved ejection fraction (HFpEF): (2) COPD with acute exacerbation: (3) Sepsis: Qualifiers: Sepsis acute organ dysfunction status: without acute organ dysfunction Sepsis type: sepsis due to unspecified organism Qualified Code(s): A41.9 - Sepsis, unspecified organism (4) Bilateral pneumonia: Qualifiers: Lung location: lower lobe of lung Pneumonia type: due to unspecified organism Qualified Code(s): J18.9 - Pneumonia, unspecified organism (5) Type 2 diabetes mellitus without complications: Qualifiers: Diabetes mellitus intermodal customer service insulin use: without intermodal customer service use Qualified Code(s): E11.9 - Type 2 diabetes mellitus without complications (6) Essential (primary) hypertension: (7) Mixed hyperlipidemia: (8) GERD (gastroesophageal reflux disease): Qualifiers: Esophagitis presence: esophagitis presence not specified Qualified Code(s): K21.9 - Gastro-esophageal reflux disease without esophagitis Plan Jesús Encinas Nitincarrie is a 83 yo man w/ CLL, HTN, HLD, DM2, Paroxysmal Afib on Warfarin, CKD, chronic hypoxic respiratory failure on 2L at night and prn, who presented to the ED on 08/30/2023 with complaints of worsening dyspnea and increased productive cough of clear sputum for the last 3-4 days. Per chart review, he saw his Subcontracts Manager on 08/23/2023, who started him on a 10day course of Amoxicillin for bronchitis. In the ED, he was tachycardic to 134, and tachypneic to 22. His baseline WBC has ranged from 15.2-28.4 in the past, but it was 35.7. His lactic acid was 1. His EKG showed sinus tachycardia w/ no ST changes and a QTc of 456. His Trop T was mildly elevated to 55 but steadily decreased. He had an ProBNP of 1258. A CXR was done that showed new b/l basilar infiltrates and a RUL infiltrate that has nearly completely cleared. BCx were done, and he was given 1 g of ceftriaxone and 500 mg of azithromycin prior to admission. On admission, a UA was ordered. #Acute on chronic hypoxic respiratory failure: On 4L. #Sepsis: - Likely due to bilateral pneumonia. - F/u BCx, UA. #Gram negative b/l pneumonia: R/o aspiration - Given that he was on Amoxicillin shortly before admission started Vanc, Cefepime and Azithromycin. #Acute COPD exacerbation: #Acute on chronic HFpEF: Held on giving Lasix on admission - Gave Lasix 40mg IVP and albumin on 08/31/2023. Ordered another dose for 09/01/2023. Will start diuresis on 08/31/2023 #ZONIA on CKD: Monitor renal function. #Steroid induced hyperglycemia: Increase Insulin glargine. #DM2: On Insulin glargine with low dose sliding scale insulin during the day and night. #CLL: Continue to monitor #HTN: Monitor BP. #HLD: Resume as appropriate #Paroxysmal Afib on Warfarin: Start full dose lovenox. Monitor daily INRs. Resumed Diltiazem ER. #Gout: Resume Allopurinol. #Depression: Resume medication as appropriate #Chronic constipation: Laxative prn. #GERD: Resumed PPI #BPH: Resumed tamsulosin #Likely CKDIII: Monitor renal fxn DVT ppx: Full dose lovenox. GI ppx: PPI Attestations 2 Medical Necessity Statement*: The patient remains hospitalized for ZONIA and the other acute medical problems. Coding Level of Care Code 71630 Diagnoses Acute on chronic heart failure with preserved ejection fraction (HFpEF) I50.33 COPD with acute exacerbation J44.1 Sepsis without acute organ dysfunction, due to unspecified organism A41.9 Sepsis acute organ dysfunction status: without acute organ dysfunction Sepsis type: sepsis due to unspecified organism Bilateral pneumonia J18.9 Lung location: lower lobe of lung Pneumonia type: due to unspecified organism Type 2 diabetes mellitus without complication, without long-term current use of insulin E11.9 Diabetes mellitus intermediate insulin use: without intermediate use Essential (primary) hypertension I10 Mixed hyperlipidemia E78.2 Gastroesophageal reflux disease, unspecified whether esophagitis present K21.9 Esophagitis presence: esophagitis presence not specified
[2023-09-02] MEDS: insulin lispro 100 unit/1 mL 10 UNIT SUBCUT (13:53)
[2023-09-02] MEDS: albumin 25 G/100 ML BAG 60 G IV (13:53)
[2023-09-02] MEDS: FUROsemide 10 mg/mL SDV 4mL 40 MG IVP (15:28)
[2023-09-02 16:48] LABS: Glucose Point of Care 162 mg/dL (70-110)
[2023-09-02] MEDS: tamsulosin 0.4 mg Capsule 0.400000000000000022 MG PO (17:03)
--- NOTE | 2023-09-02 19:02 | P.CONIM_ITS ---
Providers/Reason For Consult 2 Consulting Physician/Specialty*: kommana/nephrology Reason for Consult*: Acute on CKD Attending Physician: Laurie Engel MD Primary Care Provider: Autumn Pierre DO History of Present Illness History of Present Illness Jesús Cole is a 83 year old male Patient is a 83-year-old male with past medical history of CLL, hypertension, diabetes, chronic kidney disease with a baseline creatinine in the mid 1 range followed by nephrology as outpatient, chronic respiratory failure with history of CHF and COPD on 2 L O2 at baseline presented to the emergency department on 08/30/2023 due to worsening shortness of breath. He was also recently treated for bronchitis with amoxicillin. In the emergency department he was tachycardic and tachypneic has elevated WBC count chest x-ray showed bibasilar infiltrates patient was started on ceftriaxone and azithromycin for possible pneumonia.. Patient was also thought to have CHF exacerbation as well as COPD exacerbation. Patient received as needed doses of IV Lasix with reasonable diuresis so far. Noted to have a rising creatinine of 2.1 today. He denies any complaints. Review of Systems 2 Narrative: Other ROS NEGATIVE Medications/Allergies Home Medications Medication Instructions Recorded Confirmed Last Taken Type vit C 250 mg-vit E 90 mg-zinc 40 1 tab PO DAILY 08/19/21 08/30/23 08/30/23 History mg-copper 1 ed-wycixb-pucuug capsule (PreserVision AREDS-2) olmesartan 5 mg tablet 5 mg PO QAM 01/02/23 08/30/23 08/30/23 History warfarin 2 mg tablet 2 mg PO DIRECTED #90 tabs 02/26/23 08/30/23 07/20/23 Rx revefenacin 175 mcg/3 mL solution 175 mcg (3 mL) inhalation DAILY 04/18/23 08/30/23 08/30/23 Rx for nebulization (Yupelri) COPD J44.9 #90 mL furosemide 20 mg tablet 10 mg PO QAM 05/17/23 08/30/23 08/30/23 History potassium chloride 10 mEq 10 meq PO DAILY PRN Edema 05/17/23 08/30/23 05/16/23 History tablet,extended release citalopram 20 mg tablet See Rx Instructions .Route 05/20/23 08/30/23 08/30/23 Rx .COMPLEX #90 tabs linagliptin 5 mg tablet (Tradjenta) 5 mg PO QPM #90 tabs 06/08/23 08/30/23 08/29/23 Rx citalopram 10 mg tablet See Rx Instructions .Route 06/11/23 08/30/23 08/30/23 Rx .COMPLEX #90 tabs formoterol fumarate 20 mcg/2 mL 2 ml inhalation BID #120 mL 06/25/23 08/30/23 08/30/23 Rx solution for nebulization (Perforomist) diltiazem HCl 240 mg capsule,24 240 mg PO DAILY 30 days #30 caps 07/19/23 08/30/23 08/30/23 Rx hr,extended release allopurinol 300 mg tablet 150 mg PO QAM 07/20/23 08/30/23 08/30/23 History tamsulosin 0.4 mg capsule 0.4 mg PO QPM 07/20/23 08/30/23 08/29/23 History warfarin 3 mg tablet 3 mg PO DAILY 07/20/23 08/30/23 08/30/23 History albuterol sulfate 90 mcg/actuation 2 puff inhalation Q4H PRN 07/27/23 08/30/23 08/30/23 Rx aerosol inhaler Shortness Of Breath #8.5 grams amoxicillin 250 mg capsule 250 mg PO Q8H #30 caps 08/23/23 08/30/23 08/30/23 Rx atorvastatin 20 mg tablet 20 mg PO DAILY 08/30/23 08/30/23 08/30/23 History calcium carbonate 500 mg calcium 500 mg PO BID 08/30/23 08/30/23 08/30/23 History (1,250 mg) chewable tablet (Calcium 500) Allergies Allergy/AdvReac Type Severity Reaction Status Date / Time No Known Allergies Allergy Verified 08/30/23 14:13 Current Medications Generic Name Dose Route Start Last Admin Trade Name Freq PRN Reason Stop Dose Admin Albuterol/Ipratropium 3 ml 08/31/23 20:00 09/02/23 15:06 Ipratropium-Albuterol 3 Ml Neb INHALATION 3 ml Q4H.RESPIRATORY MARCOS Administration Allopurinol 150 mg 08/31/23 06:00 09/02/23 06:54 Allopurinol 300 Mg Tablet PO 150 mg QAM MARCOS Administration Atorvastatin Calcium 40 mg 09/01/23 09:00 09/02/23 08:27 Atorvastatin 40 Mg Tablet PO 40 mg DAILY MARCOS Administration Diltiazem HCl 240 mg 08/31/23 16:30 09/02/23 08:27 Diltiazem Er (24hr) 240 Mg Capsule PO 240 mg DAILY MARCOS Administration Enoxaparin Sodium 80 mg 08/30/23 23:45 09/02/23 11:08 Enoxaparin 80 Mg/0.8 Ml Syringe SUBCUT 80 mg Q12H MARCOS Administration Furosemide 40 mg 08/31/23 08:00 08/31/23 08:42 Furosemide 10 Mg/Ml Sdv 4ml IVP 40 mg Q24H MARCOS Administration Cefepime HCl 1,000 mg/ Sodium 50 mls @ 100 mls/hr 08/31/23 00:45 09/02/23 17:33 Chloride IV Infused Q8H [facility] Infusion Protocol Azithromycin 500 mg/ Sodium 250 mls @ 250 mls/hr 08/31/23 09:00 09/02/23 09:30 Chloride IV 09/04/23 08:59 Infused Q24H [facility] Infusion Protocol Vancomycin/PEG/NADA/Lysine/Water 1,250 mg in 250 mls @ 250 mls/hr 09/02/23 11:00 09/02/23 12:10 Vancocin IV Infused Q24H [facility] Infusion Insulin Glargine 40 unit 09/02/23 09:00 09/02/23 08:27 Insulin Glargine 100 Units/1 Ml SUBCUT 40 unit DAILY MARCOS Administration Insulin Human Lispro 0 unit 08/31/23 08:00 09/02/23 17:02 Insulin Lispro 100 Unit/1 Ml SUBCUT 2 unit TIDWM MARCOS Administration Protocol Insulin Human Lispro 0 unit 08/31/23 21:00 09/01/23 21:51 Insulin Lispro 100 Unit/1 Ml SUBCUT 3 unit BEDTIME MARCOS Administration Protocol Methylprednisolone Sodium Succinate 60 mg 08/31/23 09:00 09/02/23 08:49 Methylprednisolone Sod Succ 125 Mg/2 Ml Inj IVP 09/03/23 09:01 60 mg DAILY MARCOS Administration Pantoprazole Sodium 40 mg 08/31/23 07:00 09/02/23 06:[address] 40 Mg Tablet PO 40 mg ACBREAKFAST MARCOS Administration Tamsulosin HCl 0.4 mg 08/31/23 18:00 09/02/23 17:03 Tamsulosin 0.4 Mg Capsule PO 0.4 mg QPM MARCOS Administration PFSH Acute 2 PFSH: Medical History (Updated 08/31/23 @ 16:35 by Laurie Engel MD) Acute and chronic respiratory failure with hypoxia CLL (chronic lymphocytic leukemia) GERD (gastroesophageal reflux disease) Bronchitis Type 2 diabetes mellitus without complications Delirium Frontal lobe dementia Word finding difficulty Displaced fracture of right femoral neck Hyperkalemia Closed fracture of right hip Depression Acute exacerbation of chronic obstructive airways disease CKD (chronic kidney disease), stage IV Viral upper respiratory infection Atrial fibrillation with rapid ventricular response Pneumonia Lymphocytosis Bradycardia Long-term (current) use of anticoagulants, INR goal 2.0-3.0 Dyslipidemia Edema leg COPD (chronic obstructive pulmonary disease) CKD (chronic kidney disease) Pain in right knee Atopic dermatitis, unspecified Gout, unspecified CAP (community acquired pneumonia) Orthopnea Unspecified atrial fibrillation Essential (primary) hypertension Pain in left finger(s) Surgical History (Updated 08/30/23 @ 23:08 by Laurie Engel MD) History of right hip replacement History of left hip replacement Dr. Bennett - 11/2021 at [place], [place] History of prostate surgery History of total knee replacement bilateral History of cholecystectomy Family History Other Cancer Hypertension Lung disease Denies family history of Diabetes CAD (coronary artery disease) Clotting disorder Dementia Hyperlipidemia Psychiatric illness Chronic kidney disease (CKD) Suicide Anesthesia complication Bleeding disorder Stroke Social History Smoking and tobacco/nicotine status: former use of tobacco/nicotine Quit status (tobacco/nicotine): has quit using Year quit tobacco: 2009 - 1PPD x 50 Years Second hand smoke exposure: No Alcohol intake: current Substance/Drug Use: never Lives independently: Yes Household members: spouse Marital status: Current occupational status: retired Do you think of yourself as: Straight/Heterosexual Current gender identity: Male Vitals/I&O/Wt Last Vital Signs Temp 97.7 F 09/02/23 11:50 Pulse 77 09/02/23 15:41 Resp 18 09/02/23 15:41 BP 134/63 09/02/23 15:41 Pulse Ox 94 09/02/23 15:41 O2 Del Method Nasal Cannula 09/02/23 15:41 O2 Flow Rate 2.5 09/02/23 15:09 09/02/23 09/02/23 09/02/23 06:59 14:59 22:59 Intake Total 50 / 1350 1030 / 1030 390 / 1420 Output Total 300 / 1125 300 / 300 Balance -250 / 225 1030 / 1030 90 / 1120 Weight last 48 hrs Weight 88.536 kg Weight 87.679 kg Physical Exam 2 Narrative: Patient is awake alert, on 3 L nasal cannula S1-S2 regular rate and rhythm per report crackles bilaterally per report Trace edema bilateral lower extremities Data 09/02/23 03:19 09/02/23 03:19 Micro: Microbiology 08/31/23 09:50 Urine Culture - Final Urine,Clean Catch A&P Assessment and plan (1) Acute kidney injury superimposed on chronic kidney disease: Plan 1. Acute on chronic kidney disease stage III: Baseline creatinine in the mid 1 range, followed by nephrology as outpatient., Currently has an ZONIA with a rising creatinine of 2.1 likely multifactorial in the setting of possible ATN and due to pneumonia , and possible cardiorenal. Agree with holding Lasix and give as needed if needed- -Will check renal ultrasound and bladder scan today and urine electrolytes. -Place on 2 g sodium restriction and 1500 mL fluid restriction, no indication for dialysis. Reasonable urine output noted, hold ARB for now 2. Acute on chronic respiratory failure: Multifactorial in the setting of CHF, pneumonia, COPD, improved on 3 L O2 by nasal cannula 3. Bilateral pneumonia 4. Hyponatremia: Mild, monitor 5. History of CLL Patient evaluated using audiovisual cart. Time spent 40 minutes. Consult Attestations 2 Medical Necessity Statement: Per medicine team. Coding Level of Care Code Acute Code for Chg Fwd Diagnoses Acute kidney injury superimposed on chronic kidney disease N17.9; N18.9
[2023-09-02 20:43] LABS: Glucose Point of Care 184 mg/dL (70-110)
[2023-09-03] VITALS (14 sets, daily range): BP systolic 128–165; BP diastolic 65–85; PULSE 59–99; RESP 18–24; TEMP 36.2–37.1; O2SAT 94–96
[2023-09-03] MEDS: ipratropium-albuterol 3 mL Neb INHALATION ×5 (04:44→20:58)
[2023-09-03 05:00] LABS: Hematocrit 32.2 % (37-53); Mean Corpuscular HGB Conc 32.6 g/dL (30-55); Mean Corpuscular Hemoglobin 30.4 pg (27-33); Mean Corpuscular Volume 93.3 fl (82-101); Mean Platelet Volume 9.4 fL (7.4-10.4); Platelet Count 246 10^3/cmm (157-399); Red Blood Count 3.45 10^6/uL (3.85-5.65); Red Cell Distribution Width 13.8 % (12.1-15.1); White Blood Count 21.37 10^3/uL (3.29-11.43)
[2023-09-03 05:11] LABS: Total Cells Counted 100 (0-100)
[2023-09-03 05:12] LABS: Absolute Neutrophil 16.2 10^3/cmm (1.4-6.5); Band Neutrophils Absolute 1.3 10^3/cmm (0.0-1.2); Basophils Absolute 0.2 10^3/cmm (0.0-0.2); Eosinophils 0 %; Lymphocytes 17 %; Lymphocytes Absolute 3.6 10^3/cmm (1.2-3.4); Monocytes Absolute 1.3 10^3/cmm (0.1-0.6); Platelet Estimate Normal (Normal); Segmented Neutrophils 70 %
[2023-09-03 05:26] LABS: Alanine Aminotransferase 12 U/L (0-41); Albumin Level 3.7 g/dL (3.5-5.2); Alkaline Phosphatase 81 U/L (40-130); Anion Gap 17.1 (5-19); Aspartate Amino Transferase 12 U/L (0-40); Blood Urea Nitrogen 72 mg/dL (8-23); Calcium 9.3 mg/dL (8.5-10.5); Carbon Dioxide 23 mmol/L (22-29); Chloride 104 mmol/L (98-107); Globulin 2.3 g/dL (1.3-4.6); Glucose 179 mg/dL (65-115); Magnesium 1.8 mg/dL (1.7-2.3); Osmolality Calculated 316 mOsm/kg (285-295); Phosphorus 3.3 mg/dL (2.5-4.5); Potassium 4.1 mmol/L (3.5-5.1); Sodium 140 mmol/L (136-145); Total Bilirubin 0.2 mg/dL (0.15-1.2)
[2023-09-03] MEDS: allopurinol 300 mg Tablet 150 MG PO (06:25)
[2023-09-03] MEDS: pantoprazole DR 40 mg Tablet PO (06:25)
[2023-09-03 06:47] LABS: Glucose Point of Care 198 mg/dL (70-110)
[2023-09-03] MEDS: insulin lispro 100 unit/1 mL SUBCUT ×4 (09:49→21:00)
[2023-09-03] MEDS: atorvastatin 40 mg Tablet PO (09:50)
[2023-09-03] MEDS: methylPREDNISolone sod succ 125 mg/2 mL INJ 60 MG IVP (09:50)
[2023-09-03] MEDS: dilTIAZem ER (24HR) 240 mg Capsule PO (09:50)
[2023-09-03] MEDS: insulin glargine 100 units/1 mL 40 UNIT SUBCUT (10:00)
[2023-09-03] MEDS: azithromycin 500 MG in sodium chloride 0.9% 250 ML 250 MG IV (10:02)
--- NOTE | 2023-09-03 11:16 | P.PN_ITS ---
Subjective 2 Subjective: pt doing well Medications: Reviewed: Yes Vitals/I&O/Wt Last Vital Signs Temp 97.2 F L 09/03/23 07:26 Pulse 98 09/03/23 07:26 Resp 20 H 09/03/23 07:26 BP 149/75 09/03/23 07:26 Pulse Ox 94 09/03/23 07:26 O2 Del Method Nasal Cannula 09/03/23 07:26 O2 Flow Rate 2.5 09/03/23 07:12 09/02/23 09/03/23 09/03/23 22:59 06:59 14:59 Intake Total 630 / 1660 50 / 1710 120 / 120 Output Total 1250 / 1250 800 / 2050 220 / 220 Balance -620 / 410 -750 / -340 -100 / -100 Weight last 48 hrs Weight 87.634 kg Weight 88.536 kg Physical Exam 2 Narrative: Patient is awake alert, on 3 L nasal cannula S1-S2 regular rate and rhythm per report crackles bilaterally per report Trace edema bilateral lower extremities Data 09/03/23 04:34 09/03/23 04:34 Micro: Microbiology 08/31/23 09:50 Urine Culture - Final Urine,Clean Catch A&P Assessment and plan (1) Acute kidney injury superimposed on chronic kidney disease: Plan 1. Acute on chronic kidney disease stage III: Baseline creatinine in the mid 1 range, followed by nephrology as outpatient., Currently has an ZONIA with a rising creatinine of 2.3 likely multifactorial in the setting of possible ATN and due to pneumonia , and possible cardiorenal. - holding lasix , resume in Am - hold ARB for now , resume as out pt after renal fxn back to baseline - pt to follow up with nephrology in 2 weeks -No obstruction on renal US , -Place on 2 g sodium restriction and 1500 mL fluid restriction, no indication for dialysis. Reasonable urine output noted, 2. Acute on chronic respiratory failure: Multifactorial in the setting of CHF, pneumonia, COPD, improved on 3 L O2 by nasal cannula 3. Bilateral pneumonia 4. Hyponatremia: Mild, monitor 5. History of CLL Patient evaluated using audiovisual cart. Time spent 20 minutes. Attestations 2 Medical Necessity Statement*: per [facility] team Coding Level of Care Code Acute Code for Chg Fwd Diagnoses Acute kidney injury superimposed on chronic kidney disease N17.9; N18.9
[2023-09-03 11:17] LABS: Glucose Point of Care 276 mg/dL (70-110)
[2023-09-03 11:51] LABS: Partial Thromboplastin Time 30.5 SECONDS (23.9-36.7)
[2023-09-03] MEDS: vancomycin 1,250 MG/250 ML PIGGYBACK 250 MG IV (12:01)
--- NOTE | 2023-09-03 13:36 | PC.SOCIAL ---
Pg 2 IMM Explained to pt Pg 2 IMM. No questions voiced. Provided pt a copy. Initialed, dated, & timed a copy & placed in chart.
[2023-09-03] MEDS: cefepime 1,000 MG in sodium chloride 0.9% (plus) 50 ML 100 MG IV ×2 (13:37)
--- NOTE | 2023-09-03 13:56 | P.PN_ITS ---
Subjective 2 Subjective: Patient was seen this morning, he does complain of intermittent wheezing, no chest pain, no palpitations, he is worried about his kidney function, tells me that he urinated throughout the night, no fevers, no chills Vitals/I&O/Wt Last Vital Signs Temp 97.5 F L 09/03/23 11:19 Pulse 64 09/03/23 11:22 Resp 20 H 09/03/23 11:22 BP 144/66 09/03/23 11:19 Pulse Ox 95 09/03/23 11:22 O2 Del Method Nasal Cannula 09/03/23 11:22 O2 Flow Rate 2 09/03/23 11:22 09/02/23 09/03/23 09/03/23 22:59 06:59 14:59 Intake Total 630 / 1660 50 / 1710 860 / 860 Output Total 1250 / 1250 800 / 2050 520 / 520 Balance -620 / 410 -750 / -340 340 / 340 Weight last 48 hrs Weight 87.634 kg Weight 88.536 kg Physical Exam 2 Const: COMMON NORMALS: no acute distress and patient oriented x3 Resp: COMMON NORMALS: normal respiratory effort, No retractions and No use of accessory muscles AUSCULTATION: wheezes Cardio: COMMON NORMALS: regular rate, regular rhythm, S1 normal heart sound present and S2 normal heart sound present RATE: regular rate RHYTHM: r egular rhythm HEART SOUNDS: S1 normal heart sound present and S2 normal heart sound present GI: COMMON NORMALS: Normal to inspection, nondistended, normoactive bowel sounds present and non-tender Extremity: COMMON NORMALS: no pedal edema Neuro: COMMON NORMALS: patient oriented x3 Psych: COMMON NORMALS: mental status grossly normal Data 09/03/23 04:34 09/03/23 04:34 Micro: Microbiology 08/31/23 09:50 Urine Culture - Final Urine,Clean Catch A&P Assessment and plan (1) Acute kidney injury superimposed on chronic kidney disease: (2) Acute on chronic heart failure with preserved ejection fraction (HFpEF): (3) COPD with acute exacerbation: (4) Sepsis: Qualifiers: Sepsis type: sepsis due to unspecified organism Sepsis acute organ dysfunction status: without acute organ dysfunction Qualified Code(s): A41.9 - Sepsis, unspecified organism (5) Bilateral pneumonia: Qualifiers: Lung location: lower lobe of lung Pneumonia type: due to unspecified organism Qualified Code(s): J18.9 - Pneumonia, unspecified organism (6) Type 2 diabetes mellitus without complications: Qualifiers: Diabetes mellitus long-term insulin use: without supervisor intermediates use Qualified Code(s): E11.9 - Type 2 diabetes mellitus without complications (7) Essential (primary) hypertension: (8) Mixed hyperlipidemia: (9) GERD (gastroesophageal reflux disease): Qualifiers: Esophagitis presence: esophagitis presence not specified Qualified Code(s): K21.9 - Gastro-esophageal reflux disease without esophagitis Plan Jesús Cole is a 83 yo man w/ CLL, HTN, HLD, DM2, Paroxysmal Afib on Warfarin, CKD, chronic hypoxic respiratory failure on 2L at night and prn, who presented to the ED on 08/30/2023 with complaints of worsening dyspnea and increased productive cough of clear sputum for the last 3-4 days. Per chart review, he saw his Clinical Trial Manager on 08/23/2023, who started him on a 10day course of Amoxicillin for bronchitis. In the ED, he was tachycardic to 134, and tachypneic to 22. His baseline WBC has ranged from 15.2-28.4 in the past, but it was 35.7. His lactic acid was 1. His EKG showed sinus tachycardia w/ no ST changes and a QTc of 456. His Trop T was mildly elevated to 55 but steadily decreased. He had an ProBNP of 1258. A CXR was done that showed new b/l basilar infiltrates and a RUL infiltrate that has nearly completely cleared. BCx were done, and he was given 1 g of ceftriaxone and 500 mg of azithromycin prior to admission. On admission, a UA was ordered. #Acute on chronic hypoxic respiratory failure: Currently on 2 L #Sepsis: - Likely due to bilateral pneumonia. - F/u BCx, UA. #Gram negative b/l pneumonia: R/o aspiration -Continue cefepime, azithromycin -Vancomycin trough 21.7, will discontinue vancomycin for now #Acute COPD exacerbation: Will start on prednisone 40 mg daily #Acute on chronic HFpEF: Currently Lasix on hold #ZONIA on CKD: Monitor renal function. #Steroid induced hyperglycemia: Increase Insulin glargine. #DM2: On Insulin glargine with low dose sliding scale insulin during the day and night. #CLL: Continue to monitor #HTN: Monitor BP. #HLD: Resume as appropriate #Paroxysmal Afib on Warfarin: Start full dose lovenox. Monitor daily INRs. Resumed Diltiazem ER. #Gout: Resume Allopurinol. #Depression: Resume medication as appropriate #Chronic constipation: Laxative prn. #GERD: Resumed PPI #BPH: Resumed tamsulosin #Likely CKDIII: Monitor renal fxn DVT ppx: Full dose lovenox. GI ppx: PPI Plan for today, vancomycin trough is 21.7 will discontinue vancomycin, continue cefepime and azithromycin, follow cultures, start prednisone 40 mg daily, has intermittent wheezing, creatinine is up to 2.3, Lasix will be put on hold, good urine output, monitor respiratory status, plan on discharge in next 24 to 48 hours, Lovenox switch to 80 mg subcu 24 hours, Coumadin will be restarted, with bridging due to INR being 1.2 Attestations 2 Medical Necessity Statement*: Patient requires hospitalization due to pneumonia, ZONIA Diagnoses Acute kidney injury superimposed on chronic kidney disease N17.9; N18.9 Acute on chronic heart failure with preserved ejection fraction (HFpEF) I50.33 COPD with acute exacerbation J44.1 Sepsis without acute organ dysfunction, due to unspecified organism A41.9 Sepsis type: sepsis due to unspecified organism Sepsis acute organ dysfunction status: without acute organ dysfunction Bilateral pneumonia J18.9 Lung location: lower lobe of lung Pneumonia type: due to unspecified organism Type 2 diabetes mellitus without complication, without long-term current use of insulin E11.9 Diabetes mellitus supervisor intermediates insulin use: without long-term use Essential (primary) hypertension I10 Mixed hyperlipidemia E78.2 Gastroesophageal reflux disease, unspecified whether esophagitis present K21.9 Esophagitis presence: esophagitis presence not specified
[2023-09-03 16:24] LABS: Glucose Point of Care 216 mg/dL (70-110)
[2023-09-03] MEDS: tamsulosin 0.4 mg Capsule 0.400000000000000022 MG PO (16:59)
[2023-09-03] MEDS: warfarin 5 mg Tablet PO (16:59)
--- NOTE | 2023-09-03 19:34 | US_ITS ---
WS: [id number] RENAL ULTRASOUND HISTORY: fidelia COMPARISON: 04/14/2019 TECHNIQUE: 2-D and color Doppler imaging of the kidney submitted. Right kidney: 9.7 cm x 4.7 cm x 4.4 cm. Cortex: 1.1 cm Normal size kidney. There is a small cortical cyst in the mid kidney measuring 1.4 x 1.1 x 1.0 cm. No hydronephrosis. Left kidney: 10.3 cm x 5.2 cm x 6.1 cm. Cortex: 1.3 cm Normal echogenicity with no hydronephrosis or mass. Previously described cortical cyst in the LEFT ki dney is not identified. Aorta: Normal. Urinary Bladder: Normal distention. IMPRESSION: 1. No hydronephrosis or solid renal mass. 2. Tiny cortical cyst RIGHT kidney is new since 04/14/2019. 3. Previously described cortical cyst LEFT kidney is not identified today.
[2023-09-03 20:57] LABS: Glucose Point of Care 238 mg/dL (70-110)
[2023-09-03] MEDS: enoxaparin 80 mg/0.8 mL Syringe SUBCUT ×2 (22:38)
[2023-09-04] VITALS (11 sets, daily range): BP systolic 150–175; BP diastolic 66–83; PULSE 7–88; RESP 18–22; TEMP 36.2–36.9; O2SAT 93–97
[2023-09-04] MEDS: cefepime 1,000 MG in sodium chloride 0.9% (plus) 50 ML 100 MG IV ×2 (00:10→12:36)
[2023-09-04] MEDS: ipratropium-albuterol 3 mL Neb INHALATION ×3 (00:12→11:23)
[2023-09-04 06:00] LABS: Hematocrit 34.2 % (37-53); Mean Corpuscular HGB Conc 32.7 g/dL (30-55); Mean Corpuscular Hemoglobin 30.6 pg (27-33); Mean Corpuscular Volume 93.4 fl (82-101); Mean Platelet Volume 9.5 fL (7.4-10.4); Platelet Count 235 10^3/cmm (157-399); Red Blood Count 3.66 10^6/uL (3.85-5.65); Red Cell Distribution Width 13.6 % (12.1-15.1); White Blood Count 17.63 10^3/uL (3.29-11.43)
[2023-09-04] MEDS: pantoprazole DR 40 mg Tablet PO (06:03)
[2023-09-04] MEDS: allopurinol 300 mg Tablet 150 MG PO (06:03)
[2023-09-04 06:11] LABS: INR 1.09 (0.8-1.2)
[2023-09-04 06:21] LABS: Alanine Aminotransferase 22 U/L (0-41); Albumin Level 3.7 g/dL (3.5-5.2); Alkaline Phosphatase 81 U/L (40-130); Anion Gap 16.4 (5-19); Aspartate Amino Transferase 17 U/L (0-40); Blood Urea Nitrogen 67 mg/dL (8-23); Calcium 9.4 mg/dL (8.5-10.5); Carbon Dioxide 23 mmol/L (22-29); Chloride 103 mmol/L (98-107); Creatinine Clr Calc Pharmacy 32.4865; Globulin 2.5 g/dL (1.3-4.6); Glucose 191 mg/dL (65-115); Osmolality Calculated 311 mOsm/kg (285-295); Phosphorus 2.9 mg/dL (2.5-4.5); Potassium 4.4 mmol/L (3.5-5.1); Sodium 138 mmol/L (136-145); Total Bilirubin 0.2 mg/dL (0.15-1.2); Total Protein 6.2 g/dL (6.6-8.7)
[2023-09-04 06:29] LABS: NT Pro B Type Natriuretic Pept 8405 pg/mL (0-450)
[2023-09-04 06:52] LABS: Glucose Point of Care 192 mg/dL (70-110)
[2023-09-04 07:21] LABS: Absolute Segmented Neutrophil 13.6 10/cmm (1.6-7.1); Eosinophils 0 %; Lymphocytes 14 %; Lymphocytes Absolute 2.5 10^3/cmm (1.2-3.4); Monocytes Absolute 1.2 10^3/cmm (0.1-0.6); Segmented Neutrophils 77 %; Total Cells Counted 100 (0-100)
[2023-09-04 07:23] LABS: Absolute Neutrophil 13.6 10^3/cmm (1.4-6.5); Platelet Estimate Normal (Normal)
[2023-09-04 07:24] LABS: Anisocytosis Trace
[2023-09-04] MEDS: insulin lispro 100 unit/1 mL SUBCUT ×2 (08:35→12:32)
[2023-09-04] MEDS: dilTIAZem ER (24HR) 240 mg Capsule PO (08:35)
[2023-09-04] MEDS: atorvastatin 40 mg Tablet PO (08:35)
[2023-09-04] MEDS: insulin glargine 100 units/1 mL 40 UNIT SUBCUT (08:36)
--- NOTE | 2023-09-04 08:59 | P.PN_ITS ---
Subjective 2 Subjective: feels OK on 2L NC Medications: Reviewed: Yes Vitals/I&O/Wt Last Vital Signs Temp 97.2 F L 09/04/23 07:27 Pulse 87 09/04/23 07:27 Resp 19 H 09/04/23 07:27 BP 150/83 09/04/23 07:27 Pulse Ox 95 09/04/23 07:27 O2 Del Method Nasal Cannula 09/04/23 07:27 O2 Flow Rate 2 09/04/23 07:22 09/03/23 09/04/23 09/04/23 22:59 06:59 14:59 Intake Total 480 / 1390 50 / 1440 240 / 240 Output Total 1200 / 1720 1050 / 2770 420 / 420 Balance -720 / -330 -1000 / -1330 -180 / -180 Weight last 48 hrs Weight 88.723 kg Weight 87.634 kg Physical Exam 2 Narrative: Patient is awake alert, on 3 L nasal cannula S1-S2 regular rate and rhythm per report crackles bilaterally per report Trace edema bilateral lower extremities Data 09/04/23 05:38 09/04/23 05:38 A&P Assessment and plan (1) Acute kidney injury superimposed on chronic kidney disease: Plan 1. Acute on chronic kidney disease stage III: Baseline creatinine in the mid 1 range, followed by nephrology as outpatient., Currently has an ZONIA with a rising creatinine of 2.3 likely multifactorial in the setting of possible ATN and due to pneumonia , and possible cardiorenal. - resumed lasix 20 mg daily - hold ARB for now , resume as out pt after renal fxn back to baseline - pt to follow up with nephrology in 2 weeks -No obstruction on renal US , -Place on 2 g sodium restriction and 1500 mL fluid restriction, no indication for dialysis. Reasonable urine output noted, 2. Acute on chronic respiratory failure: Multifactorial in the setting of CHF, pneumonia, COPD, improved on 3 L O2 by nasal cannula 3. Bilateral pneumonia 4. Hyponatremia: Mild, monitor 5. History of CLL Patient evaluated using audiovisual cart. Time spent 20 minutes. Attestations 2 Medical Necessity Statement*: per [facility] Coding Level of Care Code Acute Code for Chg Fwd Diagnoses Acute kidney injury superimposed on chronic kidney disease N17.9; N18.9
--- NOTE | 2023-09-04 11:04 | P.DS_ITS ---
Discharge Providers Date of Admission: 08/30/23 16:58 Date of Discharge: September 04, 2023 Attending Provider at Admission: Laurie Engel MD Attending Provider at Discharge: Je Rodriguez MD Primary Care Provider: Autumn Pierre DO Diagnoses at Discharge Discharge Diagnosis (1) Acute kidney injury superimposed on chronic kidney disease: Status: Resolved Reason for Visit Reason for Visit: resp distress Hospital Course Hospital Course Jesús Cole is a 83 yo man w/ CLL, HTN, HLD, DM2, Paroxysmal Afib on Warfarin, CKD, chronic hypoxic respiratory failure on 2L at night and prn, who presented to the ED on 08/30/2023 with complaints of worsening dyspnea. The patient states that he does not sleep a lot because The patient states that he has been having rapid breathing, increased dyspnea, and productive cough of c lear sputum for the last 3-4 days, but did not want to come to the hospital despite his 's urging. He does not think that he slept last night. The patient woke up this AM, w/ dyspnea, copius clear productive sputum, and vomiting a lot of phlegm so his recommended that he come to the hospital. He endorses f/c, malaise, fatigue, myalgias, chest pain from coughing. Per chart review, he saw his [employer] on 08/23/2023, who started him on a 10day course of Amoxicillin for bronchitis. In the ED, he was tachycardic to 134, and tachypneic to 22. His baseline WBC has ranged from 15.2-28.4 in the past, but it was 35.7. His lactic acid was 1. His EKG showed sinus tachycardia w/ no ST changes and a QTc of 456. His Trop T was mildly elevated to 55 but steadily decreased. He had an ProBNP of 1258. A CXR was done that showed new b/l basilar infiltrates and a RUL infiltrate that has nearly completely cleared. BCx were done, and he was given 1 g of ceftriaxone and 500 mg of azithromycin prior to admission. On admission, a UA was ordered. Patient was admitted to [facility] for acute on chronic respiratory failure secondary to bilateral pneumonia, managed with broad-spectrum antibiotic therapy, overall condition improved, to 2 L, will be discharged on Augmentin with close follow-up with primary care provider as outpatient For COPD exacerbation, discharged on prednisone burst Acute on chronic heart failure with preserved ejection fraction, received diuretic therapy during his hospitalization due to elevated creatinine of 2.3 diuresis had to be held, on discharge creatinine was 2.0, resume Lasix 20 mg once daily with recheck creatinine through primary care provider on Sunday For patient's history of atrial fibrillation, INR is 1 on discharge, will be discharged on Coumadin 3 mg once daily, recheck INR on Sunday, and recheck INR in 1 week on Sunday, patient will be bridged with therapeutic Lovenox 80 mg subcu daily, until INR is 2 then can discontinue Lovenox, will have patient follow-up with primary care provider on Sunday for recheck INR, recheck creatinine, For type 2 diabetes mellitus, discharged on Lantus 20 units subcu daily, NovoLog sliding scale - Coumadin continue 3 mg daily, recheck INR in 1 week on Sunday through Dr. Pierre's office -As your INR is subtherapeutic at 1.09, we will need to bridge you with subcu Lovenox -Recheck INR on Sunday, recheck INR next Sunday through primary care ? Please inject subcu Lovenox once daily 80 mg ? Once your INR is greater than 2, you will stop Lovenox ? But you will continue Coumadin ? Your Coumadin dose will be adjusted by Dr. Pierre ? For your type 2 diabetes mellitus inject Lantus 20 units, subcu, daily -As your blood sugars improved, your need of Lantus might decrease please follow-up with primary care -Please monitor your blood sugars closely -Monitor your blood sugars 3 times daily as after meals -Please record your blood sugars, and a blood sugar log -For your NovoLog -Please inject blood sugar after meals based on sliding scale provided -Do not inject insulin if you do not eat as hypoglycemia kills -This is a NovoLog sliding scale -Insulin sliding ?fingerstick? Insulin ?141-180?0 units/sq 181-220?2 units/sq ?221-260?4 units/sq ?261-300 6 units/sq ?301-350?8 units/sq ?351-400 10 units/sq ?401-450?12 units/sq >450? 14units/sq -If your blood sugar is greater than 500 go to the emergency room -If your blood sugar is less than 60 or at anytime you feel lightheaded or dizzy or diaphoretic or have chest palpitations check your blood sugar, and eat a hard candy or drink orange juice and go immediately to the emergency room -Remember hypoglycemia kills, so if his blood sugar is less than 60 we have to increase it by taking in a sugary meal such as a hard candy or orange juice and go to the emergency room -If you have any questions please call us where here to help -Please have your primary care provider recheck your creatinine on Sunday you can resume your Lasix 20 mg once daily starting tomorrow with potassium placement therapy Physical Exam Const: COMMON NORMALS: no acute distress and patient oriented x3 Resp: COMMON NORMALS: normal respiratory effort, No retractions, No use of accessory muscles and clear to auscultation bilaterally AUSCULTATION: clear to auscultation bilaterally Cardio: COMMON NORMALS: regular rate, regular rhythm, S1 normal heart sound present and S2 normal heart sound present RATE: regular rate RHYTHM: regular rhythm HEART SOUNDS: S1 normal heart sound present and S2 normal heart sound present GI: COMMON NORMALS: Normal to inspection, nondistended, normoactive bowel sounds present, Soft to palpation and non-tender PALPATION: Yes Soft to palpation Extremity: COMMON NORMALS: no pedal edema Neuro: COMMON NORMALS: patient oriented x3 Psych: COMMON NORMALS: mental status grossly normal Discharge Data Studies Completed and Pending Completed Studies During Hospitalization Category Date Time Status XR chest 1V portable [id number] Stat Exams 08/30/23 14:20 Completed US renal BI* [id number] Routine Ultrasound 09/03/23 19:34 Completed US venous duplex lower extremity bilat [CV venous Ultrasound 09/01/23 15:22 [place] [id number]] Routine Pending at discharge Category Date Time Status Beta-Hydroxybutyrate Routine Lab 09/01/23 14:56 Received Blood Culture Stat Lab 08/30/23 15:27 Results CBC Manual Dif [Complete Blood Count w/Man Dif] AM LABS Lab 09/05/23 04:00 Ordered CMP [Comprehensive Metabolic Panel] AM LABS Lab 09/05/23 04:00 Ordered Magnesium AM LABS Lab 09/05/23 04:00 Ordered NT Pro B Type Natriuretic Pept QAM Lab 09/05/23 06:00 Ordered NT Pro B Type Natriuretic Pept QAM Lab 09/06/23 06:00 Ordered Phosphorus AM LABS Lab 09/05/23 04:00 Ordered Prothrombin Time INR AM LABS Lab 09/05/23 04:00 Ordered Prothrombin Time INR AM LABS Lab 09/06/23 04:00 Ordered Radiology Impressions Venous Duplex 09/01/23 15:22 IMPRESSION: No sonographic evidence of deep vein thrombosis. Laboratory Results WBC 17.63 10^3/uL (3.29-11.43) H 09/04/23 05:38 RBC 3.66 10^6/uL (3.85-5.65) L 09/04/23 05:38 Hgb 11.20 g/dL (11.27-16.99) L 09/04/23 05:38 Hct 34.2 % (37-53) L 09/04/23 05:38 MCV 93.4 fl (82-101) 09/04/23 05:38 MCH 30.6 pg (27-33) 09/04/23 05:38 MCHC 32.7 g/dL (30-55) 09/04/23 05:38 RDW 13.6 % (12.1-15.1) 09/04/23 05:38 Plt Count 235 10^3/cmm (157-399) 09/04/23 05:38 MPV 9.5 fL (7.4-10.4) 09/04/23 05:38 Neut % (Auto) 85.4 % 09/02/23 03:19 Lymph % (Auto) 10.3 % 09/02/23 03:19 [place] % (Auto) 2.9 % 09/02/23 03:19 Eos % (Auto) 0.0 % 09/02/23 03:19 Baso % (Auto) 0.1 % 09/02/23 03:19 Neut # (Auto) 24.60 10^3/uL (1.8-7.7) H 09/02/23 03:19 Lymph # (Auto) 3.0 10^3/uL (0.8-4.8) 09/02/23 03:19 [place] # (Auto) 0.8 10^3/uL (0.2-0.9) 09/02/23 03:19 Eos # (Auto) 0.0 10^3/uL (0.0-0.8) 09/02/23 03:19 Baso # (Auto) 0.0 10^3/uL (0.0-0.1) 09/02/23 03:19 Nucleated RBC % (auto) 0 % 09/02/23 03:19 Total Counted 100 (0-100) 09/04/23 05:38 Atypical Lymphs % 0.0 % (0-5) 09/04/23 05:38 Absolute Neutrophils 13.6 10^3/cmm (1.4-6.5) H 09/04/23 05:38 Segmented Neutrophils 77 % 09/04/23 05:38 Abs Segm Neuts (Man) 13.6 10/cmm (1.6-7.1) H 09/04/23 05:38 Band Neutrophils 0.0 % 09/04/23 05:38 Abs Band Neuts (Man) 0.0 10^3/cmm (0.0-1.2) 09/04/23 05:38 Absolute Lymphocytes 2.5 10^3/cmm (1.2-3.4) 09/04/23 05:38 Lymphocytes (Manual) 14 % 09/04/23 05:38 Monocytes (Manual) 7.0 % 09/04/23 05:38 Absolute Monocytes 1.2 10^3/cmm (0.1-0.6) H 09/04/23 05:38 Eosinophils (Manual) 0 % 09/04/23 05:38 Absolute Eosinophils 0.0 10^3/cmm (0.0-0.7) 09/04/23 05:38 Basophils (Manual) 0.0 % 09/04/23 05:38 Absolute Basophils 0.0 10^3/cmm (0.0-0.2) 09/04/23 05:38 Metamyelocytes 0.0 % 09/04/23 05:38 Myelocytes 2.0 % 09/04/23 05:38 Nucleated RBCs # 0.0 /100WBC 09/02/23 03:19 Platelet Estimate Normal (Normal) 09/04/23 05:38 Anisocytosis Trace 09/04/23 05:38 PT 14.50 SECONDS (12.1-14.9) 09/04/23 05:38 INR 1.09 (0.8-1.2) 09/04/23 05:38 APTT 30.5 SECONDS (23.9-36.7) 09/03/23 11:06 Sodium 138 mmol/L (136-145) 09/04/23 05:38 Potassium 4.4 mmol/L (3.5-5.1) 09/04/23 05:38 Chloride 103 mmol/L (98-107) 09/04/23 05:38 Carbon Dioxide 23 mmol/L (22-29) 09/04/23 05:38 Anion Gap 16.4 (5-19) 09/04/23 05:38 BUN 67 mg/dL (8-23) H 09/04/23 05:38 Creatinine 2.0 mg/dL (0.7-1.2) H 09/04/23 05:38 GFR Calculation Not Reportable 09/04/23 05:38 Glucose 191 mg/dL (65-115) H 09/04/23 05:38 POC Glucose 192 mg/dL (70-110) H 09/04/23 06:36 Calculated Osmolality 311 mOsm/kg (285-295) H 09/04/23 05:38 Lactic Acid 1.1 mmol/L (0.5-2.2) 08/30/23 14:30 Lactate 3.6 mmol/L (0.5-2.2) H 09/01/23 15:53 Calcium 9.4 mg/dL (8.5-10.5) 09/04/23 05:38 Phosphorus 2.9 mg/dL (2.5-4.5) 09/04/23 05:38 Magnesium 2.0 mg/dL (1.7-2.3) 09/04/23 05:38 Total Bilirubin 0.2 mg/dL (0.15-1.2) 09/04/23 05:38 AST 17 U/L (0-40) 09/04/23 05:38 ALT 22 U/L (0-41) 09/04/23 05:38 Alkaline Phosphatase 81 U/L (40-130) 09/04/23 05:38 Troponin T Baseline 55 ng/L (0-15) H 08/30/23 14:30 Troponin T 120 Minute 54.90 ng/L (0-15) H 08/30/23 16:43 Delta Troponin T -0.10 ABS# (0-10) L 08/30/23 16:43 Troponin T Hi Sens 6Hr 49.70 ng/L (0-15) H 08/30/23 20:15 Troponin T Hi Sens 6Hr Delta -5.30 ng/L (0-12) L 08/30/23 20:15 NT-Pro-B Natriuret Pep 8405 pg/mL (0-450) H 09/04/23 05:38 Total Protein 6.2 g/dL (6.6-8.7) L 09/04/23 05:38 Albumin 3.7 g/dL (3.5-5.2) 09/04/23 05:38 Globulin 2.5 g/dL (1.3-4.6) 09/04/23 05:38 TSH 0.86 uIU/mL (0.27-4.20) 08/31/23 04:58 Urine Color Yellow (Yellow) 08/31/23 09:50 Urine Appearance Clear (CLEAR) 08/31/23 09:50 Urine pH 5 (5-7) 08/31/23 09:50 Ur Specific [place] 1.020 (1.005-1.030) 08/31/23 09:50 Urine Protein 1+ (Negative) H 08/31/23 09:50 Urine Glucose (UA) Norm (Normal) 08/31/23 09:50 Urine Ketones 1+ (Negative) H 08/31/23 09:50 Urine Blood Neg (Negative) 08/31/23 09:50 Urine Nitrate Negative (Negative) 08/31/23 09:50 Urine Bilirubin Neg (Negative) 08/31/23 09:50 Urine Urobilinogen Norm mg/dL (Negative) 08/31/23 09:50 Ur Leukocyte Esterase Trace (Negative) H 08/31/23 09:50 Urine RBC 5-10 /hpf (0-2) H 08/31/23 09:50 Urine WBC 0-4 /hpf (0-5) H 08/31/23 09:50 Ur Squamous Epith Cells 0-4 /hpf (0-5) H 08/31/23 09:50 Amorphous Sediment Not Reportable 08/31/23 09:50 Urine Bacteria Trace /hpf (NONE) 08/31/23 09:50 Hyaline Casts 0-4 /lpf H 08/31/23 09:50 Urine Mucus 2+ /hpf 08/31/23 09:50 Vancomycin Trough 21.6 ug/mL (10-15) H 09/02/23 06:09 Influenza Type A Ag Negative (Negative) 08/30/23 15:00 Influenza Type B Ag Negative (Negative) 08/30/23 15:00 SARS-CoV-2 Ag (Rapid) negative (Negative) 08/30/23 15:00 Vitals Last Vital Signs Temp 97.2 F L 09/04/23 07:27 Pulse 87 09/04/23 07:27 Resp 19 H 09/04/23 07:27 BP 150/83 09/04/23 07:27 Pulse Ox 95 09/04/23 07:27 O2 Del Method Nasal Cannula 09/04/23 07:27 O2 Flow Rate 2 09/04/23 07:22 Discharge Plan Discharge Patient Disposition: Home Condition: Stable Prescriptions: New enoxaparin 80 mg/0.8 mL Syringe 80 mg SUBCUT DAILY 14 Days Qty: 11.2 0RF Rx Instructions: Inject subcut every 24 hourswith Coumadin, once INR is greater than 2, discontinue Lovenox insulin glargine [Lantus Solostar U-100 Insulin] 100 unit/mL (3 mL) insulin pen 20 unit SUBCUT DAILY 30 Days Qty: 15 0RF amoxicillin-pot clavulanate 875-125 mg tablet 1 tab PO BID 7 Days Qty: 14 0RF insulin aspart U-100 [Novolog FlexPen U-100 Insulin] 100 unit/mL (3 mL) insulin pen See Rx Instructions .ROUTE .COMPLEX Qty: 15 0RF Rx Instructions: Inject, subcut, 3 times daily, after meals, based on sliding scale provided Continued PreserVision AREDS-2 250-90-40-1 mg capsule 1 tab PO DAILY Yupelri 175 mcg/3 mL solution for nebulization 175 mcg inhalation DAILY Qty: 90 6RF formoterol fumarate [Perforomist] 20 mcg/2 mL solution for nebulization 2 ml inhalation BID Qty: 120 6RF Tradjenta 5 mg tablet 5 mg PO QPM Qty: 90 1RF citalopram 10 mg tablet See Rx Instructions .ROUTE .COMPLEX Qty: 90 0RF Dose Instruction: TAKE 1 TABLET BY MOUTH ONCE DAILY ( TAKE WITH 20 MG) Rx Instructions: TAKE 1 TABLET BY MOUTH DAILY ALONG WITH 20MG TO= 30MG DAILY diltiazem HCl 240 mg capsule,extended release 24 hr 240 mg PO DAILY 30 Days Qty: 30 2RF albuterol sulfate 90 mcg/actuation HFA aerosol inhaler 2 puff inhalation Q4H PRN (Reason: Shortness Of Breath) Qty: 8.5 6RF tamsulosin 0.4 mg capsule 0.4 mg PO QPM allopurinol 300 mg tablet 150 mg PO QAM citalopram 20 mg tablet See Rx Instructions .ROUTE .COMPLEX Qty: 90 1RF Dose Instruction: TAKE 1 TABLET BY MOUTH ONCE DAILY IN THE MORNING Rx Instructions: TAKE 1 TABLET BY MOUTH ONCE DAILY IN THE MORNING ALONG WITH 10MG TO =30MG DAILY Calcium 500 500 mg calcium (1,250 mg) Tablet,Chewable 500 mg PO BID atorvastatin 20 mg tablet 20 mg PO DAILY warfarin 3 mg tablet 3 mg PO DAILY 30 Days Qty: 30 0RF Protocol: Dose Management Condition: Sunday Dose/Route: 3 mg Instruction: 1 x 3 mg tablet Condition: Sunday Dose/Route: 3 mg Instruction: 1 x 3 mg tablet Condition: Sunday Dose/Route: 3 mg Instruction: 1 x 3 mg tablet Condition: Sunday Dose/Route: 3 mg Instruction: 1 x 3 mg tablet Condition: Dose/Route: 3 mg Instruction: 1 x 3 mg tablet Condition: Sunday Dose/Route: 3 mg Instruction: 1 x 3 mg tablet Condition: Sunday Dose/Route: 3 mg Instruction: 1 x 3 mg tablet Protocol Text: Adjustment Start Date: Sunday08/20/23 INR Value: 1.9 INR Date: 08/20/23 Recheck Date: 08/27/23 Changed furosemide 20 mg tablet 20 mg PO QAM 30 Days Qty: 30 0RF potassium chloride 10 mEq tablet extended release 10 meq PO DAILY 30 Days Qty: 30 0RF Discontinued amoxicillin 250 mg capsule 250 mg PO Q8H Qty: 30 1RF warfarin 2 mg tablet 2 mg PO DIRECTED Qty: 90 3RF Hold Instructions: Resume on 05/22/23. Protocol: Dose Management Condition: Sunday Dose/Route: 3 mg Instruction: 1 x 3 mg tablet Condition: Sunday Dose/Route: 3 mg Instruction: 1 x 3 mg tablet Condition: Sunday Dose/Route: 3 mg Instruction: 1 x 3 mg tablet Condition: Sunday Dose/Route: 3 mg Instruction: 1 x 3 mg tablet Condition: Dose/Route: 3 mg Instruction: 1 x 3 mg tablet Condition: Sunday Dose/Route: 3 mg Instruction: 1 x 3 mg tablet Condition: Sunday Dose/Route: 3 mg Instruction: 1 x 3 mg tablet Protocol Text: Adjustment Start Date: Sunday08/20/23 INR Value: 1.9 INR Date: 08/20/23 Recheck Date: 08/27/23 Rx Instructions: Take 1 tablet on Sun, , Sunday, Sat, and Sun. olmesartan 5 mg tablet 5 mg PO QAM Discharge Orders: Discharge Order (Routine); Ordered 09/04/23 Ordered By: Je Rodriguez Referrals: Autumn Pierre DO [Primary Care Provider] - 09/07/23 (We have notified your physician's clinic of the need for a follow-up appointment to be scheduled. If you have not heard from them within the next 2 business days, please call them directly. ) Discharge Diet: Cardiac Discharge Activity: Resume usual activity Patient Instructions: Opioid Safety Activity Restrictions/Additional Instructions: - Coumadin continue 3 mg daily, recheck INR in 1 week on Sunday through Dr. Pierre's office -As your INR is subtherapeutic at 1.09, we will need to bridge you with subcu Lovenox -Recheck INR on Sunday, recheck INR next Sunday through primary care ? Please inject subcu Lovenox once daily 80 mg ? Once your INR is greater than 2, you will stop Lovenox ? But you will continue Coumadin ? Your Coumadin dose will be adjusted by Dr. Pierre ? For your type 2 diabetes mellitus inject Lantus 20 units, subcu, daily -As your blood sugars improved, your need of Lantus might decrease please follow-up with primary care -Please monitor your blood sugars closely -Monitor your blood sugars 3 times daily as after meals -Please record your blood sugars, and a blood sugar log -For your NovoLog -Please inject blood sugar after meals based on sliding scale provided -Do not inject insulin if you do not eat as hypoglycemia kills -This is a NovoLog sliding scale -Insulin sliding ?fingerstick? Insulin ?141-180?0 units/sq 181-220?2 units/sq ?221-260?4 units/sq ?261-300 6 units/sq ?301-350?8 units/sq ?351-400 10 units/sq ?401-450?12 units/sq >450? 14units/sq -If your blood sugar is greater than 500 go to the emergency room -If your blood sugar is less than 60 or at anytime you feel lightheaded or dizzy or diaphoretic or have chest palpitations check your blood sugar, and eat a hard candy or drink orange juice and go immediately to the emergency room -Remember hypoglycemia kills, so if his blood sugar is less than 60 we have to increase it by taking in a sugary meal such as a hard candy or orange juice and go to the emergency room -If you have any questions please call us where here to help -Please have your primary care provider recheck your creatinine on Sunday you can resume your Lasix 20 mg once daily starting tomorrow with potassium deep cement therapy Discharge Attestations Time Spent in Discharge Care*: greater than 30 min Quality Metrics Clinical Quality Measures [ No reported AMI, CVA or VTE this stay] Coding Level of Care Code 07847 Total time (in minutes) for Discharge: 45 Diagnoses Acute kidney injury superimposed on chronic kidney disease N17.9; N18.9
[2023-09-04 11:09] LABS: Glucose Point of Care 141 mg/dL (70-110)
[2023-09-07 04:30] LABS: Beta-Hydroxybutyrate 0.07 mmol/L
== END 2023-09-04 13:29 | disposition home or self-care (01) | DRG 193 ==
LOC: ER 17:18 → MEDSURG 17:59
PROVIDERS: Admitting Provider Internal Medicine; Emergency Provider Emergency Medicine; PCP Family Medicine; Visit Provider Family Medicine
DX: J18.9 Pneumonia, unspecified organism (principal); I50.33 Acute on chronic diastolic (congestive) heart failure; J96.21 Acute and chronic respiratory failure with hypoxia; J44.0 Chronic obstructive pulmonary disease with (acute) lower respiratory infection; I13.0 Hypertensive heart and chronic kidney disease with heart failure and stage 1 through stage 4 chronic kidney disease, or unspecified chronic kidney disease; N17.9 Acute kidney failure, unspecified; E87.1 Hypo-osmolality and hyponatremia; I48.20 Chronic atrial fibrillation, unspecified; C91.10 Chronic lymphocytic leukemia of B-cell type not having achieved remission; J44.1 Chronic obstructive pulmonary disease with (acute) exacerbation; Z99.81 Dependence on supplemental oxygen; Z87.891 Personal history of nicotine dependence; E11.22 Type 2 diabetes mellitus with diabetic chronic kidney disease; N18.30 Chronic kidney disease, stage 3 unspecified; Z79.01 Long term (current) use of anticoagulants; K59.09 Other constipation; F32.A Depression, unspecified; E78.5 Hyperlipidemia, unspecified; K21.9 Gastro-esophageal reflux disease without esophagitis; N40.0 Benign prostatic hyperplasia without lower urinary tract symptoms; M10.9 Gout, unspecified; Z79.4 Long term (current) use of insulin; E11.65 Type 2 diabetes mellitus with hyperglycemia; T38.0X5A Adverse effect of glucocorticoids and synthetic analogues, initial encounter
CPT/HCPCS: 36415; 36416; 51798; 71045; 76770; 80053; 80202; 81001; 82010; 82947; 82962; 83605; 83735; 83880; 84100; 84443; 84484; 85007; 85025; 85027; 85610; 85730; 87040; 87086; 87426; 87804; 93005; 93970; 94640; 94664; 96365; 96367; 96372; 97161; 97530; 99285; C9113; J0456; J0692; J0696; J1650; J1815; J1940; J2930; J3370; J7050; P9046; Q3014

== ENCOUNTER → 2023-09-07 09:27 | Outpatient (BNVA) | payer MEDICARE, BC, SELFPAY | PROVIDERS: PCP Family Medicine; Visit Provider Family Medicine | DX: C91.10 Chronic lymphocytic leukemia of B-cell type not having achieved remission (principal); I50.33 Acute on chronic diastolic (congestive) heart failure | CPT/HCPCS: 80048 ==

== ENCOUNTER → 2023-09-25 14:41 | Outpatient (BNVA) | payer MEDICARE, BC, SELFPAY | PROVIDERS: PCP Family Medicine; Visit Provider Family Medicine | DX: J44.9 Chronic obstructive pulmonary disease, unspecified (principal); I50.33 Acute on chronic diastolic (congestive) heart failure; I48.0 Paroxysmal atrial fibrillation | CPT/HCPCS: 80048 ==

== ENCOUNTER 2023-10-04 11:40 | Oncology outpatient (recurring) (ONCR) | payer MEDICARE, BC, SELFPAY ==
[2023-10-04 12:13] LABS: Basophils # 0.1 10^3/uL (0.0-0.1); Basophils % 0.5 %; Eosinophils # 0.4 10^3/uL (0.0-0.8); Eosinophils % 2.8 %; Hematocrit 43.1 % (37-53); Lymphocytes # 3.5 10^3/uL (0.8-4.8); Lymphocytes % 27.4 %; Mean Corpuscular HGB Conc 31.8 g/dL (30-55); Mean Corpuscular Hemoglobin 29.8 pg (27-33); Mean Corpuscular Volume 93.9 fl (82-101); Mean Platelet Volume 9.1 fL (7.4-10.4); Monocytes # 1.2 10^3/uL (0.2-0.9); Monocytes % 9.1 %; Neutrophils # 7.49 10^3/uL (1.8-7.7); Neutrophils % 58.5 %; Nucleated Red Blood Cells % 0 %; Platelet Count 272 10^3/cmm (157-399); Red Blood Count 4.59 10^6/uL (3.85-5.65); Red Cell Distribution Width 13.3 % (12.1-15.1); White Blood Count 12.79 10^3/uL (3.29-11.43)
[2023-10-04 12:37] LABS: Alanine Aminotransferase 18 U/L (0-41); Albumin Level 3.8 g/dL (3.5-5.2); Alkaline Phosphatase 139 U/L (40-130); Anion Gap 17.3 (5-19); Aspartate Amino Transferase 14 U/L (0-40); Blood Urea Nitrogen 32 mg/dL (8-23); Calcium 9.2 mg/dL (8.5-10.5); Carbon Dioxide 24 mmol/L (22-29); Chloride 104 mmol/L (98-107); Globulin 2.8 g/dL (1.3-4.6); Glucose 128 mg/dL (65-115); Lactate Dehydrogenase 386 U/L (135-225); Osmolality Calculated 299 mOsm/kg (285-295); Potassium 5.3 mmol/L (3.5-5.1); Sodium 140 mmol/L (136-145); Total Bilirubin 0.2 mg/dL (0.15-1.2); Total Protein 6.6 g/dL (6.6-8.7)
[2023-10-04 12:43] LABS: Creatinine Clr Calc Pharmacy 35.6336
== END 2023-10-07 23:59 | disposition home or self-care (01) ==
PROVIDERS: Internal Medicine Medical Oncology; PCP Family Medicine; Visit Provider Internal Medicine Medical Oncology
DX: C91.10 Chronic lymphocytic leukemia of B-cell type not having achieved remission (principal); Z79.899 Other long term (current) drug therapy
CPT/HCPCS: 36415; 80053; 83615; 85025; 99214

== ENCOUNTER → 2023-10-26 10:10 | Outpatient (BNVA) | payer MEDICARE, BC, SELFPAY | PROVIDERS: PCP Family Medicine; Visit Provider Family Medicine | DX: I50.33 Acute on chronic diastolic (congestive) heart failure (principal) | CPT/HCPCS: 80048 ==

== ENCOUNTER → 2023-11-08 14:05 | Outpatient (BNVA) | payer MEDICARE, BC, SELFPAY | PROVIDERS: PCP Family Medicine; Visit Provider Podiatrist Foot & Ankle Surgery | DX: L60.3 Nail dystrophy (principal); G62.9 Polyneuropathy, unspecified; E11.42 Type 2 diabetes mellitus with diabetic polyneuropathy; Z79.4 Long term (current) use of insulin | CPT/HCPCS: 11721; 99203 ==

== ENCOUNTER 2023-11-15 09:43 | Outpatient (CLI) | payer MEDICARE, BC, SELFPAY ==
[2023-11-15 10:07] LABS: Basophils # 0.1 10^3/uL (0.0-0.1); Basophils % 0.4 %; Eosinophils # 1.3 10^3/uL (0.0-0.8); Eosinophils % 8.3 %; Hematocrit 41.1 % (37-53); Lymphocytes # 5.2 10^3/uL (0.8-4.8); Lymphocytes % 33.4 %; Mean Corpuscular HGB Conc 32.6 g/dL (30-55); Mean Corpuscular Hemoglobin 30.3 pg (27-33); Mean Platelet Volume 8.8 fL (7.4-10.4); Monocytes % 6.3 %; Neutrophils # 7.95 10^3/uL (1.8-7.7); Neutrophils % 50.8 %; Nucleated Red Blood Cells % 0 %; Platelet Count 236 10^3/cmm (157-399); Red Blood Count 4.42 10^6/uL (3.85-5.65); Red Cell Distribution Width 14.4 % (12.1-15.1); White Blood Count 15.61 10^3/uL (3.29-11.43)
[2023-11-15 10:31] LABS: Albumin Level 3.9 g/dL (3.5-5.2); Blood Urea Nitrogen 37 mg/dL (8-23); Calcium 8.9 mg/dL (8.5-10.5); Carbon Dioxide 29 mmol/L (22-29); Glucose 125 mg/dL (65-115)
[2023-11-15 10:36] LABS: Parathyroid Hormone 62.7 pg/mL (15-65)
[2023-11-15 10:49] LABS: Anion Gap 13.8 (5-19); Chloride 104 mmol/L (98-107); Potassium 4.8 mmol/L (3.5-5.1); Sodium 142 mmol/L (136-145)
== END 2023-11-15 09:44 | disposition home or self-care (01) ==
LOC: LAB 09:46
PROVIDERS: Registered Nurse; PCP Family Medicine; Visit Provider Family Medicine
DX: N18.31 Chronic kidney disease, stage 3a (principal)
CPT/HCPCS: 36415; 80069; 82310; 83970; 85025

== ENCOUNTER 2023-11-19 10:39 | Outpatient (CLI) | payer MEDICARE, BC, SELFPAY ==
[2023-11-20 09:26] LABS: Creatinine Urine, Random 110 mg/dL (39-259); Microalbumin Random Urine 9 ug/dL (0-20)
[2023-11-20 09:27] LABS: Microalbum Creatinine Ratio Ur 82 mg/dL (0-20)
== END 2023-11-19 10:40 | disposition home or self-care (01) ==
PROVIDERS: PCP Family Medicine; Visit Provider Registered Nurse
DX: N18.31 Chronic kidney disease, stage 3a (principal)
CPT/HCPCS: 82044

== ENCOUNTER → 2023-12-13 14:11 | Outpatient (BNVA) | payer MEDICARE, BC, SELFPAY | PROVIDERS: PCP Family Medicine; Visit Provider Internal Medicine Pulmonary Disease | DX: I13.0 Hypertensive heart and chronic kidney disease with heart failure and stage 1 through stage 4 chronic kidney disease, or unspecified chronic kidney disease (principal); N18.4 Chronic kidney disease, stage 4 (severe); Z87.891 Personal history of nicotine dependence; I50.33 Acute on chronic diastolic (congestive) heart failure; J44.9 Chronic obstructive pulmonary disease, unspecified; J98.6 Disorders of diaphragm | CPT/HCPCS: 80061; 83036; 99214 ==

== ENCOUNTER 2023-12-29 08:22 | Observation (INO) | payer MEDICARE, BC, SELFPAY ==
[2023-12-29] VITALS (13 sets, daily range): BP systolic 121–184; BP diastolic 3–88; PULSE 71–137; RESP 17–26; TEMP 36.6–36.9; O2SAT 92–98; BMI 25.7
--- NOTE | 2023-12-29 08:30 | ECG_ITS ---
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 Measurements Intervals [place] Rate: 129 P: 0 MA: 0 QRS: 35 QRSD: 81 T: 71 QT: 284 QTc: 417 Interpretive Statements ATRIAL FIBRILLATION WITH RAPID VENTRICULAR RESPONSE POSSIBLE RIGHT VENTRICULAR CONDUCTION DELAY [RSR (QR) IN V1/V2] SEPTAL MYOCARDIAL INFARCTION , OF INDETERMINATE AGE [40+ ms Q WAVE IN V1/V2] Compared to ECG 08/30/2023 20:49:04 Myocardial infarct finding now present Sinus rhythm no longer present T-wave abnormality no longer present Electronically Signed On 12-30-2023 9:51:43 CDT by Andrew Antonio M.D. [id number]
--- NOTE | 2023-12-29 08:31 | XRR_ITS ---
PROCEDURE INFORMATION: Exam: XR Chest Exam date and time: 12/29/2023 8:39 AM Age: 83 years old Clinical indication: Shortness of breath; Patient HX: Arrives with C/O increased SOB this am. States that he has been coughing up clear sputum for weeks. This morning he could not catch his breath. Wears 3l nc at baseline and had sats 89%. EMS gave duoneb enroute and sats improved to 96% PT did have aflutter on there monitor. HX copd/ dm TECHNIQUE: Imaging protocol: Radiologic exam of the chest. Views: 1 view. COMPARISON: CR XR chest 1V portable [id number] 08/30/2023 2:26 PM FINDINGS: Lungs: Unchanged bilateral bullous emphysema. Decreased atelectasis, edema, and/or pneumonitis in the lung bases. Pleural spaces: Unremarkable. No pleural effusion. No pneumothorax. Heart/Mediastinum: Unremarkable. No cardiomegaly. Bones/joints: Unchanged mild scoliosis with mild multilevel spondylosis. Unchanged surgical hardware attached to the cervical spine. XR/XR chest 1V portable [id number] IMPRESSION: 1. Decreased atelectasis, edema, and/or pneumonitis in the lung bases. 2. Unchanged bilateral bullous emphysema.
--- NOTE | 2023-12-29 08:52 | ED_ITS ---
HPI - SOB/Dyspnea 2 General: Chief Complaint: Shortness of Breath/Dyspnea Stated Complaint: SOB Time Seen by Provider: 12/29/23 08:27 History of Present Illness: HPI Narrative: 83-year-old male presents with chronic s hortness of breath this been going on for a very long time. He reports this morning it was a lot worse. That he could not breathe patient reports that he had to sleep in a chair for a long time due to it. Patient was given a DuoNeb in route and does feel significantly better. Associated symptoms: Reports palpitations; Deny abdominal pain, chest pain, fever(s), nausea or vomiting Review of Systems 2 Const: Denies: fever(s) or chills Card: Reports: palpitations; Denies: chest pain Resp: Reports: dyspnea, non-productive cough and wheezing GI: Denies: abdominal pain, nausea or vomiting Skin/Breast: Denies: rash PFSH ED 2 PFSH: Medical History Acute and chronic respiratory failure with hypoxia CLL (chronic lymphocytic leukemia) GERD (gastroesophageal reflux disease) Bronchitis Type 2 diabetes mellitus without complications Delirium Frontal lobe dementia Word finding difficulty Displaced fracture of right femoral neck Hyperkalemia Closed fracture of right hip Depression Acute exacerbation of chronic obstructive airways disease CKD (chronic kidney disease), stage IV Viral upper respiratory infection Atrial fibrillation with rapid ventricular response Pneumonia Lymphocytosis Bradycardia Long-term (current) use of anticoagulants, INR goal 2.0-3.0 Dyslipidemia Edema leg COPD (chronic obstructive pulmonary disease) CKD (chronic kidney disease) Pain in right knee Atopic dermatitis, unspecified Gout, unspecified CAP (community acquired pneumonia) Orthopnea Unspecified atrial fibrillation Essential (primary) hypertension Pain in left finger(s) Surgical History History of right hip replacement History of left hip replacement Dr. Bennett - 11/2021 at [place], [place] History of prostate surgery History of total knee replacement bilateral History of cholecystectomy Family History Other Cancer Hypertension Lung disease Denies family history of Diabetes CAD (coronary artery disease) Clotting disorder Dementia Hyperlipidemia Psychiatric illness Chronic kidney disease (CKD) Suicide Anesthesia complication Bleeding disorder Stroke Social History Smoking and tobacco/nicotine status: former use of tobacco/nicotine Quit status (tobacco/nicotine): has quit using Year quit tobacco: 2010 - 1PPD x 50 Years Second hand smoke exposure: No Alcohol intake: current Substance/Drug Use: never Lives independently: Yes Household members: spouse Marital status: Current occupational status: retired Do you think of yourself as: Straight/Heterosexual Current gender identity: Male Physical Exam 2 Const: COMMON NORMALS: no acute distress, patient oriented x3 and alert Resp: AUSCULTATION: wheezes and diminished lung sounds Cardio: RATE: tachycardic RHYTHM: abnormal rhythm GI: COMMON NORMALS: Soft to palpation and non-tender PALPATION: Yes Soft to palpation Neuro: COMMON NORMALS: patient oriented x3, no focal motor deficits and no sensory deficits noted SENSORIUM/ORIENTATION: Yes alert Psych: COMMON NORMALS: mental status grossly normal, cooperative and normal affect Course 2 Vital Signs: Vital signs: Vital Signs Temperature 98.4 F 12/29/23 08:25 Pulse Rate 86 12/29/23 10:47 Respiratory Rate 17 12/29/23 10:47 Blood Pressure 171/83 12/29/23 10:47 Pulse Oximetry 98 12/29/23 10:47 Oxygen Delivery Me thod Nasal Cannula 12/29/23 10:47 Oxygen Flow Rate 3 12/29/23 10:47 MDM - SOB/Dyspnea Medical Decision Making Patient's diagnostics ordered reviewed and interpreted by me. Patient present with atrial for with RVR with a known history of atrial fibs. Patient was given DuoNeb in route and had improvement. Patient was then given Cardizem and had appropriate response with return to normal sinus rhythm. Patient will be admitted to Dr. Garcia for further inpatient management with COPD with exacerbation with atrial for with RVR. Patient's white count is elevated however he has CLL and this is near his baseline. Patient's chest x-ray does not show any acute changes. Patient was stable upon admission. Lab Data 12/29/23 08:48 12/29/23 08:48 Labs/Radiology: Radiology Impressions Chest X-Ray 12/29/23 08:31 IMPRESSION: 1. Decreased atelectasis, edema, and/or pneumonitis in the lung bases. 2. Unchanged bilateral bullous emphysema. Laboratory Results WBC 18.50 10^3/uL (3.29-11.43) H 12/29/23 08:48 RBC 3.84 10^6/uL (3.85-5.65) L 12/29/23 08:48 Hgb 11.50 g/dL (11.27-16.99) 12/29/23 08:48 Hct 36.8 % (37-53) L 12/29/23 08:48 MCV 95.8 fl (82-101) 12/29/23 08:48 MCH 29.9 pg (27-33) 12/29/23 08:48 MCHC 31.3 g/dL (30-55) 12/29/23 08:48 RDW 14.5 % (12.1-15.1) 12/29/23 08:48 Plt Count 282 10^3/cmm (157-399) 12/29/23 08:48 MPV 8.6 fL (7.4-10.4) 12/29/23 08:48 Neut % (Auto) 71.0 % 12/29/23 08:48 Lymph % (Auto) 17.8 % 12/29/23 08:48 Hendry % (Auto) 5.5 % 12/29/23 08:48 Eos % (Auto) 5.0 % 12/29/23 08:48 Baso % (Auto) 0.3 % 12/29/23 08:48 Neut # (Auto) 13.15 10^3/uL (1.8-7.7) H 12/29/23 08:48 Lymph # (Auto) 3.3 10^3/uL (0.8-4.8) 12/29/23 08:48 Hendry # (Auto) 1.0 10^3/uL (0.2-0.9) H 12/29/23 08:48 Eos # (Auto) 0.9 10^3/uL (0.0-0.8) H 12/29/23 08:48 Baso # (Auto) 0.1 10^3/uL (0.0-0.1) 12/29/23 08:48 Nucleated RBC % (auto) 0 % 12/29/23 08:48 Nucleated RBCs # 0.0 /100WBC 12/29/23 08:48 PT 31.00 SECONDS (12.1-14.9) H 12/29/23 08:48 INR 2.85 (0.8-1.2) H 12/29/23 08:48 Sodium 138 mmol/L (136-145) 12/29/23 08:48 Potassium 5.0 mmol/L (3.5-5.1) 12/29/23 08:48 Chloride 101 mmol/L (98-107) 12/29/23 08:48 Carbon Dioxide 26 mmol/L (22-29) 12/29/23 08:48 Anion Gap 16.0 (5-19) 12/29/23 08:48 BUN 31 mg/dL (8-23) H 12/29/23 08:48 Creatinine 1.7 mg/dL (0.7-1.2) H 12/29/23 08:48 GFR Calculation Not Reportable 12/29/23 08:48 Glucose 152 mg/dL (65-115) H 12/29/23 08:48 Calculated Osmolality 296 mOsm/kg (285-295) H 12/29/23 08:48 Calcium 9.3 mg/dL (8.5-10.5) 12/29/23 08:48 All radiology interpretation(s) finalized by discharge EKG Data EKG 1: I personally reviewed and interpreted this EKG as follows: EKG Interpretation Date: 12/29/23 EKG interpretation time: 08:30 Interpretation: Atrial for with RVR, heart rate 129, QTc 360. No acute ST changes or elevation noted. Discharge Plan Discharge Patient Disposition: Admitted As Inpatient Clinical Impression: Paroxysmal atrial fibrillation with RVR, COPD with acute exacerbation Condition: Stable Coding Level of Care Code ED Entry Level Accountant for 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
[2023-12-29 08:54] LABS: Basophils # 0.1 10^3/uL (0.0-0.1); Basophils % 0.3 %; Eosinophils # 0.9 10^3/uL (0.0-0.8); Hematocrit 36.8 % (37-53); Lymphocytes # 3.3 10^3/uL (0.8-4.8); Lymphocytes % 17.8 %; Mean Corpuscular HGB Conc 31.3 g/dL (30-55); Mean Corpuscular Hemoglobin 29.9 pg (27-33); Mean Corpuscular Volume 95.8 fl (82-101); Mean Platelet Volume 8.6 fL (7.4-10.4); Monocytes % 5.5 %; Neutrophils # 13.15 10^3/uL (1.8-7.7); Nucleated Red Blood Cells % 0 %; Platelet Count 282 10^3/cmm (157-399); Red Blood Count 3.84 10^6/uL (3.85-5.65); Red Cell Distribution Width 14.5 % (12.1-15.1)
[2023-12-29] MEDS: dilTIAZem 5 mg/mL SDV 5 mL 20 MG IVP (08:57)
[2023-12-29 09:07] LABS: INR 2.85 (0.8-1.2)
[2023-12-29 09:15] LABS: Chloride 101 mmol/L (98-107); Sodium 138 mmol/L (136-145)
[2023-12-29] MEDS: ipratropium-albuterol 3 mL Neb INHALATION ×3 (09:15→19:30)
[2023-12-29 09:28] LABS: Blood Urea Nitrogen 31 mg/dL (8-23); Calcium 9.3 mg/dL (8.5-10.5); Carbon Dioxide 26 mmol/L (22-29); Glucose 152 mg/dL (65-115); Osmolality Calculated 296 mOsm/kg (285-295)
--- NOTE | 2023-12-29 10:15 | PM.HP ---
Providers/Chief Complaint Primary Care Provider: Autumn Pierre DO Chief Complaint: SOB History of Present Illness Jesús Cole is a 83 year old male With past medical history of COPD Gold class D with recent pneumonia, COPD exacerbation A-fib RVR presented to the hospital today with complaint of shortness of breath. Patient is now on triple labs which have significantly improved his breathing. He states he has been using it religiously. He presented to the ER shortness of breath. Also has a history of CLL, type 2 diabetes mellitus, frontal lobe dementia, CKD, hypertension, hip fracture in the past. He was recently seen by pulmonology earlier this month and his Cardizem was increased to 240 once daily and he was discharged on 7 days of Levaquin for Pseudomonas pneumonia. Respiratory cultures showed Achromobacter. He is on warfarin for anticoagulation. 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 He has difficulty clearing secretions due to diaphragmatic dysfunction due to hyperinflation. He has had chronic productive cough for more than 6 months. He is encouraged to use Mucinex twice daily as well as Acapella. He may benefit from chest vest. Today he states he just could not breathe. He had to sleep in a chair a long time due to it. He was given a DuoNeb in ER and he felt slightly better. He is on 2 L nasal cannula [id number] at home. Patient also was found to be in A-fib with RVR upon arrival and was given one-time dose of Cardizem 20 IV which converted him back to sinus rhythm. Medications/Allergies Home Medications Medication Instructions Recorded Confirmed Last Taken Type vit C 250 mg-vit E 90 mg-zinc 40 1 tab PO DAILY 08/19/21 12/13/23 08/30/23 History mg-copper 1 [id number] capsule (PreserVision AREDS-2) revefenacin 175 mcg/3 mL solution 175 mcg (3 mL) inhalation DAILY 04/18/23 12/13/23 08/30/23 Rx for nebulization (Rosie) COPD J44.9 #90 mL formoterol fumarate 20 mcg/2 mL 2 ml inhalation BID #120 mL 06/25/23 12/13/23 08/30/23 Rx solution for nebulization (Perforomist) calcium carbonate (Calcium 500) 500 mg PO BID 08/30/23 12/13/23 08/30/23 History insulin aspart U-100 100 unit/mL See Rx Instructions .Route 09/04/23 12/13/23 Unknown Rx (3 mL) subcutaneous pen (Novolog .COMPLEX #15 mL FlexPen U-100 Insulin aspart) warfarin 4 mg tablet 4 mg PO DAILY #30 tabs 09/11/23 12/27/23 Unknown Rx budesonide 0.5 mg/2 mL suspension 0.5 mg (2 mL) inhalation BID COPD 09/25/23 12/13/23 Unknown Rx for nebulization J44.9 #120 mL enoxaparin 80 mg/0.8 mL 80 mg (0.8 mL) SUBCUT DAILY 2 09/25/23 12/13/23 Unknown Rx subcutaneous syringe weeks #11.2 mL enoxaparin 80 mg/0.8 mL 80 mg SUBCUT DAILY 09/25/23 12/13/23 Unknown History subcutaneous syringe citalopram 20 mg tablet See Rx Instructions .Route 10/04/23 12/13/23 Unknown Rx .COMPLEX #90 tabs olmesartan 5 mg tablet mg PO 10/04/23 12/13/23 Unknown History allopurinol 300 mg tablet See Rx Instructions .Route 10/10/23 12/13/23 Unknown Rx .COMPLEX #45 tabs diltiazem HCl 240 mg capsule,24 See Rx Instructions .Route 10/16/23 12/13/23 Unknown Rx hr,extended release .COMPLEX #90 caps furosemide 20 mg tablet See Rx Instructions .Route 10/30/23 12/13/23 Unknown Rx .COMPLEX #60 tabs warfarin 3 mg tablet 3 mg PO DIRECTED #90 tabs 11/09/23 12/27/23 Unknown Rx potassium chloride 10 mEq See Rx Instructions .Route 11/12/23 12/13/23 Unknown Rx tablet,extended release .COMPLEX #90 tabs citalopram 10 mg tablet See Rx Instructions .Route 11/19/23 12/13/23 Unknown Rx .COMPLEX #90 tabs atorvastatin 20 mg tablet See Rx Instructions .Route 12/14/23 Unknown Rx .COMPLEX #90 tabs linagliptin 5 mg tablet (Tradjenta) 5 mg PO QPM #90 tabs 12/14/23 Unknown Rx albuterol sulfate 90 mcg/actuation 2 puff inhalation Q4H PRN 12/24/23 Unknown Rx aerosol inhaler Shortness Of Breath #8.5 grams ipratropium 0.5 mg-albuterol 3 mg 3 ml inhalation Q6H PRN shortness 12/24/23 Unknown Rx (2.5 mg base)/3 mL nebulization of breath or wheezing #180 mL soln tamsulosin 0.4 mg capsule See Rx Instructions .Route 12/25/23 Unknown Rx .COMPLEX #90 caps Allergies Allergy/AdvReac Type Severity Reaction Status Date / Time No Known Allergies Allergy Verified 12/29/23 08:34 PFSH Acute PFSH: Medical History Acute and chronic respiratory failure with hypoxia CLL (chronic lymphocytic leukemia) GERD (gastroesophageal reflux disease) Bronchitis Type 2 diabetes mellitus without complications Delirium Frontal lobe dementia Word finding difficulty Displaced fracture of right femoral neck Hyperkalemia Closed fracture of right hip Depression Acute exacerbation of chronic obstructive airways disease CKD (chronic kidney disease), stage IV Viral upper respiratory infection Atrial fibrillation with rapid ventricular response Pneumonia Lymphocytosis Bradycardia Long-term (current) use of anticoagulants, INR goal 2.0-3.0 Dyslipidemia Edema leg COPD (chronic obstructive pulmonary disease) CKD (chronic kidney disease) Pain in right knee Atopic dermatitis, unspecified Gout, unspecified CAP (community acquired pneumonia) Orthopnea Unspecified atrial fibrillation Essential (primary) hypertension Pain in left finger(s) Surgical History History of right hip replacement History of left hip replacement Dr. Bennett - 11/2021 at [place], [place] History of prostate surgery History of total knee replacement bilateral History of cholecystectomy Family History Other Cancer Hypertension Lung disease Denies family history of Diabetes CAD (coronary artery disease) Clotting disorder Dementia Hyperlipidemia Psychiatric illness Chronic kidney disease (CKD) Suicide Anesthesia complication Bleeding disorder Stroke Social History Smoking and tobacco/nicotine status: former use of tobacco/nicotine Quit status (tobacco/nicotine): has quit using Year quit tobacco: 2009 - 1PPD x 50 Years Second hand smoke exposure: No Alcohol intake: current Substance/Drug Use: never Lives independently: Yes Household members: spouse Marital status: Current occupational status: retired Do you think of yourself as: Straight/Heterosexual Current gender identity: Male Vitals/I&O/Wt Last Vital Signs Temp 98.4 F 12/29/23 08:25 Pulse 90 12/29/23 09:16 Resp 18 12/29/23 09:16 BP 121/62 12/29/23 09:00 Pulse Ox 95 12/29/23 09:16 O2 Del Method High Flow Nasal Cannula 12/29/23 09:16 O2 Flow Rate 4 12/29/23 09:16 Weight last 48 hrs Weight 85.275 kg Physical Exam Narrative: General: Alert oriented x3, patient seen sitting up in bed on 2 L nasal cannula. HEENT: Normocephalic, atraumatic, EOMI, breathing comfortably, no acute respiratory distress. Cardio: Regular rate rhythm, normal S1-S2, sinus rhythm at this time. Respiratory: Mainly clear to auscultation however mild wheezes rhonchi present. GI: Abdomen soft, nontender, nondistended, bowel sounds + Behavior: Appropriate and cooperative Extremities: Trace edema bilateral lower extremities. Data 12/29/23 08:48 12/29/23 08:48 A&P Assessment and plan (1) Essential (primary) hypertension: (2) Acute on chronic heart failure with preserved ejection fraction (HFpEF): (3) Paroxysmal atrial fibrillation with RVR: (4) Dyslipidemia: (5) Mixed hyperlipidemia: (6) Type 2 diabetes mellitus without complications: Qualifiers: Diabetes mellitus watermaster insulin use: without watermaster use Qualified Code(s): E11.9 - Type 2 diabetes mellitus without complications (7) GERD (gastroesophageal reflux disease): Qualifiers: Esophagitis presence: esophagitis presence not specified Qualified Code(s): K21.9 - Gastro-esophageal reflux disease without esophagitis (8) CLL (chronic lymphocytic leukemia): (9) Lymphocytosis: (10) Bronchitis: (11) COPD (chronic obstructive pulmonary disease): Qualifiers: COPD type: unspecified COPD Qualified Code(s): J44.9 - Chronic obstructive pulmonary disease, unspecified (12) Acute and chronic respiratory failure with hypoxia: (13) Diaphragm dysfunction: Plan #COPD exacerbation, Gold class COPD on triple nebs at home #[id number]-pvj-phasc oxygen 2 L #Diastolic heart failure #Atrial fibrillation with RVR #Chronic anticoagulation with warfarin #CKD, no evidence of ZONIA #Recent pneumonia with Pseudomonas Achromobacter #CLL #Type 2 diabetes mellitus #Diaphragmatic dysfunction ? DuoNeb every 6 hours scheduled ? Budesonide 0.5 inhalation twice daily ? Chest vest therapy ? Acapella - Flutter valve - Azithromycin 500 mg daily ? Continue Lasix 20 IV daily ? Check BNP ? Placed on Solu-Medrol 40 every 8 hours ? White count 18,000 however that is chronically elevated secondary to patient's CLL ? Recently treated for pneumonia after factor, Pseudomonas. Completed 7 days of Levaquin. ? Will check sputum Gram stain culture and continue azithromycin for now. I do not believe there is pneumonia at this time. ? Monitor on telemetry. Continue home medications ? Continue warfarin. Check PT/INR. Pharmacy to dose warfarin dosing Full code DVT prophylaxis: On warfarin. Attestations Medical Necessity Statement*: Observation admission for COPD exacerbation. Most likely will be able to discharge prior to 48 hours. Should patient worsen will convert to inpatient admission. Diagnoses Essential (primary) hypertension I10 Acute on chronic heart failure with preserved ejection fraction (HFpEF) I50.33 Paroxysmal atrial fibrillation with RVR I48.0 Dyslipidemia E78.5 Mixed hyperlipidemia E78.2 Type 2 diabetes mellitus without complication, without long-term current use of insulin E11.9 Diabetes mellitus watermaster insulin use: without watermaster use Gastroesophageal reflux disease, unspecified whether esophagitis present K21.9 Esophagitis presence: esophagitis presence not specified CLL (chronic lymphocytic leukemia) C91.10 Lymphocytosis D72.820 Bronchitis J40 COPD (chronic obstructive pulmonary disease) J44.9 COPD type: unspecified COPD Acute and chronic respiratory failure with hypoxia J96.21 Diaphragm dysfunction J98.6
--- NOTE | 2023-12-29 10:28 | PC.NURSE ---
PER VERBAL ORDERS FROM DR ORDOÑEZ, NO BLOOD CULTURES DRAWN PRIOR TO STARTING ANTIBIOTICS.
[2023-12-29] MEDS: methylPREDNISolone sod succ 125 mg/2 mL INJ 80 MG IVP (10:44)
[2023-12-29] MEDS: azithromycin 500 MG in sodium chloride 0.9% 250 ML 250 MG IV (10:44)
--- NOTE | 2023-12-29 13:22 | USCV_ITS ---
Jesús Cole Age: 83 Gender: M : 1940 Exam Date: 12/29/2023 17:51 Ordering Phys: Jeni Garcia MD Technologist: Ta Johansen Exam Location: [facility] [place] Indication: afib BP: 148 / 76 HR: 75 Rhythm: Sinus Technical Quality: Adequate MEASUREMENTS (Male / Female) Normal Values 2D ECHO LV Diastolic Diameter PLAX 4.3 cm 4.2 - 5.9 / 3.9 - 5.3 cm IVS Diastolic Thickness 1.0 cm 0.6 - 1.0 / 0.6 - 0.9 cm IVS Systolic Thickness 1.6 cm LVPW Diastolic Thickness 1.1 cm 0.6 - 1.0 / 0.6 - 0.9 cm LVPW Systolic Thickness 1.6 cm LVOT Diameter 2.1 cm LV Ejection Fraction 2D Teich 91.8 % LV Ejection Fraction MOD 2C 66.1 % LV Ejection Fraction 2C AL 66.0 % LA Diameter 3.6 cm RA Systolic Volume 4C AL 36.4 ml RA Systolic Volume 4C MOD 35.9 ml LA Sys Volume AL 41.5 cm cubed LA Sys Volume Index AL 20.1 cm cubed/m squared Aorta at Sinotubular Diameter 3.0 cm IVC Diameter 1.7 cm M-MODE LA Ao Ratio MM 1.3 AV Cusp Separation MM 1.1 cm DOPPLER AV Peak Velocity 236.0 cm/s LVOT Peak Velocity 105.0 cm/s AV Area Cont Eq vti 2.0 cm squared AV Area Cont Eq pk 1.5 cm squared MV Peak Velocity 118.0 cm/s MV Area PHT 4.8 cm squared Mitral E to A Ratio 0.7 TV Peak Velocity 159.5 cm/s TR Peak Velocity 222.0 cm/s TR Peak Gradient 19.7 mmHg TR Mean Velocity 169.0 cm/s TR Mean Gradient 12.4 mmHg TR Velocity Time Integral 60.1 cm RV Ejection Time 0.2 s FINDINGS Left Ventricle Normal left ventricular size, systolic function and wall thickness, with no regional wall motion abnormalities. Grade I/IV diastolic dysfunction (abnormal relaxation filling pattern), normal to mildly elevated filling pressures. Left ventricular ejection fraction is estimated at 65 %. Right Ventricle Normal right ventricular size and systolic function. Right Atrium The right atrium is normal in size. Left Atrium The left atrium is normal in size. Mitral Valve Structurally normal mitral valve without significant stenosis or prolapse. There is no mitral regurgitation. Aortic Valve Aortic valve not well visualized. The valve is mildly calcified. There is no obvious restriction of leaflet motion. There is at minimum aortic sclerosis but due to the inability to adequately interrogate the valve aortic stenosis cannot be specifically noted. There is no aortic insufficiency. Tricuspid Valve Structurally normal tricuspid valve without significant stenosis or regurgitation. Pulmonary artery systolic pressure is normal. Pulmonic Valve Pulmonic valve not well visualized. Pericardium Normal pericardium without effusion. Aorta Normal ascending aorta dimension. IVC Inferior vena cava not visualized. CONCLUSIONS Normal left ventricular size, systolic function and wall thickness, with no regional wall motion abnormalities. Grade I/IV diastolic dysfunction (abnormal relaxation filling pattern), normal to mildly elevated filling pressures. Left ventricular ejection fraction is estimated at 65 %. Aortic valve not well visualized. The valve is mildly calcified. There is no obvious restriction of leaflet motion. There is at minimum aortic sclerosis but due to the inability to adequately interrogate the valve aortic stenosis cannot be specifically noted. There is no aortic insufficiency. Previous echo was May of last year. No change. Dr. Andrew Antonio MD (Electronically Signed) Final Date: 30 December 2023 08:38 S
[2023-12-29 14:24] LABS: NT Pro B Type Natriuretic Pept 132 pg/mL (0-450); Procalcitonin 0.17 ng/mL (0-0.5); Thyroid Stimulating Hormone 1.82 uIU/mL (0.27-4.20)
[2023-12-29 17:09] LABS: Glucose Point of Care 207 mg/dL (70-110)
[2023-12-29] MEDS: FUROsemide 10 mg/mL SDV 2mL 20 MG IVP (17:15)
[2023-12-29] MEDS: tamsulosin 0.4 mg Capsule PO (17:15)
[2023-12-29] MEDS: budesonide 0.5 mg/2 mL Neb INHALATION (19:30)
[2023-12-29] MEDS: methylPREDNISolone sod succ 40 mg/mL INJ IVP (21:23)
[2023-12-29] MEDS: metoprolol tartrate 25 mg Tablet PO (21:23)
--- NOTE | 2023-12-29 22:10 | PC.NURSE ---
Patient's heart rate up to 140s twice since my arrival on shift. This lasts approximately 2-3 minutes and then his heart rate comes patient down to the 90s. It appears to be sinus tachycardia. Patient is asymptomatic and resting in bed when this occurs. Per sep, patient received IV Cardizem this morning and will receive PO Cardizem tomorrow morning. Dr. Valenzuela notified and ordered 25 mg Metoprolol Tartrate PO x1.
[2023-12-30] VITALS (9 sets, daily range): BP systolic 155–175; BP diastolic 68–85; PULSE 68–98; RESP 18–20; TEMP 36.1–36.6; O2SAT 88–97
[2023-12-30 06:03] LABS: Basophils % 0.1 %; Hematocrit 35.5 % (37-53); Lymphocytes % 21.1 %; Mean Corpuscular HGB Conc 32.7 g/dL (30-55); Mean Corpuscular Hemoglobin 30.9 pg (27-33); Mean Corpuscular Volume 94.7 fl (82-101); Mean Platelet Volume 9.1 fL (7.4-10.4); Monocytes # 0.2 10^3/uL (0.2-0.9); Monocytes % 1.2 %; Neutrophils # 14.41 10^3/uL (1.8-7.7); Nucleated Red Blood Cells % 0 %; Platelet Count 298 10^3/cmm (157-399); Red Blood Count 3.75 10^6/uL (3.85-5.65); Red Cell Distribution Width 14.1 % (12.1-15.1); White Blood Count 18.73 10^3/uL (3.29-11.43)
[2023-12-30 06:18] LABS: INR 2.38 (0.8-1.2)
[2023-12-30 06:24] LABS: Anion Gap 16.2 (5-19); Blood Urea Nitrogen 41 mg/dL (8-23); Calcium 9.6 mg/dL (8.5-10.5); Carbon Dioxide 26 mmol/L (22-29); Chloride 103 mmol/L (98-107); Glucose 177 mg/dL (65-115); Osmolality Calculated 304 mOsm/kg (285-295); Potassium 5.2 mmol/L (3.5-5.1); Sodium 140 mmol/L (136-145)
--- NOTE | 2023-12-30 06:30 | PC.NURSE ---
Addendum entered by Kay Monzon RN 12/30/23 07:20: Dr. Garcia notified. Original Note: Home medication list updated via telephone with .
[2023-12-30] MEDS: allopurinol 300 mg Tablet 150 MG PO (07:58)
[2023-12-30] MEDS: pantoprazole DR 40 mg Tablet PO (07:58)
[2023-12-30] MEDS: citalopram 20 mg Tablet 30 MG PO (07:58)
[2023-12-30] MEDS: dilTIAZem ER (24HR) 240 mg Capsule PO (07:59)
[2023-12-30] MEDS: methylPREDNISolone sod succ 40 mg/mL INJ IVP (07:59)
[2023-12-30] MEDS: azithromycin 500 MG in sodium chloride 0.9% 250 ML 250 MG IV (07:59)
[2023-12-30] MEDS: budesonide 0.5 mg/2 mL Neb INHALATION (08:48)
[2023-12-30] MEDS: ipratropium-albuterol 3 mL Neb INHALATION ×2 (08:48→11:22)
--- NOTE | 2023-12-30 12:04 | PM.DCS ---
Discharge Providers Date of Admission: 12/29/23 10:20 Date of Discharge: December 30, 2023 Attending Provider at Admission: Jeni Garcia MD Attending Provider at Discharge: Jeni Garcia MD Primary Care Provider: Autumn Pierre DO Diagnoses at Discharge Discharge Diagnosis (1) Essential (primary) hypertension: Status: Chronic (2) Acute on chronic heart failure with preserved ejection fraction (HFpEF): Status: Acute (3) Paroxysmal atrial fibrillation with RVR: Status: Acute (4) Dyslipidemia: Status: Chronic (5) Mixed hyperlipidemia: Status: Acute (6) Type 2 diabetes mellitus without complications: Status: Acute Qualifiers: Diabetes mellitus fdc insulin use: without fdc use Qualified Code(s): E11.9 - Type 2 diabetes mellitus without complications (7) GERD (gastroesophageal reflux disease): Status: Acute Qualifiers: Esophagitis presence: esophagitis presence not specified Qualified Code(s): K21.9 - Gastro-esophageal reflux disease without esophagitis (8) CLL (chronic lymphocytic leukemia): Status: Acute (9) Lymphocytosis: Status: Acute (10) Bronchitis: Status: Acute (11) COPD (chronic obstructive pulmonary disease): Status: Acute Qualifiers: COPD type: unspecified COPD Qualified Code(s): J44.9 - Chronic obstructive pulmonary disease, unspecified (12) Acute and chronic respiratory failure with hypoxia: Status: Resolved (13) Diaphragm dysfunction: Status: Acute Reason for Visit Reason for Visit: SOB Hospital Course Hospital Course Patient was admitted for COPD exacerbation. He is on triple nebs at home already. He is on 2 L nasal cannula [id number]. Patient does have a history of CML. His white count was 18,000 which was his baseline. He was recently treated for pneumonia with Pseudomonas and has completed 7 days of Levaquin. Patient on warfarin at home. He was admitted for shortness of breath and treated with chest vest therapy azithromycin. Patient was discharged home on 5 days of prednisone. Patient stated that he was back to his baseline. Sent home in stable condition. He was given prescription for BMP to check in next few days as his potassium was 5.2. Repeat potassium was again 5.2. Creatinine 1.5 which is close to baseline. Patient stated he was excited to go home because he had family coming in from out of town. He was not willing to stay longer in the hospital. He stated he felt great. Family was also at bedside. Patient asked to return to ER if worsening shortness of breath. He is to follow-up with his primary care doctor for discharge. Physical Exam Narrative: General: Alert oriented x3, patient seen sitting up in bed on 2 L nasal cannula. HEENT: Normocephalic, atraumatic, EOMI, breathing comfortably, no acute respiratory distress. Cardio: Regular rate rhythm, normal S1-S2, sinus rhythm at this time. Respiratory: Clear to auscultation bilaterally. Improvement since yesterday. GI: Abdomen soft, nontender, nondistended, bowel sounds + Behavior: Appropriate and cooperative Extremities: Trace edema bilateral lower extremities. Discharge Data Studies Completed and Pending Completed Studies During Hospitalization Category Date Time Status XR chest 1V portable [id number] Stat Exams 12/29/23 08:31 Completed US echo complete [CV. echo complete* [id number]] Routine Ultrasound 12/29/23 13:22 Completed Pending at discharge Category Date Time Status BMP [Basic Metabolic Panel] Routine Lab 12/30/23 12:03 Ordered Sputum Culture and Gram Stain Stat Lab 12/29/23 13:22 Uncollected Sputum Culture and Gram Stain Stat Lab 12/29/23 16:12 Uncollected Radiology Impressions Chest X-Ray 12/29/23 08:31 IMPRESSION: 1. Decreased atelectasis, edema, and/or pneumonitis in the lung bases. 2. Unchanged bilateral bullous emphysema. Laboratory Results WBC 18.73 10^3/uL (3.29-11.43) H 12/30/23 04:34 RBC 3.75 10^6/uL (3.85-5.65) L 12/30/23 04:34 Hgb 11.60 g/dL (11.27-16.99) 12/30/23 04:34 Hct 35.5 % (37-53) L 12/30/23 04:34 MCV 94.7 fl (82-101) 12/30/23 04:34 MCH 30.9 pg (27-33) 12/30/23 04:34 MCHC 32.7 g/dL (30-55) 12/30/23 04:34 RDW 14.1 % (12.1-15.1) 12/30/23 04:34 Plt Count 298 10^3/cmm (157-399) 12/30/23 04:34 MPV 9.1 fL (7.4-10.4) 12/30/23 04:34 Neut % (Auto) 77.0 % 12/30/23 04:34 Lymph % (Auto) 21.1 % 12/30/23 04:34 [place] % (Auto) 1.2 % 12/30/23 04:34 Eos % (Auto) 0.0 % 12/30/23 04:34 Baso % (Auto) 0.1 % 12/30/23 04:34 Neut # (Auto) 14.41 10^3/uL (1.8-7.7) H 12/30/23 04:34 Lymph # (Auto) 4.0 10^3/uL (0.8-4.8) 12/30/23 04:34 [place] # (Auto) 0.2 10^3/uL (0.2-0.9) 12/30/23 04:34 Eos # (Auto) 0.0 10^3/uL (0.0-0.8) 12/30/23 04:34 Baso # (Auto) 0.0 10^3/uL (0.0-0.1) 12/30/23 04:34 Nucleated RBC % (auto) 0 % 12/30/23 04:34 Nucleated RBCs # 0.0 /100WBC 12/30/23 04:34 PT 26.80 SECONDS (12.1-14.9) H 12/30/23 04:34 INR 2.38 (0.8-1.2) H 12/30/23 04:34 Sodium 140 mmol/L (136-145) 12/30/23 04:34 Potassium 5.2 mmol/L (3.5-5.1) H 12/30/23 04:34 Chloride 103 mmol/L (98-107) 12/30/23 04:34 Carbon Dioxide 26 mmol/L (22-29) 12/30/23 04:34 Anion Gap 16.2 (5-19) 12/30/23 04:34 BUN 41 mg/dL (8-23) H 12/30/23 04:34 Creatinine 1.6 mg/dL (0.7-1.2) H 12/30/23 04:34 GFR Calculation Not Reportable 12/30/23 04:34 Glucose 177 mg/dL (65-115) H 12/30/23 04:34 POC Glucose 207 mg/dL (70-110) H 12/29/23 17:00 Calculated Osmolality 304 mOsm/kg (285-295) H 12/30/23 04:34 Calcium 9.6 mg/dL (8.5-10.5) 12/30/23 04:34 Magnesium 2.0 mg/dL (1.7-2.3) 12/30/23 04:34 NT-Pro-B Natriuret Pep 132 pg/mL (0-450) 12/29/23 08:48 Procalcitonin 0.17 ng/mL (0-0.5) 12/29/23 08:48 TSH 1.82 uIU/mL (0.27-4.20) 12/29/23 08:48 Vitals Last Vital Signs Temp 97.0 F L 12/30/23 08:03 Pulse 79 12/30/23 11:27 Resp 18 12/30/23 11:22 BP 174/85 12/30/23 08:03 Pulse Ox 96 12/30/23 11:22 O2 Del Method Nasal Cannula 12/30/23 11:22 O2 Flow Rate 2 12/30/23 11:22 Discharge Plan Discharge Patient Disposition: Home Condition: Stable Prescriptions: New prednisone 20 mg tablet 40 mg PO DAILY Qty: 5 0RF Continued PreserVision AREDS-2 250-90-40-1 mg capsule 1 tab PO DAILY Yupelri 175 mcg/3 mL solution for nebulization 175 mcg inhalation DAILY Qty: 90 6RF budesonide 0.5 mg/2 mL suspension for nebulization 0.5 mg inhalation BID Qty: 120 6RF formoterol fumarate [Perforomist] 20 mcg/2 mL solution for nebulization 2 ml inhalation BID Qty: 120 6RF warfarin 4 mg tablet 4 mg PO DAILY Qty: 30 6RF Protocol: Dose Management Condition: Sunday Dose/Route: 4 mg Instruction: 1 x 4 mg tablet Condition: Sunday Dose/Route: 4 mg Instruction: 1 x 4 mg tablet Condition: Sunday Dose/Route: 4 mg Instruction: 1 x 4 mg tablet Condition: Sunday Dose/Route: 4 mg Instruction: 1 x 4 mg tablet Condition: Dose/Route: 4 mg Instruction: 1 x 4 mg tablet Condition: Sunday Dose/Route: 4 mg Instruction: 1 x 4 mg tablet Condition: Sunday Dose/Route: 4 mg Instruction: 1 x 4 mg tablet Protocol Text: Adjustment Start Date: Sunday01/07/24 INR Value: 3.0 INR Date: 01/07/24 Recheck Date: 01/14/24 Rx Instructions: every day except for Sunday furosemide 20 mg tablet See Rx Instructions .ROUTE .COMPLEX Qty: 60 0RF Dose Instruction: TAKE 1 TABLET BY MOUTH IN THE MORNING FOR 30 DAYS Rx Instructions: states he only takes 10 mg, unless he is needing the 20 mg warfarin 3 mg tablet 3 mg PO DIRECTED Qty: 90 3RF Protocol: Dose Management Condition: Sunday Dose/Route: 4 mg Instruction: 1 x 4 mg tablet Condition: Sunday Dose/Route: 4 mg Instruction: 1 x 4 mg tablet Condition: Sunday Dose/Route: 4 mg Instruction: 1 x 4 mg tablet Condition: Sunday Dose/Route: 4 mg Instruction: 1 x 4 mg tablet Condition: Dose/Route: 4 mg Instruction: 1 x 4 mg tablet Condition: Sunday Dose/Route: 4 mg Instruction: 1 x 4 mg tablet Condition: Sunday Dose/Route: 4 mg Instruction: 1 x 4 mg tablet Protocol Text: Adjustment Start Date: Sunday01/07/24 INR Value: 3.0 INR Date: 01/07/24 Recheck Date: 01/14/24 Rx Instructions: Sunday only albuterol sulfate 90 mcg/actuation HFA aerosol inhaler 2 puff inhalation Q4H PRN (Reason: Shortness Of Breath) Qty: 8.5 6RF ipratropium-albuterol 0.5 mg-3 mg(2.5 mg base)/3 mL solution for nebulization 3 ml inhalation Q6H PRN (Reason: shortness of breath or wheezing) Qty: 180 6RF Flomax 0.4 mg Capsule 0.4 mg PO BEDTIME atorvastatin 20 mg tablet 20 mg PO BEDTIME Cardizem CD 240 mg Capsule,Extended Release 24hr 240 mg PO DAILY citalopram 20 mg Tablet 30 mg PO DAILY potassium chloride 10 mEq tablet extended release 10 meq PO DAILY PRN (Reason: with Lasix) Rx Instructions: states he takes with Lasix only when 20 mg dose of Lasix is taken Madonna 5 mg tablet 5 mg PO BEDTIME Discontinued olmesartan 5 mg tablet 5 mg PO BID No Action olmesartan 5 mg tablet 5 mg PO BID Qty: 180 0RF allopurinol 300 mg tablet See Rx Instructions .ROUTE .COMPLEX Qty: 45 2RF Dose Instruction: TAKE 1/2 (ONE-HALF) TABLET BY MOUTH IN THE MORNING Rx Instructions: TAKE 1/2 (ONE-HALF) TABLET BY MOUTH IN THE MORNING Discharge Orders: Discharge Order (Routine); Ordered 12/30/23 Ordered By: Jeni Garcia Other Ambulatory Orders: Basic Metabolic Panel (Routine) Timeframe: 2 Days Facility: [facility] - Location: Lab - Main Lab Ordered By: Jeni Garcia Referrals: Autumn Pierre DO [Primary Care Provider] - 4-7 days (We have notified your physician's clinic of the need for a follow-up appointment to be scheduled. If you have not heard from them within the next 2 business days, please call them directly. ) Discharge Diet: Cardiac and Diabetic Discharge Activity: Resume usual activity and Oxygen as instructed Patient Instructions: Prednisone (By mouth), Azithromycin (By mouth), Amlodipine (By mouth), COPD (Chronic Obstructive Pulmonary Disease) (DC), COPD Stoplight, Opioid Safety Discharge Attestations Time Spent in Discharge Care*: less than 30 min Quality Metrics Clinical Quality Measures [ No reported AMI, CVA or VTE this stay] Coding Level of Care Code Acute Code for Chg Fwd Diagnoses Essential (primary) hypertension I10 Acute on chronic heart failure with preserved ejection fraction (HFpEF) I50.33 Paroxysmal atrial fibrillation with RVR I48.0 Dyslipidemia E78.5 Mixed hyperlipidemia E78.2 Type 2 diabetes mellitus without complication, without long-term current use of insulin E11.9 Diabetes mellitus intermediate card tender insulin use: without intermediate card tender use Gastroesophageal reflux disease, unspecified whether esophagitis present K21.9 Esophagitis presence: esophagitis presence not specified CLL (chronic lymphocytic leukemia) C91.10 Lymphocytosis D72.820 Bronchitis J40 COPD (chronic obstructive pulmonary disease) J44.9 COPD type: unspecified COPD Acute and chronic respiratory failure with hypoxia J96.21 Diaphragm dysfunction J98.6
[2023-12-30 14:10] LABS: Anion Gap 18.2 (5-19); Blood Urea Nitrogen 47 mg/dL (8-23); Calcium 9.8 mg/dL (8.5-10.5); Carbon Dioxide 24 mmol/L (22-29); Chloride 104 mmol/L (98-107); Glucose 222 mg/dL (65-115); Osmolality Calculated 311 mOsm/kg (285-295); Potassium 5.2 mmol/L (3.5-5.1); Sodium 141 mmol/L (136-145)
== END 2023-12-30 14:57 | disposition home or self-care (01) ==
LOC: ER 11:03 → MEDSURG 12:24
PROVIDERS: Admitting Provider Internal Medicine; Emergency Provider Student in an Organized Health Care Education/Training Program; PCP Family Medicine; Visit Provider Internal Medicine
DX: J44.1 Chronic obstructive pulmonary disease with (acute) exacerbation (principal); E11.22 Type 2 diabetes mellitus with diabetic chronic kidney disease; I13.0 Hypertensive heart and chronic kidney disease with heart failure and stage 1 through stage 4 chronic kidney disease, or unspecified chronic kidney disease; N18.9 Chronic kidney disease, unspecified; I50.33 Acute on chronic diastolic (congestive) heart failure; I48.0 Paroxysmal atrial fibrillation; E78.2 Mixed hyperlipidemia; K21.9 Gastro-esophageal reflux disease without esophagitis; C91.10 Chronic lymphocytic leukemia of B-cell type not having achieved remission; J40 Bronchitis, not specified as acute or chronic; J96.21 Acute and chronic respiratory failure with hypoxia; F03.90 Unspecified dementia, unspecified severity, without behavioral disturbance, psychotic disturbance, mood disturbance, and anxiety; Z79.4 Long term (current) use of insulin; Z79.01 Long term (current) use of anticoagulants; Z87.891 Personal history of nicotine dependence
CPT/HCPCS: 36415; 36416; 71045; 80048; 82962; 83735; 83880; 84145; 84443; 85025; 85610; 93005; 93306; 94640; 94664; 94760; 96365; 96366; 96375; 96376; 99285; G0378; J0456; J1940; J2919; J3490; J7050; J7626

== ENCOUNTER → 2024-01-03 12:50 | Outpatient (BNVA) | payer MEDICARE, BC, SELFPAY | PROVIDERS: PCP Family Medicine; Visit Provider Physician Assistant | DX: Z96.641 Presence of right artificial hip joint (principal) | CPT/HCPCS: 73502; 99213 ==

== ENCOUNTER 2024-01-04 08:53 | Oncology outpatient (recurring) (ONCR) | payer MEDICARE, BC, SELFPAY ==
[2024-01-04 09:46] LABS: Basophils % 0.2 %; Eosinophils # 0.2 10^3/uL (0.0-0.8); Eosinophils % 0.8 %; Hematocrit 37.7 % (37-53); Lymphocytes # 4.4 10^3/uL (0.8-4.8); Lymphocytes % 22.7 %; Mean Corpuscular HGB Conc 31.6 g/dL (30-55); Mean Corpuscular Hemoglobin 30.3 pg (27-33); Mean Corpuscular Volume 95.9 fl (82-101); Mean Platelet Volume 9.3 fL (7.4-10.4); Monocytes # 0.6 10^3/uL (0.2-0.9); Monocytes % 2.8 %; Neutrophils # 14.02 10^3/uL (1.8-7.7); Neutrophils % 72.2 %; Nucleated Red Blood Cells % 0 %; Platelet Count 312 10^3/cmm (157-399); Red Blood Count 3.93 10^6/uL (3.85-5.65); Red Cell Distribution Width 14.7 % (12.1-15.1); White Blood Count 19.44 10^3/uL (3.29-11.43)
[2024-01-04 10:21] LABS: Alanine Aminotransferase 24 U/L (0-41); Albumin Level 3.9 g/dL (3.5-5.2); Alkaline Phosphatase 167 U/L (40-130); Anion Gap 16.2 (5-19); Aspartate Amino Transferase 14 U/L (0-40); Blood Urea Nitrogen 39 mg/dL (8-23); Calcium 9.3 mg/dL (8.5-10.5); Carbon Dioxide 29 mmol/L (22-29); Chloride 103 mmol/L (98-107); Creatinine Clr Calc Pharmacy 42.9586; Globulin 2.8 g/dL (1.3-4.6); Glucose 161 mg/dL (65-115); Lactate Dehydrogenase 280 U/L (135-225); Osmolality Calculated 309 mOsm/kg (285-295); Potassium 5.2 mmol/L (3.5-5.1); Sodium 143 mmol/L (136-145); Total Bilirubin 0.3 mg/dL (0.15-1.2); Total Protein 6.7 g/dL (6.6-8.7)
== END 2024-01-06 23:59 | disposition home or self-care (01) ==
LOC: RAD 08:54 → ONCMED 11:08
PROVIDERS: Nurse Practitioner Family; PCP Family Medicine; Visit Provider Internal Medicine Medical Oncology
DX: C91.10 Chronic lymphocytic leukemia of B-cell type not having achieved remission (principal); Z87.891 Personal history of nicotine dependence; R53.83 Other fatigue; J44.9 Chronic obstructive pulmonary disease, unspecified; I50.9 Heart failure, unspecified; Z79.01 Long term (current) use of anticoagulants; Z79.899 Other long term (current) drug therapy
CPT/HCPCS: 36415; 80053; 83615; 85025; 99214

== ENCOUNTER → 2024-01-08 14:32 | Outpatient (BNVA) | payer MEDICARE, BC, SELFPAY | PROVIDERS: PCP Family Medicine; Visit Provider Podiatrist Foot & Ankle Surgery | DX: L60.3 Nail dystrophy (principal); E11.22 Type 2 diabetes mellitus with diabetic chronic kidney disease; N18.4 Chronic kidney disease, stage 4 (severe); G62.9 Polyneuropathy, unspecified; E11.42 Type 2 diabetes mellitus with diabetic polyneuropathy | CPT/HCPCS: 11721 ==

== ENCOUNTER → 2024-02-14 10:01 | Outpatient (BNVA) | payer MEDICARE, BC, SELFPAY | PROVIDERS: PCP Family Medicine; Visit Provider Family Medicine | DX: E11.22 Type 2 diabetes mellitus with diabetic chronic kidney disease (principal); N18.4 Chronic kidney disease, stage 4 (severe) | CPT/HCPCS: 80053 ==

== ENCOUNTER → 2024-03-14 09:52 | Outpatient (BNVA) | payer MEDICARE, BC, SELFPAY | PROVIDERS: PCP Family Medicine; Visit Provider Internal Medicine Cardiovascular Disease | DX: R06.09 Other forms of dyspnea (principal); I48.0 Paroxysmal atrial fibrillation; I12.9 Hypertensive chronic kidney disease with stage 1 through stage 4 chronic kidney disease, or unspecified chronic kidney disease; N18.4 Chronic kidney disease, stage 4 (severe) | CPT/HCPCS: 99214 ==

== ENCOUNTER → 2024-03-25 11:35 | Outpatient (BNVA) | payer MEDICARE, BC, SELFPAY | PROVIDERS: PCP Family Medicine; Visit Provider Family Medicine | DX: E11.22 Type 2 diabetes mellitus with diabetic chronic kidney disease (principal); N18.4 Chronic kidney disease, stage 4 (severe) | CPT/HCPCS: 80048 ==

== ENCOUNTER 2024-04-04 08:53 | Oncology outpatient (recurring) (ONCR) | payer MEDICARE, BC, SELFPAY ==
[2024-04-04 10:00] LABS: Basophils # 0.1 10^3/uL (0.0-0.1); Basophils % 0.3 %; Eosinophils # 1.8 10^3/uL (0.0-0.8); Eosinophils % 6.5 %; Hematocrit 41.4 % (37-53); Lymphocytes # 7.2 10^3/uL (0.8-4.8); Lymphocytes % 26.6 %; Mean Corpuscular HGB Conc 31.2 g/dL (30-55); Mean Corpuscular Hemoglobin 30.1 pg (27-33); Mean Corpuscular Volume 96.5 fl (82-101); Mean Platelet Volume 9.6 fL (7.4-10.4); Monocytes # 1.6 10^3/uL (0.2-0.9); Monocytes % 6.1 %; Neutrophils % 59.8 %; Nucleated Red Blood Cells % 0 %; Platelet Count 282 10^3/cmm (157-399); Red Blood Count 4.29 10^6/uL (3.85-5.65); Red Cell Distribution Width 14.4 % (12.1-15.1); White Blood Count 27.08 10^3/uL (3.29-11.43)
[2024-04-04 10:17] LABS: Alanine Aminotransferase 18 U/L (0-41); Albumin Level 3.7 g/dL (3.5-5.2); Alkaline Phosphatase 144 U/L (40-130); Anion Gap 16.7 (5-19); Aspartate Amino Transferase 11 U/L (0-40); Blood Urea Nitrogen 43 mg/dL (8-23); Calcium 8.7 mg/dL (8.5-10.5); Carbon Dioxide 29 mmol/L (22-29); Chloride 100 mmol/L (98-107); Globulin 2.8 g/dL (1.3-4.6); Glucose 112 mg/dL (65-115); Lactate Dehydrogenase 158 U/L (135-225); Osmolality Calculated 304 mOsm/kg (285-295); Potassium 4.7 mmol/L (3.5-5.1); Sodium 141 mmol/L (136-145); Total Bilirubin 0.6 mg/dL (0.15-1.2); Total Protein 6.5 g/dL (6.6-8.7)
== END 2024-04-07 23:59 | disposition home or self-care (01) ==
PROVIDERS: Nurse Practitioner Family; PCP Family Medicine; Visit Provider Internal Medicine Medical Oncology
DX: C91.10 Chronic lymphocytic leukemia of B-cell type not having achieved remission (principal); Z87.891 Personal history of nicotine dependence; K21.9 Gastro-esophageal reflux disease without esophagitis; Z79.899 Other long term (current) drug therapy
CPT/HCPCS: 36415; 80053; 83615; 85025; 99214

== ENCOUNTER 2024-04-11 12:18 | Emergency (ER) | payer MEDICARE, BC, SELFPAY ==
[2024-04-11] VITALS (10 sets, daily range): BP systolic 86–113; BP diastolic 45–69; PULSE 71–109; RESP 16–28; TEMP 36.9; O2SAT 90–98
--- NOTE | 2024-04-11 12:33 | ECG_ITS ---
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 Measurements Intervals [place] Rate: 92 P: 79 WI: 131 QRS: 52 QRSD: 82 T: 66 QT: 345 QTc: 427 Interpretive Statements SINUS RHYTHM POSSIBLE RIGHT VENTRICULAR CONDUCTION DELAY [RSR (QR) IN V1/V2] MODERATE ST DEPRESSION [0.05+ mV ST DEPRESSION] Compared to ECG 12/29/2023 08:26:08 ST (T wave) deviation now present Atrial fibrillation no longer present Myocardial infarct finding no longer present Electronically Signed On 04-12-2024 20:55:23 CDT by Rudi Briscoe M.D. [id number]
--- NOTE | 2024-04-11 12:50 | XR_ITS ---
WS: [id number] Exam: XR chest 1V portable [id number] Date/Time of Exam: 04/11/2024 1:07 PM Reason For Exam: chest pain/ sob Comparison 12/29/2023. Lungs are hyperinflated and clear. Chronic changes in the bilateral upper lung zones. Cardiomediastin al silhouette is unremarkable. Bony structures are intact. XR/XR chest 1V portable [id number] IMPRESSION: 1. Pulmonary hyperinflation. No acute process. 2. Chronic changes in the upper lung zones
--- NOTE | 2024-04-11 12:54 | W.ED.CHESTPA ---
HPI - Chest Pain General: Chief Complaint: Chest Pain Stated Complaint: CP X 2 DAYS Time Seen by Provider: 04/11/24 12:42 History of Present Illness: Patient is a 84-year-old gentleman with a history of COPD who wears 2 to 3 L of supplemental oxygen at baseline and presents to the ER with complaints of 2 to 3 days of increasing sharp left-sided chest pain, cough, shortness of breath, and fatigue. He has had a productive cough. He is anticoagulated with warfarin. He does feel very short of breath. MD complaint: chest pain Onset (ago): day(s) Timing of current episode: constant Onset: during rest and during exertion Pain radiation: none Quality: tightness Associated symptoms: Reports dyspnea; Deny abdominal pain, diaphoresis, fever(s), nausea or vomiting Related Data Home Medications Medication Instructions Recorded Confirmed vit C 250 mg-vit E 90 mg-zinc 40 1 tab PO DAILY 08/19/21 04/11/24 mg-copper 1 [id number] capsule (PreserVision AREDS-2) atorvastatin 20 mg tablet 20 mg PO BEDTIME 12/30/23 04/11/24 linagliptin 5 mg tablet (Tradjenta) 5 mg PO BEDTIME 12/30/23 04/11/24 tamsulosin 0.4 mg capsule (Flomax) 0.4 mg PO BEDTIME 12/30/23 04/11/24 allopurinol 300 mg tablet 150 mg PO QAM 04/11/24 04/11/24 budesonide 0.5 mg/2 mL suspension 0.5 mg inhalation BID PRN COPD 04/11/24 04/11/24 for nebulization J44.9 diltiazem HCl 240 mg capsule,24 240 mg PO DAILY 04/11/24 04/11/24 hr,extended release Previous Rx's Medication Instructions Recorded warfarin 3 mg tablet 3 mg PO DIRECTED #90 tabs 11/09/23 albuterol sulfate 90 mcg/actuation 2 puff inhalation Q4H PRN 12/24/23 aerosol inhaler Shortness Of Breath #8.5 grams ipratropium 0.5 mg-albuterol 3 mg 3 ml inhalation Q6H PRN shortness 12/24/23 (2.5 mg base)/3 mL nebulization of breath or wheezing #180 mL soln olmesartan 5 mg tablet 5 mg PO BID #180 tabs 01/03/24 formoterol fumarate 20 mcg/2 mL 2 ml inhalation BID #120 mL 02/08/24 solution for nebulization (Perforomist) citalopram 40 mg tablet 40 mg PO DAILY #60 tabs 02/14/24 guaifenesin 1,200 mg tablet, 1,200 mg PO BID #180 tabs 02/14/24 extended release 12 hr (Mucinex) revefenacin 175 mcg/3 mL solution 175 mcg (3 mL) inhalation DAILY 02/26/24 for nebulization (Yupelri) COPD J44.9 #90 mL furosemide 40 mg tablet 40 mg PO DAILY #90 tabs 03/14/24 famotidine 20 mg tablet 20 mg PO BID GERD #60 tabs 04/04/24 doxycycline hyclate 100 mg capsule 100 mg PO BID 7 days #14 caps 04/11/24 prednisone 20 mg tablet 40 mg (2 x 20 mg) PO DAILY #10 tabs 04/11/24 Allergies Allergy/AdvReac Type Severity Reaction Status Date / Time No Known Allergies Allergy Verified 04/11/24 12:33 Review of Systems Const: Denies: fever(s), chills or diaphoresis Card: Reports: chest pain Resp: Reports: dyspnea, productive cough, wheezing and pain on inspiration GI: Denies: abdominal pain, nausea or vomiting Skin/Breast: Denies: rash Neuro: Denies: headache(s) [facility] PFSH: Medical History CKD (chronic kidney disease), 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 Bennett - 11/2021 at [place], [place] History of prostate surgery History of total knee replacement bilateral History of cholecystectomy Family History Other Cancer Hypertension Lung disease Denies family history of Diabetes CAD (coronary artery disease) Clotting disorder Dementia Hyperlipidemia Psychiatric illness Chronic kidney disease (CKD) Suicide Anesthesia complication Bleeding disorder Stroke Social History Smoking and tobacco/nicotine status: former use of tobacco/nicotine (quit 2009) Quit status (tobacco/nicotine): has quit using Year quit tobacco: 2009 - 1PPD x 50 Years Second hand smoke exposure: No Alcohol intake: current Substance/Drug Use: never Lives independently: Yes Household members: spouse Marital status: Current occupational status: retired Do you think of yourself as: Straight/Heterosexual Current gender identity: Male Physical Exam Const: COMMON NORMALS: no acute distress, average body habitus, alert and well nourished GENERAL APPEARANCE: cooperative ORIENTATION/CONSCIOUSNESS: Yes awake HENMT: COMMON NORMALS: normocephalic and atraumatic HEAD & SCALP: normocephalic and atraumatic Eye: COMMON NORMALS: conjunctivae normal CONJUNCTIVA: Yes conjunctivae normal Neck/C-Spine: GENERAL: Yes normal visual inspection Resp: COMMON NORMALS: No retractions OTHER: Mild increased work of breathing, diminished breath sounds bilaterally with expiratory wheezes throughout. Cardio: COMMON NORMALS: regular rhythm and Peripheral pulses 2+ throughout RHYTHM: regular rhythm PERIPHERAL PULSES: Peripheral pulses 2+ throughout GI: COMMON NORMALS: Soft to palpation and non-tender PALPATION: Yes Soft to palpation Extremity: COMMON NORMALS: full ROM and no pedal edema Neuro: COMMON NORMALS: no focal motor deficits SENSORIUM/ORIENTATION: Yes alert Skin: COMMON NORMALS: no rashes or lesions noted GENERAL SKIN EXAM: no rashes or lesions noted Course Vital Signs: Vital signs: Vital Signs Temperature 98.4 F 04/11/24 12:23 Pulse Rate 98 04/11/24 17:36 Respiratory Rate 22 H 04/11/24 17:36 Blood Pressure 113/69 04/11/24 17:36 Pulse Oximetry 98 04/11/24 17:36 Oxygen Delivery Me thod Nasal Cannula 04/11/24 17:36 Oxygen Flow Rate 2 04/11/24 13:14 MDM - Chest Pain Medical Decision Making Patient is a chronically ill-appearing 84-year-old gentleman with history of COPD who wears supplemental oxygen at baseline and presents to the ER with complaint of substernal chest pain and some cough with shortness of breath. He has a history of atrial fibrillation and is anticoagulated with Coumadin. His INR is therapeutic. He had significant wheezing on exam and was in no acute distress. He is on his baseline supplemental oxygen. He was given a multiple DuoNeb treatments here and a dose of Solu-Medrol. Chest x-ray shows some hyperinflation without any acute cardiopulmonary findings. Basic labs show leukocytosis which is stable for the patient as he has multiple previous labs with leukocytosis that are similar. He has chronic renal insufficiency which is stable. Patient had a couple of short runs of A-fib with RVR here but has for the most part been very well rate controlled with rates of 70 bpm to 90 bpm. His most recent vital signs at the time of this dictation are heart rate of 69 bpm. Blood pressure 113/65. Pulse ox at 97%. I have reevaluated the patient and discussed treatment options with the patient and the who is at bedside. I offered admission for observation versus discharge home. Patient feels strongly that he would like to be discharged home and does not want to be admitted to the hospital. He states he has everything at home including nebulizers and home oxygen. He is comfortable with continuation of prednisone at home and I will go ahead and start him on a round of doxycycline. I recommend he follow-up with his PCP for recheck in 2 to 3 days and if provided strict return precautions. The is comfortable with this plan and states she can return to the ER with the patient if he has any deterioration of his condition. Differential Diagnosis Likely acute massive pulmonary embolism, acute respiratory failure and acute myocardial infarction Medical Records I reviewed the patient's medical records. Lab Data I reviewed the patient's lab results. 04/11/24 13:06 04/11/24 13:06 Radiology Impressions Chest X-Ray 04/11/24 12:50 IMPRESSION: 1. Pulmonary hyperinflation. No acute process. 2. Chronic changes in the upper lung zones Laboratory Results WBC 20.63 10^3/uL (3.29-11.43) H 04/11/24 13:06 RBC 4.19 10^6/uL (3.85-5.65) 04/11/24 13:06 Hgb 12.80 g/dL (11.27-16.99) 04/11/24 13:06 Hct 39.5 % (37-53) 04/11/24 13:06 MCV 94.3 fl (82-101) 04/11/24 13:06 MCH 30.5 pg (27-33) 04/11/24 13:06 MCHC 32.4 g/dL (30-55) 04/11/24 13:06 RDW 13.6 % (12.1-15.1) 04/11/24 13:06 Plt Count 295 10^3/cmm (157-399) 04/11/24 13:06 MPV 9.8 fL (7.4-10.4) 04/11/24 13:06 Neut % (Auto) 63.2 % 04/11/24 13:06 Lymph % (Auto) 26.4 % 04/11/24 13:06 [place] % (Auto) 5.8 % 04/11/24 13:06 Eos % (Auto) 4.0 % 04/11/24 13:06 Baso % (Auto) 0.2 % 04/11/24 13:06 Neut # (Auto) 13.03 10^3/uL (1.8-7.7) H 04/11/24 13:06 Lymph # (Auto) 5.4 10^3/uL (0.8-4.8) H 04/11/24 13:06 [place] # (Auto) 1.2 10^3/uL (0.2-0.9) H 04/11/24 13:06 Eos # (Auto) 0.8 10^3/uL (0.0-0.8) 04/11/24 13:06 Baso # (Auto) 0.0 10^3/uL (0.0-0.1) 04/11/24 13:06 Nucleated RBC % (auto) 0 % 04/11/24 13:06 Nucleated RBCs # 0.0 /100WBC 04/11/24 13:06 PT 22.60 SECONDS (12.1-14.9) H 04/11/24 13:06 INR 1.92 (0.8-1.2) H 04/11/24 13:06 APTT 47.6 SECONDS (23.9-36.7) H 04/11/24 13:06 Sodium 136 mmol/L (136-145) 04/11/24 13:06 Potassium 4.4 mmol/L (3.5-5.1) 04/11/24 13:06 Chloride 98 mmol/L (98-107) 04/11/24 13:06 Carbon Dioxide 27 mmol/L (22-29) 04/11/24 13:06 Anion Gap 15.4 (5-19) 04/11/24 13:06 BUN 41 mg/dL (8-23) H 04/11/24 13:06 Creatinine 2.5 mg/dL (0.7-1.2) H 04/11/24 13:06 GFR Calculation Not Reportable 04/11/24 13:06 Glucose 163 mg/dL (65-115) H 04/11/24 13:06 Calculated Osmolality 296 mOsm/kg (285-295) H 04/11/24 13:06 Calcium 8.6 mg/dL (8.5-10.5) 04/11/24 13:06 Total Bilirubin 0.6 mg/dL (0.15-1.2) 04/11/24 13:06 AST 9 U/L (0-40) 04/11/24 13:06 ALT 9 U/L (0-41) 04/11/24 13:06 Alkaline Phosphatase 126 U/L (40-130) 04/11/24 13:06 Troponin T Baseline 61 ng/L (0-15) H 04/11/24 13:06 Troponin T 120 Minute 61.64 ng/L (0-15) H 04/11/24 15:18 Delta Troponin T 0.64 ABS# (0-10) 04/11/24 15:18 NT-Pro-B Natriuret Pep 452 pg/mL (0-450) H 04/11/24 13:06 Total Protein 6.5 g/dL (6.6-8.7) L 04/11/24 13:06 Albumin 3.4 g/dL (3.5-5.2) L 04/11/24 13:06 Globulin 3.1 g/dL (1.3-4.6) 04/11/24 13:06 All radiology interpretation(s) finalized by discharge Discharge Plan Discharge Patient Disposition: Home Clinical Impression: Acute exacerbation of chronic obstructive pulmonary disease, Atrial fibrillation Condition: Stable Prescriptions: New prednisone 20 mg tablet 40 mg PO DAILY Qty: 10 0RF doxycycline hyclate 100 mg capsule 100 mg PO BID 7 Days Qty: 14 0RF No Action PreserVision AREDS-2 250-90-40-1 mg capsule 1 tab PO DAILY olmesartan 5 mg tablet 5 mg PO BID Qty: 180 0RF furosemide 40 mg tablet 40 mg PO DAILY Qty: 90 3RF citalopram 40 mg tablet 40 mg PO DAILY Qty: 60 1RF guaifenesin [Mucinex] 1,200 mg tablet extended release 12hr 1,200 mg PO BID Qty: 180 1RF famotidine 20 mg tablet 20 mg PO BID Qty: 60 3RF warfarin 3 mg tablet 3 mg PO DIRECTED Qty: 90 3RF Protocol: Dose Management Condition: Sunday Dose/Route: 3 mg Instruction: 1 x 3 mg tablet Condition: Sunday Dose/Route: 3 mg Instruction: 1 x 3 mg tablet Condition: Sunday Dose/Route: 3 mg Instruction: 1 x 3 mg tablet Condition: Sunday Dose/Route: 3 mg Instruction: 1 x 3 mg tablet Condition: Dose/Route: 3 mg Instruction: 1 x 3 mg tablet Condition: Sunday Dose/Route: 3 mg Instruction: 1 x 3 mg tablet Condition: Sunday Dose/Route: 3 mg Instruction: 1 x 3 mg tablet Protocol Text: Adjustment Start Date: Sunday04/09/24 INR Value: 2.5 INR Date: 04/07/24 Recheck Date: 04/16/24 Rx Instructions: Sunday only albuterol sulfate 90 mcg/actuation HFA aerosol inhaler 2 puff inhalation Q4H PRN (Reason: Shortness Of Breath) Qty: 8.5 6RF ipratropium-albuterol 0.5 mg-3 mg(2.5 mg base)/3 mL solution for nebulization 3 ml inhalation Q6H PRN (Reason: shortness of breath or wheezing) Qty: 180 6RF formoterol fumarate [Perforomist] 20 mcg/2 mL solution for nebulization 2 ml inhalation BID Qty: 120 6RF Yupelri 175 mcg/3 mL solution for nebulization 175 mcg inhalation DAILY Qty: 90 6RF tamsulosin [Flomax] 0.4 mg Capsule 0.4 mg PO BEDTIME atorvastatin 20 mg tablet 20 mg PO BEDTIME Tradjenta 5 mg tablet 5 mg PO BEDTIME diltiazem HCl 240 mg capsule,extended release 24 hr 240 mg PO DAILY budesonide 0.5 mg/2 mL suspension for nebulization 0.5 mg inhalation BID PRN (Reason: COPD J44.9) allopurinol 300 mg tablet 150 mg PO QAM Discharge Orders: Discharge ED (Routine); Ordered 04/11/24 Ordered By: Justino Cantu Referrals: Abdirashid Rose MD [Primary Care Provider] - Discharge Diet: Usual diet Discharge Activity: Resume usual activity Patient Instructions: Opioid Safety, Pain Management, COPD (Chronic Obstructive Pulmonary Disease) (DC) Activity Restrictions/Additional Instructions: Take all medication as directed. Follow-up with your PCP for recheck in 2 to 3 days. Return to the emergency department for any new or worsening symptoms, increased work of breathing, or any other concerns. Coding Level of Care Code ED Systems Coordinator for 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
[2024-04-11 13:14] LABS: Basophils % 0.2 %; Eosinophils # 0.8 10^3/uL (0.0-0.8); Hematocrit 39.5 % (37-53); Lymphocytes # 5.4 10^3/uL (0.8-4.8); Lymphocytes % 26.4 %; Mean Corpuscular HGB Conc 32.4 g/dL (30-55); Mean Corpuscular Hemoglobin 30.5 pg (27-33); Mean Corpuscular Volume 94.3 fl (82-101); Mean Platelet Volume 9.8 fL (7.4-10.4); Monocytes # 1.2 10^3/uL (0.2-0.9); Monocytes % 5.8 %; Neutrophils # 13.03 10^3/uL (1.8-7.7); Neutrophils % 63.2 %; Nucleated Red Blood Cells % 0 %; Platelet Count 295 10^3/cmm (157-399); Red Blood Count 4.19 10^6/uL (3.85-5.65); Red Cell Distribution Width 13.6 % (12.1-15.1); White Blood Count 20.63 10^3/uL (3.29-11.43)
[2024-04-11] MEDS: ipratropium-albuterol 3 mL Neb INHALATION ×3 (13:15→13:16)
[2024-04-11 13:24] LABS: INR 1.92 (0.8-1.2)
[2024-04-11] MEDS: methylPREDNISolone sod succ 125 mg/2 mL INJ IVP (13:24)
[2024-04-11 13:27] LABS: Partial Thromboplastin Time 47.6 SECONDS (23.9-36.7)
[2024-04-11 13:33] LABS: Troponin(5th) Baseline 61 ng/L (0-15)
[2024-04-11 13:42] LABS: Alanine Aminotransferase 9 U/L (0-41); Albumin Level 3.4 g/dL (3.5-5.2); Alkaline Phosphatase 126 U/L (40-130); Anion Gap 15.4 (5-19); Aspartate Amino Transferase 9 U/L (0-40); Blood Urea Nitrogen 41 mg/dL (8-23); Calcium 8.6 mg/dL (8.5-10.5); Carbon Dioxide 27 mmol/L (22-29); Chloride 98 mmol/L (98-107); Globulin 3.1 g/dL (1.3-4.6); Glucose 163 mg/dL (65-115); NT Pro B Type Natriuretic Pept 452 pg/mL (0-450); Osmolality Calculated 296 mOsm/kg (285-295); Potassium 4.4 mmol/L (3.5-5.1); Sodium 136 mmol/L (136-145); Total Bilirubin 0.6 mg/dL (0.15-1.2); Total Protein 6.5 g/dL (6.6-8.7)
--- NOTE | 2024-04-11 14:08 | ECG_ITS ---
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 Measurements Intervals [place] Rate: 99 P: 0 DE: 0 QRS: 23 QRSD: 89 T: 74 QT: 339 QTc: 435 Interpretive Statements ATRIAL FLUTTER/TACHYCARDIA WITH ABERRANT CONDUCTION OR VENTRICULAR PREMATURE COMPLEXES POSSIBLE RIGHT VENTRICULAR CONDUCTION DELAY [RSR (QR) IN V1/V2] ABNORMAL RHYTHM ECG Compared to ECG 04/11/2024 12:20:36 Ventricular premature complex(es) now present Aberrant conduction of supraventricular beat(s) now present Sinus rhythm no longer present ST (T wave) deviation no longer present Electronically Signed On 04-12-2024 21:14:49 CDT by Rudi Briscoe M.D. [id number]
[2024-04-11 15:40] LABS: Troponin 5 2HR 61.64 ng/L (0-15); Troponin 5 2HR Delta 0.64 ABS# (0-10)
--- NOTE | 2024-04-11 15:42 | ECG_ITS ---
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 Measurements Intervals [place] Rate: 122 P: 0 VA: 0 QRS: -11 QRSD: 110 T: 65 QT: 334 QTc: 478 Interpretive Statements ATRIAL FLUTTER/TACHYCARDIA WITH RAPID VENTRICULAR RESPONSE INCOMPLETE RIGHT BUNDLE BRANCH BLOCK [90+ ms QRS DURATION, TERMINAL R IN V1/V2, 40+ ms S IN I/aVL/V4/V5/V6] ABNORMAL RHYTHM ECG Compared to ECG 04/11/2024 14:08:00 Incomplete right bundle-branch block now present Ventricular premature complex(es) no longer present Aberrant conduction of supraventricular beat(s) no longer present Electronically Signed On 04-12-2024 21:15:00 CDT by Rudi Briscoe M.D. [id number]
== END 2024-04-11 17:40 | disposition home or self-care (01) ==
PROVIDERS: Emergency Provider Student in an Organized Health Care Education/Training Program; PCP Family Medicine
DX: J44.1 Chronic obstructive pulmonary disease with (acute) exacerbation (principal); I48.91 Unspecified atrial fibrillation; Z79.01 Long term (current) use of anticoagulants
CPT/HCPCS: 36415; 71045; 80053; 83880; 84484; 85025; 85610; 85730; 93005; 94640; 96374; 99285; J2919

== ENCOUNTER → 2024-04-22 12:02 | Outpatient (BNVA) | payer MEDICARE, BC, SELFPAY | PROVIDERS: PCP Family Medicine; Visit Provider Family Medicine | DX: N18.4 Chronic kidney disease, stage 4 (severe) (principal) | CPT/HCPCS: 80048 ==

== ENCOUNTER → 2024-05-02 10:03 | Outpatient (BNVA) | payer MEDICARE, BC, SELFPAY | PROVIDERS: PCP Family Medicine; Visit Provider Family Medicine | DX: N18.4 Chronic kidney disease, stage 4 (severe) (principal) | CPT/HCPCS: 80048; 81003; 82570; 84156 ==

== ENCOUNTER → 2024-05-08 13:29 | Outpatient (BNVA) | payer MEDICARE, BC, SELFPAY | PROVIDERS: PCP Family Medicine; Visit Provider Podiatrist Foot & Ankle Surgery | DX: L60.3 Nail dystrophy (principal); E11.22 Type 2 diabetes mellitus with diabetic chronic kidney disease; N18.4 Chronic kidney disease, stage 4 (severe); G62.9 Polyneuropathy, unspecified | CPT/HCPCS: 11721 ==

== ENCOUNTER 2024-06-09 07:43 | Emergency (ER) | payer MEDICARE, BC, SELFPAY ==
[2024-06-09 07:46] VITALS: BP 126/64; PULSE 133; RESP 18; TEMP 36.7; O2SAT 90; BMI 25.5
--- NOTE | 2024-06-09 08:03 | CT_ITS ---
WS: [id number] CT LUMBAR SPINE TECHNIQUE: Noncontrast CT of the lumbar spine with coronal and sagittal reformatted images. CLINICAL INFORMATION: trauma pain COMPARISON: None. DLP: 851.[address] scans at [facility] use at least one of these dose optimization techniques: automated e xposure control; mA and/or kV adjustment per patient size (includes targeted exams where dose is matc hed to clinical indication); or iterative reconstruction. FINDINGS: Mild acute compression fracture superior endplate L2 with visualized fracture cleft. No significant r etropulsion. No other acute appearing compression fractures. L1-L2: Normal. L2-L3: Mild annular bulging. Mild facet arthropathy. Spinal canal and foramen are patent. L3-L4: Shallow central protrusion. Moderate central canal stenosis. Moderate facet arthropathy. Chanell en are patent. L4-L5: Mild disc bulging with advanced facet arthropathy and ligamentum flavum hypertrophy. Moderate to severe central canal stenosis with impingement on the traversing RIGHT greater than LEFT L5 nerve roots. Moderate RIGHT foraminal narrowing. L5-S1: Mild annular bulging. Slight contact of the traversing S1 nerve roots with a small central pro trusion. Advanced facet arthropathy. Foramen are patent. Normal LEFT adrenal gland. RIGHT adrenal nodule 10 mm likely adenoma. RIGHT renal cysts. Vascular tray cification. Abdominal aortic aneurysm measuring 2.6 x 2.6 cm AP by transverse. Cholecystectomy clips. Shotty periaortic lymph nodes. CT/CT lumbar spine wo con* [id number] IMPRESSION: 1. Mild acute compression superior endplate L2 with minimal loss of vertebral body height. No retropulsion. 2. Moderate chronic central canal stenosis L3-4 and moderate to severe L4-5 du e to disc bulge and facet arthropathy and ligamentum flavum hypertrophy. 3. Slight aneurysmal infrarenal abdominal aorta measuring 2.6 x 2.6 cm this ap pears stable since 2022 CT 01/02/2023
--- NOTE | 2024-06-09 09:12 | ECG_ITS ---
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 Measurements Intervals [place] Rate: 107 P: 80 IA: 151 QRS: 36 QRSD: 81 T: 74 QT: 349 QTc: 466 Interpretive Statements SINUS TACHYCARDIA WITH FREQUENT SUPRAVENTRICULAR PREMATURE COMPLEXES ABNORMAL RHYTHM ECG Compared to ECG 04/11/2024 15:42:34 Atrial flutter no longer present Incomplete right bundle-branch block no longer present Electronically Signed On 06-10-2024 21:43:44 FARM EQUIPMENT ENGINEER by Cameron Lopez M.D. [id number]
--- NOTE | 2024-06-09 09:12 | XR_ITS ---
WS: [id number] XR hip RT 2-3V wo/w pel* [id number] REASON FOR EXAM: pain FINDINGS: Total right hip arthroplasty. The prosthetic components are intact and in proper position and alignme nt unchanged compared to 01/03/2024. No proximal femoral fracture related to the femoral prosthesis is noted. The gulkana acetabulum, superior pubic ramus, and inferior pubic ramus appear intact. XR/XR hip RT 2-3V wo/w pel* [id number] IMPRESSION: Total right hip arthroplasty without acute abnormality.
--- NOTE | 2024-06-09 09:29 | ED_ITS ---
HPI - Fall General: Chief Complaint: Fall Stated Complaint: fall - lower back pain Time Seen by Provider: 06/09/24 08:03 History of Present Illness: 84-year-old male presents emergency room complaining of low back pain and right hip pain. He got up was moving around his house stumbled and fell. Ground- level mechanical fall. This happened around 2 AM he was able to get back up EMS was called later he was given fentanyl and Zofran and route. He is complaining of primarily of low back pain is also complaining of some right hip pain he states he fell on the right side that strike his head he did not lose consciousness. Patient does have a history of atrial fibrillation and is on warfarin Associated symptoms-after fall: Denies abdominal pain, chest pain or neck pain Related Data Home Medications Medication Instructions Recorded Confirmed atorvastatin 20 mg tablet 20 mg PO BEDTIME 12/30/23 06/11/24 linagliptin 5 mg tablet (Tradjenta) 5 mg PO BEDTIME 12/30/23 06/11/24 tamsulosin 0.4 mg capsule (Flomax) 0.4 mg PO BEDTIME 12/30/23 06/11/24 allopurinol 300 mg tablet 150 mg PO QAM 04/11/24 06/11/24 Previous Rx's Medication Instructions Recorded warfarin 3 mg tablet 3 mg PO DIRECTED #90 tabs 11/09/23 olmesartan 5 mg tablet 5 mg PO BID #180 tabs 01/03/24 formoterol fumarate 20 mcg/2 mL 2 ml inhalation BID #120 mL 02/08/24 solution for nebulization (Perforomist) revefenacin 175 mcg/3 mL solution 175 mcg (3 mL) inhalation DAILY 02/26/24 for nebulization (Yupelri) COPD J44.9 #90 mL furosemide 40 mg tablet 40 mg PO DAILY #90 tabs 03/14/24 famotidine 20 mg tablet 20 mg PO BID GERD #60 tabs 04/04/24 warfarin 2 mg tablet 2 mg PO DAILY #90 tabs 04/30/24 diltiazem HCl 240 mg capsule,24 240 mg PO DAILY #60 caps 05/07/24 hr,extended release albuterol sulfate 90 mcg/actuation 2 puff inhalation Q4H PRN 06/03/24 aerosol inhaler Shortness Of Breath #8.5 grams citalopram 40 mg tablet 40 mg PO DAILY #90 tabs 06/09/24 hydrocodone 5 mg-acetaminophen 325 1 tab PO Q6H PRN pain #25 tabs 06/09/24 mg tablet Allergies Allergy/AdvReac Type Severity Reaction Status Date / Time No Known Allergies Allergy Verified 06/11/24 02:31 Review of Systems Const: Denies: fever(s) or chills Card: Denies: chest pain Resp: Denies: dyspnea GI: Denies: abdominal pain : Denies: dysuria, urinary frequency or urinary urgency Musc: Reports: back pain and joint pain (Right hip); Denies: neck pain Skin/Breast: Denies: rash PFSH ED PFSH: Medical History CKD (chronic kidney disease), 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 Bennett - 11/2021 at [place], [place] History of prostate surgery History of total knee replacement bilateral History of cholecystectomy Family History Other Cancer Hypertension Lung disease Denies family history of Diabetes CAD (coronary artery disease) Clotting disorder Dementia Hyperlipidemia Psychiatric illness Chronic kidney disease (CKD) Suicide Anesthesia complication Bleeding disorder Stroke Social History Smoking and tobacco/nicotine status: former use of tobacco/nicotine Quit status (tobacco/nicotine): has quit using Year quit tobacco: 2009 - 1PPD x 50 Years Second hand smoke exposure: No Alcohol intake: current Substance/Drug Use: never Lives independently: Yes Household members: spouse Marital status: Current occupational status: retired Do you think of yourself as: Straight/Heterosexual Current gender identity: Male Physical Exam Const: GENERAL APPEARANCE: cooperative ORIENTATION/CONSCIOUSNESS: Yes awake, Yes oriented to person, Yes oriented to place and Yes oriented to time HENMT: COMMON NORMALS: normocephalic, atraumatic and hearing grossly normal bilaterally HEAD & SCALP: normocephalic and atraumatic Resp: COMMON NORMALS: normal respiratory effort, No retractions, No use of accessory muscles and clear to auscultation bilaterally AUSCULTATION: clear to auscultation bilaterally Cardio: COMMON NORMALS: regular rate, regular rhythm and No murmurs present (Cardio) RATE: regular rate RHYTHM: regular rhythm GI: COMMON NORMALS: Soft to palpation and No hepatosplenomegaly present AUSCULTATION: Yes normoactive bowel sounds PALPATION: Yes Soft to palpation, No Tenderness to palpation present (GI), No Guarding due to palpation present (GI) and Yes No hepatosplenomegaly present Extremity: COMMON NORMALS: normal to inspection, capillary refill normal, no clubbing, cyanosis or edema, no calf tenderness and no pedal edema Neuro: SENSORIUM/ORIENTATION: Yes oriented to person, Yes oriented to place and Yes oriented to time Skin: COMMON NORMALS: no rashes or lesions noted GENERAL SKIN EXAM: no rashes or lesions noted Course Vital Signs: Vital signs: Vital Signs Temperature 98.0 F 06/09/24 07:46 Pulse Rate 108 H 06/09/24 11:25 Respiratory Rate 18 06/09/24 07:46 Blood Pressure 153/42 06/09/24 11:25 Pulse Oximetry 97 06/09/24 11:25 Oxygen Delivery Me thod Nasal Cannula 06/09/24 10:52 Oxygen Flow Rate 2 06/09/24 10:52 MDM - Fall Medical Decision Making Mild acute compression fracture fracture at L2. Discussed different treatment options the patient primarily has pain control recommended oral pain medications for this as well as a TLSO brace. Patient declines the brace. His is concerned she will not be able to manage his cares at home because he has a difficult time standing due to the pain. Offered to have case management see them and look at prison placement for rehab and assistance with ADLs until he is able to manage on his own and able to be discharged at that time. He does not wish to pursue that option and prefers to go home. 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 Mild acute compression superior endplate L2 with minimal loss of vertebral body height. No retropulsion. 2. Moderate chronic central canal stenosis L3-4 and moderate to severe L4-5 due to disc bulge and facet arthropathy and ligamentum flavum hypertrophy. 3. 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 Laboratory Results PT 21.70 SECONDS (12.1-14.9) H 06/09/24 09:49 INR 1.82 (0.8-1.2) H 06/09/24 09:49 All radiology interpretation(s) finalized by discharge Discharge Plan Discharge Patient Disposition: Home Clinical Impression: Compression fx, lumbar spine Qualifiers: Encounter type: initial encounter Lumbar vertebra fracture level: L2 Qualified Code(s): S32.020A - Wedge compression fracture of second lumbar vertebra, initial encounter for closed fracture Condition: Stable Prescriptions: New hydrocodone-acetaminophen 5-325 mg tablet 1 tab PO Q6H PRN (Reason: pain) Qty: 25 0RF No Action olmesartan 5 mg tablet 5 mg PO BID Qty: 180 0RF furosemide 40 mg tablet 40 mg PO DAILY Qty: 90 3RF famotidine 20 mg tablet 20 mg PO BID Qty: 60 3RF warfarin 3 mg tablet 3 mg PO DIRECTED Qty: 90 3RF Protocol: Dose Management Condition: Sunday Dose/Route: 3 mg Instruction: 1 x 3 mg tablet Condition: Sunday Dose/Route: 4 mg Instruction: 2 x 2 mg tablets Condition: Sunday Dose/Route: 3 mg Instruction: 1 x 3 mg tablet Condition: Sunday Dose/Route: 4 mg Instruction: 2 x 2 mg tablets Condition: Dose/Route: 3 mg Instruction: 1 x 3 mg tablet Condition: Sunday Dose/Route: 4 mg Instruction: 2 x 2 mg tablets Condition: Sunday Dose/Route: 3 mg Instruction: 1 x 3 mg tablet Protocol Text: Adjustment Start Date: Sunday06/09/24 INR Value: 21.70 SECONDS INR Date: 06/09/24 Recheck Date: 06/16/24 Rx Instructions: Sunday only formoterol fumarate [Perforomist] 20 mcg/2 mL solution for nebulization 2 ml inhalation BID Qty: 120 6RF Yupelri 175 mcg/3 mL solution for nebulization 175 mcg inhalation DAILY Qty: 90 6RF warfarin 2 mg tablet 2 mg PO DAILY Qty: 90 0RF Protocol: Dose Management Condition: Sunday Dose/Route: 3 mg Instruction: 1 x 3 mg tablet Condition: Sunday Dose/Route: 4 mg Instruction: 2 x 2 mg tablets Condition: Sunday Dose/Route: 3 mg Instruction: 1 x 3 mg tablet Condition: Sunday Dose/Route: 4 mg Instruction: 2 x 2 mg tablets Condition: Dose/Route: 3 mg Instruction: 1 x 3 mg tablet Condition: Sunday Dose/Route: 4 mg Instruction: 2 x 2 mg tablets Condition: Sunday Dose/Route: 3 mg Instruction: 1 x 3 mg tablet Protocol Text: Adjustment Start Date: Sunday06/09/24 INR Value: 21.70 SECONDS INR Date: 06/09/24 Recheck Date: 06/16/24 diltiazem HCl 240 mg capsule,extended release 24 hr 240 mg PO DAILY Qty: 60 0RF albuterol sulfate 90 mcg/actuation HFA aerosol inhaler 2 puff inhalation Q4H PRN (Reason: Shortness Of Breath) Qty: 8.5 6RF citalopram 40 mg tablet 40 mg PO DAILY Qty: 90 1RF tamsulosin [Flomax] 0.4 mg Capsule 0.4 mg PO BEDTIME atorvastatin 20 mg tablet 20 mg PO BEDTIME Tradjenta 5 mg tablet 5 mg PO BEDTIME allopurinol 300 mg tablet 150 mg PO QAM Discharge Orders: Discharge ED (Routine); Ordered 06/09/24 Ordered By: Tuan Cleveland Referrals: Abdirashid Rose MD [Primary Care Provider] - Discharge Diet: Usual diet Discharge Activity: Limit activity as instructed Patient Instructions: Opioid Safety, Pain Management Activity Restrictions/Additional Instructions: Thank you for choosing [facility] for your healthcare needs today. It is very important that you follow up as instructed or that you return to the Emergency Department should you have concerns or if your condition changes or worsens in any way. You were seen in the emergency room for a fall. X-ray of your hip right hip was normal. CT of your lumbar spine showed a new L2 compression fracture. There is no evidence of cord compression or as result of this fracture. It will cause a fair amount of pain. We have talked about wearing a TLSO brace which you declined. Will make arrangements for you to follow-up with Dr. Harrell to evaluate for possible kyphoplasty. Coding Level of Care Code ED On Site Coordinator for 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
[2024-06-09 10:25] LABS: INR 1.82 (0.8-1.2)
[2024-06-09 10:52] VITALS: BP 126/64; PULSE 129; O2SAT 93
[2024-06-09] MEDS: morphine 4 mg/mL SDV 1 mL IM (10:56)
[2024-06-09] MEDS: ondansetron 2 mg/ML SDV 2 mL 4 MG IVP (10:56)
[2024-06-09 11:25] VITALS: BP 153/42; PULSE 108; O2SAT 97
== END 2024-06-09 11:26 | disposition home or self-care (01) ==
PROVIDERS: Emergency Provider Family Medicine; PCP Family Medicine
DX: S32.020A Wedge compression fracture of second lumbar vertebra, initial encounter for closed fracture (principal); Z79.01 Long term (current) use of anticoagulants; Z87.891 Personal history of nicotine dependence; E11.22 Type 2 diabetes mellitus with diabetic chronic kidney disease; I12.9 Hypertensive chronic kidney disease with stage 1 through stage 4 chronic kidney disease, or unspecified chronic kidney disease; N18.4 Chronic kidney disease, stage 4 (severe); J44.9 Chronic obstructive pulmonary disease, unspecified; X58.XXXA Exposure to other specified factors, initial encounter
CPT/HCPCS: 36415; 72131; 73502; 85610; 93005; 96372; 96374; 99285; J2270; J2405

== ENCOUNTER 2024-06-11 02:25 | Inpatient (IN) | payer MEDICARE, BC, SELFPAY ==
[2024-06-11] VITALS (18 sets, daily range): BP systolic 86–125; BP diastolic 54–86; PULSE 63–130; RESP 16–24; TEMP 36.3–36.7; O2SAT 87–97; BMI 25.5
--- NOTE | 2024-06-11 02:20 | ECG_ITS ---
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 Measurements Intervals [place] Rate: 74 P: 70 [place]: 142 QRS: 47 QRSD: 86 T: 90 QT: 370 QTc: 412 Interpretive Statements SINUS RHYTHM NONSPECIFIC T-WAVE ABNORMALITY Compared to ECG 06/09/2024 10:38:47 T-wave abnormality now present Sinus tachycardia no longer present Electronically Signed On 06-11-2024 19:37:30 ROLLER HELPER by Rudi Briscoe M.D. [id number]
--- NOTE | 2024-06-11 02:28 | XRR_ITS ---
PROCEDURE INFORMATION: Exam: XR Chest Exam date and time: 06/11/2024 2:51 AM Age: 84 years old Clinical indication: Shortness of breath and wheezing TECHNIQUE: Imaging protocol: Radiologic exam of the chest. Views: 1 view. COMPARISON: CT chest [facility] [id number] 06/11/2024 2:42 AM FINDINGS: Lungs: Increasing basilar infiltrates from prior comparison which are better visualized on concurrently performed CT of the chest without contrast. Pleural spaces: Unremarkable. No pleural effusion. No pneumothorax. Heart/Mediastinum: Unremarkable. No cardiomegaly. Bones/joints: Degenerative changes visualized osseous structures. XR/XR chest 1V portable [id number] IMPRESSION: Increasing basilar infiltrates prior comparison which are better visualized performed CT of the chest without contrast.
--- NOTE | 2024-06-11 02:30 | W.ED.SOB ---
HPI - SOB/Dyspnea General: Chief Complaint: Shortness of Breath/Dyspnea Stated Complaint: sob Time Seen by Provider: 06/11/24 02:28 History of Present Illness: HPI Narrative: 84-year-old man with a history of COPD, chronic hypoxemic respiratory failure on 2 L nasal cannula at all times, atrial fibrillation on chronic anticoagulation with warfarin, CLL, CKD, type 2 diabetes who presents emergency room with worsening shortness of breath. He had a fall a couple of days ago was seen here in the ER and was diagnosed with thoracic vertebral compression fractures. He says he is continuing to have pain. He says he is also been short of breath since that time. Related Data Home Medications Medication Instructions Recorded Confirmed atorvastatin 20 mg tablet 20 mg PO BEDTIME 12/30/23 06/09/24 linagliptin 5 mg tablet (Tradjenta) 5 mg PO BEDTIME 12/30/23 06/09/24 tamsulosin 0.4 mg capsule (Flomax) 0.4 mg PO BEDTIME 12/30/23 06/09/24 allopurinol 300 mg tablet 150 mg PO QAM 04/11/24 06/09/24 Previous Rx's Medication Instructions Recorded warfarin 3 mg tablet 3 mg PO DIRECTED #90 tabs 11/09/23 ipratropium 0.5 mg-albuterol 3 mg 3 ml inhalation Q6H PRN shortness 12/24/23 (2.5 mg base)/3 mL nebulization of breath or wheezing #180 mL soln olmesartan 5 mg tablet 5 mg PO BID #180 tabs 01/03/24 formoterol fumarate 20 mcg/2 mL 2 ml inhalation BID #120 mL 02/08/24 solution for nebulization (Perforomist) revefenacin 175 mcg/3 mL solution 175 mcg (3 mL) inhalation DAILY 02/26/24 for nebulization (Yupelri) COPD J44.9 #90 mL furosemide 40 mg tablet 40 mg PO DAILY #90 tabs 03/14/24 famotidine 20 mg tablet 20 mg PO BID GERD #60 tabs 04/04/24 warfarin 2 mg tablet 2 mg PO DAILY #90 tabs 04/30/24 diltiazem HCl 240 mg capsule,24 240 mg PO DAILY #60 caps 05/07/24 hr,extended release albuterol sulfate 90 mcg/actuation 2 puff inhalation Q4H PRN 06/03/24 aerosol inhaler Shortness Of Breath #8.5 grams citalopram 40 mg tablet 40 mg PO DAILY #90 tabs 06/09/24 hydrocodone 5 mg-acetaminophen 325 1 tab PO Q6H PRN pain #25 tabs 06/09/24 mg tablet Allergies Allergy/AdvReac Type Severity Reaction Status Date / Time No Known Allergies Allergy Verified 06/11/24 02:31 Review of Systems Narrative: Constitutional symptoms: Negative except as documented in HPI. Skin symptoms: Negative except as documented in HPI. Eye symptoms: Negative except as documented in HPI. ENMT symptoms: Negative except as documented in HPI. Respiratory symptoms: Negative except as documented in HPI. Cardiovascular symptoms: Negative except as documented in HPI. Gastrointestinal symptoms: Negative except as documented in HPI. Genitourinary symptoms: Negative except as documented in HPI. Musculoskeletal symptoms: Negative except as documented in HPI. Neurologic symptoms: Negative except as documented in HPI. Psychiatric symptoms: Negative except as documented in HPI. Endocrine symptoms: Negative except as documented in HPI. PFSH ED PFSH: Medical History CKD (chronic kidney disease), 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 Bennett - 11/2021 at [place], [place] History of prostate surgery History of total knee replacement bilateral History of cholecystectomy Family History Other Cancer Hypertension Lung disease Denies family history of Diabetes CAD (coronary artery disease) Clotting disorder Dementia Hyperlipidemia Psychiatric illness Chronic kidney disease (CKD) Suicide Anesthesia complication Bleeding disorder Stroke Social History Smoking and tobacco/nicotine status: former use of tobacco/nicotine Quit status (tobacco/nicotine): has quit using Year quit tobacco: 2010 - 1PPD x 50 Years Second hand smoke exposure: No Alcohol intake: current Substance/Drug Use: never Lives independently: Yes Household members: spouse Marital status: Current occupational status: retired Do you think of yourself as: Straight/Heterosexual Current gender identity: Male Physical Exam Narrative: EXAM NARRATIVE: General: Alert, no acute distress. Skin: Warm, dry. Head: Normocephalic, atraumatic. Neck: Supple, trachea midline. Eye: Extraocular movements are intact. Ears, nose, mouth and throat: Oral mucosa moist. Cardiovascular: Regular rate and rhythm, Normal peripheral perfusion. Respiratory: coarse, scattered wheeze, mild increased wob. tachypnea, breath sounds are equal, Symmetrical chest wall expansion. Gastrointestinal: Soft, Nontender, Non distended, Normal bowel sounds. Musculoskeletal: Normal ROM, no deformity. Neurological: Alert and oriented to person, place, time, and situation, No focal neurological deficit observed. Psychiatric: Cooperative, appropriate mood & affect. Course Vital Signs: Vital signs: Vital Signs Temperature 98.1 F 06/11/24 02:27 Pulse Rate 116 H 06/11/24 05:00 Respiratory Rate 21 H 06/11/24 05:00 Blood Pressure 119/65 06/11/24 05:00 Pulse Oximetry 94 06/11/24 05:00 Oxygen Delivery Me thod Nasal Cannula 06/11/24 04:00 Oxygen Flow Rate 5 06/11/24 03:15 MDM - SOB/Dyspnea Medical Decision Making Differential diagnosis for patient with shortness of breath includes but is not limited to and based on the above HPI, review of systems and physical exam: Pneumonia. Bronchitis. Asthma or COPD with acute exacerbation. Acute coronary syndrome / ME. Pulmonary embolism. Anxiety. Congestive heart failure. Viral infections including influenza and Covid-19. Atrial fibrillation. Anxiety. Pleural effusion. Pneumothorax. Orders placed to evaluate differential diagnosis based on the above differential, HPI and physical exam EKG: Time 2:27 AM. Rate 74. Normal sinus rhythm, No ST-T changes, no ectopy, normal NE & QRS intervals, This was reviewed and interpreted by myself the ER physician at 2:30 AM Lab Review: Laboratory results were reviewed and interpreted by myself the emergency room physician. Stable leukocytosis patient with CLL. Hemoglobin stable at 10.9. BUN/creatinine are 56 and 4 which is significantly above his baseline which most recently had been 2.5 and 2.7. Lactic acid is mildly elevated at 2.3. Patient is on warfarin. His INR is 1.9. Chest x-ray worsening basilar infiltrates. Recommend CT scan. This was reviewed and interpreted by myself the emergency room physician. I also reviewed the radiology report. CT of the chest without contrast: Atypical pneumonia versus aspiration. Worsening reticular infiltrates. Also worsening nodules of the pancreatic body. This was reviewed and interpreted by myself the emergency room physician. I also reviewed the radiology report. I reviewed the patient's medical record. Reexamination: Patient remained stable. Wheezing and breathing somewhat improved. Pain improved as well. No altered mental status. No focal motor deficits. Consultation: I spoke with Dr. Christopher who is on-call for the hospitalist service who agrees to admission. Assessment and plan: COPD with acute exacerbation Acute on chronic hypoxemic respiratory failure Pneumonia Acute on chronic renal failure Vertebral compression fracture Uncontrolled pain Chronic anticoagulation on Coumadin. ?IV doxycycline, IV Solu-Medrol and updrafts ? Increased oxygen requirements. Currently requiring 5 L versus his home 2 L ?IV Dilaudid and IV Zofran in the emergency room ?Coumadin levels are near therapeutic at 1.9 -I discussed the patient with the hospitalist on-call who is admitting the patient. - Discussed findings and plan with patient. Answered any questions. - All laboratory values were reviewed and interpreted personally by myself, the ER physician - All imaging was reviewed and interpreted personally by myself, the ER physician. - Evaluation and treatment of this problem were appropriate in the emergency setting Lab Data 06/11/24 02:33 06/11/24 03:16 Labs/Radiology: Radiology Impressions Chest X-Ray 06/11/24 02:28 IMPRESSION: Increasing basilar infiltrates prior comparison which are better visualized performed CT of the chest without contrast. Chest CT 06/11/24 02:32 IMPRESSION: 1. Nonspecific lung findings which can be seen acute on chronic bronchitis, aspiration, atypical pneumonias. Correlate clinically. 2. Increasing bibasilar reticular infiltrates which seems to spare the immediate subpleural region suggesting NSIP, however nonspecific in may reflect other types interstitial lung disease/fibrosis. Pulmonary consultation can be obtained. 3. Increasing hypodense nodules of the pancreatic body, suggesting cystic pathology recommend magnetic resonance cholangiopancreatography for further assessment. Laboratory Results WBC 21.46 10^3/uL (3.29-11.43) H 06/11/24 02:33 RBC 3.67 10^6/uL (3.85-5.65) L 06/11/24 02:33 Hgb 10.90 g/dL (11.27-16.99) L 06/11/24 02:33 Hct 35.1 % (37-53) L 06/11/24 02:33 MCV 95.6 fl (82-101) 06/11/24 02:33 MCH 29.7 pg (27-33) 06/11/24 02:33 MCHC 31.1 g/dL (30-55) 06/11/24 02:33 RDW 14.6 % (12.1-15.1) 06/11/24 02:33 Plt Count 314 10^3/cmm (157-399) 06/11/24 02:33 MPV 9.7 fL (7.4-10.4) 06/11/24 02:33 Neut % (Auto) 67.6 % 06/11/24 02:33 Lymph % (Auto) 22.9 % 06/11/24 02:33 [place] % (Auto) 5.8 % 06/11/24 02:33 Eos % (Auto) 2.8 % 06/11/24 02:33 Baso % (Auto) 0.2 % 06/11/24 02:33 Neut # (Auto) 14.51 10^3/uL (1.8-7.7) H 06/11/24 02:33 Lymph # (Auto) 4.9 10^3/uL (0.8-4.8) H 06/11/24 02:33 [place] # (Auto) 1.2 10^3/uL (0.2-0.9) H 06/11/24 02:33 Eos # (Auto) 0.6 10^3/uL (0.0-0.8) 06/11/24 02:33 Baso # (Auto) 0.0 10^3/uL (0.0-0.1) 06/11/24 02:33 Nucleated RBC % (auto) 0 % 06/11/24 02:33 Nucleated RBCs # 0.0 /100WBC 06/11/24 02:33 PT 23.30 SECONDS (12.1-14.9) H 06/11/24 03:16 INR 1.99 (0.8-1.2) H 06/11/24 03:16 APTT 39.8 SECONDS (23.9-36.7) H 06/11/24 03:16 Sodium 135 mmol/L (136-145) L 06/11/24 03:16 Potassium 4.9 mmol/L (3.5-5.1) 06/11/24 03:16 Chloride 96 mmol/L (98-107) L 06/11/24 03:16 Carbon Dioxide 25 mmol/L (22-29) 06/11/24 03:16 Anion Gap 18.9 (5-19) 06/11/24 03:16 BUN 56 mg/dL (8-23) H 06/11/24 03:16 Creatinine 4.0 mg/dL (0.7-1.2) H 06/11/24 03:16 GFR Calculation Not Reportable 06/11/24 03:16 Glucose 143 mg/dL (65-115) H 06/11/24 03:16 Calculated Osmolality 298 mOsm/kg (285-295) H 06/11/24 03:16 Lactic Acid 2.3 mmol/L (0.5-2.2) H 06/11/24 03:16 Lactate Cancelled 06/11/24 03:16 Calcium 8.7 mg/dL (8.5-10.5) 06/11/24 03:16 Total Bilirubin 0.5 mg/dL (0.15-1.2) 06/11/24 03:16 AST 11 U/L (0-40) 06/11/24 03:16 ALT 14 U/L (0-41) 06/11/24 03:16 Alkaline Phosphatase 134 U/L (40-130) H 06/11/24 03:16 Total Protein 6.4 g/dL (6.6-8.7) L 06/11/24 03:16 Albumin 3.5 g/dL (3.5-5.2) 06/11/24 03:16 Globulin 2.9 g/dL (1.3-4.6) 06/11/24 03:16 Urine Color Dark yellow (Yellow) A 06/11/24 04:00 Urine Appearance Clear (CLEAR) 06/11/24 04:00 Urine pH 5 (5-7) 06/11/24 04:00 Ur Specific [place] 1.018 (1.005-1.030) 06/11/24 04:00 Urine Protein Trace (Negative) 06/11/24 04:00 Urine Glucose (UA) Norm (Normal) 06/11/24 04:00 Urine Ketones Trace (Negative) H 06/11/24 04:00 Urine Blood Neg (Negative) 06/11/24 04:00 Urine Nitrate Negative (Negative) 06/11/24 04:00 Urine Bilirubin Neg (Negative) 06/11/24 04:00 Urine Urobilinogen 1.0 mg/dL (Negative) 06/11/24 04:00 Ur Leukocyte Esterase Trace (Negative) 06/11/24 04:00 Urine RBC 0-2 /hpf (0-2) 06/11/24 04:00 Urine WBC 6-10 /hpf (0-5) 06/11/24 04:00 Ur Squamous Epith Cells 0-4 /hpf (0-5) H 06/11/24 04:00 Amorphous Sediment Not Reportable 06/11/24 04:00 Urine Bacteria None /hpf (NONE) 06/11/24 04:00 Hyaline Casts 39.70 /lpf 06/11/24 04:00 Coronavirus (PCR) Negative (Negative) 06/11/24 02:57 Influenza A (PCR) Negative (Negative) 06/11/24 02:57 Influenza Type B (PCR) Negative (Negative) 06/11/24 02:57 RSV (PCR) Negative (Negative) 06/11/24 02:57 All radiology interpretation(s) finalized by discharge Discharge Plan Discharge Patient Disposition: Admitted As Inpatient Clinical Impression: COPD with acute exacerbation, Acute on chronic hypoxic respiratory failure, Pneumonia, Acute on chronic renal insufficiency, Vertebral compression fracture Condition: Stable Coding Level of Care Code ED Analytic Programmer for 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
--- NOTE | 2024-06-11 02:32 | CTR_ITS ---
PROCEDURE INFORMATION: Exam: CT Chest Without Contrast; Diagnostic Exam date and time: 06/11/2024 2:42 AM Age: 84 years old Clinical indication: Shortness of breath; Additional info: SOB TECHNIQUE: Imaging protocol: Diagnostic computed tomography of the chest without contrast. Radiation optimization: All CT scans at this facility use at least one of these dose optimization techniques: automated exposure control; mA and/or kV adjustment per patient size (includes targeted exams where dose is matched to clinical indication); or iterative reconstruction. COMPARISON: CT chest [facility] [id number] 05/20/2023 4:11 PM RADIATION DOSE METRICS: Total DLP (mGy-cm): 449.86 FINDINGS: Lungs: Interval collapse right apical thin walled cavitary lesion, residual uzawi-kbkiecy-jzaz-left apical scarring and emphysematous change. Basilar predominant bilateral bronchial thickening mild bronchiectasis. Multifocal regions of terminal airway opacification is seen. Basilar predominant tree-in-bud nodularity, predominantly peripherally. Basilar reticular opacities are seen. Pleural spaces: Unremarkable. No pneumothorax. No pleural effusion. Heart: Unremarkable. No cardiomegaly. No pericardial effusion. Coronary arteries: Heavy coronary calcified atherosclerotic disease. Lymph nodes: Unremarkable. No enlarged lymph nodes. Vasculature: Heavy calcified atherosclerotic disease of the visualized aorta extending into its major branches. Gallbladder and biliary ducts: Status post cholecystectomy. Pancreas: Fatty atrophy of the pancreas. Increasing size hypodense nodules about the pancreatic body from prior comparison. No ductal dilation. Bones/joints: Diffuse degenerative change of the visualized osseous structures. Findings compatible with evolving DISH. Partial evaluation anterior cervical spine hardware. Soft tissues: Unremarkable. CT/CT chest [facility] [id number] IMPRESSION: 1. Nonspecific lung findings which can be seen acute on chronic bronchitis, aspiration, atypical pneumonias. Correlate clinically. 2. Increasing bibasilar reticular infiltrates which seems to spare the immediate subpleural region suggesting NSIP, however nonspecific in may reflect other types interstitial lung disease/fibrosis. Pulmonary consultation can be obtained. 3. Increasing hypodense nodules of the pancreatic body, suggesting cystic pathology recommend magnetic resonance cholangiopancreatography for further assessment.
[2024-06-11] MEDS: doxycycline 100 MG in sodium chloride 0.9% (plus) 100 ML IV (02:44)
[2024-06-11] MEDS: morphine 4 mg/mL SDV 1 mL 2 MG IVP (02:44)
[2024-06-11] MEDS: methylPREDNISolone sod succ 125 mg/2 mL INJ IVP (02:44)
[2024-06-11] MEDS: ondansetron 2 mg/ML SDV 2 mL 4 MG IVP (02:45)
[2024-06-11 02:49] LABS: Basophils % 0.2 %; Eosinophils # 0.6 10^3/uL (0.0-0.8); Eosinophils % 2.8 %; Hematocrit 35.1 % (37-53); Lymphocytes # 4.9 10^3/uL (0.8-4.8); Lymphocytes % 22.9 %; Mean Corpuscular HGB Conc 31.1 g/dL (30-55); Mean Corpuscular Hemoglobin 29.7 pg (27-33); Mean Corpuscular Volume 95.6 fl (82-101); Mean Platelet Volume 9.7 fL (7.4-10.4); Monocytes # 1.2 10^3/uL (0.2-0.9); Monocytes % 5.8 %; Neutrophils # 14.51 10^3/uL (1.8-7.7); Neutrophils % 67.6 %; Nucleated Red Blood Cells % 0 %; Platelet Count 314 10^3/cmm (157-399); Red Blood Count 3.67 10^6/uL (3.85-5.65); Red Cell Distribution Width 14.6 % (12.1-15.1); White Blood Count 21.46 10^3/uL (3.29-11.43)
[2024-06-11] MEDS: albuterol 2.5 mg/3 mL Neb INHALATION (02:55)
[2024-06-11] MEDS: ipratropium-albuterol 3 mL Neb INHALATION ×4 (02:55→21:30)
[2024-06-11 04:41] LABS: Covid PCR NEGATIVE (Negative); Influenza A NEGATIVE (Negative); Influenza B NEGATIVE (Negative); Respiratory Syncytial Virus Ce NEGATIVE (Negative)
[2024-06-11 04:42] LABS: ABG PCO2 50.4 mmHg (35-45); ABG PH Result 7.31 (7.35-7.45); Arterial Blood Gas Hematocrit 34.4 % (42-52); Base Excess ABG -1.5 mmol/L (-2.0-2.0); Blood Gas Operator Identificat SAM; Blood Gas Sample Site Brachial, right; Blood Gas Sample Type Arterial; Carboxyhemoglobin 1.5 %THgb (0.4-20.1); HCO3 ABG 25.2 mmol/L (22-26); HGB O2 Sat 83.5 % (95-100); Ionized Calcium Level - ABG 1.2 mmol/L (1.1-1.4); Methemoglobin 0.1 % (0.4-1.5); Oxygen Device NC; Oxygen Saturation ABG 84.8; PO2 ABG 51.1 mmHg (80.0-100.0); Potassium Level - ABG 4.8 mmol/L (3.5-5.0); Total Hemoglobin 11.2 g/dL (14-18)
[2024-06-11 05:09] LABS: Lactic Sepsis W/Reflex 2.3 mmol/L (0.5-2.2)
[2024-06-11 05:12] LABS: Alanine Aminotransferase 14 U/L (0-41); Albumin Level 3.5 g/dL (3.5-5.2); Alkaline Phosphatase 134 U/L (40-130); Anion Gap 18.9 (5-19); Aspartate Amino Transferase 11 U/L (0-40); Blood Urea Nitrogen 56 mg/dL (8-23); Calcium 8.7 mg/dL (8.5-10.5); Carbon Dioxide 25 mmol/L (22-29); Chloride 96 mmol/L (98-107); Creatinine Clr Calc Pharmacy 15.3248; Globulin 2.9 g/dL (1.3-4.6); Glucose 143 mg/dL (65-115); Osmolality Calculated 298 mOsm/kg (285-295); Potassium 4.9 mmol/L (3.5-5.1); Sodium 135 mmol/L (136-145); Total Bilirubin 0.5 mg/dL (0.15-1.2); Total Protein 6.4 g/dL (6.6-8.7)
[2024-06-11 05:16] LABS: INR 1.99 (0.8-1.2); Partial Thromboplastin Time 39.8 SECONDS (23.9-36.7)
[2024-06-11 05:20] LABS: Bilirubin Urine Neg (Negative); Blood Urine Neg (Negative); Glucose Urine UA Norm (Normal); Ketones Urine Trace (Negative); Nitrate Urine Negative (Negative); Protein Urine Trace (Negative); Specific Gravity, Urine 1.018 (1.005-1.030); Urine Appearance Clear (CLEAR); Urine Color Dark Yellow (Yellow); pH Urine 5 (5-7)
[2024-06-11 05:21] LABS: Leukocyte Esterase Urine Trace (Negative); RBC Urine 0-2 /hpf (0-2); Squamous Epithelial Cell Urine 0-4 /hpf (0-5)
[2024-06-11] MEDS: sodium chloride 0.9% 1,000 ML 999 ML IV (05:29)
[2024-06-11 06:30] LABS: Glucose Point of Care 205 mg/dL (70-110)
--- NOTE | 2024-06-11 06:46 | PM.HP ---
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 Patient is stating that he fell 2 days ago around 2 AM, since then he has been experiencing severe back pain, he has not lost control of his bladder, no recurrent falls, he has not noticed any fever nausea or vomiting, he has been more short of breath than usual, endorsing chest congestion with productive cough, sputum color has changed from clear white to mild yellow, and last 48 hours his condition has worsened, decreased p.o. intake, he has been compliant with his diuretics, patient is stating that he is supposed to see a scale attendant in September last year Workup in the ER revealed chronic leukocytosis, INR 1.9 hypoxia on ABG 4 L nasal cannula creatinine 4.0 Review of Systems Const: Reports: chills, body aches and fatigue; Denies: fever(s) Eyes: Denies: change in vision ENMT: Denies: throat pain Card: Denies: chest pain Resp: Reports: dyspnea GI: Denies: abdominal pain Musc: Reports: back pain Medications/Allergies Home Medications Medication Instructions Recorded Confirmed Last Taken Type warfarin 3 mg tablet 3 mg PO DIRECTED #90 tabs 11/09/23 06/09/24 04/09/24 Rx ipratropium 0.5 mg-albuterol 3 mg 3 ml inhalation Q6H PRN shortness 12/24/23 06/09/24 Unknown Rx (2.5 mg base)/3 mL nebulization of breath or wheezing #180 mL soln atorvastatin 20 mg tablet 20 mg PO BEDTIME 12/30/23 06/09/24 04/10/24 History linagliptin 5 mg tablet (Tradjenta) 5 mg PO BEDTIME 12/30/23 06/09/24 04/10/24 History tamsulosin 0.4 mg capsule (Flomax) 0.4 mg PO BEDTIME 12/30/23 06/09/24 04/10/24 History olmesartan 5 mg tablet 5 mg PO BID #180 tabs 01/03/24 06/09/24 04/11/24 Rx formoterol fumarate 20 mcg/2 mL 2 ml inhalation BID #120 mL 02/08/24 06/09/24 04/11/24 Rx solution for nebulization (Perforomist) revefenacin 175 mcg/3 mL solution 175 mcg (3 mL) inhalation DAILY 02/26/24 06/09/24 04/11/24 Rx for nebulization (Rosie) COPD J44.9 #90 mL furosemide 40 mg tablet 40 mg PO DAILY #90 tabs 03/14/24 06/09/24 04/11/24 Rx famotidine 20 mg tablet 20 mg PO BID GERD #60 tabs 04/04/24 06/09/24 Unknown Rx allopurinol 300 mg tablet 150 mg PO QAM 04/11/24 06/09/24 04/11/24 History warfarin 2 mg tablet 2 mg PO DAILY #90 tabs 04/30/24 06/09/24 Unknown Rx diltiazem HCl 240 mg capsule,24 240 mg PO DAILY #60 caps 05/07/24 06/09/24 Unknown Rx hr,extended release albuterol sulfate 90 mcg/actuation 2 puff inhalation Q4H PRN 06/03/24 06/09/24 Unknown Rx aerosol inhaler Shortness Of Breath #8.5 grams citalopram 40 mg tablet 40 mg PO DAILY #90 tabs 06/09/24 06/09/24 Unknown Rx hydrocodone 5 mg-acetaminophen 325 1 tab PO Q6H PRN pain #25 tabs 06/09/24 Unknown Rx mg tablet Allergies Allergy/AdvReac Type Severity Reaction Status Date / Time No Known Allergies Allergy Verified 06/11/24 02:31 PFSH Acute PFSH: Medical History CKD (chronic kidney disease), 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 Bennett - 11/2021 at [place], [place] History of prostate surgery History of total knee replacement bilateral History of cholecystectomy Family History Other Cancer Hypertension Lung disease Denies family history of Diabetes CAD (coronary artery disease) Clotting disorder Dementia Hyperlipidemia Psychiatric illness Chronic kidney disease (CKD) Suicide Anesthesia complication Bleeding disorder Stroke Social History Smoking and tobacco/nicotine status: former use of tobacco/nicotine Quit status (tobacco/nicotine): has quit using Year quit tobacco: 2009 - 1PPD x 50 Years Second hand smoke exposure: No Alcohol intake: current Substance/Drug Use: never Lives independently: Yes Household members: spouse Marital status: Current occupational status: retired Do you think of yourself as: Straight/Heterosexual Current gender identity: Male Vitals/I&O/Wt Last Vital Signs Temp 98.1 F 06/11/24 02:27 Pulse 92 06/11/24 06:17 Resp 18 06/11/24 05:34 BP 125/59 06/11/24 06:17 Pulse Ox 87 L 06/11/24 06:17 O2 Del Method Nasal Cannula 06/11/24 05:34 O2 Flow Rate 5 06/11/24 03:15 06/10/24 06/10/24 06/11/24 14:59 22:59 06:59 Intake Total 1600 / 1600 Balance 1600 / 1600 Weight last 48 hrs Weight 81.148 kg Weight 80.739 kg Physical Exam Narrative: No signs of cauda equina Laying supine Euvolemic GCS 15 Nonfocal neuroexam S1, S2 variable Currently on 5 L nasal cannula Bilateral wheeze Chest congestion at the bedside I do not appreciate any focal deficit Data 06/11/24 02:33 06/11/24 03:16 Micro: Microbiology 06/11/24 03:20 Blood Culture - Preliminary Blood SPECIMEN COLLECTED 06/11/24 03:16 Blood Culture - Preliminary Blood SPECIMEN COLLECTED A&P Assessment and plan (1) Paroxysmal atrial fibrillation with RVR: (2) Exertional dyspnea: (3) Type 2 diabetes mellitus: Qualifiers: Diabetes mellitus detention insulin use: without watcher automat long goods use Diabetes mellitus complication status: with kidney complications Diabetes mellitus complication detail: with chronic kidney disease Chronic kidney disease stage: stage 4 (severe) Qualified Code(s): E11.22 - Type 2 diabetes mellitus with diabetic chronic kidney disease; N18.4 - Chronic kidney disease, stage 4 (severe) (4) Acute on chronic renal insufficiency: (5) Chronic lymphocytic leukemia: (6) COPD with acute exacerbation: (7) Pneumonia: (8) Compression fx, lumbar spine: Plan Acute on chronic hypoxia Underlying COPD CT scan consistent with pulmonary fibrosis changes Patient is on triple inhaler Advanced COPD Currently on 5 L At baseline uses 2 L at home No fever Chronic leukocytosis Will start patient on cefepime and azithromycin regimen Pancreatic cyst: No previous history of GI malignancy or pancreatic cyst as per the patient Outpatient MRCP Compression fracture: No signs of cauda equina Patient has been evaluated by Dr. Harrell May need lumbar MRI Acute on chronic kidney disease, looks dehydrated decreased p.o. intake in last 48 hours, hold diuretics Monitor kidney function correlate with urine output and creatinine Full code A-fib without RVR continue Coumadin and diltiazem BPH: Continue tamsulosin Consistent carb diet with sliding scale Attestations Medical Necessity Statement*: Anticipating discharge within 48 hours Diagnoses Paroxysmal atrial fibrillation with RVR I48.0 Exertional dyspnea R06.09 Type 2 diabetes mellitus with stage 4 chronic kidney disease, without long-term current use of insulin E11.22; N18.4 Diabetes mellitus detention insulin use: without watcher automat long goods use Diabetes mellitus complication status: with kidney complications Diabetes mellitus complication detail: with chronic kidney disease Chronic kidney disease stage: stage 4 (severe) Acute on chronic renal insufficiency N28.9; N18.9 Chronic lymphocytic leukemia C91.10 COPD with acute exacerbation J44.1 Pneumonia J18.9 Compression fx, lumbar spine S32.000A
[2024-06-11 06:57] LABS: Reflex Lactate Order REFLEX LACTIC ORDERD
--- NOTE | 2024-06-11 07:07 | PM.CONSULT ---
Providers/Reason For Consult Consulting Physician/Specialty*: Hospitalist Reason for Consult*: L2 compression fracture Attending Physician: Patsy Christopher MD Primary Care Provider: Abdirashid Rose MD History of Present Illness History of Present Illness Jesús Cole is a 84 year old male fell at home last night. Patient is having back pain. Has difficulty moving. is at bedside patient is confused. Patient is not complaining of any leg symptoms. Review of Systems Const: Denies: fever(s) or chills Card: Denies: chest pain Resp: Denies: dyspnea GI: Denies: abdominal pain : Denies: dysuria, urinary frequency or urinary urgency Musc: Reports: back pain and joint pain (Right hip); Denies: neck pain Skin/Breast: Denies: rash Medications/Allergies Home Medications Medication Instructions Recorded Confirmed Last Taken Type warfarin 3 mg tablet 3 mg PO DIRECTED #90 tabs 11/09/23 06/09/24 04/09/24 Rx ipratropium 0.5 mg-albuterol 3 mg 3 ml inhalation Q6H PRN shortness 12/24/23 06/09/24 Unknown Rx (2.5 mg base)/3 mL nebulization of breath or wheezing #180 mL soln atorvastatin 20 mg tablet 20 mg PO BEDTIME 12/30/23 06/09/24 04/10/24 History linagliptin 5 mg tablet (Tradjenta) 5 mg PO BEDTIME 12/30/23 06/09/24 04/10/24 History tamsulosin 0.4 mg capsule (Flomax) 0.4 mg PO BEDTIME 12/30/23 06/09/24 04/10/24 History olmesartan 5 mg tablet 5 mg PO BID #180 tabs 01/03/24 06/09/24 04/11/24 Rx formoterol fumarate 20 mcg/2 mL 2 ml inhalation BID #120 mL 02/08/24 06/09/24 04/11/24 Rx solution for nebulization (Perforomist) revefenacin 175 mcg/3 mL solution 175 mcg (3 mL) inhalation DAILY 02/26/24 06/09/24 04/11/24 Rx for nebulization (Yupelri) COPD J44.9 #90 mL furosemide 40 mg tablet 40 mg PO DAILY #90 tabs 03/14/24 06/09/24 04/11/24 Rx famotidine 20 mg tablet 20 mg PO BID GERD #60 tabs 04/04/24 06/09/24 Unknown Rx allopurinol 300 mg tablet 150 mg PO QAM 04/11/24 06/09/24 04/11/24 History warfarin 2 mg tablet 2 mg PO DAILY #90 tabs 04/30/24 06/09/24 Unknown Rx diltiazem HCl 240 mg capsule,24 240 mg PO DAILY #60 caps 05/07/24 06/09/24 Unknown Rx hr,extended release albuterol sulfate 90 mcg/actuation 2 puff inhalation Q4H PRN 06/03/24 06/09/24 Unknown Rx aerosol inhaler Shortness Of Breath #8.5 grams citalopram 40 mg tablet 40 mg PO DAILY #90 tabs 06/09/24 06/09/24 Unknown Rx hydrocodone 5 mg-acetaminophen 325 1 tab PO Q6H PRN pain #25 tabs 06/09/24 Unknown Rx mg tablet Allergies Allergy/AdvReac Type Severity Reaction Status Date / Time No Known Allergies Allergy Verified 06/11/24 02:31 PFSH Acute PFSH: Medical History CKD (chronic kidney disease), 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 Bennett - 11/2021 at [place], [place] History of prostate surgery History of total knee replacement bilateral History of cholecystectomy Family History Other Cancer Hypertension Lung disease Denies family history of Diabetes CAD (coronary artery disease) Clotting disorder Dementia Hyperlipidemia Psychiatric illness Chronic kidney disease (CKD) Suicide Anesthesia complication Bleeding disorder Stroke Social History Smoking and tobacco/nicotine status: former use of tobacco/nicotine Quit status (tobacco/nicotine): has quit using Year quit tobacco: 2010 - 1PPD x 50 Years Second hand smoke exposure: No Alcohol intake: current Substance/Drug Use: never Lives independently: Yes Household members: spouse Marital status: Current occupational status: retired Do you think of yourself as: Straight/Heterosexual Current gender identity: Male Vitals/I&O/Wt Last Vital Signs Temp 97.8 F 06/11/24 07:01 Pulse 81 06/11/24 07:01 Resp 20 H 06/11/24 07:01 BP 123/54 06/11/24 07:01 Pulse Ox 97 06/11/24 07:01 O2 Del Method Room Air 06/11/24 07:01 O2 Flow Rate 5 06/11/24 03:15 06/10/24 06/11/24 06/11/24 22:59 06:59 14:59 Intake Total 1600 / 1600 Balance 1600 / 1600 Weight last 48 hrs Weight 178 lb 14.4 oz Weight 178 lb Physical Exam Narrative: Patient has 4 out of 5 strength in bilateral lower extremities. Patient is confused Patient has audible crackling of his lungs. And shortness of breath. Data 06/11/24 02:33 06/11/24 03:16 Micro: Microbiology 06/11/24 03:20 Blood Culture - Preliminary Blood SPECIMEN COLLECTED 06/11/24 03:16 Blood Culture - Preliminary Blood SPECIMEN COLLECTED A&P Assessment and plan (1) Compression fx, lumbar spine: Patient has L2 compression fracture on CT scan. Will plan to get an MRI of his lumbar spine to determine the acuity of the fracture. Discussed possible kyphoplasty with the patient's . However with patient's lungs as they are I would hold off from surgery till this clears up. However we can get the information from the MRI to determine the acuity for possible kyphoplasty in the future. Qualifiers: Encounter type: initial encounter Lumbar vertebra fracture level: L2 Qualified Code(s): S32.020A - Wedge compression fracture of second lumbar vertebra, initial encounter for closed fracture Coding Level of Care Code Acute Code for Chg Fwd Diagnoses Compression fracture of L2 vertebra, initial encounter S32.020A Encounter type: initial encounter Lumbar vertebra fracture level: L2
--- NOTE | 2024-06-11 07:09 | MR_ITS ---
WS: [id number] MRI LUMBAR SPINE NONCONTRAST HISTORY: L2 compression fracture COMPARISON: CT lumbar spine 06/09/2024 TECHNIQUE: Sagittal and axial multisequence imaging is submitted. Prior anterior cervical fusion at C5-6. Mild increase in thoracic kyphosis. Thoracic alignment is normal. Edema within a large portion of the L2 vertebral body consistent with t he recently described minimal compression deformity. Edema predominantly involves the mid to superior endplate with slight extension into the proximal RIGHT pedicle. No additional fractures or marrow ed guerita. No retropulsion of L2. Disc spaces and vertebral body heights are well-preserved. Conus terminates normally at L1-2 disc level. L1-L2: Mild annular disc bulging with ligamentum flavum and facet arthritis. Very mild encroachment u jack the subarticular recesses and foramina. There is slight disc contact on the traversing L2 nerve r oots. L2-L3: Annular disc bulging with ligamentum flavum and facet arthritis. Very mild central, bilateral subarticular recess and RIGHT foraminal stenosis. L3-L4: Moderate annular disc bulging with mild osteophytic ridging, ligamentum flavum and facet arthr itis. Moderate central with bilateral subarticular recess and mild foraminal stenosis. There is disc contacting the traversing L4 nerve roots. L4-L5: Moderate annular disc bulging with ligamentum flavum and facet arthritis. Fluid in the facet j oints. Severe central with bilateral subarticular recess and mild RIGHT foraminal stenosis. There stringer s appear to be a small disc protrusion contacting the RIGHT traversing L5 nerve root in the subarticu lar recess. L5-S1: Mild annular disc bulging with ligamentum flavum and facet arthritis. Small central disc protr usion. Disc does contact the traversing S1 nerve roots. Mild central, bilateral subarticular recess a nd RIGHT foraminal stenosis. Mildly ectatic abdominal aorta to 2.7 cm in diameter. MR/MR lumbar spine wo con* [id number] IMPRESSION: 1. Acute L2 compression fracture by approximately 10% without retropulsion. No interval change since the prior lumbar CT of 06/09/2024. 2. Stenosis at multiple disc levels. Stenosis is due to combination of osteoph ytic ridging, disc protrusions, ligamentum flavum and facet arthritis. 3. L3-4: Moderate central with bilateral subarticular recess and mild foramina l stenosis. 4. L4-5: Severe central with bilateral subarticular recess and mild RIGHT fora [place] stenosis. Probable small disc protrusion contacting the RIGHT traversing L5 nerve root in the subarticular recess. 5. L5-S1: Small central disc protrusion contacting the traversing S1 nerve leo ts. Mild central, bilateral subarticular recess and RIGHT foraminal stenosis. 6. L2-3: Mild central, bilateral subarticular recess and RIGHT foraminal steno sis. 7. L1-2: Very mild disc contact on the traversing L2 nerve roots.
[2024-06-11 07:25] LABS: D Dimer 3.68 ug/mLFEU (0-0.59)
[2024-06-11 07:26] LABS: Procalcitonin 0.46 ng/mL (0-0.5)
[2024-06-11] MEDS: insulin lispro 100 unit/1 mL SUBCUT ×4 (08:28→22:52)
[2024-06-11] MEDS: cefepime 2,000 mg SDV 2000 MG IVP (08:28)
[2024-06-11] MEDS: dilTIAZem ER (24HR) 240 mg Capsule PO (08:29)
[2024-06-11] MEDS: azithromycin 250 mg Tablet 500 MG PO (08:29)
[2024-06-11] MEDS: sennosides-docusate Tablet 1 TAB PO (08:29)
--- NOTE | 2024-06-11 08:56 | FL_ITS ---
WS: [id number] FL barium swallow modifd [id number] REASON FOR EXAM: Oropharyngeal dysphagia FLUOROSCOPY TIME: 2.8 # OF SPOT FILMS: None FINDINGS: Examination was supervised by the speech therapy department. The patient was examined in the sitting upright lateral projection. The swallowing of varying consistencies of barium was performed under fluoroscopic guidance and video recorded. No obstruction or aspiration. Detailed report of the swallowing will be rendered by the speech therapy department. FL/FL barium swallow modifd [id number] IMPRESSION: Modified barium swallow as above.
[2024-06-11 09:47] LABS: Lactic Acid level (Lactate) 2.8 mmol/L (0.5-2.2)
[2024-06-11 11:53] LABS: Glucose Point of Care 230 mg/dL (70-110)
[2024-06-11] MEDS: morphine IR 15 mg Tablet PO (11:55)
--- NOTE | 2024-06-11 12:31 | P.PN_ITS ---
Subjective 2 Subjective: He states he has been coughing and bringing up copious amounts of phlegm. He did okay with swallow evaluation. No issues during MRI. Vitals/I&O/Wt Last Vital Signs Temp 98.0 F 06/11/24 12:00 Pulse 75 06/11/24 12:00 Resp 20 H 06/11/24 12:00 BP 114/60 06/11/24 12:00 Pulse Ox 94 06/11/24 12:00 O2 Del Method Nasal Cannula 06/11/24 12:00 O2 Flow Rate 5 06/11/24 09:30 06/10/24 06/11/24 06/11/24 22:59 06:59 14:59 Intake Total 1600 / 1600 480 / 480 Balance 1600 / 1600 480 / 480 Weight last 48 hrs Weight 81.148 kg Weight 80.739 kg Physical Exam 2 Const: COMMON NORMALS: patient oriented x3 and alert GENERAL APPEARANCE: c ooperative ORIENTATION/CONSCIOUSNESS: Yes awake HENMT: COMMON NORMALS: oropharynx normal Neck/C-Spine: COMMON NORMALS: no JVD Resp: AUSCULTATION: rhonchi, wheezes and diminished lung sounds Cardio: COMMON NORMALS: no JVD, regular rhythm, S1 normal heart sound present, S2 normal heart sound present and No murmurs present (Cardio) RHYTHM: regular rhythm HEART SOUNDS: S1 normal heart sound present and S2 normal heart sound present GI: COMMON NORMALS: Normal to inspection, nondistended, normoactive bowel sounds present, Soft to palpation and non-tender PALPATION: Yes Soft to palpation Extremity: COMMON NORMALS: no joint enlargement and no pedal edema Neuro: COMMON NORMALS: patient oriented x3 and moves all extremities S ENSORIUM/ORIENTATION: Yes alert Skin: COMMON NORMALS: no rashes or lesions noted GENERAL SKIN EXAM: no rashes or lesions noted Data 06/11/24 02:33 06/11/24 03:16 Micro: Microbiology 06/11/24 03:20 Blood Culture - Preliminary Blood SPECIMEN COLLECTED 06/11/24 03:16 Blood Culture - Preliminary Blood SPECIMEN COLLECTED A&P Assessment and plan (1) Paroxysmal atrial fibrillation with RVR: (2) Exertional dyspnea: (3) Type 2 diabetes mellitus: Qualifiers: Diabetes mellitus intermediate insulin use: without terminal makeup operator use Diabetes mellitus complication status: with kidney complications Diabetes mellitus complication detail: with chronic kidney disease Chronic kidney disease stage: stage 4 (severe) Qualified Code(s): E11.22 - Type 2 diabetes mellitus with diabetic chronic kidney disease; N18.4 - Chronic kidney disease, stage 4 (severe) (4) Acute on chronic renal insufficiency: (5) Chronic lymphocytic leukemia: (6) COPD with acute exacerbation: (7) Pneumonia: (8) Compression fx, lumbar spine: Qualifiers: Encounter type: initial encounter Lumbar vertebra fracture level: L2 Qualified Code(s): S32.020A - Wedge compression fracture of second lumbar vertebra, initial encounter for closed fracture Plan Acute on chronic hypoxia Continues to require 5 L nasal cannula oxygen. Normally on 2 at home. With cough, copious productive phlegm. Decreased air entry on exam with bilateral rhonchi, wheezing. Severe COPD exacerbation, concomitant atypical pneumonia with bibasilar reticular infiltrates suggesting NSIP. Discussed with him. Reviewed CBC, ABG, CMP, lactic acid, procalcitonin, influenza, COVID, RSV PCR. Chest CT. Additional assessment requested with expanded viral panel. Modified barium swallow. Discussed with speech therapist. With prior pseudomonal pneumonia, continue cefepime. Monitor for risk of encephalopathy with cefepime. Requesting sputum culture. Flutter valve. Continue oxygen support. Reassess. Discussed with him additional consideration of possible interstitial lung disease. Discussed would benefit from follow-up with pulmonology. Previously has seen a mobile marketing specialist here. He also has underlying diaphragm dysfunction. Discussed with caseworker. Pancreatic cyst: No previous history of GI malignancy or pancreatic cyst as per the patient Outpatient MRCP Compression fracture: No signs of cauda equina. Reviewed orthopedics note. Has had MRI. 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 Continue treatment of acute respiratory illness, orthopedic follow-up may be considered after improvement of respiratory issues in case of persistence or worsening symptoms of vertebral compression. Acute on chronic kidney disease, looks dehydrated decreased p.o. intake in last 48 hours, hold diuretics Monitor kidney function correlate with urine output and creatinine Repeat chemistry. 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 Diagnoses Paroxysmal atrial fibrillation with RVR I48.0 Exertional dyspnea R06.09 Type 2 diabetes mellitus with stage 4 chronic kidney disease, without long-term current use of insulin E11.22; N18.4 Diabetes mellitus intermediate insulin use: without intermediate use Diabetes mellitus complication status: with kidney complications Diabetes mellitus complication detail: with chronic kidney disease Chronic kidney disease stage: stage 4 (severe) Acute on chronic renal insufficiency N28.9; N18.9 Chronic lymphocytic leukemia C91.10 COPD with acute exacerbation J44.1 Pneumonia J18.9 Compression fracture of L2 vertebra, initial encounter S32.020A Encounter type: initial encounter Lumbar vertebra fracture level: L2
[2024-06-11] MEDS: methylPREDNISolone sod succ 40 mg/mL INJ IVP ×2 (13:41→18:00)
[2024-06-11] MEDS: warfarin 4 mg Tablet PO (13:41)
--- NOTE | 2024-06-11 14:11 | ECG_ITS ---
[facility]: 2024-[facility]11 Pat Name: Jesús Cole Department: Room: 259 Gender: Male Butt Maker: : 1940 Requested By: Aamir Silverio Order Number: [id number] [place] MD: Rudi Briscoe M.D. Measurements Intervals [place] Rate: 66 P: 78 PA: 148 QRS: 35 QRSD: 94 T: 76 QT: 394 QTc: 415 Interpretive Statements SINUS RHYTHM Compared to ECG 06/11/2024 02:27:38 T-wave abnormality no longer present Electronically Signed On 06-11-2024 19:37:36 INSTALLMENT DEALER by Rudi Briscoe M.D. [email or web address]
[2024-06-11 14:56] LABS: Adenovirus Not Detected (NOT DETECT); Chlamydia Pneumoniae Not Detected (NOT DETECT); Coronavirus 229E,HKU1,NL63,OC4 Not Detected (NOT DETECT); Human Metapneumovirus Not Detected (NOT DETECT); Human Rhinovirus/Enterovirus Not Detected (NOT DETECT); Influenza A Not Detected (NOT DETECT); Influenza A H1 Not Detected (NOT DETECT); Influenza A H1-2009 Not Detected (NOT DETECT); Influenza A H3 Not Detected (NOT DETECT); Influenza B Not Detected (NOT DETECT); Mycoplasma Pneumoniae Not Detected (NOT DETECT); Parainfluenza Virus Type 1 Not Detected (NOT DETECT); Parainfluenza Virus Type 2 Not Detected (NOT DETECT); Parainfluenza Virus Type 3 Not Detected (NOT DETECT); Parainfluenza Virus Type 4 Not Detected (NOT DETECT); Respiratory Syncytial Virus A Not Detected (NOT DETECT); Respiratory Syncytial Virus B Not Detected (NOT DETECT); SARS-COV-2 Not Detected (NOT DETECT)
[2024-06-11 16:26] LABS: Glucose Point of Care 212 mg/dL (70-110)
[2024-06-11] MEDS: HYDROcodone-acetaminophen 5-325 mg Tablet 1 TAB PO (17:59)
[2024-06-11 20:57] LABS: Glucose Point of Care 289 mg/dL (70-110)
[2024-06-11] MEDS: tamsulosin 0.4 mg Capsule PO (22:52)
[2024-06-12] VITALS (13 sets, daily range): BP systolic 95–113; BP diastolic 48–69; PULSE 64–93; RESP 9–20; TEMP 36.4–36.7; O2SAT 90–96
[2024-06-12] MEDS: methylPREDNISolone sod succ 40 mg/mL INJ IVP ×4 (00:28→21:56)
[2024-06-12] MEDS: ipratropium-albuterol 3 mL Neb INHALATION ×4 (03:01→19:45)
[2024-06-12] MEDS: allopurinol 300 mg Tablet 150 MG PO (05:36)
[2024-06-12 05:57] LABS: Basophils % 0.1 %; Lymphocytes # 3.7 10^3/uL (0.8-4.8); Lymphocytes % 13.3 %; Mean Corpuscular HGB Conc 31.3 g/dL (30-55); Mean Corpuscular Hemoglobin 30.3 pg (27-33); Mean Corpuscular Volume 96.9 fl (82-101); Mean Platelet Volume 9.5 fL (7.4-10.4); Monocytes # 0.5 10^3/uL (0.2-0.9); Monocytes % 1.8 %; Neutrophils # 23.61 10^3/uL (1.8-7.7); Neutrophils % 83.6 %; Nucleated Red Blood Cells % 0 %; Platelet Count 300 10^3/cmm (157-399); Red Cell Distribution Width 14.6 % (12.1-15.1); White Blood Count 28.21 10^3/uL (3.29-11.43)
[2024-06-12 06:10] LABS: INR 2.77 (0.8-1.2)
[2024-06-12 06:14] LABS: Alanine Aminotransferase 11 U/L (0-41); Albumin Level 3.2 g/dL (3.5-5.2); Alkaline Phosphatase 118 U/L (40-130); Anion Gap 20.7 (5-19); Aspartate Amino Transferase 7 U/L (0-40); Blood Urea Nitrogen 70 mg/dL (8-23); C Reactive Protein 101.6 mg/L (0.0-4.9); Calcium 8.5 mg/dL (8.5-10.5); Carbon Dioxide 21 mmol/L (22-29); Chloride 101 mmol/L (98-107); Creatinine Clr Calc Pharmacy 15.4301; Globulin 2.7 g/dL (1.3-4.6); Glucose 183 mg/dL (65-115); Magnesium 2.2 mg/dL (1.7-2.3); Osmolality Calculated 309 mOsm/kg (285-295); Potassium 5.7 mmol/L (3.5-5.1); Sodium 137 mmol/L (136-145); Total Bilirubin 0.2 mg/dL (0.15-1.2); Total Protein 5.9 g/dL (6.6-8.7)
[2024-06-12 06:34] LABS: Glucose Point of Care 235 mg/dL (70-110)
--- NOTE | 2024-06-12 07:51 | P.PN_ITS ---
Subjective 2 Subjective: Patient is sitting up in bed eating breakfast. Has some back pain but is tolerable. Vitals/I&O/Wt Last Vital Signs Temp 97.6 F 06/12/24 04:00 Pulse 64 06/12/24 04:00 Resp 9 L 06/12/24 04:00 BP 100/57 06/12/24 04:00 Pulse Ox 95 06/12/24 04:00 O2 Del Method Nasal Cannula 06/12/24 04:00 O2 Flow Rate 3 06/12/24 03:01 06/11/24 06/12/24 06/12/24 22:59 06:59 14:59 Output Total 700 / 700 200 / 900 Balance -700 / -220 -200 / -420 Weight last 48 hrs Weight 191 lb 7 oz Weight 178 lb 14.4 oz Weight 178 lb Physical Exam 2 Narrative: On physical exam patient has 5 5 strength bilateral lower extremities sensations intact. Patient stated he was up ambulating with physical therapy yesterday. Urinary Catheter Management: Yu: Cath Placed During This Visit: yes Reason for Continuing Indwelling Catheter: Acute Urinary Retention or Obstruction Urinary Catheter Date of Insertion: 06/11/24 Urinary Catheter Time of Insertion: 17:39 Data 06/12/24 05:27 06/12/24 05:27 Micro: Microbiology 06/11/24 03:20 Blood Culture - Preliminary Blood NEGATIVE TO DATE 06/11/24 03:16 Blood Culture - Preliminary Blood NEGATIVE TO DATE A&P Assessment and plan (1) Compression fx, lumbar spine: Patient has an acute L2 compression fracture. This is confirmed by MRI. Discussed with him treatment options which included wearing a brace versus kyphoplasty. This point we will try to use a TLSO brace. Patient should have this brace on when he is out of bed. Patient can follow-up in clinic in 2 weeks. Qualifiers: Encounter type: initial encounter Lumbar vertebra fracture level: L2 Qualified Code(s): S32.020A - Wedge compression fracture of second lumbar vertebra, initial encounter for closed fracture Attestations 2 Medical Necessity Statement*: Per primary service Coding Level of Care Code Acute Code for Chg Fwd Diagnoses Compression fracture of L2 vertebra, initial encounter S32.020A Encounter type: initial encounter Lumbar vertebra fracture level: L2
[2024-06-12] MEDS: insulin lispro 100 unit/1 mL SUBCUT ×3 (10:50→21:56)
[2024-06-12] MEDS: sennosides-docusate Tablet 1 TAB PO (10:51)
[2024-06-12] MEDS: dilTIAZem ER (24HR) 240 mg Capsule PO (10:51)
[2024-06-12] MEDS: HYDROcodone-acetaminophen 5-325 mg Tablet 1 TAB PO (10:51)
[2024-06-12] MEDS: cefepime 1,000 mg SDV 1000 MG IVP (10:51)
[2024-06-12] MEDS: azithromycin 250 mg Tablet 500 MG PO (10:51)
[2024-06-12 11:35] LABS: Glucose Point of Care 213 mg/dL (70-110)
[2024-06-12] MEDS: warfarin 3 mg Tablet PO (13:42)
--- NOTE | 2024-06-12 19:20 | P.PN_ITS ---
Subjective 2 Subjective: Still coughing, producing phlegm. Feeling minimally better. Worked with PT. Vitals/I&O/Wt Last Vital Signs Temp 98.0 F 06/12/24 18:00 Pulse 89 06/12/24 18:00 Resp 18 06/12/24 18:00 BP 103/63 06/12/24 18:00 Pulse Ox 93 06/12/24 18:00 O2 Del Method Nasal Cannula 06/12/24 18:00 O2 Flow Rate 3 06/12/24 14:22 06/12/24 06/12/24 06/12/24 06:59 14:59 22:59 Intake Total 720 / 720 480 / 1200 Output Total 200 / 900 200 / 200 Balance -200 / -420 720 / 720 280 / 1000 Weight last 48 hrs Weight 86.835 kg Weight 81.148 kg Weight 80.739 kg Physical Exam 2 Const: COMMON NORMALS: patient oriented x3 and alert GENERAL APPEARANCE: c ooperative ORIENTATION/CONSCIOUSNESS: Yes awake HENMT: COMMON NORMALS: oropharynx normal Neck/C-Spine: COMMON NORMALS: no JVD Resp: AUSCULTATION: rhonchi, wheezes and diminished lung sounds Cardio: COMMON NORMALS: no JVD, regular rhythm, S1 normal heart sound present, S2 normal heart sound present and No murmurs present (Cardio) RHYTHM: regular rhythm HEART SOUNDS: S1 normal heart sound present and S2 normal heart sound present GI: COMMON NORMALS: Normal to inspection, nondistended, normoactive bowel sounds present, Soft to palpation and non-tender PALPATION: Yes Soft to palpation Extremity: COMMON NORMALS: no joint enlargement and no pedal edema Neuro: COMMON NORMALS: patient oriented x3 and moves all extremities S ENSORIUM/ORIENTATION: Yes alert Skin: COMMON NORMALS: no rashes or lesions noted GENERAL SKIN EXAM: no rashes or lesions noted Urinary Catheter Management: Yu: Cath Placed During This Visit: yes Reason for Continuing Indwelling Catheter: Acute Urinary Retention or Obstruction Urinary Catheter Date of Insertion: 06/11/24 Urinary Catheter Time of Insertion: 17:39 Data 06/12/24 05:27 06/12/24 05:27 Micro: Microbiology 06/12/24 14:25 Gram Stain - Final Sputum - Expectorated Sputum 06/11/24 03:20 Blood Culture - Preliminary Blood Staphylococcus epidermidis 12/04/24 03:16 Blood Culture - Preliminary Blood NEGATIVE TO DATE A&P Assessment and plan (1) Paroxysmal atrial fibrillation with RVR: (2) Exertional dyspnea: (3) Type 2 diabetes mellitus: Qualifiers: Diabetes mellitus joint terminal attack controller insulin use: without joint terminal attack controller use Diabetes mellitus complication status: with kidney complications Diabetes mellitus complication detail: with chronic kidney disease Chronic kidney disease stage: stage 4 (severe) Qualified Code(s): E11.22 - Type 2 diabetes mellitus with diabetic chronic kidney disease; N18.4 - Chronic kidney disease, stage 4 (severe) (4) Acute on chronic renal insufficiency: (5) Chronic lymphocytic leukemia: (6) COPD with acute exacerbation: (7) Pneumonia: (8) Compression fx, lumbar spine: Qualifiers: Encounter type: initial encounter Lumbar vertebra fracture level: L2 Qualified Code(s): S32.020A - Wedge compression fracture of second lumbar vertebra, initial encounter for closed fracture Plan Acute on chronic hypoxia Still coughing, productive cough, dyspnea, dyspnea on exertion, copious secretions, will try to provide a sample for sputum culture. Encouraged flutter valve use, discussed with him how to use it. Reviewed vitals, CBC, INR, CMP, magnesium, blood culture. So far some improvement in oxygen requirement, down to 3 L. Rhonchi, wheezing on exam. Continue Solu-Medrol 40 mg IV every 6 hours, monitor for risk of hyperglycemia, hypertension, encephalopathy, gastritis. Continue antibiotic coverage with cefepime. Follow-up cultures. Continue breathing treatments, expectorant therapy. Add Mucinex. Discussed with nursing, comp field case manager. With physical deconditioning, continue mobilization with physical therapy. Further consideration of home health versus SNF. Continues to require 5 L nasal cannula oxygen. Normally on 2 at home. With cough, copious productive phlegm. Decreased air entry on exam with bilateral rhonchi, wheezing. Severe COPD exacerbation, concomitant atypical pneumonia with bibasilar reticular infiltrates suggesting NSIP. With prior pseudomonal pneumonia, continue cefepime. Monitor for risk of encephalopathy with cefepime. Requesting sputum culture. Discussed with him additional consideration of possible interstitial lung disease. Discussed would benefit from follow-up with pulmonology. Previously has seen a residential support specialist here. He also has underlying diaphragm dysfunction. Pancreatic cyst: No previous history of GI malignancy or pancreatic cyst as per the patient Outpatient MRCP Compression fracture: Reviewed orthopedics note. TLSO brace will be attempted. Follow-up with orthopedics in office in 2 weeks. No signs of cauda equina. Reviewed orthopedics note. Has had MRI. 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 Continue treatment of acute respiratory illness, orthopedic follow-up may be considered after improvement of respiratory issues in case of persistence or worsening symptoms of vertebral compression. Acute on chronic kidney disease, looks dehydrated decreased p.o. intake in last 48 hours, hold diuretics Monitor kidney function correlate with urine output and creatinine Repeat chemistry. Full code A-fib without RVR continue Coumadin and diltiazem. Reviewed INR. Therapeutic. 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 and High MDM includes amount and/or complexity of data reviewed/ordered [ previous or external records, resulted lab(s)/test(s) and other healthcare professional discussion] and described risk of complication, morbidity or mortality of management as documented Diagnoses Paroxysmal atrial fibrillation with RVR I48.0 Exertional dyspnea R06.09 Type 2 diabetes mellitus with stage 4 chronic kidney disease, without long-term current use of insulin E11.22; N18.4 Diabetes mellitus joint terminal attack controller insulin use: without joint terminal attack controller use Diabetes mellitus complication status: with kidney complications Diabetes mellitus complication detail: with chronic kidney disease Chronic kidney disease stage: stage 4 (severe) Acute on chronic renal insufficiency N28.9; N18.9 Chronic lymphocytic leukemia C91.10 COPD with acute exacerbation J44.1 Pneumonia J18.9 Compression fracture of L2 vertebra, initial encounter S32.020A Encounter type: initial encounter Lumbar vertebra fracture level: L2
[2024-06-12 21:47] LABS: Glucose Point of Care 248 mg/dL (70-110)
[2024-06-12] MEDS: tamsulosin 0.4 mg Capsule PO (21:55)
[2024-06-13] VITALS (13 sets, daily range): BP systolic 109–132; BP diastolic 44–64; PULSE 64–98; RESP 15–20; TEMP 36.3–36.8; O2SAT 90–97
[2024-06-13] MEDS: ipratropium-albuterol 3 mL Neb INHALATION ×4 (02:34→20:54)
[2024-06-13] MEDS: methylPREDNISolone sod succ 40 mg/mL INJ IVP ×3 (02:34→17:40)
[2024-06-13 02:38] LABS: Bacillus cereus group Not Detected (NOT DETECT); Bacillus subtillis group Not Detected (NOT DETECT); Corynebacterium Not Detected (NOT DETECT); Cutibacterium acnes (P.acnes) Not Detected (NOT DETECT); Enterococcus Not Detected (NOT DETECT); Enterococcus faecalis Not Detected (NOT DETECT); Enterococcus faecium Not Detected (NOT DETECT); Lactobacillus species Not Detected (NOT DETECT); Listeria Not Detected (NOT DETECT); Listeria monocytogenes Not Detected (NOT DETECT); Micrococcus Not Detected (NOT DETECT); Pan Candida Not Detected (NOT DETECT); Pan Gram-Negative Not Detected (NOT DETECT); Staphylococcus epidermidis Not Detected (NOT DETECT); Staphylococcus lugdunensis Not Detected (NOT DETECT); Staphylococcus species Not Detected (NOT DETECT); Streptococcus agalactiae Not Detected (NOT DETECT); Streptococcus anginosus group Not Detected (NOT DETECT); Streptococcus pneumoniae Not Detected (NOT DETECT); Streptococcus pyogenes Not Detected (NOT DETECT); Streptococcus species Not Detected (NOT DETECT)
[2024-06-13] MEDS: allopurinol 300 mg Tablet 150 MG PO (05:13)
[2024-06-13 06:36] LABS: Basophils % 0.1 %; Hematocrit 31.9 % (37-53); Lymphocytes # 3.9 10^3/uL (0.8-4.8); Lymphocytes % 12.3 %; Mean Corpuscular Hemoglobin 30.8 pg (27-33); Mean Corpuscular Volume 96.4 fl (82-101); Mean Platelet Volume 9.5 fL (7.4-10.4); Monocytes # 0.5 10^3/uL (0.2-0.9); Monocytes % 1.7 %; Neutrophils # 26.51 10^3/uL (1.8-7.7); Neutrophils % 84.7 %; Nucleated Red Blood Cells % 0 %; Platelet Count 323 10^3/cmm (157-399); Red Blood Count 3.31 10^6/uL (3.85-5.65); Red Cell Distribution Width 14.8 % (12.1-15.1)
[2024-06-13 06:46] LABS: Glucose Point of Care 215 mg/dL (70-110)
[2024-06-13 07:02] LABS: Anion Gap 19.8 (5-19); Calcium 8.7 mg/dL (8.5-10.5); Carbon Dioxide 21 mmol/L (22-29); Chloride 99 mmol/L (98-107); Creatinine Clr Calc Pharmacy 14.0606; Glucose 201 mg/dL (65-115); Osmolality Calculated 310 mOsm/kg (285-295); Potassium 5.8 mmol/L (3.5-5.1); Sodium 134 mmol/L (136-145)
[2024-06-13 07:19] LABS: INR 3.69 (0.8-1.2)
[2024-06-13 07:38] LABS: Blood Urea Nitrogen 86 mg/dL (8-23); Slide Review Slide Review Perform; White Blood Count 31.32 10^3/uL (3.29-11.43)
[2024-06-13] MEDS: sennosides-docusate Tablet 1 TAB PO (09:22)
[2024-06-13] MEDS: azithromycin 250 mg Tablet 500 MG PO (09:22)
[2024-06-13] MEDS: dilTIAZem ER (24HR) 240 mg Capsule PO (09:22)
[2024-06-13] MEDS: acetaminophen 500 mg Tablet PO (09:22)
[2024-06-13] MEDS: guaiFENesin 600 mg Tablet 1200 MG PO ×2 (09:22→17:41)
[2024-06-13] MEDS: insulin lispro 100 unit/1 mL SUBCUT ×4 (09:23→22:37)
[2024-06-13] MEDS: cefepime 1,000 mg SDV 1000 MG IVP (09:23)
[2024-06-13 12:31] LABS: Glucose Point of Care 168 mg/dL (70-110)
[2024-06-13 12:43] LABS: Glucose Point of Care 176 mg/dL (70-110)
[2024-06-13 16:54] LABS: Glucose Point of Care 169 mg/dL (70-110)
--- NOTE | 2024-06-13 19:39 | P.PN_ITS ---
Subjective 2 Subjective: He feels overall his breathing is improving. He is having somewhat less phlegm. Dyspnea is gradually improving. He has worked with therapy. Vitals/I&O/Wt Last Vital Signs Temp 97.5 F L 06/13/24 16:00 Pulse 69 06/13/24 16:00 Resp 17 06/13/24 16:00 BP 126/44 06/13/24 16:00 Pulse Ox 93 06/13/24 16:00 O2 Del Method Nasal Cannula 06/13/24 16:00 O2 Flow Rate 3 06/13/24 07:51 06/13/24 06/13/24 06/13/24 06:59 14:59 22:59 Intake Total 690 / 690 330 / 1020 Output Total 300 / 500 400 / 400 Balance -300 / 700 690 / 690 -70 / 620 Weight last 48 hrs Weight 86.863 kg Weight 86.835 kg Physical Exam 2 Const: COMMON NORMALS: patient oriented x3 and alert GENERAL APPEARANCE: c ooperative ORIENTATION/CONSCIOUSNESS: Yes awake HENMT: COMMON NORMALS: oropharynx normal Neck/C-Spine: COMMON NORMALS: no JVD Resp: AUSCULTATION: rhonchi (Improving), no wheezes and diminished lung sounds Cardio: COMMON NORMALS: no JVD, regular rhythm, S1 normal heart sound present, S2 normal heart sound present and No murmurs present (Cardio) RHYTHM: regular rhythm HEART SOUNDS: S1 normal heart sound present and S2 normal heart sound present GI: COMMON NORMALS: Normal to inspection, nondistended, normoactive bowel sounds present, Soft to palpation and non-tender PALPATION: Yes Soft to palpation Extremity: COMMON NORMALS: no joint enlargement and no pedal edema Neuro: COMMON NORMALS: patient oriented x3 and moves all extremities S ENSORIUM/ORIENTATION: Yes alert Skin: COMMON NORMALS: no rashes or lesions noted GENERAL SKIN EXAM: no rashes or lesions noted Urinary Catheter Management: Yu: Cath Placed During This Visit: yes Reason for Continuing Indwelling Catheter: Other Urinary Catheter Date of Insertion: 06/11/24 Urinary Catheter Time of Insertion: 17:39 Data 06/13/24 05:38 06/13/24 05:38 Micro: Microbiology 06/12/24 14:25 Gram Stain - Final Sputum - Expectorated Sputum Sputum Culture - Preliminary 06/13/24 11:15 Blood Culture - Preliminary Blood SPECIMEN COLLECTED 06/13/24 11:13 Blood Culture - Preliminary Blood SPECIMEN COLLECTED A&P Assessment and plan (1) Paroxysmal atrial fibrillation with RVR: (2) Exertional dyspnea: (3) Type 2 diabetes mellitus: Qualifiers: Diabetes mellitus marine oil terminal superintendent insulin use: without marine oil terminal superintendent use Diabetes mellitus complication status: with kidney complications Diabetes mellitus complication detail: with chronic kidney disease Chronic kidney disease stage: stage 4 (severe) Qualified Code(s): E11.22 - Type 2 diabetes mellitus with diabetic chronic kidney disease; N18.4 - Chronic kidney disease, stage 4 (severe) (4) Acute on chronic renal insufficiency: (5) Chronic lymphocytic leukemia: (6) COPD with acute exacerbation: (7) Pneumonia: (8) Compression fx, lumbar spine: Qualifiers: Encounter type: initial encounter Lumbar vertebra fracture level: L2 Qualified Code(s): S32.020A - Wedge compression fracture of second lumbar vertebra, initial encounter for closed fracture Plan Acute on chronic hypoxia: Showing gradual improvement. However, leukocytosis significantly worse today up to 31.3. Reviewed vitals, CBC, INR, BMP, blood culture, sputum culture. Coming down to 3 L nasal cannula. Subjectively showing some improvement. Rhonchi are decreasing. Continue IV steroid but will decrease dose to 20 mg. Continue expectorant therapy with flutter valve, Mucinex. Continue antibiotics with cefepime, azithromycin. Monitor for risk of encephalopathy, QT prolongation. Repeat EKG. Continue mobilization with therapy, consideration of post discharge destination, home versus SNF. Consideration of home health. Discussed with case operator, PT. Severe COPD exacerbation, concomitant atypical pneumonia with bibasilar reticular infiltrates suggesting NSIP. With prior pseudomonal pneumonia, continue cefepime. Monitor for risk of encephalopathy with cefepime. Requesting sputum culture. Discussed with him additional consideration of possible interstitial lung disease. Discussed would benefit from follow-up with pulmonology. Previously has seen a direct care specialist here. He also has underlying diaphragm dysfunction. Possible bacteremia: Gram-positive coccus in 1/4 bottles in blood culture. Identified as Staph epidermidis. Would suspect contamination. Repeat blood culture requested. Pancreatic cyst: No previous history of GI malignancy or pancreatic cyst as per the patient Outpatient MRCP Compression fracture: Continue mobilization with therapy. TLSO brace. Renew morphine for severe breakthrough pain, hydrocodone for moderate pain. Follow-up with orthopedics in office in 2 weeks. Discussed with PT. programming development project manager. Further consideration of post discharge destination, SNF versus return home. Consideration of home health. No signs of cauda equina. MRI. 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 Continue treatment of acute respiratory illness, orthopedic follow-up may be considered after improvement of respiratory issues in case of persistence or worsening symptoms of vertebral compression. Hyperkalemia: Low potassium diet. Recheck level. Supratherapeutic INR: Reviewed INR, 3.7. Warfarin on hold. Recheck INR. Acute on chronic kidney disease, looks dehydrated decreased p.o. intake in last 48 hours, hold diuretics Monitor kidney function correlate with urine output and creatinine Repeat chemistry. Full code A-fib without RVR continue Coumadin and diltiazem. Reviewed INR. Therapeutic. 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 and High MDM includes amount and/or complexity of data reviewed/ordered [ resulted lab(s)/test(s), ordered lab(s)/test(s) and other healthcare professional discussion] and described risk of complication, morbidity or mortality of management as documented Diagnoses Paroxysmal atrial fibrillation with RVR I48.0 Exertional dyspnea R06.09 Type 2 diabetes mellitus with stage 4 chronic kidney disease, without long-term current use of insulin E11.22; N18.4 Diabetes mellitus marine oil terminal superintendent insulin use: without marine oil terminal superintendent use Diabetes mellitus complication status: with kidney complications Diabetes mellitus complication detail: with chronic kidney disease Chronic kidney disease stage: stage 4 (severe) Acute on chronic renal insufficiency N28.9; N18.9 Chronic lymphocytic leukemia C91.10 COPD with acute exacerbation J44.1 Pneumonia J18.9 Compression fracture of L2 vertebra, initial encounter S32.020A Encounter type: initial encounter Lumbar vertebra fracture level: L2
--- NOTE | 2024-06-13 19:42 | ECG_ITS ---
[employer] Test Date: 2024-06-14 Pat Name: Jesús Cole Department: Room: 259 Gender: Male Solar Installation Manager: : 1940 Requested By: Aamir Silverio Order Number: [id number] Reading MD: RAAD STANLEY Measurements Intervals [place] Rate: 70 P: 82 ND: 151 QRS: 58 QRSD: 83 T: 71 QT: 384 QTc: 416 Interpretive Statements SINUS RHYTHM WITH OCCASIONAL SUPRAVENTRICULAR PREMATURE COMPLEXES SEPTAL MYOCARDIAL INFARCTION , OF INDETERMINATE AGE [40+ ms Q WAVE IN V1/V2] Compared to ECG 06/11/2024 14:17:19 Myocardial infarct finding now present Electronically Signed On 06-16-2024 16:17:23 [employer] by RAAD STANLEY [email or web address]
[2024-06-13] MEDS: tamsulosin 0.4 mg Capsule PO (20:10)
[2024-06-13 21:08] LABS: Glucose Point of Care 277 mg/dL (70-110)
[2024-06-13] MEDS: methylPREDNISolone sod succ 40 mg/mL INJ 20 MG IVP (23:20)
[2024-06-14] VITALS (11 sets, daily range): BP systolic 92–142; BP diastolic 53–84; PULSE 70–110; RESP 16–20; TEMP 36.4–36.9; O2SAT 91–98
[2024-06-14] MEDS: ipratropium-albuterol 3 mL Neb INHALATION ×4 (02:50→21:02)
[2024-06-14 05:41] LABS: Basophils % 0.1 %; Hematocrit 31.6 % (37-53); Lymphocytes # 3.8 10^3/uL (0.8-4.8); Mean Corpuscular Hemoglobin 30.1 pg (27-33); Mean Corpuscular Volume 94.3 fl (82-101); Mean Platelet Volume 9.5 fL (7.4-10.4); Monocytes # 0.5 10^3/uL (0.2-0.9); Monocytes % 2.3 %; Neutrophils # 18.89 10^3/uL (1.8-7.7); Neutrophils % 80.5 %; Nucleated Red Blood Cells % 0 %; Platelet Count 371 10^3/cmm (157-399); Red Blood Count 3.35 10^6/uL (3.85-5.65); Red Cell Distribution Width 14.8 % (12.1-15.1); White Blood Count 23.45 10^3/uL (3.29-11.43)
[2024-06-14 05:49] LABS: INR 3.28 (0.8-1.2)
[2024-06-14 06:00] LABS: Anion Gap 15.8 (5-19); Calcium 8.9 mg/dL (8.5-10.5); Carbon Dioxide 23 mmol/L (22-29); Chloride 102 mmol/L (98-107); Creatinine Clr Calc Pharmacy 17.1427; Glucose 173 mg/dL (65-115); Osmolality Calculated 312 mOsm/kg (285-295); Potassium 5.8 mmol/L (3.5-5.1); Sodium 135 mmol/L (136-145)
[2024-06-14 06:04] LABS: Blood Urea Nitrogen 92 mg/dL (8-23)
[2024-06-14 06:23] LABS: Glucose Point of Care 188 mg/dL (70-110)
[2024-06-14] MEDS: allopurinol 300 mg Tablet 150 MG PO (06:48)
[2024-06-14] MEDS: methylPREDNISolone sod succ 40 mg/mL INJ 20 MG IVP ×4 (06:48→23:00)
[2024-06-14] MEDS: sennosides-docusate Tablet 1 TAB PO (08:17)
[2024-06-14] MEDS: insulin lispro 100 unit/1 mL SUBCUT ×4 (08:17→20:48)
[2024-06-14] MEDS: guaiFENesin 600 mg Tablet 1200 MG PO ×2 (08:18→17:40)
[2024-06-14] MEDS: azithromycin 250 mg Tablet 500 MG PO (08:18)
[2024-06-14] MEDS: dilTIAZem ER (24HR) 240 mg Capsule PO (08:18)
[2024-06-14] MEDS: cefepime 1,000 mg SDV 1000 MG IVP (10:36)
[2024-06-14 11:50] LABS: Glucose Point of Care 202 mg/dL (70-110)
[2024-06-14] MEDS: warfarin 2 mg Tablet PO (15:47)
[2024-06-14 16:58] LABS: Glucose Point of Care 218 mg/dL (70-110)
[2024-06-14 20:24] LABS: Glucose Point of Care 267 mg/dL (70-110)
--- NOTE | 2024-06-14 20:36 | P.PN_ITS ---
Subjective 2 Subjective: He is gradually improving but still became very dyspneic trying to walk to the bathroom today. They have further discussed with his and he is agreeable to pursue rehabilitation at [facility] given he has had a slow recovery, and his also has been having back problems and will be going for surgery so will not be able to be of assistance to him at home. Vitals/I&O/Wt Last Vital Signs Temp 97.8 F 06/14/24 19:50 Pulse 83 06/14/24 19:50 Resp 18 06/14/24 19:50 BP 142/73 06/14/24 19:50 Pulse Ox 96 06/14/24 19:50 O2 Del Method Nasal Cannula 06/14/24 19:50 O2 Flow Rate 1 06/14/24 19:50 06/14/24 06/14/24 06/14/24 06:59 14:59 22:59 Intake Total 360 / 360 240 / 600 Output Total 250 / 800 Balance -250 / 220 360 / 360 240 / 600 Weight last 48 hrs Weight 87.345 kg Weight 86.863 kg Physical Exam 2 Const: COMMON NORMALS: patient oriented x3 and alert GENERAL APPEARANCE: c ooperative ORIENTATION/CONSCIOUSNESS: Yes awake HENMT: COMMON NORMALS: oropharynx normal Neck/C-Spine: COMMON NORMALS: no JVD Resp: AUSCULTATION: rhonchi (Improving), no wheezes and diminished lung sounds Cardio: COMMON NORMALS: no JVD, regular rhythm, S1 normal heart sound present, S2 normal heart sound present and No murmurs present (Cardio) RHYTHM: regular rhythm HEART SOUNDS: S1 normal heart sound present and S2 normal heart sound present GI: COMMON NORMALS: Normal to inspection, nondistended, normoactive bowel sounds present, Soft to palpation and non-tender PALPATION: Yes Soft to palpation Extremity: COMMON NORMALS: no joint enlargement and no pedal edema Neuro: COMMON NORMALS: patient oriented x3 and moves all extremities S ENSORIUM/ORIENTATION: Yes alert Skin: COMMON NORMALS: no rashes or lesions noted GENERAL SKIN EXAM: no rashes or lesions noted Urinary Catheter Management: Yu: Cath Placed During This Visit: yes Reason for Continuing Indwelling Catheter: Other Urinary Catheter Date of Insertion: 06/11/24 Urinary Catheter Time of Insertion: 17:39 Data 06/14/24 05:14 06/14/24 05:14 Micro: Microbiology 06/11/24 03:20 Blood Culture - Preliminary Blood Staphylococcus epidermidis Corynebacterium species 06/12/24 14:25 Gram Stain - Final Sputum - Expectorated Sputum Sputum Culture - Preliminary Gram Negative Rods 06/13/24 11:15 Blood Culture - Preliminary Blood NEGATIVE TO DATE 06/13/24 11:13 Blood Culture - Preliminary Blood NEGATIVE TO DATE A&P Assessment and plan (1) Paroxysmal atrial fibrillation with RVR: (2) Exertional dyspnea: (3) Type 2 diabetes mellitus: Qualifiers: Diabetes mellitus usp insulin use: without exterminator helper termite use Diabetes mellitus complication status: with kidney complications Diabetes mellitus complication detail: with chronic kidney disease Chronic kidney disease stage: stage 4 (severe) Qualified Code(s): E11.22 - Type 2 diabetes mellitus with diabetic chronic kidney disease; N18.4 - Chronic kidney disease, stage 4 (severe) (4) Acute on chronic renal insufficiency: (5) Chronic lymphocytic leukemia: (6) COPD with acute exacerbation: (7) Pneumonia: (8) Compression fx, lumbar spine: Qualifiers: Encounter type: initial encounter Lumbar vertebra fracture level: L2 Qualified Code(s): S32.020A - Wedge compression fracture of second lumbar vertebra, initial encounter for closed fracture Plan Acute on chronic hypoxia: Becoming severely dyspneic with exertion. At rest has been improving. Decreasing secretions. Became very short of breath going to the bathroom. Reviewed vitals, CBC, INR, BMP, blood culture, sputum culture. Given still significant dyspneic will continue without decreasing IV steroid at 20 mg every 6 hours. Monitor for risk of hyperglycemia, hypertension, gastritis. Reviewed blood glucose. Continue oxygen support. Wean down as tolerating. Rhonchi are decreasing. Continue expectorant therapy with flutter valve, Mucinex. Continue antibiotics with cefepime, azithromycin. Reviewed sputum culture, noted gram-negative rods. Follow-up culture results. Monitor for risk of encephalopathy, QT prolongation. Reviewed repeat EKG. Continue mobilization with therapy, he is agreeable to pursue rehabilitation at SNF. Perforations will need to be resumed on Sunday when case management is back. Severe COPD exacerbation, concomitant atypical pneumonia with bibasilar reticular infiltrates suggesting NSIP. With prior pseudomonal pneumonia, continue cefepime. Monitor for risk of encephalopathy with cefepime. Requesting sputum culture. Supratherapeutic INR, reviewed INR, 2.28. Warfarin has been on hold. He normally alternates 3 and 4 mg at home. Has machine to check INR. Discussed with pharmacist, will give her lower dose today at 2 mg. Recheck INR. Monitor for risk of supratherapeutic INR, risk of bleeding. Additional consideration of possible interstitial lung disease. Discussed would benefit from follow-up with pulmonology. Previously has seen a wood flooring specialist here. He also has underlying diaphragm dysfunction. Possible bacteremia: Reviewed blood culture. Noted contamination with Staph epidermidis, currently bacteria. Repeat blood culture pending. So far negative. Pancreatic cyst: No previous history of GI malignancy or pancreatic cyst as per the patient Outpatient MRCP Compression fracture: Continue mobilization with therapy. TLSO brace. Renew morphine for severe breakthrough pain, hydrocodone for moderate pain. Follow-up with orthopedics in office in 2 weeks. Discussed with PT. manager protein. Further consideration of post discharge destination, SNF versus return home. Consideration of home health. No signs of cauda equina. MRI. 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 Continue treatment of acute respiratory illness, orthopedic follow-up may be considered after improvement of respiratory issues in case of persistence or worsening symptoms of vertebral compression. Hyperkalemia: Low potassium diet. Recheck level. Supratherapeutic INR: Reviewed INR, 3.7. Warfarin on hold. Recheck INR. Acute on chronic kidney disease, looks dehydrated decreased p.o. intake in last 48 hours, hold diuretics Monitor kidney function correlate with urine output and creatinine Repeat chemistry. Full code A-fib without RVR continue Coumadin and diltiazem. Reviewed INR. Therapeutic. 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 and High MDM includes amount and/or complexity of data reviewed/ordered [ resulted lab(s)/test(s), ordered lab(s)/test(s) and other healthcare professional discussion] and described risk of complication, morbidity or mortality of management as documented Diagnoses Paroxysmal atrial fibrillation with RVR I48.0 Exertional dyspnea R06.09 Type 2 diabetes mellitus with stage 4 chronic kidney disease, without long-term current use of insulin E11.22; N18.4 Diabetes mellitus exterminator helper termite insulin use: without exterminator helper termite use Diabetes mellitus complication status: with kidney complications Diabetes mellitus complication detail: with chronic kidney disease Chronic kidney disease stage: stage 4 (severe) Acute on chronic renal insufficiency N28.9; N18.9 Chronic lymphocytic leukemia C91.10 COPD with acute exacerbation J44.1 Pneumonia J18.9 Compression fracture of L2 vertebra, initial encounter S32.020A Encounter type: initial encounter Lumbar vertebra fracture level: L2
[2024-06-14] MEDS: tamsulosin 0.4 mg Capsule PO (20:48)
[2024-06-14] MEDS: HYDROcodone-acetaminophen 5-325 mg Tablet 1 TAB PO (23:03)
[2024-06-15] VITALS (16 sets, daily range): BP systolic 119–174; BP diastolic 51–77; PULSE 71–123; RESP 14–24; TEMP 36.4–37.1; O2SAT 94–97
[2024-06-15] MEDS: ipratropium-albuterol 3 mL Neb INHALATION ×4 (02:42→20:11)
[2024-06-15] MEDS: allopurinol 300 mg Tablet 150 MG PO (05:49)
[2024-06-15] MEDS: methylPREDNISolone sod succ 40 mg/mL INJ 20 MG IVP ×3 (05:50→16:44)
[2024-06-15 06:28] LABS: Glucose Point of Care 208 mg/dL (70-110)
[2024-06-15 08:16] LABS: Basophils % 0.1 %; Hematocrit 33.4 % (37-53); Lymphocytes # 3.9 10^3/uL (0.8-4.8); Lymphocytes % 17.3 %; Mean Corpuscular HGB Conc 32.3 g/dL (30-55); Mean Corpuscular Hemoglobin 30.2 pg (27-33); Mean Corpuscular Volume 93.3 fl (82-101); Mean Platelet Volume 9.6 fL (7.4-10.4); Monocytes # 0.4 10^3/uL (0.2-0.9); Monocytes % 1.7 %; Neutrophils # 17.84 10^3/uL (1.8-7.7); Neutrophils % 79.8 %; Nucleated Red Blood Cells % 0 %; Platelet Count 346 10^3/cmm (157-399); Red Blood Count 3.58 10^6/uL (3.85-5.65); Red Cell Distribution Width 14.9 % (12.1-15.1); White Blood Count 22.35 10^3/uL (3.29-11.43)
[2024-06-15] MEDS: azithromycin 250 mg Tablet 500 MG PO (08:25)
[2024-06-15] MEDS: dilTIAZem ER (24HR) 240 mg Capsule PO (08:25)
[2024-06-15] MEDS: sennosides-docusate Tablet 1 TAB PO (08:25)
[2024-06-15] MEDS: guaiFENesin 600 mg Tablet 1200 MG PO ×2 (08:25→16:44)
[2024-06-15] MEDS: insulin lispro 100 unit/1 mL SUBCUT ×4 (08:26→21:08)
[2024-06-15 08:27] LABS: INR 3.33 (0.8-1.2)
[2024-06-15 08:35] LABS: Calcium 9.4 mg/dL (8.5-10.5); Carbon Dioxide 24 mmol/L (22-29); Chloride 104 mmol/L (98-107); Creatinine Clr Calc Pharmacy 19.8229; Glucose 193 mg/dL (65-115); Osmolality Calculated 322 mOsm/kg (285-295); Sodium 139 mmol/L (136-145)
[2024-06-15 08:40] LABS: Blood Urea Nitrogen 93 mg/dL (8-23)
[2024-06-15] MEDS: dextrose 5%-sod chloride 0.45% 1,000 ML 30 ML IV (09:49)
[2024-06-15] MEDS: cefepime 1,000 mg SDV 1000 MG IVP (09:49)
--- NOTE | 2024-06-15 10:27 | PC.PHAR ---
Laboratory Tests 06/12/24 06/13/24 06/14/24 05:27 05:38 05:14 INR 2.77 H 3.69 H 3.28 H 06/15/24 07:30 INR 3.33 H INR supratherapeutic again today even with reduced dose yesterday. Holding dose today and will recheck INR with am labs.
[2024-06-15 11:41] LABS: Glucose Point of Care 280 mg/dL (70-110)
[2024-06-15 16:46] LABS: Glucose Point of Care 207 mg/dL (70-110)
[2024-06-15] MEDS: tamsulosin 0.4 mg Capsule PO (20:28)
[2024-06-15 21:09] LABS: Glucose Point of Care 304 mg/dL (70-110)
--- NOTE | 2024-06-15 21:32 | P.PN_ITS ---
Subjective 2 Subjective: He is slightly more dyspneic today. But states did get up to walk around with TLSO brace on. Vitals/I&O/Wt Last Vital Signs Temp 97.6 F 06/15/24 20:00 Pulse 82 06/15/24 20:15 Resp 18 06/15/24 20:15 BP 146/76 06/15/24 20:00 Pulse Ox 97 06/15/24 20:15 O2 Del Method Nasal Cannula 06/15/24 20:15 O2 Flow Rate 2 06/15/24 20:33 06/15/24 06/15/24 06/15/24 06:59 14:59 22:59 Intake Total 960 / 960 720 / 1680 Output Total 1000 / 2200 900 / 900 Balance -1000 / -1480 960 / 960 -180 / 780 Weight last 48 hrs Weight 87.362 kg Weight 87.345 kg Physical Exam 2 Const: COMMON NORMALS: patient oriented x3 and alert GENERAL APPEARANCE: c ooperative ORIENTATION/CONSCIOUSNESS: Yes awake HENMT: COMMON NORMALS: oropharynx normal Neck/C-Spine: COMMON NORMALS: no JVD Resp: AUSCULTATION: no rhonchi (Improving), wheezes and diminished lung sounds Cardio: COMMON NORMALS: no JVD, regular rhythm, S1 normal heart sound present, S2 normal heart sound present and No murmurs present (Cardio) RHYTHM: regular rhythm HEART SOUNDS: S1 normal heart sound present and S2 normal heart sound present GI: COMMON NORMALS: Normal to inspection, nondistended, normoactive bowel sounds present, Soft to palpation and non-tender PALPATION: Yes Soft to palpation Extremity: COMMON NORMALS: no joint enlargement and no pedal edema Neuro: COMMON NORMALS: patient oriented x3 and moves all extremities S ENSORIUM/ORIENTATION: Yes alert Skin: COMMON NORMALS: no rashes or lesions noted GENERAL SKIN EXAM: no rashes or lesions noted Urinary Catheter Management: Yu: Cath Placed During This Visit: yes Reason for Continuing Indwelling Catheter: Other Urinary Catheter Date of Insertion: 06/11/24 Urinary Catheter Time of Insertion: 17:39 Data 06/15/24 07:30 06/15/24 07:30 Micro: Microbiology 06/11/24 03:20 Blood Culture - Final Blood Staphylococcus epidermidis Corynebacterium species A&P Assessment and plan (1) Paroxysmal atrial fibrillation with RVR: (2) Exertional dyspnea: (3) Type 2 diabetes mellitus: Qualifiers: Diabetes mellitus [facility] insulin use: without [facility] use Diabetes mellitus complication status: with kidney complications Diabetes mellitus complication detail: with chronic kidney disease Chronic kidney disease stage: stage 4 (severe) Qualified Code(s): E11.22 - Type 2 diabetes mellitus with diabetic chronic kidney disease; N18.4 - Chronic kidney disease, stage 4 (severe) (4) Acute on chronic renal insufficiency: (5) Chronic lymphocytic leukemia: (6) COPD with acute exacerbation: (7) Pneumonia: (8) Compression fx, lumbar spine: Qualifiers: Encounter type: initial encounter Lumbar vertebra fracture level: L2 Qualified Code(s): S32.020A - Wedge compression fracture of second lumbar vertebra, initial encounter for closed fracture Plan Acute on chronic hypoxia: Becoming somewhat more dyspneic today. Diminished air entry, wheezing on exam. Increase steroid back up to 40 mg. Continue DuoNebs, antibiotic. Reviewed vitals, CBC, INR, BMP, blood culture, sputum culture. Noted gram- negative rods in sputum. Follow-up. Given still significant dyspneic will continue without decreasing IV steroid at 20 mg every 6 hours. Monitor for risk of hyperglycemia, hypertension, gastritis. Reviewed blood glucose. Continue oxygen support. Wean down as tolerating. Rhonchi are decreasing. Continue expectorant therapy with flutter valve, Mucinex. Continue antibiotics with cefepime, azithromycin. Reviewed sputum culture, noted gram-negative rods. Follow-up culture results. Monitor for risk of encephalopathy, QT prolongation. Reviewed repeat EKG. Continue mobilization with therapy, he is agreeable to pursue rehabilitation at SNF. Perforations will need to be resumed on Sunday when case management is back. Severe COPD exacerbation, concomitant atypical pneumonia with bibasilar reticular infiltrates suggesting NSIP. With prior pseudomonal pneumonia, continue cefepime. Monitor for risk of encephalopathy with cefepime. Requesting sputum culture. Supratherapeutic INR, reviewed INR, 3.3. As per discussion with pharmacist received small dose of 2 mg yesterday. Today INR 3.3, hold off additional warfarin, recheck INR. Additional consideration of possible interstitial lung disease. Discussed would benefit from follow-up with pulmonology. Previously has seen a order fulfillment specialist here. He also has underlying diaphragm dysfunction. Possible bacteremia: Reviewed blood culture. Noted contamination with Staph epidermidis, currently bacteria. Repeat blood culture pending. So far negative. Pancreatic cyst: No previous history of GI malignancy or pancreatic cyst as per the patient Outpatient MRCP Compression fracture: Continue mobilization with therapy. TLSO brace. Renew morphine for severe breakthrough pain, hydrocodone for moderate pain. Follow-up with orthopedics in office in 2 weeks. Discussed with PT. global sales manager. Further consideration of post discharge destination, SNF versus return home. Consideration of home health. No signs of cauda equina. MRI. 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 Continue treatment of acute respiratory illness, orthopedic follow-up may be considered after improvement of respiratory issues in case of persistence or worsening symptoms of vertebral compression. Hyperkalemia: Low potassium diet. Recheck level. Supratherapeutic INR: Reviewed INR, 3.7. Warfarin on hold. Recheck INR. Acute on chronic kidney disease, looks dehydrated decreased p.o. intake in last 48 hours, hold diuretics Monitor kidney function correlate with urine output and creatinine Repeat chemistry. Full code A-fib without RVR continue Coumadin and diltiazem. Reviewed INR. Therapeutic. 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 and High MDM includes described risk of complication, morbidity or mortality of management as documented Diagnoses Paroxysmal atrial fibrillation with RVR I48.0 Exertional dyspnea R06.09 Type 2 diabetes mellitus with stage 4 chronic kidney disease, without long-term current use of insulin E11.22; N18.4 Diabetes mellitus intermediate card tender insulin use: without intermediate card tender use Diabetes mellitus complication status: with kidney complications Diabetes mellitus complication detail: with chronic kidney disease Chronic kidney disease stage: stage 4 (severe) Acute on chronic renal insufficiency N28.9; N18.9 Chronic lymphocytic leukemia C91.10 COPD with acute exacerbation J44.1 Pneumonia J18.9 Compression fracture of L2 vertebra, initial encounter S32.020A Encounter type: initial encounter Lumbar vertebra fracture level: L2
[2024-06-15] MEDS: methylPREDNISolone sod succ 40 mg/mL INJ IVP (22:13)
[2024-06-16] VITALS (18 sets, daily range): BP systolic 106–154; BP diastolic 52–83; PULSE 76–115; RESP 16–19; TEMP 36.5–36.8; O2SAT 93–98
[2024-06-16 00:32] LABS: Potassium 5.3 mmol/L (3.5-5.1)
[2024-06-16] MEDS: ipratropium-albuterol 3 mL Neb INHALATION ×3 (01:59→14:02)
[2024-06-16] MEDS: methylPREDNISolone sod succ 40 mg/mL INJ IVP ×3 (05:16→18:26)
[2024-06-16] MEDS: allopurinol 300 mg Tablet 150 MG PO (05:16)
[2024-06-16 05:56] LABS: Basophils % 0.1 %; Hematocrit 33.7 % (37-53); Lymphocytes # 4.1 10^3/uL (0.8-4.8); Lymphocytes % 16.9 %; Mean Corpuscular HGB Conc 32.9 g/dL (30-55); Mean Corpuscular Hemoglobin 30.2 pg (27-33); Mean Corpuscular Volume 91.6 fl (82-101); Mean Platelet Volume 9.7 fL (7.4-10.4); Monocytes # 0.5 10^3/uL (0.2-0.9); Neutrophils # 19.47 10^3/uL (1.8-7.7); Neutrophils % 79.9 %; Nucleated Red Blood Cells % 0 %; Platelet Count 310 10^3/cmm (157-399); Red Blood Count 3.68 10^6/uL (3.85-5.65); Red Cell Distribution Width 14.8 % (12.1-15.1); White Blood Count 24.39 10^3/uL (3.29-11.43)
[2024-06-16 06:15] LABS: Anion Gap 17.3 (5-19); Calcium 9.1 mg/dL (8.5-10.5); Carbon Dioxide 21 mmol/L (22-29); Chloride 99 mmol/L (98-107); Creatinine Clr Calc Pharmacy 26.5401; Glucose 234 mg/dL (65-115); Osmolality Calculated 307 mOsm/kg (285-295); Potassium 5.3 mmol/L (3.5-5.1); Sodium 132 mmol/L (136-145)
[2024-06-16 06:17] LABS: Blood Urea Nitrogen 85 mg/dL (8-23)
[2024-06-16 06:32] LABS: Glucose Point of Care 245 mg/dL (70-110)
[2024-06-16 06:33] LABS: INR 3.21 (0.8-1.2)
[2024-06-16] MEDS: azithromycin 250 mg Tablet 500 MG PO (08:47)
[2024-06-16] MEDS: sennosides-docusate Tablet 1 TAB PO (08:47)
[2024-06-16] MEDS: cefepime 1,000 mg SDV 1000 MG IVP (08:47)
[2024-06-16] MEDS: dilTIAZem ER (24HR) 240 mg Capsule PO (08:47)
[2024-06-16] MEDS: guaiFENesin 600 mg Tablet 1200 MG PO ×2 (08:47→18:27)
[2024-06-16] MEDS: insulin lispro 100 unit/1 mL SUBCUT ×4 (08:47→21:21)
--- NOTE | 2024-06-16 09:07 | ECG_ITS ---
[employer] Test Date: 2024-06-16 Pat Name: Jesús Cole Department: Room: 259 Gender: Male Learning And Development Manager: : 1940 Requested By: James Valdez Order Number: [id number] Reading MD: RAAD STANLEY Measurements Intervals [place] Rate: 138 P: 0 FL: 0 QRS: 47 QRSD: 83 T: 76 QT: 289 QTc: 438 Interpretive Statements ATRIAL FIBRILLATION WITH RAPID VENTRICULAR RESPONSE POSSIBLE RIGHT VENTRICULAR CONDUCTION DELAY [RSR (QR) IN V1/V2] ABNORMAL RHYTHM ECG Compared to ECG 06/14/2024 02:57:00 Sinus rhythm no longer present Myocardial infarct finding no longer present Electronically Signed On 06-16-2024 16:07:11 [employer] by RAAD STANLEY [id number]
--- NOTE | 2024-06-16 11:54 | PC.SOCIAL ---
IMM Updated Updated pt & family on IMM. No questions voiced. Provided pt a copy. Initialed, dated, & timed copy in chart.
[2024-06-16 12:07] LABS: Glucose Point of Care 245 mg/dL (70-110)
--- NOTE | 2024-06-16 12:58 | USR_ITS ---
PROCEDURE INFORMATION: Exam: US Duplex Right Lower Extremity Veins, Limited Exam date and time: 06/16/2024 6:06 PM Age: 84 years old Clinical indication: Swelling (edema) of limb; Upper extremity, right TECHNIQUE: Imaging protocol: Real-time duplex ultrasound of the right extremity with 2-D damon scale, color Doppler flow and spectral waveform analysis including responses to compression and other maneuvers (when performed) with image documentation. Limited exam was focused on the right lower extremity veins. COMPARISON: [place] [id number] 01/02/2023 11:40 AM FINDINGS: Right deep veins: Common femoral, femoral, profunda femoral and popliteal veins demonstrate normal compressibility, patency without thrombus. Normal Doppler waveforms. Superficial veins: Greater saphenous vein at the saphenofemoral junction is patent without thrombus. Other veins: Not applicable. Soft tissues: Unremarkable. US/[place] [id number] IMPRESSION: No evidence of deep vein thrombosis.
[2024-06-16] MEDS: sodium polystyrene sulfonate 15 gm/60 mL Btl 30 GM PO (13:39)
[2024-06-16] MEDS: metoprolol tartrate 50 mg Tablet PO ×2 (13:39→21:21)
[2024-06-16] MEDS: sodium chloride 0.9% 1,000 ML 75 ML IV (13:50)
[2024-06-16] MEDS: insulin regular-human 10 UNIT in SYRINGE 1 EACH IVP ×2 (14:06→18:27)
[2024-06-16] MEDS: meropenem 1,000 mg SDV 1000 MG IVP (15:15)
[2024-06-16 16:08] LABS: Calcium 9.2 mg/dL (8.5-10.5); Carbon Dioxide 22 mmol/L (22-29); Chloride 102 mmol/L (98-107); Creatinine Clr Calc Pharmacy 30.3315; Glucose 123 mg/dL (65-115); Osmolality Calculated 307 mOsm/kg (285-295); Sodium 135 mmol/L (136-145)
[2024-06-16 16:16] LABS: Anion Gap 16.2 (5-19); Potassium 5.2 mmol/L (3.5-5.1)
[2024-06-16 16:18] LABS: Blood Urea Nitrogen 84 mg/dL (8-23)
--- NOTE | 2024-06-16 17:05 | P.PN_ITS ---
Subjective 2 Subjective: Hospital course, labs appreciated. Seen with family numbers at bedside. Patient on 1 L saturating more than 95%. Complaining of shortness of breath both at rest on exertion along with cough. States back pain is better. Able to work with physical therapy but complaining of weakness and difficulty in breathing. As per the caregiver patient feeling very weak and shaking while sitting up to edge of bed for meals. Vitals/I&O/Wt Last Vital Signs Temp 97.7 F 06/16/24 15:13 Pulse 104 H 06/16/24 15:13 Resp 17 06/16/24 15:13 BP 154/62 06/16/24 15:13 Pulse Ox 98 06/16/24 15:13 O2 Del Method Nasal Cannula 06/16/24 15:13 O2 Flow Rate 1 06/16/24 15:13 06/16/24 06/16/24 06/16/24 06:59 14:59 22:59 Intake Total 120 / 2160 Output Total 700 / 1900 500 / 500 Balance -580 / 260 -500 / -500 Weight last 48 hrs Weight 88.178 kg Weight 87.362 kg Physical Exam 2 Const: COMMON NORMALS: patient oriented x3 and alert GENERAL APPEARANCE: c ooperative, in distress and anxious ORIENTATION/CONSCIOUSNESS: Yes awake, Yes oriented to person, Yes oriented to place and Yes oriented to time HENMT: COMMON NORMALS: oropharynx normal Neck/C-Spine: COMMON NORMALS: no JVD Resp: AUSCULTATION: no rhonchi (Improving), wheezes and diminished lung sounds Cardio: COMMON NORMALS: no JVD, regular rhythm, S1 normal heart sound present, S2 normal heart sound present and No murmurs present (Cardio) RHYTHM: regular rhythm HEART SOUNDS: S1 normal heart sound present and S2 normal heart sound present GI: COMMON NORMALS: Normal to inspection, nondistended, normoactive bowel sounds present, Soft to palpation and non-tender PALPATION: Yes Soft to palpation Extremity: COMMON NORMALS: no joint enlargement and no pedal edema Neuro: COMMON NORMALS: patient oriented x3 and moves all extremities S ENSORIUM/ORIENTATION: Yes alert, Yes oriented to person, Yes oriented to place and Yes oriented to time Skin: COMMON NORMALS: no rashes or lesions noted GENERAL SKIN EXAM: no rashes or lesions noted Urinary Catheter Management: Yu: Cath Placed During This Visit: yes Reason for Continuing Indwelling Catheter: Other Urinary Catheter Date of Insertion: 06/11/24 Urinary Catheter Time of Insertion: 17:39 Data 06/16/24 05:48 06/16/24 15:14 Micro: Microbiology 06/11/24 03:16 Blood Culture - Final Blood NO GROWTH AFTER 5 DAYS 06/11/24 03:20 Blood Culture - Final Blood Staphylococcus epidermidis Corynebacterium species A&P Assessment and plan (1) Exertional dyspnea: (2) COPD with acute exacerbation: (3) Pneumonia: (4) Acute on chronic renal insufficiency: (5) Paroxysmal atrial fibrillation with RVR: (6) Long-term (current) use of anticoagulants, INR goal 2.0-3.0: (7) Compression fx, lumbar spine: Qualifiers: Encounter type: initial encounter Lumbar vertebra fracture level: L2 Qualified Code(s): S32.020A - Wedge compression fracture of second lumbar vertebra, initial encounter for closed fracture (8) Type 2 diabetes mellitus: Qualifiers: Chronic kidney disease stage: stage 4 (severe) Diabetes mellitus complication detail: with chronic kidney disease Diabetes mellitus complication status: with kidney complications Diabetes mellitus manager long term care insulin use: [facility] snf use Qualified Code(s): E11.22 - Type 2 diabetes mellitus with diabetic chronic kidney disease; N18.4 - Chronic kidney disease, stage 4 (severe) (9) Chronic lymphocytic leukemia: (10) Heart failure with preserved ejection fraction: Qualifiers: Heart failure chronicity: acute on chronic Qualified Code(s): I50.33 - Acute on chronic diastolic (congestive) heart failure (11) Moderate major depression: (12) Supratherapeutic INR: (13) Hyperkalemia: Plan Acute on chronic hypoxia: Becoming somewhat more dyspneic today. Diminished air entry, wheezing on exam. Increase steroid back up to 40 mg. Continue DuoNebs, antibiotic. Reviewed vitals, CBC, INR, BMP, blood culture, sputum culture. Noted gram- negative rods in sputum. Follow-up. Given still significant dyspneic will continue without decreasing IV steroid at 20 mg every 6 hours. Monitor for risk of hyperglycemia, hypertension, gastritis. Reviewed blood glucose. Continue oxygen support. Wean down as tolerating. Rhonchi are decreasing. Continue expectorant therapy with flutter valve, Mucinex. Continue antibiotics with cefepime, azithromycin. Reviewed sputum culture, noted gram-negative rods. Follow-up culture results. Monitor for risk of encephalopathy, QT prolongation. Reviewed repeat EKG. Continue mobilization with therapy, he is agreeable to pursue rehabilitation at SNF. Perforations will need to be resumed on Sunday when case management is back. Severe COPD exacerbation, concomitant atypical pneumonia with bibasilar reticular infiltrates suggesting NSIP. With prior pseudomonal pneumonia, continue cefepime. Monitor for risk of encephalopathy with cefepime. Requesting sputum culture. Supratherapeutic INR, reviewed INR, 3.3. As per discussion with pharmacist received small dose of 2 mg yesterday. Today INR 3.3, hold off additional warfarin, recheck INR. Additional consideration of possible interstitial lung disease. Discussed would benefit from follow-up with pulmonology. Previously has seen a direct marketing specialist here. He also has underlying diaphragm dysfunction. Possible bacteremia: Reviewed blood culture. Noted contamination with Staph epidermidis, currently bacteria. Repeat blood culture pending. So far negative. Pancreatic cyst: No previous history of GI malignancy or pancreatic cyst as per the patient Outpatient MRCP Compression fracture: Continue mobilization with therapy. TLSO brace. Renew morphine for severe breakthrough pain, hydrocodone for moderate pain. Follow-up with orthopedics in office in 2 weeks. Discussed with PT. field case manager. Further consideration of post discharge destination, SNF versus return home. Consideration of home health. No signs of cauda equina. MRI. 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 Continue treatment of acute respiratory illness, orthopedic follow-up may be considered after improvement of respiratory issues in case of persistence or worsening symptoms of vertebral compression. Hyperkalemia: Low potassium diet. Recheck level. Supratherapeutic INR: Reviewed INR, 3.7. Warfarin on hold. Recheck INR. Acute on chronic kidney disease, looks dehydrated decreased p.o. intake in last 48 hours, hold diuretics Monitor kidney function correlate with urine output and creatinine Repeat chemistry. Full code A-fib without RVR continue Coumadin and diltiazem. Reviewed INR. Therapeutic. BPH: Continue tamsulosin Consistent carb diet with sliding scale Plan for the day: Continues to have significant shortness of breath on minimal exertion. Though saturation has remained stable on 1 L of oxygen supplementation. As per the family member this has been ongoing for last few months. Found to have RVR earlier today morning on exertion with heart rate going up to 130s. Continue with home dose of Cardizem. Add metoprolol 50 mg twice daily. Monitor blood pressures with goal of more than 65 of mean with less than systolic 140 mmHg. Add Pulmicort twice daily. Switch to ipratropium, Xopenex every 6 hours. Wean Solu-Medrol to 40 mg Q12 hourly. Appreciate CT chest done earlier in the admission. Appreciate modified barium swallow. Check chest x-ray, ABG, proBNP, repeat D-dimer, procalcitonin, sputum PCP PCR, fungitell, LDH, histoplasma urine antigen, coccidiomycosis. Check ESR, CRP. Cannot rule out cardiac etiology. Check troponin cycle. Limited echocardiogram for EF. Patient does have CLL, hyperkalemia, worsening renal functions more than baseline, elevated BUN. Check CPK, uric acid to rule out tumor lysis syndrome though unlikely. Cannot rule out in setting of anxiety. Restart home Sovah Celexa. Start on Xanax 0.5 every 8 hourly. Treat with D10 along with 10 units of insulin, Kayexalate for hyperkalemia. Repeat potassium level in evening. Given worsening renal functions with BUN start on gentle IV hydration with normal saline at 50 cc/h. Stop D5 half NS. Monitor sodium levels. Check MRSA swab. Appreciate old sputum cultures growing Pseudomonas and Achromobacter. Pseudomonas susceptible to Zosyn though Achromobacter does not. Switch to meropenem. Start on linezolid. If MRSA swab negative will discontinue linezolid. Staphylococcus epidermidis bacteremia. Most likely is a contaminant. Repeat blood culture from 06/13 so far negative. Monitor INR Attestations 2 Medical Necessity Statement*: Requires further hospitalization for management of shortness of breath on exertion in setting of COPD exacerbation, pneumonia while cardiac etiology is ruled out, ZONIA on CKD, hyperkalemia, lumbar compression fracture Diagnoses Exertional dyspnea R06.09 COPD with acute exacerbation J44.1 Pneumonia J18.9 Acute on chronic renal insufficiency N28.9; N18.9 Paroxysmal atrial fibrillation with RVR I48.0 Long-term (current) use of anticoagulants, INR goal 2.0-3.0 Z79.01 Compression fracture of L2 vertebra, initial encounter S32.020A Encounter type: initial encounter Lumbar vertebra fracture level: L2 Type 2 diabetes mellitus with stage 4 chronic kidney disease, without long-term current use of insulin E11.22; N18.4 Chronic kidney disease stage: stage 4 (severe) Diabetes mellitus complication detail: with chronic kidney disease Diabetes mellitus complication status: with kidney complications Diabetes mellitus manager long term care insulin use: without manager long term care use Chronic lymphocytic leukemia C91.10 Acute on chronic heart failure with preserved ejection fraction I50.33 Heart failure chronicity: acute on chronic Moderate major depression F32.1 Supratherapeutic INR R79.1 Hyperkalemia E87.5
--- NOTE | 2024-06-16 17:10 | PC.RESP ---
sputum collected and sent to lab 06/16/24 @ 4901.
[2024-06-16 17:14] LABS: Lactate Dehydrogenase 239 U/L (135-225)
[2024-06-16 17:39] LABS: ABG PCO2 35.3 mmHg (35-45); ABG PH Result 7.43 (7.35-7.45); Alveolar-Arterial Oxygen Gradi 10.4 mmHg (5-10); Base Excess ABG -0.4 mmol/L (-2.0-2.0); Blood Gas Allen Test Pos; Blood Gas Operator Identificat WALCI; Blood Gas Sample Site Radial, left; Blood Gas Sample Type Arterial; Carboxyhemoglobin 0.8 %THgb (0.4-20.1); HCO3 ABG 23.5 mmol/L (22-26); HGB O2 Sat 94.2 % (95-100); Ionized Calcium Level - ABG 1.3 mmol/L (1.1-1.4); Methemoglobin 1.1 % (0.4-1.5); Oxygen Device NC; PO2 FiO2 Ratio Arterial Blood 264; Potassium Level - ABG 4.7 mmol/L (3.5-5.0); Total Hemoglobin 11.4 g/dL (14-18)
--- NOTE | 2024-06-16 17:43 | XRR_ITS ---
PROCEDURE INFORMATION: Exam: XR Chest Exam date and time: 06/16/2024 6:22 PM Age: 84 years old Clinical indication: Shortness of breath; Additional info: SOB TECHNIQUE: Imaging protocol: Radiologic exam of the chest. Views: 1 view. COMPARISON: CR (CHEST, ) 06/11/2024 2:51 AM FINDINGS: Tubes, catheters and devices: Plate and screws overlie the midline lower cervical spine. Lungs: Bilateral pulmonary linear interstitial opacities identified within lower lungs. The pulmonary opacities are most prominent within the lower left lung. Improvement of right-sided lower lung opacities is demonstrated. Linear density identified within bilateral lungs. Pulmonary emphysema identified within the lungs. Pleural spaces: No pleural effusion. No pneumothorax. Heart/Mediastinum: Mediastinum and codey appear unremarkable. Vasculature: Mild atherosclerotic calcification demonstrated within the aorta. Bones/joints: Diffusely decreased bone density. Generalized bony degenerative changes. XR/XR chest 1V portable [id number] IMPRESSION: 1. Pulmonary atelectasis or acute infiltrates within lower chest bilaterally. 2. Linear bilateral chest pulmonary atelectasis, or scarring. 3. Pulmonary emphysema.
--- NOTE | 2024-06-16 17:43 | ECG_ITS ---
[email or web address] Test Date: 2024-06-16 Pat Name: Jesús Cole Department: Room: 259 Gender: Male Keyboard Specialist: : 1940 Requested By: James Valdez Order Number: [id number] Gloria MD: Rudi Briscoe M.D. Measurements Intervals [place] Rate: 81 P: 71 IL: 144 QRS: 34 QRSD: 89 T: 71 QT: 371 QTc: 433 Interpretive Statements SINUS RHYTHM LOW QRS VOLTAGE IN PRECORDIAL LEADS [QRS DEFLECTION < 1.0 mV IN CHEST LEADS] Compared to ECG 06/16/2024 09:07:26 Low QRS voltage now present Atrial fibrillation no longer present Electronically Signed On 06-18-2024 01:02:56 PRIVATE BRANCH EXCHANGE SERVICE ADVISER by Rudi Briscoe M.D. [id number]
--- NOTE | 2024-06-16 17:50 | USCV_ITS ---
Jesús Cole Age: 84 Gender: M : 1940 Exam Date: 06/16/2024 23:02 Ordering Phys: James Valdze MD Technologist: JUSTYNA Exam Location[place] [facility] [place] Indication: chf, history of COPD, chronic hypoxemia, O2- dependent 2L, history of atrial fibrillation BP: 154 / 62 HR: 101 Rhythm: Atrial fibrillation and erratic rhythm Technical Quality: Adequate MEASUREMENTS (Male / Female) Normal Values 2D ECHO LV Diastolic Diameter PLAX 3.3 cm 4.2 - 5.9 / 3.9 - 5.3 cm IVS Diastolic Thickness 1.5 cm 0.6 - 1.0 / 0.6 - 0.9 cm IVS Systolic Thickness 1.8 cm LVPW Diastolic Thickness 1.4 cm 0.6 - 1.0 / 0.6 - 0.9 cm LVPW Systolic Thickness 1.8 cm LVOT Diameter 1.9 cm LV Ejection Fraction 2D Teich 64.3 % LV Ejection Fraction MOD 4C 67.5 % LV Ejection Fraction MOD 2C 54.3 % LV Ejection Fraction 2C AL 53.5 % LA Diameter 4.1 cm Aorta at Sinotubular Diameter 3.2 cm IVC Diameter 2.3 cm M-MODE LA Ao Ratio MM 1.2 AV Cusp Separation MM 0.9 cm DOPPLER AV Peak Velocity 230.0 cm/s LVOT Peak Velocity 93.0 cm/s AV Area Cont Eq vti 1.5 cm squared AV Area Cont Eq pk 1.1 cm squared MV Peak Velocity 103.0 cm/s MV Area PHT 3.6 cm squared Mitral E to A Ratio 0.0 TV Peak Velocity 249.5 cm/s TR Peak Velocity 261.0 cm/s TR Peak Gradient 27.2 mmHg TV Peak E Velocity 52.0 cm/s PV Peak Velocity 126.0 cm/s FINDINGS Left Ventricle Normal LV size and ejection fraction of 64%.no regional wall motion abnormalities. Right Ventricle The right ventricle is normal in size and function. Right Atrium The right atrium is normal in size. Left Atrium The left atrium is normal in size. Mitral Valve Trace to mild mitral valve regurgitation. Aortic Valve Mild to moderate calcification of aortic valve. Features of aortic valve sclerosis with a peak velocity of 2.3 m/s Tricuspid Valve Trace tricuspid valve regurgitation. Estimated pulmonary artery peak systolic pressure 30 mmHg Pulmonic Valve Pulmonic valve not well visualized. Pericardium Normal pericardium without effusion. Aorta Normal ascending aorta dimension. IVC Not well-visualized CONCLUSIONS Normal LV size and ejection fraction of 64%. No regional wall motion abnormalities. Mild to moderate calcification of aortic valve. Features of aortic valve sclerosis with a peak velocity of 2.3 m/s Trace tricuspid valve regurgitation. Estimated pulmonary artery peak systolic pressure 30 mmHg There is no pericardial effusion. There are no intracardiac masses. Compared to the study from 12/29/2023, there may not be significant change Dr Rudi Briscoe MD FAC (Electronically Signed) Final Date: 17 June 2024 07:21 S
[2024-06-16 17:53] LABS: Glucose Point of Care 171 mg/dL (70-110)
[2024-06-16] MEDS: dextrose 10% 250 ML 1000 ML IV (18:27)
[2024-06-16 19:31] LABS: Erythrocyte Sedimentation Rate 12 mm/hr (0-10)
[2024-06-16 19:37] LABS: D Dimer 2.71 ug/mLFEU (0-0.59)
[2024-06-16 19:42] LABS: Troponin(5th) Baseline 22 ng/L (0-15)
[2024-06-16 20:29] LABS: C Reactive Protein 5.4 mg/L (0.0-4.9); Creatine Phosphokinase 35 U/L (39-308); NT Pro B Type Natriuretic Pept 3507 pg/mL (0-450); Uric Acid 5.1 mg/dL (3.4-7.0)
[2024-06-16] MEDS: budesonide 0.5 mg/2 mL Neb INHALATION (20:29)
[2024-06-16] MEDS: ipratropium 0.5 mg/2.5 mL Neb INHALATION (20:29)
[2024-06-16] MEDS: levalbuterol 0.63 mg/3 mL Neb INHALATION (20:30)
[2024-06-16 20:39] LABS: MRSA PCR OZH (swab) NOT DETECTED (Negative)
--- NOTE | 2024-06-16 20:48 | ECG_ITS ---
[facility] Test Date: 2024-06-16 Pat Name: Jesús Cole Department: Room: 259 Gender: Male Insurance Billing Clerk: : 1940 Requested By: James Valdez Order Number: [id number] Gloria MD: Rudi Briscoe M.D. Measurements Intervals [place] Rate: 99 P: 0 MA: 0 QRS: 59 QRSD: 84 T: 63 QT: 344 QTc: 443 Interpretive Statements ATRIAL FIBRILLATION NONSPECIFIC T-WAVE ABNORMALITY ABNORMAL RHYTHM ECG Compared to ECG 06/16/2024 18:01:58 T-wave abnormality now present Sinus rhythm no longer present Electronically Signed On 06-18-2024 01:09:18 RACECAR DRIVER by Rudi Briscoe M.D. [id number]
[2024-06-16 21:16] LABS: Glucose Point of Care 187 mg/dL (70-110)
[2024-06-16] MEDS: tamsulosin 0.4 mg Capsule PO (21:21)
[2024-06-16] MEDS: ALPRAZolam 0.5 mg Tablet PO (21:21)
[2024-06-16 22:05] LABS: Troponin 5 2HR 22.15 ng/L (0-15); Troponin 5 2HR Delta 0.15 ABS# (0-10)
[2024-06-16] MEDS: HYDROcodone-acetaminophen 5-325 mg Tablet 1 TAB PO (23:41)
--- NOTE | 2024-06-16 23:43 | ECG_ITS ---
[facility] Test Date: 2024-06-17 Pat Name: Jesús Cole Department: Room: 259 Gender: Male Lumber Sales Supervisor: : 1940 Requested By: James Valdez Order Number: [id number] Gloria MD: Rudi Briscoe M.D. Measurements Intervals [place] Rate: 103 P: 0 DC: 0 QRS: 44 QRSD: 90 T: 70 QT: 331 QTc: 435 Interpretive Statements ATRIAL FIBRILLATION WITH RAPID VENTRICULAR RESPONSE POSSIBLE RIGHT VENTRICULAR CONDUCTION DELAY [RSR (QR) IN V1/V2] ABNORMAL RHYTHM ECG Compared to ECG 06/16/2024 20:48:01 T-wave abnormality no longer present Electronically Signed On 06-18-2024 01:09:35 POWER PLANT OPERATIONS MANAGER by Rudi Briscoe M.D. [id number]
[2024-06-17] VITALS (14 sets, daily range): BP systolic 127–176; BP diastolic 69–92; PULSE 81–103; RESP 15–20; TEMP 36.3–36.9; O2SAT 94–98
[2024-06-17 00:58] LABS: Basophils # 0.1 10^3/uL (0.0-0.1); Basophils % 0.2 %; Hematocrit 31.7 % (37-53); Lymphocytes # 4.7 10^3/uL (0.8-4.8); Lymphocytes % 15.6 %; Mean Corpuscular HGB Conc 32.8 g/dL (30-55); Mean Corpuscular Hemoglobin 30.1 pg (27-33); Mean Corpuscular Volume 91.9 fl (82-101); Mean Platelet Volume 9.4 fL (7.4-10.4); Monocytes # 0.8 10^3/uL (0.2-0.9); Monocytes % 2.5 %; Neutrophils # 24.03 10^3/uL (1.8-7.7); Neutrophils % 80.5 %; Nucleated Red Blood Cells % 0 %; Platelet Count 311 10^3/cmm (157-399); Red Blood Count 3.45 10^6/uL (3.85-5.65); White Blood Count 29.83 10^3/uL (3.29-11.43)
[2024-06-17 01:10] LABS: INR 2.66 (0.8-1.2)
[2024-06-17 01:16] LABS: Alanine Aminotransferase 68 U/L (0-41); Albumin Level 3.1 g/dL (3.5-5.2); Alkaline Phosphatase 92 U/L (40-130); Anion Gap 13.3 (5-19); Aspartate Amino Transferase 32 U/L (0-40); Blood Urea Nitrogen 78 mg/dL (8-23); Carbon Dioxide 25 mmol/L (22-29); Chloride 102 mmol/L (98-107); Glucose 135 mg/dL (65-115); Osmolality Calculated 305 mOsm/kg (285-295); Potassium 5.3 mmol/L (3.5-5.1); Sodium 135 mmol/L (136-145); Total Bilirubin 0.3 mg/dL (0.15-1.2); Total Protein 5.1 g/dL (6.6-8.7)
[2024-06-17 01:17] LABS: Troponin 5 6HR 21.47 ng/L (0-15)
[2024-06-17 01:23] LABS: Troponin 5 6HR Delta -0.53 ng/L (0-12)
[2024-06-17] MEDS: levalbuterol 0.63 mg/3 mL Neb INHALATION ×4 (02:44→20:44)
[2024-06-17] MEDS: ipratropium 0.5 mg/2.5 mL Neb INHALATION ×4 (02:44→20:44)
[2024-06-17] MEDS: meropenem 1,000 mg SDV 1000 MG IVP ×2 (03:10→15:23)
[2024-06-17] MEDS: methylPREDNISolone sod succ 40 mg/mL INJ IVP ×2 (05:40→17:32)
[2024-06-17] MEDS: allopurinol 300 mg Tablet 150 MG PO (05:40)
[2024-06-17 06:27] LABS: Glucose Point of Care 226 mg/dL (70-110)
[2024-06-17] MEDS: budesonide 0.5 mg/2 mL Neb INHALATION ×2 (07:40→20:44)
[2024-06-17] MEDS: guaiFENesin 600 mg Tablet 1200 MG PO ×2 (07:57→17:32)
[2024-06-17] MEDS: ALPRAZolam 0.5 mg Tablet PO ×3 (07:57→20:29)
[2024-06-17] MEDS: insulin lispro 100 unit/1 mL SUBCUT ×4 (07:57→21:21)
[2024-06-17] MEDS: dilTIAZem ER (24HR) 240 mg Capsule PO (07:58)
[2024-06-17] MEDS: azithromycin 250 mg Tablet 500 MG PO (07:58)
[2024-06-17] MEDS: citalopram 20 mg Tablet 40 MG PO (07:58)
[2024-06-17] MEDS: sennosides-docusate Tablet 1 TAB PO (07:58)
[2024-06-17] MEDS: metoprolol tartrate 50 mg Tablet PO ×2 (07:58→20:29)
[2024-06-17] MEDS: dextrose 10% 250 ML 1000 ML IV (09:11)
[2024-06-17] MEDS: sodium polystyrene sulfonate 15 gm/60 mL Btl PO (09:11)
[2024-06-17] MEDS: insulin regular-human 10 UNIT in SYRINGE 1 EACH 250 UNIT IVP (09:11)
[2024-06-17 09:36] LABS: Glucose Point of Care 364 mg/dL (70-110)
[2024-06-17 12:12] LABS: Glucose Point of Care 187 mg/dL (70-110)
[2024-06-17] MEDS: warfarin 2 mg Tablet PO (15:23)
[2024-06-17 15:40] LABS: Blood Urea Nitrogen 77 mg/dL (8-23); Calcium 9.1 mg/dL (8.5-10.5); Carbon Dioxide 23 mmol/L (22-29); Chloride 101 mmol/L (98-107); Creatinine Clr Calc Pharmacy 32.3086; Glucose 189 mg/dL (65-115); Osmolality Calculated 304 mOsm/kg (285-295); Sodium 133 mmol/L (136-145)
[2024-06-17 16:48] LABS: Glucose Point of Care 190 mg/dL (70-110)
--- NOTE | 2024-06-17 17:53 | P.PN_ITS ---
Subjective 2 Subjective: No acute events overnight. Patient worked well with physical therapy. As per the physical therapist did get mildly winded but was able to maintain his saturations while working with physical therapy and walked up to 100 feet. Saturating well more than 95% on 1 to 2 L of oxygen supplementation. Still complaining of mild subjective difficulty breathing. Has remained hemodynamically stable and afebrile. Heart rate stable. Vitals/I&O/Wt Last Vital Signs Temp 98.4 F 06/17/24 15:01 Pulse 84 06/17/24 15:01 Resp 15 06/17/24 15:01 BP 139/83 06/17/24 15:01 Pulse Ox 98 06/17/24 15:01 O2 Del Method Nasal Cannula 06/17/24 15:01 O2 Flow Rate 2 06/17/24 13:22 06/17/24 06/17/24 06/17/24 06:59 14:59 22:59 Intake Total 1120 / 3310.2 490.1 / 490.1 360 / 850.1 Output Total 650 / 1750 600 / 600 300 / 900 Balance 470 / 1560.2 -109.9 / -109.9 60 / -49.9 Weight last 48 hrs Weight 91.036 kg Weight 88.178 kg Physical Exam 2 Const: COMMON NORMALS: patient oriented x3 and alert GENERAL APPEARANCE: c ooperative, in distress and anxious ORIENTATION/CONSCIOUSNESS: Yes awake, Yes oriented to person, Yes oriented to place and Yes oriented to time HENMT: COMMON NORMALS: oropharynx normal Neck/C-Spine: COMMON NORMALS: no JVD Resp: AUSCULTATION: no rhonchi (Improving), wheezes and diminished lung sounds Cardio: COMMON NORMALS: no JVD, regular rhythm, S1 normal heart sound present, S2 normal heart sound present and No murmurs present (Cardio) RHYTHM: regular rhythm HEART SOUNDS: S1 normal heart sound present and S2 normal heart sound present GI: COMMON NORMALS: Normal to inspection, nondistended, normoactive bowel sounds present, Soft to palpation and non-tender PALPATION: Yes Soft to palpation Extremity: COMMON NORMALS: no joint enlargement and no pedal edema Neuro: COMMON NORMALS: patient oriented x3 and moves all extremities S ENSORIUM/ORIENTATION: Yes alert, Yes oriented to person, Yes oriented to place and Yes oriented to time Skin: COMMON NORMALS: no rashes or lesions noted GENERAL SKIN EXAM: no rashes or lesions noted Urinary Catheter Management: Yu: Cath Placed During This Visit: yes Reason for Continuing Indwelling Catheter: Other Urinary Catheter Date of Insertion: 06/11/24 Urinary Catheter Time of Insertion: 17:39 Data 06/17/24 00:42 06/17/24 15:16 Micro: Microbiology 06/16/24 17:05 Gram Stain - Final Sputum - Expectorated Sputum Sputum Culture - Preliminary A&P Assessment and plan (1) Exertional dyspnea: (2) COPD with acute exacerbation: (3) Pneumonia: (4) Acute on chronic renal insufficiency: (5) Paroxysmal atrial fibrillation with RVR: (6) Long-term (current) use of anticoagulants, INR goal 2.0-3.0: (7) Compression fx, lumbar spine: Qualifiers: Encounter type: initial encounter Lumbar vertebra fracture level: L2 Qualified Code(s): S32.020A - Wedge compression fracture of second lumbar vertebra, initial encounter for closed fracture (8) Type 2 diabetes mellitus: Qualifiers: Diabetes mellitus watermelon inspector insulin use: without watermelon inspector use Diabetes mellitus complication status: with kidney complications Diabetes mellitus complication detail: with chronic kidney disease Chronic kidney disease stage: stage 4 (severe) Qualified Code(s): E11.22 - Type 2 diabetes mellitus with diabetic chronic kidney disease; N18.4 - Chronic kidney disease, stage 4 (severe) (9) Chronic lymphocytic leukemia: (10) Heart failure with preserved ejection fraction: Qualifiers: Heart failure chronicity: acute on chronic Qualified Code(s): I50.33 - Acute on chronic diastolic (congestive) heart failure (11) Moderate major depression: (12) Supratherapeutic INR: (13) Hyperkalemia: Plan Acute on chronic hypoxia: Becoming somewhat more dyspneic today. Diminished air entry, wheezing on exam. Increase steroid back up to 40 mg. Continue DuoNebs, antibiotic. Reviewed vitals, CBC, INR, BMP, blood culture, sputum culture. Noted gram- negative rods in sputum. Follow-up. Given still significant dyspneic will continue without decreasing IV steroid at 20 mg every 6 hours. Monitor for risk of hyperglycemia, hypertension, gastritis. Reviewed blood glucose. Continue oxygen support. Wean down as tolerating. Rhonchi are decreasing. Continue expectorant therapy with flutter valve, Mucinex. Continue antibiotics with cefepime, azithromycin. Reviewed sputum culture, noted gram-negative rods. Follow-up culture results. Monitor for risk of encephalopathy, QT prolongation. Reviewed repeat EKG. Continue mobilization with therapy, he is agreeable to pursue rehabilitation at SNF. Perforations will need to be resumed on Sunday when case management is back. Severe COPD exacerbation, concomitant atypical pneumonia with bibasilar reticular infiltrates suggesting NSIP. With prior pseudomonal pneumonia, continue cefepime. Monitor for risk of encephalopathy with cefepime. Requesting sputum culture. Supratherapeutic INR, reviewed INR, 3.3. As per discussion with pharmacist received small dose of 2 mg yesterday. Today INR 3.3, hold off additional warfarin, recheck INR. Additional consideration of possible interstitial lung disease. Discussed would benefit from follow-up with pulmonology. Previously has seen a client technologies specialist here. He also has underlying diaphragm dysfunction. Possible bacteremia: Reviewed blood culture. Noted contamination with Staph epidermidis, currently bacteria. Repeat blood culture pending. So far negative. Pancreatic cyst: No previous history of GI malignancy or pancreatic cyst as per the patient Outpatient MRCP Compression fracture: Continue mobilization with therapy. TLSO brace. Renew morphine for severe breakthrough pain, hydrocodone for moderate pain. Follow-up with orthopedics in office in 2 weeks. Discussed with PT. comsec manager. Further consideration of post discharge destination, SNF versus return home. Consideration of home health. No signs of cauda equina. MRI. 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 Continue treatment of acute respiratory illness, orthopedic follow-up may be considered after improvement of respiratory issues in case of persistence or worsening symptoms of vertebral compression. Hyperkalemia: Low potassium diet. Recheck level. Supratherapeutic INR: Reviewed INR, 3.7. Warfarin on hold. Recheck INR. Acute on chronic kidney disease, looks dehydrated decreased p.o. intake in last 48 hours, hold diuretics Monitor kidney function correlate with urine output and creatinine Repeat chemistry. Full code A-fib without RVR continue Coumadin and diltiazem. Reviewed INR. Therapeutic. BPH: Continue tamsulosin Consistent carb diet with sliding scale Plan for the day: Patient has remained stable from respiratory standpoint. Saturating well both at rest on exertion while working with physical therapy. Appreciate chest x-ray, barium swallow, proBNP, repeat D-dimer, procalcitonin. Will follow-up other studies including sputum culture. Original sputum cultures taken growing gram-negative rods. Awaiting sensitivities and speciation. Continue with meropenem for now. Stop azithromycin as has been continued for over 6 days now. Continue with antianxiety medications. Repeat Kayexalate and D10 with 10 units of insulin for hyperkalemia. Repeat BMP later in the day. Continue with Cardizem and metoprolol. Heart rate controlled for now. INR stable. Continue with Pulmicort, ipratropium and Xopenex. Will plan to wean Solu-Medrol further tomorrow. Discharge plan: Plan to discharge in next 24 to 48 hours back to [facility] if remains hemodynamically stable and afebrile. Will try to arrange IV meropenem to finish a 5-day course at [facility]. Attestations 2 Medical Necessity Statement*: Requires further hospitalization for management of dyspnea on exertion, physical deconditioning, hypoxia in setting of pneumonia, A-fib with RVR, hyperkalemia with ZONIA and CKD in a patient with CLL while safe discharge planning is sought Diagnoses Exertional dyspnea R06.09 COPD with acute exacerbation J44.1 Pneumonia J18.9 Acute on chronic renal insufficiency N28.9; N18.9 Paroxysmal atrial fibrillation with RVR I48.0 Long-term (current) use of anticoagulants, INR goal 2.0-3.0 Z79.01 Compression fracture of L2 vertebra, initial encounter S32.020A Encounter type: initial encounter Lumbar vertebra fracture level: L2 Type 2 diabetes mellitus with stage 4 chronic kidney disease, without long-term current use of insulin E11.22; N18.4 Diabetes mellitus watermelon inspector insulin use: without watermelon inspector use Diabetes mellitus complication status: with kidney complications Diabetes mellitus complication detail: with chronic kidney disease Chronic kidney disease stage: stage 4 (severe) Chronic lymphocytic leukemia C91.10 Acute on chronic heart failure with preserved ejection fraction I50.33 Heart failure chronicity: acute on chronic Moderate major depression F32.1 Supratherapeutic INR R79.1 Hyperkalemia E87.5
[2024-06-17] MEDS: lidocaine 2% viscous 15 ML, aluminum-mag hydrox-simethicon 30 ML, sucralfate oral liq 1 GM PO (20:27)
[2024-06-17] MEDS: lactulose oral liq 20 gm/30 mL UDC PO (20:29)
[2024-06-17] MEDS: tamsulosin 0.4 mg Capsule PO (20:30)
[2024-06-17 21:05] LABS: Glucose Point of Care 196 mg/dL (70-110)
[2024-06-18] VITALS (13 sets, daily range): BP systolic 99–146; BP diastolic 66–87; PULSE 74–93; RESP 16–22; TEMP 36.2–36.6; O2SAT 93–99
[2024-06-18] MEDS: ipratropium 0.5 mg/2.5 mL Neb INHALATION ×4 (01:31→20:08)
[2024-06-18] MEDS: levalbuterol 0.63 mg/3 mL Neb INHALATION ×4 (01:31→20:08)
[2024-06-18] MEDS: meropenem 1,000 mg SDV 1000 MG IVP ×2 (03:18→14:36)
[2024-06-18] MEDS: methylPREDNISolone sod succ 40 mg/mL INJ IVP ×2 (05:34→17:23)
[2024-06-18] MEDS: allopurinol 300 mg Tablet 150 MG PO (05:34)
[2024-06-18 06:25] LABS: Glucose Point of Care 216 mg/dL (70-110)
[2024-06-18 06:30] LABS: Basophils % 0.1 %; Hematocrit 33.9 % (37-53); Lymphocytes # 4.9 10^3/uL (0.8-4.8); Lymphocytes % 17.9 %; Mean Corpuscular HGB Conc 32.2 g/dL (30-55); Mean Corpuscular Volume 93.4 fl (82-101); Mean Platelet Volume 9.7 fL (7.4-10.4); Monocytes % 3.7 %; Neutrophils # 21.03 10^3/uL (1.8-7.7); Neutrophils % 76.9 %; Nucleated Red Blood Cells % 0 %; Platelet Count 311 10^3/cmm (157-399); Red Blood Count 3.63 10^6/uL (3.85-5.65); Red Cell Distribution Width 15.1 % (12.1-15.1); White Blood Count 27.33 10^3/uL (3.29-11.43)
[2024-06-18 06:41] LABS: INR 2.14 (0.8-1.2)
[2024-06-18 06:52] LABS: Alanine Aminotransferase 53 U/L (0-41); Alkaline Phosphatase 100 U/L (40-130); Anion Gap 13.7 (5-19); Aspartate Amino Transferase 15 U/L (0-40); Blood Urea Nitrogen 75 mg/dL (8-23); Calcium 8.8 mg/dL (8.5-10.5); Carbon Dioxide 25 mmol/L (22-29); Chloride 105 mmol/L (98-107); Creatinine Clr Calc Pharmacy 36.1827; Glucose 206 mg/dL (65-115); Osmolality Calculated 316 mOsm/kg (285-295); Potassium 4.7 mmol/L (3.5-5.1); Sodium 139 mmol/L (136-145); Total Bilirubin 0.3 mg/dL (0.15-1.2)
[2024-06-18] MEDS: budesonide 0.5 mg/2 mL Neb INHALATION ×2 (07:28→20:08)
[2024-06-18] MEDS: insulin lispro 100 unit/1 mL SUBCUT ×4 (08:08→21:20)
[2024-06-18] MEDS: ALPRAZolam 0.5 mg Tablet PO (08:09)
[2024-06-18] MEDS: dilTIAZem ER (24HR) 240 mg Capsule PO (08:09)
[2024-06-18] MEDS: metoprolol tartrate 50 mg Tablet PO ×2 (08:09→21:20)
[2024-06-18] MEDS: citalopram 20 mg Tablet 40 MG PO (08:09)
[2024-06-18] MEDS: sennosides-docusate Tablet 1 TAB PO (08:09)
[2024-06-18] MEDS: guaiFENesin 600 mg Tablet 1200 MG PO ×2 (08:09→17:23)
[2024-06-18 11:47] LABS: Glucose Point of Care 287 mg/dL (70-110)
--- NOTE | 2024-06-18 12:04 | PC.SOCIAL ---
IMM Update Pg. 2 of IMM updated. Initialed, dated, and timed, copy provided at bedside.
[2024-06-18 16:25] LABS: Glucose Point of Care 273 mg/dL (70-110)
--- NOTE | 2024-06-18 16:53 | P.PN_ITS ---
Subjective 2 Subjective: No acute events overnight. Today patient sitting up in chair with family at bedside. Awake and alert. Saturating well on 1 L. Complaining of shortness of breath with difficulty in catching breath blisters saturating around 90%. Has remained medically stable. Working with physical therapy. Complaining of feeling weak. Requiring up to 2 to 3 L on exertion. As per the nursing staff was sleeping for most of the day yesterday. Vitals/I&O/Wt Last Vital Signs Temp 97.8 F 06/18/24 16:43 Pulse 86 06/18/24 16:43 Resp 16 06/18/24 16:43 BP 136/68 06/18/24 16:43 Pulse Ox 99 06/18/24 16:43 O2 Del Method Nasal Cannula 06/18/24 16:43 O2 Flow Rate 3 06/18/24 13:01 06/18/24 06/18/24 06/18/24 06:59 14:59 22:59 Intake Total 100 / 1070.1 180 / 180 Output Total 400 / 1500 Balance -300 / -429.9 180 / 180 Weight last 48 hrs Weight 92.624 kg Weight 91.036 kg Physical Exam 2 Const: COMMON NORMALS: patient oriented x3 and alert GENERAL APPEARANCE: c ooperative, in distress and anxious ORIENTATION/CONSCIOUSNESS: Yes awake, Yes oriented to person, Yes oriented to place and Yes oriented to time HENMT: COMMON NORMALS: oropharynx normal Neck/C-Spine: COMMON NORMALS: no JVD Resp: AUSCULTATION: no rhonchi (Improving), wheezes and diminished lung sounds Cardio: COMMON NORMALS: no JVD, regular rhythm, S1 normal heart sound present, S2 normal heart sound present and No murmurs present (Cardio) RHYTHM: regular rhythm HEART SOUNDS: S1 normal heart sound present and S2 normal heart sound present GI: COMMON NORMALS: Normal to inspection, nondistended, normoactive bowel sounds present, Soft to palpation and non-tender PALPATION: Yes Soft to palpation Extremity: COMMON NORMALS: no joint enlargement and no pedal edema Neuro: COMMON NORMALS: patient oriented x3 and moves all extremities S ENSORIUM/ORIENTATION: Yes alert, Yes oriented to person, Yes oriented to place and Yes oriented to time Skin: COMMON NORMALS: no rashes or lesions noted GENERAL SKIN EXAM: no rashes or lesions noted Urinary Catheter Management: Yu: Cath Placed During This Visit: yes Reason for Continuing Indwelling Catheter: Acute Urinary Retention or Obstruction Urinary Catheter Date of Insertion: 06/11/24 Urinary Catheter Time of Insertion: 17:39 Data 06/18/24 06:18 06/18/24 06:18 Micro: Microbiology 06/13/24 11:15 Blood Culture - Final Blood NO GROWTH AFTER 5 DAYS 06/13/24 11:13 Blood Culture - Final Blood NO GROWTH AFTER 5 DAYS 06/16/24 17:05 Gram Stain - Final Sputum - Expectorated Sputum Sputum Culture - Preliminary Gram Negative Rods 06/12/24 14:25 Gram Stain - Final Sputum - Expectorated Sputum Sputum Culture - Final Acinetobacter baumannii/haemol A&P Assessment and plan (1) Exertional dyspnea: (2) COPD with acute exacerbation: (3) Pneumonia: (4) Acute on chronic renal insufficiency: (5) Paroxysmal atrial fibrillation with RVR: (6) Long-term (current) use of anticoagulants, INR goal 2.0-3.0: (7) Compression fx, lumbar spine: Qualifiers: Encounter type: initial encounter Lumbar vertebra fracture level: L2 Qualified Code(s): S32.020A - Wedge compression fracture of second lumbar vertebra, initial encounter for closed fracture (8) Type 2 diabetes mellitus: Qualifiers: Chronic kidney disease stage: stage 4 (severe) Diabetes mellitus complication detail: with chronic kidney disease Diabetes mellitus complication status: with kidney complications Diabetes mellitus mcc insulin use: w [facility] machine long goods helper use Qualified Code(s): E11.22 - Type 2 diabetes mellitus with diabetic chronic kidney disease; N18.4 - Chronic kidney disease, stage 4 (severe) (9) Chronic lymphocytic leukemia: (10) Heart failure with preserved ejection fraction: Qualifiers: Heart failure chronicity: acute on chronic Qualified Code(s): I50.33 - Acute on chronic diastolic (congestive) heart failure (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 Appreciate CT chest results. No concerns for congestive heart failure for now. Cannot rule out NSIP. Oxygen supplementation keeping saturation over 90%. Patient continues to have subjective feel of shortness of breath. Could not be in setting of anxiety. MRSA swab negative. Sputum culture growing acitenobacter. Highly resistant. No sensitivities for carbapenems. Will send out. As patient has remained afebrile without change in leukocytosis which is less in setting of CLL for now continue with meropenem. Will try to finish a 7-day course. Follow-up blood work and sputum culture results for histoplasma, coccidiomycosis, PCP. Appreciate LDH to be mildly elevated. Continue Solu-Medrol 40 mg twice daily. Nebulization with ipratropium, Xopenex every 6 hours, Pulmicort twice daily. Patient will most likely need a 7-day course of IV antibiotics. If does not improve he would benefit from follow-up with pulmonary team for possible bronchoscopy to rule out NSIP. Discussed in detail with patient and at bedside. They are both agreeable. Atrial fibrillation: Heart rate better controlled now. Continue with home dose of Cardizem and metoprolol 50 mg twice daily. Anticoagulation with Coumadin. Supratherapeutic INR: Resolving. Target INR 2-3. Continue with current dose of Coumadin. Possible bacteremia: Most likely contaminant. Repeat blood cultures so far negative. R Pancreatic cyst: No previous history of GI malignancy or pancreatic cyst as per the patient Outpatient MRCP Compression fracture: Seen on CT imaging. Appreciate surgical recommendation. T SLO brace. Physical therapy. Encourage patient to continue to mobilize more with physical therapy. Hyperkalemia: Resolved for now. CLL: Follows up with oncology as an outpatient. Leukocytosis have remained stable. No concerns for tumor lysis syndrome for now. Uric acid normal. CKD: Uremia resolving. Baseline creatinine 1.8-2.8. Currently 1.8. Patient euvolemic. Hold off on any further diuresis and fluid for now. Continue other chronic home medications including Celexa, [place]. Full code. Again confirmed with patient and patient spouse at bedside. Coumadin for DVT prophylaxis Carb consistent diet dysphagia level 6. Protonix for PUD prophylaxis. Patient shortness most likely in setting of COPD exacerbation along with pneumonia. Cannot rule out NSIP versus anxiety. Patient would benefit from outpatient follow-up with pulmonology after completion of IV antibiotics. Attestations 2 Medical Necessity Statement*: Requires further hospitalization for management of acute on chronic hypoxia in setting of COPD, acitenobacter pneumonia, CKD, atrial fibrillation, new compression fracture of the spine Diagnoses Exertional dyspnea R06.09 COPD with acute exacerbation J44.1 Pneumonia J18.9 Acute on chronic renal insufficiency N28.9; N18.9 Paroxysmal atrial fibrillation with RVR I48.0 Long-term (current) use of anticoagulants, INR goal 2.0-3.0 Z79.01 Compression fracture of L2 vertebra, initial encounter S32.020A Encounter type: initial encounter Lumbar vertebra fracture level: L2 Type 2 diabetes mellitus with stage 4 chronic kidney disease, without long-term current use of insulin E11.22; N18.4 Chronic kidney disease stage: stage 4 (severe) Diabetes mellitus complication detail: with chronic kidney disease Diabetes mellitus complication status: with kidney complications Diabetes mellitus machine long goods helper insulin use: without mcc use Chronic lymphocytic leukemia C91.10 Acute on chronic heart failure with preserved ejection fraction I50.33 Heart failure chronicity: acute on chronic Moderate major depression F32.1 Supratherapeutic INR R79.1 Hyperkalemia E87.5
[2024-06-18] MEDS: acetaminophen 500 mg Tablet PO (17:23)
[2024-06-18] MEDS: warfarin 2 mg Tablet PO (17:24)
[2024-06-18 20:54] LABS: Glucose Point of Care 332 mg/dL (70-110)
[2024-06-18] MEDS: tamsulosin 0.4 mg Capsule PO (21:20)
[2024-06-19] VITALS (14 sets, daily range): BP systolic 123–154; BP diastolic 61–88; PULSE 65–90; RESP 17–20; TEMP 36.2–36.5; O2SAT 94–100
[2024-06-19] MEDS: levalbuterol 0.63 mg/3 mL Neb INHALATION ×4 (02:54→20:17)
[2024-06-19] MEDS: ipratropium 0.5 mg/2.5 mL Neb INHALATION ×4 (02:54→20:17)
[2024-06-19] MEDS: meropenem 1,000 mg SDV 1000 MG IVP ×2 (03:46→14:37)
[2024-06-19 06:16] LABS: Glucose Point of Care 168 mg/dL (70-110)
[2024-06-19] MEDS: methylPREDNISolone sod succ 40 mg/mL INJ IVP ×2 (06:47→18:01)
[2024-06-19] MEDS: allopurinol 300 mg Tablet 150 MG PO (06:47)
[2024-06-19 08:14] LABS: Basophils # 0.1 10^3/uL (0.0-0.1); Basophils % 0.2 %; Hematocrit 35.4 % (37-53); Lymphocytes # 5.2 10^3/uL (0.8-4.8); Lymphocytes % 15.4 %; Mean Corpuscular HGB Conc 33.3 g/dL (30-55); Mean Corpuscular Hemoglobin 30.5 pg (27-33); Mean Corpuscular Volume 91.5 fl (82-101); Mean Platelet Volume 10.1 fL (7.4-10.4); Monocytes # 1.3 10^3/uL (0.2-0.9); Monocytes % 3.8 %; Neutrophils # 26.37 10^3/uL (1.8-7.7); Neutrophils % 78.7 %; Nucleated Red Blood Cells % 0 %; Platelet Count 299 10^3/cmm (157-399); Red Blood Count 3.87 10^6/uL (3.85-5.65); Red Cell Distribution Width 14.8 % (12.1-15.1)
[2024-06-19] MEDS: budesonide 0.5 mg/2 mL Neb INHALATION ×2 (08:18→20:17)
[2024-06-19] MEDS: sennosides-docusate Tablet 1 TAB PO (08:29)
[2024-06-19] MEDS: citalopram 20 mg Tablet 40 MG PO (08:29)
[2024-06-19] MEDS: dilTIAZem ER (24HR) 240 mg Capsule PO (08:29)
[2024-06-19] MEDS: insulin lispro 100 unit/1 mL SUBCUT ×4 (08:29→21:56)
[2024-06-19] MEDS: guaiFENesin 600 mg Tablet 1200 MG PO ×2 (08:29→18:01)
[2024-06-19] MEDS: metoprolol tartrate 50 mg Tablet PO ×2 (08:31→20:58)
[2024-06-19 08:37] LABS: Alanine Aminotransferase 55 U/L (0-41); Albumin Level 2.9 g/dL (3.5-5.2); Alkaline Phosphatase 104 U/L (40-130); Blood Urea Nitrogen 78 mg/dL (8-23); Calcium 8.4 mg/dL (8.5-10.5); Carbon Dioxide 24 mmol/L (22-29); Chloride 102 mmol/L (98-107); Creatinine Clr Calc Pharmacy 40.6505; Globulin 1.8 g/dL (1.3-4.6); Glucose 169 mg/dL (65-115); Osmolality Calculated 311 mOsm/kg (285-295); Sodium 137 mmol/L (136-145); Total Bilirubin 0.3 mg/dL (0.15-1.2); Total Protein 4.7 g/dL (6.6-8.7)
[2024-06-19 08:40] LABS: Anion Gap 15.9 (5-19); Aspartate Amino Transferase 17 U/L (0-40); Potassium 4.9 mmol/L (3.5-5.1)
[2024-06-19 08:47] LABS: White Blood Count 33.56 10^3/uL (3.29-11.43)
[2024-06-19 09:00] LABS: INR 2.49 (0.8-1.2)
[2024-06-19] MEDS: HYDROcodone-acetaminophen 5-325 mg Tablet 1 TAB PO ×2 (11:28→19:22)
[2024-06-19 11:38] LABS: Glucose Point of Care 190 mg/dL (70-110)
--- NOTE | 2024-06-19 14:23 | P.PN_ITS ---
Subjective 2 Subjective: Seen with at bedside today. Patient is awake, alert. Denies any nausea vomiting, headache. Complaining of difficulty in breathing at rest. Saturating well over 95% on 1 to 2 L of oxygen. Has remained hemodynamically stable and afebrile. Vitals/I&O/Wt Last Vital Signs Temp 97.4 F L 06/19/24 11:11 Pulse 90 06/19/24 14:12 Resp 20 H 06/19/24 14:04 BP 140/82 06/19/24 11:11 Pulse Ox 97 06/19/24 14:04 O2 Del Method Nasal Cannula 06/19/24 14:04 O2 Flow Rate 2 06/19/24 14:04 06/18/24 06/19/24 06/19/24 22:59 06:59 14:59 Intake Total 960 / 1140 120 / 1260 720 / 720 Output Total 1175 / 1175 400 / 1575 450 / 450 Balance -215 / -35 -280 / -315 270 / 270 Weight last 48 hrs Weight 92.351 kg Weight 92.624 kg Physical Exam 2 Const: COMMON NORMALS: patient oriented x3 and alert; apparent distress (Mild distress because of difficulty in breathing) GENERAL APPEARANCE: cooperative, in distress and anxious ORIENTATION/CONSCIOUSNESS: Y es awake, Yes oriented to person, Yes oriented to place, Yes oriented to time and Yes confused HENMT: COMMON NORMALS: oropharynx normal Neck/C-Spine: COMMON NORMALS: no JVD Resp: AUSCULTATION: no rhonchi (Improving), wheezes and diminished lung sounds Cardio: COMMON NORMALS: no JVD, regular rhythm, S1 normal heart sound present, S2 normal heart sound present and No murmurs present (Cardio) RHYTHM: regular rhythm HEART SOUNDS: S1 normal heart sound present and S2 normal heart sound present GI: COMMON NORMALS: Normal to inspection, nondistended, normoactive bowel sounds present, Soft to palpation and non-tender PALPATION: Yes Soft to palpation Extremity: COMMON NORMALS: no joint enlargement and no pedal edema Neuro: COMMON NORMALS: patient oriented x3 and moves all extremities S ENSORIUM/ORIENTATION: Yes alert, Yes oriented to person, Yes oriented to place and Yes oriented to time Skin: COMMON NORMALS: no rashes or lesions noted GENERAL SKIN EXAM: no rashes or lesions noted Urinary Catheter Management: Yu: Cath Placed During This Visit: yes Reason for Continuing Indwelling Catheter: Accurate Measurement of Urinary Output in Critically Ill Patients Urinary Catheter Date of Insertion: 06/11/24 Urinary Catheter Time of Insertion: 17:39 Data 06/19/24 07:51 06/19/24 07:51 Micro: Microbiology 06/13/24 11:15 Blood Culture - Final Blood NO GROWTH AFTER 5 DAYS 06/13/24 11:13 Blood Culture - Final Blood NO GROWTH AFTER 5 DAYS 06/16/24 17:05 Gram Stain - Final Sputum - Expectorated Sputum Sputum Culture - Preliminary Gram Negative Rods 06/12/24 14:25 Gram Stain - Final Sputum - Expectorated Sputum Sputum Culture - Final Acinetobacter baumannii/haemol A&P Assessment and plan (1) Exertional dyspnea: (2) COPD with acute exacerbation: (3) Pneumonia: (4) Acute on chronic renal insufficiency: (5) Paroxysmal atrial fibrillation with RVR: (6) Long-term (current) use of anticoagulants, INR goal 2.0-3.0: (7) Compression fx, lumbar spine: Qualifiers: Encounter type: initial encounter Lumbar vertebra fracture level: L2 Qualified Code(s): S32.020A - Wedge compression fracture of second lumbar vertebra, initial encounter for closed fracture (8) Type 2 diabetes mellitus: Qualifiers: Chronic kidney disease stage: stage 4 (severe) Diabetes mellitus complication detail: with chronic kidney disease Diabetes mellitus complication status: with kidney complications Diabetes mellitus intermediate insulin use: w [facility] terminal manager use Qualified Code(s): E11.22 - Type 2 diabetes mellitus with diabetic chronic kidney disease; N18.4 - Chronic kidney disease, stage 4 (severe) (9) Chronic lymphocytic leukemia: (10) Heart failure with preserved ejection fraction: Qualifiers: Heart failure chronicity: acute on chronic Qualified Code(s): I50.33 - Acute on chronic diastolic (congestive) heart failure (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 Appreciate CT chest results. No concerns for congestive heart failure for now. Cannot rule out NSIP. Oxygen supplementation keeping saturation over 90%. Patient continues to have subjective feel of shortness of breath. Could not be in setting of anxiety. MRSA swab negative. Sputum culture growing acitenobacter. Highly resistant. No sensitivities for carbapenems. Will send out. As patient has remained afebrile without change in leukocytosis which is less in setting of CLL for now continue with meropenem. Will try to finish a 7-day course. Follow-up blood work and sputum culture results for histoplasma, coccidiomycosis, PCP. Appreciate LDH to be mildly elevated. Continue Solu-Medrol 40 mg twice daily. Nebulization with ipratropium, Xopenex every 6 hours, Pulmicort twice daily. Patient will most likely need a 7-day course of IV antibiotics. If does not improve he would benefit from follow-up with pulmonary team for possible bronchoscopy to rule out NSIP. Discussed in detail with patient and at bedside. They are both agreeable. Atrial fibrillation: Heart rate better controlled now. Continue with home dose of Cardizem and metoprolol 50 mg twice daily. Anticoagulation with Coumadin. Supratherapeutic INR: Resolving. Target INR 2-3. Continue with current dose of Coumadin. Possible bacteremia: Most likely contaminant. Repeat blood cultures so far negative. Pancreatic cyst: No previous history of GI malignancy or pancreatic cyst as per the patient Outpatient MRCP Compression fracture: Seen on CT imaging. Appreciate surgical recommendation. T SLO brace. Physical therapy. Encourage patient to continue to mobilize more with physical therapy. Hyperkalemia: Resolved for now. CLL: Follows up with oncology as an outpatient. Leukocytosis have remained stable. No concerns for tumor lysis syndrome for now. Uric acid normal. CKD: Uremia resolving. Baseline creatinine 1.8-2.8. Currently 1.8. Patient euvolemic. Hold off on any further diuresis and fluid for now. Continue other chronic home medications including Celexa, [place]. Full code. Again confirmed with patient and patient spouse at bedside. Coumadin for DVT prophylaxis Carb consistent diet dysphagia level 6. Protonix for PUD prophylaxis. Patient shortness most likely in setting of COPD exacerbation along with pneumonia. Cannot rule out NSIP versus anxiety. Patient would benefit from outpatient follow-up with pulmonology after completion of IV antibiotics. Plan for the day: Patient continues to have subjective feeling of shortness of breath. Having pursed lip breathing during examination today. Denies any nausea, vomiting. Follow-up sputum culture. Continue with meropenem for now. Patient taking warfarin and has remained therapeutic now but he continues to have difficulty in breathing with mildly elevated D-dimer, negative lower limb Dopplers will plan for VQ scan for further evaluation. For now we will continue with home dose of warfarin. If VQ scan is concerning we will plan to transition him from warfarin to NOAC. Continue with Solu-Medrol 40 mg IV twice daily. Worsening leukocytosis most likely in setting of steroids. Creatinine continues to improve. Lasix 40 mg oral once today. Monitor BMP daily. Has remained rate controlled. Continue with Cardizem and metoprolol. Physical therapy. Attestations 2 Medical Necessity Statement*: Requires further hospitalization for management of significant shortness of breath while PE is ruled out in a patient with pneumonia, CLL, A-fib Coding Level of Care Code Acute Code for Chg Fwd Diagnoses Exertional dyspnea R06.09 COPD with acute exacerbation J44.1 Pneumonia J18.9 Acute on chronic renal insufficiency N28.9; N18.9 Paroxysmal atrial fibrillation with RVR I48.0 Long-term (current) use of anticoagulants, INR goal 2.0-3.0 Z79.01 Compression fracture of L2 vertebra, initial encounter S32.020A Encounter type: initial encounter Lumbar vertebra fracture level: L2 Type 2 diabetes mellitus with stage 4 chronic kidney disease, without long-term current use of insulin E11.22; N18.4 Chronic kidney disease stage: stage 4 (severe) Diabetes mellitus complication detail: with chronic kidney disease Diabetes mellitus complication status: with kidney complications Diabetes mellitus terminal manager insulin use: without intermediate use Chronic lymphocytic leukemia C91.10 Acute on chronic heart failure with preserved ejection fraction I50.33 Heart failure chronicity: acute on chronic Moderate major depression F32.1 Supratherapeutic INR R79.1 Hyperkalemia E87.5
[2024-06-19] MEDS: warfarin 2 mg Tablet PO (14:37)
[2024-06-19 16:33] LABS: Glucose Point of Care 217 mg/dL (70-110)
[2024-06-19] MEDS: FUROsemide 40 mg Tablet PO (16:35)
[2024-06-19] MEDS: tamsulosin 0.4 mg Capsule PO (20:58)
[2024-06-19 21:35] LABS: Glucose Point of Care 207 mg/dL (70-110)
[2024-06-20] VITALS (9 sets, daily range): BP systolic 132–144; BP diastolic 57–83; PULSE 73–86; RESP 18–20; TEMP 36.3–36.6; O2SAT 94–99
[2024-06-20] MEDS: levalbuterol 0.63 mg/3 mL Neb INHALATION ×2 (01:05→07:22)
[2024-06-20] MEDS: ipratropium 0.5 mg/2.5 mL Neb INHALATION ×2 (01:05→07:22)
[2024-06-20 02:34] LABS: Fungitell 1-3-B Glucan Assay 102 pg/ml; Interpretation Positive (Negative)
[2024-06-20] MEDS: meropenem 1,000 mg SDV 1000 MG IVP (03:58)
--- NOTE | 2024-06-20 06:10 | PC.NURSE ---
patient was taken to radiology for a vq scan and is unable to tolerate being on his back for the amount of time it takes to perform the test. dr notified.
[2024-06-20] MEDS: allopurinol 300 mg Tablet 150 MG PO (06:18)
[2024-06-20] MEDS: methylPREDNISolone sod succ 40 mg/mL INJ IVP (06:19)
[2024-06-20 06:34] LABS: Basophils # 0.1 10^3/uL (0.0-0.1); Basophils % 0.2 %; Hematocrit 35.4 % (37-53); Lymphocytes # 5.2 10^3/uL (0.8-4.8); Lymphocytes % 14.3 %; Mean Corpuscular HGB Conc 33.1 g/dL (30-55); Mean Corpuscular Volume 93.9 fl (82-101); Mean Platelet Volume 10.5 fL (7.4-10.4); Monocytes # 0.9 10^3/uL (0.2-0.9); Monocytes % 2.5 %; Neutrophils # 29.16 10^3/uL (1.8-7.7); Nucleated Red Blood Cells % 0 %; Platelet Count 310 10^3/cmm (157-399); Red Blood Count 3.77 10^6/uL (3.85-5.65); Red Cell Distribution Width 14.9 % (12.1-15.1)
[2024-06-20 06:39] LABS: Glucose Point of Care 206 mg/dL (70-110)
[2024-06-20 06:52] LABS: Alanine Aminotransferase 56 U/L (0-41); Albumin Level 2.9 g/dL (3.5-5.2); Alkaline Phosphatase 102 U/L (40-130); Anion Gap 12.9 (5-19); Aspartate Amino Transferase 15 U/L (0-40); Blood Urea Nitrogen 74 mg/dL (8-23); Calcium 8.4 mg/dL (8.5-10.5); Carbon Dioxide 28 mmol/L (22-29); Chloride 97 mmol/L (98-107); Creatinine Clr Calc Pharmacy 40.8882; Globulin 2.1 g/dL (1.3-4.6); Glucose 238 mg/dL (65-115); Osmolality Calculated 306 mOsm/kg (285-295); Potassium 4.9 mmol/L (3.5-5.1); Sodium 133 mmol/L (136-145); Total Bilirubin 0.4 mg/dL (0.15-1.2)
[2024-06-20 06:59] LABS: White Blood Count 36.01 10^3/uL (3.29-11.43)
[2024-06-20 07:12] LABS: INR 2.57 (0.8-1.2)
[2024-06-20] MEDS: budesonide 0.5 mg/2 mL Neb INHALATION (07:22)
[2024-06-20] MEDS: insulin lispro 100 unit/1 mL SUBCUT ×2 (08:43→12:17)
[2024-06-20] MEDS: metoprolol tartrate 50 mg Tablet PO (08:44)
[2024-06-20] MEDS: dilTIAZem ER (24HR) 240 mg Capsule PO (08:44)
[2024-06-20] MEDS: guaiFENesin 600 mg Tablet 1200 MG PO (08:44)
[2024-06-20] MEDS: sennosides-docusate Tablet 1 TAB PO (08:44)
[2024-06-20] MEDS: citalopram 20 mg Tablet 40 MG PO (08:44)
[2024-06-20] MEDS: HYDROcodone-acetaminophen 5-325 mg Tablet 1 TAB PO (09:41)
[2024-06-20 11:30] LABS: Glucose Point of Care 262 mg/dL (70-110)
--- NOTE | 2024-06-20 12:36 | PC.SOCIAL ---
IMM Updated Updated pt & on IMM. No questions voiced. Provided pt a copy. Initialed, dated, & timed copy in chart.
--- NOTE | 2024-06-20 12:54 | PM.DCS ---
Discharge Providers Date of Admission: 06/12/24 10:37 Date of Discharge: June 20, 2024 Attending Provider at Admission: Patsy Christopher MD Attending Provider at Discharge: James Valdez MD Consults: Orthopedics: Dr. Harrell ID: Dr. Bauman Primary Care Provider: Abdirashid Rose MD Diagnoses at Discharge Discharge Diagnosis (1) Exertional dyspnea: Status: Acute (2) COPD with acute exacerbation: Status: Acute (3) Pneumonia: Status: Acute (4) Acute on chronic renal insufficiency: Status: Acute (5) Paroxysmal atrial fibrillation with RVR: Status: Acute (6) Long-term (current) use of anticoagulants, INR goal 2.0-3.0: Status: Acute (7) Compression fx, lumbar spine: Status: Inactive Qualifiers: Encounter type: initial encounter Lumbar vertebra fracture level: L2 Qualified Code(s): S32.020A - Wedge compression fracture of second lumbar vertebra, initial encounter for closed fracture (8) Type 2 diabetes mellitus: Status: Acute Qualifiers: Chronic kidney disease stage: stage 4 (severe) Diabetes mellitus complication detail: with chronic kidney disease Diabetes mellitus complication status: with kidney complications Diabetes mellitus exterminator helper termite insulin use: without exterminator helper termite use Qualified Code(s): E11.22 - Type 2 diabetes mellitus with diabetic chronic kidney disease; N18.4 - Chronic kidney disease, stage 4 (severe) (9) Chronic lymphocytic leukemia: Status: Acute (10) Heart failure with preserved ejection fraction: Status: Acute Qualifiers: Heart failure chronicity: acute on chronic Qualified Code(s): I50.33 - Acute on chronic diastolic (congestive) heart failure (11) Moderate major depression: Status: Acute (12) Supratherapeutic INR: Status: Acute (13) Hyperkalemia: Status: Acute Reason for Visit Reason for Visit: sob Hospital Course Hospital Course Jesús Cole is a 84 year old male who was admitted to the hospital on June 11, 2024 with a mechanical fall. He was found to have an L2 compression fracture on CT scan. Patient had additionally been complaining of worsening shortness of breath over the past 2 weeks. Review of past medical record shows that patient has a history of COPD and CLL. He is not currently on any chemotherapy. States that he previously used to follow with pulmonology. Additionally has CKD, not currently on dialysis. Patient has a history of recurrent pneumonias. States that he has been having this problem for the past several years. He estimates that in 2022 he was diagnosed with at least 4 episodes of pneumonia in the past year. Sputum cultures here have variously revealed Pseudomonas aeruginosa in 2022 which correlated with a cavitary pneumonia on CT scan. Additionally Achromobacter and most recently Acinetobacter on this current admission has been recovered. CT of the chest performed on June 11, 2024 had shown nonspecific lung findings which could be related to aspiration atypical pneumonia bronchitis. There was noted to be some increasing bibasilar reticular infiltrates perhaps inside sales representative of NSIP. Per personal interpretation of images there appeared to be bilateral scattered groundglass opacities nonspecific. As patient continued to have subjective feeling of shortness of breath at rest on exertion with episode of respiratory distr further evaluation was performed with sputum cultures which revealed Acinetobacter for which patient is currently on meropenem. There was a concern for PE but CTA could not be done because of CKD. Patient could not tolerate VQ scan. LDH is mildly elevated, as is B-D glucan greater than 100. nfectious diseases consulted due to concerns for pneumocystis pneumonia. PJP PCR remains pending at this time. The patient does not require per se being diagnosed with pneumocystis pneumonia in the past, he remembers having taken atovaquone Cipro previously. Patient states this was several years ago, does not know if he was taking this medication as prophylaxis or treatment. Because of clinical scenario decision was made to start at work on 750 mg twice daily after discussion with infectious disease while we are waiting for PCP PCR. He is also being transition from oral warfarin to full dose anticoagulation with Eliquis 10 mg twice daily for next 1 week followed by 5 mg twice daily. He is continued on his home dose of Lasix. During hospitalization he did have hyperkalemia which was managed conservatively. He also had labile renal functions which were monitored and managed with managing of fluid status. Currently his renal functions have been improving to stable for last 2 to 3 days. Hyperkalemia is resolved. During hospitalization he did have episode of A-fib with RVR for which oral metoprolol was added to his home dose of Cardizem which has been controlling his heart rate both at rest and exertion for last 2 to 3 days. For his compression fracture of the back orthopedics was consulted and they recommended patient to continue with physical therapy along with T SLO brace which she has been doing as much as he can given his shortness of breath. He is to follow-up with orthopedic team as an outpatient in 2 weeks. He is also discharged on meropenem to finish a 7-day course with last dose on 06/25. Safe discharge was discussed in detail with patient and patient's spouse at bedside and decision was made to transition to SNF for further rehabitation. Patient would benefit from pulmonary rehab and even a follow-up with pulmonary team as an outpatient. Referral has been sent to drip box tender in [place]. He is to follow-up with infectious disease as an outpatient. Physical Exam Const: COMMON NORMALS: patient oriented x3 and alert; apparent distress (Mild distress because of difficulty in breathing) GENERAL APPEARANCE: cooperative, in distress and anxious ORIENTATION/CONSCIOUSNESS: Yes awake, Yes oriented to person, Yes oriented to place, Yes oriented to time and Yes confused HENMT: COMMON NORMALS: oropharynx normal Neck/C-Spine: COMMON NORMALS: no JVD Resp: AUSCULTATION: no rhonchi (Improving), wheezes and diminished lung sounds Cardio: COMMON NORMALS: no JVD, regular rhythm, S1 normal heart sound present, S2 normal heart sound present and No murmurs present (Cardio) RHYTHM: regular rhythm HEART SOUNDS: S1 normal heart sound present and S2 normal heart sound present GI: COMMON NORMALS: Normal to inspection, nondistended, normoactive bowel sounds present, Soft to palpation and non-tender PALPATION: Yes Soft to palpation Extremity: COMMON NORMALS: no joint enlargement and no pedal edema Neuro: COMMON NORMALS: patient oriented x3 and moves all extremities SENSORIUM/ORIENTATION: Yes alert, Yes oriented to person, Yes oriented to place and Yes oriented to time Skin: COMMON NORMALS: no rashes or lesions noted GENERAL SKIN EXAM: no rashes or lesions noted Urinary Catheter Management: Yu: Cath Placed During This Visit: yes Reason for Continuing Indwelling Catheter: Acute Urinary Retention or Obstruction Urinary Catheter Date of Insertion: 06/11/24 Urinary Catheter Time of Insertion: 17:39 Discharge Data Studies Completed and Pending Completed Studies During Hospitalization Category Date Time Status CT chest wo con [id number] Stat Cat Scan 06/11/24 02:32 Completed Modified barium swallow [FL barium swallow modifd [id number] Exams 06/11/24 08:56 Completed ] Routine XR chest 1V portable [id number] Routine Exams 06/16/24 17:43 Completed XR chest 1V portable [id number] Stat Exams 06/11/24 02:28 Completed MR lumbar spine wo con* [id number] Routine MRI 06/11/24 07:09 Completed CV. echo limited [id number] Routine Ultrasound 06/16/24 17:50 Completed US venous duplex upper extremity RT [CV venous duplex Ultrasound 06/16/24 12:[place] [id number]] Routine Pending at discharge Category Date Time Status Aerobic Bacterium Id & Suscept Routine Lab 06/12/24 14:51 Received Histoplasma Quantitative AG Routine Lab 06/16/24 17:27 Received Pneumocystis PCP [Pneumocystis jiroveci Qual PCR] Lab 06/16/24 17:05 Received Routine SARS Covid-2 Antigen Stat Lab 06/20/24 12:49 Uncollected Sputum Culture and Gram Stain Routine Lab 06/16/24 17:05 Results Radiology Impressions Chest CT 06/11/24 02:32 IMPRESSION: 1. Nonspecific lung findings which can be seen acute on chronic bronchitis, aspiration, atypical pneumonias. Correlate clinically. 2. Increasing bibasilar reticular infiltrates which seems to spare the immediate subpleural region suggesting NSIP, however nonspecific in may reflect other types interstitial lung disease/fibrosis. Pulmonary consultation can be obtained. 3. Increasing hypodense nodules of the pancreatic body, suggesting cystic pathology recommend magnetic resonance cholangiopancreatography for further assessment. Lumbar Spine MRI 06/11/24 07:09 IMPRESSION: 1. Acute L2 compression fracture by approximately 10% without retropulsion. No interval change since the prior lumbar CT of 06/09/2024. 2. Stenosis at multiple disc levels. Stenosis is due to combination of osteophytic ridging, disc protrusions, ligamentum flavum and facet arthritis. 3. L3-4: Moderate central with bilateral subarticular recess and mild foraminal stenosis. 4. L4-5: Severe central with bilateral subarticular recess and mild RIGHT foraminal stenosis. Probable small disc protrusion contacting the RIGHT traversing L5 nerve root in the subarticular recess. 5. L5-S1: Small central disc protrusion contacting the traversing S1 nerve roots. Mild central, bilateral subarticular recess and RIGHT foraminal stenosis. 6. L2-3: Mild central, bilateral subarticular recess and RIGHT foraminal stenosis. 7. L1-2: Very mild disc contact on the traversing L2 nerve roots. Modified Barium Swallow 06/11/24 08:56 IMPRESSION: Modified barium swallow as above. Venous Duplex 06/16/24 12:58 IMPRESSION: No evidence of deep vein thrombosis. Chest X-Ray 06/16/24 17:43 IMPRESSION: 1. Pulmonary atelectasis or acute infiltrates within lower chest bilaterally. 2. Linear bilateral chest pulmonary atelectasis, or scarring. 3. Pulmonary emphysema. Echocardiogram: CONCLUSIONS Normal LV size and ejection fraction of 64%. No regional wall motion abnormalities. Mild to moderate calcification of aortic valve. Features of aortic valve sclerosis with a peak velocity of 2.3 m/s Trace tricuspid valve regurgitation. Estimated pulmonary artery peak systolic pressure 30 mmHg There is no pericardial effusion. There are no intracardiac masses. Compared to the study from 12/29/2023, there may not be significant change Dr Rudi Briscoe MD [facility] (Electronically Signed) Final Date: 17 June 2024 Microbiology 06/13/24 11:15 Blood Blood Culture - Final NO GROWTH AFTER 5 DAYS 06/13/24 11:13 Blood Blood Culture - Final NO GROWTH AFTER 5 DAYS 06/16/24 17:05 Sputum - Expectorated Sputum Gram Stain - Final 06/16/24 17:05 Sputum - Expectorated Sputum Sputum Culture - Preliminary Gram Negative Rods 06/12/24 14:25 Sputum - Expectorated Sputum Gram Stain - Final 06/12/24 14:25 Sputum - Expectorated Sputum Sputum Culture - Final Acinetobacter baumannii/haemol 06/11/24 03:16 Blood Blood Culture - Final NO GROWTH AFTER 5 DAYS 06/11/24 03:20 Blood Blood Culture - Final Staphylococcus epidermidis Corynebacterium species Laboratory Results WBC 36.01 10^3/uL (3.29-11.43) H* 06/20/24 05:36 RBC 3.77 10^6/uL (3.85-5.65) L 06/20/24 05:36 Hgb 11.70 g/dL (11.27-16.99) 06/20/24 05:36 Hct 35.4 % (37-53) L 06/20/24 05:36 MCV 93.9 fl (82-101) 06/20/24 05:36 MCH 31.0 pg (27-33) 06/20/24 05:36 MCHC 33.1 g/dL (30-55) 06/20/24 05:36 RDW 14.9 % (12.1-15.1) 06/20/24 05:36 Plt Count 310 10^3/cmm (157-399) 06/20/24 05:36 MPV 10.5 fL (7.4-10.4) H 06/20/24 05:36 Neut % (Auto) 81.0 % 06/20/24 05:36 Lymph % (Auto) 14.3 % 06/20/24 05:36 [place] % (Auto) 2.5 % 06/20/24 05:36 Eos % (Auto) 0.0 % 06/20/24 05:36 Baso % (Auto) 0.2 % 06/20/24 05:36 Neut # (Auto) 29.16 10^3/uL (1.8-7.7) H 06/20/24 05:36 Lymph # (Auto) 5.2 10^3/uL (0.8-4.8) H 06/20/24 05:36 [place] # (Auto) 0.9 10^3/uL (0.2-0.9) 06/20/24 05:36 Eos # (Auto) 0.0 10^3/uL (0.0-0.8) 06/20/24 05:36 Baso # (Auto) 0.1 10^3/uL (0.0-0.1) 06/20/24 05:36 Nucleated RBC % (auto) 0 % 06/20/24 05:36 Nucleated RBCs # 0.0 /100WBC 06/20/24 05:36 ESR 12 mm/hr (0-10) H 06/16/24 05:48 PT 28.60 SECONDS (12.1-14.9) H 06/20/24 05:36 INR 2.57 (0.8-1.2) H 06/20/24 05:36 APTT 39.8 SECONDS (23.9-36.7) H 06/11/24 03:16 D-Dimer 2.71 ug/mLFEU (0-0.59) H 06/16/24 18:33 Specimen Type Arterial 06/16/24 17:28 Sample Site Radial, left 06/16/24 17:28 ABG pH 7.43 (7.35-7.45) 06/16/24 17:28 ABG pCO2 35.3 mmHg (35-45) 06/16/24 17:28 ABG pO2 74.0 mmHg (80.0-100.0) L 06/16/24 17: ABG PO2/FiO2 Ratio 264 06/16/24 17: ABG HCO3 23.5 mmol/L (22-26) 06/16/24 17:28 ABG O2 Saturation 96.0 06/16/24 17:28 ABG Base Excess -0.4 mmol/L (-2.0-2.0) 06/16/24 17: Hema Test Pos 06/16/24 17:28 A-a O2 Gradient 10.4 mmHg (5-10) H 06/16/24 17:28 Hematocrit 35.0 % (42-52) L 06/16/24 17:28 Hgb O2 Saturation 94.2 % (95-100) L 06/16/24 17:28 Carboxyhemoglobin 0.8 %THgb (0.4-20.1) 06/16/24 17:28 Methemoglobin 1.1 % (0.4-1.5) 06/16/24 17:28 Total Hemoglobin 11.4 g/dL (14-18) L 06/16/24 17:28 Sodium 137.0 mmol/L (131-143) 06/16/24 17:28 Potassium 4.7 mmol/L (3.5-5.0) 06/16/24 17:28 Glucose 135.0 mg/dL (70-115) H 06/16/24 17:28 Ionized Calcium 1.3 mmol/L (1.1-1.4) 06/16/24 17:28 O2 Delivery Device Nc 06/16/24 17:28 O2 Liters/Min 2.0 % 06/16/24 17:28 FiO2 28.0 % 06/16/24 17:28 Marketing Automation Manager ID [place] 06/16/24 17:28 Sodium 133 mmol/L (136-145) L 06/20/24 05:36 Potassium 4.9 mmol/L (3.5-5.1) 06/20/24 05:36 Chloride 97 mmol/L (98-107) L 06/20/24 05:36 Carbon Dioxide 28 mmol/L (22-29) 06/20/24 05:36 Anion Gap 12.9 (5-19) 06/20/24 05:36 BUN 74 mg/dL (8-23) H 06/20/24 05:36 Creatinine 1.6 mg/dL (0.7-1.2) H 06/20/24 05:36 GFR Calculation Not Reportable 06/20/24 05:36 Glucose 238 mg/dL (65-115) H 06/20/24 05:36 POC Glucose 262 mg/dL (70-110) H 06/20/24 11:21 Calculated Osmolality 306 mOsm/kg (285-295) H 06/20/24 05:36 Lactic Acid 2.3 mmol/L (0.5-2.2) H 06/11/24 03:16 Lactic Acid (Sepsis) 2.8 mmol/L (0.5-2.2) H 06/11/24 09:22 Lactate Cancelled 06/11/24 03:16 Uric Acid 5.1 mg/dL (3.4-7.0) 06/16/24 18:33 Calcium 8.4 mg/dL (8.5-10.5) L 06/20/24 05:36 Magnesium 2.2 mg/dL (1.7-2.3) 06/12/24 05:27 Total Bilirubin 0.4 mg/dL (0.15-1.2) 06/20/24 05:36 AST 15 U/L (0-40) 06/20/24 05:36 ALT 56 U/L (0-41) H 06/20/24 05:36 Alkaline Phosphatase 102 U/L (40-130) 06/20/24 05:36 Lactate Dehydrogenase 239 U/L (135-225) H 06/16/24 15:14 Creatine Kinase 35 U/L (39-308) L 06/16/24 18:33 Troponin T Baseline 22 ng/L (0-15) H 06/16/24 18:33 Troponin T 120 Minute 22.15 ng/L (0-15) H 06/16/24 21:17 Delta Troponin T 0.15 ABS# (0-10) 06/16/24 21:17 Troponin T Hi Sens 6Hr 21.47 ng/L (0-15) H 06/17/24 00:42 Troponin T Hi Sens 6Hr Delta -0.53 ng/L (0-12) L 06/17/24 00:42 C-Reactive Protein 5.4 mg/L (0.0-4.9) H 06/16/24 18:33 NT-Pro-B Natriuret Pep 3507 pg/mL (0-450) H 06/16/24 18:33 Total Protein 5.0 g/dL (6.6-8.7) L 06/20/24 05:36 Albumin 2.9 g/dL (3.5-5.2) L 06/20/24 05:36 Globulin 2.1 g/dL (1.3-4.6) 06/20/24 05:36 Procalcitonin 0.46 ng/mL (0-0.5) 06/11/24 03:16 Urine Color Dark yellow (Yellow) A 06/11/24 04:00 Urine Appearance Clear (CLEAR) 06/11/24 04:00 Urine pH 5 (5-7) 06/11/24 04:00 Ur Specific Davidson 1.018 (1.005-1.030) 06/11/24 04:00 Urine Protein Trace (Negative) 06/11/24 04:00 Urine Glucose (UA) Norm (Normal) 06/11/24 04:00 Urine Ketones Trace (Negative) H 06/11/24 04:00 Urine Blood Neg (Negative) 06/11/24 04:00 Urine Nitrate Negative (Negative) 06/11/24 04:00 Urine Bilirubin Neg (Negative) 06/11/24 04:00 Urine Urobilinogen 1.0 mg/dL (Negative) 06/11/24 04:00 Ur Leukocyte Esterase Trace (Negative) 06/11/24 04:00 Urine RBC 0-2 /hpf (0-2) 06/11/24 04:00 Urine WBC 6-10 /hpf (0-5) 06/11/24 04:00 Ur Squamous Epith Cells 0-4 /hpf (0-5) H 06/11/24 04:00 Amorphous Sediment Not Reportable 06/11/24 04:00 Urine Bacteria None /hpf (NONE) 06/11/24 04:00 Hyaline Casts 39.70 /lpf 06/11/24 04:00 Nasal MRSA (PCR) Not detected (Negative) 06/16/24 19:03 Adenovirus (PCR) Not detected (NOT DETECT) 06/11/24 12:00 C. pneumoniae DNA (PCR) Not detected (NOT DETECT) 06/11/24 12:00 Coronavirus (PCR) Negative (Negative) 06/11/24 02:57 Coronavirus 229E (PCR) Not detected (NOT DETECT) 06/11/24 12:00 Human Metapneumovir PCR Not detected (NOT DETECT) 06/11/24 12:00 Influenza A (H1) PCR Not detected (NOT DETECT) 06/11/24 12:00 Influenza A (PCR) Negative (Negative) 06/11/24 02:57 Influ A (H1/09) PCR Not detected (NOT DETECT) 06/11/24 12:00 Influenza A (H3) PCR Not detected (NOT DETECT) 06/11/24 12:00 Influenza Type A (PCR) Not detected (NOT DETECT) 06/11/24 12:00 Influenza Type B (PCR) Not detected (NOT DETECT) 06/11/24 12:00 M. pneumoniae (PCR) Not detected (NOT DETECT) 06/11/24 12:00 Parainfluenza 1 (PCR) Not detected (NOT DETECT) 06/11/24 12:00 Parainfluenza 2 (PCR) Not detected (NOT DETECT) 06/11/24 12:00 Parainfluenza 3 (PCR) Not detected (NOT DETECT) 06/11/24 12:00 Parainfluenza 4 (PCR) Not detected (NOT DETECT) 06/11/24 12:00 RSV (PCR) Negative (Negative) 06/11/24 02:57 RSV Type A (PCR) Not detected (NOT DETECT) 06/11/24 12:00 RSV Type B (PCR) Not detected (NOT DETECT) 06/11/24 12:00 Entero/Rhino (PCR) Not detected (NOT DETECT) 06/11/24 12:00 SARS-CoV-2 (PCR) Not detected (NOT DETECT) 06/11/24 12:00 Beta-(1,3)-D-Glucan 102 pg/ml 06/17/24 00:42 B-(1,3)-D-Glucan Intrp Positive (Negative) A 06/17/24 00:42 Vitals Last Vital Signs Temp 97.4 F L 06/20/24 12:00 Pulse 82 06/20/24 12:00 Resp 18 06/20/24 12:00 BP 134/78 06/20/24 12:00 Pulse Ox 97 06/20/24 12:00 O2 Del Method Nasal Cannula 06/20/24 12:00 O2 Flow Rate 2 06/20/24 12:00 Discharge Plan Discharge Patient Disposition: Xfer SNF Condition: Stable Prescriptions: New atovaquone 750 mg/5 mL suspension 750 mg PO BID 21 Days Qty: 210 0RF Rx Instructions: must administer with food, preferably a high-fat meal metoprolol tartrate 50 mg Tablet 50 mg PO BID@0900,2100 30 Days Qty: 60 0RF guaifenesin [Mucinex] 600 mg Tablet Extended Release 12hr 1,200 mg PO BID 14 Days Qty: 56 0RF Eliquis 5 mg tablet 5 mg PO BID Qty: 60 0RF Rx Instructions: 10 mg BID for 7 days followed by 5 mg BID prednisone 10 mg tablet See Taper PO DIRECTED Qty: 42 0RF Taper: predniSONE 60-10 60 mg Daily for 2 Days and 0 Hour 50 mg Daily for 2 Days and 0 Hour 40 mg Daily for 2 Days and 0 Hour 30 mg Daily for 2 Days and 0 Hour 20 mg Daily for 2 Days and 0 Hour 10 mg Daily for 2 Days and 0 Hour Rx Instructions: see taper instructions budesonide 0.5 mg/2 mL Suspension For Nebulization 0.5 mg inhalation BID.RESPIRATORY 30 Days Qty: 120 0RF ipratropium bromide 0.02 % Solution 0.5 mg inhalation Q6H.RESP 30 Days Qty: 300 0RF levalbuterol HCl 0.63 mg/3 mL Solution For Nebulization 0.63 mg inhalation Q6H.RESP 30 Days Qty: 360 0RF Continued furosemide 40 mg tablet 40 mg PO DAILY Qty: 90 3RF famotidine 20 mg tablet 20 mg PO BID Qty: 60 3RF formoterol fumarate [Perforomist] 20 mcg/2 mL solution for nebulization 2 ml inhalation BID Qty: 120 6RF Yupelri 175 mcg/3 mL solution for nebulization 175 mcg inhalation DAILY Qty: 90 6RF diltiazem HCl 240 mg capsule,extended release 24 hr 240 mg PO DAILY Qty: 60 0RF albuterol sulfate 90 mcg/actuation HFA aerosol inhaler 2 puff inhalation Q4H PRN (Reason: Shortness Of Breath) Qty: 8.5 6RF citalopram 40 mg tablet 40 mg PO DAILY Qty: 90 1RF tamsulosin [Flomax] 0.4 mg capsule 0.4 mg PO BEDTIME Qty: 90 1RF atorvastatin 20 mg tablet 20 mg PO BEDTIME Tradjenta 5 mg tablet 5 mg PO BEDTIME hydrocodone-acetaminophen 5-325 mg tablet 1 tab PO Q6H PRN (Reason: pain) Qty: 25 0RF allopurinol 300 mg tablet 150 mg PO QAM Discontinued olmesartan 5 mg tablet 5 mg PO BID Qty: 180 0RF warfarin 3 mg tablet 3 mg PO DIRECTED Qty: 90 3RF Protocol: Dose Management Condition: Sunday Dose/Route: 3 mg Instruction: 1 x 3 mg tablet Condition: Sunday Dose/Route: 4 mg Instruction: 2 x 2 mg tablets Condition: Sunday Dose/Route: 3 mg Instruction: 1 x 3 mg tablet Condition: Sunday Dose/Route: 4 mg Instruction: 2 x 2 mg tablets Condition: Dose/Route: 3 mg Instruction: 1 x 3 mg tablet Condition: Sunday Dose/Route: 4 mg Instruction: 2 x 2 mg tablets Condition: Sunday Dose/Route: 3 mg Instruction: 1 x 3 mg tablet Protocol Text: Adjustment Start Date: Sunday06/09/24 INR Value: 21.70 SECONDS INR Date: 06/09/24 Recheck Date: 06/16/24 Rx Instructions: Sunday only warfarin 2 mg tablet 2 mg PO DAILY Qty: 90 0RF Protocol: Dose Management Condition: Sunday Dose/Route: 3 mg Instruction: 1 x 3 mg tablet Condition: Sunday Dose/Route: 4 mg Instruction: 2 x 2 mg tablets Condition: Sunday Dose/Route: 3 mg Instruction: 1 x 3 mg tablet Condition: Sunday Dose/Route: 4 mg Instruction: 2 x 2 mg tablets Condition: Dose/Route: 3 mg Instruction: 1 x 3 mg tablet Condition: Sunday Dose/Route: 4 mg Instruction: 2 x 2 mg tablets Condition: Sunday Dose/Route: 3 mg Instruction: 1 x 3 mg tablet Protocol Text: Adjustment Start Date: Sunday06/09/24 INR Value: 21.70 SECONDS INR Date: 06/09/24 Recheck Date: 06/16/24 Discharge Orders: Discharge Order (Routine); Ordered 06/20/24 Ordered By: James Valdez Referrals: [facility] [Outside] Malcolm Harrell DO [Physician] - 2 weeks Preston Diamond MD, MBBS, MPH [Referring] - (0COPD with concerns for PCP pneumonia, CLL, on chronic hypoxic respiratory failure We have notified your physician's clinic of the need for a follow-up appointment to be scheduled. If you have not heard from them within the next 2 business days, please call them directly. ) Abdirashid Rose MD [Primary Care Provider] - Discharge Diet: Cardiac Discharge Activity: Resume usual activity and Increase activity as tolerated Patient Instructions: Opioid Safety Activity Restrictions/Additional Instructions: Follow-up in orthopedic clinic in 2 weeks. Wear TLSO brace when out of bed. Dysphagia level 6 diet Continue with meropenem as prescribed twice daily to finish a 7-day course. Continue atovaquone 750 mg twice daily for next 21 days. Follow-up with pulmonary team as an outpatient at the earliest. Follow-up with infectious disease on set appointment. Restrict fluid intake to less than 1500 cc, salt intake to less than 2 g daily. Advised to check his weight daily at home. Is advised that weight today would be the dry weight and if body weight increases by around 5 pounds, patient is to take an extra dose of Lasix daily till body weight comes down to weight today. If not able to come down to dry body weight in 1 week, then is to call cardiology office for further recommendations. Patient was counseled in detail to take medications regularly as prescribed. Discharge Attestations Time Spent in Discharge Care*: greater than 30 min Quality Metrics Clinical Quality Measures [ No reported AMI, CVA or VTE this stay] Coding Level of Care Code 65437 Total time (in minutes) for Discharge: 80 Diagnoses Exertional dyspnea R06.09 COPD with acute exacerbation J44.1 Pneumonia J18.9 Acute on chronic renal insufficiency N28.9; N18.9 Paroxysmal atrial fibrillation with RVR I48.0 Long-term (current) use of anticoagulants, INR goal 2.0-3.0 Z79.01 Compression fracture of L2 vertebra, initial encounter S32.020A Encounter type: initial encounter Lumbar vertebra fracture level: L2 Type 2 diabetes mellitus with stage 4 chronic kidney disease, without long-term current use of insulin E11.22; N18.4 Chronic kidney disease stage: stage 4 (severe) Diabetes mellitus complication detail: with chronic kidney disease Diabetes mellitus complication status: with kidney complications Diabetes mellitus fpc insulin use: without exterminator helper termite use Chronic lymphocytic leukemia C91.10 Acute on chronic heart failure with preserved ejection fraction I50.33 Heart failure chronicity: acute on chronic Moderate major depression F32.1 Supratherapeutic INR R79.1 Hyperkalemia E87.5
[2024-06-20] MEDS: warfarin 2 mg Tablet PO (13:21)
[2024-06-20] MEDS: magnesium hydroxide 30 mL UDC PO (14:12)
[2024-06-20 14:30] LABS: SARS Covid-2 Antigen negative (Negative)
--- NOTE | 2024-06-20 16:07 | P.CONIM_ITS ---
Providers/Reason For Consult 2 Consulting Physician/Specialty*: stacey bauman MD/infectious disease Reason for Consult*: suspected PJP Requesting Physician: James Valdez MD Attending Physician: James Valdez MD Primary Care Provider: Abdirashid Rose MD History of Present Illness History of Present Illness Jesús Cole is a 84 year old male who was admitted to the hospital on June 11, 2024 with a mechanical fall. He was found to have an L2 compression fracture on CT scan. Patient had additionally been complaining of worsening shortness of breath over the past 2 weeks. Review of past medical record shows that patient has a history of COPD and CLL. He is not currently on any chemotherapy. States that he previously used to follow with pulmonology. Additionally has CKD, not currently on dialysis. Patient has a history of recurrent pneumonias. States that he has been having this problem for the past several years. He estimates that in 2022 he was diagnosed with at least 4 episodes of pneumonia in the past year. Sputum cultures here have variously revealed Pseudomonas aeruginosa in 2022 which correlated with a cavitary pneumonia on CT scan. Additionally Achromobacter and most recently Acinetobacter on this current admission has been recovered. CT of the chest performed on June 11, 2024 had shown nonspecific lung findings which could be related to aspiration atypical pneumonia bronchitis. There was noted to be some increasing bibasilar reticular infiltrates perhaps commercial pest control representative of NSIP. Per personal interpretation of images there appeared to be bilateral scattered groundglass opacities nonspecific. Further evaluation was performed with sputum cultures which revealed Acinetobacter for which patient is currently on meropenem. LDH is mildly elevated, as is B-D glucan greater than 100. nfectious diseases consulted due to concerns for pneumocystis pneumonia. PJP PCR remains pending at this time. The patient does not require per se being diagnosed with pneumocystis pneumonia in the past, he remembers having taken atovaquone Cipro previously. Patient states this was several years ago, does not know if he was taking this medication as prophylaxis or treatment. Patient is typically not on chronic steroids. He is currently on high-dose steroids due to COPD exacerbation. Underlying history of CLL, not on any chemotherapy at this present time. Review of Systems 2 General: Reports: 10 or more systems reviewed and unremarkable except in HPI and below Const: Denies: fever(s), chills or body aches Eyes: Denies: change in vision, blurry vision or photophobia ENMT: Reports: hoarseness; Denies: throat pain, enlarged tonsils, odynophagia or nasal congestion Card: Denies: chest pain, palpitations, irregular heart rhythm, edema, swelling of feet/ankles, lightheadedness, pre-syncope, dyspnea on exertion or orthopnea Resp: Denies: dyspnea, productive cough, non-productive cough, wheezing, stridor, pain on inspiration, change in phlegm color, hemoptysis or chest congestion GI: Denies: abdominal pain, nausea, vomiting, hematemesis, coffee ground emesis, dysphagia, heartburn, diarrhea, constipation, GI cramping, change in stool character, hematochezia or melena : Denies: flank pain, dysuria, urinary frequency, urinary urgency, urinary hesitancy or hematuria Musc: Denies: neck pain, back pain, extremity pain, joint swelling, joint warmth or deformity Neuro: Denies: headache(s), numbness in extremities, weakness in extremities, sensory changes, difficulty walking, frequent falls, dizziness, vertigo, behavioral changes, Slurred speech present or seizure-like activity Psych: Denies: anxiety, depression, suicidal ideation or homicidal ideation Endo: Denies: polyuria, polydipsia, tired all the time, cold intolerance or hot flashes Fidencio/Lymph: Denies: easy bruising or easy bleeding Medications/Allergies Home Medications Medication Instructions Recorded Confirmed Last Taken Type atorvastatin 20 mg tablet 20 mg PO BEDTIME 12/30/23 06/11/24 04/10/24 History linagliptin 5 mg tablet (Tradjenta) 5 mg PO BEDTIME 12/30/23 06/11/24 04/10/24 History formoterol fumarate 20 mcg/2 mL 2 ml inhalation BID #120 mL 02/08/24 06/11/24 04/11/24 Rx solution for nebulization (Perforomist) revefenacin 175 mcg/3 mL solution 175 mcg (3 mL) inhalation DAILY 02/26/24 06/11/24 04/11/24 Rx for nebulization (Rosie) COPD J44.9 #90 mL furosemide 40 mg tablet 40 mg PO DAILY #90 tabs 03/14/24 06/11/24 04/11/24 Rx famotidine 20 mg tablet 20 mg PO BID GERD #60 tabs 04/04/24 06/11/24 Unknown Rx allopurinol 300 mg tablet 150 mg PO QAM 04/11/24 06/11/24 04/11/24 History diltiazem HCl 240 mg capsule,24 240 mg PO DAILY #60 caps 05/07/24 06/11/24 Unknown Rx hr,extended release albuterol sulfate 90 mcg/actuation 2 puff inhalation Q4H PRN 06/03/24 06/11/24 Unknown Rx aerosol inhaler Shortness Of Breath #8.5 grams citalopram 40 mg tablet 40 mg PO DAILY #90 tabs 06/09/24 06/11/24 Unknown Rx hydrocodone 5 mg-acetaminophen 325 1 tab PO Q6H PRN pain #25 tabs 06/09/24 06/11/24 Unknown Rx mg tablet tamsulosin 0.4 mg capsule (Flomax) 0.4 mg PO BEDTIME #90 caps 06/16/24 Unknown Rx apixaban 5 mg tablet (Eliquis) 5 mg PO BID #60 tabs 06/20/24 Unknown Rx atovaquone 750 mg/5 mL oral 750 mg (5 mL) PO BID 21 days #210 06/20/24 Unknown Rx suspension mL budesonide 0.5 mg/2 mL suspension 0.5 mg (2 mL) inhalation 06/20/24 Unknown Rx for nebulization BID.RESPIRATORY 30 days #120 mL guaifenesin 600 mg tablet, 1,200 mg (2 x 600 mg) PO BID 14 06/20/24 Unknown Rx extended release 12 hr (Mucinex) days #56 tabs ipratropium bromide 0.02 % 0.5 mg (2.5 mL) inhalation 06/20/24 Unknown Rx solution for inhalation Q6H.RESP 30 days #300 mL levalbuterol HCl 0.63 mg/3 mL 0.63 mg (3 mL) inhalation Q6H.RESP 06/20/24 Unknown Rx solution for nebulization 30 days #360 mL metoprolol tartrate 50 mg tablet 50 mg PO BID@0900,2100 30 days #60 06/20/24 Unknown Rx tabs prednisone 10 mg tablet See Taper PO DIRECTED #42 tabs 06/20/24 Unknown Rx Allergies Allergy/AdvReac Type Severity Reaction Status Date / Time No Known Allergies Allergy Verified 06/11/24 02:31 PFSH Acute 2 PFSH: Medical History CKD (chronic kidney disease), 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 Bennett - 11/2021 at [place], [place] History of prostate surgery History of total knee replacement bilateral History of cholecystectomy Family History Other Cancer Hypertension Lung disease Denies family history of Diabetes CAD (coronary artery disease) Clotting disorder Dementia Hyperlipidemia Psychiatric illness Chronic kidney disease (CKD) Suicide Anesthesia complication Bleeding disorder Stroke Social History Smoking and tobacco/nicotine status: former use of tobacco/nicotine Quit status (tobacco/nicotine): has quit using Year quit tobacco: 2009 - 1PPD x 50 Years Second hand smoke exposure: No Alcohol intake: current Substance/Drug Use: never Lives independently: Yes Household members: spouse Marital status: Current occupational status: retired Do you think of yourself as: Straight/Heterosexual Current gender identity: Male Vitals/I&O/Wt Last Vital Signs Temp 97.4 F L 06/20/24 15:43 Pulse 82 06/20/24 15:43 Resp 18 06/20/24 15:43 BP 134/78 06/20/24 15:43 Pulse Ox 97 06/20/24 15:43 O2 Del Method Nasal Cannula 06/20/24 15:11 O2 Flow Rate 2 06/20/24 15:11 06/20/24 06/20/24 06/20/24 06:59 14:59 22:59 Output Total 1800 / 2250 375 / 375 Balance -1800 / -1530 -375 / -375 Weight last 48 hrs Weight 93.531 kg Weight 92.351 kg Physical Exam 2 Narrative: General: No acute distress, AO x3 HEENT: PERRLA, pupils bilaterally equal and reactive, pallors not present Chest: Normal vesicular breath sounds, no added sounds, equal good air entry bilaterally CVS: Bilateral scattered wheezing to auscultation Abdomen: Soft, nontender, no organomegaly, bowel sounds present Neuro: No focal deficits, no facial deformity, AO x3, power 5/5 in all limbs Urinary Catheter Management: Yu: Cath Placed During This Visit: yes, but has since been removed by the nurse Reason for Continuing Indwelling Catheter: Decision to DC Catheter Urinary Catheter Date of Insertion: 06/11/24 Urinary Catheter Time of Insertion: 17:39 Date Urinary Catheter Removed: 06/20/24 Time Urinary Catheter Discontinued: 13:50 Data 06/20/24 05:36 06/20/24 05:36 Other data: Radiology Impressions Chest CT 06/11/24 02:32 IMPRESSION: 1. Nonspecific lung findings which can be seen acute on chronic bronchitis, aspiration, atypical pneumonias. Correlate clinically. 2. Increasing bibasilar reticular infiltrates which seems to spare the immediate subpleural region suggesting NSIP, however nonspecific in may reflect other types interstitial lung disease/fibrosis. Pulmonary consultation can be obtained. 3. Increasing hypodense nodules of the pancreatic body, suggesting cystic pathology recommend magnetic resonance cholangiopancreatography for further assessment. Lumbar Spine MRI 06/11/24 07:09 IMPRESSION: 1. Acute L2 compression fracture by approximately 10% without retropulsion. No interval change since the prior lumbar CT of 06/09/2024. 2. Stenosis at multiple disc levels. Stenosis is due to combination of osteophytic ridging, disc protrusions, ligamentum flavum and facet arthritis. 3. L3-4: Moderate central with bilateral subarticular recess and mild foraminal stenosis. 4. L4-5: Severe central with bilateral subarticular recess and mild RIGHT foraminal stenosis. Probable small disc protrusion contacting the RIGHT traversing L5 nerve root in the subarticular recess. 5. L5-S1: Small central disc protrusion contacting the traversing S1 nerve roots. Mild central, bilateral subarticular recess and RIGHT foraminal stenosis. 6. L2-3: Mild central, bilateral subarticular recess and RIGHT foraminal stenosis. 7. L1-2: Very mild disc contact on the traversing L2 nerve roots. Modified Barium Swallow 06/11/24 08:56 IMPRESSION: Modified barium swallow as above. Venous Duplex 06/16/24 12:58 IMPRESSION: No evidence of deep vein thrombosis. Chest X-Ray 06/16/24 17:43 IMPRESSION: 1. Pulmonary atelectasis or acute infiltrates within lower chest bilaterally. 2. Linear bilateral chest pulmonary atelectasis, or scarring. 3. Pulmonary emphysema. Laboratory Results WBC 36.01 10^3/uL (3.29-11.43) H* 06/20/24 05:36 RBC 3.77 10^6/uL (3.85-5.65) L 06/20/24 05:36 Hgb 11.70 g/dL (11.27-16.99) 06/20/24 05:36 Hct 35.4 % (37-53) L 06/20/24 05:36 MCV 93.9 fl (82-101) 06/20/24 05:36 MCH 31.0 pg (27-33) 06/20/24 05:36 MCHC 33.1 g/dL (30-55) 06/20/24 05:36 RDW 14.9 % (12.1-15.1) 06/20/24 05:36 Plt Count 310 10^3/cmm (157-399) 06/20/24 05:36 MPV 10.5 fL (7.4-10.4) H 06/20/24 05:36 Neut % (Auto) 81.0 % 06/20/24 05:36 Lymph % (Auto) 14.3 % 06/20/24 05:36 Hood % (Auto) 2.5 % 06/20/24 05:36 Eos % (Auto) 0.0 % 06/20/24 05:36 Baso % (Auto) 0.2 % 06/20/24 05:36 Neut # (Auto) 29.16 10^3/uL (1.8-7.7) H 06/20/24 05:36 Lymph # (Auto) 5.2 10^3/uL (0.8-4.8) H 06/20/24 05:36 Hood # (Auto) 0.9 10^3/uL (0.2-0.9) 06/20/24 05:36 Eos # (Auto) 0.0 10^3/uL (0.0-0.8) 06/20/24 05:36 Baso # (Auto) 0.1 10^3/uL (0.0-0.1) 06/20/24 05:36 Nucleated RBC % (auto) 0 % 06/20/24 05:36 Nucleated RBCs # 0.0 /100WBC 06/20/24 05:36 ESR 12 mm/hr (0-10) H 06/16/24 05:48 PT 28.60 SECONDS (12.1-14.9) H 06/20/24 05:36 INR 2.57 (0.8-1.2) H 06/20/24 05:36 APTT 39.8 SECONDS (23.9-36.7) H 06/11/24 03:16 D-Dimer 2.71 ug/mLFEU (0-0.59) H 06/16/24 18:33 Specimen Type Arterial 06/16/24 17:28 Sample Site Radial, left 06/16/24 17:28 ABG pH 7.43 (7.35-7.45) 06/16/24 17:28 ABG pCO2 35.3 mmHg (35-45) 06/16/24 17:28 ABG pO2 74.0 mmHg (80.0-100.0) L 06/16/24 17:28 ABG PO2/FiO2 Ratio 264 06/16/24 17:28 ABG HCO3 23.5 mmol/L (22-26) 06/16/24 17:28 ABG O2 Saturation 96.0 06/16/24 17:28 ABG Base Excess -0.4 mmol/L (-2.0-2.0) 06/16/24 17:28 Hema Test Pos 06/16/24 17:28 A-a O2 Gradient 10.4 mmHg (5-10) H 06/16/24 17:28 Hematocrit 35.0 % (42-52) L 06/16/24 17:28 Hgb O2 Saturation 94.2 % (95-100) L 06/16/24 17:28 Carboxyhemoglobin 0.8 %THgb (0.4-20.1) 06/16/24 17:28 Methemoglobin 1.1 % (0.4-1.5) 06/16/24 17:28 Total Hemoglobin 11.4 g/dL (14-18) L 06/16/24 17:28 Sodium 137.0 mmol/L (131-143) 06/16/24 17:28 Potassium 4.7 mmol/L (3.5-5.0) 06/16/24 17:28 Glucose 135.0 mg/dL (70-115) H 06/16/24 17:28 Ionized Calcium 1.3 mmol/L (1.1-1.4) 06/16/24 17:28 O2 Delivery Device Nc 06/16/24 17:28 O2 Liters/Min 2.0 % 06/16/24 17:28 FiO2 28.0 % 06/16/24 17:28 Catering Director ID Kelley 06/16/24 17:28 Sodium 133 mmol/L (136-145) L 06/20/24 05:36 Potassium 4.9 mmol/L (3.5-5.1) 06/20/24 05:36 Chloride 97 mmol/L (98-107) L 06/20/24 05:36 Carbon Dioxide 28 mmol/L (22-29) 06/20/24 05:36 Anion Gap 12.9 (5-19) 06/20/24 05:36 BUN 74 mg/dL (8-23) H 06/20/24 05:36 Creatinine 1.6 mg/dL (0.7-1.2) H 06/20/24 05:36 GFR Calculation Not Reportable 06/20/24 05:36 Glucose 238 mg/dL (65-115) H 06/20/24 05:36 POC Glucose 262 mg/dL (70-110) H 06/20/24 11:21 Calculated Osmolality 306 mOsm/kg (285-295) H 06/20/24 05:36 Lactic Acid 2.3 mmol/L (0.5-2.2) H 06/11/24 03:16 Lactic Acid (Sepsis) 2.8 mmol/L (0.5-2.2) H 06/11/24 09:22 Lactate Cancelled 06/11/24 03:16 Uric Acid 5.1 mg/dL (3.4-7.0) 06/16/24 18:33 Calcium 8.4 mg/dL (8.5-10.5) L 06/20/24 05:36 Magnesium 2.2 mg/dL (1.7-2.3) 06/12/24 05:27 Total Bilirubin 0.4 mg/dL (0.15-1.2) 06/20/24 05:36 AST 15 U/L (0-40) 06/20/24 05:36 ALT 56 U/L (0-41) H 06/20/24 05:36 Alkaline Phosphatase 102 U/L (40-130) 06/20/24 05:36 Lactate Dehydrogenase 239 U/L (135-225) H 06/16/24 15:14 Creatine Kinase 35 U/L (39-308) L 06/16/24 18:33 Troponin T Baseline 22 ng/L (0-15) H 06/16/24 18:33 Troponin T 120 Minute 22.15 ng/L (0-15) H 06/16/24 21:17 Delta Troponin T 0.15 ABS# (0-10) 06/16/24 21:17 Troponin T Hi Sens 6Hr 21.47 ng/L (0-15) H 06/17/24 00:42 Troponin T Hi Sens 6Hr Delta -0.53 ng/L (0-12) L 06/17/24 00:42 C-Reactive Protein 5.4 mg/L (0.0-4.9) H 06/16/24 18:33 NT-Pro-B Natriuret Pep 3507 pg/mL (0-450) H 06/16/24 18:33 Total Protein 5.0 g/dL (6.6-8.7) L 06/20/24 05:36 Albumin 2.9 g/dL (3.5-5.2) L 06/20/24 05:36 Globulin 2.1 g/dL (1.3-4.6) 06/20/24 05:36 Procalcitonin 0.46 ng/mL (0-0.5) 06/11/24 03:16 Urine Color Dark yellow (Yellow) A 06/11/24 04:00 Urine Appearance Clear (CLEAR) 06/11/24 04:00 Urine pH 5 (5-7) 06/11/24 04:00 Ur Specific Kemp 1.018 (1.005-1.030) 06/11/24 04:00 Urine Protein Trace (Negative) 06/11/24 04:00 Urine Glucose (UA) Norm (Normal) 06/11/24 04:00 Urine Ketones Trace (Negative) H 06/11/24 04:00 Urine Blood Neg (Negative) 06/11/24 04:00 Urine Nitrate Negative (Negative) 06/11/24 04:00 Urine Bilirubin Neg (Negative) 06/11/24 04:00 Urine Urobilinogen 1.0 mg/dL (Negative) 06/11/24 04:00 Ur Leukocyte Esterase Trace (Negative) 06/11/24 04:00 Urine RBC 0-2 /hpf (0-2) 06/11/24 04:00 Urine WBC 6-10 /hpf (0-5) 06/11/24 04:00 Ur Squamous Epith Cells 0-4 /hpf (0-5) H 06/11/24 04:00 Amorphous Sediment Not Reportable 06/11/24 04:00 Urine Bacteria None /hpf (NONE) 06/11/24 04:00 Hyaline Casts 39.70 /lpf 06/11/24 04:00 Nasal MRSA (PCR) Not detected (Negative) 06/16/24 19:03 Adenovirus (PCR) Not detected (NOT DETECT) 06/11/24 12:00 C. pneumoniae DNA (PCR) Not detected (NOT DETECT) 06/11/24 12:00 Coronavirus (PCR) Negative (Negative) 06/11/24 02:57 Coronavirus 229E (PCR) Not detected (NOT DETECT) 06/11/24 12:00 Human Metapneumovir PCR Not detected (NOT DETECT) 06/11/24 12:00 Influenza A (H1) PCR Not detected (NOT DETECT) 06/11/24 12:00 Influenza A (PCR) Negative (Negative) 06/11/24 02:57 Influ A (H1/09) PCR Not detected (NOT DETECT) 06/11/24 12:00 Influenza A (H3) PCR Not detected (NOT DETECT) 06/11/24 12:00 Influenza Type A (PCR) Not detected (NOT DETECT) 06/11/24 12:00 Influenza Type B (PCR) Not detected (NOT DETECT) 06/11/24 12:00 M. pneumoniae (PCR) Not detected (NOT DETECT) 06/11/24 12:00 Parainfluenza 1 (PCR) Not detected (NOT DETECT) 06/11/24 12:00 Parainfluenza 2 (PCR) Not detected (NOT DETECT) 06/11/24 12:00 Parainfluenza 3 (PCR) Not detected (NOT DETECT) 06/11/24 12:00 Parainfluenza 4 (PCR) Not detected (NOT DETECT) 06/11/24 12:00 RSV (PCR) Negative (Negative) 06/11/24 02:57 RSV Type A (PCR) Not detected (NOT DETECT) 06/11/24 12:00 RSV Type B (PCR) Not detected (NOT DETECT) 06/11/24 12:00 Entero/Rhino (PCR) Not detected (NOT DETECT) 06/11/24 12:00 SARS-CoV-2 (PCR) Not detected (NOT DETECT) 06/11/24 12:00 SARS-CoV-2 Ag (Rapid) negative (Negative) 06/20/24 13:23 Beta-(1,3)-D-Glucan 102 pg/ml 06/17/24 00:42 B-(1,3)-D-Glucan Intrp Positive (Negative) A 06/17/24 00:42 A&P Assessment and plan (1) PCP (pneumocystis carinii pneumonia): 84-year-old male with multiple comorbidities as listed above, history of COPD chronically on home O2. History of recurrent bacterial pneumonias, currently on treatment with meropenem Most recent respiratory cultures revealing Acinetobacter baumanii. Currently patient does not have any gross consolidation on CT imaging. Discussed extensively with him that Acinetobacter may represent colonization given lack of consolidation on CT. Patient has previously had cavitary pneumonia related to Pseudomonas aeruginosa in May 2023. Cavitary lesion is currently resolved on most recent chest CT. He does have a pattern of bilateral nonspecific groundglass opacities which appear to have worsened compared to earlier this year. Per radiology results, this could represent NSIP versus atypical inflammatory or infectious process Serum Fungitell was performed as a screening and returned positive at 102. Pending pneumocystis PCR expected to be available early next week. Pending histoplasma antigen, Coccidioides serology Patient reports that he has taken atovaquone in the past, does not recall the indication whether this was prophylaxis for treatment dosing. Given his CLL, impaired lymphocyte response, patient would be considered higher than average risk for pneumocystis pneumonia. Given nonspecific CT findings, elevated beta glucan, cannot conclusively rule out PCP pneumonia at this time. Presumptive course of atovaquone 750 mg p.o. twice daily may be started over the next 21 days. We will follow-up patient's pending PCP PCR as an outpatient and decide whether to continue atovaquone after results are available. Stable for discharge from infectious disease standpoint currently. Patient is on supplemental O2 at 2 L/min which is his usual baseline. Consult Attestations 2 Medical Necessity Statement: Per admitting Coding Level of Care Code Acute Code for Chg Fwd High MDM includes number and complexity of problems actively addressed during encounter, amount and/or complexity of data reviewed/ordered and described risk of complication, morbidity or mortality of management as documented Diagnoses PCP (pneumocystis carinii pneumonia) B59
== END 2024-06-20 15:30 | disposition skilled nursing facility (03) | DRG 177 ==
LOC: ER 05:53 → MEDSURG 06:08
PROVIDERS: Internal Medicine; Admitting Provider Internal Medicine; Emergency Provider Emergency Medicine; PCP Family Medicine; Visit Provider Student in an Organized Health Care Education/Training Program
DX: J15.61 Pneumonia due to Acinetobacter baumannii (principal); I50.33 Acute on chronic diastolic (congestive) heart failure; J44.0 Chronic obstructive pulmonary disease with (acute) lower respiratory infection; S32.029A Unspecified fracture of second lumbar vertebra, initial encounter for closed fracture; I13.0 Hypertensive heart and chronic kidney disease with heart failure and stage 1 through stage 4 chronic kidney disease, or unspecified chronic kidney disease; N18.4 Chronic kidney disease, stage 4 (severe); N17.9 Acute kidney failure, unspecified; C91.10 Chronic lymphocytic leukemia of B-cell type not having achieved remission; K86.2 Cyst of pancreas; J84.9 Interstitial pulmonary disease, unspecified; J44.1 Chronic obstructive pulmonary disease with (acute) exacerbation; B59 Pneumocystosis; I48.0 Paroxysmal atrial fibrillation; E11.22 Type 2 diabetes mellitus with diabetic chronic kidney disease; F32.9 Major depressive disorder, single episode, unspecified; E87.5 Hyperkalemia; R09.02 Hypoxemia; M10.9 Gout, unspecified; E78.5 Hyperlipidemia, unspecified; K21.9 Gastro-esophageal reflux disease without esophagitis; N40.0 Benign prostatic hyperplasia without lower urinary tract symptoms; R79.1 Abnormal coagulation profile; E86.0 Dehydration; Z79.01 Long term (current) use of anticoagulants; Z87.01 Personal history of pneumonia (recurrent); W19.XXXA Unspecified fall, initial encounter; Y92.009 Unspecified place in unspecified non-institutional (private) residence as the place of occurrence of the external cause; Z79.84 Long term (current) use of oral hypoglycemic drugs; Z99.81 Dependence on supplemental oxygen; Z87.891 Personal history of nicotine dependence
CPT/HCPCS: 0241U; 36415; 36416; 36600; 51702; 51798; 71045; 71250; 72131; 72148; 73502; 74230; 80048; 80051; 80053; 81001; 82330; 82550; 82805; 82962; 83605; 83615; 83735; 83880; 84132; 84145; 84484; 84550; 85025; 85378; 85610; 85651; 85730; 86140; 87040; 87070; 87077; 87150; 87186; 87205; 87385; 87426; 87449; 87486; 87581; 87633; 87798; 92611; 93005; 93308; 93971; 94640; 94664; 96372; 96374; 97116; 97161; 97530; 97760; 99285; G0378; J0692; J1815; J2185; J2270; J2405; J2919; J3490; J7030; J7613; J7614; J7626; J7644; J7799; L0456; Q0144

== ENCOUNTER → 2024-06-24 09:14 | Outpatient (BNVA) | payer MEDICARE, BC, SELFPAY | PROVIDERS: PCP Family Medicine; Visit Provider Orthopaedic Surgery | DX: Z01.818 Encounter for other preprocedural examination (principal); S32.020A Wedge compression fracture of second lumbar vertebra, initial encounter for closed fracture; X58.XXXD Exposure to other specified factors, subsequent encounter; E11.9 Type 2 diabetes mellitus without complications | CPT/HCPCS: 36415; 72100; 80053; 81001; 83036; 85025; 99214 ==

== ENCOUNTER → 2024-07-10 10:11 | Outpatient (BNVA) | payer MEDICARE, BC, SELFPAY | PROVIDERS: PCP Family Medicine; Visit Provider Family Medicine | DX: N18.4 Chronic kidney disease, stage 4 (severe) (principal) | CPT/HCPCS: 80053; 85025 ==

== ENCOUNTER 2024-07-14 07:14 | Day surgery (SDC) | payer MEDICARE, BC, SELFPAY ==
[2024-07-14] VITALS (11 sets, daily range): BP systolic 87–125; BP diastolic 56–73; PULSE 86–139; RESP 16–20; TEMP 36.1–36.4; O2SAT 93–98; BMI 25.8
[2024-07-14 07:52] LABS: Glucose Point of Care 161 mg/dL (70-110)
[2024-07-14] MEDS: sodium chloride 0.9% 1,000 ML 30 ML IV (08:05)
--- NOTE | 2024-07-14 08:43 | W.PM.OPSUD ---
Surgery/Procedure H&P Update DATE OF PROCEDURE: July 14, 2024 DATE H&P PERFORMED: 07/10/24 H&P UPDATE INFORMATION: I have reviewed H&P completed within last 30 days, I have examined patient prior to procedure and No changes to prior documentation PREOP DIAGNOSIS: L2 wedge osteoporotic truamatic compression fracture PLANNED PROCEDURE: Operation Date: 07/14/24 10:40 Proposed Procedures p Kyphoplasty(Not Applicable) - Malcolm Harrell DO
--- NOTE | 2024-07-14 08:48 | P.ANESASSM_ITS ---
Pre-Anesthetic Assessment Height/Weight: Height 1.78 m Weight 81.647 kg Temp Pulse Resp BP Pulse Ox O2 Del Method O2 Flow Rate 97 F L 100 17 87/62 94 Nasal Cannula 2 07/14/24 07:38 07/14/24 07:38 07/14/24 07:38 07/14/24 07:38 07/14/24 07:38 07/14/24 07:46 07/14/24 07:46 Preop Diagnosis: L2 wedge osteoporotic truamatic compression fracture Operation Date: 07/14/24 10:40 Proposed Procedures p Kyphoplasty(Not Applicable) - Malcolm Harrell DO Familial anesthetic complications: post op delirium Was Beta Austin taken within 24 hours: N/A Was Clonidine taken within 24 hours: N/A Last intake: Intake Last Liquid Date 07/13/24 Last Liquid Time 21:00 Last Solid Date 07/13/24 Last Solid Time 21:00 Social No alcohol and No tobacco (h/o smoking) Exam alert and oriented x 3 irregular Airway Submandibular: within normal limits Cervical ROM: within normal limits Mallampati: Class II Dentition: chipped Pulmonary Chronic Obstructive Pulmonary Disease (O2 2L) CV/HEM Atrial Fibrillation and Hypertension CLL, anticoagulation Chronic Renal Insufficiency GI Gastroesophageal Reflux Disease Musc/skel Lower Back Pain Neuropsych Neuropathy Medications/Allergies Home Medications Medication Instructions Recorded Confirmed Last Taken Type atorvastatin 20 mg tablet 20 mg PO BEDTIME 12/30/23 07/10/24 07/10/24 History linagliptin 5 mg tablet (Tradjenta) 5 mg PO BEDTIME 12/30/23 07/10/24 07/10/24 History formoterol fumarate 20 mcg/2 mL 2 ml inhalation BID #120 mL 02/08/24 07/10/24 04/11/24 Rx solution for nebulization (Perforomist) revefenacin 175 mcg/3 mL solution 175 mcg (3 mL) inhalation DAILY 02/26/24 07/10/24 04/11/24 Rx for nebulization (Nicolepejany) COPD J44.9 #90 mL furosemide 40 mg tablet 40 mg PO DAILY #90 tabs 03/14/24 07/10/24 07/10/24 Rx famotidine 20 mg tablet 20 mg PO BID GERD #60 tabs 04/04/24 07/10/24 07/10/24 Rx allopurinol 300 mg tablet 150 mg PO QAM 04/11/24 07/10/24 07/10/24 History albuterol sulfate 90 mcg/actuation 2 puff inhalation Q4H PRN 06/03/24 07/10/24 07/10/24 Rx aerosol inhaler Shortness Of Breath #8.5 grams citalopram 40 mg tablet 40 mg PO DAILY #90 tabs 06/09/24 07/10/24 07/10/24 Rx hydrocodone 5 mg-acetaminophen 325 1 tab PO Q6H PRN pain #25 tabs 06/09/24 07/10/24 Unknown Rx mg tablet tamsulosin 0.4 mg capsule (Flomax) 0.4 mg PO BEDTIME #90 caps 06/16/24 07/10/24 07/10/24 Rx apixaban 5 mg tablet (Eliquis) 5 mg PO BID #60 tabs 06/20/24 07/10/24 07/09/24 Rx budesonide 0.5 mg/2 mL suspension 0.5 mg (2 mL) inhalation 06/20/24 07/10/24 Unknown Rx for nebulization BID.RESPIRATORY 30 days #120 mL ipratropium bromide 0.02 % 0.5 mg (2.5 mL) inhalation 06/20/24 07/10/24 Unknown Rx solution for inhalation Q6H.RESP 30 days #300 mL levalbuterol HCl 0.63 mg/3 mL 0.63 mg (3 mL) inhalation Q6H.RESP 06/20/24 07/10/24 Unknown Rx solution for nebulization 30 days #360 mL diltiazem HCl 240 mg capsule,24 240 mg PO DAILY #90 caps 07/03/24 07/10/24 07/10/24 Rx hr,extended release olmesartan 5 mg tablet 5 mg PO DAILY 07/10/24 07/10/24 07/10/24 History Allergies Allergy/AdvReac Type Severity Reaction Status Date / Time No Known Allergies Allergy Verified 07/10/24 09:11 Current Medications Generic Name Dose Route Start Last Admin Trade Name Freq PRN Reason Stop Dose Admin Sodium Chloride 1,000 mls @ 30 mls/hr 07/14/24 07:30 07/14/24 08:05 Sodium Chloride 0.9% IV 07/15/24 07:29 30 mls/hr .Q24H MARCOS Administration PFSH Anesthesia Medical History CKD (chronic kidney disease), 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 Bennett - 11/2021 at [place], [place] History of prostate surgery History of total knee replacement bilateral History of cholecystectomy Family History Other Cancer Hypertension Lung disease Denies family history of Diabetes CAD (coronary artery disease) Clotting disorder Dementia Hyperlipidemia Psychiatric illness Chronic kidney disease (CKD) Suicide Anesthesia complication Bleeding disorder Stroke Social History Smoking and tobacco/nicotine status: former use of tobacco/nicotine Quit status (tobacco/nicotine): has quit using Year quit tobacco: 2009 - 1PPD x 50 Years Second hand smoke exposure: No Alcohol intake: current Substance/Drug Use: never Lives independently: Yes Household members: spouse Marital status: Current occupational status: retired Do you think of yourself as: Straight/Heterosexual Current gender identity: Male Data Anesthesia Cardiac Studies: Echocardiogram 12/29/23 Echocardiogram Limited Views 06/16/24
[2024-07-14] MEDS: ceFAZolin 2,000 mg SDV 2000 MG IVP (09:06)
[2024-07-14] MEDS: lidocaine-epi 1% 20 mL INJ INJECTION (09:40)
--- NOTE | 2024-07-14 10:07 | XR_ITS ---
WS: [id number] INTRAOPERATIVE TECHNIQUE: Spot fluoroscopic images for intraoperative purposes. FLUOROSCOPY TIME: 51.7 seconds CLINICAL INFORMATION: or pics FINDINGS: Images obtained for intraoperative kyphoplasty purposes. XR/XR lumbar spine 2-3V* [id number] IMPRESSION: Images obtained for intraoperative purposes.
--- NOTE | 2024-07-14 10:21 | PM.OP ---
Operative Report Date of procedure: July 14, 2024 Pre-op diagnosis: L2 wedge osteoporotic compression fracture Post-op diagnosis: same Procedure done: L2 kyphoplasty Surgeon: Malcolm Harrell DO Estimated blood loss (mL): 5 Procedure: L2 kyphoplasty Patient brought the operative suite after an Gonasi was placed in prone position. All areas impingement well-padded. Biplanar fluoroscopy was brought in. The L2 levels identified. The skin incision was made lateral to the pedicle bilaterally. Awl was inserted bilaterally drill was inserted bilaterally and then balloon was inserted bilaterally. Again AP and lateral fluoroscopy ensured that the everything is in good position. Balloons were inflated deflated. And then cement was injected again using biplanar fluoroscopy. Final x-rays showed good fill of the vertebrae. No leakage. Wounds were irrigated and closed with nylon suture.
[2024-07-14] MEDS: HYDROcodone-acetaminophen 5-325 mg Tablet 1 TAB PO (10:53)
--- NOTE | 2024-07-14 12:13 | ANE.PACU2 ---
Inpatient post-anesthesia follow up: Airway intact: Yes Vital signs: Temperature 97.4 F Pulse Rate 121 Respiratory Rate 18 Blood Pressure 121/70 Pulse Oximetry 93 Oxygen Delivery Me thod Room Air Oxygen Flow Rate 2 Fraction of Inspir ed Oxygen Hydration adequate: Yes Nausea and vomiting: No Pain level: 2 Mental status: Baseline
== END 2024-07-14 11:24 | disposition home or self-care (01) ==
PROVIDERS: PCP Family Medicine; Visit Provider Orthopaedic Surgery
PROC: (CPT 22514; principal; 2024-07-14 10:30)
DX: S32.020A Wedge compression fracture of second lumbar vertebra, initial encounter for closed fracture (principal); X58.XXXA Exposure to other specified factors, initial encounter; J44.9 Chronic obstructive pulmonary disease, unspecified; Z99.81 Dependence on supplemental oxygen; I48.91 Unspecified atrial fibrillation; Z79.01 Long term (current) use of anticoagulants; K21.9 Gastro-esophageal reflux disease without esophagitis; E11.22 Type 2 diabetes mellitus with diabetic chronic kidney disease; I13.0 Hypertensive heart and chronic kidney disease with heart failure and stage 1 through stage 4 chronic kidney disease, or unspecified chronic kidney disease; N18.4 Chronic kidney disease, stage 4 (severe); I50.30 Unspecified diastolic (congestive) heart failure; E78.5 Hyperlipidemia, unspecified; Z87.891 Personal history of nicotine dependence; E11.40 Type 2 diabetes mellitus with diabetic neuropathy, unspecified
CPT/HCPCS: 22514; 36416; 72100; 76000; 82962; J0690; J1100; J2405; J2704; J2710; J3010; J3490; J7030

== ENCOUNTER → 2024-07-29 14:27 | Outpatient (BNVA) | payer MEDICARE, BC, SELFPAY | PROVIDERS: PCP Family Medicine; Visit Provider Orthopaedic Surgery | DX: M54.9 Dorsalgia, unspecified (principal); S32.029A Unspecified fracture of second lumbar vertebra, initial encounter for closed fracture; X58.XXXA Exposure to other specified factors, initial encounter | CPT/HCPCS: 72100; 99024 ==

== ENCOUNTER → 2024-09-08 13:54 | Outpatient (BNVA) | payer MEDICARE, BC, SELFPAY | PROVIDERS: PCP Family Medicine; Visit Provider Family Medicine | DX: J18.9 Pneumonia, unspecified organism (principal); N18.4 Chronic kidney disease, stage 4 (severe); N18.9 Chronic kidney disease, unspecified; E11.22 Type 2 diabetes mellitus with diabetic chronic kidney disease; C91.10 Chronic lymphocytic leukemia of B-cell type not having achieved remission; J84.10 Pulmonary fibrosis, unspecified | CPT/HCPCS: 71046; 80069; 82043; 82306; 82310; 83970; 85025 ==

== ENCOUNTER → 2024-09-11 13:14 | Outpatient (BNVA) | payer MEDICARE, BC, SELFPAY | PROVIDERS: PCP Family Medicine; Visit Provider Orthopaedic Surgery | DX: S32.029A Unspecified fracture of second lumbar vertebra, initial encounter for closed fracture (principal); X58.XXXA Exposure to other specified factors, initial encounter | CPT/HCPCS: 72100; 99213 ==

== ENCOUNTER → 2024-09-23 15:05 | Outpatient (BNVA) | payer MEDICARE, BC, SELFPAY | PROVIDERS: PCP Family Medicine; Visit Provider Family Medicine | DX: R05.8 Other specified cough (principal) | CPT/HCPCS: 87070; 87077; 87184; 87205 ==

== ENCOUNTER → 2024-10-13 09:43 | Outpatient (BNVA) | payer MEDICARE, BC, SELFPAY | PROVIDERS: PCP Family Medicine; Referring Provider Orthopaedic Surgery; Visit Provider Anesthesiology Pain Medicine | DX: M54.9 Dorsalgia, unspecified (principal); M47.816 Spondylosis without myelopathy or radiculopathy, lumbar region | CPT/HCPCS: 99204 ==

== ENCOUNTER → 2024-10-21 14:33 | Outpatient (BNVA) | payer MEDICARE, BC, SELFPAY | PROVIDERS: PCP Family Medicine; Visit Provider Anesthesiology Pain Medicine | DX: M47.816 Spondylosis without myelopathy or radiculopathy, lumbar region (principal); M54.9 Dorsalgia, unspecified; Z87.891 Personal history of nicotine dependence | CPT/HCPCS: 36416; 64493; 64494; 64495; 82962; J3490; J9999 ==

== ENCOUNTER → 2024-11-04 09:41 | Outpatient (BNVA) | payer MEDICARE, BC, SELFPAY | PROVIDERS: PCP Family Medicine; Visit Provider Anesthesiology Pain Medicine | DX: M54.9 Dorsalgia, unspecified (principal); M47.816 Spondylosis without myelopathy or radiculopathy, lumbar region | CPT/HCPCS: 99214 ==

== ENCOUNTER 2024-11-10 19:04 | Emergency (ER) | payer MEDICARE, BC, SELFPAY ==
[2024-11-10 19:06] VITALS: BP 111/60; PULSE 92; RESP 22; TEMP 36.8; O2SAT 91; BMI 25.0
--- NOTE | 2024-11-10 19:13 | XRR_ITS ---
PROCEDURE INFORMATION: Exam: XR Chest Exam date and time: 11/10/2024 7:14 PM Age: 84 years old Clinical indication: Shortness of breath; Additional info: SOB TECHNIQUE: Imaging protocol: Radiologic exam of the chest. Views: 1 view. COMPARISON: CR XR chest 2V* [id number] 09/08/2024 1:56 PM FINDINGS: Lungs: Localized atelectatic or fibrotic changes in the lung bases. Chronic upper lobe emphysema. No acute infiltrate. Pleural spaces: Unremarkable. No pleural effusion. No pneumothorax. Heart/Mediastinum: Unremarkable. No cardiomegaly. Bones/joints: Unremarkable. XR/XR chest 1V portable [id number] IMPRESSION: 1. Basilar fibrosis or atelectasis 2. Emphysema.
[2024-11-10 19:35] LABS: Basophils # 0.1 10^3/uL (0.0-0.1); Basophils % 0.2 %; Eosinophils # 0.8 10^3/uL (0.0-0.8); Eosinophils % 3.7 %; Hematocrit 38.2 % (37-53); Lymphocytes # 3.5 10^3/uL (0.8-4.8); Lymphocytes % 16.5 %; Mean Corpuscular HGB Conc 31.2 g/dL (30-55); Mean Corpuscular Hemoglobin 29.4 pg (27-33); Mean Corpuscular Volume 94.3 fl (82-101); Mean Platelet Volume 9.6 fL (7.4-10.4); Monocytes % 4.8 %; Neutrophils # 15.85 10^3/uL (1.8-7.7); Neutrophils % 74.4 %; Nucleated Red Blood Cells % 0 %; Platelet Count 280 10^3/cmm (157-399); Red Blood Count 4.05 10^6/uL (3.85-5.65); Red Cell Distribution Width 13.7 % (12.1-15.1); White Blood Count 21.34 10^3/uL (3.29-11.43)
[2024-11-10 19:51] LABS: Alanine Aminotransferase 8 U/L (0-41); Albumin Level 3.6 g/dL (3.5-5.2); Alkaline Phosphatase 137 U/L (40-130); Anion Gap 18.8 (5-19); Aspartate Amino Transferase 10 U/L (0-40); Blood Urea Nitrogen 28 mg/dL (8-23); Calcium 9.4 mg/dL (8.5-10.5); Carbon Dioxide 24 mmol/L (22-29); Chloride 99 mmol/L (98-107); Creatinine Clr Calc Pharmacy 35.7145; Glucose 131 mg/dL (65-115); Osmolality Calculated 291 mOsm/kg (285-295); Potassium 4.8 mmol/L (3.5-5.1); Sodium 137 mmol/L (136-145); Total Bilirubin 0.4 mg/dL (0.15-1.2); Total Protein 6.6 g/dL (6.6-8.7)
--- NOTE | 2024-11-10 20:05 | W.ED.SOB ---
HPI - SOB/Dyspnea General: Chief Complaint: Shortness of Breath/Dyspnea Stated Complaint: sob Time Seen by Provider: 11/10/24 19:06 History of Present Illness: HPI Narrative: 84-year-old male brought in due to shortness of breath via EMS. Patient reports has been having some increased shortness of breath over the last couple days. Has a history of COPD and is always on 3 L. Patient reports that he gets frequent pneumonias concerning might be get pneumonia. Patient received steroid and route via EMS. No fevers or chills. Associated symptoms: Deny chest pain or fever(s) Related Data Home Medications ?Medication ?Instructions ?Recorded ?Confirmed allopurinol 300 mg tablet 150 mg PO QAM 04/11/24 11/04/24 Previous Rx's ?Medication ?Instructions ?Recorded formoterol fumarate 20 mcg/2 mL 2 ml inhalation BID #120 mL 02/08/24 solution for nebulization (Perforomist) revefenacin 175 mcg/3 mL solution 175 mcg (3 mL) inhalation DAILY 02/26/24 for nebulization (Yupelri) COPD J44.9 #90 mL furosemide 40 mg tablet 40 mg PO DAILY #90 tabs 03/14/24 albuterol sulfate 90 mcg/actuation 2 puff inhalation Q4H PRN 06/03/24 aerosol inhaler Shortness Of Breath #8.5 grams citalopram 40 mg tablet 40 mg PO DAILY #90 tabs 06/09/24 tamsulosin 0.4 mg capsule (Flomax) 0.4 mg PO BEDTIME #90 caps 06/16/24 hydrocodone 5 mg-acetaminophen 325 1 - 2 tab PO .Q4-6H 10 days #40 08/04/24 mg tablet tabs clobetasol 0.05 % scalp solution 1 applic topical BID 2 weeks #50 mL 08/13/24 warfarin 2 mg tablet 2 mg PO DAILY #90 tabs 08/13/24 warfarin 3 mg tablet 3 mg PO DIRECTED #90 tabs 08/13/24 olmesartan 5 mg tablet 5 mg PO DAILY #90 tabs 08/25/24 linagliptin 5 mg tablet (Tradjenta) 5 mg PO BEDTIME #90 tabs 09/15/24 famotidine 20 mg tablet 20 mg PO BID GERD #60 tabs 09/16/24 levofloxacin 750 mg tablet 750 mg PO .every other day #3 tabs 03/23/25 diltiazem HCl 240 mg capsule,24 240 mg PO DAILY #90 caps 10/01/24 hr,extended release atorvastatin 20 mg tablet 20 mg PO BEDTIME #90 tabs 10/06/24 doxycycline monohydrate 100 mg 100 mg PO BID 7 days #14 caps 11/10/24 capsule prednisone 20 mg tablet 40 mg (2 x 20 mg) PO DAILY 3 days 11/10/24 #6 tabs Allergies Allergy/AdvReac Type Severity Reaction Status Date / Time No Known Allergies Allergy Verified 11/10/24 19:11 Review of Systems Const: Denies: fever(s) or chills Card: Denies: chest pain Resp: Reports: dyspnea, non-productive cough and wheezing Skin/Breast: Denies: rash or pruritus PFSH ED PFSH: Medical History CKD stage 3b, GFR 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 CLL (chronic lymphocytic leukemia) GERD (gastroesophageal reflux disease) Type 2 diabetes mellitus without complications Delirium Frontal lobe dementia Word finding difficulty Displaced fracture of right femoral neck Closed fracture of right hip Atrial fibrillation with rapid ventricular response Lymphocytosis Bradycardia Long-term (current) use of anticoagulants, INR goal 2.0-3.0 Dyslipidemia Edema leg COPD (chronic obstructive pulmonary disease) Atopic dermatitis, unspecified Gout, unspecified Orthopnea Essential (primary) hypertension Surgical History History of right hip replacement History of left hip replacement Dr. Bennett - 11/2021 at [place], [place] History of prostate surgery History of total knee replacement bilateral History of cholecystectomy Family History Other Cancer Hypertension Lung disease Denies family history of Diabetes CAD (coronary artery disease) Clotting disorder Dementia Hyperlipidemia Psychiatric illness Chronic kidney disease (CKD) Suicide Anesthesia complication Bleeding disorder Stroke Social History Smoking and tobacco/nicotine status: former use of tobacco/nicotine Quit status (tobacco/nicotine): has quit using Year quit tobacco: 2009 - PD x 50 Years Second hand smoke exposure: No Alcohol intake: current Substance/Drug Use: never Lives independently: Yes Household members: spouse Marital status: Current occupational status: retired Do you think of yourself as: Straight/Heterosexual Current gender identity: Male Physical Exam Const: COMMON NORMALS: no acute distress, patient oriented x3 and alert Resp: AUSCULTATION: wheezes and diminished lung sounds Cardio: COMMON NORMALS: regular rate and regular rhythm RATE: regular rate RHYTHM: regular rhythm Extremity: COMMON NORMALS: full ROM and capillary refill normal Neuro: COMMON NORMALS: patient oriented x3, moves all extremities and no focal motor deficits SENSORIUM/ORIENTATION: Yes alert Psych: COMMON NORMALS: mental status grossly normal, Normal thought process present, cooperative and normal affect THOUGHT PROCESS: Normal thought process present Course Vital Signs: Vital signs: Vital Signs Temperature 98.2 F 11/10/24 19:06 Pulse Rate 82 11/10/24 21:34 Respiratory Rate 18 11/10/24 21:34 Blood Pressure 119/56 11/10/24 21:34 Pulse Oximetry 92 11/10/24 21:34 Oxygen Delivery Nd thod Nasal Cannula 11/10/24 20:44 Oxygen Flow Rate 4 11/10/24 20:44 MDM - SOB/Dyspnea Medical Decision Making Patient's diagnostic studies were reviewed and interpreted by me. Patient does have a elevated white count. He felt significant better following a DuoNeb. X-ray does not show any pneumonia. Patient O2 was weaned back to his baseline and he maintained in the low 90s where he should be on oxygen. Patient is feeling a lot better. I will treat him for COPD exacerbation and questionable early pneumonia with doxycycline and prednisone. He should use his inhaler as prescribed. He should follow-up with a primary care provider in couple days. He is stable and discharged home Lab Data 11/10/24 19:27 11/10/24 19:27 Labs/Radiology: Radiology Impressions Chest X-Ray 11/10/24 19:13 IMPRESSION: 1. Basilar fibrosis or atelectasis 2. Emphysema. Laboratory Results WBC 21.34 10^3/uL (3.29-11.43) H 11/10/24 19:27 RBC 4.05 10^6/uL (3.85-5.65) 11/10/24 19:27 Hgb 11.90 g/dL (11.27-16.99) 11/10/24 19:27 Hct 38.2 % (37-53) 11/10/24 19: MCV 94.3 fl (82-101) 11/10/24 19: MCH 29.4 pg (27-33) 11/10/24 19: MCHC 31.2 g/dL (30-55) 11/10/24 19: RDW 13.7 % (12.1-15.1) 11/10/24 19: Plt Count 280 10^3/cmm (157-399) 11/10/24 19: MPV 9.6 fL (7.4-10.4) 11/10/24 19: Neut % (Auto) 74.4 % 11/10/24 19: Lymph % (Auto) 16.5 % 11/10/24 19: [place] % (Auto) 4.8 % 11/10/24 19: Eos % (Auto) 3.7 % 11/10/24 19: Baso % (Auto) 0.2 % 11/10/24 19: Neut # (Auto) 15.85 10^3/uL (1.8-7.7) H 11/10/24 19:27 Lymph # (Auto) 3.5 10^3/uL (0.8-4.8) 11/10/24 19:27 [place] # (Auto) 1.0 10^3/uL (0.2-0.9) H 11/10/24 19:27 Eos # (Auto) 0.8 10^3/uL (0.0-0.8) 11/10/24 19: Baso # (Auto) 0.1 10^3/uL (0.0-0.1) 11/10/24 19: Nucleated RBC % (auto) 0 % 11/10/24 19: Nucleated RBCs # 0.0 /100WBC 11/10/24 19: Sodium 137 mmol/L (136-145) 11/10/24 19: Potassium 4.8 mmol/L (3.5-5.1) 11/10/24 19: Chloride 99 mmol/L (98-107) 11/10/24 19: Carbon Dioxide 24 mmol/L (22-29) 11/10/24 19: Anion Gap 18.8 (5-19) 11/10/24 19:27 BUN 28 mg/dL (8-23) H 11/10/24 19:27 Creatinine 1.7 mg/dL (0.7-1.2) H 11/10/24 19:27 GFR Calculation Not Reportable 11/10/24 19:27 Glucose 131 mg/dL (65-115) H 11/10/24 19:27 Calculated Osmolality 291 mOsm/kg (285-295) 11/10/24 19:27 Calcium 9.4 mg/dL (8.5-10.5) 11/10/24 19:27 Total Bilirubin 0.4 mg/dL (0.15-1.2) 11/10/24 19:27 AST 10 U/L (0-40) 11/10/24 19: ALT 8 U/L (0-41) 11/10/24 19:27 Alkaline Phosphatase 137 U/L (40-130) H 11/10/24 19:27 Total Protein 6.6 g/dL (6.6-8.7) 11/10/24 19:27 Albumin 3.6 g/dL (3.5-5.2) 11/10/24 19:27 Globulin 3.0 g/dL (1.3-4.6) 11/10/24 19:27 All radiology interpretation(s) finalized by discharge Discharge Plan Discharge Patient Disposition: Home Clinical Impression: COPD (chronic obstructive pulmonary disease) Qualifiers: COPD type: unspecified COPD Qualified Code(s): J44.9 - Chronic obstructive pulmonary disease, unspecified Condition: Stable Prescriptions: New prednisone 20 mg tablet 40 mg PO DAILY 3 Days Qty: 6 0RF doxycycline monohydrate 100 mg capsule 100 mg PO BID 7 Days Qty: 14 0RF No Action warfarin 3 mg tablet 3 mg PO DIRECTED Qty: 90 3RF Protocol: Dose Management Condition: Sunday Dose/Route: 3 mg Instruction: 1 x 3 mg tablet Condition: Sunday Dose/Route: 3 mg Instruction: 1 x 3 mg tablet Condition: Sunday Dose/Route: 3 mg Instruction: 1 x 3 mg tablet Condition: Sunday Dose/Route: 3 mg Instruction: 1 x 3 mg tablet Condition: Dose/Route: 3 mg Instruction: 1 x 3 mg tablet Condition: Sunday Dose/Route: 3 mg Instruction: 1 x 3 mg tablet Condition: Sunday Dose/Route: 3 mg Instruction: 1 x 3 mg tablet Protocol Text: Adjustment Start Date: Sunday11/10/24 INR Value: 2.6 INR Date: 11/10/24 Recheck Date: 11/17/24 Rx Instructions: Sunday only warfarin 2 mg tablet 2 mg PO DAILY Qty: 90 1RF Protocol: Dose Management Condition: Sunday Dose/Route: 3 mg Instruction: 1 x 3 mg tablet Condition: Sunday Dose/Route: 3 mg Instruction: 1 x 3 mg tablet Condition: Sunday Dose/Route: 3 mg Instruction: 1 x 3 mg tablet Condition: Sunday Dose/Route: 3 mg Instruction: 1 x 3 mg tablet Condition: Dose/Route: 3 mg Instruction: 1 x 3 mg tablet Condition: Sunday Dose/Route: 3 mg Instruction: 1 x 3 mg tablet Condition: Sunday Dose/Route: 3 mg Instruction: 1 x 3 mg tablet Protocol Text: Adjustment Start Date: Sunday11/10/24 INR Value: 2.6 INR Date: 11/10/24 Recheck Date: 11/17/24 Rx Instructions: every day except sunday clobetasol 0.05 % solution 1 applic topical BID 14 Days Qty: 50 2RF furosemide 40 mg tablet 40 mg PO DAILY Qty: 90 3RF formoterol fumarate [Perforomist] 20 mcg/2 mL solution for nebulization 2 ml inhalation BID Qty: 120 6RF Yupelri 175 mcg/3 mL solution for nebulization 175 mcg inhalation DAILY Qty: 90 6RF albuterol sulfate 90 mcg/actuation HFA aerosol inhaler 2 puff inhalation Q4H PRN (Reason: Shortness Of Breath) Qty: 8.5 6RF citalopram 40 mg tablet 40 mg PO DAILY Qty: 90 1RF tamsulosin [Flomax] 0.4 mg capsule 0.4 mg PO BEDTIME Qty: 90 1RF hydrocodone-acetaminophen 5-325 mg tablet 1 - 2 tab PO .Q4-6H 10 Days Qty: 40 0RF olmesartan 5 mg tablet 5 mg PO DAILY Qty: 90 1RF Tradjenta 5 mg tablet 5 mg PO BEDTIME Qty: 90 1RF famotidine 20 mg tablet 20 mg PO BID Qty: 60 3RF levofloxacin 750 mg tablet 750 mg PO .every other day Qty: 3 0RF diltiazem HCl 240 mg capsule,extended release 24 hr 240 mg PO DAILY Qty: 90 1RF atorvastatin 20 mg tablet 20 mg PO BEDTIME Qty: 90 0RF allopurinol 300 mg tablet 150 mg PO QAM Discharge Orders: Discharge ED (Routine); Ordered 11/10/24 Ordered By: Remi Jorgensen Referrals: Autumn Pierre DO [Primary Care Provider, Family Practice] Discharge Diet: Usual diet Discharge Activity: Increase activity as tolerated Patient Instructions: COPD - Emphysema, Chronic Bronchitis (DC), Opioid Safety, Pain Management Activity Restrictions/Additional Instructions: Please take the prednisone and doxycycline starting tomorrow as prescribed. Please use your inhalers as prescribed. Follow-up with your primary care provider in a couple days for recheck. Print Language: Lithuanian Coding Level of Care Code ED Rental Agent for 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
[2024-11-10 20:11] VITALS: BP 112/51; PULSE 79; RESP 16; O2SAT 91
[2024-11-10 20:35] VITALS: PULSE 79; RESP 18; O2SAT 97
[2024-11-10] MEDS: ipratropium-albuterol 3 mL Neb INHALATION (20:40)
[2024-11-10 20:44] VITALS: PULSE 79; RESP 18; O2SAT 92
[2024-11-10] MEDS: doxycycline 100 mg Tablet PO (21:18)
[2024-11-10 21:34] VITALS: BP 119/56; PULSE 82; RESP 18; O2SAT 92
== END 2024-11-10 21:36 | disposition home or self-care (01) ==
PROVIDERS: Emergency Provider Student in an Organized Health Care Education/Training Program; PCP Family Medicine
DX: J44.9 Chronic obstructive pulmonary disease, unspecified (principal); Z79.01 Long term (current) use of anticoagulants; Z87.891 Personal history of nicotine dependence; E11.22 Type 2 diabetes mellitus with diabetic chronic kidney disease; I12.9 Hypertensive chronic kidney disease with stage 1 through stage 4 chronic kidney disease, or unspecified chronic kidney disease; N18.32 Chronic kidney disease, stage 3b; E78.5 Hyperlipidemia, unspecified
CPT/HCPCS: 36415; 71045; 80053; 85025; 94640; 99284; J9999

== ENCOUNTER → 2024-11-13 10:40 | Outpatient (BNVA) | payer MEDICARE, BC, SELFPAY | PROVIDERS: PCP Family Medicine; Visit Provider Orthopaedic Surgery | DX: S32.020D Wedge compression fracture of second lumbar vertebra, subsequent encounter for fracture with routine healing (principal); X58.XXXD Exposure to other specified factors, subsequent encounter | CPT/HCPCS: 72100; 99213 ==

== ENCOUNTER → 2024-12-04 10:47 | Outpatient (BNVA) | payer MEDICARE, BC, SELFPAY | PROVIDERS: PCP Family Medicine; Visit Provider Nurse Practitioner Family | DX: L29.89 Other pruritus (principal); L82.1 Other seborrheic keratosis; D22.5 Melanocytic nevi of trunk; L81.4 Other melanin hyperpigmentation; L30.9 Dermatitis, unspecified | CPT/HCPCS: 11104; 99203 ==

== ENCOUNTER → 2024-12-16 15:24 | Outpatient (BNVA) | payer MEDICARE, BC, SELFPAY | PROVIDERS: PCP Family Medicine; Visit Provider Nurse Practitioner Family | DX: L21.8 Other seborrheic dermatitis (principal) | CPT/HCPCS: 99213 ==

== ENCOUNTER → 2024-12-23 15:09 | Outpatient (BNVA) | payer MEDICARE, BC, SELFPAY | PROVIDERS: PCP Family Medicine; Visit Provider Family Medicine | DX: E11.9 Type 2 diabetes mellitus without complications (principal) | CPT/HCPCS: 80053; 83036 ==

== ENCOUNTER 2025-01-15 14:43 | Oncology outpatient (recurring) (ONCR) | payer MEDICARE, BC, SELFPAY ==
[2025-01-15 15:02] LABS: Hematocrit 34.4 % (37-53); Hemoglobin 10.80 g/dL (11.27-16.99); Mean Corpuscular HGB Conc 31.4 g/dL (30-55); Mean Corpuscular Hemoglobin 29.5 pg (27-33); Mean Corpuscular Volume 94.0 fl (82-101); Nucleated Red Blood Cells % 0 %; Platelet Count 222 10^3/cmm (157-399); Red Blood Count 3.66 10^6/uL (3.85-5.65); White Blood Count 13.37 10^3/uL (3.29-11.43)
[2025-01-15 15:20] LABS: Alanine Aminotransferase 9 U/L (0-41); Albumin Level 3.7 g/dL (3.5-5.2); Alkaline Phosphatase 129 U/L (40-130); Anion Gap 13.8 (5-19); Aspartate Amino Transferase 12 U/L (0-40); Blood Urea Nitrogen 23 mg/dL (8-23); Calcium 9.0 mg/dL (8.5-10.5); Carbon Dioxide 29 mmol/L (22-29); Chloride 106 mmol/L (98-107); Globulin 2.5 g/dL (1.3-4.6); Glucose 108 mg/dL (65-115); Osmolality Calculated 302 mOsm/kg (285-295); Potassium 4.8 mmol/L (3.5-5.1); Sodium 144 mmol/L (136-145); Total Protein 6.2 g/dL (6.6-8.7)
== END 2025-02-05 23:59 | disposition home or self-care (01) ==
PROVIDERS: PCP Family Medicine; Visit Provider Internal Medicine
DX: C91.10 Chronic lymphocytic leukemia of B-cell type not having achieved remission (principal); K21.9 Gastro-esophageal reflux disease without esophagitis; Z87.891 Personal history of nicotine dependence; Z79.899 Other long term (current) drug therapy
CPT/HCPCS: 36415; 80053; 83615; 85025; 99213

== ENCOUNTER 2025-01-30 13:57 | Outpatient (CLI) | payer MEDICARE, BC, SELFPAY ==
--- NOTE | 2025-01-30 14:10 | XR_ITS ---
WS: [id number] Chest 2 views, 01/30/2025 Clinical Data: productive cough, wheezing, SOB Comparison: Portable chest, 11/10/2024 Findings: No nodules, masses or effusions are seen. The heart is normal. The pulmonary vascularity is not increased. No pneumonia or pneumothorax is seen. The diaphragms are flattened. The aortic arch shows calcification. There is an anterior cervical disc fusion. There is a L1 vertebroplasty XR/XR chest 2V* [id number] Impression: Atherosclerosis and hyperinflation.
== END 2025-01-30 13:58 | disposition home or self-care (01) ==
LOC: RAD 14:00
PROVIDERS: PCP Family Medicine; Visit Provider Family Medicine
DX: J44.1 Chronic obstructive pulmonary disease with (acute) exacerbation (principal); I70.0 Atherosclerosis of aorta
CPT/HCPCS: 71046; 87070; 87205

== ENCOUNTER 2025-03-09 00:58 | Inpatient (IN) | payer MEDICARE, BC, SELFPAY ==
--- OUTSIDE RECORDS SUMMARY | 2023-12-29 04:00 | XMS_ITS ---
Author Organization [facility] Address [address] [place] [address] Care Team Providers Care Reproduction Order Processor Name Role Phone Umesh Méndez MD Primary Care Provider Anthony Serrano Unavailable [phone] Migration, Provider Unavailable Unavailable REASON FOR VISIT EMR-[facility] Encounters Encounter Location Date Provider Diagnosis Migrated_Facility 0 0 12/29/2023 Provider Migration Plan Of Treatment Medication Medication Name Sig Start Date Stop Date Notes predniSONE 20 MG Oral Tablet 02/28/2018 018 *Reorder from [facility] for eRx and Interaction Alerts* Amoxicillin 500 MG Oral Capsule 02/28/2018 03/02/2018 *Reorder from [facility] for eRx and Interaction Alerts* Ciprofloxacin HCl 500 MG Tablet Oral 02/28/2018 03/03/2018 HYDROcodone-Acetaminophen 7.5-325 MG Tablet Oral 02/28/2018 03/05/2018 Azithromycin 500 MG Oral Tablet 02/28/2018 03/05/2018 *Reorder from [facility] for eRx and Interaction Alerts* Progress Notes * GAGANDEEP TANNER DDOB:1939 (85 yo M)Acc No.[id number]:12/29/2023 Patient: GAGANDEEP RODRÍGUEZ :1940 A ge:83 Y S ex:Male Address:[address] [place], [place] [address], [place], [address] * Refills Stop Ciprofloxacin HCl Tablet, 500 MG, Oral Stop Ciprofloxacin HCl Tablet, 500 MG, Oral Stop HYDROcodone-Acetaminophen Tablet, 7.5-325 MG, Oral Stop predniSONE 20 MG Oral Tablet Stop Amoxicillin 500 MG Oral Capsule Stop Azithromycin 500 MG Oral Tablet Subjective: * Chief Complaints: * E -Moo * * Date:
--- OUTSIDE RECORDS SUMMARY | 2023-12-30 04:00 | XMS_ITS ---
Author Organization [facility] Address [address] [place] [address] Care Team Providers Care Commercial Print Salesman Name Role Phone Umesh Méndez MD Primary Care Provider Anthony Serrano Unavailable [phone] Migration, Provider Unavailable Unavailable REASON FOR VISIT EMR-Moo Medications Medication SIG (Take, Route, Frequency, Duration) Notes Start Date End Date Status hydroCHLOROthiazide 25 MG Tablet Oral 01/22/2018 8 Active Furosemide 20 MG Tablet Oral 01/22/2018 0 8 Active amLODIPine Besylate 5 MG Tablet Oral 01/22/2018 8 Active Triamcinolone Acetonide 0.001 MG/MG Topical Ointment *[facility]* 01/22/2018 8 Active traMADol HCl 50 MG Tablet Oral 01/22/2018 8 Active [id number] 60 ACTUAT albuterol 0.09 MG/ACTUAT Metered Dose Inhaler [Ventolin] *Reorder from [facility] for eRx and Interaction Alerts* 01/22/2018 8 Active Microencapsulated potassium chloride 20 MEQ Extended Release Oral Tablet *Reorder from [facility] for eRx and Interaction Alerts* 01/22/2018 8 Active 30 ACTUAT umeclidinium 0.0625 MG/ACTUAT Dry Powder Inhaler [Incruse] *Reorder from [facility] for eRx and Interaction Alerts* 01/22/2018 8 Active Oxaprozin 600 MG Oral Tablet *[facility]* 01/22/2018 8 Active Ibuprofen 800 MG Oral Tablet *[facility]* 01/22/2018 8 Active predniSONE 5 MG Oral Tablet *[facility]* 02/28/2018 [...] * GAGANDEEP TANNER DDOB:1939 (85 yo M)Acc No.[id number]:12/30/2023 Patient: Chaka ASTUDILLO GAGANDEEP Huang :1940 A ge:83 Y S ex:Male Address:[address] [place] [address], [place], [address] Subjective: * Chief Complaints: * E MR-Moo [...] date 02/21/2018, Notes to Pharmacist: *Reorder from [facility] for eRx and Interaction Alerts*predniSONE 5 MG Oral Tablet , stop date 05/29/2018, Notes to Pharmacist: *Reorder from [facility] for eRx and Interaction Alerts*Ibuprofen 800 MG Oral Tablet , stop date 04/22/2018, Notes to Pharmacist: *Reorder from [facility] for eRx and Interaction Alerts*Oxaprozin 600 MG Oral Tablet , stop date 04/22/2018, Notes to Pharmacist: *Reorder from [facility] for eRx and Interaction Alerts*30 ACTUAT umeclidinium 0.0625 MG/ACTUAT Dry Powder Inhaler [Incruse] , stop date 02/21/2018, Notes to Pharmacist: *Reorder from [facility] for eRx and Interaction Alerts*Microencapsulated potassium chloride 20 MEQ Extended Release Oral Tablet , stop date 01/27/2018, Notes to Pharmacist: *Reorder from [facility] for eRx and Interaction Alerts*[id number] 60 ACTUAT albuterol 0.09 MG/ACTUAT Metered Dose Inhaler [Ventolin] , stop date 02/21/2018, Notes to Pharmacist: *Reorder from [facility] for eRx and Interaction Alerts*Taking amLODIPine Besylate 5 MG Tablet Oral , stop date 04/22/2018Taking Furosemide 20 MG Tablet Oral , stop date 01/27/2018Taking hydroCHLOROthiazide 25 MG Tablet Oral , stop date 04/22/2018Taking traMADol HCl 50 MG Tablet Oral , stop date 02/13/2018Taking Triamcinolone Acetonide 0.001 MG/MG Topical Ointment , stop date 02/21/2018, Notes to Pharmacist: *Reorder from [facility] for eRx and Interaction Alerts*Taking predniSONE 5 MG Oral Tablet , stop date 05/29/2018, Notes to Pharmacist: *Reorder from [facility] for eRx and Interaction Alerts*Taking Ibuprofen 800 MG Oral Tablet , stop date 04/22/2018, Notes to Pharmacist: *Reorder from [facility] for eRx and Interaction Alerts*Taking Oxaprozin 600 MG Oral Tablet , stop date 04/22/2018, Notes to Pharmacist: *Reorder from [facility] for eRx and Interaction Alerts*Taking 30 ACTUAT umeclidinium 0.0625 MG/ACTUAT Dry Powder Inhaler [Incruse] , stop date 02/21/2018, Notes to Pharmacist: *Reorder from [facility] for eRx and Interaction Alerts*Taking Microencapsulated potassium chloride 20 MEQ Extended Release Oral Tablet , stop date 01/27/2018, Notes to Pharmacist: *Reorder from [facility] for eRx and Interaction Alerts*Taking [id number] 60 ACTUAT albuterol 0.09 MG/ACTUAT Metered Dose Inhaler [Ventolin] , stop date 02/21/2018, Notes to Pharmacist: *Reorder from [employer] for eRx and Interaction Alerts* * * Date:
[2025-03-09] VITALS (19 sets, daily range): BP systolic 104–150; BP diastolic 54–95; PULSE 72–987; RESP 18–27; TEMP 36.2–37.4; O2SAT 90–97; BMI 23.8; BMI 25.7
--- NOTE | 2025-03-09 01:03 | XRR_ITS ---
PROCEDURE INFORMATION: Exam: XR Chest Exam date and time: 03/09/2025 1:11 AM Age: 85 years old Clinical indication: Shortness of breath; Prior surgery; Surgery date: 6+ months; Surgery type: Gb; EMS arrival for SOB. History of recurrent copd exacerbation. TECHNIQUE: Imaging protocol: Radiologic exam of the chest. Views: 1 view. COMPARISON: CR XR chest 2V* [id number] 01/30/2025 2:20 PM FINDINGS: Lungs: Increased interstitial thickening in the bilateral lung bases, [id number]. Pleural spaces: No pleural effusion. No pneumothorax is seen. Heart/Mediastinum: Unremarkable. No cardiomegaly. Vasculature: Atherosclerotic changes of the aorta are noted. Bones/joints: Partially imaged cervical fusion hardware is noted. XR/XR chest 1V portable [id number] IMPRESSION: Bibasilar interstitial opacification, which may be setting of interstitial pneumonia, edema, and/or interstitial lung.
--- OUTSIDE RECORDS SUMMARY | 2025-03-09 01:10 | XMS_ITS | Encounter Summary ---
Author Organization [email or web address] Address [address] [facility] [address] [place] [address] Phone Care Team Providers Care User Support Analyst Name Role Phone Autumn Pierre DO Primary Care Provider Encounter Details Date Type Department Care Team (Late st Contact Info) Description 12/19/2018 Orders Only [facility] [address] [address] Chronic kidney disease, not otherwise specified Social History Tobacco Use Types Packs/Day Years Used Date Smoking Tobacco: Never Assessed Sex and Gender Information Value Date Recorded Sex Assigned at Male 12/29/2019 7:03 PM EDT Legal Sex Male 10:21 AM EDT Gender Identity Male 12/29/2019 7:03 PM EDT Sexual Orientation Straight 12/29/2019 7: 03 PM EDT documented as of this encounter Plan of Treatment Upcoming Encounters Date Type Department Care Team (Late st Contact Info) Description 03/23/2025 11:30 AM CDT Office Visit [facility] [address] [place] [address] Ai Kumar NP [address] [address] [place] [address] documented as of this encounter Visit Diagnoses Diagnosis Chronic kidney disease, not otherwise specified documented in this encounter Care Teams User Support Analyst Relationship Specialty Start Date End Date Autumn Pierre DO [address] [place] [address] PCP - General Family Medicine 09/16/24 documented as of this encounter
--- OUTSIDE RECORDS SUMMARY | 2025-03-09 01:10 | XMS_ITS | Patient Health Record ---
Author Organization [facility] Address [address] [place] [address] Care Team Providers Care Client Solutions Director Name Role Phone Umesh Méndez MD Primary Care Provider Anthony Serrano Unavailable [phone] Allergies No Known Allergies Reason For Referral Reason COPD Scheduled 04/2025 @ 10:50 AM Diagnosis 1 Chronic obstructive pulmonary disease, unspecified (J44.9) Referring Provider First Name Abdirashid Referring Provider Last Name Milton Referring Provider Speciality Family [facility] Referred Organization [facility] Referred Provider Anthony Spence Referred Address [address] [place]ENYATTA Garcia,[place], [place],[address], Referred Provider Specialty Pulmonary [facility] General Notes Sabine Rothman 024 12:59:12 PM >Scheduled 09/15/2024 @ 10:50 AM, Sabine Rothman 05/22/2024 01:33:41 PM >Faxed request for imaging to be Stephan stahl Marie 05/26/2024 04:31:42 PM >Confirmed with radiology. Images were received and they will upload into patients chart. Referral Priority Routine Medications Medication SIG (Take, Route, Frequency, Duration) Notes Start Date End Date Status pantoprazole 01/28/2019 Not-Ta wanda predniSONE 10 MG Tablet 1 tablet with food or milk Orally Twice a day; Duration: 3 days 01/27/2013 Not-Taking Alfuzosin HCl ER Not -Taking Cialis Not-Taking Albuterol Sulfate 0.63 MG/3ML Nebulization Solution 3 ml as needed Inhalation every 6 hrs; Duration: 30 days 01/27/2013 Not-Taking Ibuprofen 800 MG Oral Tablet 05/17/2017 Not-Taking oxaprozin 600 MG Oral Tablet 05/17/2017 Not-Taking apixaban 5 MG Oral Tablet 01/28/2019 Not-Taking Furosemide 01/28/2019 Not-Taki ng Flomax 0.4 MG Capsule 1 capsule Orally Once a day Active Citalopram Hydrobromide Active Pacerone Active Advair Diskus Active Avodart Not-Taking Tradjenta Active Bactrim DS 800-160 MG Tablet 1 tablet Orally Twice a day; Duration: 10 day(s) 01/27/2013 Not-Taking [place] 5-325 MG Tablet 1 tablet as needed Orally every 4-6 hrs; Duration: 7 days 05/12/2020 Not-Taking predniSONE 05/15/2017 Not-Taki ng Atorvastatin Calcium 20 MG Tablet 1 tablet Orally hs Active PreserVision 01/24/2018 Active Incruse Ellipta Acti ve Warfarin Sodium 4 MG Tablet 1 tablet Orally Once a day 1/2 tablet on Sunday and Active Allopurinol 01/28/2019 Active Ipratropium-Albuterol 0.5-2.5 (3) MG/3ML Solution 3 ml as needed Inhalation every 6 hrs Active [place] 5-325 MG Tablet 1 tablet as needed Orally every 4-6 hrs; Duration: 7 days 05/11/2020 Not-Taking Metoprolol Tartrate 50 MG Tablet as directed Orally Twice a day Not-Taking traMADol HCl 50 MG Tablet as directed Orally Q 8 hours; Duration: 14 days 05/14/2020 Not-Taking amLODIPine Besylate Active hydroCHLOROthiazide 05/15/2017 Active Ventolin HFA Active Immunizations Vaccine Route Administration Date Status Comme nts Influenza (whole), CPT 34696 Inactive Unknown 01/30/2019 Administered Pneumococcal polysaccharide PPV23 Unknown 08/05/2018 Ad ministered Influenza (whole), CPT 98532 Inactive Unknown 11/15/2017 Administered Influenza (whole), CPT 52939 Inactive Unknown 09/17/2017 Administered Social History Social History Drugs/Alcohol: Social Info Question Answer Notes Alcohol Screen (Audit-C) Did you have a drink containing alcohol in the past year? Yes How often did you have a drink containing alcohol in the past year? 2 to 4 times a month (2 points) Points 2 Interpretation Negative Drugs Have you used drugs other than those for medical reasons in the past 12 months? No Additional Details Category Social Info Options Details Migrated Social History Migrated Social History History of tobacco use : , Alcohol intake : , Smoking Status : Never smoked , Smoking Status : Former smoker zzMigrated Social History Migrated Social History Social History(Tobacco Use):yes Type: Quantity/Week: Years of use: ;Social History(Smoking(MU):):Smo wanda Status: Current smoker ; Problems Problem Type SNOMED Code ICD Code Onset Dates Problem Status W/U Status Risk Notes Problem Bronchitis (32370417) Bronchitis, not specified as acute or chronic (490) Active confirmed Problem Localized, primary osteoarthritis of the shoulder region (735331673) Primary osteoarthritis, left shoulder (M19.012) Active confirmed Problem Localized, secondary osteoarthritis of the ankle and/or foot (291152335) Secondary osteoarthritis, 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) Active confirmed Problem Pre-procedure evaluation check (152084294) Encounter for other preprocedural examination (Z01.818) Active confirmed Problem Chronic obstructive pulmonary disease (82142531) Stage 3 severe COPD by GOLD classification (J44.9) Active confirmed Problem Acquired trigger finger (9991801) Trigger middle finger of left hand (M65.332) Active confirmed Problem Localized, primary osteoarthritis of the ankle and/or foot (608334917) 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) Active confirmed Problem 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) Active confirmed Problem Chronic respiratory failure (53082372) Chronic hypoxic respiratory failure (J96.11) Active confirmed Encounters Encounter Location Date Provider Diagnosis [facility] [address] [place] [address] [place] [address] 04/23/2024 Anthony Spence [facility] [address] [place] [address] [place] [address] 09/12/2024 Anthony Spence Plan Of Treatment No Information Insurance Providers Payer Name Payer Address Payer Phone Subscriber Number Group Number Insured Name Patient Relationship to Insured Coverage Start Date Coverage End Date [place] Medicare [address] [place] [phone] [id number] GAGANDEEP TANNER Self - patient is the insured BCBS Supplement [address] [place] [phone] [id number] GAGANDEEP TANNER Self - patient is the insured Medications Administered Medication Instructions Date of Administration Dosage Notes DEPO-Medrol 06/14/2021 40 mg Xylocaine 06/14/2021 20 mg Medical (General) History Medical History History ICD Code hypertension Benign prostatic hyperplasia Chronic hypoxemic respiratory failure Chronic obstructive lung disease Dyspnea on exertion Hypoxemia Impotence :Impotence of organic origin Knee pain Obesity Peripheral edema Raised prostate specific antigen Severe chronic obstructive pulmonary dis ease Adenomatous polyp of colon Benign prostatic hyperplasia Chronic obstructive lung disease Diverticular disease of left side of col on Hypertensive disorder, systemic arterial Surgical History Surgery Date(Month/Year) right knee replacement manipulation of right total knee arthrop lasty right long and small A1 kip trigger f ausitn release 05/12/2020 Left long finger trigger release 022 Hospitalization History Reason Date(Month/Year) right knee replacement
--- OUTSIDE RECORDS SUMMARY | 2025-03-09 01:11 | XMS_ITS | Clinical Summary ---
Author Organization [facility] Address [address] [place] [id number] Care Team Providers Care Security Operations Center Analyst Name Role Phone Autumn Pierre Primary Care Provider Allergies No known active allergies Medications allopurinol (ZYLOPRIM) 300 MG tablet Take 1/2 tablet by mouth daily. (150mg) Active albuterol HFA (PROVENTIL HFA;VENTOLIN HFA) 108 (90 Base) MCG/ACT inhaler Inhale 2 puffs every 4 (four) hours if needed for wheezing Active Multiple Vitamins-Mineral s (PRESERVISION AREDS 2 PO) Take 1 tablet by mouth 1 (one) time each day Active warfarin (COUMADIN) 2 MG tablet Take 2 mg by mouth 1 (one) time each day As directed Active Tradjenta 5 MG tablet Take 1 tablet by mouth 1 (one) time each day in the morning 0 Active atorvastatin (LIPITOR) 20 MG tablet Take 20 mg by mouth 1 (one) time each day 1 Active citalopram (CeleXA) 20 MG tablet Take 40 mg by mouth 1 (one) time each day Takes 30 mg daily 2 Active tamsulosin (FLOMAX) 0.4 MG 24 hr capsule TAKE 1 CAPSULE BY MOUTH ONCE DAILY WITH SUPPER 2 Active Yupelri 175 MCG/3ML solution Inhale 3 mL 1 (one) time each day if needed (COPD) 4 Active potassium chloride 10 MEQ CR tablet Take 10 mEq by mouth 1 (one) time each day 4 Active furosemide (LASIX) 20 MG tablet Take 20 mg by mouth 1 (one) time each day 4 Active dilTIAZem (TIAZAC) 240 MG 24 hr capsule Take 240 mg by mouth 1 (one) time each day 4 Active budesonide (PULMICORT) 0.5 MG/2ML nebulizer solution Take 0.5 mg by nebulization 2 (two) times a day if needed (COPD) 4 Active olmesartan (BENICAR) 5 MG tabletIndication s:Essential (primary) hypertension Take 2 tablets by mouth once daily 60 tablet 4 Active famotidine (PEPCID) 20 MG tablet Take 20 mg by mouth in the morning and 20 mg in the evening. 4 Active ipratropium-albu terol (DUO-NEB) 0.5-2.5 mg/3 mL nebulizer solution Take 3 mL by nebulization 4 (four) times a day if needed for shortness of breath Active amLODIPine (NORVASC) 5 MG tablet Take 5 mg by mouth 1 (one) time each day 2 Active Eliquis 5 MG tablet Take 5 mg by mouth in the morning and 5 mg in the evening. 4 Active hydrOXYzine (ATARAX) 10 MG tabletIndication s:Other urticaria Take 1 tablet (10 mg total) by mouth 3 (three) times a day if needed for itching 30 tablet 11 5 026 Active Active Problems Problem Noted Date Diagnosed Date Benign prostatic hyperplasia 10/31/2022 Dyspnea on exertion 10/31/2022 Prostate specific antigen above reference range 10/31/2022 Stage 3a chronic kidney disease 06/16/2020 Overview (07/12/2020): Update for Diagnosis Load Essential (primary) hypertension 06/16/2020 Type 2 diabetes mellitus wit h other diabetic kidney complication 06/16/2020 Chronic hypoxemic respiratory failure 10/24/2018 Hypoxemia 10/24/2018 Peripheral edema 10/24/2018 Severe chronic obstructive pulmonary disease Immunizations Immunization Administration Dates Next Due Influenza TIV (IM) 09/25/2018 Pneumococcal Polysaccharide 08/05/2018 Pneumococcal, Unspecified 11/15/2017 Family History Medical History Relation Comments Cancer Father Cancer Sibling Relation Status Comments Father Mother Sibling Social History Tobacco Use Types Packs/Day Years Used Date Smoking Tobacco: Former Cigarettes Q uit: 2009 Smokeless Tobacco: Never Tobacco Cessation:Counseling Given: Not Answered Alcohol Use Standard Drinks/Week Comments Yes 0 (1 standard drink = 0.6 oz pur e alcohol) Occasional Sex and Gender Information Value Date Recorded Sex Assigned at Male 12/29/2019 7:03 PM EDT Legal Sex Male 10:21 AM EDT Gender Identity Male 12/29/2019 7:03 PM EDT Sexual Orientation Straight 12/29/2019 7: 03 PM EDT Last Filed Vital Signs Vital Sign Reading Time Taken Comments Blood Pressure 101/50 09/16/2024 2:22 PM CDT Pulse 61 09/16/2024 1:54 PM CDT Temperature 36.7 C (98 F) 10/11/2020 9:54 AM CDT Respiratory Rate - - Oxygen Saturation 91% 09/16/2024 1:54 PM CDT Inhaled Oxygen Concentration - - Weight 83.7 kg (184 lb 9.6 oz) 05/08/2024 11:44 AM CDT Height 177.8 cm (5' 10 ) 05/08/2024 11:44 AM CDT Body Mass Index 26.49 05/08/2024 11:44 AM CDT Plan of Treatment Upcoming Encounters Date Type Department Care Team (Late st Contact Info) Description 03/23/2025 11:30 AM CDT Office Visit [facility], [facility] [address] [place] [address] Ai Kumar NP [address] [facility] [address] [place] [id number] Health Maintenance Due Date Last Done Comments Pneumococcal Vaccine: 50+ Years (2 of 2 - PCV) 08/05/2019 08/05/2018, 11/15/2017 Diabetes: Hemoglobin A1C 01/06/2020 Diabetes: Ophthalmology Exam 01/06/2020 Diabetes: Pedal Pulse Checked 01/06/2020 Diabetes: Sensory Foot Exam 01/06/2020 Diabetes: Visual Foot Exam 01/06/2020 Influenza Vaccine (#1) 2025 09/25/2018 Pneumococcal Vaccine: Peds ( 0 to 5 Years) and At-Risk Patients (6 to 49 Years) Discontinued 08/05/2018, 11/15/2017 Hepatitis B Vaccine Aged Out No longe r eligible based on patient's age to complete this topic Insurance Medicare [facility] Care Teams Security Operations Center Analyst Relationship Specialty Start Date End Date Autumn Pierre DO [address] [facility] [address] [place] [address] PCP - General Family Medicine 09/16/24
[2025-03-09] MEDS: magnesium sulfate premix 2 GM/50 ML PIGGYBACK IV (01:18)
[2025-03-09 01:29] LABS: ABG PCO2 37.4 mmHg (35-45); ABG PH Result 7.35 (7.35-7.45); Arterial Blood Gas Hematocrit 41.5 % (42-52); Blood Gas Allen Test Pos; Blood Gas LPM 3.0 %; Blood Gas Operator Identificat BD; Blood Gas Sample Site Brachial, right; Blood Gas Sample Type Arterial; Carboxyhemoglobin 1.1 %THgb (0.4-20.1); HCO3 ABG 20.8 mmol/L (22-26); Methemoglobin 1.0 % (0.4-1.5); PO2 ABG 69.4 mmHg (80.0-100.0); PO2 FiO2 Ratio Arterial Blood 216
[2025-03-09 01:46] LABS: Hematocrit 40.0 % (37-53); Hemoglobin 13.00 g/dL (11.27-16.99); Mean Corpuscular HGB Conc 32.5 g/dL (30-55); Mean Corpuscular Hemoglobin 30.0 pg (27-33); Mean Corpuscular Volume 92.4 fl (82-101); Nucleated Red Blood Cells % 0 %; Platelet Count 243 10^3/cmm (157-399); Red Blood Count 4.33 10^6/uL (3.85-5.65); White Blood Count 27.23 10^3/uL (3.29-11.43)
--- NOTE | 2025-03-09 01:52 | W.ED.SOB ---
HPI - SOB/Dyspnea General: Chief Complaint: Shortness of Breath/Dyspnea Stated Complaint: SOB Time Seen by Provider: 03/09/25 00:58 History of Present Illness: HPI Narrative: Patient is an 85-year-old male who presents with respiratory distress, persistent cough, and vomiting. He reports onset of symptoms on Sunday morning (approximately 24 hours prior to presentation). The patient has been experiencing significant coughing described as 'a lot' with productive yellowish sputum. He reports vomiting 4-5 times since symptom onset. He denies fever, diarrhea, or abdominal pain. The patient uses home oxygen therapy at 2L. He was given 125mg of Solu-Medrol and 8mg Zofran by EMS. The patient reports feeling tired but states his condition is 'a little bit better' compared to initial onset. He also mentions a history of vertigo. Related Data Home Medications ?Medication ?Instructions ?Recorded ?Confirmed linagliptin PO BEDTIME 03/09/25 Previous Rx's ?Medication ?Instructions ?Recorded formoterol fumarate 20 mcg/2 mL 2 ml inhalation BID #120 mL 02/08/24 solution for nebulization (Perforomist) revefenacin 175 mcg/3 mL solution 175 mcg (3 mL) inhalation DAILY 02/26/24 for nebulization (Yupelri) COPD J44.9 #90 mL hydrocodone 5 mg-acetaminophen 325 1 - 2 tab PO .Q4-6H 10 days #40 08/04/24 mg tablet tabs clobetasol 0.05 % scalp solution 1 applic topical BID 2 weeks #50 mL 08/13/24 warfarin 3 mg tablet 3 mg PO DIRECTED #90 tabs 08/13/24 diltiazem HCl 240 mg capsule,24 240 mg PO DAILY #90 caps 10/01/24 hr,extended release allopurinol 300 mg tablet 150 mg (1/2 x 300 mg) PO QAM #90 12/12/24 tabs albuterol sulfate 90 mcg/actuation 2 puff inhalation Q4H PRN 12/29/24 aerosol inhaler Shortness Of Breath #8.5 grams atorvastatin 20 mg tablet 20 mg PO BEDTIME #90 tabs 01/21/25 citalopram 40 mg tablet 40 mg PO DAILY #90 tabs 01/21/25 tamsulosin 0.4 mg capsule (Flomax) 0.4 mg PO BEDTIME #90 caps 01/21/25 furosemide 20 mg tablet 20 mg PO DAILY #90 tabs 01/30/25 famotidine 20 mg tablet 20 mg PO BID GERD #60 tabs 02/24/25 Allergies Allergy/AdvReac Type Severity Reaction Status Date / Time No Known Allergies Allergy Verified 02/24/25 11:07 [facility] ED PFSH: Medical History CKD stage 3b, GFR 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 CLL (chronic lymphocytic leukemia) Gastroesophageal reflux disease, unspecified whether esophagitis present Type 2 diabetes mellitus without complications Delirium Frontal lobe dementia Word finding difficulty Displaced fracture of right femoral neck Closed fracture of right hip Atrial fibrillation with rapid ventricular response Lymphocytosis Bradycardia Long-term (current) use of anticoagulants, INR goal 2.0-3.0 Dyslipidemia Edema leg COPD (chronic obstructive pulmonary disease) Atopic dermatitis, unspecified Gout, unspecified Orthopnea Essential (primary) hypertension Surgical History History of right hip replacement History of left hip replacement Dr. Bennett - 11/2021 at [place], [place] History of prostate surgery History of total knee replacement bilateral History of cholecystectomy Family History Other Cancer Hypertension Lung disease Denies family history of Diabetes CAD (coronary artery disease) Clotting disorder Dementia Hyperlipidemia Psychiatric illness Chronic kidney disease (CKD) Suicide Anesthesia complication Bleeding disorder Stroke Social History Smoking and tobacco/nicotine status: former use of tobacco/nicotine Quit status (tobacco/nicotine): has quit using Year quit tobacco: 2009 - PD x 50 Years Second hand smoke exposure: No Alcohol intake: current Substance/Drug Use: never Lives independently: Yes Household members: spouse Marital status: Current occupational status: retired Do you think of yourself as: Straight/Heterosexual Current gender identity: Male Physical Exam Const: GENERAL APPEARANCE: cooperative and ill appearing; not frail appearing HENMT: COMMON NORMALS: normocephalic, atraumatic and Normal external nose present HEAD & SCALP: normocephalic and atraumatic FACE & SINUS: normal facial exam and face symmetric NOSE: Normal external nose present Eye: COMMON NORMALS: Equal, round and reactive pupils present and EOMs intact bilaterally PUPIL: Yes Equal, round and reactive pupils present Neck/C-Spine: GENERAL: Yes trachea midline Chest: CHEST: Yes Symmetrical chest wall rise Resp: EFFORT & INSPECTION: Yes symmetric chest movement, Yes tachypneic and Yes labored AUSCULTATION: rhonchi and wheezes Cardio: COMMON NORMALS: regular rate and regular rhythm RATE: regular rate RHYTHM: regular rhythm GI: COMMON NORMALS: Normal to inspection, nondistended, normoactive bowel sounds present Extremity: COMMON NORMALS: no pedal edema Neuro: ABRIL COMA SCALE: document GCS findings Abril coma scale eye opening: Spontaneous Sparks coma scale verbal response: Orientated Sparks coma scale motor response: Obey commands Sparks coma scale total score: 15 SENSORY EXAM: Yes extremities (intact) Psych: COMMON NORMALS: speech normal SPEECH: Yes normal speech Skin: COMMON NORMALS: no rashes or lesions noted GENERAL SKIN EXAM: no rashes or lesions noted Course Vital Signs: Vital signs: Vital Signs Temperature 97.6 F 03/09/25 04:36 Pulse Rate 95 03/09/25 04:36 Respiratory Rate 23 H 03/09/25 04:36 Blood Pressure 138/95 03/09/25 04:36 Pulse Oximetry 93 03/09/25 04:36 Oxygen Delivery Me thod Nasal Cannula 03/09/25 04:36 Oxygen Flow Rate 3 03/09/25 04:06 MDM - SOB/Dyspnea Medical Decision Making Patient is tachycardic on arrival. Saturations remained above 92% on 3 L. White blood cell count is 27. Blood gas shows a pH of 7.35 with a pCO2 of 37.4 and the pH O2 of 70. Chest x-ray reveals bibasilar infiltrates. He was given Solu-Medrol, 2 DuoNeb treatments and route. Here, he is given DuoNeb, magnesium. He is feeling somewhat improved. He is tachycardic. Rocephin and Zithromax have been started after blood cultures. Spoke with hospitalist. She has evaluated the patient. Will give a single dose of Lasix given elevated BNP. The patient does have a similar recent echocardiogram showing a normal LVEF. Given significant leukocytosis, cough with sputum production, will continue to treat for pneumonia. He will be admitted to the CSU. Lab Data 03/09/25 01:39 03/09/25 01:39 Labs/Radiology: Radiology Impressions Chest X-Ray 03/09/25 01:03 IMPRESSION: Bibasilar interstitial opacification, which may be setting of interstitial pneumonia, edema, and/or interstitial lung. Laboratory Results WBC 27.23 10^3/uL (3.29-11.43) H 03/09/25 01:39 Corrected WBC Cancelled 03/09/25 01:10 RBC 4.33 10^6/uL (3.85-5.65) 03/09/25 01:39 Hgb 13.00 g/dL (11.27-16.99) 03/09/25 01:39 Hct 40.0 % (37-53) 03/09/25 01:39 MCV 92.4 fl (82-101) 03/09/25 01:39 MCH 30.0 pg (27-33) 03/09/25 01:39 MCHC 32.5 g/dL (30-55) 03/09/25 01:39 RDW 15.4 % (12.1-15.1) H 03/09/25 01:39 Plt Count 243 10^3/cmm (157-399) 03/09/25 01:39 MPV 9.3 fL (7.4-10.4) 03/09/25 01:39 Gran % Cancelled 03/09/25 01:10 Neut % (Auto) 70.2 % 03/09/25 01:39 Lymph % (Auto) 25.4 % 03/09/25 01:39 Jessamine % (Auto) 3.8 % 03/09/25 01:39 Eos % (Auto) 0.0 % 03/09/25 01:39 Baso % (Auto) 0.2 % 03/09/25 01:39 Neut # (Auto) 19.12 10^3/uL (1.8-7.7) H 03/09/25 01:39 Lymph # (Auto) 6.9 10^3/uL (0.8-4.8) H 03/09/25 01:39 [place] # (Auto) 1.0 10^3/uL (0.2-0.9) H 03/09/25 01:39 Eos # (Auto) 0.0 10^3/uL (0.0-0.8) 03/09/25 01:39 Baso # (Auto) 0.1 10^3/uL (0.0-0.1) 03/09/25 01:39 Absolute Gran (auto) Cancelled 03/09/25 01:10 Nucleated RBC % (auto) 0 % 03/09/25 01:39 Nucleated RBCs # 0.0 /100WBC 03/09/25 01:39 Specimen Type Arterial 03/09/25 01:15 Sample Site Brachial, right 03/09/25 01:15 ABG pH 7.35 (7.35-7.45) 03/09/25 01:15 ABG pCO2 37.4 mmHg (35-45) 03/09/25 01:15 ABG pO2 69.4 mmHg (80.0-100.0) L 03/09/25 01:15 ABG PO2/FiO2 Ratio 216 03/09/25 01:15 ABG HCO3 20.8 mmol/L (22-26) L 03/09/25 01:15 ABG Base Excess -4.2 mmol/L (-2.0-2.0) L 03/09/25 01:15 Hema Test Pos 03/09/25 01:15 Hematocrit 41.5 % (42-52) L 03/09/25 01:15 Hgb O2 Saturation 92.4 % (95-100) L 03/09/25 01:15 Carboxyhemoglobin 1.1 %THgb (0.4-20.1) 03/09/25 01:15 Methemoglobin 1.0 % (0.4-1.5) 03/09/25 01:15 Total Hemoglobin 13.5 g/dL (14-18) L 03/09/25 01:15 O2 Delivery Device Nc 03/09/25 01:15 O2 Liters/Min 3.0 % 03/09/25 01:15 FiO2 32.0 % 03/09/25 01:15 Drug Abuse Resistance Education Officer ID Bd 03/09/25 01:15 Sodium 140 mmol/L (136-145) 03/09/25 01:39 Potassium 5.0 mmol/L (3.5-5.1) 03/09/25 01:39 Chloride 103 mmol/L (98-107) 03/09/25 01:39 Carbon Dioxide 20 mmol/L (22-29) L 03/09/25 01:39 Anion Gap 22.0 (5-19) H 03/09/25 01:39 BUN 30 mg/dL (8-23) H 03/09/25 01:39 Creatinine 1.8 mg/dL (0.7-1.2) H 03/09/25 01:39 GFR Calculation Not Reportable 03/09/25 01:39 Glucose 132 mg/dL (65-115) H 03/09/25 01:39 Calculated Osmolality 298 mOsm/kg (285-295) H 03/09/25 01:39 Lactic Acid 1.5 mmol/L (0.5-2.2) 03/09/25 01:39 Calcium 9.2 mg/dL (8.5-10.5) 03/09/25 01:39 Total Bilirubin 1.0 mg/dL (0.15-1.2) 03/09/25 01:39 AST 13 U/L (0-40) 03/09/25 01:39 ALT 11 U/L (0-41) 03/09/25 01:39 Alkaline Phosphatase 148 U/L (40-130) H 03/09/25 01:39 Troponin T Baseline 89 ng/L (0-15) H 03/09/25 01:39 Troponin T 120 Minute 87.71 ng/L (0-15) H 03/09/25 03:27 Delta Troponin T -1.29 ABS# (0-10) L 03/09/25 03:27 NT-Pro-B Natriuret Pep 5691 pg/mL (0-450) H 03/09/25 01:39 Total Protein 6.1 g/dL (6.6-8.7) L 03/09/25 01:39 Albumin 3.8 g/dL (3.5-5.2) 03/09/25 01:39 Globulin 2.3 g/dL (1.3-4.6) 03/09/25 01:39 Influenza A (PCR) Negative (Negative) 03/09/25 01:10 Influenza Type B (PCR) Negative (Negative) 03/09/25 01:10 RSV (PCR) Negative (Negative) 03/09/25 01:10 SARS-CoV-2 (PCR) Negative (Negative) 03/09/25 01:10 All radiology interpretation(s) finalized by discharge Critical Care Time Critical Care Time: Total Critical Care Time: 35 Attestation: This case had a high probability of a clinically significant, sudden, or life threatening deterioration of this patient's condition which required my full and direct attention, intervention and personal management. Time is independent of any procedures performed Discharge Plan Discharge Patient Disposition: Admitted As Inpatient Admit Provider: Yola Simon Clinical Impression: COPD with acute exacerbation, Acute on chronic hypoxic respiratory failure Bilateral pneumonia Qualifiers: Pneumonia type: due to unspecified organism Lung location: lower lobe of lung Qualified Code(s): J18.9 - Pneumonia, unspecified organism Condition: Fair Coding Level of Care Code ED Reproduction Machine Loader for 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
[2025-03-09 02:01] LABS: Respiratory Syncytial Virus Ce NEGATIVE (Negative); SARS-CoV-2 PCR NEGATIVE (Negative)
[2025-03-09 02:14] LABS: Lactic Sepsis W/Reflex 1.5 mmol/L (0.5-2.2); Troponin(5th) Baseline 89 ng/L (0-15)
[2025-03-09] MEDS: cefTRIAXone 1,000 mg SDV 1000 MG IVP (02:15)
[2025-03-09 02:48] LABS: Alanine Aminotransferase 11 U/L (0-41); Albumin Level 3.8 g/dL (3.5-5.2); Alkaline Phosphatase 148 U/L (40-130); Anion Gap 22.0 (5-19); Aspartate Amino Transferase 13 U/L (0-40); Blood Urea Nitrogen 30 mg/dL (8-23); Calcium 9.2 mg/dL (8.5-10.5); Carbon Dioxide 20 mmol/L (22-29); Chloride 103 mmol/L (98-107); Globulin 2.3 g/dL (1.3-4.6); Glucose 132 mg/dL (65-115); NT Pro B Type Natriuretic Pept 5691 pg/mL (0-450); Osmolality Calculated 298 mOsm/kg (285-295); Potassium 5.0 mmol/L (3.5-5.1); Sodium 140 mmol/L (136-145); Total Protein 6.1 g/dL (6.6-8.7)
[2025-03-09 02:49] LABS: Creatinine Clr Calc Pharmacy 32.4946
--- NOTE | 2025-03-09 03:04 | ECG_ITS ---
[employer] Test Date: 2025-03-09 Pat Name: Jesús Cole Department: Room: 103 Gender: Male Pediatric Nephrologist: : 1940 Requested By: Rafael Spencer Order Number: [id number] Gloria MD: Geoffrey Orta M.D. Measurements Intervals [place] Rate: 89 P: 77 VT: 142 QRS: -25 QRSD: 87 T: 74 QT: 374 QTc: 457 Interpretive Statements SINUS RHYTHM WITH OCCASIONAL SUPRAVENTRICULAR PREMATURE COMPLEXES BORDERLINE LEFT AXIS DEVIATION [QRS AXIS < -20] Compared to ECG 06/17/2024 00:57:40 Atrial fibrillation no longer present Electronically Signed On 03-09-2025 13:45:36 CDT by Geoffrey Orta M.D. [email or web address]
--- NOTE | 2025-03-09 03:48 | PM.HP ---
Providers/Chief Complaint Admitting Physician: DR HARSHIL SIMON DO--patient seen after 12 midnight Primary Care Provider: Autumn Pierre DO Chief Complaint: SOB History of Present Illness Jesús Cole is a 85 year old male who presented to the emergency room within 24 hours of initial cough last night and then had to come in early this morning because another cough woke him up with a coughing fit. Patient was noted to be coughing and wheezing and also tachycardic. He uses 3 L of oxygen at home and it was increased to a 4 L in the emergency room. Lab studies were significant for a white count of 27,000 proBNP of 5600 lactate 1.5. Chest x-ray were significant for bilateral pneumonia. Last year June patient had pneumonia ejection fraction for echo was 60% at the time. Patient troponin is up at 89 but negative delta. Patient is diabetic and had once had pneumocystic pneumonia. He has a history of atrial fibrillation on Coumadin Patient received antibiotics of ceftriaxone and azithromycin and also was given 60 mg of IV Lasix in the emergency room. Patient does have daily Lasix at home. He is also with chronic renal failure creatinine stable at 1.7-1.8 and this had not changed. Patient is still short of breath but relaxed at the time of my evaluation in the emergency room. For this patient with much comorbid condition 85 years old I am placing the patient to stepdown unit for care. Patient is being admitted for bilateral pneumonia, CHF, sudden symptomatology overnight for immediate and direct monitoring and care. Patient had no chest pain. Troponin elevation most likely because of mild dehydration coupled with chronic renal failure Review of Systems Narrative: System review upon 10 ongoing review is significant for cardial pulmonary significant for heart and lung otherwise unremarkable Medications/Allergies Home Medications ?Medication ?Instructions ?Recorded ?Confirmed ?Last Taken ?Type formoterol fumarate 20 mcg/2 mL 2 ml inhalation BID #120 mL 02/08/24 02/24/25 04/11/24 Rx solution for nebulization (Perforomist) revefenacin 175 mcg/3 mL solution 175 mcg (3 mL) inhalation DAILY 02/26/24 02/24/25 04/11/24 Rx for nebulization (Yupelri) COPD J44.9 #90 mL hydrocodone 5 mg-acetaminophen 325 1 - 2 tab PO .Q4-6H 10 days #40 08/04/24 02/24/25 Unknown Rx mg tablet tabs clobetasol 0.05 % scalp solution 1 applic topical BID 2 weeks #50 mL 08/13/24 02/24/25 Unknown Rx warfarin 3 mg tablet 3 mg PO DIRECTED #90 tabs 08/13/24 02/24/25 Unknown Rx diltiazem HCl 240 mg capsule,24 240 mg PO DAILY #90 caps 10/01/24 02/24/25 Unknown Rx hr,extended release allopurinol 300 mg tablet 150 mg (1/2 x 300 mg) PO QAM #90 12/12/24 02/24/25 Unknown Rx tabs albuterol sulfate 90 mcg/actuation 2 puff inhalation Q4H PRN 12/29/24 02/24/25 Unknown Rx aerosol inhaler Shortness Of Breath #8.5 grams atorvastatin 20 mg tablet 20 mg PO BEDTIME #90 tabs 01/21/25 02/24/25 Unknown Rx citalopram 40 mg tablet 40 mg PO DAILY #90 tabs 01/21/25 02/24/25 Unknown Rx tamsulosin 0.4 mg capsule (Flomax) 0.4 mg PO BEDTIME #90 caps 01/21/25 02/24/25 Unknown Rx furosemide 20 mg tablet 20 mg PO DAILY #90 tabs 01/30/25 02/24/25 Unknown Rx famotidine 20 mg tablet 20 mg PO BID GERD #60 tabs 02/24/25 02/24/25 Unknown Rx linagliptin PO BEDTIME 03/09/25 Unknown History Allergies Allergy/AdvReac Type Severity Reaction Status Date / Time No Known Allergies Allergy Verified 02/24/25 11:07 PFSH Acute PFSH: Medical History CKD stage 3b, GFR 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 CLL (chronic lymphocytic leukemia) Gastroesophageal reflux disease, unspecified whether esophagitis present Type 2 diabetes mellitus without complications Delirium Frontal lobe dementia Word finding difficulty Displaced fracture of right femoral neck Closed fracture of right hip Atrial fibrillation with rapid ventricular response Lymphocytosis Bradycardia Long-term (current) use of anticoagulants, INR goal 2.0-3.0 Dyslipidemia Edema leg COPD (chronic obstructive pulmonary disease) Atopic dermatitis, unspecified Gout, unspecified Orthopnea Essential (primary) hypertension Surgical History History of right hip replacement History of left hip replacement Dr. Bennett - 11/2021 at [place], [place] History of prostate surgery History of total knee replacement bilateral History of cholecystectomy Family History Other Cancer Hypertension Lung disease Denies family history of Diabetes CAD (coronary artery disease) Clotting disorder Dementia Hyperlipidemia Psychiatric illness Chronic kidney disease (CKD) Suicide Anesthesia complication Bleeding disorder Stroke Social History Smoking and tobacco/nicotine status: former use of tobacco/nicotine Quit status (tobacco/nicotine): has quit using Year quit tobacco: 2009 - 1PPD x 50 Years Second hand smoke exposure: No Alcohol intake: current Substance/Drug Use: never Lives independently: Yes Household members: spouse Marital status: Current occupational status: retired Do you think of yourself as: Straight/Heterosexual Current gender identity: Male Vitals/I&O/Wt Last Vital Signs Temp 99.4 F 03/09/25 01:01 Pulse 92 03/09/25 03:26 Resp 22 H 03/09/25 03:26 BP 144/70 03/09/25 03:26 Pulse Ox 96 03/09/25 03:26 O2 Del Method Nasal Cannula 03/09/25 03:26 O2 Flow Rate 3 03/09/25 03:26 03/08/25 03/08/25 03/09/25 14:59 22:59 06:59 Intake Total 300 / 300 Balance 300 / 300 Weight last 48 hrs Weight 75.206 kg Physical Exam Narrative: Patient was relaxed upon my evaluation in the emergency room and received antibiotics and nebulizing treatments and also Lasix 60 mg IV x 1 HEENT normocephalic/atraumatic neck neck is supple cardiovascular heart rate is regular lungs are pretty much clear abdomen soft nontender nondistended unremarkable extremities intact no edema has good pulses neurology has no focality lab studies lab studies reviewed and noted. Data 03/09/25 01:39 03/09/25 01:39 Micro: Microbiology 03/09/25 01:39 Blood Culture - Preliminary Blood SPECIMEN COLLECTED 03/09/25 01:35 Blood Culture - Preliminary Blood SPECIMEN COLLECTED A&P Assessment and plan 1. CAP (community acquired pneumonia): 2. Productive cough: 3. Leukocytosis: 4. CHF (congestive heart failure): 5. CKD stage 3b, GFR 30-44 ml/min: Plan: #1 Community-acquired pneumonia in bilateral lungs -Admit to stepdown unit -Shortness of breath and intractable cough with comorbid condition - Patient with leukocytosis - Antibiotics initiated with ceftriaxone and azithromycin - Steroid therapy to help with bronchial spasm with wheezes - Nebulizing treatment #2 Intractable productive cough - Mucinex initiated - Nebulizing treatment - Continue care for pneumonia as per above #3 Leukocytosis secondary to underlining pneumonia - Continue antibiotics - Patient did get a liter of normal saline from the emergency room - Avoid IV fluid because patient is already in a mild CHF #4 CHF exacerbation - Will continue with gentle diuresis with Lasix - Patient had received 60 mg of IV Lasix in the emergency room - Patient had an echocardiogram last year EF 60% with diastolic dysfunction - CHF is due to diastolic dysfunction #5 Stable chronic renal disease - Keep medication renal friendly - Patient creatinine is stable at baseline of 1.8 #6 GI and DVT prophylaxis in place PDMP PDMP Reviewed: Not Reviewed Attestations Medical Necessity Statement*: 85-year-old with bilateral pneumonia that started all of a sudden with much leukocytosis at 2700 would need inpatient care for at least minimum 2 midnights for optimization of care Coding Level of Care Code 39236 Diagnoses CAP (community acquired pneumonia) J18.9 Productive cough R05.8 Leukocytosis D72.829 CHF (congestive heart failure) I50.9 CKD stage 3b, GFR 30-44 ml/min N18.32 Time Spent (min) 60
[2025-03-09 04:00] LABS: Troponin 5 2HR 87.71 ng/L (0-15)
[2025-03-09 04:06] LABS: Troponin 5 2HR Delta -1.29 ABS# (0-10)
[2025-03-09] MEDS: FUROsemide 10 mg/mL SDV 10mL 60 MG IVP (04:13)
[2025-03-09] MEDS: heparin 5,000 unit/mL INJ 1 mL 5000 UNIT SUBCUT (04:14)
[2025-03-09] MEDS: cefTRIAXone 2,000 mg SDV 2000 MG IVP (06:41)
[2025-03-09 08:00] LABS: Troponin 5 6HR 86.23 ng/L (0-15)
[2025-03-09 08:11] LABS: Troponin 5 6HR Delta -2.77 ng/L (0-12)
--- NOTE | 2025-03-09 08:32 | ECG_ITS ---
[facility] IP Test Date: 2025-03-09 Pat Name: Jesús Cole Department: Room: 103 Gender: Male Tape Cutter: : 1940 Requested By: Rafael Spencer Order Number: [id number] Gloria MD: Geoffrey Orta M.D. Measurements Intervals Adrian Rate: 91 P: 74 LA: 147 QRS: -11 QRSD: 82 T: 76 QT: 383 QTc: 472 Interpretive Statements SINUS RHYTHM WITH FREQUENT SUPRAVENTRICULAR PREMATURE COMPLEXES POSSIBLE RIGHT VENTRICULAR CONDUCTION DELAY [RSR (QR) IN V1/V2] NONSPECIFIC T-WAVE ABNORMALITY ABNORMAL RHYTHM ECG Compared to ECG 03/09/2025 06:13:55 NO SIGNIFICANT CHANGE Electronically Signed On 03-09-2025 13:41:54 CDT by Geoffrey Orta M.D. [email or web address]
[2025-03-09] MEDS: dilTIAZem ER (24HR) 240 mg Capsule PO (08:38)
--- NOTE | 2025-03-09 10:03 | PC.NURSE ---
Provider is updated that patient is back in Afib with heart rate of 130-140's. Provider ordered amio 150 bolus and amio drip. Order entered.
[2025-03-09] MEDS: amiodarone 150 MG/100 ML PREMIX 400 MG IV (10:14)
--- NOTE | 2025-03-09 10:38 | PC.NURSE ---
Provider is updated about Jesús Cole I started that Amio bolus (this is still running for a few more minutes) and he has converted back to SR with a HR of 88-96. Continue amio drip? Provider ordered to continue and run the amiodarone drip at 0.5.
[2025-03-09 11:22] LABS: INR 1.79 (0.8-1.2); Prothrombin Time 21.90 SECONDS (12.1-14.9)
--- NOTE | 2025-03-09 11:41 | PC.SOCIAL ---
*IMM* Completed, initialed, dated and timed in the chart. Copy received by patient.
[2025-03-09] MEDS: methylPREDNISolone sod succ 125 mg/2 mL INJ IVP (11:57)
--- NOTE | 2025-03-09 14:15 | P.PN_ITS ---
Subjective 2 Subjective: Patient was seen this morning, reports generalized weakness, fatigue,, currently in A-fib with RVR, heart rates in the 140s, also reports wheezing, reports a prior history of smoking, during her conversations he becomes short of breath with a few a few words, has mild nasal flaring Vitals/I&O/Wt Last Vital Signs Temp 97.9 F 03/09/25 11:55 Pulse 100 03/09/25 11:55 Resp 20 H 03/09/25 11:55 BP 104/54 03/09/25 11:55 Pulse Ox 92 03/09/25 11:55 O2 Del Method Nasal Cannula 03/09/25 11:55 O2 Flow Rate 3 03/09/25 11:55 03/08/25 03/09/25 03/09/25 22:59 06:59 14:59 Intake Total 300 / 300 700 / 700 Output Total 300 / 300 100 / 100 Balance 0 / 0 600 / 600 Weight last 48 hrs Weight 81.374 kg Weight 81.193 kg Weight 75.206 kg Physical Exam 2 Const: COMMON NORMALS: no acute distress and patient oriented x3 Resp: COMMON NORMALS: normal respiratory effort, No retractions and No use of accessory muscles AUSCULTATION: crackles and wheezes Cardio: COMMON NORMALS: regular rate, regular rhythm, S1 normal heart sound present and S2 normal heart sound present RATE: regular rate RHYTHM: r egular rhythm HEART SOUNDS: S1 normal heart sound present and S2 normal heart sound present GI: COMMON NORMALS: Normal to inspection, nondistended, normoactive bowel sounds present and non-tender Extremity: COMMON NORMALS: no pedal edema Neuro: COMMON NORMALS: patient oriented x3, CN's II-XII intact bilaterally and moves all extremities Psych: COMMON NORMALS: mental status grossly normal Data 03/09/25 01:39 03/09/25 01:39 Micro: Microbiology 03/09/25 01:39 Blood Culture - Preliminary Blood SPECIMEN COLLECTED 03/09/25 01:35 Blood Culture - Preliminary Blood SPECIMEN COLLECTED A&P Assessment and plan 1. CAP (community acquired pneumonia): 2. Productive cough: 3. Leukocytosis: 4. CHF (congestive heart failure): 5. 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 Acute exacerbation of chronic obstructive pulmonary disease: Plan: Community-acquired pneumonia - Continue Rocephin - Continue Zithromycin COPD exacerbation - Continue Solu-Medrol 40 mg IV every 8 hours, after Solu-Medrol 125 - DuoNeb - Budesonide A-fib with RVR - Amiodarone bolus - Amiodarone drip - Continue Coumadin History of CLL ZONIA on CKD, monitor NSTEMI - No chest pain complaints - Serial EKGs, short troponins, telemetry monitoring - Continue Coumadin Full code Coumadin for DVT prophylaxis PDMP PDMP Reviewed: Not Reviewed Attestations 2 Medical Necessity Statement*: Patient requires hospitalization for community-acquired pneumonia, COPD aspiration, A-fib with RVR, NSTEMI Diagnoses CAP (community acquired pneumonia) J18.9 Productive cough R05.8 Leukocytosis D72.829 CHF (congestive heart failure) I50.9 CKD stage 3b, GFR 30-44 ml/min N18.32 Acute exacerbation of chronic obstructive pulmonary disease J44.1
--- NOTE | 2025-03-09 16:18 | PC.NURSE ---
Provider is contacted about Jesús Cole, I gave him warfarin 3mg at 1415 and now he has heparin 5000 SQ. I just want to confirm that you want him to have both. Provider ordered to discontinue the heparin shot.
[2025-03-10] VITALS (12 sets, daily range): BP systolic 103–120; BP diastolic 67–75; PULSE 75–140; RESP 11–23; TEMP 36.6–36.7; O2SAT 93–97
[2025-03-10 03:24] LABS: Hematocrit 34.6 % (37-53); Hemoglobin 11.20 g/dL (11.27-16.99); Mean Corpuscular HGB Conc 32.4 g/dL (30-55); Mean Corpuscular Hemoglobin 29.8 pg (27-33); Mean Corpuscular Volume 92.0 fl (82-101); Nucleated Red Blood Cells % 0 %; Platelet Count 210 10^3/cmm (157-399); Red Blood Count 3.76 10^6/uL (3.85-5.65); White Blood Count 24.56 10^3/uL (3.29-11.43)
[2025-03-10 03:47] LABS: Alanine Aminotransferase 11 U/L (0-41); Albumin Level 3.2 g/dL (3.5-5.2); Alkaline Phosphatase 119 U/L (40-130); Anion Gap 18.3 (5-19); Aspartate Amino Transferase 13 U/L (0-40); Blood Urea Nitrogen 51 mg/dL (8-23); Calcium 8.6 mg/dL (8.5-10.5); Carbon Dioxide 20 mmol/L (22-29); Chloride 96 mmol/L (98-107); Creatinine Clr Calc Pharmacy 22.5993; Globulin 2.6 g/dL (1.3-4.6); Glucose 243 mg/dL (65-115); Magnesium 2.1 mg/dL (1.7-2.3); Osmolality Calculated 292 mOsm/kg (285-295); Potassium 4.3 mmol/L (3.5-5.1); Sodium 130 mmol/L (136-145); Total Protein 5.8 g/dL (6.6-8.7)
[2025-03-10 03:50] LABS: INR 2.38 (0.8-1.2); Prothrombin Time 27.30 SECONDS (12.1-14.9)
[2025-03-10 04:22] LABS: Estmated Average Glucose 123; Hemoglobin A1C 5.9 % (4.0-6.0)
[2025-03-10] MEDS: methylPREDNISolone sod succ 40 mg/mL INJ IVP ×3 (06:47→23:29)
[2025-03-10] MEDS: cefTRIAXone 2,000 mg SDV 2000 MG IVP (06:47)
--- NOTE | 2025-03-10 07:22 | PC.NURSE ---
Around 0111 patient was standing on side of the bed using urinal with this nurse. The patient went into AF HR in the 140's and sustained more than [address] Simon regarding this change. Discussed patient is currently on amiodarone gtt, current VS, and assessment findings. Awaiting reply. Shortly after patient HR slowed down to 100-110's [address] AF[address] Simon back regarding the slowing down. Received orders to monitor.
[2025-03-10] MEDS: dilTIAZem ER (24HR) 240 mg Capsule PO (08:11)
--- NOTE | 2025-03-10 09:01 | PC.CHAP ---
Pastoral Care Encounter/Spiritual Assessment Type of Contact [] Declined fish cutter visit [] Patient/Family/Request visit [] Outpatient visit [] Follow-up visit [] Physician referral [] Code/Alert [x] Routine visit [] Staff referral [] Actively dying [] Patient sleeping [] Family support [] [] Out of room [] Palliative care [] [] Receiving care in room [] Pre-surgical visit [] Trauma [] Long length of stay [] ICU visit [] Other: Relational/Emotional Strength [x] Patient feels connected with others/family/visitors/staff [] Distress [] Loneliness/isolation [] Abandonment Spirituality of Patient [x] Person of Shefali [] Attends Hindu of their Shefali [x] Believes in Prayer [] Reads Bible or Alevism materials [] There are Spiritual issues to be addressed Wood Car Builder Interventions [x] Prayer [x] Active listening [] Non-anxious presence [x] Spiritual/emotional support [] Crisis/trauma care [] Spiritual counseling [] Bereavement support [] Provided bereavement packet [] Provided Bible/devotional materials [] Provided toy/stuffed animal, coloring book to patient or family member [] Provided Communion [] Anointing/[place] [] Salvation [x] Completed spiritual assessment [] Other: Impact on Illness or Injury [] Angry [] Fearful [] Anxious [] Often cries [] Exhaustion [] Unable to work [] Unable to attend adventism [] Unable to walk/stand [] Unable to read [] Unable to drive [] Unable to eat/drink [] Unable to sleep [] Unable to be with family [] Patient intubated [] Other: Summary Time spent with patient 5 min
[2025-03-10 09:23] LABS: NT Pro B Type Natriuretic Pept 4759 pg/mL (0-450)
[2025-03-10 12:53] LABS: Anion Gap 18.4 (5-19); Blood Urea Nitrogen 58 mg/dL (8-23); Calcium 8.7 mg/dL (8.5-10.5); Carbon Dioxide 21 mmol/L (22-29); Chloride 94 mmol/L (98-107); Creatinine Clr Calc Pharmacy 21.7922; Glucose 181 mg/dL (65-115); Osmolality Calculated 289 mOsm/kg (285-295); Potassium 4.4 mmol/L (3.5-5.1); Sodium 129 mmol/L (136-145)
--- NOTE | 2025-03-10 16:27 | P.PN_ITS ---
Subjective 2 Subjective: Patient was seen this morning, currently alert oriented x 3, following all commands, his shortness of breath is improving, no fevers, no chills, no nausea, no vomiting does have persistent wheezing Vitals/I&O/Wt Last Vital Signs Temp 97.9 F 03/10/25 07:08 Pulse 140 H 03/10/25 15:35 Resp 18 03/10/25 15:27 BP 113/67 03/10/25 07:08 Pulse Ox 93 03/10/25 15:27 O2 Del Method Room Air 03/10/25 15:27 O2 Flow Rate 2 03/10/25 11:11 03/10/25 03/10/25 03/10/25 06:59 14:59 22:59 Intake Total 480 / 1500 754.753 / 754.753 Output Total 200 / 300 Balance 280 / 1200 754.753 / 754.753 Weight last 48 hrs Weight 83.189 kg Weight 81.374 kg Weight 81.193 kg Weight 75.206 kg Physical Exam 2 Const: COMMON NORMALS: no acute distress and patient oriented x3 Resp: COMMON NORMALS: normal respiratory effort, No retractions and No use of accessory muscles AUSCULTATION: wheezes Cardio: COMMON NORMALS: S1 normal heart sound present and S2 normal heart sound present RATE: tachycardic RHYTHM: abnormal rhythm irregularly irregular HEART SOUNDS: S1 normal heart sound present and S2 normal heart sound present GI: COMMON NORMALS: Normal to inspection, nondistended, normoactive bowel sounds present and non-tender Extremity: COMMON NORMALS: no pedal edema Neuro: COMMON NORMALS: patient oriented x3 Psych: COMMON NORMALS: mental status grossly normal Data 03/10/25 03:01 03/10/25 11:49 Micro: Microbiology 03/09/25 01:39 Blood Culture - Preliminary Blood NEGATIVE TO DATE 03/09/25 01:35 Blood Culture - Preliminary Blood NEGATIVE TO DATE A&P Assessment and plan 1. CAP (community acquired pneumonia): 2. Productive cough: 3. Leukocytosis: 4. CHF (congestive heart failure): 5. 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 Acute exacerbation of chronic obstructive pulmonary disease: Plan: Community-acquired pneumonia - Continue Rocephin - Continue Zithromycin COPD exacerbation - De-escalate to prednisone 40 mg daily - DuoNeb - Budesonide A-fib with RVR - Transition to p.o. amiodarone - Continue Coumadin History of CLL ZONIA on CKD, monitor NSTEMI - No chest pain complaints - Serial EKGs, short troponins, telemetry monitoring - Continue Coumadin Full code Coumadin for DVT prophylaxis PDMP PDMP Reviewed: Not Reviewed Attestations 2 Medical Necessity Statement*: Patient requires hospitalization, for [facility] pneumonia, COPD exacerbation, atrial fibrillation Diagnoses CAP (community acquired pneumonia) J18.9 Productive cough R05.8 Leukocytosis D72.829 CHF (congestive heart failure) I50.9 CKD stage 3b, GFR 30-44 ml/min N18.32 Acute exacerbation of chronic obstructive pulmonary disease J44.1
[2025-03-11] VITALS (17 sets, daily range): BP systolic 110–124; BP diastolic 56–73; PULSE 80–119; RESP 18–31; TEMP 36–36.9; O2SAT 90–95; BMI 26.2
[2025-03-11 04:54] LABS: Hematocrit 37.9 % (37-53); Hemoglobin 12.30 g/dL (11.27-16.99); Mean Corpuscular HGB Conc 32.5 g/dL (30-55); Mean Corpuscular Hemoglobin 29.7 pg (27-33); Mean Corpuscular Volume 91.5 fl (82-101); Nucleated Red Blood Cells % 0 %; Platelet Count 273 10^3/cmm (157-399); Red Blood Count 4.14 10^6/uL (3.85-5.65); White Blood Count 27.30 10^3/uL (3.29-11.43)
[2025-03-11 05:16] LABS: INR 2.25 (0.8-1.2); Prothrombin Time 26.10 SECONDS (12.1-14.9)
[2025-03-11 05:29] LABS: Anion Gap 21.9 (5-19); Blood Urea Nitrogen 73 mg/dL (8-23); Calcium 8.9 mg/dL (8.5-10.5); Carbon Dioxide 21 mmol/L (22-29); Chloride 93 mmol/L (98-107); Creatinine Clr Calc Pharmacy 19.6833; Glucose 194 mg/dL (65-115); Osmolality Calculated 299 mOsm/kg (285-295); Potassium 4.9 mmol/L (3.5-5.1); Sodium 131 mmol/L (136-145)
[2025-03-11] MEDS: methylPREDNISolone sod succ 40 mg/mL INJ IVP (06:18)
[2025-03-11] MEDS: cefTRIAXone 2,000 mg SDV 2000 MG IVP (06:18)
--- NOTE | 2025-03-11 06:33 | PC.NURSE ---
Notified Dr. Bauman that patient only received 500 mg of IVP rocephin before IV started infiltrating. At this time patient is refusing an IV, discussed allergies to PCN. INMAN to let day shift team know.
[2025-03-11] MEDS: dilTIAZem ER (24HR) 240 mg Capsule PO (08:05)
--- NOTE | 2025-03-11 09:33 | PC.SOCIAL ---
IMM Update Updated pt on IMM. No questions voiced. Provided pt a copy. Initialed,dated, & timed a copy & placed in chart.
--- NOTE | 2025-03-11 09:44 | PC.CHAP ---
Pastoral Care Encounter/Spiritual Assessment Type of Contact [] Declined conservation technician visit [] Patient/Family/Request visit [] Outpatient visit [] Follow-up visit [] Physician referral [] Code/Alert [x] Routine visit [] Staff referral [] Actively dying [] Patient sleeping [] Family support [] [] Out of room [] Palliative care [] [] Receiving care in room [] Pre-surgical visit [] Trauma [] Long length of stay [] ICU visit [] Other: Relational/Emotional Strength [x] Patient feels connected with others/family/visitors/staff [] Distress [] Loneliness/isolation [] Abandonment Spirituality of Patient [x] Person of Shefali [] Attends Adventist of their Shefali [x] Believes in Prayer [] Reads Bible or Buddhist materials [] There are Spiritual issues to be addressed 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 Interventions [x] Prayer [x] Active listening [x] Non-anxious presence [x] Spiritual/emotional support [] Crisis/trauma care [] Spiritual counseling [] Bereavement support [] Provided bereavement packet [] Provided Bible/devotional materials [] Provided toy/stuffed animal, coloring book to patient or family member [] Provided Communion [] Anointing/[place] [] Salvation [x] Completed spiritual assessment [] Other: Impact on Illness or Injury [] Angry [] Fearful [] Anxious [] Often cries [] Exhaustion [] Unable to work [] Unable to attend sabianism [] Unable to walk/stand [] Unable to read [] Unable to drive [] Unable to eat/drink [] Unable to sleep [] Unable to be with family [] Patient intubated [] Other: Summary Time spent with patient 5 min
[2025-03-11 12:17] LABS: Anion Gap 21.9 (5-19); Blood Urea Nitrogen 78 mg/dL (8-23); Calcium 8.7 mg/dL (8.5-10.5); Carbon Dioxide 20 mmol/L (22-29); Chloride 93 mmol/L (98-107); Creatinine Clr Calc Pharmacy 17.4338; Glucose 212 mg/dL (65-115); Osmolality Calculated 300 mOsm/kg (285-295); Potassium 4.9 mmol/L (3.5-5.1); Sodium 130 mmol/L (136-145)
--- NOTE | 2025-03-11 13:29 | USR_ITS ---
PROCEDURE INFORMATION: Exam: US Retroperitoneal, Complete, Kidneys and Bladder Exam date and time: 03/11/2025 4:44 PM Age: 85 years old Clinical indication: Screening exam; Other: Hugh TECHNIQUE: Imaging protocol: Real-time ultrasound of the retroperitoneum with image documentation. Complete exam focused on the bilateral kidneys and urinary bladder. COMPARISON: US renal BI* [id number] 09/03/2023 7:18 AM FINDINGS: Right kidney: Mildly echogenic. Small cortical cysts. No stones. No hydronephrosis. Left kidney: Mildly echogenic. Small cortical cysts. No stones. No hydronephrosis. Urinary bladder: Unremarkable. Prostate: Prostate measures 3.55 x 3.07 x 4.59 cm. US/US renal BI* [id number] IMPRESSION: 1. Mildly echogenic bilateral renal parenchyma, which may be seen with medical renal disease. 2. Simple bilateral renal cysts.
--- NOTE | 2025-03-11 13:29 | P.PN_ITS ---
Subjective 2 Subjective: Patient was seen this morning, current alert oriented x 3, following commands, his shortness of breath is improving, did discuss his elevated heart rates upon exertion, heart rates do increase into the 120s, denies any nausea, no vomiting, no lightheadedness, no dizziness, we discussed his elevated creatinine up to 3.2, discussed rechecking his creatinine this afternoon if it continues to be elevated will start on IV fluids and monitor serum sodium and creatinine for 24 hours, if his heart rates remain in the high 120s especially with exertion we will have to start him on a beta-ammon, he is in agreement Vitals/I&O/Wt Last Vital Signs Temp 97.9 F 03/11/25 08:00 Pulse 110 H 03/11/25 11:59 Resp 20 H 03/11/25 11:59 BP 110/56 03/11/25 11:59 Pulse Ox 91 03/11/25 11:59 O2 Del Method Room Air 03/11/25 11:17 O2 Flow Rate 2 03/11/25 07:38 03/10/25 03/11/25 03/11/25 22:59 06:59 14:59 Intake Total 360 / 1114.753 840 / 840 Output Total 300 / 300 100 / 400 Balance 60 / 814.753 -100 / 714.753 840 / 840 Weight last 48 hrs Weight 83.189 kg Physical Exam 2 Const: COMMON NORMALS: no acute distress and patient oriented x3 Resp: COMMON NORMALS: normal respiratory effort, No retractions and No use of accessory muscles AUSCULTATION: crackles and wheezes Cardio: COMMON NORMALS: S1 normal heart sound present and S2 normal heart sound present RATE: tachycardic RHYTHM: abnormal rhythm HEART SOUNDS: S 1 normal heart sound present and S2 normal heart sound present GI: COMMON NORMALS: Normal to inspection, nondistended, normoactive bowel sounds present and non-tender Extremity: COMMON NORMALS: no pedal edema Neuro: COMMON NORMALS: patient oriented x3 Psych: COMMON NORMALS: mental status grossly normal Data 03/11/25 04:11 03/11/25 11:47 A&P Assessment and plan 1. CAP (community acquired pneumonia): 2. Productive cough: 3. Leukocytosis: 4. CHF (congestive heart failure): 5. 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 Acute exacerbation of chronic obstructive pulmonary disease: Plan: Community-acquired pneumonia - Continue Rocephin - Continue Zithromycin COPD exacerbation - De-escalate to prednisone 40 mg daily - DuoNeb - Budesonide A-fib with RVR - Transition to p.o. amiodarone, heart rates remain in the high 120s especially at exertion, add metoprolol - Continue Coumadin History of CLL ZONIA on CKD, creatinine up to 3.2, now 3.5, renal ultrasound, IV fluids Hyponatremia - With increased serum osmolality - Check urine sodium - IV fluids NSTEMI - No chest pain complaints - Serial EKGs, short troponins, telemetry monitoring - Continue Coumadin Full code Coumadin for DVT prophylaxis PDMP PDMP Reviewed: Not Reviewed Attestations 2 Medical Necessity Statement*: Patient requires hospitalization for community-acquired pneumonia, COPD, A-fib, ZONIA on CKD Diagnoses CAP (community acquired pneumonia) J18.9 Productive cough R05.8 Leukocytosis D72.829 CHF (congestive heart failure) I50.9 CKD stage 3b, GFR 30-44 ml/min N18.32 Acute exacerbation of chronic obstructive pulmonary disease J44.1
[2025-03-11 18:41] LABS: Urine Random Sodium 21 mmol/L
[2025-03-12] VITALS (8 sets, daily range): BP systolic 95–128; BP diastolic 65–77; PULSE 73–92; RESP 17–20; TEMP 36.3–36.4; O2SAT 90–97; BMI 27.1
[2025-03-12 04:29] LABS: Hematocrit 34.6 % (37-53); Hemoglobin 11.50 g/dL (11.27-16.99); Mean Corpuscular HGB Conc 33.2 g/dL (30-55); Mean Corpuscular Hemoglobin 30.3 pg (27-33); Mean Corpuscular Volume 91.1 fl (82-101); Nucleated Red Blood Cells % 0 %; Platelet Count 254 10^3/cmm (157-399); Red Blood Count 3.80 10^6/uL (3.85-5.65); White Blood Count 22.89 10^3/uL (3.29-11.43)
[2025-03-12 04:49] LABS: INR 2.35 (0.8-1.2); Prothrombin Time 27.10 SECONDS (12.1-14.9)
--- NOTE | 2025-03-12 04:55 | PC.NURSE ---
Patient developed crackles in lung bases, fluids paused. Dr Bauman notified. No new orders placed.
[2025-03-12 04:56] LABS: Anion Gap 17.8 (5-19); Blood Urea Nitrogen 76 mg/dL (8-23); Calcium 8.5 mg/dL (8.5-10.5); Carbon Dioxide 22 mmol/L (22-29); Chloride 97 mmol/L (98-107); Creatinine Clr Calc Pharmacy 18.4838; Glucose 192 mg/dL (65-115); Osmolality Calculated 302 mOsm/kg (285-295); Potassium 4.8 mmol/L (3.5-5.1); Sodium 132 mmol/L (136-145)
[2025-03-12] MEDS: cefTRIAXone 2,000 mg SDV 2000 MG IVP (05:45)
[2025-03-12] MEDS: dilTIAZem ER (24HR) 240 mg Capsule PO (08:24)
--- NOTE | 2025-03-12 11:46 | PM.DCS ---
Discharge Providers Date of Admission: 03/09/25 03:29 Date of Discharge: March 12, 2025 Attending Provider at Admission: Yola Simon MD Attending Provider at Discharge: Je Rodriguez MD Primary Care Provider: Autumn Pierre DO Diagnoses at Discharge Discharge Diagnosis 1. Community acquired pneumonia of right lower lobe of lun. Productive cough: 3. Leukocytosis: 4. CHF (congestive heart failure): 5. 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 Acute exacerbation of chronic obstructive pulmonary disease: Reason for Visit Reason for Visit: SOB Hospital Course Hospital Course This is a 85-year-old male with a past medical history of CKD, CLL, type 2 diabetes, history of dementia, bradycardia, COPD, who presents to [facility] for cough, shortness of breath Patient was admitted to [facility] for community-acquired pneumonia, received IV antibiotics, as inpatient, overall clinically improved, discharged on p.o. antibiotics For COPD exacerbation, received IV steroids, overall clinically improved, discharged on oral steroids For A-fib with RVR, managed on amiodarone drip, transition to p.o. amiodarone with metoprolol For ZONIA on CKD, monitored as inpatient, creatinine 2.8 at discharge Acute on chronic hyponatremia, requiring IV hydration during hospitalization, improved to 131 at discharge WBC 22.8 at discharge, component from pneumonia/steroids/CLL, discharged with close follow-up with primary care provider as outpatient Physical Exam Const: COMMON NORMALS: no acute distress and patient oriented x3 Resp: COMMON NORMALS: normal respiratory effort, No retractions, No use of accessory muscles and clear to auscultation bilaterally AUSCULTATION: clear to auscultation bilaterally Cardio: COMMON NORMALS: regular rate, regular rhythm, S1 normal heart sound present and S2 normal heart sound present RATE: regular rate RHYTHM: regular rhythm HEART SOUNDS: S1 normal heart sound present and S2 normal heart sound present GI: COMMON NORMALS: Normal to inspection, nondistended, normoactive bowel sounds present and non-tender Extremity: COMMON NORMALS: no pedal edema Neuro: COMMON NORMALS: patient oriented x3 Psych: COMMON NORMALS: mental status grossly normal Discharge Data Studies Completed and Pending Completed Studies During Hospitalization Category Date Time Status XR chest 1V portable [id number] Stat Exams 03/09/25 01:03 Completed US renal BI* [id number] Routine Ultrasound 03/11/25 13:29 Completed Pending at discharge Category Date Time Status BMP [Basic Metabolic Panel] Routine Lab 03/12/25 12:00 Ordered Basic Metabolic Panel AM LABS Lab 03/13/25 04:00 Ordered Blood Culture Stat Lab 03/09/25 01:39 Results Complete Blood Count w/Auto AM LABS Lab 03/13/25 04:00 Ordered Radiology Impressions Chest X-Ray 03/09/25 01:03 IMPRESSION: Bibasilar interstitial opacification, which may be setting of interstitial pneumonia, edema, and/or interstitial lung. Renal Ultrasound 03/11/25 13:29 IMPRESSION: 1. Mildly echogenic bilateral renal parenchyma, which may be seen with medical renal disease. 2. Simple bilateral renal cysts. Laboratory Results WBC 22.89 10^3/uL (3.29-11.43) H 03/12/25 04:07 Corrected WBC Cancelled 03/09/25 01:10 RBC 3.80 10^6/uL (3.85-5.65) L 03/12/25 04:07 Hgb 11.50 g/dL (11.27-16.99) 03/12/25 04:07 Hct 34.6 % (37-53) L 03/12/25 04:07 MCV 91.1 fl (82-101) 03/12/25 04:07 MCH 30.3 pg (27-33) 03/12/25 04:07 MCHC 33.2 g/dL (30-55) 03/12/25 04:07 RDW 15.3 % (12.1-15.1) H 03/12/25 04:07 Plt Count 254 10^3/cmm (157-399) 03/12/25 04:07 MPV 10.1 fL (7.4-10.4) 03/12/25 04:07 Gran % Cancelled 03/09/25 01:10 Neut % (Auto) 76.7 % 03/12/25 04:07 Lymph % (Auto) 17.6 % 03/12/25 04:07 [place] % (Auto) 4.3 % 03/12/25 04:07 Eos % (Auto) 0.0 % 03/12/25 04:07 Baso % (Auto) 0.1 % 03/12/25 04:07 Neut # (Auto) 17.55 10^3/uL (1.8-7.7) H 03/12/25 04:07 Lymph # (Auto) 4.0 10^3/uL (0.8-4.8) 03/12/25 04:07 [place] # (Auto) 1.0 10^3/uL (0.2-0.9) H 03/12/25 04:07 Eos # (Auto) 0.0 10^3/uL (0.0-0.8) 03/12/25 04:07 Baso # (Auto) 0.0 10^3/uL (0.0-0.1) 03/12/25 04:07 Absolute Gran (auto) Cancelled 03/09/25 01:10 Nucleated RBC % (auto) 0 % 03/12/25 04:07 Nucleated RBCs # 0.0 /100WBC 03/12/25 04:07 PT 27.10 SECONDS (12.1-14.9) H 03/12/25 04:07 INR 2.35 (0.8-1.2) H 03/12/25 04:07 Specimen Type Arterial 03/09/25 01:15 Sample Site Brachial, right 03/09/25 01:15 ABG pH 7.35 (7.35-7.45) 03/09/25 01:15 ABG pCO2 37.4 mmHg (35-45) 03/09/25 01:15 ABG pO2 69.4 mmHg (80.0-100.0) L 03/09/25 01:15 ABG PO2/FiO2 Ratio 216 03/09/25 01:15 ABG HCO3 20.8 mmol/L (22-26) L 03/09/25 01:15 ABG Base Excess -4.2 mmol/L (-2.0-2.0) L 03/09/25 01:15 Hema Test Pos 03/09/25 01:15 Hematocrit 41.5 % (42-52) L 03/09/25 01:15 Hgb O2 Saturation 92.4 % (95-100) L 03/09/25 01:15 Carboxyhemoglobin 1.1 %THgb (0.4-20.1) 03/09/25 01:15 Methemoglobin 1.0 % (0.4-1.5) 03/09/25 01:15 Total Hemoglobin 13.5 g/dL (14-18) L 03/09/25 01:15 O2 Delivery Device Nc 03/09/25 01:15 O2 Liters/Min 3.0 % 03/09/25 01:15 FiO2 32.0 % 03/09/25 01:15 Leaf Sorter ID Bd 03/09/25 01:15 Sodium 132 mmol/L (136-145) L 03/12/25 04:07 Potassium 4.8 mmol/L (3.5-5.1) 03/12/25 04:07 Chloride 97 mmol/L (98-107) L 03/12/25 04:07 Carbon Dioxide 22 mmol/L (22-29) 03/12/25 04:07 Anion Gap 17.8 (5-19) 03/12/25 04:07 BUN 76 mg/dL (8-23) H 03/12/25 04:07 Creatinine 3.3 mg/dL (0.7-1.2) H 03/12/25 04:07 GFR Calculation Not Reportable 03/12/25 04:07 Glucose 192 mg/dL (65-115) H 03/12/25 04:07 POC Glucose 122 mg/dL (70-110) H 03/12/25 10:58 Estimat Average Glucose 123 03/10/25 03:01 Hemoglobin A1c 5.9 % (4.0-6.0) 03/10/25 03:01 Calculated Osmolality 302 mOsm/kg (285-295) H 03/12/25 04:07 Lactic Acid 1.5 mmol/L (0.5-2.2) 03/09/25 01:39 Calcium 8.5 mg/dL (8.5-10.5) 03/12/25 04:07 Phosphorus 3.3 mg/dL (2.5-4.5) 03/10/25 03:01 Magnesium 2.1 mg/dL (1.7-2.3) 03/10/25 03:01 Total Bilirubin 0.2 mg/dL (0.15-1.2) 03/10/25 03:01 AST 13 U/L (0-40) 03/10/25 03:01 ALT 11 U/L (0-41) 03/10/25 03:01 Alkaline Phosphatase 119 U/L (40-130) 03/10/25 03:01 Troponin T Baseline 89 ng/L (0-15) H 03/09/25 01:39 Troponin T 120 Minute 87.71 ng/L (0-15) H 03/09/25 03:27 Delta Troponin T -1.29 ABS# (0-10) L 03/09/25 03:27 Troponin T Hi Sens 6Hr 86.23 ng/L (0-15) H 03/09/25 06:59 Troponin T Hi Sens 6Hr Delta -2.77 ng/L (0-12) L 03/09/25 06:59 NT-Pro-B Natriuret Pep 4759 pg/mL (0-450) H 03/10/25 03:01 Total Protein 5.8 g/dL (6.6-8.7) L 03/10/25 03:01 Albumin 3.2 g/dL (3.5-5.2) L 03/10/25 03:01 Globulin 2.6 g/dL (1.3-4.6) 03/10/25 03:01 Ur Random Sodium 21 mmol/L 03/11/25 16:36 Influenza A (PCR) Negative (Negative) 03/09/25 01:10 Influenza Type B (PCR) Negative (Negative) 03/09/25 01:10 RSV (PCR) Negative (Negative) 03/09/25 01:10 SARS-CoV-2 (PCR) Negative (Negative) 03/09/25 01:10 Vitals Last Vital Signs Temp 97.5 F L 03/12/25 11:38 Pulse 92 03/12/25 11:38 Resp 18 03/12/25 11:38 BP 128/77 03/12/25 11:38 Pulse Ox 97 03/12/25 11:38 O2 Del Method Room Air 03/12/25 11:38 O2 Flow Rate 2 03/11/25 07:38 Discharge Plan Discharge Patient Disposition: Home Health Service Condition: Fair Prescriptions: New amiodarone [Pacerone] 200 mg Tablet See Rx Instructions .ROUTE .COMPLEX Qty: 60 0RF Rx Instructions: 400mg (2tab) bid for 3 days, 200mg(1tab) bid for 3 days, then 1 tab daily metoprolol tartrate 25 mg Tablet 12.5 mg PO BID 30 Days Qty: 30 0RF Continued famotidine 20 mg tablet 20 mg PO BID Qty: 60 3RF diltiazem HCl 240 mg capsule,extended release 24 hr 240 mg PO DAILY Qty: 90 1RF allopurinol 300 mg tablet 150 mg PO QAM Qty: 90 1RF albuterol sulfate 90 mcg/actuation HFA aerosol inhaler 2 puff inhalation Q4H PRN (Reason: Shortness Of Breath) Qty: 8.5 6RF atorvastatin 20 mg tablet 20 mg PO BEDTIME Qty: 90 0RF tamsulosin [Flomax] 0.4 mg capsule 0.4 mg PO BEDTIME Qty: 90 1RF citalopram 40 mg tablet 40 mg PO DAILY Qty: 90 1RF warfarin 4 mg tablet 4 mg PO DAILY Qty: 90 3RF Protocol: Dose Management Condition: Sunday Dose/Route: 3 mg Instruction: 1 x 3 mg tablet Condition: Sunday Dose/Route: 3 mg Instruction: 1 x 3 mg tablet Condition: Sunday Dose/Route: 4 mg Instruction: 1 x 4 mg tablet Condition: Sunday Dose/Route: 3 mg Instruction: 1 x 3 mg tablet Condition: Dose/Route: 3 mg Instruction: 1 x 3 mg tablet Condition: Sunday Dose/Route: 3 mg Instruction: 1 x 3 mg tablet Condition: Sunday Dose/Route: 3 mg Instruction: 1 x 3 mg tablet Protocol Text: Adjustment Start Date: Sunday03/16/25 INR Value: 2.4 INR Date: 03/16/25 Recheck Date: 03/23/25 docusate sodium [Colace] 100 mg Capsule 100 mg PO BID PRN (Reason: Constipation) Tradjenta 5 mg Tablet 5 mg PO DAILY PreserVision AREDS-2 250-90-40-1 mg Capsule 1 tab PO BID hydrocodone-acetaminophen 5-325 mg tablet 1 - 2 tab PO .Q4-6H PRN (Reason: Pain) warfarin 3 mg tablet See Rx Instructions .ROUTE .COMPLEX Protocol: Dose Management Condition: Sunday Dose/Route: 3 mg Instruction: 1 x 3 mg tablet Condition: Sunday Dose/Route: 3 mg Instruction: 1 x 3 mg tablet Condition: Sunday Dose/Route: 4 mg Instruction: 1 x 4 mg tablet Condition: Sunday Dose/Route: 3 mg Instruction: 1 x 3 mg tablet Condition: Dose/Route: 3 mg Instruction: 1 x 3 mg tablet Condition: Sunday Dose/Route: 3 mg Instruction: 1 x 3 mg tablet Condition: Sunday Dose/Route: 3 mg Instruction: 1 x 3 mg tablet Protocol Text: Adjustment Start Date: Sunday03/16/25 INR Value: 2.4 INR Date: 03/16/25 Recheck Date: 03/23/25 Rx Instructions: Take 3mg by mouth once daily except take 4mg on Sunday. Held furosemide 40 mg tablet See Rx Instructions .ROUTE .COMPLEX Qty: 90 3RF Hold Instructions: Resume on 03/14/25. Dose Instruction: Take 1 tablet by mouth once daily Rx Instructions: Take 1 tablet by mouth once daily Discharge Order = DC NOW: Discharge Order (Routine); Ordered 03/12/25 Ordered By: Je Rodriguez Referrals: [facility] [Outside] Autumn Pierre DO [Primary Care Provider, [facility]] - 03/19/25 9:00 am Discharge Diet: Cardiac Discharge Activity: Resume usual activity Patient Instructions: Metoprolol (By mouth) (Lopressor, Toprol XL), Doxycycline (By mouth), Prednisone (By mouth), Amoxicillin (By mouth), Amiodarone (By mouth) (Cordarone, Pacerone), Community Acquired Pneumonia (DC), CHF Stoplight, COPD Stoplight, Opioid Safety, Patient Portal & Paulie Instructions Activity Restrictions/Additional Instructions: - Your creatinine on discharge was 3.3, please recheck your kidney function next week - Please take antibiotics as prescribed - Hold Lasix until Sunday Discharge Attestations Time Spent in Discharge Care*: greater than 30 min Quality Metrics Clinical Quality Measures [ No reported AMI, CVA or VTE this stay] Coding Level of Care Code 45539 Total time (in minutes) for Discharge: 45 Diagnoses Community acquired pneumonia of right lower lobe of lung J18.9 Laterality: right Lung location: lower lobe of lung Productive cough R05.8 Leukocytosis D72.829 CHF (congestive heart failure) I50.9 CKD stage 3b, GFR 30-44 ml/min N18.32 Acute exacerbation of chronic obstructive pulmonary disease J44.1
[2025-03-12 13:07] LABS: Anion Gap 20.8 (5-19); Blood Urea Nitrogen 79 mg/dL (8-23); Calcium 8.5 mg/dL (8.5-10.5); Carbon Dioxide 18 mmol/L (22-29); Chloride 97 mmol/L (98-107); Creatinine Clr Calc Pharmacy 22.1019; Glucose 141 mg/dL (65-115); Osmolality Calculated 298 mOsm/kg (285-295); Potassium 4.8 mmol/L (3.5-5.1); Sodium 131 mmol/L (136-145)
== END 2025-03-12 13:22 | disposition home health service (06) | DRG 193 ==
LOC: ER 03:15 → CSU 04:06
PROVIDERS: Internal Medicine; Admitting Provider Internal Medicine; Emergency Provider Emergency Medicine; PCP Family Medicine; Visit Provider Family Medicine
DX: J18.9 Pneumonia, unspecified organism (principal); I21.4 Non-ST elevation (NSTEMI) myocardial infarction; E87.1 Hypo-osmolality and hyponatremia; I13.0 Hypertensive heart and chronic kidney disease with heart failure and stage 1 through stage 4 chronic kidney disease, or unspecified chronic kidney disease; J44.0 Chronic obstructive pulmonary disease with (acute) lower respiratory infection; J44.1 Chronic obstructive pulmonary disease with (acute) exacerbation; N17.9 Acute kidney failure, unspecified; I50.9 Heart failure, unspecified; N18.32 Chronic kidney disease, stage 3b; E11.22 Type 2 diabetes mellitus with diabetic chronic kidney disease; Z79.84 Long term (current) use of oral hypoglycemic drugs; F03.90 Unspecified dementia, unspecified severity, without behavioral disturbance, psychotic disturbance, mood disturbance, and anxiety; I48.91 Unspecified atrial fibrillation; E86.0 Dehydration; F32.9 Major depressive disorder, single episode, unspecified; E78.5 Hyperlipidemia, unspecified; M10.9 Gout, unspecified; K21.9 Gastro-esophageal reflux disease without esophagitis; Z99.81 Dependence on supplemental oxygen; Z87.891 Personal history of nicotine dependence; Z79.01 Long term (current) use of anticoagulants; Z85.6 Personal history of leukemia
CPT/HCPCS: 36415; 36416; 36600; 71045; 76770; 80048; 80053; 82805; 82962; 83036; 83605; 83735; 83880; 84100; 84300; 84484; 85025; 85610; 87040; 87637; 93005; 94640; 96365; 96367; 96372; 96375; 99285; A4222; J0283; J0456; J0696; J1644; J1815; J1938; J2919; J3475; J7030; J7050; J7512; J7614; J7626; J7644; J9999; Q0144

== ENCOUNTER 2025-03-18 12:49 | Outpatient (CLI) | payer MEDICARE, BC, SELFPAY ==
[2025-03-18 13:32] LABS: Hematocrit 34.7 % (37-53); Hemoglobin 10.90 g/dL (11.27-16.99); Mean Corpuscular HGB Conc 31.4 g/dL (30-55); Mean Corpuscular Hemoglobin 29.5 pg (27-33); Mean Corpuscular Volume 93.8 fl (82-101); Nucleated Red Blood Cells % 0 %; Platelet Count 232 10^3/cmm (157-399); Red Blood Count 3.70 10^6/uL (3.85-5.65); White Blood Count 22.60 10^3/uL (3.29-11.43)
[2025-03-18 13:53] LABS: Albumin Level 3.3 g/dL (3.5-5.2); Anion Gap 12.9 (5-19); Blood Urea Nitrogen 44 mg/dL (8-23); Calcium 8.4 mg/dL (8.5-10.5); Carbon Dioxide 27 mmol/L (22-29); Chloride 107 mmol/L (98-107); Glucose 135 mg/dL (65-115); Potassium 5.9 mmol/L (3.5-5.1); Sodium 141 mmol/L (136-145)
[2025-03-18 13:54] LABS: Calcium 8.4 mg/dL (8.5-10.5)
== END 2025-03-18 12:50 | disposition home or self-care (01) ==
LOC: LAB 12:52
PROVIDERS: PCP Family Medicine; Visit Provider Registered Nurse
DX: N18.31 Chronic kidney disease, stage 3a (principal)
CPT/HCPCS: 36415; 80069; 82310; 83970; 85025

== ENCOUNTER → 2025-03-24 10:20 | Outpatient (BNVA) | payer MEDICARE, BC, SELFPAY | PROVIDERS: PCP Family Medicine; Visit Provider Family Medicine | DX: N18.32 Chronic kidney disease, stage 3b (principal) | CPT/HCPCS: 80048 ==

== ENCOUNTER → 2025-03-26 15:30 | Outpatient (BNVA) | payer MEDICARE, BC, SELFPAY | PROVIDERS: PCP Family Medicine; Referring Provider Family Medicine; Visit Provider Internal Medicine | DX: J44.89 Other specified chronic obstructive pulmonary disease (principal); J47.9 Bronchiectasis, uncomplicated; Z99.81 Dependence on supplemental oxygen; Z87.891 Personal history of nicotine dependence; J44.9 Chronic obstructive pulmonary disease, unspecified; T78.40XA Allergy, unspecified, initial encounter; Y99.9 Unspecified external cause status | CPT/HCPCS: 99204; 99214 ==

== ENCOUNTER → 2025-04-13 12:03 | Outpatient (BNVA) | payer MEDICARE, BC, SELFPAY | PROVIDERS: PCP Family Medicine; Visit Provider Family Medicine | DX: N18.32 Chronic kidney disease, stage 3b (principal) | CPT/HCPCS: 80048 ==

== ENCOUNTER → 2025-04-29 16:07 | Outpatient (BNVA) | payer MEDICARE, BC, SELFPAY | PROVIDERS: PCP Family Medicine; Visit Provider Internal Medicine Cardiovascular Disease | DX: I48.91 Unspecified atrial fibrillation (principal); Z79.01 Long term (current) use of anticoagulants; L29.9 Pruritus, unspecified; Z87.891 Personal history of nicotine dependence; I12.9 Hypertensive chronic kidney disease with stage 1 through stage 4 chronic kidney disease, or unspecified chronic kidney disease; E11.22 Type 2 diabetes mellitus with diabetic chronic kidney disease; N18.32 Chronic kidney disease, stage 3b; Z79.84 Long term (current) use of oral hypoglycemic drugs | CPT/HCPCS: 99214 ==

== ENCOUNTER → 2025-05-25 13:03 | Outpatient (BNVA) | payer MEDICARE, BC, SELFPAY | PROVIDERS: PCP Family Medicine; Visit Provider Family Medicine | DX: N18.32 Chronic kidney disease, stage 3b (principal) | CPT/HCPCS: 80048 ==

== ENCOUNTER 2025-06-07 14:51 | Inpatient (IN) | payer MEDICARE, BC, SELFPAY ==
--- OUTSIDE RECORDS SUMMARY | 2023-12-29 03:00 | XMS_ITS ---
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 Name Role Phone Umesh Méndez MD Primary Care Provider Anthony Serrano Unavailable [phone] Migration, Provider Unavailable Unavailable REASON FOR VISIT EMR-[facility] Encounters Encounter Location Date Provider Diagnosis Migrated_Facility 0 0 12/29/2023 Provider Migration Plan Of Treatment Medication Medication Name Sig Start Date Stop Date Notes predniSONE 20 MG Oral Tablet 02/28/2018 018 *Reorder from [facility] for eRx and Interaction Alerts* Amoxicillin 500 MG Oral Capsule 02/28/2018 03/02/2018 *Reorder from [facility] dispan for eRx and Interaction Alerts* Ciprofloxacin HCl 500 MG Tablet Oral 02/28/2018 03/03/2018 HYDROcodone-Acetaminophen 7.5-325 MG Tablet Oral 02/28/2018 03/05/2018 Azithromycin 500 MG Oral Tablet 02/28/2018 03/05/2018 *Reorder from [facility] dispan for eRx and Interaction Alerts* Progress Notes * GAGANDEEP TANNER DDOB:1939 (85 yo M)Acc No.[id number]:12/29/2023 Patient: GAGANDEEP RODRÍGUEZ :1940 A ge:83 Y S ex:Male Address:[address] [place], [place] [address], [place], [address] * Refills Stop Ciprofloxacin HCl Tablet, 500 MG, Oral Stop Ciprofloxacin HCl Tablet, 500 MG, Oral Stop HYDROcodone-Acetaminophen Tablet, 7.5-325 MG, Oral Stop predniSONE 20 MG Oral Tablet Stop Amoxicillin 500 MG Oral Capsule Stop Azithromycin 500 MG Oral Tablet Subjective: * Chief Complaints: * E -Moo * * Date:
--- OUTSIDE RECORDS SUMMARY | 2023-12-30 03:00 | XMS_ITS ---
Author Organization [facility] Address [address] [place] [address] Care Team Providers Care Site Reliability Engineer Name Role Phone Umesh Méndez MD Primary Care Provider Anthony Serrano Unavailable [phone] Migration, Provider Unavailable Unavailable REASON FOR VISIT EMR-Moo Medications Medication SIG (Take, Route, Frequency, Duration) Notes Start Date End Date Status hydroCHLOROthiazide 25 MG Tablet Oral 01/22/2018 8 Active Furosemide 20 MG Tablet Oral 01/22/2018 0 8 Active amLODIPine Besylate 5 MG Tablet Oral 01/22/2018 8 Active Triamcinolone Acetonide 0.001 MG/MG Topical Ointment [facility]* 01/22/2018 8 Active traMADol HCl 50 MG Tablet Oral 01/22/2018 8 Active [id number] ACTUAT albuterol 0.09 MG/ACTUAT Metered Dose Inhaler [Ventolin] *Reorder from [facility] for eRx and Interaction Alerts* 01/22/2018 8 Active Microencapsulated potassium chloride 20 MEQ Extended Release Oral Tablet *Reorder from [facility] for eRx and Interaction Alerts* 01/22/2018 8 Active 30 ACTUAT umeclidinium 0.0625 MG/ACTUAT Dry Powder Inhaler [Incruse] *Reorder from [facility] for eRx and Interaction Alerts* 01/22/2018 8 Active Oxaprozin 600 MG Oral Tablet [facility]* 01/22/2018 8 Active Ibuprofen 800 MG Oral Tablet [facility]* 01/22/2018 8 Active predniSONE 5 MG Oral Tablet [facility]* 02/28/2018 8 Active Social History Social History Additional Details Category Social Info Options Details Migrated Social History Migrated Social History History of tobacco use : , Alcohol intake : , Smoking Status : Never smoked , Smoking Status : Former smoker Encounters Encounter Location Date Provider Diagnosis Migrated_Facility 0 0 12/30/2023 Provider Migration Plan Of Treatment No Information Progress Notes * GAGANDEEP TANNER DDOB:1939 (85 yo M)Acc No.[id number]:12/30/2023 Patient: Chaka ASTUDILLO GAGANDEEP Huang :1940 A ge:83 Y S ex:Male Address:[address] [place] [address], [place], [address] Subjective: * Chief Complaints: * E MR-Moo * Family History: F ather: PRN - Father: :: Cancer,,known absent . M other: PRN - Mother: :: COPD,,known absent . * Social History: M igrated Social History: M igrated Social History: History of tobacco use : , Alcohol intake : , Smoking Status : Never smoked , Smoking Status : Former smoker. * Medications: T akingamLODIPine Besylate 5 MG Tablet Oral , stop date 04/22/2018Furosemide 20 MG Tablet Oral , stop date 01/27/2018hydroCHLOROthiazide 25 MG Tablet Oral , stop date 04/22/2018traMADol HCl 50 MG Tablet Oral , stop date 02/13/2018Triamcinolone Acetonide 0.001 MG/MG Topical Ointment , stop date 02/21/2018, Notes to Pharmacist: *Reorder from [facility] for eRx and Interaction Alerts*predniSONE 5 MG Oral Tablet , stop date 05/29/2018, Notes to Pharmacist: *Reorder from [facility] for eRx and Interaction Alerts*Ibuprofen 800 MG Oral Tablet , stop date 04/22/2018, Notes to Pharmacist: *Reorder from [facility] for eRx and Interaction Alerts*Oxaprozin 600 MG Oral Tablet , stop date 04/22/2018, Notes to Pharmacist: *Reorder from [facility] for eRx and Interaction Alerts*30 ACTUAT umeclidinium 0.0625 MG/ACTUAT Dry Powder Inhaler [Incruse] , stop date 02/21/2018, Notes to Pharmacist: *Reorder from [facility] for eRx and Interaction Alerts*Microencapsulated potassium chloride 20 MEQ Extended Release Oral Tablet , stop date 01/27/2018, Notes to Pharmacist: *Reorder from [facility] for eRx and Interaction Alerts*[id number] 60 ACTUAT albuterol 0.09 MG/ACTUAT Metered Dose Inhaler [Ventolin] , stop date 02/21/2018, Notes to Pharmacist: *Reorder from [facility] for eRx and Interaction Alerts*Taking amLODIPine Besylate 5 MG Tablet Oral , stop date 04/22/2018Taking Furosemide 20 MG Tablet Oral , stop date 01/27/2018Taking hydroCHLOROthiazide 25 MG Tablet Oral , stop date 04/22/2018Taking traMADol HCl 50 MG Tablet Oral , stop date 02/13/2018Taking Triamcinolone Acetonide 0.001 MG/MG Topical Ointment , stop date 02/21/2018, Notes to Pharmacist: *Reorder from [facility] for eRx and Interaction Alerts*Taking predniSONE 5 MG Oral Tablet , stop date 05/29/2018, Notes to Pharmacist: *Reorder from [facility] for eRx and Interaction Alerts*Taking Ibuprofen 800 MG Oral Tablet , stop date 04/22/2018, Notes to Pharmacist: *Reorder from [facility] for eRx and Interaction Alerts*Taking Oxaprozin 600 MG Oral Tablet , stop date 04/22/2018, Notes to Pharmacist: *Reorder from [facility] for eRx and Interaction Alerts*Taking 30 ACTUAT umeclidinium 0.0625 MG/ACTUAT Dry Powder Inhaler [Incruse] , stop date 02/21/2018, Notes to Pharmacist: *Reorder from [facility] for eRx and Interaction Alerts*Taking Microencapsulated potassium chloride 20 MEQ Extended Release Oral Tablet , stop date 01/27/2018, Notes to Pharmacist: *Reorder from [employer] for eRx and Interaction Alerts*Taking [id number] 60 ACTUAT albuterol 0.09 MG/ACTUAT Metered Dose Inhaler [Ventolin] , stop date 02/21/2018, Notes to Pharmacist: *Reorder from [facility] for eRx and Interaction Alerts* * * Date:
[2025-06-07] VITALS (13 sets, daily range): BP systolic 141–183; BP diastolic 79–90; PULSE 67–128; RESP 22–28; TEMP 37; O2SAT 91–98; BMI 23.6
--- OUTSIDE RECORDS SUMMARY | 2025-06-07 14:55 | XMS_ITS | Encounter Summary ---
Author Organization [facility] Address [address] [facility] [place] [address] [place] [address] Phone Care Team Providers Care Accounts Receivable Executive Name Role Phone Autumn Pierre DO Primary Care Provider [phone] Encounter Details Date Type Department Care Team (Late st Contact Info) Description 12/19/2018 Orders Only [email or web address] [address] [address] Chronic kidney disease, not otherwise [...] Care Team (Late st Contact Info) Description 07/22/2025 10:30 AM TAMPER OPERATOR Office Visit [email or web address] [address] [place] [address] Ai Kumar NP [address] [facility] [address] [place] [address] documented as of this encounter Visit Diagnoses Diagnosis Chronic kidney disease, not otherwise specified documented in this encounter Care Teams Accounts Receivable Executive Relationship Specialty Start Date End Date Autumn Pierre DO [address] [facility] [address] [place] [address] PCP - General Family Medicine 09/16/24 documented as of this encounter
--- OUTSIDE RECORDS SUMMARY | 2025-06-07 14:55 | XMS_ITS | Patient Health Record ---
Author Organization [facility] Address [address] [place] [address] Care Team Providers Care Parcel Post Order Clerk Name Role Phone Umesh Méndez MD Primary Care Provider Anthony Serrano Unavailable [phone] Allergies No Known Allergies Reason For Referral No Information Medications Medication SIG (Take, Route, Frequency, Duration) [...] MG Oral Tablet 01/28/2019 Not-Taking Furosemide 01/28/2019 Not-[place] ng Flomax 0.4 MG Capsule 1 capsule Orally Once a day Active Citalopram Hydrobromide Active Pacerone Active Advair Diskus Active Avodart Not-Taking Tradjenta Active Bactrim DS 800-160 MG Tablet 1 tablet Orally Twice a day; Duration: 10 day(s) 01/27/2013 Not-Taking [place] 5-325 MG Tablet 1 tablet as needed [...] as needed Inhalation every 6 hrs Active [place] 5-325 MG Tablet 1 tablet as needed [...] Date Status Comme nts Influenza (whole), CPT 61459 Inactive Unknown 09/17/2017 Administered Influenza (whole), CPT 10504 Inactive Unknown 11/15/2017 Administered Influenza (whole), CPT 85857 Inactive Unknown 01/30/2019 Administered Pneumococcal polysaccharide PPV23 Unknown 08/05/2018 Ad ministered Social History Social History Drugs/Alcohol: Social Info [...] Problem Status W/U Status Risk Notes Problem Information temporarily unavailable Bronchitis, not specified as acute or chronic (490) Active confirmed Problem Information temporarily unavailable Primary osteoarthritis, left shoulder (M19.012) Active confirmed Problem Information temporarily unavailable Secondary osteoarthritis, 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) Active confirmed Problem Information temporarily unavailable Encounter for other preprocedural examination (Z01.818) Active confirmed Problem Information temporarily unavailable Stage 3 severe COPD by GOLD classification (J44.9) Active confirmed Problem Information temporarily unavailable Trigger middle finger of left hand (M65.332) Active confirmed Problem Information temporarily unavailable 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) Active confirmed Problem Information temporarily unavailable 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) Active confirmed Problem Information temporarily unavailable Chronic hypoxic respiratory failure (J96.11) Active confirmed Encounters Encounter Location Date Provider Diagnosis [facility] [address] [place] [address] [place] [address] 09/12/2024 Anthony Spence Plan Of Treatment No Information Insurance Providers Payer Name Payer Address Payer Phone Subscriber Number Group Number Insured Name Patient Relationship to Insured Coverage Start Date Coverage End Date [place] [address] [place] [phone] [id number] GAGANDEEP TANNER Self - patient is the insured BCBS Supplement [address] [place] [address] [id number] GAGANDEEP TANNER Self - patient is [...] long and small A1 kip trigger f [place] release 05/12/2020 Left long finger trigger release 022 Hospitalization History Reason Date(Month/Year) right knee replacement
--- OUTSIDE RECORDS SUMMARY | 2025-06-07 14:55 | XMS_ITS | Clinical Summary ---
Author Organization [facility] Facility Address [address] [place] [id number] Care Team Providers Care Pet Training Instructor Name Role Phone Autumn Pierre Primary Care [...] each day if needed (COPD) 4 Active furosemide (LASIX) 20 MG tablet [...] mouth once daily 60 tablet 4 Active Additional Information Patient taking differently:10 mg Oral Daily,ON HOLD, Reported on 03/23/2025 famotidine (PEPCID) 20 MG tablet Take 20 mg by mouth in the morning and 20 mg in the evening. 4 Active ipratropium-albu terol (DUO-NEB) 0.5-2.5 mg/3 mL nebulizer solution Take 3 mL by nebulization 4 (four) times a day if needed for shortness of breath Active amLODIPine (NORVASC) 5 MG tablet Take 5 mg by mouth 1 (one) time each day 2 Active hydrOXYzine (ATARAX) 10 MG tabletIndication s:Other urticaria Take 1 tablet (10 mg total) by mouth 3 (three) times a day if needed for itching 30 tablet 11 5 026 Active amiodarone (PACERONE) 200 MG tablet .COMPLEX 5 Active doxycycline (VIBRA-TABS) 100 MG tablet Take 100 mg by mouth in the morning and 100 mg in the evening. 5 Active metoprolol tartrate 25 MG tablet Take 12.5 mg by mouth 5 Active Active Problems Problem Noted Date Diagnosed [...] edema 10/24/2018 Severe chronic obstructive pulmonary disease Encounters Date Type Department Care Team Description 04/09/2025 Patient Outreach [facility], [facility] [address] [place] [address] Rajesh, Michelle 03/25/2025 Results [facility], [address] [address] CamasseBernadette 03/25/2025 Documentation Only [facility], [facility] [address] [place] [address] Jeanie Hastings MA 03/25/2025 Documentation Only [facility], [facility] [address] [place] [address] Jeanie Hastings MA 03/25/2025 Documentation Only [facility], [address] [address] Camasse, Bernadette 03/23/2025 11:30 AM CDT Office Visit [facility], [address] [address] Ai Kumar NP Chronic kidney disease stage 3B (HCC) (Primary Dx); Vitamin D deficiency, not otherwise specified 03/18/2025 Documentation Only [facility], [facility] [address] [place] [address] Kay Mcmahan MA 03/18/2025 Documentation Only [facility], [facility] [address] [place] [address] Kay Mcmahan MA 03/18/2025 Results Follow-Up [facility], [facility] [address] [place] [address] Jeanie Hastings MA 03/18/2025 Documentation Only [facility], [facility] [address] [place] [id number] Kay Mcmahan MA 03/18/2025 Telephone [facility] [address] [place] [address] Mila Baez MD 03/16/2025 Telephone [facility] [address] [facility] [address] [place] [address] Mila Baez MD from Last 3 Months Immunizations Immunization Administration Dates Next Due Influenza TIV (IM) 09/25/2018 Pneumococcal Polysaccharide 08/05/2018 Pneumococcal, Unspecified 11/15/2017 Family History Medical History Relation Comments Cancer Father Cancer Sibling Relation Status Comments Father Mother Sibling Social History Tobacco Use Types Packs/Day Years Used Date Smoking Tobacco: Former Cigarettes 0 Q uit: 2008 Smokeless Tobacco: Never Tobacco Cessation:Counseling Given: Not [...] Sign Reading Time Taken Comments Blood Pressure 142/62 03/23/2025 11:19 AM CDT Pulse 64 03/23/2025 11:19 AM CDT Temperature 36.7 C (98 F) 10/11/2020 9:54 AM CDT Respiratory Rate - - Oxygen Saturation 91% 09/16/2024 1:54 PM CDT Inhaled Oxygen Concentration - - Weight 80.3 kg (177 lb) 03/23/2025 11:19 AM CDT Height 177.8 cm (5' 10 ) 03/23/2025 11:19 AM CDT Body Mass Index 25.4 03/23/2025 11:19 AM CDT Plan of Treatment Upcoming Encounters Date Type Department Care Team (Late st Contact Info) Description 07/22/2025 10:30 AM GARAGE MANAGER Office Visit [facility] [address] [place] [address] Ai Kumar, FIDEL [address] [facility] [address] [place] [address] Health Maintenance Due Date Last Done Comments Diabetes: Hemoglobin A1C 01/06/2020 Diabetes: Ophthalmology Exam 01/06/2020 Diabetes: Pedal Pulse Checked 01/06/2020 Diabetes: Sensory Foot Exam 01/06/2020 Diabetes: Visual Foot Exam 01/06/2020 Pneumococcal Vaccine: 50+ Years (3 of 3 - PCV) 01/03/2024 01/02/2023, 08/05/2018, 11/15/2017 Influenza Vaccine (#1) 2025 9, 10/02/2018, 09/25/2018 Pneumococcal Vaccine: Peds ( 0 to 5 Years) and At-Risk Patients (6 to 49 Years) Discontinued 01/02/2023, 08/05/2018, 11/15/2017 Hepatitis B Vaccine Aged Out No longe r eligible based on patient's age to complete this topic Procedures Procedure Name Priority Date/Time Associated Diagnosis Comments RENAL FUNCTION PANEL Routine 03/24/2025 Chronic kidney disease stage 3B (HCC) PTH, INTACT Routine 03/18/2025 1:21 PM CDT Stage 3a chronic kidney disease (HCC) CBC Routine 03/18/2025 1:21 PM CDT Stage 3a chronic kidney disease (HCC) RENAL FUNCTION PANEL Routine 03/18/2025 1:21 PM CDT Stage 3a chronic kidney disease (HCC) from Last 3 Months Results * Renal function panel (03/24/2025) Only the most recent of2 resultswithin the time period is included. Glucose 110 mg/dL PRINT/EXTE RNAL (NON-INTERFACE D LABS) BUN 28 mg/dL PRINT/EXTE RNAL (NON-INTERFACE D LABS) Creatinine 1.8 mg/dL PRINT/EXT ERNAL (NON-INTERFACE D LABS) Sodium 140 mEq/L PRINT/EXTE RNAL (NON-INTERFACE D LABS) Potassium 5.3 mEq/L PRINT/EXTE RNAL (NON-INTERFACE D LABS) Chloride 108 PRINT/EXTE RNAL (NON-INTERFACE D LABS) Carbon Dioxide 24 mmol/L PRINT /EXTERNAL (NON-INTERFACE D LABS) Calcium 8.7 mg/dL PRINT/EXTE RNAL (NON-INTERFACE D LABS) eGFR 37 PRINT/EXTE RNAL (NON-INTERFACE D LABS) Blood Venous blood / Unknown 03/24/2025 Narrative PRINT/EXTERNAL (NON-INTERFACED LABS) - 03/25/2025 2:58 PM CDT [facility] [address] [place] [address] Dr. Inga Casillas, Automobile Glass Technician Ai Kumar NP LAB BLOOD ORDERABLES Valerie l Result PRINT/EXTERNAL (NON-INTERFACED LABS) * CBC (03/18/2025 1:21 PM CDT) WBC 22.60 K/uL PRINT/EXTE RNAL (NON-INTERFACE D LABS) Red Blood Cell Count 3.70 PRINT/EXTERNAL (NON-INTERFACE D LABS) Hemoglobin 10.90 g/dL PRINT/EXT ERNAL (NON-INTERFACE D LABS) Hematocrit 34.7 % PRINT/EXT ERNAL (NON-INTERFACE D LABS) MCV 93.8 PRINT/EXTE RNAL (NON-INTERFACE D LABS) MCH 29.5 PRINT/EXTE RNAL (NON-INTERFACE D LABS) MCHC 31.4 PRINT/EXTE RNAL (NON-INTERFACE D LABS) RDW 15.7 PRINT/EXTE RNAL (NON-INTERFACE D LABS) Platelet Count 232.0 PRINT /EXTERNAL (NON-INTERFACE D LABS) MPV 10.0 PRINT/EXTE RNAL (NON-INTERFACE D LABS) Absolute Neutrophils 13.44 PRINT/EXTERNAL (NON-INTERFACE D LABS) Absolute Lymphocytes 6.6 PRINT/EXTERNAL (NON-INTERFACE D LABS) Absolute Monocytes 1.0 PRINT/EXTERNAL (NON-INTERFACE D LABS) Absolute Eosinophils 0.9 PRINT/EXTERNAL (NON-INTERFACE D LABS) Absolute Basophils 0.0 PRINT/EXTERNAL (NON-INTERFACE D LABS) Neutrophils 59.4 K/uL PRINT/EX TERNAL (NON-INTERFACE D LABS) Lymphocytes 29.3 PRINT/EX TERNAL (NON-INTERFACE D LABS) Monocytes 4.4 PRINT/EXTE RNAL (NON-INTERFACE D LABS) Eosinophils 3.8 PRINT/EX TERNAL (NON-INTERFACE D LABS) Basophils 0.2 PRINT/EXTE RNAL (NON-INTERFACE D LABS) Blood 03/18/2025 1:21 PM CDT Narrative PRINT/EXTERNAL (NON-INTERFACED LABS) - 03/18/2025 3:42 PM CDT [facility] [address] [place] [address] [address] Inga Casillas, Automobile Glass Technician Ai Kumar MICA LAMINATING MACHINE FEEDER LAB BLOOD ORDERABLES Valerie l Result Performing Organization Address [facility] de Phone Number PRINT/EXTERNAL (NON-INTERFACED LABS) * PTH, intact (03/18/2025 1:21 PM CDT) Parathyroid Hormone, Intact 160.3 pg/mL PRINT/HEATING FIXTURE TENDER AL (NON-INTERFACE D LABS) Blood 03/18/2025 1:21 PM CDT Narrative PRINT/EXTERNAL (NON-INTERFACED LABS) - 03/18/2025 3:42 PM CDT [facility] [address] [place] [address] Inga Casillas, Automobile Glass Technician Ai Kumar MICA LAMINATING MACHINE FEEDER LAB BLOOD ORDERABLES Valerie l Result Performing Organization Address [facility] Co de Phone Number PRINT/EXTERNAL (NON-INTERFACED LABS) from Last 3 Months Insurance Medicare [facility] Care Teams Pet Training Instructor Relationship Specialty Start Date End Date Autumn Pierre DO [address] [facility] [address] [place] [address] PCP - General Family Medicine 09/16/24
--- NOTE | 2025-06-07 15:01 | ECG_ITS ---
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 Measurements Intervals Hooper Rate: 129 P: 0 IA: 0 QRS: -38 QRSD: 84 T: 70 QT: 338 QTc: 495 Interpretive Statements ATRIAL FLUTTER/TACHYCARDIA WITH RAPID VENTRICULAR RESPONSE LEFT AXIS DEVIATION [QRS AXIS < -30] POSSIBLE RIGHT VENTRICULAR CONDUCTION DELAY [RSR (QR) IN V1/V2] ST DEVIATION AND MODERATE T-WAVE ABNORMALITY, CONSIDER INFERIOR ISCHEMIA [-0.1+ mV T-WAVE IN II/aVF] Compared to ECG 03/09/2025 08:32:31 Left-axis deviation now present Possible ischemia now present Sinus rhythm no longer present T-wave abnormality still present Electronically Signed On 06-09-2025 20:12:53 COMBATANT SWIMMER by Rudi Briscoe M.D. [email or web address]
--- NOTE | 2025-06-07 15:01 | XRR_ITS ---
PROCEDURE INFORMATION: Exam: XR Chest Exam date and time: 06/07/2025 3:05 PM Age: 85 years old Clinical indication: Dyspnea; Additional Info: SOB TECHNIQUE: Imaging protocol: Radiologic exam of the chest. Views: 1 view. COMPARISON: 1. CR XR chest 1V portable [id number] 03/09/2025 1:11 AM 2. CR XR chest 2V* [id number] 09/08/2024 1:56 PM FINDINGS: Limitations: Lordotic projection noted. Lungs: Pulmonary vascularity appears mildly increased. Flattened diaphragms and pulmonary hyperinflation suggests likelihood of COPD. Fibrotic changes are seen in the lower 3rd of the lung hopson. No focal consolidation is identified. Appearance is not significantly changed from March 2025. Pleural spaces: No pleural effusion. No pneumothorax. Heart/Mediastinum: Mild cardiomegaly. Bones/joints: ACDF hardware is present in the lower cervical spine. Degenerative changes are seen in the lower thoracic spine. No fractures are appreciated. XR/XR chest 1V portable [id number] IMPRESSION: 1. Some pulmonary vascular congestion/mild CHF. 2. Bibasilar interstitial lung disease, unchanged.
[2025-06-07] MEDS: dilTIAZem 5 mg/mL SDV 5 mL 10 MG IVP (15:16)
--- NOTE | 2025-06-07 15:22 | ED_ITS ---
Documented by User: JOAN Snider 06/07/25 18:20 HPI - SOB/Dyspnea 2 General: Chief Complaint: Shortness of Breath/Dyspnea Stated Complaint: sob Time Seen by Provider: 06/07/25 14:54 Source: patient, EMS and old records reviewed Mode of arrival: EMS Limitations: no limitations History of Present Illness: HPI Narrative: Patient is an 85-year-old male with past medical history of type 2 diabetes, COPD, atrial fibrillation, and chronic kidney disease who presents to the emergency department by ambulance for shortness of breath for the past 2 weeks. Symptoms have specifically worsening since last night. Chronically is on 2 L of oxygen at baseline, EMS states they put him on 3 L to maintain above 90%. He is currently back to his baseline of 2 L, 91% SpO2. States that he has had progressively worsening productive cough, no chest pain. He did receive a breathing treatment prehospital which reportedly helped his symptoms. He is on a blood thinner. He also notes associated nausea. Current rhythm consistent with A-fib RVR, afebrile and appearing in mild respiratory distress with labored breathing. He does report to me that he has a history of pneumonia and that his condition currently feels similar. MD elicited complaint: shortness of breath and cough Pertinent past history: COPD, diabetes and pneumonia Onset (ago): week(s) Timing: progressively worsening Severity: similar to previous episodes Known history of: COPD, diabetes and recurrent pneumonia Associated symptoms: Reports nausea; Deny abdominal pain, chest pain, fever(s), lightheadedness, palpitations or vomiting Treatment prior to arrival: oxygen and bronchodilator Related Data Home Medications ?Medication ?Instructions ?Recorded ?Confirmed docusate sodium 100 mg capsule 100 mg PO BID PRN Const ipation 03/09/25 06/07/25 (Colace) linagliptin 5 mg tablet (Tradjenta) 5 mg PO DAILY 08/0206/07/25 vit C 250 mg-vit E 90 mg-zinc 40 1 tab PO BID 03/09/25 06/07/25 mg-copper 1 [id number] capsule (PreserVision AREDS-2) warfarin 3 mg tablet 3 mg PO DAILY 03/09/2506/07 albuterol sulfate 90 mcg/actuation 2 puff inhalation Q 4H PRN 06/07/25 06/07/25 aerosol inhaler Shortness Of Breath atorvastatin 20 mg tablet 20 mg PO BEDTIME 06/07/25 diltiazem HCl 180 mg capsule,24 180 mg PO DAILY 06/07/25 hr,extended release famotidine 20 mg tablet 20 mg PO BID PRN GERD 06/07/25 fluticasone propionate 50 2 spray intranasal DAILY 06/07/25 mcg/actuation nasal spray,suspension hydrocodone 5 mg-acetaminophen 325 1 tab PO .Q4-6H PRN dental Pain 06/07/25 06/07/25 mg tablet revefenacin 175 mcg/3 mL solution 175 mcg inhalation D AILY PRN COPD 06/07/25 06/07/25 for nebulization (Rosie) J44.9 Previous Rx's ?Medication ?Instructions ?Recorded citalopram 40 mg tablet 40 mg PO DAILY #90 tabs 01/06 12/31 tamsulosin 0.4 mg capsule (Flomax) 0.4 mg PO BEDTIME # 90 caps 01/21/25 warfarin 4 mg tablet 4 mg PO DAILY #90 tabs 03/10 allopurinol 300 mg tablet 150 mg (1/2 x 300 mg) PO QAM #90 03/23/25 tabs mucus clearing device #1 ea 03/26/25 budesonide 0.5 mg/2 mL suspension 0.5 mg (2 mL) inhala tion BID PRN 04/13/25 for nebulization COPD J44.9 #60 mL formoterol fumarate 20 mcg/2 mL 2 ml inhalation BID #1 20 mL 04/13/25 solution for nebulization (Perforomist) metoprolol tartrate 25 mg tablet 12.5 mg (1/2 x 25 mg) PO DAILY #30 04/13/25 tabs bumetanide 0.5 mg tablet 0.5 mg PO .Every other day # 60 tabs 04/28/25 amiodarone 200 mg tablet (Pacerone) 200 mg PO DAILY #9 0 tabs 05/13/25 Allergies Allergy/AdvReac Type Severity Reaction Status Date / Time No Known Allergies Allergy Verified 06/07/25 15:02 Review of Systems 2 General: Reports: 10 or more systems reviewed and unremarkable except in HPI and below Const: Denies: fever(s), chills or fatigue Eyes: Denies: change in vision ENMT: Denies: throat pain, ear or mastoid pain or nasal discharge Card: Denies: chest pain, palpitations, swelling of feet/ankles or lightheadedness Resp: Reports: dyspnea, productive cough and wheezing; Denies: pain on inspiration GI: Reports: nausea; Denies: abdominal pain, vomiting, diarrhea or constipation : Denies: flank pain, difficulty urinating, dysuria or urinary frequency Musc: Denies: neck pain, back pain or joint pain Skin/Breast: Denies: rash Neuro: Denies: headache(s), numbness in extremities or weakness in extremities PFSH ED 2 PFSH: Medical History Bronchiectasis CKD stage 3b, GFR 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 CLL (chronic lymphocytic leukemia) Gastroesophageal reflux disease, unspecified whether esophagitis present Type 2 diabetes mellitus without complications Delirium Frontal lobe dementia Word finding difficulty Displaced fracture of right femoral neck Closed fracture of right hip Atrial fibrillation with rapid ventricular response Lymphocytosis Bradycardia Long-term (current) use of anticoagulants, INR goal 2.0-3.0 Dyslipidemia Edema leg COPD (chronic obstructive pulmonary disease) Atopic dermatitis, unspecified Gout, unspecified Orthopnea Essential (primary) hypertension Surgical History History of right hip replacement History of left hip replacement Dr. Bennett - 11/2021 at [place], [place] History of prostate surgery History of total knee replacement bilateral History of cholecystectomy Family History Other Cancer Hypertension Lung disease Denies family history of Diabetes CAD (coronary artery disease) Clotting disorder Dementia Hyperlipidemia Psychiatric illness Chronic kidney disease (CKD) Suicide Anesthesia complication Bleeding disorder Stroke Social History Smoking and tobacco/nicotine status: former use of tobacco/nicotine Quit status (tobacco/nicotine): has quit using Year quit tobacco: 2009 - 1PPD x 50 Years Second hand smoke exposure: No Alcohol intake: current Substance/Drug Use: never Lives independently: Yes Household members: spouse Marital status: Current occupational status: retired Do you think of yourself as: Straight/Heterosexual Current gender identity: Male Physical Exam 2 Const: COMMON NORMALS: patient oriented x3 and no limitations GENERAL APPEARANCE: cooperative ORIENTATION/CONSCIOUSNESS: Yes awake, Yes oriented to person, Yes oriented to place and Yes oriented to time OTHER: Appearing in mild respiratory distress Neck/C-Spine: COMMON NORMALS: full ROM and supple Resp: EFFORT & INSPECTION: Yes tachypneic, Yes respiratory distress, Yes labored, Yes Actively coughing, Yes uses accessory muscles and Yes audible wheezes AUSCULTATION: wheezes lower bilaterally Cardio: COMMON NORMALS: No clicks present (Cardio), No murmurs present (Cardio) and No rub (Cardio) RATE: tachycardic RHYTHM: abnormal rhythm irregularly irregular GI: COMMON NORMALS: Normal to inspection, nondistended, normoactive bowel sounds present, Soft to palpation and non-tender AUSCULTATION: Yes normoactive bowel sounds PALPATION: Yes Soft to palpation RECTAL EXAM: Yes deferred Extremity: COMMON NORMALS: normal to inspection, full ROM and capillary refill normal NARRATIVE EXTREMITY EXAM: Trace pedal edema bilateral lower extremities Neuro: COMMON NORMALS: patient oriented x3, moves all extremities, no focal motor deficits and no sensory deficits noted SENSORIUM/ORIENTATION: Yes oriented to person, Yes oriented to place and Yes oriented to time Skin: COMMON NORMALS: no rashes or lesions noted GENERAL SKIN EXAM: no rashes or lesions noted Course 2 Vital Signs: Vital signs: Vital Signs Temperature 98.6 F 06/07/25 14:52 Pulse Rate 76 06/07/25 20:28 Respiratory Rate 22 H 06/07/25 18:30 Blood Pressure 172/81 06/07/25 20:28 Pulse Oximetry 96 06/07/25 20:28 Oxygen Delivery Me thod Nasal Cannula 06/07/25 15:56 Oxygen Flow Rate 2 06/07/25 15:56 MDM - SOB/Dyspnea Medical Decision Making Patient presented by ambulance for shortness of breath the past couple of weeks. Positive history of COPD, atrial fibrillation, CKD, and heart failure. Tells me he has had worsening productive cough, EMS had to place him on 3 L of oxygen prehospital though condition improved after 1 DuoNeb therapy. He is chronically on 2 L of oxygen, has maintained on 2 L here in the emergency department, was given another DuoNeb here. There is some diminished lung sounds at the bases, he arrives in A-fib RVR and is given 10 mg of Cardizem. Heart rate has normalized after this. Tachypneic with some use of accessory muscles as well at time of examination. Chest x-ray showing pulmonary vascular congestion and mild CHF. There is significant leukocytosis with left shift with his CBC, BNP is 2066, first troponin is 62 with delta of -12.23. CTA chest abdomen and pelvis ordered due to his reports of nausea as well, appearing that there is a new left lower lobe infiltrate. Also pancreatic mass that has grown in size. Due to his pneumonia, significant comorbid conditions, requiring periodic bronchodilator, and concerning labs he will be admitted to the hospital by Dr. Rodriguez. He is started on Zosyn and following obtaining blood cultures, he has a history of bronchiectasis so want to cover for Pseudomonas. Dr. Gooden is informed of this patient's case and will place admit orders at this time. Patient and family in the room are informed of plan for admission and agree at this time. Lab Data 06/07/25 15:19 06/07/25 15:19 Labs/Radiology: Radiology Impressions Chest X-Ray 06/07/25 15:01 IMPRESSION: 1. Some pulmonary vascular congestion/mild CHF. 2. Bibasilar interstitial lung disease, unchanged. Chest/Abdomen/Pelvis CT 06/07/25 16:23 IMPRESSION: 1. Stable mediastinal lymph nodes. 2. New left lower lobe infiltrates. Acute Finding could represent pneumonic process. Imaging follow-up until resolution is advised. 3. Coronary calcifications. IMPRESSION: 1. Previously seen pancreatic body hypodense lesion has shown interval increase in size now measuring 2.9 x 2.7 cm. Neoplastic process can not be excluded. MRI of the pancreas without and with contrast for further evaluation is advised. 2. Diffuse colonic stool material. Clinical correlation to exclude constipation is advised. 3. Sigmoid and descending colon diverticulosis. 4. Additional findings as described. COMMENTS: Consistent with the [employer]'s Incidental Findings Committee white paper (J Am Ethan Radiol 2018): Any incidental renal lesion less than 1 cm or classified as too small to characterize, or any incidental cystic renal lesion characterized as simple-appearing, is likely benign. No follow-up imaging is recommended for these lesions per consensus recommendations based on imaging criteria. Laboratory Results WBC 23.80 10^3/uL (3.29-11.43) H 06/07/25 15:19 RBC 4.57 10^6/uL (3.85-5.65) 06/07/25 15:19 Hgb 13.70 g/dL (11.27-16.99) 06/07/25 15:19 Hct 42.3 % (37-53) 06/07/25 15:19 MCV 92.6 fl (82-101) 06/07/25 15:19 MCH 30.0 pg (27-33) 06/07/25 15:19 MCHC 32.4 g/dL (30-55) 06/07/25 15:19 RDW 15.3 % (12.1-15.1) H 06/07/25 15:19 Plt Count 218 10^3/cmm (157-399) 06/07/25 15:19 MPV 9.7 fL (7.4-10.4) 06/07/25 15:19 Neut % (Auto) 73.7 % 06/07/25 15:19 Lymph % (Auto) 21.1 % 06/07/25 15:19 [place] % (Auto) 4.5 % 06/07/25 15:19 Eos % (Auto) 0.1 % 06/07/25 15:19 Baso % (Auto) 0.2 % 06/07/25 15:19 Neut # (Auto) 17.56 10^3/uL (1.8-7.7) H 06/07/25 15:19 Lymph # (Auto) 5.0 10^3/uL (0.8-4.8) H 06/07/25 15:19 [place] # (Auto) 1.1 10^3/uL (0.2-0.9) H 06/07/25 15:19 Eos # (Auto) 0.0 10^3/uL (0.0-0.8) 06/07/25 15:19 Baso # (Auto) 0.0 10^3/uL (0.0-0.1) 06/07/25 15:19 Nucleated RBC % (auto) 0 % 06/07/25 15:19 Nucleated RBCs # 0.0 /100WBC 06/07/25 15:19 PT 25.90 SECONDS (12.1-14.9) H 06/07/25 15:19 INR 2.22 (0.8-1.2) H 06/07/25 15:19 APTT 41.0 SECONDS (23.9-36.7) H 06/07/25 15:19 Specimen Type Arterial 06/07/25 16:07 Sample Site Radial, left 06/07/25 16:07 ABG pH 7.45 (7.35-7.45) 06/07/25 16:07 ABG pCO2 35.9 mmHg (35-45) 06/07/25 16:07 ABG pO2 58.0 mmHg (80.0-100.0) L 06/07/25 16:07 ABG PO2/FiO2 Ratio 207 06/07/25 16:07 ABG HCO3 25.0 mmol/L (22-26) 06/07/25 16:07 ABG O2 Saturation 93.2 06/07/25 16:07 ABG Base Excess 1.3 mmol/L (-2.0-2.0) 06/07/25 16:07 Hema Test Pos 06/07/25 16:07 A-a O2 Gradient 12.9 mmHg (5-10) H 06/07/25 16:07 Hematocrit 43.5 % (42-52) 06/07/25 16:07 Hgb O2 Saturation 91.0 % (95-100) L 06/07/25 16:07 Carboxyhemoglobin 1.2 %THgb (0.4-20.1) 06/07/25 16:07 Methemoglobin 1.1 % (0.4-1.5) 06/07/25 16:07 Total Hemoglobin 14.2 g/dL (14-18) 06/07/25 16:07 Sodium 140.0 mmol/L (131-143) 06/07/25 16:07 Potassium 4.4 mmol/L (3.5-5.0) 06/07/25 16:07 Glucose 160.0 mg/dL (70-115) H 06/07/25 16:07 Ionized Calcium 1.2 mmol/L (1.1-1.4) 06/07/25 16:07 O2 Delivery Device Nc 06/07/25 16:07 O2 Liters/Min 2.0 % 06/07/25 16:07 FiO2 28.0 % 06/07/25 16:07 Chemical Operator ID Lc 06/07/25 16:07 Sodium 137 mmol/L (136-145) 06/07/25 15:19 Potassium 4.6 mmol/L (3.5-5.1) 06/07/25 15:19 Chloride 103 mmol/L (98-107) 06/07/25 15:19 Carbon Dioxide 21 mmol/L (22-29) L 06/07/25 15:19 Anion Gap 17.6 (5-19) 06/07/25 15:19 BUN 26 mg/dL (8-23) H 06/07/25 15:19 Creatinine 1.6 mg/dL (0.7-1.2) H 06/07/25 15:19 GFR Calculation Not Reportable 06/07/25 15:19 Glucose 153 mg/dL (65-115) H 06/07/25 15:19 Calculated Osmolality 292 mOsm/kg (285-295) 06/07/25 15:19 Lactic Acid 1.5 mmol/L (0.5-2.2) 06/07/25 15:19 Calcium 9.0 mg/dL (8.5-10.5) 06/07/25 15:19 Total Bilirubin 1.0 mg/dL (0.15-1.2) 06/07/25 15:19 AST 17 U/L (0-40) 06/07/25 15:19 ALT 18 U/L (0-41) 06/07/25 15:19 Alkaline Phosphatase 127 U/L (40-130) 06/07/25 15:19 Troponin T Baseline 62 ng/L (0-15) H 06/07/25 15:19 Troponin T 120 Minute 49.77 ng/L (0-15) H 06/07/25 17:33 Delta Troponin T -12.23 ABS# (0-10) L 06/07/25 17:33 NT-Pro-B Natriuret Pep 2066 pg/mL (0-450) H 06/07/25 15:19 Total Protein 6.2 g/dL (6.6-8.7) L 06/07/25 15:19 Albumin 4.1 g/dL (3.5-5.2) 06/07/25 15: Globulin 2.1 g/dL (1.3-4.6) 06/07/25 15:19 Procalcitonin 0.48 ng/mL (0-0.5) 06/07/25 15:19 Procalcitonin 0.50 ng/mL (0-0.5) 06/07/25 15:19 Urine Color Yellow (Yellow) 06/07/25 16:07 Urine Appearance Clear (CLEAR) 06/07/25 16:07 Urine pH 7.0 (5-7) 06/07/25 16:07 Ur Specific [place] 1.017 (1.005-1.030) 06/07/25 16:07 Urine Protein 3+ (Negative) A 06/07/25 16:07 Urine Glucose (UA) Negative (Normal) 06/07/25 16:07 Urine Ketones Trace (Negative) 06/07/25 16:07 Urine Blood 2+ (Negative) A 06/07/25 16:07 Urine Nitrate Negative (Negative) 06/07/25 16:07 Urine Bilirubin Negative (Negative) 06/07/25 16:07 Urine Urobilinogen 1.0 mg/dL (Negative) 06/07/25 16:07 Ur Leukocyte Esterase Negative (Negative) 06/07/25 16:07 Urine RBC 21-50 /hpf (0-2) H 06/07/25 16:07 Urine WBC 0-5 /hpf (0-5) 06/07/25 16:07 Ur Squamous Epith Cells 0-5 /hpf (0-5) 06/07/25 16:07 Amorphous Sediment Not Reportable 06/07/25 16:07 Urine Bacteria None seen /hpf (NONE) 06/07/25 16:07 Hyaline Casts 0.81 /lpf 06/07/25 16:07 Influenza A (PCR) Negative (Negative) 06/07/25 16:10 Influenza Type B (PCR) Negative (Negative) 06/07/25 16:10 RSV (PCR) Negative (Negative) 06/07/25 16:10 SARS-CoV-2 (PCR) Negative (Negative) 06/07/25 16:10 All radiology interpretation(s) finalized by discharge Discharge Plan Discharge Patient Disposition: Admitted As Inpatient Clinical Impression: COPD exacerbation Left lower lobe pneumonia Qualifiers: Pneumonia type: due to unspecified organism Qualified Code(s): J18.9 - Pneumonia, unspecified organism Condition: Stable Coding Level of Care Code ED Scouring Machine Tender for Chg Fwd Documented by User: Rafael Gooden, 06/07/25 21:08 HPI - SOB/Dyspnea 2 General: Chief Complaint: Shortness of Breath/Dyspnea Stated Complaint: sob Time Seen by Provider: 06/07/25 14:54 Related Data Home Medications ?Medication ?Instructions ?Recorded ?Confirmed docusate sodium 100 mg capsule 100 mg PO BID PRN Const ipation 03/09/25 06/07/25 (Colace) linagliptin 5 mg tablet (Tradjenta) 5 mg PO DAILY 08/0206/07/25 vit C 250 mg-vit E 90 mg-zinc 40 1 tab PO BID 03/09/25 06/07/25 mg-copper 1 [id number] capsule (PreserVision AREDS-2) warfarin 3 mg tablet 3 mg PO DAILY 03/09/2506/07 albuterol sulfate 90 mcg/actuation 2 puff inhalation Q 4H PRN 06/07/25 06/07/25 aerosol inhaler Shortness Of Breath atorvastatin 20 mg tablet 20 mg PO BEDTIME 06/07/25 diltiazem HCl 180 mg capsule,24 180 mg PO DAILY 06/07/25 hr,extended release famotidine 20 mg tablet 20 mg PO BID PRN GERD 06/07/25 fluticasone propionate 50 2 spray intranasal DAILY 06/07/25 mcg/actuation nasal spray,suspension hydrocodone 5 mg-acetaminophen 325 1 tab PO .Q4-6H PRN dental Pain 06/07/25 06/07/25 mg tablet revefenacin 175 mcg/3 mL solution 175 mcg inhalation D AILY PRN COPD 06/07/25 06/07/25 for nebulization (Davidi) J44.9 Previous Rx's ?Medication ?Instructions ?Recorded citalopram 40 mg tablet 40 mg PO DAILY #90 tabs 01/06 12/31 tamsulosin 0.4 mg capsule (Flomax) 0.4 mg PO BEDTIME # 90 caps 01/21/25 warfarin 4 mg tablet 4 mg PO DAILY #90 tabs 03/10 allopurinol 300 mg tablet 150 mg (1/2 x 300 mg) PO QAM #90 03/23/25 tabs mucus clearing device #1 ea 03/26/25 budesonide 0.5 mg/2 mL suspension 0.5 mg (2 mL) inhala tion BID PRN 04/13/25 for nebulization COPD J44.9 #60 mL formoterol fumarate 20 mcg/2 mL 2 ml inhalation BID #1 20 mL 04/13/25 solution for nebulization (Perforomist) metoprolol tartrate 25 mg tablet 12.5 mg (1/2 x 25 mg) PO DAILY #30 04/13/25 tabs bumetanide 0.5 mg tablet 0.5 mg PO .Every other day # 60 tabs 04/28/25 amiodarone 200 mg tablet (Pacerone) 200 mg PO DAILY #9 0 tabs 05/13/25 Allergies Allergy/AdvReac Type Severity Reaction Status Date / Time No Known Allergies Allergy Verified 06/07/25 15:02 [facility] ED 2 PFSH: Medical History Bronchiectasis CKD stage 3b, GFR 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 CLL (chronic lymphocytic leukemia) Gastroesophageal reflux disease, unspecified whether esophagitis present Type 2 diabetes mellitus without complications Delirium Frontal lobe dementia Word finding difficulty Displaced fracture of right femoral neck Closed fracture of right hip Atrial fibrillation with rapid ventricular response Lymphocytosis Bradycardia Long-term (current) use of anticoagulants, INR goal 2.0-3.0 Dyslipidemia Edema leg COPD (chronic obstructive pulmonary disease) Atopic dermatitis, unspecified Gout, unspecified Orthopnea Essential (primary) hypertension Surgical History History of right hip replacement History of left hip replacement Dr. Bennett - 11/2021 at [place], [place] History of prostate surgery History of total knee replacement bilateral History of cholecystectomy Family History Other Cancer Hypertension Lung disease Denies family history of Diabetes CAD (coronary artery disease) Clotting disorder Dementia Hyperlipidemia Psychiatric illness Chronic kidney disease (CKD) Suicide Anesthesia complication Bleeding disorder Stroke Social History Smoking and tobacco/nicotine status: former use of tobacco/nicotine Quit status (tobacco/nicotine): has quit using Year quit tobacco: 2010 - 1PPD x 50 Years Second hand smoke exposure: No Alcohol intake: current Substance/Drug Use: never Lives independently: Yes Household members: spouse Marital status: Current occupational status: retired Do you think of yourself as: Straight/Heterosexual Current gender identity: Male Course 2 Vital Signs: Vital signs: Vital Signs Temperature 98.6 F 06/07/25 14:52 Pulse Rate 76 06/07/25 20:28 Respiratory Rate 22 H 06/07/25 18:30 Blood Pressure 172/81 06/07/25 20:28 Pulse Oximetry 96 06/07/25 20:28 Oxygen Delivery Me thod Nasal Cannula 06/07/25 15:56 Oxygen Flow Rate 2 06/07/25 15:56 MDM - SOB/Dyspnea Medical Decision Making Patient presented by ambulance for shortness of breath the past couple of weeks. Positive history of COPD, atrial fibrillation, CKD, and heart failure. Tells me he has had worsening productive cough, EMS had to place him on 3 L of oxygen prehospital though condition improved after 1 DuoNeb therapy. He is chronically on 2 L of oxygen, has maintained on 2 L here in the emergency department, was given another DuoNeb here. There is some diminished lung sounds at the bases, he arrives in A-fib RVR and is given 10 mg of Cardizem. Heart rate has normalized after this. Tachypneic with some use of accessory muscles as well at time of examination. Chest x-ray showing pulmonary vascular congestion and mild CHF. There is significant leukocytosis with left shift with his CBC, BNP is 2066, first troponin is 62 with delta of -12.23. CTA chest abdomen and pelvis ordered due to his reports of nausea as well, appearing that there is a new left lower lobe infiltrate. Also pancreatic mass that has grown in size. Due to his pneumonia, significant comorbid conditions, requiring periodic bronchodilator, and concerning labs he will be admitted to the hospital by Dr. Rodriguez. He is started on Zosyn and following obtaining blood cultures, he has a history of bronchiectasis so want to cover for Pseudomonas. Dr. Gooden is informed of this patient's case and will place admit orders at this time. Patient and family in the room are informed of plan for admission and agree at this time. Patient originally seen by Mr. Mandy PA-C. I agree with his history, evaluation, and management. Admission orders have been written Lab Data 06/07/25 15:19 06/07/25 15:19 Labs/Radiology: Radiology Impressions Chest X-Ray 06/07/25 15:01 IMPRESSION: 1. Some pulmonary vascular congestion/mild CHF. 2. Bibasilar interstitial lung disease, unchanged. Chest/Abdomen/Pelvis CT 06/07/25 16:23 IMPRESSION: 1. Stable mediastinal lymph nodes. 2. New left lower lobe infiltrates. Acute Finding could represent pneumonic process. Imaging follow-up until resolution is advised. 3. Coronary calcifications. IMPRESSION: 1. Previously seen pancreatic body hypodense lesion has shown interval increase in size now measuring 2.9 x 2.7 cm. Neoplastic process can not be excluded. MRI of the pancreas without and with contrast for further evaluation is advised. 2. Diffuse colonic stool material. Clinical correlation to exclude constipation is advised. 3. Sigmoid and descending colon diverticulosis. 4. Additional findings as described. COMMENTS: Consistent with the [place] [employer] [employer]'s Incidental Findings Committee white paper (J Am Ethan Radiol 2018): Any incidental renal lesion less than 1 cm or classified as too small to characterize, or any incidental cystic renal lesion characterized as simple-appearing, is likely benign. No follow-up imaging is recommended for these lesions per consensus recommendations based on imaging criteria. Laboratory Results WBC 23.80 10^3/uL (3.29-11.43) H 06/07/25 15:19 RBC 4.57 10^6/uL (3.85-5.65) 06/07/25 15:19 Hgb 13.70 g/dL (11.27-16.99) 06/07/25 15:19 Hct 42.3 % (37-53) 06/07/25 15:19 MCV 92.6 fl (82-101) 06/07/25 15:19 MCH 30.0 pg (27-33) 06/07/25 15:19 MCHC 32.4 g/dL (30-55) 06/07/25 15:19 RDW 15.3 % (12.1-15.1) H 06/07/25 15:19 Plt Count 218 10^3/cmm (157-399) 06/07/25 15:19 MPV 9.7 fL (7.4-10.4) 06/07/25 15:19 Neut % (Auto) 73.7 % 06/07/25 15:19 Lymph % (Auto) 21.1 % 06/07/25 15:19 [place] % (Auto) 4.5 % 06/07/25 15:19 Eos % (Auto) 0.1 % 06/07/25 15:19 Baso % (Auto) 0.2 % 06/07/25 15:19 Neut # (Auto) 17.56 10^3/uL (1.8-7.7) H 06/07/25 15:19 Lymph # (Auto) 5.0 10^3/uL (0.8-4.8) H 06/07/25 15:19 [place] # (Auto) 1.1 10^3/uL (0.2-0.9) H 06/07/25 15:19 Eos # (Auto) 0.0 10^3/uL (0.0-0.8) 06/07/25 15:19 Baso # (Auto) 0.0 10^3/uL (0.0-0.1) 06/07/25 15:19 Nucleated RBC % (auto) 0 % 06/07/25 15:19 Nucleated RBCs # 0.0 /100WBC 06/07/25 15:19 PT 25.90 SECONDS (12.1-14.9) H 06/07/25 15:19 INR 2.22 (0.8-1.2) H 06/07/25 15:19 APTT 41.0 SECONDS (23.9-36.7) H 06/07/25 15:19 Specimen Type Arterial 06/07/25 16:07 Sample Site Radial, left 06/07/25 16:07 ABG pH 7.45 (7.35-7.45) 06/07/25 16:07 ABG pCO2 35.9 mmHg (35-45) 06/07/25 16:07 ABG pO2 58.0 mmHg (80.0-100.0) L 06/07/25 16:07 ABG PO2/FiO2 Ratio 207 06/07/25 16:07 ABG HCO3 25.0 mmol/L (22-26) 06/07/25 16:07 ABG O2 Saturation 93.2 06/07/25 16:07 ABG Base Excess 1.3 mmol/L (-2.0-2.0) 06/07/25 16:07 Hema Test Pos 06/07/25 16:07 A-a O2 Gradient 12.9 mmHg (5-10) H 06/07/25 16:07 Hematocrit 43.5 % (42-52) 06/07/25 16:07 Hgb O2 Saturation 91.0 % (95-100) L 06/07/25 16:07 Carboxyhemoglobin 1.2 %THgb (0.4-20.1) 06/07/25 16:07 Methemoglobin 1.1 % (0.4-1.5) 06/07/25 16:07 Total Hemoglobin 14.2 g/dL (14-18) 06/07/25 16:07 Sodium 140.0 mmol/L (131-143) 06/07/25 16:07 Potassium 4.4 mmol/L (3.5-5.0) 06/07/25 16:07 Glucose 160.0 mg/dL (70-115) H 06/07/25 16:07 Ionized Calcium 1.2 mmol/L (1.1-1.4) 06/07/25 16:07 O2 Delivery Device Nc 06/07/25 16:07 O2 Liters/Min 2.0 % 06/07/25 16:07 FiO2 28.0 % 06/07/25 16:07 Chemical Operator ID Lc 06/07/25 16:07 Sodium 137 mmol/L (136-145) 06/07/25 15:19 Potassium 4.6 mmol/L (3.5-5.1) 06/07/25 15:19 Chloride 103 mmol/L (98-107) 06/07/25 15:19 Carbon Dioxide 21 mmol/L (22-29) L 06/07/25 15:19 Anion Gap 17.6 (5-19) 06/07/25 15:19 BUN 26 mg/dL (8-23) H 06/07/25 15:19 Creatinine 1.6 mg/dL (0.7-1.2) H 06/07/25 15:19 GFR Calculation Not Reportable 06/07/25 15:19 Glucose 153 mg/dL (65-115) H 06/07/25 15:19 Calculated Osmolality 292 mOsm/kg (285-295) 06/07/25 15:19 Lactic Acid 1.5 mmol/L (0.5-2.2) 06/07/25 15:19 Calcium 9.0 mg/dL (8.5-10.5) 06/07/25 15:19 Total Bilirubin 1.0 mg/dL (0.15-1.2) 06/07/25 15:19 AST 17 U/L (0-40) 06/07/25 15:19 ALT 18 U/L (0-41) 06/07/25 15:19 Alkaline Phosphatase 127 U/L (40-130) 06/07/25 15:19 Troponin T Baseline 62 ng/L (0-15) H 06/07/25 15:19 Troponin T 120 Minute 49.77 ng/L (0-15) H 06/07/25 17:33 Delta Troponin T -12.23 ABS# (0-10) L 06/07/25 17:33 NT-Pro-B Natriuret Pep 2066 pg/mL (0-450) H 06/07/25 15:19 Total Protein 6.2 g/dL (6.6-8.7) L 06/07/25 15:19 Albumin 4.1 g/dL (3.5-5.2) 06/07/25 15:19 Globulin 2.1 g/dL (1.3-4.6) 06/07/25 15:19 Procalcitonin 0.48 ng/mL (0-0.5) 06/07/25 15:19 Procalcitonin 0.50 ng/mL (0-0.5) 06/07/25 15:19 Urine Color Yellow (Yellow) 06/07/25 16:07 Urine Appearance Clear (CLEAR) 06/07/25 16:07 Urine pH 7.0 (5-7) 06/07/25 16:07 Ur Specific [place] 1.017 (1.005-1.030) 06/07/25 16:07 Urine Protein 3+ (Negative) A 06/07/25 16:07 Urine Glucose (UA) Negative (Normal) 06/07/25 16:07 Urine Ketones Trace (Negative) 06/07/25 16:07 Urine Blood 2+ (Negative) A 06/07/25 16:07 Urine Nitrate Negative (Negative) 06/07/25 16:07 Urine Bilirubin Negative (Negative) 06/07/25 16:07 Urine Urobilinogen 1.0 mg/dL (Negative) 06/07/25 16:07 Ur Leukocyte Esterase Negative (Negative) 06/07/25 16:07 Urine RBC 21-50 /hpf (0-2) H 06/07/25 16:07 Urine WBC 0-5 /hpf (0-5) 06/07/25 16:07 Ur Squamous Epith Cells 0-5 /hpf (0-5) 06/07/25 16:07 Amorphous Sediment Not Reportable 06/07/25 16:07 Urine Bacteria None seen /hpf (NONE) 06/07/25 16:07 Hyaline Casts 0.81 /lpf 06/07/25 16:07 Influenza A (PCR) Negative (Negative) 06/07/25 16:10 Influenza Type B (PCR) Negative (Negative) 06/07/25 16:10 RSV (PCR) Negative (Negative) 06/07/25 16:10 SARS-CoV-2 (PCR) Negative (Negative) 06/07/25 16:10 Discharge Plan Discharge Patient Disposition: Admitted As Inpatient Clinical Impression: COPD exacerbation Left lower lobe pneumonia Qualifiers: Pneumonia type: due to unspecified organism Qualified Code(s): J18.9 - Pneumonia, unspecified organism Condition: Stable Coding Level of Care Code ED 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
[2025-06-07 15:31] LABS: Hematocrit 42.3 % (37-53); Hemoglobin 13.70 g/dL (11.27-16.99); Mean Corpuscular HGB Conc 32.4 g/dL (30-55); Mean Corpuscular Hemoglobin 30.0 pg (27-33); Mean Corpuscular Volume 92.6 fl (82-101); Nucleated Red Blood Cells % 0 %; Platelet Count 218 10^3/cmm (157-399); Red Blood Count 4.57 10^6/uL (3.85-5.65); White Blood Count 23.80 10^3/uL (3.29-11.43)
[2025-06-07 15:49] LABS: Troponin(5th) Baseline 62 ng/L (0-15)
[2025-06-07 15:52] LABS: Lactic Sepsis W/Reflex 1.5 mmol/L (0.5-2.2)
[2025-06-07 16:04] LABS: Procalcitonin 0.48 ng/mL (0-0.5)
[2025-06-07 16:06] LABS: Alanine Aminotransferase 18 U/L (0-41); Albumin Level 4.1 g/dL (3.5-5.2); Alkaline Phosphatase 127 U/L (40-130); Anion Gap 17.6 (5-19); Aspartate Amino Transferase 17 U/L (0-40); Blood Urea Nitrogen 26 mg/dL (8-23); Calcium 9.0 mg/dL (8.5-10.5); Carbon Dioxide 21 mmol/L (22-29); Chloride 103 mmol/L (98-107); Globulin 2.1 g/dL (1.3-4.6); Glucose 153 mg/dL (65-115); Osmolality Calculated 292 mOsm/kg (285-295); Potassium 4.6 mmol/L (3.5-5.1); Sodium 137 mmol/L (136-145); Total Protein 6.2 g/dL (6.6-8.7)
[2025-06-07 16:15] LABS: ABG PCO2 35.9 mmHg (35-45); ABG PH Result 7.45 (7.35-7.45); Arterial Blood Gas Hematocrit 43.5 % (42-52); Blood Gas Allen Test Pos; Blood Gas Operator Identificat LC; Blood Gas Sample Site Radial, left; Blood Gas Sample Type Arterial; Carboxyhemoglobin 1.2 %THgb (0.4-20.1); Glucose Level-ABG 160.0 mg/dL (70-115); HCO3 ABG 25.0 mmol/L (22-26); Ionized Calcium Level - ABG 1.2 mmol/L (1.1-1.4); Methemoglobin 1.1 % (0.4-1.5); Oxygen Saturation ABG 93.2; PO2 ABG 58.0 mmHg (80.0-100.0); Potassium Level - ABG 4.4 mmol/L (3.5-5.0); Sodium Level - ABG 140.0 mmol/L (131-143)
[2025-06-07 16:16] LABS: Alveolar-Arterial Oxygen Gradi 12.9 mmHg (5-10); Blood Gas LPM 2.0 %; PO2 FiO2 Ratio Arterial Blood 207
--- NOTE | 2025-06-07 16:23 | CTR_ITS ---
PROCEDURE INFORMATION: Exam: CT Chest With Contrast; Diagnostic Exam date and time: 06/07/2025 4:48 PM Age: 85 years old Clinical indication: Other: Cough, SOB, nausea TECHNIQUE: Imaging protocol: Diagnostic computed tomography of the chest with contrast. Radiation optimization: All CT scans at this facility use at least one of these dose optimization techniques: automated exposure control; mA and/or kV adjustment per patient size (includes targeted exams where dose is matched to clinical indication); or iterative reconstruction. Contrast material: OMNI 350; Contrast volume: 100 ml; Contrast route: INTRAVENOUS (IV); COMPARISON: [place] chest [place] [facility] [place] [id number] 06/11/2024 2:42 AM RADIATION DOSE METRICS: Total DLP (mGy-cm): 1037.68 FINDINGS: Lungs: New left lower lobe infiltrates. Stable right upper lobe scarring. Chronic branching nodular lesions in the left upper lobe and bilateral lower lobes. Bibasilar bronchiectasis Pleural spaces: Unremarkable. No pneumothorax. No pleural effusion. Heart: Unremarkable. No cardiomegaly. No pericardial effusion. Coronary arteries: Coronary calcifications are seen. Lymph nodes: Stable mildly enlarged precarinal lymph node 1.3 x 1.4 cm. Additional shotty mediastinal lymph nodes are stable. Vasculature: Mild calcified atherosclerotic changes are seen in the thoracic aorta. Bones/joints: Mild diffuse thoracic spine degenerative changes. Soft tissues: Unremarkable. PROCEDURE INFORMATION: Exam: CT Abdomen And Pelvis With Contrast Exam date and time: 06/07/2025 4:48 PM Age: 85 years old Clinical indication: Other: Cough, SOB, nausea TECHNIQUE: Imaging protocol: Computed tomography of the abdomen and pelvis with contrast. Radiation optimization: All CT scans at this facility use at least one of these dose optimization techniques: automated exposure control; mA and/or kV adjustment per patient size (includes targeted exams where dose is matched to clinical indication); or iterative reconstruction. Contrast material: OMNI 350; Contrast volume: 100 ml; Contrast route: INTRAVENOUS (IV); COMPARISON: 1. CR (PELVIS, ) 01/01/2023 7:[address] [place] [id number] 01/02/2023 11:40 AM RADIATION DOSE METRICS: Total DLP (mGy-cm): 1037.68 FINDINGS: Liver: Normal. No mass. Gallbladder and biliary ducts: Post cholecystectomy changes are seen. Pancreas: Previously seen pancreatic body hypodense lesion has shown interval increase in size now measuring 2.9 x 2.7 cm. Spleen: Normal. No splenomegaly. Adrenal glands: Right adrenal gland adenoma 1.4 x 0.9 cm. Left adrenal gland is unremarkable. Kidneys and ureters: Bilateral renal simple cysts. Stomach and bowel: Diffuse colonic stool material. Sigmoid and descending colon diverticulosis. No small bowel loop dilatation. Appendix: Appendix is normal. Intraperitoneal space: Unremarkable. No free air. No significant fluid collection. Vasculature: Mild calcified atherosclerotic changes are seen throughout the abdominal aorta. Ectatic abdominal aorta 2.8 x 2.7 cm. Lymph nodes: Unremarkable. No enlarged lymph nodes. Urinary bladder: Unremarkable as visualized. Reproductive: Unremarkable as visualized. Bones/joints: Evaluation of the pelvis is suboptimal due to hip replacement metallic artifacts. Prior kyphoplasty changes at L2 vertebral body. Soft tissues: Stable soft tissue density nodular lesion measuring 2.4 x 1.4 cm at the umbilical level with posterior calcification. CT/CT chest [place]dp[place] w/*[id number] IMPRESSION: 1. Stable mediastinal lymph nodes. 2. New left lower lobe infiltrates. Acute Finding could represent pneumonic process. Imaging follow-up until resolution is advised. 3. Coronary calcifications. IMPRESSION: 1. Previously seen pancreatic body hypodense lesion has shown interval increase in size now measuring 2.9 x 2.7 cm. Neoplastic process can not be excluded. MRI of the pancreas without and with contrast for further evaluation is advised. 2. Diffuse colonic stool material. Clinical correlation to exclude constipation is advised. 3. Sigmoid and descending colon diverticulosis. 4. Additional findings as described. COMMENTS: Consistent with the [employer]'s Incidental Findings Committee white paper (J Am Ethan Radiol 2018): Any incidental renal lesion less than 1 cm or classified as too small to characterize, or any incidental cystic renal lesion characterized as simple-appearing, is likely benign. No follow-up imaging is recommended for these lesions per consensus recommendations based on imaging criteria.
[2025-06-07 16:25] LABS: Glucose Urine UA Negative (Normal); Nitrate Urine Negative (Negative); Specific Gravity, Urine 1.017 (1.005-1.030)
[2025-06-07 16:25] LABS: NT Pro B Type Natriuretic Pept 2066 pg/mL (0-450)
[2025-06-07 16:30] LABS: Add Urine Microscopic? YES
[2025-06-07 16:51] LABS: Respiratory Syncytial Virus Ce NEGATIVE (Negative); SARS-CoV-2 PCR NEGATIVE (Negative)
[2025-06-07] MEDS: iohexol 350 mg/mL 500 mL Btl (per mL) IV (16:53)
--- NOTE | 2025-06-07 17:17 | ECG_ITS ---
[facility] Date: 2025-06-07 Pat Name: Jesús Cole Department: Room: Gender: Male Relationship Consultant: : 1940 Requested By: Rommel Escalante Order Number: [id number] Gloria MD: Rudi Briscoe M.D. Measurements Intervals [place] Rate: 85 P: 77 GA: 177 QRS: -41 QRSD: 97 T: 67 QT: 396 QTc: 471 Interpretive Statements SINUS RHYTHM LEFT AXIS DEVIATION [QRS AXIS < -30] Compared to ECG 06/07/2025 14:55:59 Atrial flutter no longer present T-wave abnormality no longer present Possible ischemia no longer present Electronically Signed On 06-09-2025 21:03:52 MUSIC AGENT by Rudi Briscoe M.D. [email or web address]
[2025-06-07] MEDS: piperacillin-tazobactam 3.375 GM in sodium chloride 0.9% (plus) 50 ML IV (17:37)
--- NOTE | 2025-06-07 18:15 | PM.HP ---
Providers/Chief Complaint Primary Care Provider: Autumn Pierre DO Chief Complaint: sob History of Present Illness Jesús Cole is a 85 year old male with a past medical history of atrial fibrillation, COPD, CHF, who presents to [facility] due to shortness of breath, productive cough, fevers, chills, palpitations. Currently patient is alert oriented x 3, following commands, does report increased shortness of breath over the last few weeks, productive cough, fevers, chills, does report 1 episode of nausea and vomiting, palpitations, no abdominal pain, passing gas, no diarrhea, no sick contacts, recent travel, he does use 2 L oxygen at home he was placed on 3 L, Review of Systems Const: Reports: fever(s), chills, fatigue and malaise Resp: Reports: dyspnea and non-productive cough GI: Reports: diarrhea; Denies: abdominal pain : Denies: flank pain or difficulty urinating Medications/Allergies Home Medications ?Medication ?Instructions ?Recorded ?Confirmed ?Last Taken ?Type citalopram 40 mg tablet 40 mg PO DAILY #90 tabs 01/21/25 06/07/25 06/07/25 Rx tamsulosin 0.4 mg capsule (Flomax) 0.4 mg PO BEDTIME #90 caps 01/21/25 06/07/25 06/06/25 Rx docusate sodium 100 mg capsule 100 mg PO BID PRN Constipation 03/09/25 06/07/25 03/07/25 History (Colace) linagliptin 5 mg tablet (Tradjenta) 5 mg PO DAILY 03/09/25 06/07/25 06/07/25 History vit C 250 mg-vit E 90 mg-zinc 40 1 tab PO BID 03/09/25 06/07/25 06/07/25 History mg-copper 1 [id number] capsule (PreserVision AREDS-2) warfarin 3 mg tablet 3 mg PO DAILY 03/09/25 06/07/25 06/06/25 History warfarin 4 mg tablet 4 mg PO DAILY #90 tabs 03/10/25 06/07/25 Unknown Rx allopurinol 300 mg tablet 150 mg (1/2 x 300 mg) PO QAM #90 03/23/25 06/07/25 06/07/25 Rx tabs mucus clearing device #1 ea 03/26/25 06/07/25 Unknown Rx budesonide 0.5 mg/2 mL suspension 0.5 mg (2 mL) inhalation BID PRN 04/13/25 06/07/25 Unknown Rx for nebulization COPD J44.9 #60 mL formoterol fumarate 20 mcg/2 mL 2 ml inhalation BID #120 mL 04/13/25 06/07/25 06/06/25 Rx solution for nebulization (Perforomist) metoprolol tartrate 25 mg tablet 12.5 mg (1/2 x 25 mg) PO DAILY #30 04/13/25 06/07/25 06/07/25 Rx tabs bumetanide 0.5 mg tablet 0.5 mg PO .Every other day #60 tabs 04/28/25 06/07/25 06/06/25 Rx amiodarone 200 mg tablet (Pacerone) 200 mg PO DAILY #90 tabs 05/13/25 06/07/25 06/07/25 Rx albuterol sulfate 90 mcg/actuation 2 puff inhalation Q4H PRN 06/07/25 06/07/25 06/07/25 History aerosol inhaler Shortness Of Breath atorvastatin 20 mg tablet 20 mg PO BEDTIME 06/07/25 06/07/25 06/06/25 History diltiazem HCl 180 mg capsule,24 180 mg PO DAILY 06/07/25 06/07/25 06/07/25 History hr,extended release famotidine 20 mg tablet 20 mg PO BID PRN GERD 06/07/25 06/07/25 06/07/25 History fluticasone propionate 50 2 spray intranasal DAILY 06/07/25 06/07/25 Unknown History mcg/actuation nasal spray,suspension hydrocodone 5 mg-acetaminophen 325 1 tab PO .Q4-6H PRN dental Pain 06/07/25 06/07/25 Unknown History mg tablet revefenacin 175 mcg/3 mL solution 175 mcg inhalation DAILY PRN COPD 06/07/25 06/07/25 Unknown History for nebulization ([place]pe[place]ai) J44.9 Allergies Allergy/AdvReac Type Severity Reaction Status Date / Time No Known Allergies Allergy Verified 06/07/25 15:02 PFSH Acute PFSH: Medical History Bronchiectasis CKD stage 3b, GFR 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 CLL (chronic lymphocytic leukemia) Gastroesophageal reflux disease, unspecified whether esophagitis present Type 2 diabetes mellitus without complications Delirium Frontal lobe dementia Word finding difficulty Displaced fracture of right femoral neck Closed fracture of right hip Atrial fibrillation with rapid ventricular response Lymphocytosis Bradycardia Long-term (current) use of anticoagulants, INR goal 2.0-3.0 Dyslipidemia Edema leg COPD (chronic obstructive pulmonary disease) Atopic dermatitis, unspecified Gout, unspecified Orthopnea Essential (primary) hypertension Surgical History History of right hip replacement History of left hip replacement Dr. Bennett - 11/2021 at [place], [place] History of prostate surgery History of total knee replacement bilateral History of cholecystectomy Family History Other Cancer Hypertension Lung disease Denies family history of Diabetes CAD (coronary artery disease) Clotting disorder Dementia Hyperlipidemia Psychiatric illness Chronic kidney disease (CKD) Suicide Anesthesia complication Bleeding disorder Stroke Social History Smoking and tobacco/nicotine status: former use of tobacco/nicotine Quit status (tobacco/nicotine): has quit using Year quit tobacco: 2009 - 1PPD x 50 Years Second hand smoke exposure: No Alcohol intake: current Substance/Drug Use: never Lives independently: Yes Household members: spouse Marital status: Current occupational status: retired Do you think of yourself as: Straight/Heterosexual Current gender identity: Male Vitals/I&O/Wt Last Vital Signs Temp 98.6 F 06/07/25 14:52 Pulse 125 H 06/07/25 16:04 Resp 24 H 06/07/25 15:56 BP 141/89 06/07/25 14:52 Pulse Ox 95 06/07/25 15:56 O2 Del Method Nasal Cannula 06/07/25 15:56 O2 Flow Rate 2 06/07/25 15:56 06/07/25 06/07/25 06/07/25 06:59 14:59 22:59 Intake Total 0 / 0 Balance 0 / 0 Weight last 48 hrs Weight 74.843 kg Physical Exam Const: COMMON NORMALS: no acute distress and patient oriented x3 Eye: COMMON NORMALS: Equal, round and reactive pupils present Resp: COMMON NORMALS: normal respiratory effort, No retractions, No use of accessory muscles and clear to auscultation bilaterally AUSCULTATION: crackles and wheezes Cardio: COMMON NORMALS: regular rate, regular rhythm, S1 normal heart sound present and S2 normal heart sound present RATE: tachycardic RHYTHM: abnormal rhythm irregularly irregular HEART SOUNDS: S1 normal heart sound present and S2 normal heart sound present GI: COMMON NORMALS: Normal to inspection, nondistended, normoactive bowel sounds present, Soft to palpation and non-tender Extremity: COMMON NORMALS: no calf tenderness and no pedal edema Neuro: COMMON NORMALS: patient oriented x3, CN's II-XII intact bilaterally and moves all extremities Psych: COMMON NORMALS: mental status grossly normal Data 06/07/25 15:19 06/07/25 15:19 Micro: Microbiology 06/07/25 15:46 Blood Culture - Preliminary Blood SPECIMEN COLLECTED 06/07/25 15:45 Blood Culture - Preliminary Blood SPECIMEN COLLECTED A&P Assessment and plan 1. Acute hypoxic respiratory failure: 2. Pneumonia: 3. Atrial fibrillation with rapid ventricular response: 4. Sepsis: Plan: Acute hypoxic respiratory failure - Secondary to pneumonia, history of Pseudomonas respiratory infection - Secondary to COPD exacerbation - With A-fib with RVR -With sepsis Plan -Will give a liter bolus - Monitor in stepdown unit - DuoNeb - Budesonide - Blood cultures - Sputum cultures - Respiratory viral panel negative - Solu-Medrol 40 mg IV every 8 hours - Vancomycin - Zosyn - Amiodarone drip - Oxygen therapy - History of atrial fibrillation on Coumadin, pharmacy to dose Coumadin - Full code - Coumadin for DVT prophylaxis PDMP PDMP Reviewed: Last Reviewed 06/07/25 18:09 by Je Rodriguez MD Attestations Medical Necessity Statement*: Patient requires hospitalization for acute hypoxic respiratory failure secondary to pneumonia, COPD exacerbation, inpatient, greater than 2 midnights Diagnoses Acute hypoxic respiratory failure J96.01 Pneumonia J18.9 Atrial fibrillation with rapid ventricular response I48.91 Sepsis A41.9 Sepsis Event Note ED Sepsis Screening Sepsis Screen No Definite Risk Today, 14:52 Quick SOFA Score 1 Today, 14:52 If qSOFA score 2 or greater, continue SOFA Score: ABG PO2/FiO2 Ratio 207 Today, 16:07 [place] Coma Scale Score 15 Today, 14:52 Blood Pressure Mean 106 mmHg Today, 14:52 Total Bilirubin, (0.15-1.2) 1.0 mg/dL Today, 15:19 Platelet Count, (157-399) 218 10^3/cmm Today, 15:19 Creatinine, (0.7-1.2) 1.6 mg/dL H Today, 15:19 PaO2/FiO2 Ratio (mmHg): 207 [place] coma scale: 15 Blood Pressure Mean: 106 Bilirubin (mg/dl): 1.0 Platelets (x10?/ml): 218 Creatinine (mg/dl): 1.6 SOFA Score: 3 Evaluation Current stage of sepsis: sepsis Sepsis stage criteria used: [facility] Sep-1 and Sepsis-3 Crystalloid fluids: less than 30 mL/kg crystalloid fluids ordered Blood cultures ordered: Yes Focused Exam Vital signs: Temp Pulse Resp BP Pulse Ox O2 Del Method O2 Flow Rate 06/07/25 16:04 125 H 06/07/25 15:56 125 H 24 H 95 Nasal Cannula 2 06/07/25 14:52 98.6 F 128 H 23 H 141/89 91 Room Air Respiratory exam: crackles present Cardiovascular Exam: tachycardia and annormal rhythm Capillary refill: > 3 Seconds Peripheral pulse strength: 2+ Slightly Diminished Peripheral pulse location: Radial Skin exam: turgor normal Date exam was performed: 06/07/25 Time exam was performed: 18:17 Problem List 1. Acute hypoxic respiratory failure: 2. Pneumonia: 3. Atrial fibrillation with rapid ventricular response: 4. Sepsis:
[2025-06-07 19:14] LABS: INR 2.22 (0.8-1.2); Partial Thromboplastin Time 41.0 SECONDS (23.9-36.7); Prothrombin Time 25.90 SECONDS (12.1-14.9)
[2025-06-07 19:28] LABS: Procalcitonin 0.50 ng/mL (0-0.5)
[2025-06-07 21:22] LABS: Troponin 5 6HR 46.32 ng/L (0-15)
[2025-06-07 21:24] LABS: Troponin 5 6HR Delta -15.68 ng/L (0-12)
[2025-06-07 21:35] LABS: Estmated Average Glucose 123; Hemoglobin A1C 5.9 % (4.0-6.0)
[2025-06-07] MEDS: pantoprazole 40 mg SDV IVP (21:39)
[2025-06-07 21:45] LABS: Cholesterol 128 mg/dL (0-200); HDL Cholesterol 54 mg/dL (60-100); Thyroid Stimulating Hormone 2.30 uIU/mL (0.27-4.20); Triglycerides 61 mg/dL (0-150)
[2025-06-08] VITALS (14 sets, daily range): BP systolic 112–183; BP diastolic 55–83; PULSE 66–102; RESP 16–18; TEMP 36.4–36.8; O2SAT 94–97
[2025-06-08] MEDS: methylPREDNISolone sod succ 40 mg/mL INJ IVP ×5 (00:03→21:23)
[2025-06-08] MEDS: ATORVASTATIN 20 MG TABLET PO ×2 (00:04→20:41)
[2025-06-08] MEDS: piperacillin-tazobactam 3.375 GM in sodium chloride 0.9% (plus) 50 ML IV ×3 (02:19→17:05)
[2025-06-08 03:56] LABS: Hematocrit 36.6 % (37-53); Hemoglobin 12.00 g/dL (11.27-16.99); Mean Corpuscular HGB Conc 32.8 g/dL (30-55); Mean Corpuscular Hemoglobin 30.5 pg (27-33); Mean Corpuscular Volume 92.9 fl (82-101); Nucleated Red Blood Cells % 0 %; Platelet Count 186 10^3/cmm (157-399); Red Blood Count 3.94 10^6/uL (3.85-5.65); White Blood Count 22.41 10^3/uL (3.29-11.43)
[2025-06-08 04:10] LABS: INR 1.99 (0.8-1.2); Prothrombin Time 23.80 SECONDS (12.1-14.9)
[2025-06-08 04:11] LABS: Partial Thromboplastin Time 53.6 SECONDS (23.9-36.7)
[2025-06-08 04:17] LABS: Alanine Aminotransferase 16 U/L (0-41); Albumin Level 3.4 g/dL (3.5-5.2); Alkaline Phosphatase 100 U/L (40-130); Anion Gap 12.5 (5-19); Aspartate Amino Transferase 13 U/L (0-40); Blood Urea Nitrogen 30 mg/dL (8-23); Calcium 8.8 mg/dL (8.5-10.5); Carbon Dioxide 26 mmol/L (22-29); Chloride 103 mmol/L (98-107); Globulin 2.2 g/dL (1.3-4.6); Glucose 226 mg/dL (65-115); Magnesium 1.8 mg/dL (1.7-2.3); Osmolality Calculated 297 mOsm/kg (285-295); Potassium 4.5 mmol/L (3.5-5.1); Sodium 137 mmol/L (136-145); Total Protein 5.6 g/dL (6.6-8.7)
[2025-06-08] MEDS: dilTIAZem ER (24HR) 180 mg Capsule PO (04:23)
[2025-06-08 04:46] LABS: Slide Review Slide Review Perform
--- NOTE | 2025-06-08 10:05 | PC.CHAP ---
Pastoral Care Encounter/Spiritual Assessment Type of Contact [] Declined advertising columnist visit [] Patient/Family/Request visit [] Outpatient visit [] Follow-up visit [] Physician referral [] Code/Alert [x] Routine visit [] Staff referral [] Actively dying [x] Patient sleeping [] Family support [] [] Out of room [] Palliative care [] [] Receiving care in room [] Pre-surgical visit [] Trauma [] Long length of stay [] ICU visit [] Other: Relational/Emotional Strength [] Patient feels connected with others/family/visitors/staff [] Distress [] Loneliness/isolation [] Abandonment Spirituality of Patient [] Person of Shefali [] Attends Druze of their Shefali [] Believes in Prayer [] Reads Bible or Orthodox materials [] There are Spiritual issues to be addressed [employer] Interventions [] Prayer [] Active listening [] Non-anxious presence [] Spiritual/emotional support [] Crisis/trauma care [] Spiritual counseling [] Bereavement support [] Provided bereavement packet [] Provided Bible/devotional materials [] Provided toy/stuffed animal, coloring book to patient or family member [] Provided Communion [] Anointing/Temple [] Salvation [] Completed spiritual assessment [] Other: Impact on Illness or Injury [] Angry [] Fearful [] Anxious [] Often cries [] Exhaustion [] Unable to work [] Unable to attend confucianism [] Unable to walk/stand [] Unable to read [] Unable to drive [] Unable to eat/drink [] Unable to sleep [] Unable to be with family [] Patient intubated [] Other: Summary Time spent with patient
--- NOTE | 2025-06-08 14:28 | P.PN_ITS ---
Subjective 2 Subjective: on 2L feels slightly better Vitals/I&O/Wt Last Vital Signs Temp 97.7 F 06/08/25 11:25 Pulse 66 06/08/25 13:05 Resp 18 06/08/25 13:05 BP 126/55 06/08/25 11:25 Pulse Ox 94 06/08/25 13:05 O2 Del Method Nasal Cannula 06/08/25 13:05 O2 Flow Rate 2 06/08/25 13:05 06/07/25 06/08/25 06/08/25 22:59 06:59 14:59 Intake Total 50 / 50 1350 / 1400 530 / 530 Output Total 275 / 275 Balance 50 / 50 1350 / 1400 255 / 255 Weight last 48 hrs Weight 77.366 kg Weight 74.843 kg Physical Exam 2 Const: COMMON NORMALS: no acute distress and patient oriented x3 Eye: COMMON NORMALS: Equal, round and reactive pupils present PUPIL: Yes Equal, round and reactive pupils present Resp: COMMON NORMALS: normal respiratory effort, No retractions, No use of accessory muscles and clear to auscultation bilaterally AUSCULTATION: clear to auscultation bilaterally, crackles and wheezes Cardio: COMMON NORMALS: regular rate, regular rhythm, S1 normal heart sound present and S2 normal heart sound present RATE: regular rate and tachycardic RHYTHM: regular rhythm and abnormal rhythm irregularly irregular HEART SOUNDS: S1 normal heart sound present and S2 normal heart sound present GI: COMMON NORMALS: Normal to inspection, nondistended, normoactive bowel sounds present, Soft to palpation and non-tender PALPATION: Yes Soft to palpation Extremity: COMMON NORMALS: no calf tenderness and no pedal edema Neuro: COMMON NORMALS: patient oriented x3, CN's II-XII intact bilaterally and moves all extremities Psych: COMMON NORMALS: mental status grossly normal Data 06/09/25 05:58 06/09/25 05:58 Micro: Microbiology 06/07/25 16:07 Urine Culture - Preliminary Urine,Clean Catch 06/07/25 15:46 Blood Culture - Preliminary Blood SPECIMEN COLLECTED 06/07/25 15:45 Blood Culture - Preliminary Blood SPECIMEN COLLECTED A&P Assessment and plan 1. Bilateral pneumonia: 2. COPD with acute exacerbation: Plan: 1. Acute hypoxic respiratory failure: 2. Pneumonia: 3. Atrial fibrillation with rapid ventricular response: 4. Sepsis: Plan: Acute hypoxic respiratory failure - Secondary to pneumonia, history of Pseudomonas respiratory infection - Secondary to COPD exacerbation - With A-fib with RVR -With sepsis Plan - DuoNeb - Budesonide - Blood cultures - Sputum cultures - Respiratory viral panel negative - Solu-Medrol 40 mg IV every 8 hours - Vancomycin - Zosyn - Amiodarone drip - Oxygen therapy - History of atrial fibrillation on Coumadin, pharmacy to dose Coumadin - Full code - Coumadin for DVT prophylaxis PDMP PDMP Reviewed: Not Reviewed Attestations 2 Medical Necessity Statement*: wean O2, continue abx Coding Level of Care Code 25330 Diagnoses Bilateral pneumonia J18.9 COPD with acute exacerbation J44.1
--- NOTE | 2025-06-08 14:57 | PHA.VACGOAL ---
Vancomycin Goal - Goal Vancomycin Goal:: 15-20 mg/L Vancomycin Indication:: Pneumonia - Therapy Day of therpy:: Day []of [] . Actual body weight (kg): 77.366 kg - Data Labs: WBC 22.41 10^3/uL (3.29-11.43) H 06/08/25 03:31 RBC 3.94 10^6/uL (3.85-5.65) 06/08/25 03:31 Hgb 12.00 g/dL (11.27-16.99) 06/08/25 03:31 Hct 36.6 % (37-53) L 06/08/25 03:31 MCV 92.9 fl (82-101) 06/08/25 03:31 MCH 30.5 pg (27-33) 06/08/25 03:31 MCHC 32.8 g/dL (30-55) 06/08/25 03:31 RDW 15.3 % (12.1-15.1) H 06/08/25 03:31 Sodium 137 mmol/L (136-145) 06/08/25 03:31 Potassium 4.5 mmol/L (3.5-5.1) 06/08/25 03:31 Chloride 103 mmol/L (98-107) 06/08/25 03:31 Carbon Dioxide 26 mmol/L (22-29) 06/08/25 03:31 Anion Gap 12.5 (5-19) 06/08/25 03:31 BUN 30 mg/dL (8-23) H 06/08/25 03:31 Creatinine 1.6 mg/dL (0.7-1.2) H 06/08/25 03:31 GFR Calculation Not Reportable 06/08/25 03:31 Treatment plan:: new consult Regimen:: 1000mg Q24H PER TELEPHARMACY CONTINUE
[2025-06-08] MEDS: pantoprazole 40 mg SDV IVP (20:41)
[2025-06-09] VITALS (16 sets, daily range): BP systolic 134–154; BP diastolic 44–69; PULSE 70–124; RESP 16–19; TEMP 36.4–36.6; O2SAT 95–97
[2025-06-09] MEDS: piperacillin-tazobactam 3.375 GM in sodium chloride 0.9% (plus) 50 ML IV ×3 (01:00→17:55)
[2025-06-09] MEDS: dilTIAZem ER (24HR) 180 mg Capsule PO (04:24)
[2025-06-09] MEDS: methylPREDNISolone sod succ 40 mg/mL INJ IVP (04:24)
[2025-06-09 06:18] LABS: Hematocrit 35.3 % (37-53); Hemoglobin 11.50 g/dL (11.27-16.99); Mean Corpuscular HGB Conc 32.6 g/dL (30-55); Mean Corpuscular Hemoglobin 29.9 pg (27-33); Mean Corpuscular Volume 91.9 fl (82-101); Nucleated Red Blood Cells % 0 %; Platelet Count 186 10^3/cmm (157-399); Red Blood Count 3.84 10^6/uL (3.85-5.65); White Blood Count 23.09 10^3/uL (3.29-11.43)
[2025-06-09 06:29] LABS: INR 2.15 (0.8-1.2); Prothrombin Time 25.30 SECONDS (12.1-14.9)
[2025-06-09 06:30] LABS: Partial Thromboplastin Time 44.8 SECONDS (23.9-36.7)
[2025-06-09 06:34] LABS: Alanine Aminotransferase 14 U/L (0-41); Albumin Level 3.5 g/dL (3.5-5.2); Alkaline Phosphatase 96 U/L (40-130); Anion Gap 16.3 (5-19); Aspartate Amino Transferase 10 U/L (0-40); Blood Urea Nitrogen 49 mg/dL (8-23); Calcium 9.0 mg/dL (8.5-10.5); Carbon Dioxide 24 mmol/L (22-29); Chloride 101 mmol/L (98-107); Globulin 2.3 g/dL (1.3-4.6); Glucose 250 mg/dL (65-115); Magnesium 2.0 mg/dL (1.7-2.3); Osmolality Calculated 305 mOsm/kg (285-295); Potassium 4.3 mmol/L (3.5-5.1); Sodium 137 mmol/L (136-145); Total Protein 5.8 g/dL (6.6-8.7)
--- NOTE | 2025-06-09 09:11 | PC.CHAP ---
Pastoral Care Encounter/Spiritual Assessment Type of Contact [] Declined circuit rider visit [] Patient/Family/Request visit [] Outpatient visit [] Follow-up visit [] Physician referral [] Code/Alert [x] Routine visit [] Staff referral [] Actively dying [] Patient sleeping [] Family support [] [] Out of room [] Palliative care [] [] Receiving care in room [] Pre-surgical visit [] Trauma [] Long length of stay [] ICU visit [] Other: Relational/Emotional Strength [x] Patient feels connected with others/family/visitors/staff [] Distress [] Loneliness/isolation [] Abandonment Spirituality of Patient [x] Person of Shefali [] Attends Islam of their Shefali [x] Believes in Prayer [] Reads Bible or Episcopalian materials [] There are Spiritual issues to be addressed [employer] Interventions [x] Prayer [x] Active listening [x] Non-anxious presence [x] Spiritual/emotional support [] Crisis/trauma care [] Spiritual counseling [] Bereavement support [] Provided bereavement packet [] Provided Bible/devotional materials [] Provided toy/stuffed animal, coloring book to patient or family member [] Provided Communion [] Anointing/[place] [] Salvation [x] Completed spiritual assessment [] Other: Impact on Illness or Injury [] Angry [] Fearful [] Anxious [] Often cries [] Exhaustion [] Unable to work [] Unable to attend moravian [] Unable to walk/stand [] Unable to read [] Unable to drive [] Unable to eat/drink [] Unable to sleep [] Unable to be with family [] Patient intubated [] Other: Summary Time spent with patient 5 min
--- NOTE | 2025-06-09 13:50 | P.PN_ITS ---
Subjective 2 Subjective: Feels ready to go home. Amiodarone drip discontinued today. Started on oral amiodarone. Denies any chest pain or palpitations Vitals/I&O/Wt Last Vital Signs Temp 97.6 F 06/09/25 11:27 Pulse 101 H 06/09/25 11:31 Resp 18 06/09/25 11:31 BP 144/62 06/09/25 11:27 Pulse Ox 97 06/09/25 11:31 O2 Del Method Nasal Cannula 06/09/25 11:31 O2 Flow Rate 2 06/09/25 11:31 06/08/25 06/09/25 06/09/25 22:59 06:59 14:59 Intake Total 740 / 1270 250 / 1520 840 / 840 Output Total 200 / 475 200 / 200 Balance 740 / 995 50 / 1045 640 / 640 Weight last 48 hrs Weight 75.342 kg Weight 77.366 kg Weight 74.843 kg Physical Exam 2 Const: COMMON NORMALS: no acute distress and patient oriented x3 Eye: COMMON NORMALS: Equal, round and reactive pupils present PUPIL: Yes Equal, round and reactive pupils present Resp: COMMON NORMALS: normal respiratory effort, No retractions, No use of accessory muscles and clear to auscultation bilaterally AUSCULTATION: clear to auscultation bilaterally, crackles and wheezes Cardio: COMMON NORMALS: regular rate, regular rhythm, S1 normal heart sound present and S2 normal heart sound present RATE: regular rate and tachycardic RHYTHM: regular rhythm and abnormal rhythm irregularly irregular HEART SOUNDS: S1 normal heart sound present and S2 normal heart sound present GI: COMMON NORMALS: Normal to inspection, nondistended, normoactive bowel sounds present, Soft to palpation and non-tender PALPATION: Yes Soft to palpation Extremity: COMMON NORMALS: no calf tenderness and no pedal edema Neuro: COMMON NORMALS: patient oriented x3, CN's II-XII intact bilaterally and moves all extremities Psych: COMMON NORMALS: mental status grossly normal Data 06/09/25 05:58 06/09/25 05:58 Micro: Microbiology 06/07/25 16:07 Urine Culture - Preliminary Urine,Clean Catch 06/07/25 15:46 Blood Culture - Preliminary Blood NEGATIVE TO DATE 06/07/25 15:45 Blood Culture - Preliminary Blood NEGATIVE TO DATE A&P Assessment and plan 1. Atrial fibrillation with rapid ventricular response: Plan: 1. Acute hypoxic respiratory failure: 2. Pneumonia: 3. Atrial fibrillation with rapid ventricular response: 4. Sepsis: Oral amiodarone continue antibiotics wean steroids anticipate DC in a.m. on coumadn PDMP PDMP Reviewed: Not Reviewed Attestations 2 Medical Necessity Statement*: Monitor overnight off amiodarone drip will likely discharge in a.m. Coding Level of Care Code 34006 Diagnoses Atrial fibrillation with rapid ventricular response I48.91
--- NOTE | 2025-06-09 17:10 | PM.CONSULT ---
Providers/Reason For Consult Consulting Physician/Specialty*: My name/cardiology Reason for Consult*: Patient with atrial fibrillation and rapid ventricular rate Requesting Physician: Dr. Chen Attending Physician: Freddy Chen MD Primary Care Provider: Autumn Pierre DO History of Present Illness History of Present Illness Jesús Cole is a 85 year old male with a multiple medical problems including severe COPD, is admitted to hospital with complaints of worsening shortness of breath, cough and low-grade fever. He was found to have features of bilateral pneumonia. He also was found to be atrial fibrillation with rapid ventricular rate. He has a history of chronic atrial fibrillation. Cardiology consult is requested for further cardiac evaluation recommendations. This patient is known to have chronic atrial fibrillation and is on long-term anticoagulation. He also is known to have type 2 diabetes, high blood pressure, dyslipidemia, heart failure with preserved ejection fraction, recurrent bronchitis, chronic lymphoid leukemia and degenerative joint disease. He was on IV amiodarone. The heart rate seems to be under control. He denies any chest pain or chest tightness. The shortness of breath has significantly improved. Currently he is taking the p.o. amiodarone. Telemetry shows atrial fibrillation with a ventricular rate of around 70 bpm. Review of Systems Narrative: CONSTITUTIONAL: No fever or chills. EYES: No blurring of vision or other visual disturbances lately. ENT: No hoarseness of voice, auditory disturbances or sore throat. CARDIOVASCULAR: As mentioned above. RESPIRATORY: As mentioned above GASTROINTESTINAL: No hematemesis or melena. GENITOURINARY: No dysuria or hematuria. INTEGUMENTARY: No skin rashes or history of skin cancer. NEURO: No transient ischemic attacks or amaurosis. PSYCHIATRIC: No history of psychosis or major depression. HEMATOLOGIC: History of chronic lymphoid leukemia ENDOCRINE: History of type 2 diabetes MUSCULOSKELETAL: No recent joint pain or swelling. ALLERGY/IMMUNOLOGY: As mentioned above. Medications/Allergies Home Medications ?Medication ?Instructions ?Recorded ?Confirmed ?Last Taken ?Type citalopram 40 mg tablet 40 mg PO DAILY #90 tabs 01/21/25 06/07/25 06/07/25 Rx tamsulosin 0.4 mg capsule (Flomax) 0.4 mg PO BEDTIME #90 caps 01/21/25 06/07/25 06/06/25 Rx docusate sodium 100 mg capsule 100 mg PO BID PRN Constipation 03/09/25 06/07/25 03/07/25 History (Colace) linagliptin 5 mg tablet (Tradjenta) 5 mg PO DAILY 03/09/25 06/07/25 06/07/25 History vit C 250 mg-vit E 90 mg-zinc 40 1 tab PO BID 03/09/25 06/07/25 06/07/25 History mg-copper 1 [id number] capsule (PreserVision AREDS-2) warfarin 3 mg tablet 3 mg PO DAILY 03/09/25 06/07/25 06/06/25 History warfarin 4 mg tablet 4 mg PO DAILY #90 tabs 03/10/25 06/07/25 Unknown Rx allopurinol 300 mg tablet 150 mg (1/2 x 300 mg) PO QAM #90 03/23/25 06/07/25 06/07/25 Rx tabs mucus clearing device #1 ea 03/26/25 06/07/25 Unknown Rx budesonide 0.5 mg/2 mL suspension 0.5 mg (2 mL) inhalation BID PRN 04/13/25 06/07/25 Unknown Rx for nebulization COPD J44.9 #60 mL formoterol fumarate 20 mcg/2 mL 2 ml inhalation BID #120 mL 04/13/25 06/07/25 06/06/25 Rx solution for nebulization (Perforomist) metoprolol tartrate 25 mg tablet 12.5 mg (1/2 x 25 mg) PO DAILY #30 04/13/25 06/07/25 06/07/25 Rx tabs bumetanide 0.5 mg tablet 0.5 mg PO .Every other day #60 tabs 04/28/25 06/07/25 06/06/25 Rx amiodarone 200 mg tablet (Pacerone) 200 mg PO DAILY #90 tabs 05/13/25 06/07/25 06/07/25 Rx albuterol sulfate 90 mcg/actuation 2 puff inhalation Q4H PRN 06/07/25 06/07/25 06/07/25 History aerosol inhaler Shortness Of Breath atorvastatin 20 mg tablet 20 mg PO BEDTIME 06/07/25 06/07/25 06/06/25 History diltiazem HCl 180 mg capsule,24 180 mg PO DAILY 06/07/25 06/07/25 06/07/25 History hr,extended release famotidine 20 mg tablet 20 mg PO BID PRN GERD 06/07/25 06/07/25 06/07/25 History fluticasone propionate 50 2 spray intranasal DAILY 06/07/25 06/07/25 Unknown History mcg/actuation nasal spray,suspension hydrocodone 5 mg-acetaminophen 325 1 tab PO .Q4-6H PRN dental Pain 06/07/25 06/07/25 Unknown History mg tablet revefenacin 175 mcg/3 mL solution 175 mcg inhalation DAILY PRN COPD 06/07/25 06/07/25 Unknown History for nebulization (Yujaylai) J44.9 Allergies Allergy/AdvReac Type Severity Reaction Status Date / Time No Known Allergies Allergy Verified 06/07/25 15:02 Current Medications Generic Name Dose Route Start Last Admin Trade Name Freq PRN Reason Stop Dose Admin Albuterol/Ipratropium 3 ml 06/07/25 21:10 06/09/25 15:04 Ipratropium-Albuterol 3 Ml Neb INHALATION 3 ml QID.RESPIRATORY MARCOS Administration Allopurinol 150 mg 06/08/25 05:00 06/09/25 04:24 Allopurinol 300 Mg Tablet PO 150 mg QAM MARCOS Administration Amiodarone HCl 200 mg 06/09/25 09:30 06/09/25 10:52 Amiodarone 200 Mg Tablet PO 200 mg BID MARCOS Administration Atorvastatin Calcium 20 mg 06/07/25 21:28 06/08/25 20:41 Atorvastatin 20 Mg Tablet PO 20 mg BEDTIME MARCOS Administration Budesonide 0.5 mg 06/07/25 21:10 06/09/25 08:02 Budesonide 0.5 Mg/2 Ml Neb INHALATION 0.5 mg BID.RESPIRATORY MARCOS Administration Citalopram Hydrobromide 40 mg 06/08/25 05:00 06/09/25 04:24 Citalopram 20 Mg Tablet PO 40 mg DAILY MARCOS Administration Diltiazem HCl 180 mg 06/08/25 05:00 06/09/25 04:24 Diltiazem Er (24hr) 180 Mg Capsule PO 180 mg DAILY MARCOS Administration Piperacillin Sod/Tazobactam 50 mls @ 12.5 mls/hr 06/08/25 02:00 06/09/25 10:51 Sod 3.375 gm/ Sodium Chloride IV 12.5 mls/hr Q8H MARCOS Administration Vancomycin HCl 1,000 mg/ 250 mls @ 250 mls/hr 06/08/25 22:00 06/08/25 22:41 Sodium Chloride IV Infused Q24H MARCOS Infusion Pantoprazole Sodium 40 mg 06/07/25 21:10 06/08/25 20:41 Pantoprazole 40 Mg Sdv IVP 40 mg Q24H MARCOS Administration Tamsulosin HCl 0.4 mg 06/07/25 21:10 06/08/25 20:41 Tamsulosin 0.4 Mg Capsule PO 0.4 mg BEDTIME MARCOS Administration Warfarin Sodium 3 mg 06/08/25 14:00 06/09/25 14:49 Warfarin 3 Mg Tablet PO 3 mg 1400 MARCOS Administration PFSH Acute PFSH: Medical History (Updated 06/09/25 @ 21:21 by Rudi Briscoe MD) Atrial fibrillation with rapid ventricular response Bronchiectasis CKD stage 3b, GFR 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 CLL (chronic lymphocytic leukemia) Gastroesophageal reflux disease, unspecified whether esophagitis present Type 2 diabetes mellitus without complications Delirium Frontal lobe dementia Word finding difficulty Displaced fracture of right femoral neck Closed fracture of right hip Lymphocytosis Bradycardia Long-term (current) use of anticoagulants, INR goal 2.0-3.0 Dyslipidemia Edema leg COPD (chronic obstructive pulmonary disease) Atopic dermatitis, unspecified Gout, unspecified Orthopnea Essential (primary) hypertension Surgical History History of right hip replacement History of left hip replacement Dr. Bennett - 11/2021 at [place], [place] History of prostate surgery History of total knee replacement bilateral History of cholecystectomy Family History Other Cancer Hypertension Lung disease Denies family history of Diabetes CAD (coronary artery disease) Clotting disorder Dementia Hyperlipidemia Psychiatric illness Chronic kidney disease (CKD) Suicide Anesthesia complication Bleeding disorder Stroke Social History Smoking and tobacco/nicotine status: former use of tobacco/nicotine Quit status (tobacco/nicotine): has quit using Year quit tobacco: 2009 - 1PPD x 50 Years Second hand smoke exposure: No Alcohol intake: current Substance/Drug Use: never Lives independently: Yes Household members: spouse Marital status: Current occupational status: retired Do you think of yourself as: Straight/Heterosexual Current gender identity: Male Vitals/I&O/Wt Last Vital Signs Temp 97.9 F 06/09/25 15:35 Pulse 73 06/09/25 15:35 Resp 16 06/09/25 15:35 BP 134/64 06/09/25 15:35 Pulse Ox 96 06/09/25 15:35 O2 Del Method Nasal Cannula 06/09/25 15:35 O2 Flow Rate 2 06/09/25 15:04 06/09/25 06/09/25 06/09/25 06:59 14:59 22:59 Intake Total 250 / 1520 840 / 840 Output Total 200 / 475 200 / 200 Balance 50 / 1045 640 / 640 Weight last 48 hrs Weight 166 lb 1.6 oz Weight 170 lb 9 oz Physical Exam Narrative: GENERAL: The patient is alert and oriented times three. Not in any acute distress. HEENT: No significant pallor, icterus or lymphadenopathy.Oral cavity: There are no mucous membrane lesions. NECK: Trachea appears to be central. No masses noted. No JVD or thyromegaly appreciated. RESPIRATORY: Breath sounds are heard bilaterally with diminished intensity of breath sounds to the bases. Scattered coarse crackles. Occasional wheezing BREASTS: Deferred. HEART: The heart sounds are normal. No S3 or S4. No significant murmurs. No pericardial rub ABDOMEN: No vessel pulsations or distention. No tenderness. No organomegaly appreciated. Bowel sounds are normally heard. : Deferred. RECTAL: Deferred. LYMPHATIC: No lymphadenopathy noted in the neck. EXTREMITIES: No edema or cyanosis. No clubbing. MUSCULOSKELETAL: No acute joint deformities or swelling SKIN: There are no significant rashes or ecchymosis NEUROPSYCHIATRIC: The patient is alert and oriented x3. Appears to be in a good mood. No tremors or rigidity noted. Data 06/09/25 05:58 06/09/25 05:58 Other Labs: Laboratory Last Values WBC 23.09 10^3/uL (3.29-11.43) H 06/09/25 05:58 RBC 3.84 10^6/uL (3.85-5.65) L 06/09/25 05:58 Hgb 11.50 g/dL (11.27-16.99) 06/09/25 05:58 Hct 35.3 % (37-53) L 06/09/25 05:58 MCV 91.9 fl (82-101) 06/09/25 05:58 MCH 29.9 pg (27-33) 06/09/25 05:58 MCHC 32.6 g/dL (30-55) 06/09/25 05:58 RDW 15.5 % (12.1-15.1) H 06/09/25 05:58 Plt Count 186 10^3/cmm (157-399) 06/09/25 05:58 MPV 10.4 fL (7.4-10.4) 06/09/25 05:58 Neut % (Auto) 81.1 % 06/09/25 05:58 Lymph % (Auto) 14.0 % 06/09/25 05:58 [place] % (Auto) 2.8 % 06/09/25 05:58 Eos % (Auto) 0.0 % 06/09/25 05:58 Baso % (Auto) 0.1 % 06/09/25 05:58 Neut # (Auto) 18.72 10^3/uL (1.8-7.7) H 06/09/25 05:58 Lymph # (Auto) 3.2 10^3/uL (0.8-4.8) 06/09/25 05:58 [place] # (Auto) 0.7 10^3/uL (0.2-0.9) 06/09/25 05:58 Eos # (Auto) 0.0 10^3/uL (0.0-0.8) 06/09/25 05:58 Baso # (Auto) 0.0 10^3/uL (0.0-0.1) 06/09/25 05:58 Nucleated RBC % (auto) 0 % 06/09/25 05:58 Nucleated RBCs # 0.0 /100WBC 06/09/25 05:58 PT 25.30 SECONDS (12.1-14.9) H 06/09/25 05:58 INR 2.15 (0.8-1.2) H 06/09/25 05:58 APTT 44.8 SECONDS (23.9-36.7) H 06/09/25 05:58 Specimen Type Arterial 06/07/25 16:07 Sample Site Radial, left 06/07/25 16:07 ABG pH 7.45 (7.35-7.45) 06/07/25 16:07 ABG pCO2 35.9 mmHg (35-45) 06/07/25 16:07 ABG pO2 58.0 mmHg (80.0-100.0) L 06/07/25 16:07 ABG PO2/FiO2 Ratio 207 06/07/25 16:07 ABG HCO3 25.0 mmol/L (22-26) 06/07/25 16:07 ABG O2 Saturation 93.2 06/07/25 16:07 ABG Base Excess 1.3 mmol/L (-2.0-2.0) 06/07/25 16:07 Hema Test Pos 06/07/25 16:07 A-a O2 Gradient 12.9 mmHg (5-10) H 06/07/25 16:07 Hematocrit 43.5 % (42-52) 06/07/25 16:07 Hgb O2 Saturation 91.0 % (95-100) L 06/07/25 16:07 Carboxyhemoglobin 1.2 %THgb (0.4-20.1) 06/07/25 16:07 Methemoglobin 1.1 % (0.4-1.5) 06/07/25 16:07 Total Hemoglobin 14.2 g/dL (14-18) 06/07/25 16:07 Sodium 140.0 mmol/L (131-143) 06/07/25 16:07 Potassium 4.4 mmol/L (3.5-5.0) 06/07/25 16:07 Glucose 160.0 mg/dL (70-115) H 06/07/25 16:07 Ionized Calcium 1.2 mmol/L (1.1-1.4) 06/07/25 16:07 O2 Delivery Device Nc 06/07/25 16:07 O2 Liters/Min 2.0 % 06/07/25 16:07 FiO2 28.0 % 06/07/25 16:07 Principal Solutions Architect ID Lc 06/07/25 16:07 Sodium 137 mmol/L (136-145) 06/09/25 05:58 Potassium 4.3 mmol/L (3.5-5.1) 06/09/25 05:58 Chloride 101 mmol/L (98-107) 06/09/25 05:58 Carbon Dioxide 24 mmol/L (22-29) 06/09/25 05:58 Anion Gap 16.3 (5-19) 06/09/25 05:58 BUN 49 mg/dL (8-23) H 06/09/25 05:58 Creatinine 2.3 mg/dL (0.7-1.2) H 06/09/25 05:58 GFR Calculation Not Reportable 06/09/25 05:58 Glucose 250 mg/dL (65-115) H 06/09/25 05:58 POC Glucose 294 mg/dL (70-110) H 06/09/25 19:22 Estimat Average Glucose 123 06/07/25 15:19 Hemoglobin A1c 5.9 % (4.0-6.0) 06/07/25 15:19 Calculated Osmolality 305 mOsm/kg (285-295) H 06/09/25 05:58 Lactic Acid 1.5 mmol/L (0.5-2.2) 06/07/25 15:19 Calcium 9.0 mg/dL (8.5-10.5) 06/09/25 05:58 Phosphorus 2.7 mg/dL (2.5-4.5) 06/09/25 05:58 Magnesium 2.0 mg/dL (1.7-2.3) 06/09/25 05:58 Total Bilirubin 0.4 mg/dL (0.15-1.2) 06/09/25 05:58 AST 10 U/L (0-40) 06/09/25 05:58 ALT 14 U/L (0-41) 06/09/25 05:58 Alkaline Phosphatase 96 U/L (40-130) 06/09/25 05:58 Troponin T Baseline 62 ng/L (0-15) H 06/07/25 15:19 Troponin T 120 Minute 49.77 ng/L (0-15) H 06/07/25 17:33 Delta Troponin T -12.23 ABS# (0-10) L 06/07/25 17:33 Troponin T Hi Sens 6Hr 46.32 ng/L (0-15) H 06/07/25 21:01 Troponin T Hi Sens 6Hr Delta -15.68 ng/L (0-12) L 06/07/25 21:01 NT-Pro-B Natriuret Pep 2066 pg/mL (0-450) H 06/07/25 15:19 Total Protein 5.8 g/dL (6.6-8.7) L 06/09/25 05:58 Albumin 3.5 g/dL (3.5-5.2) 06/09/25 05:58 Globulin 2.3 g/dL (1.3-4.6) 06/09/25 05:58 Triglycerides 61 mg/dL (0-150) 06/07/25 15:19 Cholesterol 128 mg/dL (0-200) 06/07/25 15:19 LDL Cholesterol, Calc 62 mg/dL (50-129) 06/07/25 15:19 HDL Cholesterol 54 mg/dL (60-100) L 06/07/25 15:19 LDL/HDL Ratio 1.15 RATIO (0.00-3.22) 06/07/25 15:19 Cholesterol/HDL Ratio 2.37 mg/dL (1.0-5.00) 06/07/25 15:19 Procalcitonin 0.48 ng/mL (0-0.5) 06/07/25 15:19 Procalcitonin 0.50 ng/mL (0-0.5) 06/07/25 15:19 TSH 2.30 uIU/mL (0.27-4.20) 06/07/25 15:19 Urine Color Yellow (Yellow) 06/07/25 16:07 Urine Appearance Clear (CLEAR) 06/07/25 16:07 Urine pH 7.0 (5-7) 06/07/25 16:07 Ur Specific [place] 1.017 (1.005-1.030) 06/07/25 16:07 Urine Protein 3+ (Negative) A 06/07/25 16:07 Urine Glucose (UA) Negative (Normal) 06/07/25 16:07 Urine Ketones Trace (Negative) 06/07/25 16:07 Urine Blood 2+ (Negative) A 06/07/25 16:07 Urine Nitrate Negative (Negative) 06/07/25 16:07 Urine Bilirubin Negative (Negative) 06/07/25 16:07 Urine Urobilinogen 1.0 mg/dL (Negative) 06/07/25 16:07 Ur Leukocyte Esterase Negative (Negative) 06/07/25 16:07 Urine RBC 21-50 /hpf (0-2) H 06/07/25 16:07 Urine WBC 0-5 /hpf (0-5) 06/07/25 16:07 Ur Squamous Epith Cells 0-5 /hpf (0-5) 06/07/25 16:07 Amorphous Sediment Not Reportable 06/07/25 16:07 Urine Bacteria None seen /hpf (NONE) 06/07/25 16:07 Hyaline Casts 0.81 /lpf 06/07/25 16:07 Influenza A (PCR) Negative (Negative) 06/07/25 16:10 Influenza Type B (PCR) Negative (Negative) 06/07/25 16:10 RSV (PCR) Negative (Negative) 06/07/25 16:10 SARS-CoV-2 (PCR) Negative (Negative) 06/07/25 16:10 Micro: Microbiology 06/07/25 16:07 Urine Culture - Preliminary Urine,Clean Catch 06/07/25 15:46 Blood Culture - Preliminary Blood NEGATIVE TO DATE 06/07/25 15:45 Blood Culture - Preliminary Blood NEGATIVE TO DATE A&P Assessment and plan 1. Atrial fibrillation with rapid ventricular response: Patient has a history of chronic atrial fibrillation. Currently the ventricular rate seems to be under control. May continue the current medication. 2. Chronic heart failure with preserved ejection fraction (HFpEF): The heart failure is compensated. They continue on the current management. 3. Essential (primary) hypertension: Currently normotensive. 4. CLL (chronic lymphocytic leukemia): Clinically stable. 5. Pneumonia of both lower lobes due to infectious organism: The oxygenation seems to be appropriate. Patient is remaining afebrile. 6. Acute on chronic renal insufficiency: Kidney function seems to be stable 7. Dyslipidemia: Continue on the current medications 8. Type 2 diabetes mellitus with stage 3b chronic kidney disease, without long-term current use of insulin: Continue on the current management 9. COPD exacerbation: Respiratory status seems to be stable. Plan: Patient's overall Cardi status seems to be stable. May continue on the current dose of the amiodarone. The dose may be tapered down to 200 mg p.o. daily PDMP PDMP Reviewed: Not Reviewed Consult Attestations Medical Necessity Statement: Deferred to the primary Coding Level of Care Code 84666 Diagnoses Atrial fibrillation with rapid ventricular response I48.91 Chronic heart failure with preserved ejection fraction (HFpEF) I50.32 Heart failure chronicity: chronic Essential (primary) hypertension I10 CLL (chronic lymphocytic leukemia) C91.10 Pneumonia of both lower lobes due to infectious organism J18.9 Pneumonia type: due to unspecified organism Lung location: lower lobe of lung Acute on chronic renal insufficiency N28.9; N18.9 Dyslipidemia E78.5 Type 2 diabetes mellitus with stage 3b chronic kidney disease, without long-term current use of insulin E11.22; N18.32 Diabetes mellitus correction insulin use: without correction use Diabetes mellitus complication status: with kidney complications Diabetes mellitus complication detail: with chronic kidney disease Chronic kidney disease stage: stage 3 (moderate) Chronic kidney disease stage 3 subtype: stage 3b (GFR 30-44) COPD exacerbation J44.1
[2025-06-09] MEDS: ATORVASTATIN 20 MG TABLET PO (20:49)
[2025-06-09] MEDS: pantoprazole 40 mg SDV IVP (20:49)
[2025-06-10] VITALS (15 sets, daily range): BP systolic 140–151; BP diastolic 70–82; PULSE 69–122; RESP 14–18; TEMP 36.6–37.2; O2SAT 92–98
[2025-06-10] MEDS: piperacillin-tazobactam 3.375 GM in sodium chloride 0.9% (plus) 50 ML IV ×3 (01:12→17:09)
[2025-06-10] MEDS: dilTIAZem ER (24HR) 180 mg Capsule PO (04:25)
[2025-06-10 04:47] LABS: Hematocrit 34.5 % (37-53); Hemoglobin 11.50 g/dL (11.27-16.99); Mean Corpuscular HGB Conc 33.3 g/dL (30-55); Mean Corpuscular Hemoglobin 30.3 pg (27-33); Mean Corpuscular Volume 90.8 fl (82-101); Nucleated Red Blood Cells % 0 %; Platelet Count 198 10^3/cmm (157-399); Red Blood Count 3.80 10^6/uL (3.85-5.65); White Blood Count 23.81 10^3/uL (3.29-11.43)
[2025-06-10 05:01] LABS: INR 1.66 (0.8-1.2); Prothrombin Time 20.60 SECONDS (12.1-14.9)
[2025-06-10 05:02] LABS: Partial Thromboplastin Time 35.7 SECONDS (23.9-36.7)
[2025-06-10 05:13] LABS: Alanine Aminotransferase 15 U/L (0-41); Albumin Level 3.6 g/dL (3.5-5.2); Alkaline Phosphatase 88 U/L (40-130); Anion Gap 18.6 (5-19); Aspartate Amino Transferase 9 U/L (0-40); Blood Urea Nitrogen 59 mg/dL (8-23); Calcium 8.8 mg/dL (8.5-10.5); Carbon Dioxide 22 mmol/L (22-29); Chloride 100 mmol/L (98-107); Globulin 1.8 g/dL (1.3-4.6); Glucose 182 mg/dL (65-115); Magnesium 2.1 mg/dL (1.7-2.3); Osmolality Calculated 303 mOsm/kg (285-295); Potassium 4.6 mmol/L (3.5-5.1); Sodium 136 mmol/L (136-145); Total Protein 5.4 g/dL (6.6-8.7)
--- NOTE | 2025-06-10 10:06 | P.PN_ITS ---
Subjective 2 Subjective: The patient is feeling okay. Telemetry still shows atrial fibrillation with a controlled ventricular response rate Medications: Medication Review Details: Current Medications Acetaminophen (Acetaminophen 325 Mg Tablet) 650 mg PO Q6H PRN PRN Reason: Mild/Mod Pain Or Temp >/= 101 Albuterol/Ipratropium (Ipratropium-Albuterol 3 Ml Neb) 3 ml INHALATION QID.RESPIRATORY MARCOS Last Admin: 06/10/25 07:33 Dose: 3 ml Allopurinol (Allopurinol 300 Mg Tablet) 150 mg PO QAM MARCOS Last Admin: 06/10/25 04:25 Dose: 150 mg Amiodarone HCl (Amiodarone 200 Mg Tablet) 200 mg PO BID MARCOS Last Admin: 06/10/25 04:29 Dose: 200 mg Atorvastatin Calcium (Atorvastatin 20 Mg Tablet) 20 mg PO BEDTIME MARCOS Last Admin: 06/09/25 20:49 Dose: 20 mg Budesonide (Budesonide 0.5 Mg/2 Ml Neb) 0.5 mg INHALATION BID.RESPIRATORY MARCOS Last Admin: 06/10/25 07:33 Dose: 0.5 mg Citalopram Hydrobromide (Citalopram 20 Mg Tablet) 40 mg PO DAILY MARCOS Last Admin: 06/10/25 04:25 Dose: 40 mg Diltiazem HCl (Diltiazem Er (24hr) 180 Mg Capsule) 180 mg PO DAILY [facility] Last Admin: 06/10/25 04:25 Dose: 180 mg Glucagon (Glucagon 1 Mg/Ml Kit 1 Ml) 1 mg IM ONCE PRN; Protocol PRN Reason: Adult Acute Hypoglycemia Nursing Prot. Glucagon (Glucagon 1 Mg/Ml Kit 1 Ml) 1 mg IM ONCE PRN; Protocol PRN Reason: Adult Acute Hypoglycemia Nursing Prot. Dextrose (D5w) 500 mls @ 0 mls/hr IV ONCE PRN; Protocol PRN Reason: Adult Acute Hypoglycemia Prot Dextrose (D10w) 125 mls @ 750 mls/hr IV PRN PRN; Protocol PRN Reason: Adult Acute Hypoglycemia Nursing Protocol Dextrose (D10w) 250 mls @ 1,000 mls/hr IV PRN PRN; Protocol PRN Reason: Adult Acute Hypoglycemia Nursing Protocol Piperacillin Sod/Tazobactam (Sod 3.375 gm/ Sodium Chloride) 50 mls @ 12.5 mls/hr IV Q8H MARCOS Last Admin: 06/10/25 09:04 Dose: 12.5 mls/hr Dextrose (D5w) 500 mls @ 0 mls/hr IV ONCE PRN; Protocol PRN Reason: Adult Acute Hypoglycemia Prot Dextrose (D10w) 125 mls @ 750 mls/hr IV PRN PRN; Protocol PRN Reason: Adult Acute Hypoglycemia Nursing Protocol Dextrose (D10w) 250 mls @ 1,000 mls/hr IV PRN PRN; Protocol PRN Reason: Adult Acute Hypoglycemia Nursing Protocol Insulin Human Lispro (Insulin Lispro 100 Unit/1 Ml) 0 unit SUBCUT WM&BEDTIME MARCOS; Protocol Last Admin: 06/10/25 09:03 Dose: 4 unit Morphine Sulfate (Morphine 4 Mg/Ml Sdv 1 Ml) 2 mg IVP Q4H PRN PRN Reason: SEVERE PAIN Ondansetron HCl (Ondansetron 2 Mg/Ml Sdv 2 Ml) 4 mg IVP Q8H PRN PRN Reason: vomiting, or N/V if npo Prednisone (Prednisone 20 Mg Tablet) 40 mg PO DAILY [facility] Last Admin: 06/10/25 04:25 Dose: 40 mg Tamsulosin HCl (Tamsulosin 0.4 Mg Capsule) 0.4 mg PO BEDTIME [facility] Last Admin: 06/09/25 20:49 Dose: 0.4 mg Warfarin Sodium (Warfarin 3 Mg Tablet) 3 mg PO 1400 [facility] Last Admin: 06/09/25 14:49 Dose: 3 mg Vitals/I&O/Wt Last Vital Signs Temp 97.9 F 06/10/25 07:58 Pulse 94 06/10/25 07:58 Resp 16 06/10/25 07:58 BP 146/72 06/10/25 07:58 Pulse Ox 95 06/10/25 07:35 O2 Del Method Nasal Cannula 06/10/25 07:35 O2 Flow Rate 2 06/10/25 07:35 06/09/25 06/10/25 06/10/25 22:59 06:59 14:59 Intake Total 720 / 1610 420 / 2030 360 / 360 Output Total 200 / 400 300 / 700 250 / 250 Balance 520 / 1210 120 / 1330 110 / 110 Weight last 48 hrs Weight 173 lb 8 oz Weight 166 lb 1.6 oz Physical Exam 2 Narrative: GENERAL: The patient is alert and oriented times three. Not in any acute distress. HEENT: No significant pallor, icterus or lymphadenopathy.Oral cavity: There are no mucous membrane lesions. NECK: Trachea appears to be central. No masses noted. No JVD or thyromegaly appreciated. RESPIRATORY: Breath sounds are heard bilaterally with diminished intensity of breath sounds to the bases. Scattered coarse crackles. Occasional wheezing BREASTS: Deferred. HEART: The heart sounds are normal. No S3 or S4. No significant murmurs. No pericardial rub ABDOMEN: No vessel pulsations or distention. No tenderness. No organomegaly appreciated. Bowel sounds are normally heard. : Deferred. RECTAL: Deferred. LYMPHATIC: No lymphadenopathy noted in the neck. EXTREMITIES: No edema or cyanosis. No clubbing. MUSCULOSKELETAL: No acute joint deformities or swelling SKIN: There are no significant rashes or ecchymosis NEUROPSYCHIATRIC: The patient is alert and oriented x3. Appears to be in a good mood. No tremors or rigidity noted. Data 06/10/25 04:35 06/10/25 04:35 Other Labs: Laboratory Last Values WBC 23.81 10^3/uL (3.29-11.43) H 06/10/25 04:35 RBC 3.80 10^6/uL (3.85-5.65) L 06/10/25 04:35 Hgb 11.50 g/dL (11.27-16.99) 06/10/25 04:35 Hct 34.5 % (37-53) L 06/10/25 04:35 MCV 90.8 fl (82-101) 06/10/25 04:35 MCH 30.3 pg (27-33) 06/10/25 04:35 MCHC 33.3 g/dL (30-55) 06/10/25 04:35 RDW 15.5 % (12.1-15.1) H 06/10/25 04:35 Plt Count 198 10^3/cmm (157-399) 06/10/25 04:35 MPV 10.2 fL (7.4-10.4) 06/10/25 04:35 Neut % (Auto) 81.5 % 06/10/25 04:35 Lymph % (Auto) 13.0 % 06/10/25 04:35 [place] % (Auto) 3.4 % 06/10/25 04:35 Eos % (Auto) 0.0 % 06/10/25 04:35 Baso % (Auto) 0.1 % 06/10/25 04:35 Neut # (Auto) 19.39 10^3/uL (1.8-7.7) H 06/10/25 04:35 Lymph # (Auto) 3.1 10^3/uL (0.8-4.8) 06/10/25 04:35 [place] # (Auto) 0.8 10^3/uL (0.2-0.9) 06/10/25 04:35 Eos # (Auto) 0.0 10^3/uL (0.0-0.8) 06/10/25 04:35 Baso # (Auto) 0.0 10^3/uL (0.0-0.1) 06/10/25 04:35 Nucleated RBC % (auto) 0 % 06/10/25 04:35 Nucleated RBCs # 0.0 /100WBC 06/10/25 04:35 PT 20.60 SECONDS (12.1-14.9) H 06/10/25 04:35 INR 1.66 (0.8-1.2) H 06/10/25 04:35 APTT 35.7 SECONDS (23.9-36.7) 06/10/25 04:35 Specimen Type Arterial 06/07/25 16:07 Sample Site Radial, left 06/07/25 16:07 ABG pH 7.45 (7.35-7.45) 06/07/25 16:07 ABG pCO2 35.9 mmHg (35-45) 06/07/25 16:07 ABG pO2 58.0 mmHg (80.0-100.0) L 06/07/25 16:07 ABG PO2/FiO2 Ratio 207 06/07/25 16:07 ABG HCO3 25.0 mmol/L (22-26) 06/07/25 16:07 ABG O2 Saturation 93.2 06/07/25 16:07 ABG Base Excess 1.3 mmol/L (-2.0-2.0) 06/07/25 16:07 Hema Test Pos 06/07/25 16:07 A-a O2 Gradient 12.9 mmHg (5-10) H 06/07/25 16:07 Hematocrit 43.5 % (42-52) 06/07/25 16:07 Hgb O2 Saturation 91.0 % (95-100) L 06/07/25 16:07 Carboxyhemoglobin 1.2 %THgb (0.4-20.1) 06/07/25 16:07 Methemoglobin 1.1 % (0.4-1.5) 06/07/25 16:07 Total Hemoglobin 14.2 g/dL (14-18) 06/07/25 16:07 Sodium 140.0 mmol/L (131-143) 06/07/25 16:07 Potassium 4.4 mmol/L (3.5-5.0) 06/07/25 16:07 Glucose 160.0 mg/dL (70-115) H 06/07/25 16:07 Ionized Calcium 1.2 mmol/L (1.1-1.4) 06/07/25 16:07 O2 Delivery Device Nc 06/07/25 16:07 O2 Liters/Min 2.0 % 06/07/25 16:07 FiO2 28.0 % 06/07/25 16:07 Political Organizer ID Lc 06/07/25 16:07 Sodium 136 mmol/L (136-145) 06/10/25 04:35 Potassium 4.6 mmol/L (3.5-5.1) 06/10/25 04:35 Chloride 100 mmol/L (98-107) 06/10/25 04:35 Carbon Dioxide 22 mmol/L (22-29) 06/10/25 04:35 Anion Gap 18.6 (5-19) 06/10/25 04:35 BUN 59 mg/dL (8-23) H 06/10/25 04:35 Creatinine 2.6 mg/dL (0.7-1.2) H 06/10/25 04:35 GFR Calculation Not Reportable 06/10/25 04:35 Glucose 182 mg/dL (65-115) H 06/10/25 04:35 POC Glucose 211 mg/dL (70-110) H 06/10/25 06:14 Estimat Average Glucose 123 06/07/25 15:19 Hemoglobin A1c 5.9 % (4.0-6.0) 06/07/25 15:19 Calculated Osmolality 303 mOsm/kg (285-295) H 06/10/25 04:35 Lactic Acid 1.5 mmol/L (0.5-2.2) 06/07/25 15:19 Calcium 8.8 mg/dL (8.5-10.5) 06/10/25 04:35 Phosphorus 4.0 mg/dL (2.5-4.5) 06/10/25 04:35 Magnesium 2.1 mg/dL (1.7-2.3) 06/10/25 04:35 Total Bilirubin 0.4 mg/dL (0.15-1.2) 06/10/25 04:35 AST 9 U/L (0-40) 06/10/25 04:35 ALT 15 U/L (0-41) 06/10/25 04:35 Alkaline Phosphatase 88 U/L (40-130) 06/10/25 04:35 Troponin T Baseline 62 ng/L (0-15) H 06/07/25 15:19 Troponin T 120 Minute 49.77 ng/L (0-15) H 06/07/25 17:33 Delta Troponin T -12.23 ABS# (0-10) L 06/07/25 17:33 Troponin T Hi Sens 6Hr 46.32 ng/L (0-15) H 06/07/25 21:01 Troponin T Hi Sens 6Hr Delta -15.68 ng/L (0-12) L 06/07/25 21:01 NT-Pro-B Natriuret Pep 2066 pg/mL (0-450) H 06/07/25 15:19 Total Protein 5.4 g/dL (6.6-8.7) L 06/10/25 04:35 Albumin 3.6 g/dL (3.5-5.2) 06/10/25 04:35 Globulin 1.8 g/dL (1.3-4.6) 06/10/25 04:35 Triglycerides 61 mg/dL (0-150) 06/07/25 15:19 Cholesterol 128 mg/dL (0-200) 06/07/25 15:19 LDL Cholesterol, Calc 62 mg/dL (50-129) 06/07/25 15:19 HDL Cholesterol 54 mg/dL (60-100) L 06/07/25 15:19 LDL/HDL Ratio 1.15 RATIO (0.00-3.22) 06/07/25 15:19 Cholesterol/HDL Ratio 2.37 mg/dL (1.0-5.00) 06/07/25 15:19 Procalcitonin 0.48 ng/mL (0-0.5) 06/07/25 15:19 Procalcitonin 0.50 ng/mL (0-0.5) 06/07/25 15:19 TSH 2.30 uIU/mL (0.27-4.20) 06/07/25 15:19 Urine Color Yellow (Yellow) 06/07/25 16:07 Urine Appearance Clear (CLEAR) 06/07/25 16:07 Urine pH 7.0 (5-7) 06/07/25 16:07 Ur Specific [place] 1.017 (1.005-1.030) 06/07/25 16:07 Urine Protein 3+ (Negative) A 06/07/25 16:07 Urine Glucose (UA) Negative (Normal) 06/07/25 16:07 Urine Ketones Trace (Negative) 06/07/25 16:07 Urine Blood 2+ (Negative) A 06/07/25 16:07 Urine Nitrate Negative (Negative) 06/07/25 16:07 Urine Bilirubin Negative (Negative) 06/07/25 16:07 Urine Urobilinogen 1.0 mg/dL (Negative) 06/07/25 16:07 Ur Leukocyte Esterase Negative (Negative) 06/07/25 16:07 Urine RBC 21-50 /hpf (0-2) H 06/07/25 16:07 Urine WBC 0-5 /hpf (0-5) 06/07/25 16:07 Ur Squamous Epith Cells 0-5 /hpf (0-5) 06/07/25 16:07 Amorphous Sediment Not Reportable 06/07/25 16:07 Urine Bacteria None seen /hpf (NONE) 06/07/25 16:07 Hyaline Casts 0.81 /lpf 06/07/25 16:07 Vancomycin Trough 19.7 ug/mL (10-15) H 06/09/25 20:52 Random Vancomycin 16.2 ug/mL (20.0-40.0) L 06/10/25 04:35 Influenza A (PCR) Negative (Negative) 06/07/25 16:10 Influenza Type B (PCR) Negative (Negative) 06/07/25 16:10 RSV (PCR) Negative (Negative) 06/07/25 16:10 SARS-CoV-2 (PCR) Negative (Negative) 06/07/25 16:10 Micro: Microbiology 06/07/25 16:07 Urine Culture - Preliminary Urine,Clean Catch A&P Assessment and plan 1. Atrial fibrillation with rapid ventricular response: The ventricular response rate seems to be in the normal range. Patient may continue on the current medications. 2. Chronic heart failure with preserved ejection fraction (HFpEF): The heart failure is compensated. They continue on the current management. IV Lasix on a as needed basis. 3. Essential (primary) hypertension: Currently normotensive. 4. CLL (chronic lymphocytic leukemia): Clinically stable. No specific symptoms. 5. Pneumonia of both lower lobes due to infectious organism: The oxygenation seems to be appropriate. Patient is remaining afebrile. 6. Acute on chronic renal insufficiency: The BUN/creatinine levels are going up slightly. It could be related to the steroids. Careful hydration may be appropriate 7. Dyslipidemia: Continue on the current medications 8. Type 2 diabetes mellitus with stage 3b chronic kidney disease, without long- term current use of insulin: Continue on the current management 9. COPD exacerbation: Respiratory status seems to be stable. Management as per the primary Plan: Careful hydration. Repeat BMP. Continue on the current medication for the time being PDMP PDMP Reviewed: Not Reviewed Attestations 2 Medical Necessity Statement*: Deferred to the primary Coding Level of Care Code 59338 Diagnoses Atrial fibrillation with rapid ventricular response I48.91 Chronic heart failure with preserved ejection fraction (HFpEF) I50.32 Heart failure chronicity: chronic Essential (primary) hypertension I10 CLL (chronic lymphocytic leukemia) C91.10 Pneumonia of both lower lobes due to infectious organism J18.9 Lung location: lower lobe of lung Pneumonia type: due to unspecified organism Acute on chronic renal insufficiency N28.9; N18.9 Dyslipidemia E78.5 Type 2 diabetes mellitus with stage 3b chronic kidney disease, without long-term current use of insulin E11.22; N18.32 Chronic kidney disease stage: stage 3 (moderate) Chronic kidney disease stage 3 subtype: stage 3b (GFR 30-44) Diabetes mellitus complication detail: with chronic kidney disease Diabetes mellitus complication status: with kidney complications Diabetes mellitus group home insulin use: without group home use COPD exacerbation J44.1
--- NOTE | 2025-06-10 12:50 | P.PN_ITS ---
Subjective 2 Subjective: feels better, wants to go home Vitals/I&O/Wt Last Vital Signs Temp 98 F 06/10/25 11:37 Pulse 80 06/10/25 11:37 Resp 14 06/10/25 11:37 BP 149/70 06/10/25 11:37 Pulse Ox 95 06/10/25 11:37 O2 Del Method Nasal Cannula 06/10/25 11:37 O2 Flow Rate 2 06/10/25 11:04 06/09/25 06/10/25 06/10/25 22:59 06:59 14:59 Intake Total 720 / 1610 420 / 2030 720 / 720 Output Total 200 / 400 300 / 700 250 / 250 Balance 520 / 1210 120 / 1330 470 / 470 Weight last 48 hrs Weight 78.698 kg Weight 75.342 kg Physical Exam 2 Const: COMMON NORMALS: no acute distress and patient oriented x3 Eye: COMMON NORMALS: Equal, round and reactive pupils present PUPIL: Yes Equal, round and reactive pupils present Resp: COMMON NORMALS: normal respiratory effort, No retractions, No use of accessory muscles and clear to auscultation bilaterally AUSCULTATION: clear to auscultation bilaterally, crackles and wheezes Cardio: COMMON NORMALS: regular rate, regular rhythm, S1 normal heart sound present and S2 normal heart sound present RATE: regular rate and tachycardic RHYTHM: regular rhythm and abnormal rhythm irregularly irregular HEART SOUNDS: S1 normal heart sound present and S2 normal heart sound present GI: COMMON NORMALS: Normal to inspection, nondistended, normoactive bowel sounds present, Soft to palpation and non-tender PALPATION: Yes Soft to palpation Extremity: COMMON NORMALS: no calf tenderness and no pedal edema Neuro: COMMON NORMALS: patient oriented x3, CN's II-XII intact bilaterally and moves all extremities Psych: COMMON NORMALS: mental status grossly normal Data 06/10/25 04:35 06/10/25 04:35 Micro: Microbiology 06/07/25 16:07 Urine Culture - Final Urine,Clean Catch A&P Assessment and plan 1. Acute on chronic renal insufficiency: Plan: 1. Acute hypoxic respiratory failure: 2. Pneumonia: 3. Atrial fibrillation with rapid ventricular response: 4. Sepsis: check UA, repeat Creat, add CPK monitor I/O appreciate cardiology input, continue current regimen dc in AM PDMP PDMP Reviewed: Not Reviewed Attestations 2 Medical Necessity Statement*: monitor labs Coding Level of Care Code 10004 Diagnoses Acute on chronic renal insufficiency N28.9; N18.9
[2025-06-10 20:15] LABS: Glucose Urine UA Negative (Normal); Nitrate Urine Negative (Negative); Specific Gravity, Urine 1.025 (1.005-1.030)
[2025-06-10 20:18] LABS: Add Urine Microscopic? YES
[2025-06-10] MEDS: ATORVASTATIN 20 MG TABLET PO (21:14)
[2025-06-11] VITALS (10 sets, daily range): BP systolic 140–167; BP diastolic 76–80; PULSE 68–118; RESP 16–18; TEMP 36.4–36.8; O2SAT 92–97
[2025-06-11] MEDS: piperacillin-tazobactam 3.375 GM in sodium chloride 0.9% (plus) 50 ML IV ×2 (01:25→10:39)
[2025-06-11] MEDS: dilTIAZem ER (24HR) 180 mg Capsule PO (04:20)
[2025-06-11 09:17] LABS: INR 1.94 (0.8-1.2); Prothrombin Time 23.30 SECONDS (12.1-14.9)
[2025-06-11 11:07] LABS: Alanine Aminotransferase 28 U/L (0-41); Albumin Level 3.4 g/dL (3.5-5.2); Alkaline Phosphatase 88 U/L (40-130); Anion Gap 15.1 (5-19); Aspartate Amino Transferase 19 U/L (0-40); Blood Urea Nitrogen 56 mg/dL (8-23); Calcium 8.7 mg/dL (8.5-10.5); Carbon Dioxide 24 mmol/L (22-29); Chloride 102 mmol/L (98-107); Globulin 2.5 g/dL (1.3-4.6); Glucose 163 mg/dL (65-115); Osmolality Calculated 301 mOsm/kg (285-295); Potassium 5.1 mmol/L (3.5-5.1); Sodium 136 mmol/L (136-145); Total Protein 5.9 g/dL (6.6-8.7)
--- NOTE | 2025-06-11 11:23 | P.DS_ITS ---
Discharge Providers Date of Admission: 06/07/25 18:06 Date of Discharge: June 11, 2025 Attending Provider at Admission: Je Rodriguez MD Attending Provider at Discharge: Freddy Chen MD Primary Care Provider: Autumn Pierre DO Diagnoses at Discharge Discharge Diagnosis 1. Atrial fibrillation with rapid ventricular response: 2. Chronic heart failure with preserved ejection fraction (HFpEF): 3. Essential (primary) hypertension: 4. CLL (chronic lymphocytic leukemia): 5. Pneumonia of both lower lobes due to infectious organism: 6. Acute on chronic renal insufficiency: 7. Dyslipidemia: 8. Type 2 diabetes mellitus with stage 3b chronic kidney disease, without long- term current use of insulin: 9. COPD exacerbation: Reason for Visit Reason for Visit: sob Hospital Course Hospital Course Jesús Cole is a 85 year old male with a past medical history of atrial fibrillation, COPD, CHF, who presents to [facility] due to shortness of breath, productive cough, fevers, chills, palpitations. Currently patient is alert oriented x 3, following commands, does report increased shortness of breath over the last few weeks, productive cough, fevers, chills, does report 1 episode of nausea and vomiting, palpitations, no abdominal pain, passing gas, no diarrhea, no sick contacts, recent travel, he does use 2 L oxygen at home he was placed on 3 L, Hospital course: The patient was admitted with acute on chronic renal failure hypoxemic respirat ory failure pneumonia A-fib with RVR. As well as sepsis. Labs including urinalysis were checked. Cardiology was also consulted. Medications were adjusted. Chronic conditions including CLL as well as COPD were monitored. Discharged in stable condition Physical Exam Const: COMMON NORMALS: no acute distress and patient oriented x3 Eye: COMMON NORMALS: Equal, round and reactive pupils present PUPIL: Yes Equal, round and reactive pupils present Resp: COMMON NORMALS: normal respiratory effort, No retractions, No use of accessory muscles and clear to auscultation bilaterally AUSCULTATION: clear to auscultation bilaterally, crackles and wheezes Cardio: COMMON NORMALS: regular rate, regular rhythm, S1 normal heart sound present and S2 normal heart sound present RATE: regular rate and tachycardic RHYTHM: regular rhythm and abnormal rhythm irregularly irregular HEART SOUNDS: S1 normal heart sound present and S2 normal heart sound present GI: COMMON NORMALS: Normal to inspection, nondistended, normoactive bowel sounds present, Soft to palpation and non-tender PALPATION: Yes Soft to palpation Extremity: COMMON NORMALS: no calf tenderness and no pedal edema Neuro: COMMON NORMALS: patient oriented x3, CN's II-XII intact bilaterally and moves all extremities Psych: COMMON NORMALS: mental status grossly normal Discharge Data Studies Completed and Pending Completed Studies During Hospitalization Category Date Time Status CT chest abdpel w/*[id number] Stat Cat Scan 06/07/25 16:23 Completed XR chest 1V portable [id number] Stat Exams 06/07/25 15:01 Completed Pending at discharge Category Date Time Status Blood Culture Stat Lab 06/07/25 15:46 Results Prothrombin Time INR AM LABS Lab 06/12/25 04:00 Ordered Radiology Impressions Chest X-Ray 06/07/25 15:01 IMPRESSION: 1. Some pulmonary vascular congestion/mild CHF. 2. Bibasilar interstitial lung disease, unchanged. Chest/Abdomen/Pelvis CT 06/07/25 16:23 IMPRESSION: 1. Stable mediastinal lymph nodes. 2. New left lower lobe infiltrates. Acute Finding could represent pneumonic process. Imaging follow-up until resolution is advised. 3. Coronary calcifications. IMPRESSION: 1. Previously seen pancreatic body hypodense lesion has shown interval increase in size now measuring 2.9 x 2.7 cm. Neoplastic process can not be excluded. MRI of the pancreas without and with contrast for further evaluation is advised. 2. Diffuse colonic stool material. Clinical correlation to exclude constipation is advised. 3. Sigmoid and descending colon diverticulosis. 4. Additional findings as described. COMMENTS: Consistent with the [employer]'s Incidental Findings Committee white paper (J Am Ethan Radiol 2018): Any incidental renal lesion less than 1 cm or classified as too small to characterize, or any incidental cystic renal lesion characterized as simple-appearing, is likely benign. No follow-up imaging is recommended for these lesions per consensus recommendations based on imaging criteria. Laboratory Results WBC 23.81 10^3/uL (3.29-11.43) H 06/10/25 04:35 RBC 3.80 10^6/uL (3.85-5.65) L 06/10/25 04:35 Hgb 11.50 g/dL (11.27-16.99) 06/10/25 04:35 Hct 34.5 % (37-53) L 06/10/25 04:35 MCV 90.8 fl (82-101) 06/10/25 04:35 MCH 30.3 pg (27-33) 06/10/25 04:35 MCHC 33.3 g/dL (30-55) 06/10/25 04:35 RDW 15.5 % (12.1-15.1) H 06/10/25 04:35 Plt Count 198 10^3/cmm (157-399) 06/10/25 04:35 MPV 10.2 fL (7.4-10.4) 06/10/25 04:35 Neut % (Auto) 81.5 % 06/10/25 04:35 Lymph % (Auto) 13.0 % 06/10/25 04:35 [place] % (Auto) 3.4 % 06/10/25 04:35 Eos % (Auto) 0.0 % 06/10/25 04:35 Baso % (Auto) 0.1 % 06/10/25 04:35 Neut # (Auto) 19.39 10^3/uL (1.8-7.7) H 06/10/25 04:35 Lymph # (Auto) 3.1 10^3/uL (0.8-4.8) 06/10/25 04:35 [place] # (Auto) 0.8 10^3/uL (0.2-0.9) 06/10/25 04:35 Eos # (Auto) 0.0 10^3/uL (0.0-0.8) 06/10/25 04:35 Baso # (Auto) 0.0 10^3/uL (0.0-0.1) 06/10/25 04:35 Nucleated RBC % (auto) 0 % 06/10/25 04:35 Nucleated RBCs # 0.0 /100WBC 06/10/25 04:35 PT 23.30 SECONDS (12.1-14.9) H 06/11/25 08:06 INR 1.94 (0.8-1.2) H 06/11/25 08:06 APTT 35.7 SECONDS (23.9-36.7) 06/10/25 04:35 Specimen Type Arterial 06/07/25 16:07 Sample Site Radial, left 06/07/25 16:07 ABG pH 7.45 (7.35-7.45) 06/07/25 16:07 ABG pCO2 35.9 mmHg (35-45) 06/07/25 16:07 ABG pO2 58.0 mmHg (80.0-100.0) L 06/07/25 16:07 ABG PO2/FiO2 Ratio 207 06/07/25 16:07 ABG HCO3 25.0 mmol/L (22-26) 06/07/25 16:07 ABG O2 Saturation 93.2 06/07/25 16:07 ABG Base Excess 1.3 mmol/L (-2.0-2.0) 06/07/25 16:07 Hema Test Pos 06/07/25 16:07 A-a O2 Gradient 12.9 mmHg (5-10) H 06/07/25 16:07 Hematocrit 43.5 % (42-52) 06/07/25 16:07 Hgb O2 Saturation 91.0 % (95-100) L 06/07/25 16:07 Carboxyhemoglobin 1.2 %THgb (0.4-20.1) 06/07/25 16:07 Methemoglobin 1.1 % (0.4-1.5) 06/07/25 16:07 Total Hemoglobin 14.2 g/dL (14-18) 06/07/25 16:07 Sodium 140.0 mmol/L (131-143) 06/07/25 16:07 Potassium 4.4 mmol/L (3.5-5.0) 06/07/25 16:07 Glucose 160.0 mg/dL (70-115) H 06/07/25 16:07 Ionized Calcium 1.2 mmol/L (1.1-1.4) 06/07/25 16:07 O2 Delivery Device Nc 06/07/25 16:07 O2 Liters/Min 2.0 % 06/07/25 16:07 FiO2 28.0 % 06/07/25 16:07 Speech Coach ID Lc 06/07/25 16:07 Sodium 136 mmol/L (136-145) 06/11/25 10:36 Potassium 5.1 mmol/L (3.5-5.1) 06/11/25 10:36 Chloride 102 mmol/L (98-107) 06/11/25 10:36 Carbon Dioxide 24 mmol/L (22-29) 06/11/25 10:36 Anion Gap 15.1 (5-19) 06/11/25 10:36 BUN 56 mg/dL (8-23) H 06/11/25 10:36 Creatinine 2.6 mg/dL (0.7-1.2) H 06/11/25 10:36 GFR Calculation Not Reportable 06/11/25 10:36 Glucose 163 mg/dL (65-115) H 06/11/25 10:36 POC Glucose 172 mg/dL (70-110) H 06/11/25 11:07 Estimat Average Glucose 123 06/07/25 15:19 Hemoglobin A1c 5.9 % (4.0-6.0) 06/07/25 15:19 Calculated Osmolality 301 mOsm/kg (285-295) H 06/11/25 10:36 Lactic Acid 1.5 mmol/L (0.5-2.2) 06/07/25 15:19 Calcium 8.7 mg/dL (8.5-10.5) 06/11/25 10:36 Phosphorus 4.0 mg/dL (2.5-4.5) 06/10/25 04:35 Magnesium 2.1 mg/dL (1.7-2.3) 06/10/25 04:35 Total Bilirubin 0.3 mg/dL (0.15-1.2) 06/11/25 10:36 AST 19 U/L (0-40) 06/11/25 10:36 ALT 28 U/L (0-41) 06/11/25 10:36 Alkaline Phosphatase 88 U/L (40-130) 06/11/25 10:36 Creatine Kinase 30 U/L (39-308) L 06/10/25 04:35 Troponin T Baseline 62 ng/L (0-15) H 06/07/25 15:19 Troponin T 120 Minute 49.77 ng/L (0-15) H 06/07/25 17:33 Delta Troponin T -12.23 ABS# (0-10) L 06/07/25 17:33 Troponin T Hi Sens 6Hr 46.32 ng/L (0-15) H 06/07/25 21:01 Troponin T Hi Sens 6Hr Delta -15.68 ng/L (0-12) L 06/07/25 21:01 NT-Pro-B Natriuret Pep 2066 pg/mL (0-450) H 06/07/25 15:19 Total Protein 5.9 g/dL (6.6-8.7) L 06/11/25 10:36 Albumin 3.4 g/dL (3.5-5.2) L 06/11/25 10:36 Globulin 2.5 g/dL (1.3-4.6) 06/11/25 10:36 Triglycerides 61 mg/dL (0-150) 06/07/25 15:19 Cholesterol 128 mg/dL (0-200) 06/07/25 15:19 LDL Cholesterol, Calc 62 mg/dL (50-129) 06/07/25 15:19 HDL Cholesterol 54 mg/dL (60-100) L 06/07/25 15:19 LDL/HDL Ratio 1.15 RATIO (0.00-3.22) 06/07/25 15:19 Cholesterol/HDL Ratio 2.37 mg/dL (1.0-5.00) 06/07/25 15:19 Procalcitonin 0.48 ng/mL (0-0.5) 06/07/25 15:19 Procalcitonin 0.50 ng/mL (0-0.5) 06/07/25 15:19 TSH 2.30 uIU/mL (0.27-4.20) 06/07/25 15:19 Urine Color Yellow (Yellow) 06/10/25 20:00 Urine Appearance Cloudy (CLEAR) A 06/10/25 20:00 Urine pH 5.0 (5-7) 06/10/25 20:00 Ur Specific [place] 1.025 (1.005-1.030) 06/10/25 20:00 Urine Protein 1+ (Negative) A 06/10/25 20:00 Urine Glucose (UA) Negative (Normal) 06/10/25 20:00 Urine Ketones Trace (Negative) 06/10/25 20:00 Urine Blood Negative (Negative) 06/10/25 20:00 Urine Nitrate Negative (Negative) 06/10/25 20:00 Urine Bilirubin Negative (Negative) 06/10/25 20:00 Urine Urobilinogen 0.2 mg/dL (Negative) 06/10/25 20:00 Ur Leukocyte Esterase Negative (Negative) 06/10/25 20:00 Urine RBC 0-2 /hpf (0-2) 06/10/25 20:00 Urine WBC 0-5 /hpf (0-5) 06/10/25 20:00 Ur Squamous Epith Cells 0-5 /hpf (0-5) 06/10/25 20:00 Amorphous Sediment Not Reportable 06/10/25 20:00 Urine Bacteria None seen /hpf (NONE) 06/10/25 20:00 Hyaline Casts 1.65 /lpf 06/10/25 20:00 Vancomycin Trough 19.7 ug/mL (10-15) H 06/09/25 20:52 Random Vancomycin 13.3 ug/mL (20.0-40.0) L 06/11/25 06:27 Influenza A (PCR) Negative (Negative) 06/07/25 16:10 Influenza Type B (PCR) Negative (Negative) 06/07/25 16:10 RSV (PCR) Negative (Negative) 06/07/25 16:10 SARS-CoV-2 (PCR) Negative (Negative) 06/07/25 16:10 Vitals Last Vital Signs Temp 98.1 F 06/11/25 07:32 Pulse 77 06/11/25 08:36 Resp 18 06/11/25 08:36 BP 167/80 06/11/25 07:32 Pulse Ox 97 06/11/25 08:36 O2 Del Method Nasal Cannula 06/11/25 08:36 O2 Flow Rate 2 06/11/25 08:36 Discharge Plan Discharge Patient Disposition: Home Condition: Stable Prescriptions: New prednisone 10 mg tablet 20 mg PO DAILY Qty: 10 0RF Continued formoterol fumarate [Perforomist] 20 mcg/2 mL solution for nebulization 2 ml inhalation BID Qty: 120 6RF budesonide 0.5 mg/2 mL suspension for nebulization 0.5 mg inhalation BID PRN (Reason: COPD J44.9) Qty: 60 2RF metoprolol tartrate 25 mg tablet 12.5 mg PO DAILY Qty: 30 1RF allopurinol 300 mg tablet 150 mg PO QAM Qty: 90 1RF (DME) mucus clearing device Device See Rx Instructions .ROUTE .MEDSUPPLY Qty: 1 0RF Rx Instructions: As directed tamsulosin [Flomax] 0.4 mg capsule 0.4 mg PO BEDTIME Qty: 90 1RF warfarin 4 mg tablet 4 mg PO DAILY Qty: 90 3RF Protocol: Dose Management Condition: Sunday Dose/Route: 3 mg Instruction: 1 x 3 mg tablet Condition: Sunday Dose/Route: 3 mg Instruction: 1 x 3 mg tablet Condition: Sunday Dose/Route: 3 mg Instruction: 1 x 3 mg tablet Condition: Sunday Dose/Route: 3 mg Instruction: 1 x 3 mg tablet Condition: Dose/Route: 3 mg Instruction: 1 x 3 mg tablet Condition: Sunday Dose/Route: 3 mg Instruction: 1 x 3 mg tablet Condition: Sunday Dose/Route: 3 mg Instruction: 1 x 3 mg tablet Protocol Text: Adjustment Start Date: Sunday06/15/25 INR Value: 2.2 INR Date: 06/15/25 Recheck Date: 06/22/25 amiodarone [Pacerone] 200 mg tablet 200 mg PO DAILY Qty: 90 0RF docusate sodium [Colace] 100 mg Capsule 100 mg PO BID PRN (Reason: Constipation) Tradjenta 5 mg Tablet 5 mg PO DAILY PreserVision AREDS-2 250-90-40-1 mg Capsule 1 tab PO BID warfarin 3 mg tablet 3 mg PO DAILY Protocol: Dose Management Condition: Sunday Dose/Route: 3 mg Instruction: 1 x 3 mg tablet Condition: Sunday Dose/Route: 3 mg Instruction: 1 x 3 mg tablet Condition: Sunday Dose/Route: 3 mg Instruction: 1 x 3 mg tablet Condition: Sunday Dose/Route: 3 mg Instruction: 1 x 3 mg tablet Condition: Dose/Route: 3 mg Instruction: 1 x 3 mg tablet Condition: Sunday Dose/Route: 3 mg Instruction: 1 x 3 mg tablet Condition: Sunday Dose/Route: 3 mg Instruction: 1 x 3 mg tablet Protocol Text: Adjustment Start Date: Sunday06/15/25 INR Value: 2.2 INR Date: 06/15/25 Recheck Date: 06/22/25 hydrocodone-acetaminophen 5-325 mg tablet 1 tab PO .Q4-6H PRN (Reason: dental Pain) fluticasone propionate 50 mcg/actuation spray,suspension 2 spray INTRANASAL DAILY atorvastatin 20 mg tablet 20 mg PO BEDTIME diltiazem HCl 180 mg capsule,extended release 24 hr 180 mg PO DAILY famotidine 20 mg tablet 20 mg PO BID PRN (Reason: GERD) albuterol sulfate 90 mcg/actuation HFA aerosol inhaler 2 puff inhalation Q4H PRN (Reason: Shortness Of Breath) Yupelri 175 mcg/3 mL solution for nebulization 175 mcg inhalation DAILY PRN (Reason: COPD J44.9) No Action citalopram 40 mg tablet 40 mg PO DAILY Qty: 90 1RF citalopram 20 mg tablet 20 mg PO DAILY Qty: 30 0RF bumetanide 0.5 mg tablet 0.5 mg PO .Every other day Qty: 60 0RF Discharge Order = DC NOW: Discharge Order (Routine); Ordered 06/11/25 Ordered By: Freddy Chen Referrals: Autumn Pierre DO [Primary Care Provider, [facility]] - 06/16/25 3:00 pm Referral Note: Discharge Diet: Cardiac Discharge Activity: Resume usual activity Patient Instructions: Prednisone (By mouth), Cefdinir (By mouth), A-fib (Atrial Fibrillation) (DC), COPD (Chronic Obstructive Pulmonary Disease) (DC), Opioid Safety, Patient Portal & Paulie Instructions Activity Restrictions/Additional Instructions: take medicines as prescribed check BMP in one week followup with pcp and consider nephrology consult about restarting bumex in one week Discharge Attestations Time Spent in Discharge Care*: other Quality Metrics Clinical Quality Measures [ No reported AMI, CVA or VTE this stay] Coding Level of Care Code Acute Code for Chg Fwd Diagnoses Atrial fibrillation with rapid ventricular response I48.91 Chronic heart failure with preserved ejection fraction (HFpEF) I50.32 Heart failure chronicity: chronic Essential (primary) hypertension I10 CLL (chronic lymphocytic leukemia) C91.10 Pneumonia of both lower lobes due to infectious organism J18.9 Lung location: lower lobe of lung Pneumonia type: due to unspecified organism Acute on chronic renal insufficiency N28.9; N18.9 Dyslipidemia E78.5 Type 2 diabetes mellitus with stage 3b chronic kidney disease, without long-term current use of insulin E11.22; N18.32 Chronic kidney disease stage: stage 3 (moderate) Chronic kidney disease stage 3 subtype: stage 3b (GFR 30-44) Diabetes mellitus complication detail: with chronic kidney disease Diabetes mellitus complication status: with kidney complications 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
== END 2025-06-11 12:45 | disposition home or self-care (01) | DRG 871 ==
LOC: ER 18:15 → MEDSURG 21:26
PROVIDERS: Admitting Provider Family Medicine; Emergency Provider Physician Assistant; PCP Family Medicine; Visit Provider Internal Medicine
DX: A41.9 Sepsis, unspecified organism (principal); J18.9 Pneumonia, unspecified organism; J96.01 Acute respiratory failure with hypoxia; I48.20 Chronic atrial fibrillation, unspecified; I13.0 Hypertensive heart and chronic kidney disease with heart failure and stage 1 through stage 4 chronic kidney disease, or unspecified chronic kidney disease; I50.32 Chronic diastolic (congestive) heart failure; C91.10 Chronic lymphocytic leukemia of B-cell type not having achieved remission; J44.1 Chronic obstructive pulmonary disease with (acute) exacerbation; J44.0 Chronic obstructive pulmonary disease with (acute) lower respiratory infection; N17.9 Acute kidney failure, unspecified; N18.32 Chronic kidney disease, stage 3b; E11.22 Type 2 diabetes mellitus with diabetic chronic kidney disease; E78.5 Hyperlipidemia, unspecified; F32.9 Major depressive disorder, single episode, unspecified; K21.9 Gastro-esophageal reflux disease without esophagitis; G31.09 Other frontotemporal neurocognitive disorder; F02.80 Dementia in other diseases classified elsewhere, unspecified severity, without behavioral disturbance, psychotic disturbance, mood disturbance, and anxiety; M10.9 Gout, unspecified; Z96.653 Presence of artificial knee joint, bilateral; Z96.643 Presence of artificial hip joint, bilateral; Z79.01 Long term (current) use of anticoagulants; Z87.891 Personal history of nicotine dependence
CPT/HCPCS: 36415; 36416; 36600; 71045; 71260; 74177; 80051; 80053; 80061; 80202; 81001; 82330; 82550; 82805; 82962; 83036; 83605; 83735; 83880; 84100; 84145; 84443; 84484; 85025; 85610; 85730; 87040; 87086; 87637; 93005; 94640; 96365; 96372; 96375; 99285; J1815; J2470; J2543; J2919; J3373; J3490; J7040; J7050; J7120; J7512; J7626; J9999; Q3014

== ENCOUNTER → 2025-06-16 15:58 | Outpatient (BNVA) | payer MEDICARE, BC, SELFPAY | PROVIDERS: PCP Family Medicine; Visit Provider Family Medicine | DX: N18.9 Chronic kidney disease, unspecified (principal) | CPT/HCPCS: 80048 ==

== ENCOUNTER → 2025-06-25 13:18 | Outpatient (BNVA) | payer MEDICARE, BC, SELFPAY | PROVIDERS: PCP Family Medicine; Visit Provider Family Medicine | DX: N18.32 Chronic kidney disease, stage 3b (principal) | CPT/HCPCS: 80048 ==